=== PATIENT | male | born 1940 | race Caucasian/White ===

== ENCOUNTER → 2017-07-06 15:06 | Outpatient (CLI) | payer OTHER, MEDICARE, SELFPAY | PROVIDERS: Visit Provider Urology | DX: N39.0 Urinary tract infection, site not specified (principal) | CPT/HCPCS: 87086; 87088 ==

== ENCOUNTER → 2018-12-06 09:56 | Outpatient (CLI) | payer OTHER, MEDICARE, SELFPAY ==
[2016-09-18 09:07] VITALS: BMI 28.3
[2018-12-06 11:13] LABS: PSA,Total- Diagnostic < 0.01 ng/mL (0.0-4.0)
== END ==
PROVIDERS: Family Provider Family Medicine; PCP Family Medicine; Referring Provider Urology; Visit Provider Urology
DX: C61 Malignant neoplasm of prostate (principal)
CPT/HCPCS: 36415; 84153

== ENCOUNTER 2021-12-06 04:09 | Emergency (ER) | payer OTHER, MEDICARE, SELFPAY ==
[2021-12-06 04:09] VITALS: BP 151/91; PULSE 73; RESP 17; TEMP 35.8; O2SAT 99; BMI 24.2
--- NOTE | 2021-12-06 04:43 | EKG12_ITS ---
Test Reason : CP Blood Pressure : / mmHG Vent. Rate : 072 BPM Atrial Rate : 072 BPM P-R Int : 218 ms QRS Dur : 084 ms QT Int : 376 ms P-R-T Axes : 105 -07 038 degrees QTc Int : 411 ms Sinus rhythm with 1st degree A-V block Otherwise normal ECG Confirmed by MATHEW YOUNG, ISAAC ([id number]), website/blog editor MC HOWELL ([id number]) on 12/09/2021 12:35:40 PM Referred By: KT Confirmed By:ISAAC CARMONA MD
--- NOTE | 2021-12-06 04:50 | RAD_ITS ---
EXAM: XR CHEST, 2 VIEWS CLINICAL INDICATION: chest pain TECHNIQUE: Frontal and lateral views of the chest. This report was created using [employer] report generation technology. COMPARISON: None. FINDINGS: LUNGS AND PLEURAL SPACES: Unremarkable. No consolidation or edema. No pneumothorax. No effusion. HEART: Unremarkable. Cardiac silhouette not enlarged. No pulmonary venous hypertension. MEDIASTINUM: Mild-moderate elongation of the thoracic aorta. No hilar enlargement. BONES/JOINTS: Mild thoracic dextroscoliosis. Cholecystectomy clips. Mild thoracic degenerative spurring. No acute osseous abnormality. SOFT TISSUES: Unremarkable. RAD/Chest PA and Lateral IMPRESSION: No radiographic evidence of acute cardiopulmonary disease. Electronically Signed: Diego Lopez MD at 5:20 EDT ,
[2021-12-06 04:53] LABS: Absolute Lymphocyte Count 2.47 X10^3/uL (0.83-4.51); Absolute Neutrophil Count 3.8 X10^3/uL (2.0-7.7); Basophil# 0.04 X10^3/uL; Basophil% 0.5 % (0-1); Eosinophil# 0.18 X10^3/uL; Eosinophils% 2.4 % (0-5); Hematocrit 47.3 % (40-54); Hemoglobin 15.9 g/dL (13.0-16.5); Lymphocyte # 2.47 X10^3/ul (0.83-4.51); Lymphocyte % 33.3 % (19-41); Mean Corp Hgb Conc 33.6 g/dL (32-36); Mean Corpuscular Volume 89.2 fL (80-94); Mean Platelet Vol. 9.6 fl (6.2-12.0); Monocyte# 0.89 X10^3/uL; NRBC Flagged by Analyzer 0 % (0-5); Neutrophil # 3.81 X10^3/uL (2.7-7.7); Neutrophil % 51.5 % (47-70); Platelet Count 198 K/mm3 (150-450); RBC Distribution Width CV 13.1 % (11.6-14.6); RBC Distribution Width SD 42.6 fl (35.1-43.9); White Blood Count 7.4 K/mm3 (4.4-11.0)
[2021-12-06] MEDS: Aspirin 325 MG Tablet PO (05:04)
[2021-12-06] MEDS: Orphenadrine 60 MG/2 ML Ampul IV (05:04)
[2021-12-06 05:09] VITALS: BP 157/72; PULSE 66; RESP 16; O2SAT 95
[2021-12-06 05:10] LABS: Anion Gap 7 (5-15); BUN 24 mg/dL (7-18); BUN/Creat Ratio 21.6 RATIO (10-20); Calcium,Total 9.3 mg/dL (8.5-10.1); Chloride 101 mmol/L (98-107); Creatinine, Serum 1.11 mg/dL (0.70-1.30); EST Glomerular Filtration Rate 68 mL/min (>60); Est Glom Filt Rate - Afr Amer 82 mL/min (>60); Estimated Creatinine Clearance 55.72 ml/min; Glucose 128 mg/dL (74-106); Magnesium 1.4 mg/dL (1.6-2.6); Potassium 3.8 mmol/L (3.5-5.1); Sodium Level 138 mmol/L (136-145); Troponin-I HS 6 pg/mL (3.0-78.0)
--- NOTE | 2021-12-06 05:59 | EDS_ITS ---
HPI History of Present Illness Chief Complaint: Chest Pain Narrative Narrative: Patient is a 81-year-old male with past medical history of hypertension type 2 diabetes and hyperlipidemia. He states that he has had a mild cough for the past 3 to 4 days and now is noticed some left-sided chest pain especially after coughing. He states because of his medical issues he is concerned that this chest pain could be cardiac or even a lung infection because of the cough and therefore comes in for evaluation. He denies any recent surgery travel history of DVT/PE. [facility] Home Medications aspirin 325 mg tablet 325 mg PO DAILY 04/28/16 [History Last Taken 09/07/16] atorvastatin 40 mg tablet 40 mg PO QHS 04/28/16 [History Last Taken Unknown] enalapril maleate 10 mg tablet (Vasotec) 10 mg PO DAILY 04/28/16 [History Last Taken 09/18/16] glucosamine 750 [id number] no1 644 mg-C 30 mg-jailyn 1 mg tablet (Osteo Bi-Flex Triple Strength) 1 ea PO DAILY 04/28/16 [History Last Taken Unknown] hydrochlorothiazide 12.5 mg capsule 12.5 mg PO DAILY 04/28/16 [History Last Taken Unknown] metformin 500 mg tablet 500 mg PO DAILY 04/28/16 [History Last Taken Unknown] metoprolol succinate 100 mg tablet,extended release 24 hr (Toprol XL) 100 mg PO DAILY 04/28/16 [History Last Taken Unknown] multivitamin with folic acid 400 mcg tablet (Thera) 1 tab PO DAILY 04/28/16 [History Last Taken Unknown] nitroglycerin 0.4 mg sublingual tablet 0.4 mg sublingual PRN PRN Angina 04/28/16 [History Last Taken Unknown] sucralfate 1 gram tablet 1 g PO QHS 04/28/16 [History Last Taken Unknown] clopidogrel 75 mg tablet 75 mg PO DAILY 09/10/16 [History Last Taken 09/07/16] metoprolol succinate 50 mg tablet,extended release 24 hr (Toprol XL) 50 mg PO DINNER 09/10/16 [History Last Taken 09/18/16] omeprazole 20 mg capsule,delayed release 20 mg PO DINNER 09/10/16 [History Last Taken Unknown] solifenacin 10 mg tablet (Vesicare) 10 mg PO DAILY 07/06/17 [History Last Taken Unknown] methocarbamol 500 mg tablet 500 mg PO 4X/DAY PRN PRN Muscle pain/spasm #40 tabs 12/06/21 [Rx Last Taken Unknown] Allergy/AdvReac Type Severity Reaction Status Date / Time nabumetone [From Relafen] AdvReac Other Verified 09/10/16 15:11 Surgical History (Updated 12/06/21 @ 04:14 by Aruna Watkins) History of heart artery stent Social History Smoking Status: Former smoker ROS ROS ED Constitutional Constitutional ED: Denies chills or fever(s) ENT ENT ED: Denies sore throat Cardiovascular Cardiovascular: Reports chest pain; Denies palpitations or racing heartbeat Respiratory/Chest Respiratory/Chest: Reports cough; Denies dyspnea Gastrointestinal Gastrointestinal: Denies abdominal pain, diarrhea, nausea or vomiting Genitourinary Genitourinary ED: Denies dysuria Musculoskeletal Musculoskeletal: Denies myalgias Integumentary Denies rash Neurologic Neurologic: Denies headache(s) Hematologic/Lymphatic Hematologic/Lymphatic: Reports easy bleeding and easy bruising EXAM Physical Exam Const Vital Signs: 12/06/21 04:09 12/06/21 04:12 12/06/21 05:09 Temperature 96.5 F L Temperature Source Temporal Pulse Rate 73 66 Respiratory Rate 17 16 Respiratory Effort Normal Respiratory Pattern Normal Blood Pressure 151/91 H 157/72 H Blood Pressure Mean 111 100 Pulse Ox 99 95 Oxygen Delivery Method Room Air Room Air 12/06/21 06:09 Temperature 98 F Temperature Source Pulse Rate 61 Respiratory Rate 17 Respiratory Effort Respiratory Pattern Blood Pressure 141/82 H Blood Pressure Mean Pulse Ox 96 Oxygen Delivery Method Positive well nourished and well developed General Appearance ED: well developed HEENT Reports moist mucous membranes HEENT Narrative: No tongue or lip swelling no oral lesions no airway edema or compromise Eyes PERRL and EOMs intact bilaterally Neck supple and no JVD Chest Wall Chest Narrative: Patient has reproducible left anterior chest wall pain in the intercostal regions of ribs 4-6 that he states is the same pain he has been experiencing. There is no bony deformity or crepitance or overlying soft tissue changes Resp normal respiratory effort and clear to auscultation bilaterally Resp Narrative: Breath sounds are diminished throughout but overall clear to auscultation with no signs of distress Cardio regular rate and regular rhythm Rate: other Other Details: Radial pulses are plus 2 out of 4 bilaterally are equal and symmetric GI normal to inspection, nondistended, normoactive bowel sounds, non-tender and non-distended GI Narrative: No voluntary guarding or rigidity no pulsatile mass Auscultation: normoactive bowel sounds Palpation: soft Extremity normal to inspection Extremity Narrative: No asymmetric edema no pitting edema negative Homans' sign bilaterally Neuro oriented x3 and CN's II-XII intact bilaterally Sensorium / Orientation: alert Psych mental status grossly normal Skin no rashes or lesions noted MDM MDM MDM Narrative Medical decision making narrative: Patient presented to the ER with stable vitals and a history and exam most consistent with chest wall pain. However he does have cough and there is concern this could be related to an underlying lung pathology and he does have history of CAD so a basic cardiac work-up was obtained. EKG was sinus rhythm and troponin was normal at 6. Chest x-ray reviewed no acute lung changes. On reevaluation patient reports improvement of the pain after aspirin and Norflex. Therefore at this time as his work-up is negative and his exam is most consistent with chest wall discomfort versus cardiac I do not feel there is need for further evaluation. Patient be placed on Robaxin to help with his symptoms and is otherwise safe for discharge Lab Data Attestation: I reviewed the patient's lab results. Labs: Laboratory Results - last 24 hr 12/06/21 12/06/21 04:15 04:15 WBC 7.4 RBC 5.30 Hgb 15.9 Hct 47.3 MCV 89.2 MCH 30.0 MCHC 33.6 RDW Std Deviation 42.6 RDW Coeff of Maria Ines 13.1 Plt Count 198 MPV 9.6 Immature Gran % (Auto) 0.300 Neut % (Auto) 51.5 Lymph % (Auto) 33.3 Sterling % (Auto) 12.0 H Eos % (Auto) 2.4 Baso % (Auto) 0.5 Absolute Neuts (auto) 3.8 Absolute Lymphs (auto) 2.47 Nucleated RBC % 0 Sodium 138 Potassium 3.8 Chloride 101 Carbon Dioxide 30.0 Anion Gap 7 BUN 24 H Creatinine 1.11 Estim Creat Clear Calc 55.72 Est GFR (MDRD) Af Amer 82 Est GFR (MDRD) Non-Af 68 BUN/Creatinine Ratio 21.6 H Glucose 128 H Calcium 9.3 Magnesium 1.4 L Troponin I High Sens 6 Radiography Diagnostic Testing: Clinical Impression(s) from Imaging Studies Chest X-Ray 12/06/21 04:50 IMPRESSION: No radiographic evidence of acute cardiopulmonary disease. Electronically Signed: Diego Lopez MD at 5:20 EDT , 2 view chest x-ray as interpreted by the emergency medicine physician reveals no acute infiltrate pneumothorax or pleural effusion Discharge Plan Triage Chief Complaint: Chest Pain ED Provider: Berry Harden Dx/Rx/DC Orders Clinical Impression: Anterior chest wall pain, Diabetes mellitus, type 2, Benign essential hypertension Instructions: ED Chest Pain, Noncardiac, ED Chest Wall Strain Prescriptions: New methocarbamol 500 mg tablet 500 mg PO 4X/DAY PRN PRN (Reason: Muscle pain/spasm) Qty: 40 0RF No Action atorvastatin 40 MG tablet 40 mg PO QHS Label Comments: CHOLESTEROL metformin 500 MG tablet 500 mg PO DAILY Label Comments: DIABETES enalapril maleate [Vasotec] 10 MG tablet 10 mg PO DAILY Label Comments: BP aspirin 325 MG tablet 325 mg PO DAILY Label Comments: WAS TOLD TO STOP FOR SURGERY 10 DAYS PRE OP sucralfate 1 GM tablet 1 g PO QHS Label Comments: STOMACH metoprolol succinate [Toprol XL] 100 MG tablet extended release 24 hr 100 mg PO DAILY Label Comments: BP hydrochlorothiazide 12.5 MG capsule 12.5 mg PO DAILY Label Comments: WATER PILL nitroglycerin 0.4 MG tablet, sublingual 0.4 mg sublingual PRN PRN (Reason: Angina) Label Comments: ALSO TAKES PRIOR TO TREADMILL EXERCISE PER multivitamin with folic acid [Thera] 1 TABLET tablet 1 tab PO DAILY [id number] [Osteo Bi-Flex Triple Strength] 1 EACH tablet 1 ea PO DAILY Label Comments: SUPPLEMENT metoprolol succinate [Toprol XL] 50 MG tablet extended release 24 hr 50 mg PO DINNER Label Comments: BP omeprazole 20 MG capsule 20 mg PO DINNER Label Comments: REFLUX solifenacin [Vesicare] 10 MG tablet 10 mg PO DAILY Label Comments: URINE clopidogrel 75 MG tablet 75 mg PO DAILY Label Comments: WAS TOLD TO STOP FOR SURGERY Primary Care Provider: Jake Watkins Referrals: Jake Watkins MD [Primary Care Provider] - Activity Restrictions/Additional Instructions: Your work-up does not show any signs of heart damage or lung pathology. I believe your pain is related to muscles in the chest wall. Therefore take the muscle relaxer as directed to help control symptoms and return to the ER should you have any further concerns Disposition Disposition: Home, Self Care Discharge Date/Time: 12/06/21 06:14
[2021-12-06 06:09] VITALS: BP 141/82; PULSE 61; RESP 17; TEMP 36.6; O2SAT 96
== END 2021-12-06 06:14 | disposition home or self-care (01) ==
PROVIDERS: Emergency Provider Emergency Medicine; PCP Family Medicine; Visit Provider Emergency Medicine
DX: R07.89 Other chest pain (principal); E11.9 Type 2 diabetes mellitus without complications; R05.9 Cough, unspecified; I10 Essential (primary) hypertension; E78.5 Hyperlipidemia, unspecified; Z79.82 Long term (current) use of aspirin; Z79.84 Long term (current) use of oral hypoglycemic drugs; Z79.899 Other long term (current) drug therapy; Z87.891 Personal history of nicotine dependence; I25.10 Atherosclerotic heart disease of native coronary artery without angina pectoris
CPT/HCPCS: 71046; 80048; 83735; 84484; 85025; 93005; 96374; 99283; A4216

== ENCOUNTER → 2024-08-22 | Outpatient (REF) | payer OTHER, MEDICAID, SELFPAY ==
--- OUTSIDE RECORDS SUMMARY | 2024-08-22 04:33 | XMS RPT_ITS | CCD ---
Author Organization [facility] Care Team Providers Care Policy Checker Name Role Phone Jake Duque Unavailable Jake Duque Attending Unavailable Jake Duque Primary Care Unavailable Jake Duque Admitting Unavailable Jake Duque Admitting Unavailable Jake Duque Attending Unavailable DuqueJake barnes Primary Care Unavailable DuqueJake barnes Admitting Unavailable DuqueJake barnes Attending Unavailable Jake Duque Primary Care Unavailable Jake Duque Admitting Unavailable Jake Duque Attending Unavailable Roland Jake Primary Care Unavailable Jake Duque Unavailable Unavailable Jake Duque O Unavailable Unavailable Jake Duque Unavailable Unavailable Jake Duque MD Unavailable Unavailable Jake Duque Unavailable Unavailable Jake Duque O Unavailable Unavailable Unavailable Jake Duque Attending Unavailable Jake Duque Referring Unavailable Jake Duque Primary Care Unavailable Jake Duque Attending Unavailable Jake Duque Referring Unavailable Jake Duque Primary Care Unavailable Jake Duque Attending Unavailable Jake Duque Referring Unavailable Jake Duque Primary Care Unavailable Josiane Harden Attending Unavailable Jake Duque Primary Care Unavailable Jake Duque MD Primary Care Provider [phone] JAKE DUQUE Primary Care Unavailable STENTZ, JOSIANE Primary Care Unavailable DUQUEJAKE BARNES Attending Unavailable JAKE DUQUE O Referring Unavailable STENTZ, JOSIANE Primary Care Unavailable STENTZulema, JOSIANE Attending Unavailable JAKE DUQUE Referring Unavailable JOSIANE DANIELS Primary Care Unavailable Allergies Allergy Classification Reported Allergen(s) Allergy Type Date of Onset Reaction(s) Facility NSAIDs (4 sources) NSAIDs; Translations: [NSAIDs] Drug Allergy [facility] Work Phone: (14 sources) nabumetone; Translations: [Relafen] Drug Allergy 5 Unknown [facility] (4 sources) nabumetone; Translations: [Relafen] Drug Allergy [facility] Repository (9 sources) NSAIDs; Translations: [NSAIDs] Propensity to adverse reactions to drug (disorder) [facility] Repository (1 source) nabumetone Drug Allergy 7 [facility] Repository (7 sources) Non-steroidal anti-inflammator y agent; Translations: [NSAIDS (NON-STEROIDAL ANTI-INFLAMMATOR Y DRUG)] Drug Allergy 3 Unknown [facility] Work Phone: (5 sources) Mirtazapine; Translations: [MIRTAZAPINE] Drug Allergy 3 Other [facility] Work Phone: Medications Current Medications Medication Drug Class(es) Dates Sig (Normalized) Sig (Original) atorvastatin 40 mg oral tablet (19 sources) HMG-CoA Reductase Inhibitor Start: 04-28-2016 End: 01-19-2025 take 1 tablet by mouth once daily atorvastatin (Lipitor) 40 mg tablet Indications: Hypercholesterolemia Take 1 tablet (40 mg) by mouth once daily. 90 tablet 3 01/20/2024 01/19/2025 Active clopidogrel 75 mg oral tablet (15 sources) P2Y12 Platelet Inhibitor Start: 09-10-2016 End: 01-11-2024 take 1 tablet by mouth once daily clopidogrel (Plavix) 75 mg tablet Indications: Atherosclerosis of [place] coronary artery of [place] heart with stable angina pectoris ([facility]) Take 1 tablet (75 mg) by mouth once daily. 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 30 tablet 11 10/01/2022 01/11/2023 Discontinued (Ineffective) enalapril maleate 10 mg oral tablet (19 sources) Angiotensin Converting Enzyme Inhibitor Start: 04-28-2016 End: 01-19-2025 take 1 tablet by mouth once daily enalapril (Vasotec) 10 mg tablet Indications: Primary hypertension Take 1 tablet (10 mg) by mouth once daily. 90 tablet 3 01/20/2024 01/19/2025 Active Fnhelwid-Uodz-Cdv5-C-Ma ng-Bosw (Osteo Bi-Flex Caplet) 1 EACH tablet (1 source) Start: 04-28-2016 take 1 tablet by mouth once daily Seehvvwq-Caao-Afc9-C-M ang-Bosw (Osteo Bi-Flex Caplet) 1 EACH tablet Active 1 EACH PO DAILY April 28, 2016 1:00am hydroCHLOROthiazide 12.5 mg oral capsule (19 sources) Thiazide Diuretic Start: 02-07-2015 End: 01-19-2025 take 1 capsule by mouth once daily hydroCHLOROthiazide (Microzide) 12.5 mg capsule Indications: Primary hypertension Take 1 capsule (12.5 mg) by mouth once daily. 90 capsule 3 01/20/2024 01/19/2025 Active Lactobac no.41/Bifidobact no.7 (PROBIOTIC-10 ORAL) (1 source) Lactobac no.41/Bifidobact no.7 (PROBIOTIC-10 ORAL) Take by mouth daily. Active LORazepam 0.5 mg oral tablet (1 source) Benzodiazepine Start: 01-20-2024 End: 04-19-2024 take 1 tablet by mouth twice daily as needed for anxiety LORazepam (Ativan) 0.5 mg tablet Indications: Insomnia due to medical condition Take 1 tablet (0.5 mg) by mouth 2 times a day as needed for anxiety. 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 90 capsule 3 04/09/2023 04/08/2024 Active Start: 02-17-2022 take 1 capsule by mo [facility] once daily Memantine HCl ER 28 MG Oral Capsule Extended Release 24 Hour TAKE 1 CAPSULE Daily Quantity: 90 Refills: 3 Ordered: 13-Mar-2022 Jake Duque MD Start : 17-Feb-2022 Active change to 90 day supply Start: 01-13-2022 End: 02-17-2022 take 1 tablet by mouth twice daily Memantine HCl - 10 MG Oral Tablet TAKE 1 TABLET TWICE DAILY. Quantity: 60 Refills: 1 Ordered: 13-Jan-2022 Jake Duque MD Start : 13-Jan-2022 End : 17-Feb-2022 Complete End: 01-11-2023 take 1 capsule by mouth once daily memantine 7-21-28 mg cap,sprinkle,ER 24hr dose pack Take 1 capsule by mouth once daily. 0 01/11/2023 Discontinued (Therapy completed) 24 hr metFORMIN hydrochloride 500 mg extended release oral tablet (18 sources) Biguanide Start: 09-14-2022 End: 01-19-2025 take 2 tablets by mouth once daily metFORMIN XR 500 mg 24 hr tablet Indications: Type 2 diabetes mellitus without complication, without long-term current use of insulin (Multi) Take 2 tablets (1,000 mg) by mouth once daily. 180 tablet 3 01/20/2024 01/19/2025 Active Start: 04-17-2019 take 2 tablets by mo ut once daily metFORMIN HCl ER 500 MG Oral Tablet Extended Release 24 Hour TAKE 2 TABLET Daily Quantity: 180 Refills: 3 Ordered: 13-Jan-2022 Jake Duque MD Start : 17-Apr-2019 Active Start: 04-17-2019 take 4 tablets by [facility] once daily metFORMIN HCl ER 500 MG Oral Tablet Extended Release 24 Hour TAKE 4 TABLET Daily Quantity: 360 Refills: 1 Ordered: 02-Oct-2021 Jake Duque MD Start : 17-Apr-2019 Active Start: 04-28-2016 take 500 mg by mouth once rachel y Metformin Active 500 MG PO DAILY April 28, 2016 1:00am take 2 tablets by [facility] once daily metFORMIN XR (Glucophage-XR) 500 mg 24 hr tablet Take 2 tablets (1,000 mg) by mouth once daily. 0 Active methocarbamol 500 mg oral tablet (1 source) Muscle Relaxant Start: 12-06-2021 take 500 mg by mouth four times daily as needed Methocarbamol Active 500 MG PO 4 TIMES DAILY NEEDED December 06, 2021 6:00am 24 hr metoprolol succinate 100 mg extended release oral tablet (20 sources) beta-Adrenergic Urszula Start: 01-09-2019 take 1.5 tablets by mouth once daily Metoprolol Succinate ER 100 MG Oral Tablet Extended Release 24 Hour TAKE 1.5 TABLET Daily Quantity: 135 Refills: 3 Ordered: 11-Jan-2020 Jake Duque MD Start : 09-Jan-2019 Active Start: 09-10-2016 take 1 tablet by [facility] every twenty-four hours at dinner Metoprolol Succinate (Toprol Xl) 50 MG tablet extended release 24 hr Active 50 MG PO WITH DINNER September 10, 2016 12:00am Start: 04-28-2016 End: 01-19-2025 take 1 tablet by mouth once daily metoprolol succinate XL (Toprol-XL) 100 mg 24 hr tablet Indications: Primary hypertension Take 1 tablet (100 mg) by mouth once daily. 90 tablet 3 01/20/2024 01/19/2025 Active take 1 tablet by mouth once rachel y metoprolol succinate (TOPROL-XL) 100 MG 24 hr tablet Take 150 mg by mouth daily. Active Multivitamin With Folic Acid (Multivitamin) 1 TABLET tablet (1 source) Start: 04-28-2016 take 1 tablet by mouth once daily Multivitamin With Folic Acid (Multivitamin) 1 TABLET tablet Active 1 TABLET PO DAILY April 28, 2016 1:00am Multivitamin With Minerals Tablet (1 source) take 1 tablet by mouth once daily multivitamin with minerals tablet Take 1 tablet by mouth daily. Active nitroglycerin 0.4 mg sublingual tablet (15 sources) Nitrate Vasodilator Start: 01-10-2015 nitroglycerin (Nitrostat) 0.[address] 1 tablet (0.4 mg) under the tongue every 5 minutes if needed for chest pain. 01/10/2015 Active solifenacin succinate 10 mg oral tablet (2 sources) Cholinergic Muscarinic Antagonist Start: 09-10-2016 End: 09-13-2017 take 1 tablet by mouth once daily Solifenacin (Vesicare) 10 MG tablet Active 10 MG PO DAILY September 10, 2016 12:00am Completed/Discontinued Medications Medication Drug Class(es) Dates Sig (Normalized) Sig (Original) aspirin 81 mg delayed release oral tablet (17 sources) Nonsteroidal Anti-inflammatory Drug Start: 01-09-2019 take 1 tablet by mouth once daily Aspirin 81 MG Oral Tablet Delayed Release TAKE 1 TABLET DAILY. Quantity: 0 Refills: 0 Ordered: 09-Jan-2019 DO Start : 09-Jan-2019 Active Start: 04-28-2016 take 325 mg by mouth once rachel y Aspirin Active 325 MG PO DAILY April 28, 2016 1:00am chondroitin sulfates 200 mg / glucosamine hydrochloride 250 mg oral tablet (2 sources) End: 07-07-2022 take 1 tablet by mouth once daily glucosamine-chondroitin 250-200 mg tablet Take 1 tablet by mouth once daily. 0 07/07/2022 Discontinued (Therapy completed) Glucosamine Owen droitin TABS Quantity: 0 Refills: 0 Ordered: 11-Jul-2021 DO Active dextran 70 1 mg/ml / hypromellose 3 mg/ml ophthalmic solution (8 sources) Plasma Volume Data Integrity Analyst Start: 03-12-2020 take 1 drop(s) into the eye(s) once daily as needed Artificial Tears 0.1-0.3 % Ophthalmic Solution INSTILL 1 DROP Daily PRN Quantity: 0 Refills: 0 Ordered: 12-Mar-2020 DO Start : 12-Mar-2020 Active 24 hr donepezil hydrochloride 10 mg / memantine hydrochloride 28 mg extended release oral capsule (2 sources) F-kttbnh-A-aspart ate Receptor Antagonist Start: 09-14-2022 End: 01-11-2023 take 1 capsule by mouth once daily memantine-donepezi L 28-10 mg capsule,sprinkle,E R 24hr Indications: 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 90 capsule 3 09/14/2022 01/11/2023 Discontinued (Duplicate order) take 1 capsule by mouth once josse ly memantine-donepeziL 28-10 mg capsule,sprinkle,ER 24hr Take 28 mg by mouth once daily. 0 Active 24 hr mirabegron 25 mg extended release oral tablet (3 sources) beta3-Adrenergic Agonist Start: 01-11-2019 take 1 tablet by mouth once daily Myrbetriq 25 MG Oral Tablet Extended Release 24 Hour Take 1 tablet daily Refills: 0 Start : 11-Jan-2019 Active take 25 mg by mouth once daily m irabegron (MYRBETRIQ) 25 mg Tb24 Take by mouth daily. Active mirtazapine 15 mg oral tablet (2 sources) Start: 01-11-2023 End: 03-12-2023 take 1 tablet by mouth once daily at bedtime mirtazapine (Remeron) 15 mg tablet Indications: Abnormal weight loss Take 1 tablet (15 mg) by mouth once daily at bedtime. 30 tablet 1 01/11/2023 02/23/2023 Discontinued (Side effects) multivitamin with minerals tablet (1 source) End: 07-07-2022 take 1 tablet by mouth once daily multivitamin with minerals tablet Take 1 tablet by mouth once daily. 0 07/07/2022 Discontinued (Therapy completed) omeprazole 20 mg delayed release oral capsule (11 sources) Proton Pump Inhibitor Start: 09-10-2016 End: 07-07-2022 take 1 capsule by mouth once daily Omeprazole 20 MG Oral Capsule Delayed Release TAKE 1 CAPSULE Daily Quantity: 0 Refills: 0 Ordered: 11-Jan-2019 DO Start : 11-Jan-2019 Active 24 hr oxybutynin chloride 10 mg extended release oral tablet (6 sources) Cholinergic Muscarinic Antagonist Start: 01-11-2020 take 1 tablet by mouth once daily Oxybutynin Chloride ER 10 MG Oral Tablet Extended Release 24 Hour Take 1 tablet daily Quantity: 90 Refills: 1 Ordered: 11-Jan-2020 Jake Duque MD Start : 11-Jan-2020 Active sucralfate 1000 mg oral tablet (7 sources) Aluminum Complex Start: 01-09-2019 take 10 mL by mouth once daily Sucralfate 1 GM/10ML Oral Suspension TAKE 10 ML Daily Quantity: 900 Refills: 2 Jake Duque Start : 09-Jan-2019 Active Start: 04-28-2016 take 1 tablet by dmitri th once daily Sucralfate 1 GM Oral Tablet Take 1 tablet daily Quantity: 90 Refills: 3 Ordered: 17-Apr-2020 Jake Duque MD Start : 17-Apr-2020 Active change to tabs, liquid not covered Start: 08-25-2010 take 1 g by mouth once daily s ucralfate (CARAFATE) 100 mg/mL suspension Take 1 g by mouth daily. 08/25/2010 Active Problems Active Problems Problem Classification Problem Date Documented Date Episodic/Chronic Abdominal pain (1 source) Abdominal pain; Translations: [Unspecified abdominal pain] Episodic Cancer of prostate (20 sources) Malignant tumor of prostate; Translations: [Malignant neoplasm of prostate] Onset: 07-07-2022 07-07-2022 Chronic Cancer of prostate (1 source) History of malignant neoplasm of prostate; Translations: [Personal history of malignant neoplasm of prostate] Episodic Cataract (20 sources) Age-related cataract; Translations: [Combined forms of age-related cataract, bilateral] Onset: 07-07-2022 Resolved: 07-08-2020 07-07-2022 Chronic Chronic kidney disease (4 sources) Chronic kidney disease; Translations: [Chronic kidney disease, stage 3 unspecified (Multi)] Onset: 07-20-2023 Coronary atherosclerosis and other heart disease (20 sources) Coronary arteriosclerosis; Translations: [Coronary atherosclerosis] Onset: 12-09-2015 12-09-2015 Chronic Delirium, dementia, and amnestic and other cognitive disorders (12 sources) Vascular dementia ; Translations: [Vascular dementia, uncomplicated] Onset: 07-07-2022 07-07-2022 Chronic Diabetes mellitus with complications (20 sources) Diabetic neuropathy; Translations: [Diabetes with neurological manifestations, type II or unspecified type, not stated as uncontrolled] Onset: 07-07-2022 07-07-2022 Chronic Diabetes mellitus without complication (11 sources) Type 2 diabetes mellitus; Translations: [Type 2 diabetes mellitus without complications] Onset: 07-20-2023 07-20-2023 Chronic Disorders of lipid metabolism (20 sources) Hypercholesterolemia; Translations: [Pure hypercholesterolemia] Onset: 07-07-2022 07-07-2022 Chronic Esophageal disorders (1 source) Gastroesophageal reflux disease; Translations: [Gastro-esophageal reflux disease without esophagitis] Chronic Essential hypertension (20 sources) Essential hypertension; Translations: [Hypertensive disorder] Onset: 09-13-2017 09-13-2017 Chronic Genitourinary symptoms and ill-defined conditions (19 sources) Urge incontinence of urine; Translations: [Urge incontinence] Onset: 07-07-2022 07-07-2022 Chronic Hyperplasia of prostate (20 sources) Benign prostatic hypertrophy without outflow obstruction; Translations: [Benign prostatic hypertrophy with outflow obstruction] Onset: 07-07-2022 07-07-2022 Chronic Hypertension with complications and secondary hypertension (4 sources) Hypertensive chronic kidney disease with stage 1 through stage 4 chronic kidney disease, or unspecified chronic kidney disease; Translations: [Hypertensive chronic kidney disease with stage 1 through stage 4 chronic kidney disease, or unspecified chronic kidney disease] Onset: 07-20-2023 Chronic Nonspecific chest pain (4 sources) Chest pain; Translations: [Anterior chest wall pain] Episodic Other acquired deformities (13 sources) Spondylolysis of cervical spine; Translations: [Other anomalies of spine] Onset: 07-07-2022 01-11-2023 Episodic Other acquired deformities (2 sources) Cervical spondylosis; Translations: [Spondylolysis, cervical region] Onset: 07-07-2022 07-07-2022 Episodic Other aftercare (14 sources) Patient encounter status; Translations: [Long-term (current) use of other medications] Resolved: 07-08-2020 Episodic Other diseases of kidney and ureters (15 sources) Cyst of kidney; Translations: [Cystic kidney disease, unspecified] Onset: 07-07-2022 07-07-2022 Episodic Other eye disorders (8 sources) Pterygium; Translations: [Pterygium, unspecified] Episodic Other hereditary and degenerative nervous system conditions (5 sources) Impaired cognition; Translations: [Mild cognitive impairment, so stated] Chronic Other nervous system disorders (2 sources) Other chronic pain; Translations: [Other chronic pain] Onset: 07-07-2022 Chronic Other nervous system disorders (1 source) Impaired cognition; Translations: [Mild cognitive impairment] Episodic Other nutritional; endocrine; and metabolic disorders (1 source) Body mass index 25-29 - overweight; Translations: [Body mass index (BMI) of 28.0 to 28.9 in adult] Chronic Residual codes; unclassified (2 sources) Insomnia co-occurrent and due to medical condition; Translations: [Insomnia due to medical condition] Onset: 07-27-2024 01-20-2024 Chronic Residual codes; unclassified (1 source) Insomnia due to medical condition; Translations: [Insomnia due to medical condition] Onset: 07-27-2024 Chronic Residual codes; unclassified (2 sources) Body mass index 20-24 - normal; Translations: [Body Mass Index between 19-24, adult] Episodic Spondylosis; intervertebral disc disorders; other back problems (3 sources) Cervical spondylosis; Translations: [Cervical spondylolysis] Chronic Spondylosis; intervertebral disc disorders; other back problems (17 sources) Low back pain; Translations: [Lumbago] Onset: 07-07-2022 07-07-2022 Episodic Unclassified (1 source) Cough, unspecified; Translations: [Cough, unspecified] Onset: 06-18-2022 Unclassified (1 source) Vascular dementia, moderate, without behavioral disturbance, psychotic disturbance, mood disturbance, and anxiety; Translations: [Vascular dementia, moderate, without behavioral disturbance, psychotic disturbance, mood disturbance, and anxiety] Onset: 07-27-2024 Unclassified (1 source) Low back pain, unspecified; Translations: [Low back pain, unspecified] Onset: 07-07-2022 Unclassified (1 source) Vascular dementia, severe, without behavioral disturbance, psychotic disturbance, mood disturbance, and anxiety; Translations: [Vascular dementia, severe, without behavioral disturbance, psychotic disturbance, mood disturbance, and anxiety] Onset: 01-20-2024 Past or Other Problems Problem Classification Problem Date Documented Da te Episodic/Chronic Abdominal hernia (20 sources) Hiatal hernia; Translations: [Diaphragmatic hernia without mention of obstruction or gangrene] Onset: 07-07-2022 07-07-2022 Episodic Blindness and vision defects (20 sources) Presbyopia; Translations: [Regular astigmatism, bilateral] Onset: 07-07-2022 Resolved: 07-07-2022 07-07-2022 Episodic Chronic ulcer of skin (6 sources) Skin ulcer; Translations: [Non-pressure chronic ulcer of skin of other sites limited to breakdown of skin] Onset: 01-11-2023 Resolved: 01-20-2024 01-11-2023 Chronic Other acquired deformities (2 sources) Spondylolysis, cervical region; Translations: [Spondylolysis, cervical region] Onset: 07-07-2022 Episodic Other diseases of kidney and ureters (2 sources) Other obstructive and reflux uropathy; Translations: [Other obstructive and reflux uropathy] Onset: 07-07-2022 Episodic Other diseases of kidney and ureters (2 sources) Cyst of kidney, acquired; Translations: [Cyst of kidney, acquired] Onset: 07-07-2022 Episodic Other diseases of kidney and ureters (3 sources) Cyst of kidney; Translations: [Bilateral renal cysts] Other eye disorders (8 sources) Tear film insufficiency; Translations: [Tear film insufficiency, unspecified] Resolved: 07-08-2020 Episodic Other eye disorders (5 sources) Pterygium of right eye; Translations: [Unspecified pterygium of right eye] Onset: 07-07-2022 Resolved: 07-07-2022 07-07-2022 Episodic Other non-epithelial cancer of skin (11 sources) Malignant neoplasm of skin; Translations: [Unspecified malignant neoplasm of skin, unspecified] Onset: 06-06-2004 07-07-2022 Episodic Other nutritional; endocrine; and metabolic disorders (4 sources) Body mass index 25-29 - overweight; Translations: [Body Mass Index 28.0-28.9, adult] Resolved: 07-08-2020 Episodic Other nutritional; endocrine; and metabolic disorders (3 sources) Overweight in adulthood with body mass index of 25 or more but less than 30; Translations: [Body Mass Index 28.0-28.9, adult] Resolved: 07-08-2020 Episodic Other nutritional; endocrine; and metabolic disorders (9 sources) Abnormal weight loss; Translations: [Abnormal weight loss] Onset: 01-11-2023 01-11-2023 Episodic Other nutritional; endocrine; and metabolic disorders (1 source) Abnormal weight loss; Translations: [Abnormal weight loss] Onset: 01-11-2023 Episodic Residual codes; unclassified (7 sources) History of chest pain; Translations: [Personal history of other specified diseases] Resolved: 07-08-2020 Episodic Unclassified (6 sources) Patient encounter status; Translations: [Medication management] Unclassified (5 sources) Onset: 07-07-2022 Resolved: 01-20-2024 07-07-2022 Unclassified (1 source) Vascular dementia, moderate, without behavioral disturbance, psychotic disturbance, mood disturbance, and anxiety; Translations: [Vascular dementia, moderate, without behavioral disturbance, psychotic disturbance, mood disturbance, and anxiety] Onset: 07-27-2024 Unclassified (1 source) Low back pain, unspecified; Translations: [Low back pain, unspecified] Onset: 01-20-2024 Unclassified (1 source) Vascular dementia, severe, without behavioral disturbance, psychotic disturbance, mood disturbance, and anxiety; Translations: [Vascular dementia, severe, without behavioral disturbance, psychotic disturbance, mood disturbance, and anxiety] Onset: 01-20-2024 NEGATED: Highlighted row has not occurred!Residual codes; unclassified (13 sources) Disease Episodic Results Test Name Value Interpretation Reference Range Facility CBC (INCLUDES DIFF/PLT)on Basophils (Bld) [#/Vol] 0.049 10*3/uL Normal 0-200 [facility] Comment on above: Performed By: #### 927, [id number], [id number], 760 0, 25991, 83029 #### [facility] [place] [address] Director Of Development: Nash Ames MD Basophils/100 WBC (Bld) 0.6 % Normal [facility] Comment on above: Performed By: #### 927, 6399, 97308, 760 0, [id number], [id number] #### [facility] [place] [address] Director Of Development: Nash Ames MD Eosinophils (Bld) [#/Vol] 0.251 10*3/uL Normal 15-500 [facility] Comment on above: Performed By: #### 927, 6399, 17575, 760 0, 19335, [id number] #### [facility] [place] [address] Director Of Development: Nash Ames MD Eosinophils/100 WBC (Bld) 3.1 % Normal [facility] Comment on above: Performed By: #### 927, 6399, 64371, 760 0, [id number], #### [facility] [place] [address] Director Of Development: Nash Ames MD Erythrocyte distribution width (RBC) [Ratio] 13.0 % Normal 11.0-15.0 [facility] Comment on above: Performed By: #### 927, 6399, 17567, 760 0, 72499, #### [facility] [place] [address] Director Of Development: Nash Ames MD Hematocrit (Bld) [Volume fraction] 47.6 % Normal 38.5-50.0 [facility] Comment on above: Performed By: #### 927, 6399, 53003, 760 0, 84973, #### [facility] [place] [address] Director Of Development: Nash Ames MD Hemoglobin (Bld) [Mass/Vol] 15.3 g/dL Normal 13.2-17.1 [facility] Comment on above: Performed By: #### 927, 6399, 54679, 760 0, 82471, #### [facility] of [place] [address] Director Of Development: Nash Ames MD Lymphocytes (Bld) [#/Vol] 1.855 10*3/uL Normal 850-3900 [facility] Comment on above: Performed By: #### 927, 6399, 05655, 760 0, 11170, 86760 #### [facility] [place] [address] Director Of Development: Nash Ames MD Lymphocytes/100 WBC (Bld) 22.9 % Normal [facility] Comment on above: Performed By: #### 927, 6399, 10662, 760 0, 88379, #### [facility] of [address] [place] [address] Director Of Development: Nash Ames MD MCH (RBC) [Entitic mass] 30.1 pg Normal 27.0-33.0 [facility] Comment on above: Performed By: #### 927, 6399, 14245, 760 0, , #### [facility] [place] [address] Director Of Development: Nash Ames MD MCHC (RBC) [Mass/Vol] 32.1 g/dL Normal 32.0-36.0 [facility] Comment on above: Result Comment: For adults, a slight dec rease in the calculated MCHC value (in the range of 30 to 32 g/dL) is most likely not clinically significant; however, it should be interpreted with caution in correlation with other red cell parameters and the patient's clinical condition. Performed By: #### 9 27, 6399, 64723, 7600, , #### [facility] [place] [address] Director Of Development: Nash Ames MD MCV (RBC) [Entitic vol] 93.5 fL Normal 80.0-100.0 [facility] Comment on above: Performed By: #### 927, 6399, 79938, 760 0, , #### [facility] [place] [address] Director Of Development: Nash Ames MD Monocytes (Bld) [#/Vol] 0.826 10*3/uL Normal 200-950 [facility] Comment on above: Performed By: #### 927, 6399, 65781, 760 0, , #### [facility] [place] [address] Director Of Development: Nash Ames MD Monocytes/100 WBC (Bld) 10.2 % Normal [facility] Comment on above: Performed By: #### 927, 6399, 89165, 760 0, , #### [facility] of [address] [place] [address] Director Of Development: Nash Ames MD Neutrophils (Bld) [#/Vol] 5.119 10*3/uL Normal 6214-0403 [facility] Comment on above: Performed By: #### 927, 6399, 26812, 760 0, 22317, 52697 #### [facility] of [address], [address] [place] [address] Director Of Development: Nash Ames MD Neutrophils/100 WBC (Bld) 63.2 % Normal [facility] Comment on above: Performed By: #### 927, 6399, 24676, 760 0, 01134, 52300 #### [facility] of [place] [address] Director Of Development: Nash Ames MD Platelet mean volume (Bld) [Entitic vol] 9.7 fL Normal 7.5-12.5 [facility] Comment on above: Performed By: #### 927, 6399, 83696, 760 0, 19906, 90533 #### [facility] [place] [address] Director Of Development: Nash Ames MD Platelets (Bld) [#/Vol] 180 10*3/uL Normal 140-400 [facility] Comment on above: Performed By: #### 927, 6399, 23334, 760 0, 53316, 86343 #### [facility] [place] [address] Director Of Development: Nash Ames MD RBC (Bld) [#/Vol] 5.09 10*6/uL Normal 4.20-5.80 [facility] Comment on above: Performed By: #### 927, 6399, 42887, 760 0, 05412, 15343 #### [facility] of [address], [address] [place], [place] [address] Director Of Development: Nash Ames MD WBC (Bld) [#/Vol] 8.1 10*3/uL Normal 3.8-10.8 [facility] Comment on above: Performed By: #### 927, 6399, 67731, 760 0, 16359, 54208 #### [facility] [place] [address] Director Of Development: Nash Ames MD COMPREHENSIVE METABOLIC PANE L W/ANION GAPon 07-16-2024 Albumin [Mass/Vol] 4.5 g/dL Normal 3.6-5.1 [facility] Comment on above: Performed By: #### 927, 6399, 11252, 760 0, 65557, 35972 #### [facility] [place] [address] Director Of Development: Nash Ames MD ALP [Catalytic activity/Vol] 70 U/L Normal 35-144 [facility] Comment on above: Performed By: #### 927, 6399, 65225, 760 0, 58196, 37300 #### [facility] [place] [address] Director Of Development: Nash Ames MD ALT [Catalytic activity/Vol] 14 U/L Normal 9-46 [facility] Comment on above: Performed By: #### 927, 6399, 04953, 760 0, 14307, 53225 #### [facility] [place] [address] Director Of Development: Nash Ames MD AST [Catalytic activity/Vol] 16 U/L Normal 10-35 [facility] Comment on above: Performed By: #### 927, 6399, 82364, 760 0, 27914, 92586 #### [facility] [place] [address] Director Of Development: Nash Ames MD Bilirubin [Mass/Vol] 0.7 mg/dL Normal 0.2-1.2 [facility] Comment on above: Performed By: #### 927, 6399, 63422, 760 0, 82995, #### [facility] of [place] [id number] Director Of Development: Nash Ames MD Calcium [Mass/Vol] 9.8 mg/dL Normal 8.6-10.3 [facility] Comment on above: Performed By: #### 927, 6399, 07003, 760 0, 90871, 60472 #### [facility] [place] [address] Director Of Development: Nash Ames MD Chloride [Moles/Vol] 98 mmol/L Normal 98-110 [facility] Comment on above: Performed By: #### 927, 6399, 92563, 760 0, 33158, 68604 #### [facility] [place] [address] Director Of Development: Nash Ames MD CO2 [Moles/Vol] 30 mmol/L Normal 20-32 [facility] Comment on above: Performed By: #### 927, 6399, 04594, 760 0, 92481, #### [facility] [place] [address] Director Of Development: Nash Ames MD Creatinine [Mass/Vol] 1.18 mg/dL Normal 0.70-1.22 [facility] Comment on above: Performed By: #### 927, 6399, 01426, 760 0, 93294, 78008 #### [facility] [place] [address] Director Of Development: Nash Ames MD ELECTROLYTE BALANCE 8 mmol/L (calc) Normal 7-17 [facility] Comment on above: Performed By: #### 927, 6399, 88365, 760 0, 66613, 42729 #### [facility] [place] [address] Director Of Development: Nash Ames MD GFR/1.73 sq M.predicted among non-blacks MDRD (S/P/Bld) [Vol rate/Area] 62 mL/min/{1.73_m2} Normal > OR = 60 [facility] Comment on above: Performed By: #### 927, 6399, 85154, 760 0, 20959, #### [facility] [place] [address] Director Of Development: Nash Ames MD Glucose [Mass/Vol] 97 mg/dL Normal 65-99 [facility] Comment on above: Result Comment: Fasting reference interval Performed By: #### 9 27, 6399, 12660, 7600, 13078, #### [facility] of [address], [address] [place] [address] Director Of Development: Nash Ames MD Potassium [Moles/Vol] 4.8 mmol/L Normal 3.5-5.3 [facility] Comment on above: Performed By: #### 927, 6399, 69018, 760 0, 96326, #### [facility] [place] [address] Director Of Development: Nash Ames MD Protein [Mass/Vol] 7.1 g/dL Normal 6.1-8.1 [facility] Comment on above: Performed By: #### 927, 6399, 04947, 760 0, 58466, #### [facility] [place] [address] Director Of Development: Nash Ames MD Sodium [Moles/Vol] 136 mmol/L Normal 135-146 [facility] Comment on above: Performed By: #### 927, 6399, 03069, 760 0, 96181, #### [facility] [place] [address] Director Of Development: Nash Ames MD Urea nitrogen [Mass/Vol] 23 mg/dL Normal 7-25 [facility] Comment on above: Performed By: #### 927, 6399, 59110, 760 0, 03444, 85271 #### [facility] [place] [address] Director Of Development: Nash Ames MD HEMOGLOBIN A1c WITH eAGon eAG (mmol/L) 7.4 mmol/L Normal [facility] Comment on above: Performed By: #### 927, 6399, 55325, 760 0, 60415, 97472 #### [facility] [place] [address] Director Of Development: Nash Ames MD HbA1c (Bld) [Mass fraction] 6.3 % High <5.7 [facility] Comment on above: Result Comment: For someone without know n diabetes, a hemoglobin A1c value between 5.7% and 6.4% is consistent with prediabetes and should be confirmed with a follow-up test. For someone with known diabetes, a value <7% indicates that their diabetes is well controlled. A1c targets should be individualized based on duration of diabetes, age, comorbid conditions, and other considerations. This assay result is consistent with an increased risk of diabetes. Currently, no consensus exists regarding use of hemoglobin A1c for diagnosis of diabetes for children. Performed By: #### 9 27, 6399, 19787, 7600, 70085, #### [facility] [address], [address] [place] [address] Director Of Development: Nash Ames MD Magnesium [Mass/Vol] 134 mg/dL Normal [facility] Comment on above: Performed By: #### 927, 6399, 41841, 760 0, 24401, 93250 #### [facility] [place] [address] Director Of Development: Nash Ames MD LIPID PANEL, [facility] 07-06 Cholesterol [Mass/Vol] 126 mg/dL Normal <200 [facility] Comment on above: Order Comment: FASTING:YES FASTING: YES Performed By: #### 9 27, 6399, 01534, 7600, 84542, 77431 #### [facility] [place] [address] Director Of Development: Nash Ames MD Cholesterol in HDL [Mass/Vol] 62 mg/dL Normal > OR = 40 [facility] Comment on above: Order Comment: FASTING:YES FASTING: YES Performed By: #### 9 27, 6399, 28359, 7600, 59312, 60630 #### [facility] [address], [address] [place] [address] Director Of Development: Nash Ames MD Cholesterol in LDL [Mass/Vol] 46 mg/dL Normal [facility] Comment on above: Order Comment: FASTING:YES FASTING: YES Result Comment: Refe rence range: <100 Desirable range <100 mg/dL for primary prevention; <70 mg/dL for patients with CHD or diabetic patients with > or = 2 CHD risk factors. LDL-C is now calculated using the Per calculation, which is a validated novel method providing better accuracy than the Friedewald equation in the estimation of LDL-C. Timothy SS et al. VIRGILIO. 2013;310(19): 3201-0936 (http://education.Tuee/faq/PSH999) Performed By: #### 9 27, 6399, 29728, 7600, 02137, 67121 #### [facility] [address], [address] [place] [address] Director Of Development: Nash Ames MD Cholesterol.tot al/Cholesterol in HDL [Mass ratio] 2.0 {ratio} Normal <5.0 [facility] Comment on above: Order Comment: FASTING:YES FASTING: YES Performed By: #### 9 27, 6399, 48424, 7600, 29004, 99248 #### [facility] [address], [address] [place] [address] Director Of Development: Nash Ames MD NON HDL CHOLESTEROL 64 mg/dL (calc) Normal <130 [facility] Comment on above: Order Comment: FASTING:YES FASTING: YES Result Comment: For patients with diabetes plus 1 major ASCVD risk factor, treating to a non-HDL-C goal of <100 mg/dL (LDL-C of <70 mg/dL) is considered a therapeutic option. Performed By: #### 9 27, 6399, 74518, 7600, 95689, 13003 #### [facility] [address], [address] [place] [address] Director Of Development: Nash Ames MD Triglyceride [Mass/Vol] 92 mg/dL Normal <150 [facility] Comment on above: Order Comment: FASTING:YES FASTING: YES Performed By: #### 9 27, 6399, 39179, 7600, 99579, #### [facility] [address], [address] [place] [address] Director Of Development: Nash Ames MD PSA, TOTAL, MONITORINGon PSA, TOTAL, MONITORING 0.04 ng/mL Normal < OR = 4.00 [facility] Comment on above: Result Comment: The total PSA value from this assay system is standardized against the WHO standard. The test result will be approximately 20% lower when compared to the equimolar-standardized total PSA (Maria Elena [place]). Comparison of serial PSA results should be interpreted with this fact in mind. This test was performed using the Siemens chemiluminescent method. Values obtained from different assay methods cannot be used interchangeably. PSA levels, regardless of value, should not be interpreted as absolute evidence of the presence or absence of disease. Performed By: #### 9 27, 6399, 44812, 7600, 55709, #### [facility] [address], [address] [place] [address] Director Of Development: Nash Ames MD TSH W/REFLEX TO FT4on 2024 TSH W/REFLEX TO FT4 1.70 mIU/L Normal 0.40-4.50 [facility] Comment on above: Performed By: #### 927, 6399, 44987, 760 0, , #### [facility] [address], [address] [place] [address] Director Of Development: Nash Ames MD VITAMIN B12on 07-16-2024 Cobalamin (Vitamin B12) [Mass/Vol] 378 pg/mL Normal 200-1100 [facility] Comment on above: Result Comment: Please Note: Although the reference range for vitamin B12 is 200-1100 pg/mL, it has been reported that between 5 and 10% of patients with values between 200 and 400 pg/mL may experience neuropsychiatric and hematologic abnormalities due to occult B12 deficiency; less than 1% of patients with values above 400 pg/mL will have symptoms. Performed By: #### 9 27, 6399, 24184, 7600, 00501, 40554 #### [facility] [address] [facility], [address] [place] [address] Director Of Development: Nash Ames MD CBC panel Auto (Bld)on 01-19 Erythrocyte distribution width (RBC) [Ratio] 13.4 % Normal 11.5-14.5 [facility] Comment on above: Performed By: #### 13384-0 #### CECY WONG (61974) [facility] ([facility]) [address] [place] [address] 19817 Hematocrit (Bld) [Volume fraction] 43.8 % Normal 41.0-52.0 [facility] Comment on above: Performed By: #### 10375-6 #### CECY WONG (65039) [facility] ([facility]) [address] [place] [address] Hemoglobin (Bld) [Mass/Vol] 14.1 g/dL Normal 13.5-17.5 [facility] Comment on above: Performed By: #### 19942-3 #### CECY WONG ([id number]) [facility] ([facility]) [address] [place] [address] 97396 MCH (RBC) [Entitic mass] 29.7 pg Normal 26.0-34.0 [facility] Comment on above: Performed By: #### 50029-8 #### CECY WONG ([id number]) [facility] ([facility]) [address] [place] [address] 58963 MCHC (RBC) [Mass/Vol] 32.2 g/dL Normal 32.0-36.0 [facility] Comment on above: Performed By: #### 88146-7 #### CECY WONG (32557) [facility] ([facility]) [address] [place] [address] 25962 MCV (RBC) [Entitic vol] 92 fL Normal 80-100 [facility] Comment on above: Performed By: #### 34647-9 #### CECY WONG (09152) [facility] ([facility]) [address] [place] [address] 11811 Nucleated RBC/100 WBC (Bld) [Ratio] 0.0 /100 WBCs Normal 0.0-0.0 [facility] Comment on above: Performed By: #### 63313-0 #### CECY WONG (26697) [facility] ([facility]) [address] [place] [address] 15379 Platelets (Bld) [#/Vol] 197 x10*3/uL Normal 150-450 [facility] Comment on above: Performed By: #### 23125-2 #### CECY WONG (78077) [facility] ([facility]) [address] [place] [address] 84882 RBC (Bld) [#/Vol] 4.74 x10*6/uL Normal 4.50-5.90 [facility] Comment on above: Performed By: #### 16792-9 #### CECY WONG ([id number]) [facility] ([facility]) [address] [place] [address] 98235 WBC (Bld) [#/Vol] 8.0 x10*3/uL Normal 4.4-11.3 [facility] Comment on above: Performed By: #### 12321-5 #### CECY WONG ([id number]) [facility] ([facility]) [address] [place] [address] 83818 Cobalaminson 01-20-2024 Cobalamin (Vitamin B12) [Mass/Vol] 257 pg/mL Normal 211-911 [facility] Comment on above: Performed By: #### 2132-9 #### HOLDEN Larson ([id number]) [facility] ([facility]) [address] [place] [address] Comprehensive metabolic 2000 panelon 01-20-2024 Albumin BCP dye [Mass/Vol] 4.0 g/dL Normal 3.4-5.0 [facility] Comment on above: Performed By: #### 62065-4 #### CECY WONG (11758) [facility] ([facility]) [facility] [place] [address] ALP [Catalytic activity/Vol] 73 U/L Normal 33-136 [facility] Comment on above: Performed By: #### 17352-0 #### CECY WONG ([id number]) [facility] ([facility]) [address] [place] [address] 47285 ALT With P-5'-P [Catalytic activity/Vol] 11 U/L Normal 10-52 [facility] Comment on above: Result Comment: Patients treated with Dotson lfasalazine may generate falsely decreased results for ALT. Performed By: #### 2 4323-8 #### CECY WONG (06709) [facility] ([facility]) [address] [place] [address] 05043 Anion gap [Moles/Vol] 13 mmol/L Normal 10-20 [facility] Comment on above: Performed By: #### 65600-6 #### CECY WONG ([id number]) [facility] ([facility]) [address] [place] [address] 44745 AST With P-5'-P [Catalytic activity/Vol] 12 U/L Normal 9-39 [facility] Comment on above: Performed By: #### 24588-7 #### CECY WONG ([id number]) [facility] ([facility]) [address] [place] [address] 41209 Bilirubin [Mass/Vol] 0.6 mg/dL Normal 0.0-1.2 [facility] Comment on above: Performed By: #### 27087-8 #### CECY WONG ([id number]) [facility] ([facility]) [address] [place] [address] 12806 Calcium [Mass/Vol] 9.5 mg/dL Normal 8.6-10.3 [facility] Comment on above: Performed By: #### 03185-1 #### CECY WONG (85362) [facility] ([facility]) [address] [place] [address] 87746 Chloride [Moles/Vol] 99 mmol/L Normal 98-107 [facility] Comment on above: Performed By: #### 82650-8 #### CECY WONG ([id number]) [facility] ([facility]) [address] [place] [address] 50856 CO2 [Moles/Vol] 29 mmol/L Normal 21-32 [facility] Comment on above: Performed By: #### 48721-5 #### CECY WONG ([id number]) [facility] ([facility]) [address] [place] [address] 04271 Creatinine [Mass/Vol] 1.46 mg/dL High 0.50-1.30 [facility] Comment on above: Performed By: #### 00995-3 #### CECY WONG (59038) [facility] ([facility]) [address] [place] [address] 85911 Glomerular filtration rate/1.73 sq M.predicted 48 mL/min/1.73m*2 Low >60 [facility] Comment on above: Result Comment: Calculations of estimate d GFR are performed using the 2020 CKD-EPI Study Refit equation without the race variable for the IDMS-Traceable creatinine methods. https://jasn.asnjournals.org/content/early/ASN.2707507650 Performed By: #### 2 4323-8 #### CECY WONG (23463) [facility] ([facility]) [address] [place] [address] 17429 Glucose [Mass/Vol] 100 mg/dL High 74-99 [facility] Comment on above: Performed By: #### 28832-9 #### CECY WONG (47825) [facility] ([facility]) [address] [place] [address] 90909 Potassium [Moles/Vol] 5.0 mmol/L Normal 3.5-5.3 [facility] Comment on above: Performed By: #### 79180-9 #### CECY WONG (69701) [facility] ([facility]) [address] [place] [address] 80878 Protein [Mass/Vol] 6.4 g/dL Normal 6.4-8.2 [facility] Comment on above: Performed By: #### 80313-5 #### CECY WONG (60853) [facility] ([facility]) [address] [place] [address] 18479 Sodium [Moles/Vol] 136 mmol/L Normal 136-145 [facility] Comment on above: Performed By: #### 55397-0 #### CECY WONG (05112) [facility] ([facility]) [address] [place] [address] 93762 Urea nitrogen [Mass/Vol] 37 mg/dL High 6-23 [facility] Comment on above: Performed By: #### 19729-3 #### CECY WONG ([id number]) [facility] ([facility]) [address] [place] [address] 03474 HbA1c (Bld) [Mass fraction]o n 01-20-2024 Average glucose Estimated from glycated hemoglobin (Bld) [Mass/Vol] 131 mg/dL Normal Not Established [facility] Comment on above: Order Comment: Diagnosis of Diabetes-[place] Non-Diabetic: < or = 5.6% Increased risk for developing diabetes: 5.7-6.4% Diagnostic of diabetes: > or = 6.5% Performed By: #### 4 548-4 #### HOLDEN Larson ([id number]) [facility] ([facility]) [address] [place], [place] [address] Hemoglobin A1c/Hemoglobin.to myles 01-20-2024 HbA1c (Bld) [Mass fraction] 6.2 % High See comment [facility] Comment on above: Order Comment: Diagnosis of Diabetes-[place] Non-Diabetic: < or = 5.6% Increased risk for developing diabetes: 5.7-6.4% Diagnostic of diabetes: > or = 6.5% Performed By: #### 4 548-4 #### HOLDEN Larson ([id number]) [facility] ([facility]) [address] [place] [address] 08166 Lipid 1996 panelon Cholesterol [Mass/Vol] 109 mg/dL Normal 0-199 [facility] Comment on above: Result Comment: Age Desirable Borderline High High 0-19 Y 0 - 169 170 - 199 >/= 200 20-24 Y 0 - 189 190 - 224 >/= 225 >24 Y 0 - 199 200 - 239 >/= 240 All ranges are based on fasting samples. Specific therapeutic targets will vary based on patient-specific cardiac risk. Pediatric guidelines reference:Pediatrics 2011, 128(S5).Adult guidelines reference: NCEP ATPIII Guidelines,VIRGILIO 2001, 258:2486-97 Venipuncture immediately after or during the administration of Metamizole may lead to falsely low results. Testing should be performed immediately prior to Metamizole dosing. Performed By: #### 2 4331-1 #### CECY WONG (13027) [facility] ([facility]) [address] [place] [address] 60208 Cholesterol in HDL [Mass/Vol] 46.0 mg/dL Normal [facility] Comment on above: Result Comment: Age Very Low Low Normal High 0-19 Y < 35 < 40 40-45 ---- 20-24 Y ---- < 40 >45 ---- >24 Y ---- < 40 40-60 >60 Performed By: #### 2 4331-1 #### CECY WONG (86073) [facility] ([facility]) [address] [place] [address] 88044 Cholesterol in LDL [Mass/Vol] 42 mg/dL Normal <=99 [facility] Comment on above: Result Comment: Near Borderline AGE Desirable Optimal High High Very High 0-19 Y 0 - 109 --- 110-129 >/= 130 ---- 20-24 Y 0 - 119 --- 120-159 >/= 160 ---- >24 Y 0 - 99 100-129 130-159 160-189 >/=190 Performed By: #### 2 4331-1 #### CECY WONG (95471) [facility] ([facility]) [address] [place] [address] 01341 Cholesterol in VLDL [Mass/Vol] 21 mg/dL Normal 0-40 [facility] Comment on above: Performed By: #### 73642-1 #### CECY WONG ([id number]) [facility] ([facility]) [address] [place] [address] 68718 CHOLESTEROL/HDL RATIO 2.4 Normal [facility] Comment on above: Result Comment: Ref Values Desirable < 3.4 High Risk > 5.0 Performed By: #### 2 4331-1 #### CECY WONG ([id number]) [facility] ([facility]) [address] [place] [address] 83915 NON HDL CHOLESTEROL 63 mg/dL Normal 0-149 [facility] Comment on above: Result Comment: Age Desirable Borderline High High Very High 0-19 Y 0 - 119 120 - 144 >/= 145 >/= 160 20-24 Y 0 - 149 150 - 189 >/= 190 ---- >24 Y 30 mg/dL above LDL Cholesterol goal Performed By: #### 2 4331-1 #### CECY WONG (71071) [facility] ([facility]) [address] [place] [address] 08936 Triglyceride [Mass/Vol] 106 mg/dL Normal 0-149 [facility] Comment on above: Result Comment: Age Desirable Borderline High Very High SEX:B mg/dL mg/dL mg/dL mg/dL <=14D 86-277 ---- ---- ---- 15D-365D 55-277 ---- ---- ---- 1Y-9Y 0-74 75-99 >=100 ---- 10Y-19Y 0-89 90-129 >=130 ---- 20Y-24Y 0-114 115-149 >=150 ---- >= 25Y 0-149 150-199 200-499 >=500 Venipuncture immediately after or during the administration of Metamizole may lead to falsely low results. Testing should be performed immediately prior to Metamizole dosing. Performed By: #### 2 4331-1 #### CECY WONG ([id number]) [facility] ([facility]) [address] [place] [address] Prostate specific Agon 01-19 Prostate specific Ag [Mass/Vol] ng/mL Normal <=4.00 [facility] Comment on above: Order Comment: The FDA requires that the method used for PSA assay be reported to the physician. Values obtained with different assay methods must not be used interchangeably. This test was performed at [facility] using the e[employer]ames PSA assay is a two-site immunoenzymatic sandwich assay. The assay is approved for measurement of prostate-specific antigen (PSA)in serum and may be used in conjunction with a digital rectal examination in men 50 years and older as an aid in detection of prostate cancer. 9-Zunxt-popzoxcbe inhibitors (e.g. Proscar, Finasteride, Avodart, Dutasteride and Yessica) for the treatment of BPH have been shown to lower PSA levels by an average of 50% after 6 months of treatment. Performed By: #### 2 857-1 #### HOLDEN Larson ([id number]) [facility] ([facility]) [address] [place] [address] Comprehensive metabolic 2000 panelon 07-03-2023 Albumin BCP dye [Mass/Vol] 3.9 g/dL Normal 3.4-5.0 [facility] Comment on above: Performed By: #### 60902-3 #### CECY WONG ([id number]) [facility] ([facility]) [address] [place] [address] ALP [Catalytic activity/Vol] 62 U/L Normal 33-136 [facility] Comment on above: Performed By: #### 56328-8 #### CECY WONG ([id number]) [facility] ([facility]) [address] [place] [address] 90443 ALT With P-5'-P [Catalytic activity/Vol] 11 U/L Normal 10-52 [facility] Comment on above: Result Comment: Patients treated with Dotson lfasalazine may generate falsely decreased results for ALT. Performed By: #### 2 4323-8 #### CECY WONG ([id number]) [facility] ([facility]) [address] [place] [address]66 Anion gap [Moles/Vol] 12 mmol/L Normal 10-20 [facility] Comment on above: Performed By: #### 88136-4 #### CECY WONG ([id number]) [facility] ([facility]) [address] [place] [address] 61024 AST With P-5'-P [Catalytic activity/Vol] 13 U/L Normal 9-39 [facility] Comment on above: Performed By: #### 71933-2 #### CECY WONG ([id number]) [facility] ([facility]) [address] [place] [address] 27747 Bilirubin [Mass/Vol] 0.5 mg/dL Normal 0.0-1.2 [facility] Comment on above: Performed By: #### 94049-2 #### CECY WONG ([id number]) [facility] ([facility]) [address] [place] [address]804 Calcium [Mass/Vol] 9.6 mg/dL Normal 8.6-10.3 [facility] Comment on above: Performed By: #### 27930-1 #### CECY WONG ([id number]) [facility] ([facility]) [address] [place] [address]40 Chloride [Moles/Vol] 100 mmol/L Normal 98-107 [facility] Comment on above: Performed By: #### 99562-8 #### CECY WONG ([id number]) [facility] ([facility]) [address] [place] [address] 55000 CO2 [Moles/Vol] 29 mmol/L Normal 21-32 [facility] Comment on above: Performed By: #### 42334-1 #### CECY WONG ([id number]) [facility] ([facility]) [address] [place] [address] 93765 Creatinine [Mass/Vol] 1.59 mg/dL High 0.50-1.30 [facility] Comment on above: Performed By: #### 54933-2 #### CECY WONG ([id number]) [facility] ([facility]) [address] [place] [address] 14478 Glomerular filtration rate/1.73 sq M.predicted 43 mL/min/1.73m*2 Low >60 [facility] Comment on above: Result Comment: Calculations of estimate d GFR are performed using the 2020 CKD-EPI Study Refit equation without the race variable for the IDMS-Traceable creatinine methods. https://jasn.asnjournals.org/content//ASN.5348723152 Performed By: #### 2 4323-8 #### CECY WONG ([id number]) [facility] ([facility]) [address] [place] [address] 99638 Glucose [Mass/Vol] 142 mg/dL High 74-99 [facility] Comment on above: Performed By: #### 19088-7 #### CECY WONG ([id number]) [facility] ([facility]) [address] [place] [address] 02287 Potassium [Moles/Vol] 4.5 mmol/L Normal 3.5-5.3 [facility] Comment on above: Performed By: #### 12625-6 #### CECY WONG ([id number]) [facility] ([facility]) [address] [place] [address] 99830 Protein [Mass/Vol] 6.2 g/dL Low 6.4-8.2 [facility] Comment on above: Performed By: #### 51378-5 #### CECY WONG ([id number]) [facility] ([facility]) [address] [place] [address] 27263 Sodium [Moles/Vol] 136 mmol/L Normal 136-145 [facility] Comment on above: Performed By: #### 18346-3 #### CECY WONG ([id number]) [facility] ([facility]) [address] [place] [address] 91886 Urea nitrogen [Mass/Vol] 32 mg/dL High 6-23 [facility] Comment on above: Performed By: #### 26183-1 #### CECY WONG ([id number]) [facility] ([facility]) [address] [place] [address] 11807 HbA1c (Bld) [Mass fraction]o n 07-03-2023 Average glucose Estimated from glycated hemoglobin (Bld) [Mass/Vol] 134 mg/dL Normal Not Established [facility] Comment on above: Order Comment: Diagnosis of Diabetes-Silver [place] Non-Diabetic: < or = 5.6% Increased risk for developing diabetes: 5.7-6.4% Diagnostic of diabetes: > or = 6.5% Monitoring of Diabetes Age (y)....................... Therapeutic Goal (%) Adults: >18.........................<7.0 Pediatrics: 13-18...................<7.5 Pediatrics: 7-12....................<8.0 Pediatrics: 0-6..................... 7.5-8.5 [employer]. Diabetes Care 33(S1), Mar 2009 Performed By: #### 4 548-4 #### HOLDEN Larson ([id number]) [facility] ([facility]) [address] [place] [address] Hemoglobin A1c/Hemoglobin.to myles 07-03-2023 HbA1c (Bld) [Mass fraction] 6.3 % High see below [facility] Comment on above: Order Comment: Diagnosis of Diabetes-[place] l[place] Non-Diabetic: < or = 5.6% Increased risk for developing diabetes: 5.7-6.4% Diagnostic of diabetes: > or = 6.5% Monitoring of Diabetes Age (y)....................... Therapeutic Goal (%) Adults: >18.........................<7.0 Pediatrics: 13-18...................<7.5 Pediatrics: 7-12....................<8.0 Pediatrics: 0-6..................... 7.5-8.5 [employer]. 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) HTN (hypertension) (401.9) (I10) Medication management (V58.69) (Z79.899) Prostate cancer (185) (C61) Orders HTN (hypertension) Comprehensive Metabolic Panel; Status:Active; Requested for:[id number]; Medication management Follow-up visit in 5 Months Outpatient Follow-up Status: Hold For - Scheduling Requested for: [id number] 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 The memory seems to be worse. Gets confused easily. . Some issues with pulling up words. Names not as good. When flying he was disoriented for travel. Six Cit score was 4 and now 16. So has dementia. . At end of sequences he seems to fatigue and struggle more. Not driving as he has gotten lost. Has a bit of at rest tremor. Start on memantine 10 bid 02/17/22 He has noted that at first he noted nothing. Then noted less emotional on it. The confusion seems to be better. Will forget where he going and then self correct. No side effects. No Chest pain, Dyspnea, palpitations, numbness, weakness, edema, claudication, or double vision/ loss of vision. Did have some swelling when driving to [place] after a long drive without walks. Having some leaking urine that is better on the medication. 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, psychotic disturbance, mood disturbance, 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) Myopia of both eyes (367.1) (H52.13) Presbyopia of both eyes (367.4) (H52.4) Prostate cancer (185) (C61) Pseudophakia, both eyes (V43.1) (Z96.1) Pterygium of right eye (372.40) (H11.001) Regular astigmatism of both eyes (367.21) (H52.223) Past Medical History History of Age-related cataract of both eyes (366.10) (H25.9) Resolved Date: 08 Jul 2020 History of Body mass index (BMI) of 28.0 to 28.9 in adult (V85.24) (Z68.28) Resolved Date: 08 Jul 2020 History of Colon cancer screening (V76.51) (Z12.11) Resolved Date: 08 Jul 2020 History of Combined forms of age-related cataract of both eyes (366.19) (H25.813) Resolved Date: 08 Jul 2020 History of Dry eye syndrome of both eyes (375.15) (H04.123) Resolved Date: 08 Jul 2020 History of chest pain (V13.89) (Z87.898) Resolved Date: 08 Jul 2020 Surgical History History of Cataract surgery May in both eyes 2020 History of Cholecystectomy History of Colonoscopy History of Coronary artery stent placement History of Cystoscopy History of Esophagogastroduodenoscopy History of Hernia repair History of Renal angioplasty and stenting History of Shoulder surgery History of Vasectomy Social History Does not have living will Former smoker (V15.82) (Z87.891) No recent foreign travel Allergies NSAIDs Recorded By: Mallika Rose; 01/09/2019 12:20:24 PM Additional reactions - NS - Nephrotic syndrome Relafen Recorded By: Mallika Rose; 01/09/2019 12:20:24 PM Additional reactions - Nephrotic syndrome Current Meds Medication NameInstruction Artificial Tears 0.1-0.3 % Ophthalmic SolutionINSTILL 1 DROP Daily PRN Aspirin 81 MG Oral Tablet Delayed ReleaseTAKE 1 TABLET DAILY. Atorvastatin Calcium 40 MG Oral TabletTake 1 tablet daily Clopidogrel Bisulfate 75 MG Oral TabletTake 1 tablet daily Enalapril Maleate 10 MG Oral TabletTAKE 1 TABLET DAILY. hydroCHLOROthiazide 12.5 MG Oral CapsuleTAKE 1 CAPSULE Daily metFORMIN HCl ER 500 MG Oral Tablet Extended Release 24 HourTAKE 2 TABLET Daily Metoprolol Succinate ER 100 MG Oral Tablet Extended Release 24 HourTAKE 1 TABLET EVERY MORNING Vitals Vital Signs Recorded: [id number] 01:53PM Heart Rate68 Arkqdnek553, LUE Drvefoutj05, LUE Height5 ft 9 in Nuaobs187 lb BMI Cvjpduncvp64.96 kg/m2 BSA Calculated1.92 Tobacco Useb) No Falls Screening (Age 18+)b) One or more falls in the last year Physical Exam Physical Examination General: Alert and oriented, No acute distress. Eye: Not injected Respiratory: No respiratory distress. Symmetrical chest wall expans (more content not included)... Normal [facility] Tobacco Screening.on 022 Fall risk assessment b) One or more falls in the last year [facility] Work Phone: Tobacco use status 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) Hiatal hernia (553.3) (K44.9) HTN (hypertension) (401.9) (I10) Hypercholesterolemia (272.0) (E78.00) History of Diabetic neuropathy, 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,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) Prostate cancer (185) (C61) Low back pain (724.2) (M54.50) Pseudophakia, both eyes (V43.1) (Z96.1) Orders Coronary atherosclerosis of [place] coronary artery Renew: Clopidogrel Bisulfate 75 MG Oral Tablet; Take 1 tablet daily Hiatal hernia Stop: Omeprazole 20 MG Oral Capsule Delayed Release HTN (hypertension) Renew: Enalapril Maleate 10 MG Oral Tablet; TAKE 1 TABLET DAILY Renew: hydroCHLOROthiazide 12.5 MG Oral Capsule; TAKE 1 CAPSULE Daily Renew: Metoprolol Succinate ER 100 MG Oral Tablet Extended Release 24 Hour; TAKE 1 TABLET EVERY MORNING Hypercholesterolemia Renew: Atorvastatin Calcium 40 MG Oral Tablet; Take 1 tablet daily 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, psychotic disturbance, mood disturbance, or anxiety Start: Memantine HCl - 10 MG Oral Tablet; TAKE 1 TABLET TWICE DAILY Follow-up visit in 1 month Outpatient Follow-up Status: Hold For - Scheduling Requested for: 13Jan2022 PMH: Diabetic neuropathy, painful Changed: From metFORMIN HCl ER 500 MG Oral Tablet Extended Release 24 Hour TAKE 4 TABLET Daily To metFORMIN HCl ER 500 MG Oral Tablet Extended Release 24 Hour TAKE 2 TABLET Daily PMH: History of chest pain Stop: Nitroglycerin 0.4 MG Sublingual Tablet Sublingual Chief Complaint [facility] Adult Risk Screening Depression/Suicide Screening: During the past 2 weeks, the patient felt down, depressed or hopeless. During the past 2 weeks, the patient felt little interest or pleasure in doing things. PHQ-9 Depression Scale: 1. Little interest or pleasure in doing things - more than half the days 2. Feeling down, depressed or hopeless - more than half the days 3. Trouble falling asleep or sleeping too much - nearly every day 4. Feeling tired or having little energy - nearly every day 5. Poor appetite or overeating - nearly every day 6. Feeling bad about self or failure or letting others down - more than half the days 7. Trouble concentrating on things - several days 8. Moving / speaking slowly or fidgety / restless - several days 9. Thought would be better off or hurting self - several days Total Score: 18/27 Severity of depression is moderately severe. History of Present Illness Bilateral renal cysts - no blood or pain. GFR 85 BPH - cath every 3 night. Residual is small. Nocturia X 0-1 but not drinking a lot or eating a lot. Thin pads work well enough. CERVICAL SPONDYLOSIS WITHOUT MYELOPATHY - has been doing well CORONARY ATHEROSCLEROSIS - No Chest pain, Dyspnea, palpitations, numbness, weakness, edema, claudications, or double vision/ loss of vision. Works out less and does not need nitro in over a year. No treadmill or long walks for over a year. BP good. Diabetes mellitus, type II - has been on metformin at 4 per day. A1C had dropped from 8.2 to 6.9%. Less active and eating off more. Appetite is down a bit and weight was down another 14 pounds in 6 months. . Seems to going along with memory issues. No polyphagia, polydipsia, polyuria, or non-healing sores Hiatal hernia - No HB, Melena, dysphagia, or hematochezia. Can stop PPI. Eating is down with memory issues but no indigestion or early satiety. Weight loss has helped History of basal cell carcinoma excision - Dr Clement on September 30. No new lesions. Dermatology annually. Did cryo on a few spots Hypercholesterolemia Med works well without side effects last time. Kidney stone - no pain or blood. Low back pain - still but not too bad with limited activity. Work outside with lawn and gardens has been good. Memory loss - MRI showed some microvascular disease. The memory seems to be worse. Gets comfused easily. . Some issues with pulling up words. Names not as good. When flying he was disoriented for travel. Six Cit score wass 4 and now 16. So has dementia. . At end of sequences he seems to fatigue and struggle more. Not driving as he has gotten lost. Has a bit of at rest tremor. Painful diabetic neuropathy - The discoloration has improved. No soreness or pain Better now. No longer sensitive to touch tips of toes. Diabetic socks. Prostate cancer - Robotic adhesion removal after radiation. Annual checkups. That was over 10 years ago. PSA not detectable this time. Off the oxybutynin. Pseudophakia successful in both eyes Cologuard 07/25/19 PSA 12/28/20 Active Problems Benign prostatic hype (more content not included)... Normal [facility] COMPREHENSIVE PANELon 2021 Albumin [Mass/Vol] 4.2 g/dL Normal 3.4 - 5.0 [facility] Comment on above: Performed By: #### CMP #### [address] [address] ALP [Catalytic activity/Vol] 53 U/L Normal 33 - 136 [facility] Comment on above: Performed By: #### CMP #### [address] [address] ALT [Catalytic activity/Vol] 12 U/L Normal 10 - 52 [facility] Comment on above: Result Comment: Patients treated with Dotson lfasalazine may generate falsely decreased results for ALT. Performed By: #### C MP #### [address] [address] Anion gap [Moles/Vol] 13 mmol/L Normal 10 - 20 [facility] Comment on above: Performed By: #### CMP #### [address] [address] AST [Catalytic activity/Vol] 14 U/L Normal 9 - 39 [facility] Comment on above: Performed By: #### CMP #### [address] [address] Bilirubin [Mass/Vol] 0.8 mg/dL Normal 0.0 - 1.2 [facility] Comment on above: Performed By: #### CMP #### [address] [address] Calcium [Mass/Vol] 9.5 mg/dL Normal 8.6 - 10.3 [facility] Comment on above: Performed By: #### CMP #### [address] [address] Chloride [Moles/Vol] 98 mmol/L Normal 98 - 107 [facility] Comment on above: Performed By: #### CMP #### [address] [address] Creatinine [Mass/Vol] 0.91 mg/dL Normal 0.50 - 1.30 [facility] Comment on above: Performed By: #### CMP #### [address] [address] GFR/1.73 sq M.predicted among non-blacks MDRD (S/P/Bld) [Vol rate/Area] 85 mL/min/{1.73_m2} Normal >90 [facility] Comment on above: Result Comment: CALCULATIONS OF ESTIMATE D GFR ARE PERFORMED USING THE 2020 CKD-EPI STUDY REFIT EQUATION WITHOUT THE RACE VARIABLE FOR THE IDMS-TRACEABLE CREATININE METHODS. https://jasn.asnjournals.org/content//ASN.1090625494 Performed By: #### C MP #### [address] [address] Glucose [Mass/Vol] 135 mg/dL High 74 - 99 [facility] Comment on above: Performed By: #### CMP #### [address] [address] HCO3 (Bld) [Moles/Vol] 29 mmol/L Normal 21 - 32 [facility] Comment on above: Performed By: #### CMP #### [address] [address] Potassium [Moles/Vol] 4.5 mmol/L Normal 3.5 - 5.3 [facility] Comment on above: Performed By: #### CMP #### [address] [address] Protein [Mass/Vol] 6.8 g/dL Normal 6.4 - 8.2 [facility] Comment on above: Performed By: #### CMP #### [address] [address] Sodium [Moles/Vol] 135 mmol/L Low 136 - 145 [facility] Comment on above: Performed By: #### CMP #### [address] [address] Urea nitrogen [Mass/Vol] 23 mg/dL Normal 6 - 23 [facility] Comment on above: Performed By: #### CMP #### [address] [address] HEMOGLOBIN A1Con 01-10-2022 Glucose [Mass/Vol] 151 mg/dL Normal [facility] Comment on above: Performed By: #### HBA1E #### [address] [address] HbA1c (Bld) [Mass fraction] 6.9 % Abnormal [facility] Comment on above: Result Comment: Diagnosis of Diabetes-Ad ults Non-Diabetic: < or = 5.6% Increased risk for developing diabetes: 5.7-6.4% Diagnostic of diabetes: > or = 6.5% . Monitoring of Diabetes Age (y) Therapeutic Goal (%) Adults: >18 <7.0 Pediatrics: 13-18 <7.5 7-12 <8.0 0- 6 7.5-8.5 [employer]. Diabetes Care 33(S1), Mar 2009. Performed By: #### H BA1E #### [address] [address] LIPID PANEL (CORONARY RISK 2 )on 01-10-2022 Cholesterol [Mass/Vol] 105 mg/dL Normal 0 - 199 [facility] Comment on above: Result Comment: . AGE DESIRABLE BORDERLINE HIGH HIGH 0-19 Y 0 - 169 170 - 199 >/= 200 20-24 Y 0 - 189 190 - 224 >/= 225 >24 Y 0 - 199 200 - 239 >/= 240 All ranges are based on fasting samples. Specific therapeutic targets will vary based on patient-specific cardiac risk. . Pediatric guidelines reference:Pediatrics 2011, 128(S5). Adult guidelines reference: NCEP ATPIII Guidelines, VIRGILIO 2001, 258:2486-97 . Venipuncture immediately after or during the administration of Metamizole may lead to falsely low results. Testing should be performed immediately prior to Metamizole dosing. Performed By: #### L IPID #### [address] [address] Cholesterol in HDL [Mass/Vol] 40.0 mg/dL Normal [facility] Comment on above: Result Comment: . AGE VERY LOW LOW NORMAL HIGH 0-19 Y < 35 < 40 40-45 ---- 20-24 Y ---- < 40 >45 ---- >24 Y ---- < 40 40-60 >60 . Performed By: #### L IPID #### [address] [address] Cholesterol in LDL [Mass/Vol] 41 mg/dL Normal 0 - 99 [facility] Comment on above: Result Comment: . NEAR BORD AGE DESIRABLE OPTIMAL HIGH HIGH VERY HIGH 0-19 Y 0 - 109 --- 110-129 >/= 130 ---- 20-24 Y 0 - 119 --- 120-159 >/= 160 ---- >24 Y 0 - 99 100-129 130-159 160-189 >/=190 . Performed By: #### L IPID #### [address] [address] Cholesterol in VLDL [Mass/Vol] 24 mg/dL Normal 0 - 40 [facility] Comment on above: Performed By: #### LIPID #### [address] [address] Cholesterol.tot al/Cholesterol in HDL [Mass ratio] 2.6 {ratio} Normal [facility] Comment on above: Result Comment: REF VALUES DESIRABLE < 3.4 HIGH RISK > 5.0 Performed By: #### L IPID #### [address] [address] Triglyceride [Mass/Vol] 121 mg/dL Normal 0 - 149 [facility] Comment on above: Result Comment: . AGE DESIRABLE BORDERLINE HIGH HIGH VERY HIGH 0 D-90 D 19 - 174 ---- ---- ---- 91 D- 9 Y 0 - 74 75 - 99 >/= 100 ---- 10-19 Y 0 - 89 90 - 129 >/= 130 ---- 20-24 Y 0 - 114 115 - 149 >/= 150 ---- >24 Y 0 - 149 150 - 199 200- 499 >/= 500 . Venipuncture immediately after or during the administration of Metamizole may lead to falsely low results. Testing should be performed immediately prior to Metamizole dosing. Performed By: #### L IPID #### [address] [address] PROSTATE SPECIFIC AGon 01-10 Prostate specific Ag [Mass/Vol] ng/mL Critically low 0.00 - 4.00 [facility] Comment on above: Result Comment: The FDA requires that th e method used for PSA assay be reported to the physician. Values obtained with different assay methods must not be used interchangeably. This test was performed at [facility] using the [employer] PSA assay is a two-site immunoenzymatic sandwich assay. The assay is approved for measurement of prostate-specific antigen (PSA)in serum and may be used in conjunction with a digital rectal examination in men 50 years and older as an aid in detection of prostate cancer. 2-Rvnzz-vjtfcjuiy inhibitors (e.g. Proscar, Finasteride, Avodart, Dutasteride and Yessica) for the treatment of BPH have been shown to lower PSA levels by an average of 50% after 6 months of treatment. Performed By: #### P SA #### [place] [id number] TSH WITH REFLEX TO FREE T4 I F ABNORMALon 01-10-2022 TSH Qn 1.29 m[IU]/L Normal 0.44 - 3.98 [facility], [place], operated by [facility] Comment on above: Result Comment: TSH testing is performed using different testing methodology at [facility] than at other [facility]. Direct result comparisons should only be made within the same method. Performed By: #### T HYDS #### [address] [address] 12 Lead EKGon 12-06-2021 12 Lead EKG [facility] Cardi[facility] Services [address] [place] [id number] 12 Lead EKG 12/06/21 0416 MR#: [id number] Acct: [id number] Name: ALL YOUNG III Rep #: [id number] : [id number] From: Yifan Chery MD Attending Dr: Status: DEP ER Ordering Dr: Josiane Harden DO Date: 12/06/21 Location: ED Sex: M C Admitted: Test Reason : CP Blood Pressure : / mmHG Vent. Rate : 072 BPM Atrial Rate : 072 BPM P-R Int : 218 ms QRS Dur : 084 ms QT Int : 376 ms P-R-T Axes : 105 -07 038 degrees QTc Int : 411 ms Sinus rhythm with 1st degree A-V block Otherwise normal ECG Confirmed by YIFAN CHERY MD ([id number]), director counseling bureau [facility] HOWELL ([id number]) on 12/09/2021 12:35:40 PM Referred By: KT Confirmed By:YIFAN CHERY MD 12/09/21 1235 Date Yifan Chery MD CC: Dr. Jake Duque MD; Josiane Harden DO Signed Normal [facility] Absolute lymphocyte counton 12-06-2021 Lymphocytes Auto (Unsp spec) [#/Vol] 2.47 10*3/uL 0.83-4.51 [facility] Work Phone: Basic Metabolic Profile (BMP )on 12-06-2021 BUN/CRE 21.6 RATIO High 10-20 [facility] Comment on above: Order Comment: 'TROP' Serial specimen #1 , #2 or #3: 1 Performed By: #### L 100.0100, L500.2500, L501.4020, L501.5200 #### [facility] [address] [place], [place], [id number] CA,Total 9.3 mg/dL Normal 8.5-10.1 [facility] Comment on above: Order Comment: 'TROP' Serial specimen #1 , #2 or #3: 1 Performed By: #### L 100.0100, L500.2500, L501.4020, L501.5200 #### [facility] [address] [place], [address] Chloride [Moles/Vol] 101 mmol/L Normal 98-107 [facility] Comment on above: Order Comment: 'TROP' Serial specimen #1 , #2 or #3: 1 Performed By: #### L 100.0100, L500.2500, L501.4020, L501.5200 #### [facility] [address] [place], [address] CO2 [Moles/Vol] 30.0 mmol/L Normal 21.0-32.0 [facility] Comment on above: Order Comment: 'TROP' Serial specimen #1 , #2 or #3: 1 Performed By: #### L 100.0100, L500.2500, L501.4020, L501.5200 #### [facility] [address] [place], [address] Creatinine [Mass/Vol] 1.11 mg/dL Normal 0.70-1.30 [facility] Comment on above: Order Comment: 'TROP' Serial specimen #1 , #2 or #3: 1 Result Comment: The validity of the calculated GFR GFRAA in patients over 70 years has not been determined. Clinical correlation is essential. Performed By: #### L 100.0100, L500.2500, L501.4020, L501.5200 #### [facility] [address] [place], [address] ECRCL 55.72 ml/min Normal [facility] Comment on above: Order Comment: 'TROP' Serial specimen #1 , #2 or #3: 1 Performed By: #### L 100.0100, L500.2500, L501.4020, L501.5200 #### [facility] [address] [place], [address] EST GFR - AA 82 mL/min Normal >60 [facility] Comment on above: Order Comment: 'TROP' Serial specimen #1 , #2 or #3: 1 Result Comment: Afri can [place] GFR Calc Performed By: #### L 100.0100, L500.2500, L501.4020, L501.5200 #### [facility] [address] [place], [address] GAP 7 Normal 5-15 [facility] Comment on above: Order Comment: 'TROP' Serial specimen #1 , #2 or #3: 1 Performed By: #### L 100.0100, L500.2500, L501.4020, L501.5200 #### [facility] [address] [place], [address] GFR/1.73 sq M.predicted among non-blacks MDRD (S/P/Bld) [Vol rate/Area] 68 mL/min/{1.73_m2} Normal >60 [facility] Comment on above: Order Comment: 'TROP' Serial specimen #1 , #2 or #3: 1 Result Comment: Non- GFR Calc Performed By: #### L 100.0100, L500.2500, L501.4020, L501.5200 #### [facility] [address] [place], [address] Glucose [Mass/Vol] 128 mg/dL High 74-106 [facility] Comment on above: Order Comment: 'TROP' Serial specimen #1 , #2 or #3: 1 Result Comment: Fast ing Glucose result greater than or equal to 126 mg/dL suggests DIABETES MELLITUS per A.D.A. criteria. Performed By: #### L 100.0100, L500.2500, L501.4020, L501.5200 #### [facility] [address] [place], [address] Potassium [Moles/Vol] 3.8 mmol/L Normal 3.5-5.1 [facility] Comment on above: Order Comment: 'TROP' Serial specimen #1 , #2 or #3: 1 Performed By: #### L 100.0100, L500.2500, L501.4020, L501.5200 #### [facility] [address] [place], [address] Sodium [Moles/Vol] 138 mmol/L Normal 136-145 [facility] Comment on above: Order Comment: 'TROP' Serial specimen #1 , #2 or #3: 1 Performed By: #### L 100.0100, L500.2500, L501.4020, L501.5200 #### [facility] [address] [place], [address] Urea nitrogen [Mass/Vol] 24 mg/dL High 7-18 [facility] Comment on above: Order Comment: 'TROP' Serial specimen #1 , #2 or #3: 1 Performed By: #### L 100.0100, L500.2500, L501.4020, L501.5200 #### [facility] [address] [place], [address] Basophil percentageon 12-06- 2021 Basophils/100 WBC (Bld) 0.5 % 0-1 [facility] Work Phone: Chloride [Moles/Vol] 101 mmol/L 98-107 [facility] Work Phone: [phone] Eosinophils/100 WBC (Bld) 2.4 % 0-5 [facility] Work Phone: [phone] Glucose [Mass/Vol] 128 mg/dL 74-106 [facility] Work Phone: Comment on above: Fasting Glucose result greater than or e qual to 126 mg/dL suggests DIABETES MELLITUS per A.D.A. criteria. Neutrophils (Bld) [#/Vol] 3.8 10*3/uL 2.0-7.7 [facility] Work Phone: [phone] Neutrophils/100 WBC (Bld) 51.5 % 47-70 [facility] Work Phone: Potassium [Moles/Vol] 3.8 mmol/L 3.5-5.1 [facility] Work Phone: Sodium [Moles/Vol] 138 mmol/L 136-145 [facility] Work Phone: WBC (Bld) [#/Vol] 7.4 10*3/uL 4.4-11.0 [facility] Work Phone: Blood erythrocytes count (nu mber/volume)on 12-06-2021 RBC (Bld) [#/Vol] 5.30 10*6/uL 4.6-6.2 [facility] Work Phone: Blood hemoglobin measurement (mass/volume)on 12-06-2021 Hemoglobin (Bld) [Mass/Vol] 15.9 g/dL 13.0-16.5 [facility] Work Phone: Blood lymphocytes/100 leukoc yteson 12-06-2021 Lymphocytes/100 WBC (Bld) 33.3 % 19-41 [facility] Work Phone: Blood monocytes/100 leukocyt eson 12-06-2021 Monocytes/100 WBC (Bld) 12.0 % 0-10 [facility] Work Phone: Blood platelet mean volumeon 12-06-2021 Platelet mean volume (Bld) [Entitic vol] 9.6 fL 6.2-12.0 [facility] Work Phone: CBC W/Diff, Automatedon 10-0 Absolute Lymph 2.47 X10 3/uL Normal 0.83-4.51 [facility] Comment on above: Performed By: #### L100.0100, L500.2500, L501.4020, L501.5200 #### [facility] [address] [place], [address] Absolute Neut 3.8 X10 3/uL Normal 2.0-7.7 [facility] Comment on above: Performed By: #### L100.0100, L500.2500, L501.4020, L501.5200 #### [facility] [address] [place], [address] Basophils/100 WBC (Bld) 0.5 % Normal 0-1 [facility] Comment on above: Performed By: #### L100.0100, L500.2500, L501.4020, L501.5200 #### [facility] [address] [place], [address] Eosinophils/100 WBC (Bld) 2.4 % Normal 0-5 [facility] Comment on above: Performed By: #### L100.0100, L500.2500, L501.4020, L501.5200 #### [facility] [address] [place], [address] Erythrocyte distribution width (RBC) [Ratio] 13.1 % Normal 11.6-14.6 [facility] Comment on above: Performed By: #### L100.0100, L500.2500, L501.4020, L501.5200 #### [facility] [address] [place], [address] Hematocrit (Bld) [Volume fraction] 47.3 % Normal 40-54 [facility] Comment on above: Performed By: #### L100.0100, L500.2500, L501.4020, L501.5200 #### [facility] [address] [place], [address] Hemoglobin (Bld) [Mass/Vol] 15.9 g/dL Normal 13.0-16.5 [facility] Comment on above: Performed By: #### L100.0100, L500.2500, L501.4020, L501.5200 #### [facility] [address] [place], [address] IG% 0.300 Normal 0.0-0.9 [facility] Comment on above: Result Comment: IG% - Immature Granulocy ciera (promyelocytes, myelocytes and metamyelocytes) > 1% indicates that a LEFT SHIFT is Present. Performed By: #### L 100.0100, L500.2500, L501.4020, L501.5200 #### [facility] [address] [place], [address] Lymphocytes/100 WBC (Bld) 33.3 % Normal 19-41 [facility] Comment on above: Performed By: #### L100.0100, L500.2500, L501.4020, L501.5200 #### [facility] [address] [place], [address] MCH (RBC) [Entitic mass] 30.0 pg Normal 27.0-32.0 [facility] Comment on above: Performed By: #### L100.0100, L500.2500, L501.4020, L501.5200 #### [facility] [address] [place], [address] MCHC (RBC) [Mass/Vol] 33.6 g/dL Normal 32-36 [facility] Comment on above: Performed By: #### L100.0100, L500.2500, L501.4020, L501.5200 #### [facility] [address] [place], [address] MCV (RBC) [Entitic vol] 89.2 fL Normal 80-94 [facility] Comment on above: Performed By: #### L100.0100, L500.2500, L501.4020, L501.5200 #### [facility] [address] [place], [address] Monocytes/100 WBC (Bld) 12.0 % High 0-10 [facility] Comment on above: Performed By: #### L100.0100, L500.2500, L501.4020, L501.5200 #### [facility] [address] [place], [address] Neutrophils/100 WBC (Bld) 51.5 % Normal 47-70 [facility] Comment on above: Performed By: #### L100.0100, L500.2500, L501.4020, L501.5200 #### [facility] [address] [place], [address] Nucleated RBC (Bld) [#/Vol] 0 10*3/uL Normal 0-5 [facility] Comment on above: Performed By: #### L100.0100, L500.2500, L501.4020, L501.5200 #### [facility] [address] [place], [address] Platelet mean volume (Bld) [Entitic vol] 9.6 fL Normal 6.2-12.0 [facility] Comment on above: Performed By: #### L100.0100, L500.2500, L501.4020, L501.5200 #### [facility] [address] [place], [address] Platelets (Bld) [#/Vol] 198 10*3/uL Normal 150-450 [facility] Comment on above: Performed By: #### L100.0100, L500.2500, L501.4020, L501.5200 #### [facility] [address] [place], [address] RBC (Bld) [#/Vol] 5.30 10*6/uL Normal 4.6-6.2 [facility] Comment on above: Performed By: #### L100.0100, L500.2500, L501.4020, L501.5200 #### [facility] [address] [place], [address] RDW SD 42.6 fl Normal 35.1-43.9 [facility] Comment on above: Performed By: #### L100.0100, L500.2500, L501.4020, L501.5200 #### [facility] [address] [place], [address] WBC (Bld) [#/Vol] 7.4 10*3/uL Normal 4.4-11.0 [facility] Comment on above: Performed By: #### L100.0100, L500.2500, L501.4020, L501.5200 #### [facility] [address] [place], [address] Chest PA and Lateralon 12-06 Chest PA and Lateral [facility] [address] [place] [address] Chest PA and Lateral MR#: [id number] Acct: [id number] Name: ALL YOUNG III Rep #: [id number] : 1940 M 81 From: Diego simental MD PCP: Dr. Jake Duque MD Status: PRE ER Study: Chest PA and Lateral Date of Exam: 12/06/21 Exam# [id number] Ordering Dr: Josiane Harden DO EXAM: XR CHEST, 2 VIEWS CLINICAL INDICATION: chest pain TECHNIQUE: Frontal and lateral views of the chest. This report was created using [employer] report generation technology. COMPARISON: None. FINDINGS: LUNGS AND PLEURAL SPACES: Unremarkable. No consolidation or edema. No pneumothorax. No effusion. HEART: Unremarkable. Cardiac silhouette not enlarged. No pulmonary venous hypertension. MEDIASTINUM: Mild-moderate elongation of the thoracic aorta. No hilar enlargement. BONES/JOINTS: Mild thoracic dextroscoliosis. Cholecystectomy clips. Mild thoracic degenerative spurring. No acute osseous abnormality. SOFT TISSUES: Unremarkable. RAD/Chest PA and Lateral IMPRESSION: No radiographic evidence of acute cardiopulmonary disease. Electronically Signed: Diego Lopez MD at 5:20 EDT , CC: Dr. Jake Duque MD; Josiane Harden DO [employer]: Signed Normal [facility] Determination of erythrocyte mean corpuscular volume (MCV)on 12-06-2021 MCV (RBC) [Entitic vol] 89.2 fL 80-94 [facility] Work Phone: Emergency Department Summary on 12-06-2021 Emergency Department Summary [facility] Medical Records Department [address] [place] [address] Emergency Department Summary 12/06/21 MR#: [id number] Acct: [id number] Name: ALL YOUNG III Rep #: [id number] : 1940 [id number] From: Josiane Harden DO PCP: Dr. Jake Duque MD Status:DEP ER Location: ED HPI History of Present Illness Chief Complaint: Chest Pain Narrative Narrative: Patient is a 81-year-old male with past medical history of hypertension type 2 diabetes and hyperlipidemia. He states that he has had a mild cough for the past 3 to 4 days and now is noticed some left-sided chest pain especially after coughing. He states because of his medical issues he is concerned that this chest pain could be cardiac or even a lung infection because of the cough and therefore comes in for evaluation. He denies any recent surgery travel history of DVT/PE. PFSH PFS Home Medications aspirin 325 mg tablet 325 mg PO DAILY 04/28/16 [History Last Taken 09/07/16] atorvastatin 40 mg tablet 40 mg PO QHS 04/28/16 [History Last Taken Unknown] enalapril maleate 10 mg tablet (Vasotec) 10 mg PO DAILY 04/28/16 [History Last Taken 09/18/16] glucosamine 750 [id number] no1 644 mg-C 30 mg-jailyn 1 mg tablet (Osteo Bi-Flex Triple Strength) 1 ea PO DAILY 04/28/16 [History Last Taken Unknown] hydrochlorothiazide 12.5 mg capsule 12.5 mg PO DAILY 04/28/16 [History Last Taken Unknown] metformin 500 mg tablet 500 mg PO DAILY 04/28/16 [History Last Taken Unknown] metoprolol succinate 100 mg tablet,extended release 24 hr (Toprol XL) 100 mg PO DAILY 04/28/16 [History Last Taken Unknown] multivitamin with folic acid 400 mcg tablet (Thera) 1 tab PO DAILY 04/28/16 [History Last Taken Unknown] nitroglycerin 0.4 mg sublingual tablet 0.4 mg sublingual PRN PRN Angina 04/28/16 [History Last Taken Unknown] sucralfate 1 gram tablet 1 g PO QHS 04/28/16 [History Last Taken Unknown] clopidogrel 75 mg tablet 75 mg PO DAILY 09/10/16 [History Last Taken 09/07/16] metoprolol succinate 50 mg tablet,extended release 24 hr (Toprol XL) 50 mg PO DINNER 09/10/16 [History Last Taken 09/18/16] omeprazole 20 mg capsule,delayed release 20 mg PO DINNER 09/10/16 [History Last Taken Unknown] solifenacin 10 mg tablet (Vesicare) 10 mg PO DAILY 09/10/16 [History Last Taken Unknown] methocarbamol 500 mg tablet 500 mg PO 4X/DAY PRN PRN Muscle pain/spasm #40 tabs 12/06/21 [Rx Last Taken Unknown] Allergy/AdvReac Type Severity Reaction Status Date / Time nabumetone [From Relafen] AdvReac Other Verified 09/10/16 15:11 Surgical History (Updated 12/06/21 @ 04:14 by Aruna Watkins) History of heart artery stent Social History Smoking Status: Former smoker ROS ROS ED Constitutional Constitutional ED: Denies chills or fever(s) ENT ENT ED: Denies sore throat Cardiovascular Cardiovascular: Reports chest pain; Denies palpitations or racing heartbeat Respiratory/Chest Respiratory/Chest: Reports cough; Denies dyspnea Gastrointestinal Gastrointestinal: Denies abdominal pain, diarrhea, nausea or vomiting Genitourinary Genitourinary ED: Denies dysuria Musculoskeletal Musculoskeletal: Denies myalgias Integumentary Denies rash Neurologic Neurologic: Denies headache(s) Hematologic/Lymphatic Hematologic/Lymphatic: Reports easy bleeding and easy bruising EXAM Physical Exam Const Vital Signs: 12/06/21 04:09 12/06/21 04:12 12/06/21 05:09 Temperature 96.5 F L Temperature Source Temporal Pulse Rate 73 66 Respiratory Rate 17 16 Respiratory Effort Normal Respiratory Pattern Normal Blood Pressure 151/91 H 157/72 H Blood Pressure Mean 111 100 Pulse Ox 99 95 Oxygen Delivery Method Room Air Room Air 12/06/21 06:09 Temperature 98 F Temperature Source Pulse Rate 61 Respiratory Rate 17 Respiratory Effort Respiratory Pattern Blood Pressure 141/82 H Blood Pressure Mean Pulse Ox 96 Oxygen Delivery Method Positive well nourished and well developed General Appearance ED: well developed HEENT Reports moist mucous membranes HEENT Narrative: No tongue or lip swelling no oral lesions no airway edema or compromise Eyes PERRL and EOMs intact bilaterally Neck supple and no JVD Chest Wall Chest Narrative: Patient has reproducible left anterior chest wall pain in the intercostal regions of ribs 4-6 that he states is the same pain he has been experiencing. There is no bony deformity or crepitance or overlying soft tissue changes Resp normal respiratory effort and clear to auscultation bilaterally Resp Narrative: Breath sounds are diminished throughout but overall clear to auscultation with no signs of distress Cardio regular rate and regular rhythm Rate: other Other Details: Radial pulses are plus 2 out of 4 bilaterally are equal and symmetric GI normal to (more content not included)... Normal [facility] Hematocrit Auto (Bld) [Volum e fraction]on 12-06-2021 Hematocrit (Bld) [Volume fraction] 47.3 % 40-54 [facility] Work Phone: [phone] 12-06-2021 TROPONIN-I HS 6 pg/mL Normal 3.0-78.0 [facility] Comment on above: Order Comment: 'TROP' Serial specimen #1 , #2 or #3: 1 Result Comment: Plea se Note: New Test Units and Gender Specific Reference Ranges. For more information see Policy Stat Procedure [place] High Sensitivity Troponin (TNIH) and attachments. Performed By: #### L 100.0100, L500.2500, L501.4020, L501.5200 #### [facility] [address] [place], [place], [id number] Laboratory - Chemistry and C hemistry - challengeon 12-06-2021 CO2 [Moles/Vol] 30.0 mmol/L 21.0-32.0 [facility] Work Phone: Magnesium [Mass/Vol] 1.4 mg/dL 1.6-2.6 [facility] Work Phone: Urea nitrogen/Creati nine [Mass ratio] 21.6 mg/mg 10-20 [facility] Work Phone: Laboratory - Hematology and Cell countson 12-06-2021 Erythrocyte distribution width (RBC) [Entitic vol] 42.6 fL 35.1-43.9 [facility] Work Phone: Erythrocyte distribution width (RBC) [Ratio] 13.1 % 11.6-14.6 [facility] Work Phone: Immature granulocytes/10 0 WBC (Bld) 0.300 % 0.0-0.9 [facility] Work Phone: Comment on above: IG% - Immature Granulocytes (promyelocyt es, myelocytes and metamyelocytes) > 1% indicates that a LEFT SHIFT is Present. MCH (RBC) [Entitic mass] 30.0 pg 27.0-32.0 [facility] Work Phone: Nucleated RBC/100 WBC (Bld) [Ratio] 0 % 0-5 [facility] Work Phone: MCHC Auto (RBC) [Mass/Vol]on 12-06-2021 MCHC (RBC) [Mass/Vol] 33.6 g/dL 32-36 [facility] Work Phone: Magnesiumon 12-06-2021 Magnesium [Mass/Vol] 1.4 mg/dL Low 1.6-2.6 [facility] Comment on above: Order Comment: 'TROP' Serial specimen #1 , #2 or #3: 1 Performed By: #### L 100.0100, L500.2500, L501.4020, L501.5200 #### [facility] [address] [place], [place], [id number] No Panel Informationon 12-06 Estimated Creatinine Clearance Calc 55.72 ml/min [facility] Work Phone: Estimated GFR (MDRD) Amer 82 mL/min >60 [facility] Work Phone: Comment on above: GFR Calc Estimated GFR (MDRD) Non-Af Amer 68 mL/min >60 [facility] Work Phone: Comment on above: Non- GFR Calc Troponin I High Sensitivity 6 pg/mL 3.0-78.0 [facility] Work Phone: Comment on above: Please Note: New Test Units and Gender S pecific Reference Ranges. For more information see Policy Stat Procedure [place] High Sensitivity Troponin (TNIH) and attachments. Platelets bldon 12-06-2021 Platelets (Bld) [#/Vol] 198 10*3/uL 150-450 [facility] Work Phone: Serum or plasma calcium lisa urement (mass/volume)on 12-06-2021 Calcium [Mass/Vol] 9.3 mg/dL 8.5-10.1 [facility] Work Phone: Serum or plasma creatinine m easurement (mass/volume)on 12-06-2021 Creatinine [Mass/Vol] 1.11 mg/dL 0.70-1.30 [facility] Work Phone: Comment on above: The validity of the calculated GFR & GFR AA in patients over 70 years has not been determined. Clinical correlation is essential. 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) (N40.1,N13.8) Bilateral renal cysts (753.10) (N28.1) Cervical spondylolysis (756.19) (M43.02) Diabetic neuropathy, 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,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) Coronary atherosclerosis of [place] coronary artery (414.01) (I25.10) Prostate cancer (185) (C61) Hiatal hernia (553.3) (K44.9) HTN (hypertension) (401.9) (I10) Hypercholesterolemia (272.0) (E78.00) Mild cognitive impairment (331.83) (G31.84) Pseudophakia, both eyes (V43.1) (Z96.1) Low back pain (724.2) (M54.50) Medication management (V58.69) (Z79.899) Orders Diabetic neuropathy, painful Hemoglobin A1C; Status:Active; Requested for:11Jan2022; HTN (hypertension) Comprehensive Metabolic Panel; Status:Active; Requested for:11Jan2022; Hypercholesterolemia Lipid Panel; Status:Active; Requested for:11Jan2022; Medication management Follow-up visit in 6 months Outpatient Follow-up Status: Hold For - Scheduling Requested for: 11Jul2021 Mild cognitive impairment TSH WITH REFLEX TO FREE T4 IF ABNORMAL; Status:Active; Requested for:11Jan2022; Prostate cancer Prostate Specific Antigen; Status:Active; Requested for:11Jan2022; Chief Complaint medck History of Present IllnessBilateral renal cysts - no blood or pain. GFR 70. BPH - cath every 2-3 night. Residual is small. Nocturia X 0-1 but not drinking a lot or eating a lot. Thin pads work well enough. CERVICAL SPONDYLOSIS WITHOUT MYELOPATHY - has been doing well CORONARY ATHEROSCLEROSIS - No Chest pain, Dyspnea, palpitations, numbness, weakness, edema, claudications, or double vision/ loss of vision. Works out less and does not need nitro in over a year. No treadmill or long walks for over a year. Idropped BP med some last time and now BP is a little high so will monitor. Diabetes mellitus, type II - has been on metformin at 4 per day. A1C had dropped from 8.2 to 7.1. Less active and eating off more. Appetite is down a bit and weight was down 23 pounds in 2 years and now up 5. Seems to going along with memory issues. No polyphagia, polydipsia, polyuria, or non-healing sores Hiatal hernia - No HB, Melena, dysphagia, or hematochezia. On PPI only Eating is down with memory issues but no indigestion or early satiety. History of basal cell carcinoma excision - Dr Clement on September 30. No new lesions. Dermatology annually. Did cryo on a few spots Hypercholesterolemia Med works well without side effects last time. Kidney stone - no pain or blood. Low back pain - still but not too bad with limited activity. Work outside with lawn and gardens has been good. Memory loss - MRI showed some microvascular disease. The memory seems to be about the same. Some issues with pulling up words. Names not as good. 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 When flying he was disoriented for travel. [place] score 4. At end of sequences he seems to fatigue and struggle more. Not driving as he has gotten lost. Not ready to try meds yet . Painful diabetic neuropathy - The discoloration has improved. No soreness or pain Better now. No longer sensitive to touch tips of toes. Diabetic socks. Prostate cancer - Robotic adhesion removal after radiation. Annual checkups. That was over 10 years ago. PSA not detectable last time. Cutting back on the oxybutynin. Pseudophakia successful in both eyes Cologuard 07/25/19 PSA 12/28/20 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,N13.8) Bilateral renal cysts (753.10) (N28.1) Cervical spondylolysis (756.19) (M43.02) Coronary atherosclerosis of [place] coronary artery (414.01) (I25.10) Diabetic neuropathy, 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,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) Hiatal hernia (553.3) (K44.9) HTN (hypertension) (401.9) (I10) Hypercholesterolemia (272.0) (E78.00) Low back pain (724.2) (M54.50) Medication management (V58.69) (Z79.899) Mild cognitive impairment (331.83) (G31.84) Myopia of both eyes (367.1) (H52.13) Presbyopia of both eyes (367.4) (H52.4) Prostate cancer (185) (C61) Pseudophakia, both eyes (V43.1) (Z96.1) Pterygium of right eye (372.40) (H11.001) Regular astigmatism of both eyes (367.21) (H52.223) Urge incontinence of urine (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.31) (N39.41) Past Medical History History of Age-related cataract of both eyes (366.10) (H25.9) Resolved Date: 08 Jul 2020 History of Body mass index (BMI) of 28.0 to 28.9 in adult (V85.24) (Z68.28) Resolved Date: 08 Jul 2020 History of Colon cancer screening (V76.51) (Z12.11) Resolved Date: 08 Jul 2020 History of Combined forms of age-related cataract of both eyes (366.19) (H25.813) Resolved Date: 08 Jul 2020 History of Dry eye syndrome of both eyes (375.15) (H04.123) Resolved Date: 08 Jul 2020 History of chest pain (V13.89) (Z87.898) Resolved Date: 08 Jul 2020 Surgical History History of Cataract surgery March in both eyes 2020 History of Cholecystectomy History of Colonoscopy History of Coronary artery stent placement (more content not included)... Normal [facility] BASIC METABOLIC PANELon 04-3 Anion gap [Moles/Vol] 13 mmol/L Normal 10 - 20 [facility] Comment on above: Performed By: #### BMP #### [address] [address] Calcium [Mass/Vol] 9.4 mg/dL Normal 8.6 - 10.3 [facility] Comment on above: Performed By: #### BMP #### [address] [address] Chloride [Moles/Vol] 98 mmol/L Normal 98 - 107 [facility] Comment on above: Performed By: #### BMP #### [address] [address] Creatinine [Mass/Vol] 1.07 mg/dL Normal 0.50 - 1.30 [facility] Comment on above: Performed By: #### BMP #### [address] [address] GFR/1.73 sq M.predicted among non-blacks MDRD (S/P/Bld) [Vol rate/Area] 70 mL/min/{1.73_m2} Normal >90 [facility] Comment on above: Result Comment: CALCULATIONS OF ESTIMATE D GFR ARE PERFORMED USING THE 2020 CKD-EPI STUDY REFIT EQUATION WITHOUT THE RACE VARIABLE FOR THE IDMS-TRACEABLE CREATININE METHODS. https://jasn.asnjournals.org/content/early/ASN.5189946884 Performed By: #### B MP #### [address] [address] Glucose [Mass/Vol] 143 mg/dL High 74 - 99 [facility] Comment on above: Performed By: #### BMP #### [address] [address] HCO3 (Bld) [Moles/Vol] 29 mmol/L Normal 21 - 32 [facility] Comment on above: Performed By: #### BMP #### [address] [address] Potassium [Moles/Vol] 4.7 mmol/L Normal 3.5 - 5.3 [facility] Comment on above: Performed By: #### BMP #### [address] [address] Sodium [Moles/Vol] 135 mmol/L Low 136 - 145 [facility] Comment on above: Performed By: #### BMP #### [address] [address] Urea nitrogen [Mass/Vol] 25 mg/dL High 6 - 23 [facility] Comment on above: Performed By: #### BMP #### [address] [address] HEMOGLOBIN A1Con 07-05-2021 Glucose [Mass/Vol] 157 mg/dL Normal [facility] Comment on above: Performed By: #### HBA1E #### [address] [address] HbA1c (Bld) [Mass fraction] 7.1 % Abnormal [facility] Comment on above: Result Comment: Diagnosis of Diabetes-Ad ults Non-Diabetic: < or = 5.6% Increased risk for developing diabetes: 5.7-6.4% Diagnostic of diabetes: > or = 6.5% . Monitoring of Diabetes Age (y) Therapeutic Goal (%) Adults: >18 <7.0 Pediatrics: 13-18 <7.5 7-12 <8.0 0- 6 7.5-8.5 [employer]. Diabetes Care 33(S1), Mar 2009. Performed By: #### H BA1E #### [address] [address] Hemoglobin A1Con 07-05-2021 Glucose [Mass/Vol] 157 mg/dL [facility] Work Phone: HbA1c (Bld) [Mass fraction] 7.1 % Abnormal [facility] Work Phone: Comment on above: Diagnosis of Diabetes-Adults Non-Diabeti c: < or = 5.6% Increased risk for developing diabetes: 5.7-6.4% Diagnostic of diabetes: > or = 6.5%. Monitoring of Diabetes Age (y) Therapeutic Goal (%) Adults: >18 <7.0 Pediatrics: 13-18 <7.5 7-12 <8.0 0- 6 7.5-8.5 [employer]. Diabetes Care 33(S1), Mar 2009. Laboratory - Chemistry and C hemistry - challengeon 07-05-2021 Anion gap [Moles/Vol] 13 mmol/L 10 - 20 [facility] Work Phone: Calcium [Mass/Vol] 9.4 mg/dL 8.6 - 10.3 [facility] Work Phone: Chloride [Moles/Vol] 98 mmol/L 98 - 107 [facility] Work Phone: CO2 [Moles/Vol] 29 mmol/L 21 - 32 [facility] Work Phone: Creatinine [Mass/Vol] 1.07 mg/dL See Below [facility] Work Phone: Comment on above: Reference Range: 0.50 - 1.30 Glucose [Mass/Vol] 143 mg/dL above high threshold 74 - 99 [facility] Work Phone: Potassium [Moles/Vol] 4.7 mmol/L 3.5 - 5.3 [facility] Work Phone: Sodium [Moles/Vol] 135 mmol/L below low threshold 136 - 145 [facility] Work Phone: Urea nitrogen [Mass/Vol] 25 mg/dL above high threshold 6 - 23 [facility] Work Phone: No Panel Informationon 07-05 70 {mL/min/1.73m2} >90 [facility] Work Phone: Comment on above: CALCULATIONS OF ESTIMATED GFR ARE PERFOR MED USING THE 2020 CKD-EPI STUDY REFIT EQUATION WITHOUT THE RACE VARIABLE FOR THE IDMS-TRACEABLE CREATININE METHODS.https://jasn.asnjournals.org/content/early/ASN.2020 355275 VITAMIN B12on 07-05-2021 Cobalamin (Vitamin B12) [Mass/Vol] 278 pg/mL Normal 211 - 911 [facility] Comment on above: Performed By: #### VTB12 #### [facility] [address] [place] [address] Vitamin B12, Serumon 022 Cobalamin (Vitamin B12) [Mass/Vol] 278 pg/mL 211 - 911 [facility] Phone: Tobacco Screening.on 021 Fall risk assessment a) No falls within the last year [facility] Work Phone: Tobacco use status CPHS b) No [facility] Work Phone: Hemoglobin A1Con 12-28-2020 Glucose [Mass/Vol] 160 mg/dL [facility] Phone: HbA1c (Bld) [Mass fraction] 7.2 % Abnormal [facility] Phone: Comment on above: Diagnosis of Diabetes-Adults Non-Diabeti c: < or = 5.6% Increased risk for developing diabetes: 5.7-6.4% Diagnostic of diabetes: > or = 6.5%. Monitoring of Diabetes Age (y) Therapeutic Goal (%) Adults: >18 <7.0 Pediatrics: 13-18 <7.5 7-12 <8.0 0- 6 7.5-8.5 [employer]. Diabetes Care 33(S1), Mar 2009. Laboratory - Chemistry and C hemistry - challengeon 12-28-2020 Albumin BCP dye [Mass/Vol] 4.2 g/dL 3.4 - 5.0 [facility] Work Phone: ALP [Catalytic activity/Vol] 52 U/L 33 - 136 [facility] Work Phone: ALT With P-5'-P [Catalytic activity/Vol] 18 U/L 10 - 52 [facility] Work Phone: Comment on above: Patients treated with Sulfasalazine may generate falsely decreased results for ALT. Anion gap [Moles/Vol] 12 mmol/L 10 - 20 [facility] Work Phone: AST With P-5'-P [Catalytic activity/Vol] 17 U/L 9 - 39 [facility] Work Phone: Bilirubin [Mass/Vol] 0.6 mg/dL 0.0 - 1.2 [facility] Work Phone: Calcium [Mass/Vol] 9.7 mg/dL 8.6 - 10.3 [facility] Work Phone: Chloride [Moles/Vol] 100 mmol/L 98 - 107 [facility] Work Phone: CO2 [Moles/Vol] 29 mmol/L 21 - 32 [facility] Work Phone: Creatinine [Mass/Vol] 0.94 mg/dL See Below [facility] Work Phone: Comment on above: Reference Range: 0.50 - 1.30 Glucose [Mass/Vol] 155 mg/dL above high threshold 74 - 99 [facility] Work Phone: Potassium [Moles/Vol] 4.0 mmol/L 3.5 - 5.3 [facility] Work Phone: Protein [Mass/Vol] 6.9 g/dL 6.4 - 8.2 [facility] Work Phone: Sodium [Moles/Vol] 137 mmol/L 136 - 145 [facility] Work Phone: Urea nitrogen [Mass/Vol] 18 mg/dL 6 - 23 [facility] Work Phone: Laboratory - Hematology and Cell countson 12-28-2020 Erythrocyte distribution width (RBC) [Ratio] 14.4 % See Below [facility] Work Phone: Comment on above: Reference Range: 11.5 - 14.5 Hematocrit (Bld) [Volume fraction] 45.8 % See Below [facility] Work Phone: Comment on above: Reference Range: 41.0 - 52.0 Hemoglobin (Bld) [Mass/Vol] 15.2 g/dL See Below [facility] Work Phone: Comment on above: Reference Range: 13.5 - 17.5 MCHC (RBC) [Mass/Vol] 33.3 g/dL See Below [facility] Work Phone: Comment on above: Reference Range: 32.0 - 36.0 MCV (RBC) [Entitic vol] 89 fL 80 - 100 [facility] Work Phone: Platelets (Bld) [#/Vol] 192 10*3/uL 150 - 450 [facility] Work Phone: RBC (Bld) [#/Vol] 5.12 {x10E12/L} See Below [facility] Work Phone: Comment on above: Reference Range: 4.50 - 5.90 WBC (Bld) [#/Vol] 5.1 10*3/uL 4.4 - 11.3 [facility] Work Phone: Lipid Panelon 12-28-2020 Cholesterol [Mass/Vol] 106 mg/dL 0 - 199 [facility] Work Phone: Comment on above: . AGE DESIRABLE BORDERLINE HIGH HIGH 0-1 9 Y 0 - 169 170 - 199 >/= 200 20-24 Y 0 - 189 190 - 224 >/= 225 >24 Y 0 - 199 200 - 239 >/= 240 All ranges are based on fasting samples. Specific therapeutic targets will vary based on patient-specific cardiac risk.. Pediatric guidelines reference:Pediatrics 2011, 128(S5). Adult guidelines reference: NCEP ATPIII Guidelines, VIRGILIO 2001, 258:2486-97. Venipuncture immediately after or during the administration of Metamizole may lead to falsely low results. Testing should be performed immediately prior to Metamizole dosing. Cholesterol in HDL [Mass/Vol] 38.0 mg/dL Abnormal [facility] Work Phone: Comment on above: . AGE VERY LOW LOW NORMAL HIGH 0-19 Y < 35 < 40 40-45 ---- 20-24 Y ---- < 40 >45 ---- >24 Y ---- < 40 40-60 >60. Cholesterol in LDL [Mass/Vol] 51 mg/dL 0 - 99 [facility] Work Phone: Comment on above: . NEAR BORD AGE DESIRABLE OPTIMAL HIGH H IGH VERY HIGH 0-19 Y 0 - 109 --- 110-129 >/= 130 ---- 20-24 Y 0 - 119 --- 120-159 >/= 160 ---- >24 Y 0 - 99 100-129 130-159 160-189 >/=190. Cholesterol.tot al/Cholesterol in HDL [Mass ratio] 2.8 {ratio} [facility] Work Phone: Comment on above: REF VALUESDESIRABLE < 3.4HIGH RISK > 5.0 Triglyceride [Mass/Vol] 85 mg/dL 0 - 149 [facility] Phone: Comment on above: . AGE DESIRABLE BORDERLINE HIGH HIGH VENU Y HIGH 0 D-90 D 19 - 174 ---- ---- ----91 D- 9 Y 0 - 74 75 - 99 >/= 100 ---- 10-19 Y 0 - 89 90 - 129 >/= 130 ---- 20-24 Y 0 - 114 115 - 149 >/= 150 ---- >24 Y 0 - 149 150 - 199 200- 499 >/= 500. Venipuncture immediately after or during the administration of Metamizole may lead to falsely low results. Testing should be performed immediately prior to Metamizole dosing. Lipid Panel 17 mg/dL 0 - 40 [facility] Work Phone: No Panel Informationon 12-28 >60 >60 [facility] Work Phone: Comment on above: CALCULATIONS OF ESTIMATED GFR ARE PERFOR MED USING THE MDRD STUDY EQUATION FOR THE IDMS-TRACEABLE CREATININE METHODS. CLIN CHEM 2007;53:766-72 Prostate Specific Antigenon 12-28-2020 Prostate specific Ag [Mass/Vol] ng/mL See Below [facility] Work Phone: Comment on above: Reference Range: 0.00 - 4.00The FDA requ ires that the method used for PSA assay be reported to the physician. Values obtained with different assay methods must not be used interchangeably. This [facility] using the [employer] PSA assay is a two-site immunoenzymatic sandwich assay. The assay is approved for measurement of prostate-specific antigen (PSA)in serum and may be used in conjunction with a digital rectal examination in men 50 years and older as an aid in detection of prostate cancer.9-Bmlhg-djkmhvrvy inhibitors (e.g. Proscar, Finasteride, Avodart, Dutasteride and Yessica) for the treatment of BPH have been shown to lower PSA levels by an average of 50% after 6 months of treatment. Vitamin B12, Serumon 021 Cobalamin (Vitamin B12) [Mass/Vol] 291 pg/mL 211 - 911 [facility] Work Phone: MRI Brain w/wo Contraston MR Brain WO and W contrast IV Interpreted by: NEYDA PANCHAL06/18/20 15:43MRN: [id number] Name: ALL YOUNG STUDY:MRI BRAIN W/WO CONTRAST; 06/18/2020 2:58 pm INDICATION:Memory loss NO TO MRI QUESTION. COMPARISON:None. ORDERING CLINICIAN:JAKE DUQUE TECHNIQUE:Axial T2, FLAIR, DWI, gradient echo T2 and sagittal and coronal B3pdfpoldz images of brain were acquired. Contrast was not administereddue to patient refusal. FINDINGS:There is severe diffuse cortical volume loss. There are patchy andfocal areas of increased FLAIR signal within the hemispheric whitematter bilaterally likely reflecting sequela of prior small vesselischemic change. There is focal encephalomalacia and gliotic changeinvolving subinsular region consistent with remote ischemic change.There is no diffusion evidence of acute or subacute ischemic change.There is no gradient echo image evidence of intracranial hemorrhage. IMPRESSION:Cortical volume loss Likely sequela prior small vessel ischemic changes involvingbihemispheric white matter Remote ischemic changes involving the left subinsular regionElectronically signed by: NEYDA PANCHAL 06/18/20 15:43 Normal [facility] Work Phone: Comment on above: ORDER REVISED TO A NR MRI BRAIN W/WO CON TRAST BY RADIOLOGIST; Original Order Number: [id number] NR MRI BRAIN W/WO CONTRASTon 06-18-2020 NR MRI BRAIN W/WO CONTRAST Patient Name: ALL YOUNG STUDY: MRI BRAIN W/WO CONTRAST; 06/18/2020 2:58 pm INDICATION: Memory loss NO TO MRI QUESTION. COMPARISON: None. ACCESSION NUMBER(S): [id number] ORDERING CLINICIAN: JAKE DUQUE TECHNIQUE: Axial T2, FLAIR, DWI, gradient echo T2 and sagittal and coronal T1 weighted images of brain were acquired. Contrast was not administered due to patient refusal. FINDINGS: There is severe diffuse cortical volume loss. There are patchy and focal areas of increased FLAIR signal within the hemispheric white matter bilaterally likely reflecting sequela of prior small vessel ischemic change. There is focal encephalomalacia and gliotic change involving subinsular region consistent with remote ischemic change. There is no diffusion evidence of acute or subacute ischemic change. There is no gradient echo image evidence of intracranial hemorrhage. IMPRESSION: Cortical volume loss Likely sequela prior small vessel ischemic changes involving bihemispheric white matter Remote ischemic changes involving the left subinsular region Electronically signed by: NEYDA PANCHAL MD Normal [facility] BASIC METABOLIC PANELon 03-2 Anion gap [Moles/Vol] 14 mmol/L Normal 10 - 20 [facility] Comment on above: Performed By: #### BMP #### [facility] [address] [place] [address] Calcium [Mass/Vol] 9.3 mg/dL Normal 8.6 - 10.3 [facility] Comment on above: Performed By: #### BMP #### [address] [address] Chloride [Moles/Vol] 98 mmol/L Normal 98 - 107 [facility] Comment on above: Performed By: #### BMP #### [address] [address] Creatinine [Mass/Vol] 0.99 mg/dL Normal 0.50 - 1.30 [facility] Comment on above: Performed By: #### BMP #### [address] [address] GFR- AM. >60 Normal >60 [facility] Comment on above: Result Comment: CALCULATIONS OF ESTIMATE D GFR ARE PERFORMED USING THE MDRD STUDY EQUATION FOR THE IDMS-TRACEABLE CREATININE METHODS. CLIN CHEM 2007;53:766-72 Performed By: #### B MP #### [address] [address] GFR-NON AM. >60 Normal >60 [facility] Comment on above: Performed By: #### BMP #### [address] [address] Glucose [Mass/Vol] 161 mg/dL High 74 - 99 [facility] Comment on above: Performed By: #### BMP #### [address] [address] HCO3 (Bld) [Moles/Vol] 25 mmol/L Normal 21 - 32 [facility] Comment on above: Performed By: #### BMP #### [address] [address] Potassium [Moles/Vol] 4.2 mmol/L Normal 3.5 - 5.3 [facility] Comment on above: Performed By: #### BMP #### [address] [address] Sodium [Moles/Vol] 133 mmol/L Low 136 - 145 [facility] Comment on above: Performed By: #### BMP #### [address] [address] Urea nitrogen [Mass/Vol] 21 mg/dL Normal 6 - 23 [facility] Comment on above: Performed By: #### BMP #### [address] [address] HEMOGLOBIN A1Con 05-29-2020 Glucose [Mass/Vol] 186 mg/dL Normal [facility] Comment on above: Performed By: #### HBA1E #### [address] [address] HbA1c (Bld) [Mass fraction] 8.1 % Normal [facility] Comment on above: Result Comment: Diagnosis of Diabetes-Ad ults Non-Diabetic: < or = 5.6% Increased risk for developing diabetes: 5.7-6.4% Diagnostic of diabetes: > or = 6.5% . Monitoring of Diabetes Age (y) Therapeutic Goal (%) Adults: >18 <7.0 Pediatrics: 13-18 <7.5 7-12 <8.0 0- 6 7.5-8.5 [employer]. Diabetes Care 33(S1), Mar 2009. Performed By: #### H BA1E #### [address] [address] Hemoglobin A1Con 05-29-2020 HbA1c (Bld) [Mass fraction] 8.1 % [facility] Work Phone: Comment on above: Diagnosis of Diabetes-Adults Non-Diabeti c: < or = 5.6% Increased risk for developing diabetes: 5.7-6.4% Diagnostic of diabetes: > or = 6.5%. Monitoring of Diabetes Age (y) Therapeutic Goal (%) Adults: >18 <7.0 Pediatrics: 13-18 <7.5 7-12 <8.0 0- 6 7.5-8.5 [employer]. Diabetes Care 33(S1), Mar 2009. HbA1c (Bld) [Mass fraction] 186 {MG/DL} [facility] Work Phone: Metabolic Panelon 05-29-2020 Anion gap [Moles/Vol] 14 mmol/L 10 - 20 [facility] Work Phone: Calcium [Mass/Vol] 9.3 mg/dL 8.6 - 10.3 [facility] Work Phone: Chloride [Moles/Vol] 98 mmol/L 98 - 107 [facility] Work Phone: CO2 [Moles/Vol] 25 mmol/L 21 - 32 [facility] Work Phone: Creatinine [Mass/Vol] 0.99 mg/dL See Below [facility] Work Phone: Comment on above: Reference Range: 0.50 - 1.30 Glucose [Mass/Vol] 161 mg/dL above high threshold 74 - 99 [facility] Work Phone: Potassium [Moles/Vol] 4.2 mmol/L 3.5 - 5.3 [facility] Work Phone: Sodium [Moles/Vol] 133 mmol/L below low threshold 136 - 145 [facility] Work Phone: Urea nitrogen [Mass/Vol] 21 mg/dL 6 - 23 [facility] Work Phone: Otheron 05-29-2020 >60 >60 [facility] Work Phone: Comment on above: CALCULATIONS OF ESTIMATED GFR ARE PERFOR MED USING THE MDRD STUDY EQUATION FOR THE IDMS-TRACEABLE CREATININE METHODS. CLIN CHEM 2007;53:766-72 2 1 [facility] Work Phone: Comment on above: What year is it: Correct - 0 pointsWhat month is it: Correct - 0 pointsAbout what time is it (within one hour): Correct - 0 pointsCount backwards from 20 to 1: One error - 2 pointsSay the months of the year in reverse: Correct - 0 pointsRepeat address phrase: Correct - 0 points Normal - referral no t necessary at present [facility] Work Phone: TSH WITH REFLEX TO FREE T4 I F ABNORMALon 05-29-2020 TSH Qn 1.41 m[IU]/L Normal 0.44 - 3.98 [facility] Comment on above: Result Comment: TSH testing is performed using different testing methodology at [facility] than at other [facility]. Direct result comparisons should only be made within the same method. Performed By: #### T HYDS #### [place] [id number] Thyroidon 05-29-2020 TSH Qn 1.41 {mIU/L} See Below [facility] Work Phone: Comment on above: Reference Range: 0.44 - 3.98 TSH testing is performed using different testing methodology at [facility] than at other [facility]. Direct result comparisons should only be made within the same method. 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 operator Normal 0.0 - 30.0 [facility] Comment on above: Performed By: #### ALBSP #### [place] [id number] CREATININE,URIN E 97.0 mg/dL Normal 20.0 - 370.0 [facility] Comment on above: Performed By: #### ALBSP #### [place] [id number] COMPREHENSIVE PANELon 2019 Albumin [Mass/Vol] 4.3 g/dL Normal 3.4 - 5.0 [facility] Comment on above: Performed By: #### CMP #### [place] [id number] ALP [Catalytic activity/Vol] 57 U/L Normal 33 - 136 [facility] Comment on above: Performed By: #### CMP #### [address] [address] ALT [Catalytic activity/Vol] 18 U/L Normal 10 - 52 [facility] Comment on above: Result Comment: Patients treated with [place] lfasalazine may generate falsely decreased results for ALT. Performed By: #### C MP #### [place] [id number] Anion gap [Moles/Vol] 11 mmol/L Normal 10 - 20 [facility] Comment on above: Performed By: #### CMP #### [address] [address] AST [Catalytic activity/Vol] 15 U/L Normal 9 - 39 [facility] Comment on above: Performed By: #### CMP #### [address] [address] Bilirubin [Mass/Vol] 0.4 mg/dL Normal 0.0 - 1.2 [facility] Comment on above: Performed By: #### CMP #### [address] [address] Calcium [Mass/Vol] 9.3 mg/dL Normal 8.6 - 10.3 [facility] Comment on above: Performed By: #### CMP #### [address] [address] Chloride [Moles/Vol] 97 mmol/L Low 98 - 107 [facility] Comment on above: Performed By: #### CMP #### [address] [address] Creatinine [Mass/Vol] 0.95 mg/dL Normal 0.50 - 1.30 [facility] Comment on above: Performed By: #### CMP #### [address] [address] GFR- AM. >60 Normal >60 [facility] Comment on above: Result Comment: CALCULATIONS OF ESTIMATE D GFR ARE PERFORMED USING THE MDRD STUDY EQUATION FOR THE IDMS-TRACEABLE CREATININE METHODS. CLIN CHEM 2007;53:766-72 Performed By: #### C MP #### [address] [address] GFR-NON AM. >60 Normal >60 [facility] Comment on above: Performed By: #### CMP #### [address] [address] Glucose [Mass/Vol] 150 mg/dL High 74 - 99 [facility] Comment on above: Performed By: #### CMP #### [address] [address] HCO3 (Bld) [Moles/Vol] 30 mmol/L Normal 21 - 32 [facility] Comment on above: Performed By: #### CMP #### [address] [address] Potassium [Moles/Vol] 4.3 mmol/L Normal 3.5 - 5.3 [facility] Comment on above: Performed By: #### CMP #### [address] [address] Protein [Mass/Vol] 6.9 g/dL Normal 6.4 - 8.2 [facility] Comment on above: Performed By: #### CMP #### [address] [address] Sodium [Moles/Vol] 134 mmol/L Low 136 - 145 [facility] Comment on above: Performed By: #### CMP #### [address] [address] Urea nitrogen [Mass/Vol] 22 mg/dL Normal 6 - 23 [facility] Comment on above: Performed By: #### CMP #### [address] [address] HEMOGLOBIN A1Con 01-06-2020 Glucose [Mass/Vol] 183 mg/dL Normal [facility] Comment on above: Performed By: #### HBA1E #### [address] [address] HbA1c (Bld) [Mass fraction] 8.0 % Normal [facility] Comment on above: Result Comment: Diagnosis of Diabetes-Ad ults Non-Diabetic: < or = 5.6% Increased risk for developing diabetes: 5.7-6.4% Diagnostic of diabetes: > or = 6.5% . Monitoring of Diabetes Age (y) Therapeutic Goal (%) Adults: >18 <7.0 Pediatrics: 13-18 <7.5 7-12 <8.0 0- 6 7.5-8.5 [employer]. Diabetes Care 33(S1), Mar 2009. Performed By: #### H BA1E #### [address] [address] LIPID PANEL (CORONARY RISK 2 )on 01-06-2020 Cholesterol [Mass/Vol] 96 mg/dL Normal 0 - 199 [facility] Comment on above: Result Comment: . AGE DESIRABLE BORDERLINE HIGH HIGH 0-19 Y 0 - 169 170 - 199 >/= 200 20-24 Y 0 - 189 190 - 224 >/= 225 >24 Y 0 - 199 200 - 239 >/= 240 All ranges are based on fasting samples. Specific therapeutic targets will vary based on patient-specific cardiac risk. . Pediatric guidelines reference:Pediatrics 2011, 128(S5). Adult guidelines reference: NCEP ATPIII Guidelines, VIRGILIO 2001, 258:2486-97 . Venipuncture immediately after or during the administration of Metamizole may lead to falsely low results. Testing should be performed immediately prior to Metamizole dosing. Performed By: #### L IPID #### [address] [address] Cholesterol in HDL [Mass/Vol] 34.0 mg/dL Abnormal [facility] Comment on above: Result Comment: . AGE VERY LOW LOW NORMAL HIGH 0-19 Y < 35 < 40 40-45 ---- 20-24 Y ---- < 40 >45 ---- >24 Y ---- < 40 40-60 >60 . Performed By: #### L IPID #### [address] [address] Cholesterol in LDL [Mass/Vol] 30 mg/dL Normal 0 - 99 [facility] Comment on above: Result Comment: . NEAR BORD AGE DESIRABLE OPTIMAL HIGH HIGH VERY HIGH 0-19 Y 0 - 109 --- 110-129 >/= 130 ---- 20-24 Y 0 - 119 --- 120-159 >/= 160 ---- >24 Y 0 - 99 100-129 130-159 160-189 >/=190 . Performed By: #### L IPID #### [address] [address] Cholesterol in VLDL [Mass/Vol] 32 mg/dL Normal 0 - 40 [facility] Comment on above: Performed By: #### LIPID #### [address] [address] Cholesterol.tot al/Cholesterol in HDL [Mass ratio] 2.8 {ratio} Normal [facility] Comment on above: Result Comment: REF VALUES DESIRABLE < 3.4 HIGH RISK > 5.0 Performed By: #### L IPID #### [address] [address] Triglyceride [Mass/Vol] 162 mg/dL High 0 - 149 [facility] Comment on above: Result Comment: . AGE DESIRABLE BORDERLINE HIGH HIGH VERY HIGH 0 D-90 D 19 - 174 ---- ---- ---- 91 D- 9 Y 0 - 74 75 - 99 >/= 100 ---- 10-19 Y 0 - 89 90 - 129 >/= 130 ---- 20-24 Y 0 - 114 115 - 149 >/= 150 ---- >24 Y 0 - 149 150 - 199 200- 499 >/= 500 . Venipuncture immediately after or during the administration of Metamizole may lead to falsely low results. Testing should be performed immediately prior to Metamizole dosing. Performed By: #### L IPID #### [address] [address] PROSTATE SPECIFIC AGon 01-05 Prostate specific Ag [Mass/Vol] ng/mL Normal 0.00 - 4.00 [facility] Comment on above: Result Comment: The FDA requires that th e method used for PSA assay be reported to the physician. Values obtained with different assay methods must not be used interchangeably. This test was performed at [facility] using the [employer] PSA assay is a two-site immunoenzymatic sandwich assay. The assay is approved for measurement of prostate-specific antigen (PSA)in serum and may be used in conjunction with a digital rectal examination in men 50 years and older as an aid in detection of prostate cancer. 4-Vbvsw-xbftwyrwg inhibitors (e.g. Proscar, Finasteride, Avodart, Dutasteride and Yessica) for the treatment of BPH have been shown to lower PSA levels by an average of 50% after 6 months of treatment. Performed By: #### P SA #### [address] [address] VITAMIN B12on 01-06-2020 Cobalamin (Vitamin B12) [Mass/Vol] 323 pg/mL Normal 211 - 911 [facility] Comment on above: Performed By: #### [id number] #### [address] [address] BMPon 07-02-2018 Anion gap molar conc 11 mmol/L Normal 10-20 [facility] Comment on above: Performed By: #### [id number] #### [address] [address] Calcium mass conc 9.6 mg/dL Normal 8.6-10.3 [facility] Comment on above: Performed By: #### [id number] #### [address] [address] Chloride molar conc 100 mmol/L Normal 98-107 [facility] Comment on above: Performed By: #### [id number] #### [address] [address] CO2 molar conc 29.0 mmol/L Normal 21.0-32.0 [facility] Comment on above: Performed By: #### [id number] #### [facility] [address] [address] Creatinine mass conc 1.0 mg/dL Normal 0.5-1.3 [facility] Comment on above: Performed By: #### [id number] #### [address] [address] Glucose mass conc 186 mg/dL High 70-99 [facility] Comment on above: Performed By: #### [id number] #### [facility] [employer] [address] [place] [address] Potassium molar conc 4.6 mmol/L Normal 3.5-5.3 [facility] Comment on above: Performed By: #### [id number] #### [facility] [employer] [address] [place] [address] Sodium molar conc 135 mmol/L Low 136-145 [facility] Comment on above: Performed By: #### [id number] #### [facility] [address] [place] [address] Urea nitrogen mass conc 20 mg/dL Normal 6-23 [facility] Comment on above: Performed By: #### [id number] #### [facility] [place] [address] Urea nitrogen/Creati nine mass ratio 20.0 ratio Normal 5.4-30.0 [facility] Comment on above: Performed By: #### [id number] #### [facility] [place] [address] [id number] 07-02-2018 Hemoglobin A1c/Hemoglobin. total mass fraction (Bld) 8.3 % High 4.0-6.3 [facility] Comment on above: Performed By: #### [id number] #### [facility] Chemistry Manual Subsection [address] [place] [address] Microalb/Creat Ratioon 07-02 Creatinine mass conc 158.0 mg/dL Normal 20.0-300.0 [facility] Comment on above: Performed By: #### [id number] #### [facility] [address] [place] [address] Creatinine mass conc 11 ug/mg Normal 0-30 [facility] Comment on above: Performed By: #### [id number] #### [facility] [address] [place] [address] Ur Microalbumin 1.7 mg/dL Normal 0.0-1.9 [facility] Comment on above: Performed By: #### [id number] #### [facility] [address] [place] [address] eGFRon 07-02-2018 GFR/1.73 sq M predicted among non-blacks MDRD vol rate/area (S/P/Bld) mL/min/{1.73_m2} Normal [facility] Comment on above: Order Comment: Order added by Discern Ex pert. Performed By: #### [id number] #### [facility] [place] [address] BMPon 01-08-2018 Anion gap molar conc 12 mmol/L Normal 10-20 [facility] Comment on above: Performed By: #### [id number] #### [facility] [address] [place] [address] Calcium mass conc 9.7 mg/dL Normal 8.6-10.3 [facility] Comment on above: Performed By: #### [id number] #### [facility] [address] [place] [address] Chloride molar conc 96 mmol/L Low 98-107 [facility] Comment on above: Performed By: #### [id number] #### [facility] [address] [place] [address] CO2 molar conc 29.0 mmol/L Normal 21.0-32.0 [facility] Comment on above: Performed By: #### [id number] #### [facility] [address] [place] [address] Creatinine mass conc 1.0 mg/dL Normal 0.6-1.3 [facility] Comment on above: Performed By: #### [id number] #### [facility] [employer] [address] [place] [address] Glucose mass conc 160 mg/dL High 70-99 [facility] Comment on above: Performed By: #### [id number] #### [facility] [employer] [address] [place] [address] Potassium molar conc 4.4 mmol/L Normal 3.5-5.3 [facility] Comment on above: Performed By: #### [id number] #### [facility] [employer] [address] [place] [address] Sodium molar conc 133 mmol/L Low 136-145 [facility] Comment on above: Performed By: #### [id number] #### [facility] [employer] [address] [place] [address] Urea nitrogen mass conc 24 mg/dL High 6-23 [facility] Comment on above: Performed By: #### [id number] #### [facility] [address] [place] [address] Urea nitrogen/Creati nine mass ratio 24.0 ratio Normal 5.4-30.0 [facility] Comment on above: Performed By: #### [id number] #### [facility] [employer] [address] [place] [address] [id number] 01-08-2018 Hemoglobin A1c/Hemoglobin. total mass fraction (Bld) 8.3 % High 4.0-6.3 [facility] Comment on above: Performed By: #### [id number] #### [facility] Chemistry Manual Subsection [address] [place] [address] Lipid Profileon 01-08-2018 Cholesterol in HDL mass conc 37 mg/dL Normal [facility] Comment on above: Performed By: #### [id number] #### [facility] [address] [place] [address] Cholesterol in LDL mass conc 44 mg/dL Normal 0-130 [facility] Comment on above: Performed By: #### [id number] #### [facility] [address] [place] [address] Cholesterol in VLDL mass conc 24 mg/dL Normal [facility] Comment on above: Performed By: #### [id number] #### [facility] [address] [place] [address] Cholesterol mass conc 105 mg/dL Low 120-200 [facility] Comment on above: Performed By: #### [id number] #### [facility] [address] [place] [address] Triglyceride mass conc 122 mg/dL Normal 0-150 [facility] Comment on above: Result Comment: AGE DESIRABLE BORDELINE HIGH 91 D - 9 Y 0 - 74 75 - 99 > 100 10 - 19 Y 0 - 89 90 - 129 > 130 20 - 24 Y 0 - 114 115 - 149 > 150 > 25 Y 0 - 149 150 - 199 200 - 499 Performed By: #### [id number] #### [facility] [address] [place] [address] PSA Totalon 01-08-2018 PSA Total <0.10 Normal [facility] Comment on above: Performed By: #### [id number] #### [facility] [address] [place] [address] eGFRon 01-08-2018 GFR/1.73 sq M predicted among non-blacks MDRD vol rate/area (S/P/Bld) mL/min/{1.73_m2} Normal [facility] Comment on above: Order Comment: Order added by Discern Ex pert. Performed By: #### [id number] #### [facility] [address] [place] [address] ECG 12 Leadon 09-13-2017 Atrial Rate Invalid Interpretation Code [facility] [place] Invalid Interpretation Code [facility] P-R Interval Invalid Interpretation Code [facility] Q-T Interval Invalid Interpretation Code [facility] Q-T Interval (corrected) Invalid Interpretation Code [facility] QRS Duration Invalid Interpretation Code [facility] QTC Calculation (Bezet) Invalid Interpretation Code [facility] R [place] Invalid Interpretation Code [facility] T [place] Invalid Interpretation Code [facility] Ventricular Rate Invalid Interpretation Code [facility] Vital Signs Date Time Vital Sign Value Performing Clinician Facility 01-20-2024 14:57-0500 Body mass index (BMI) [Ratio] 22.63 kg/m2 Jake Duque MD Work Phone: [facility] 01-20-2024 14:57-0500 Body weight 68.49 kg Jake Duque MD Work Phone: [facility] 01-20-2024 14:57-0500 Diastolic blood pressure 77 mm[Hg] Jake Duque MD Work Phone: [facility] 01-20-2024 14:57-0500 Heart rate 77 /min Jake Duque MD Work Phone: [facility] 01-20-2024 14:57-0500 SaO2% (BldA) [Mass fraction] 96 % Jake Duque MD Work Phone: [facility] 01-20-2024 14:57-0500 Systolic blood pressure 118 mm[Hg] Jake Duque MD Work Phone: [facility] 07-20-2023 14:48-0400 Body height 174 cm Jake Duque MD Work Phone: [facility] 07-20-2023 14:48-0400 Body mass index (BMI) [Ratio] 23.08 kg/m2 Jake Duque MD Work Phone: [facility] 07-20-2023 14:48-0400 Body weight 69.85 kg Jake Duque MD Work Phone: [facility] 07-20-2023 14:48-0400 Diastolic blood pressure 72 mm[Hg] Jake Duque MD Work Phone: [facility] 07-20-2023 14:48-0400 Heart rate 72 /min Jake Duque MD Work Phone: [facility] 07-20-2023 14:48-0400 SaO2% (BldA) [Mass fraction] 96 % Jake Duque MD Work Phone: [facility] 07-20-2023 14:48-0400 Systolic blood pressure 122 mm[Hg] Jake Duque MD Work Phone: [facility] 02-23-2023 14:27-0500 Body mass index (BMI) [Ratio] 23.48 kg/m2 Jake Duque MD Work Phone: [facility] 02-23-2023 14:27-0500 Body weight 72.12 kg Jake Duque MD Work Phone: [facility] 02-23-2023 14:27-0500 Diastolic blood pressure 72 mm[Hg] Jake Duque MD Work Phone: [facility] 02-23-2023 14:27-0500 Heart rate 69 /min Jake Duque MD Work Phone: [facility] 02-23-2023 14:27-0500 SaO2% (BldA) [Mass fraction] 96 % Jake Duque MD Work Phone: [facility] 02-23-2023 14:27-0500 Systolic blood pressure 116 mm[Hg] Jake Duque MD Work Phone: [facility] 01-11-2023 15:30-0500 Body mass index (BMI) [Ratio] 24.07 kg/m2 Jake Duque MD Work Phone: [facility] 01-11-2023 15:30-0500 Body weight 73.94 kg Jake Duque MD Work Phone: [facility] 01-11-2023 15:30-0500 Diastolic blood pressure 70 mm[Hg] Jake Duque MD Work Phone: [facility] 01-11-2023 15:30-0500 Heart rate 73 /min Jake Duque MD Work Phone: [facility] 01-11-2023 15:30-0500 SaO2% (BldA) [Mass fraction] 97 % Jake Duque MD Work Phone: [facility] 01-11-2023 15:30-0500 Systolic blood pressure 122 mm[Hg] Jake Duque MD Work Phone: [facility] 07-07-2022 15:19-0400 Body height 175.3 cm Jake Duque MD Work Phone: [facility] 07-07-2022 15:19-0400 Body mass index (BMI) [Ratio] 25.84 kg/m2 Jake Duque MD Work Phone: [facility] 07-07-2022 15:19-0400 Body weight 79.38 kg Jake Duque MD Work Phone: [facility] 07-07-2022 15:19-0400 Diastolic blood pressure 78 mm[Hg] Jake Duque MD Work Phone: [facility] 07-07-2022 15:19-0400 Heart rate 79 /min Jake Duque MD Work Phone: [facility] 07-07-2022 15:19-0400 SaO2% (BldA) [Mass fraction] 96 % Jake Duque MD Work Phone: [facility] 07-07-2022 15:19-0400 Systolic blood pressure 110 mm[Hg] Jake Duque MD Work Phone: [facility] 02-17-2022 13:53-0500 Body height 175.26 cm Jake Duque Work Phone: [facility] Work Phone: 02-17-2022 13:53-0500 Body mass index (BMI) [Ratio] 24.96 kg/m2 Jake O Duque Work Phone: [facility] Work Phone: 02-17-2022 13:53-0500 Body surface area Derived from formula 1.92 m2 Jake O Duque Work Phone: [facility] Work Phone: 02-17-2022 13:53-0500 Body weight 76.66 kg Jake O Duque Work Phone: [facility] Work Phone: 02-17-2022 13:53-0500 Diastolic blood pressure 76 mm[Hg] Jake O Duque Work Phone: [facility] Work Phone: 02-17-2022 13:53-0500 Heart rate 68 /min Jake O Duque Work Phone: [facility] Work Phone: 02-17-2022 13:53-0500 Systolic blood pressure 128 mm[Hg] Jake O Duque Work Phone: [facility] Work Phone: 12-06-2021 06:09-0400 Body temperature 98 [degF] [facility] Work Phone: 12-06-2021 06:09-0400 Diastolic blood pressure 82 mm[Hg] [facility] Work Phone: 12-06-2021 06:09-0400 Heart rate 61 /min [facility] Work Phone: 12-06-2021 06:09-0400 Respiratory rate 17 /min [facility] Work Phone: 12-06-2021 06:09-0400 SaO2% (BldA) [Mass fraction] 96 % [facility] Work Phone: 12-06-2021 06:09040 Systolic blood pressure 141 mm[Hg] [facility] Work Phone: 12-06-2021 04:09-0400 Body height 177.8 cm [facility] Work Phone: 12-06-2021 04:09-0400 Body mass index (BMI) [Ratio] 24.2 kg/m2 [facility] Work Phone: 12-06-2021 04:09040 Body weight 76.5 kg [facility] Work Phone: 01-09-2021 13:50-0400 Body height 175.9 cm Jake O Duque Work Phone: [facility] Work Phone: 01-09-2021 13:50-0400 Body mass index (BMI) [Ratio] 25.51 kg/m2 Jake O Duque Work Phone: [facility] Work Phone: 01-09-2021 13:50-0400 Body surface area Derived from formula 1.95 m2 Jake O Duque Work Phone: [facility] Work Phone: 01-09-2021 13:50-0400 Body weight 78.93 kg Jake O Duque Work Phone: [facility] Work Phone: 01-09-2021 13:50-0400 Diastolic blood pressure 64 mm[Hg] Jake O Duque Work Phone: [facility] Work Phone: 01-09-2021 13:50-0400 Heart rate 72 /min Jake O Duque Work Phone: [facility] Work Phone: 01-09-2021 13:50-0400 Systolic blood pressure 110 mm[Hg] Jake Duque Work Phone: [facility] Work Phone: 07-08-2020 11:37-0400 Body height 175.9 cm Jake Duque MD [facility] Work Phone: 07-08-2020 11:37-0400 Body mass index (BMI) [Ratio] 27.12 kg/m2 Jake Duque MD [facility] Work Phone: 07-08-2020 11:37-0400 Body surface area Derived from formula 2 m2 Jake Duque MD [facility] Work Phone: 07-08-2020 11:37-0400 Body weight 83.92 kg Jake Duque MD [facility] Work Phone: 07-08-2020 11:37-0400 Diastolic blood pressure 80 mm[Hg] Jake Duque MD [facility] Work Phone: Comment on above: [place] [facility] 07-08-2020 11:37-0400 Heart rate 72 /min Jake Duque MD [facility] Work Phone: 07-08-2020 11:37-0400 Systolic blood pressure 124 mm[Hg] Jake Duque MD [facility] Work Phone: Comment on above: Location: E; 05-29-2020 11:09-0400 BMI (Body Mass Index) 27.85 kg/m2 Jake Duque [facility] Work Phone: 05-29-2020 11:09-0400 Body weight 86.18 kg Jake Duque [facility] Work Phone: 05-29-2020 11:09-0400 BP Diastolic 74 mm[Hg] Jake Duque [facility] Work Phone: Comment on above: Location: E; 05-29-2020 11:090400 BP Systolic 126 mm[Hg] [facility] Work Phone: Comment on above: Location: [facility]; 05-29-2020 11:090400 BSA (Body Surface Area) 2.03 m2 Jake Duque [facility] Work Phone: 05-29-2020 11:09040 Height 175.9 cm Jake Roland [facility] Work Phone: 05-29-2020 11:09040 Pulse (Heart Rate) 68 /min Jake Duque [facility] Work Phone: 09-13-2017 13:01-0400 BMI (Body Mass Index) 28.71 kg/m2 Ryan Dillard [facility] 09-13-2017 13:01-0400 Height 177.8 cm Ryan Dillard [facility] 09-13-2017 13:01-0400 Weight 90.77 kg Ryan Dillard [facility] Encounters Encounter Date Encounter Type Care Provider Facility Start: 07-27-2024 End: 07-27-2024 ambulatory [facility] Ambulatory Start: 01-20-2024 End: 01-20-2024 Office outpatient visit 25 minutes Jake Duque MD Work Phone: [facility] Comment on above: 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 (Primary Dx); 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); Hypercholesterolemia; Primary hypertension; Type 2 diabetes mellitus without complication, without long-term current use of insulin (Multi); Abnormal weight loss; Benign prostatic hyperplasia with urinary obstruction; Bilateral renal cysts; Cervical spondylolysis; Atherosclerosis of [place] coronary artery of [place] heart with stable angina pectoris; 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 (Multi); Hiatal hernia; Chronic bilateral low back pain without sciatica; Malignant neoplasm of skin; Prostate cancer (Multi); Pseudophakia, both eyes; 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, psychotic disturbance, mood disturbance, or anxiety; Urge incontinence of urine Start: 01-20-2024 End: 01-20-2024 ambulatory [facility] Ambulatory Start: 01-20-2024 End: 01-20-2024 ambulatory JOSIANE DANIELS [facility] Start: 07-20-2023 End: 07-20-2023 Office outpatient visit 25 minutes Jake Duque MD Work Phone: [facility] Comment on above: Abnormal weight loss (Primary Dx); Benign prostatic hyperplasia with urinary obstruction; Atherosclerosis of [place] coronary artery of [place] heart with stable angina pectoris (CMS-HCC); 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 (Multi); Hiatal hernia; 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); Hypercholesterolemia; Malignant neoplasm of skin; 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, psychotic disturbance, mood disturbance, or anxiety (Multi); Prostate cancer (Multi); Pseudophakia, both eyes; Skin ulcer, limited to breakdown of skin (Multi); Urge incontinence of urine Start: 07-03-2023 End: 07-03-2023 ambulatory [facility] Start: 02-23-2023 End: 02-23-2023 Office outpatient visit 15 minutes Jake Duque MD Work Phone: [facility] Comment on above: Diabetic mononeuropa thy associated with type 2 diabetes mellitus (CMS/HCC) (Primary Dx); Abnormal weight loss; 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, psychotic disturbance, mood disturbance, or anxiety (CMS/HCC) Start: 01-11-2023 End: 01-11-2023 Assay of hemosiderin, quant Jake Duque MD Work Phone: [facility] Work Phone: Start: 01-11-2023 End: 01-11-2023 Office outpatient visit 25 minutes Jake Duque MD Work Phone: [facility] Comment on above: Routine general medi jean examination at health care facility (Primary Dx); 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, psychotic disturbance, mood disturbance, or anxiety (CMS/HCC); Hypercholesterolemia; Atherosclerosis of [place] coronary artery of [place] heart with stable angina pectoris (CMS/HCC); Primary hypertension; Pseudophakia, both eyes; Hiatal hernia; Benign prostatic hyperplasia with urinary obstruction; Bilateral renal cysts; Urge incontinence of urine; Malignant neoplasm of skin; Prostate cancer (CMS/HCC); Cervical spondylolysis; 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 (CMS/HCC); Abnormal weight loss; Skin ulcer, limited to breakdown of skin (CMS/HCC) Start: 07-07-2022 End: 07-07-2022 Office outpatient visit 25 minutes Jake Duque MD Work Phone: [facility] Comment on above: 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 (Primary Dx); Prostate cancer (CMS/HCC); Bilateral renal cysts; Cervical spondylolysis; Atherosclerosis of [place] coronary artery of [place] heart with stable angina pectoris (CMS/HCC); 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 (CMS/HCC); Hiatal hernia; Hypercholesterolemia; Primary hypertension; Chronic bilateral low back pain without sciatica; 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, psychotic disturbance, mood disturbance, or anxiety ([facility]/HCC); Malignant neoplasm of skin; Pseudophakia, both eyes; Urge incontinence of urine Start: 03-13-2022 AUDIT Jake Duque Work Phone: [facility] Work Phone: Start: 02-17-2022 Office outpatient vi sit 15 minutes Jake Duque Work Phone: [facility] Work Phone: Start: 02-17-2022 ambulatory Jake Duque Facil [id number] Start: 01-13-2022 ambulatory Jake Duque Facil [id number] Start: 12-06-2021 End: 12-06-2021 Emergency department patient visit [facility] Facility:[facility] Start: 12-06-2021 End: 12-06-2021 Emergency department patient visit [facility] Start: 10-02-2021 AUDIT Jake Duque Work Phone: [facility] Work Phone: Start: 07-11-2021 ambulatory Jake Duque [facility] [id number] Start: 07-07-2021 Chart Update Jake Duque Work Phone: [facility] Work Phone: Start: 01-09-2021 Office outpatient vi sit 25 minutes Jake Duque Work Phone: [facility] Work Phone: Start: 10-07-2020 AUDIT Jake Moralezer Work Phone: [facility] Work Phone: Start: 07-08-2020 Patient encounter procedure Jake Duque MD [facility] Work Phone: Start: 05-29-2020 Patient encounter procedure Jake Duque [facility] Work Phone: Start: 01-11-2020 Patient encounter procedure Jake Duque [facility] Work Phone: Start: 07-11-2019 Patient encounter procedure Jake Duque [facility] Work Phone: Start: 01-11-2019 Patient encounter procedure Jake Moralezer [facility] Work Phone: Start: 07-08-2018 End: 07-09-2018 Patient encounter procedure Jake Duque Facility:[facility] Start: 07-02-2018 End: 07-03-2018 Patient encounter procedure Jake Duque Facility:[facility] Start: 01-08-2018 End: 01-09-2018 Patient encounter procedure Jake Duque Facility:[facility] Start: 01-07-2018 End: 01-08-2018 Patient encounter procedure Jake Duque Facility:[facility] Start: 09-13-2017 End: 09-13-2017 Office outpatient visit 15 minutes Ryan Dillard Work Phone: [facility] Office Procedures Date Procedure Procedure Detail Performing Clinician Start: 01-20-2024 Lipid 1996 panel - Serum or Plasma Jake Duque MD Work Phone: Start: 07-03-2023 Comprehensive metabolic 2000 panel - Serum or Plasma JAKE DUQUE Start: 07-03-2023 Hemoglobin A1c/Hemoglobin.total in Blood JAKE DUQUE Start: 12-26-2022 Lipid 1996 panel - Serum or Plasma Jake Duque MD Work Phone: Start: 01-10-2022 Lipid 1996 panel - Serum or Plasma Jake Duque MD Work Phone: Start: 01-06-2022 Cystoscopy Jake Duque Work Phone: Start: 12-06-2021 Plain chest X-ray Start: 05-06-2020 Cataract surgery Jake Duque Work Phone: Comment on above: May in both eyes 2020; Start: 07-11-2019 Albumin, Urine Spot Jake Duque Start: 07-11-2019 Assay of prostate specific antigen total Jake Duque Start: 07-11-2019 Comprehensive metabolic 2000 panel Jake Duque Start: 07-11-2019 Cyanocobalamin vitamin b-12 Jake Duque Start: 07-11-2019 Hemoglobin glycosylated a1c Jake Duque Start: 07-11-2019 Lipid panel Jake Duque Start: 07-11-2019 Noninvasive colorectal cancer DNA and occult blood screening [Presence] in Stool Jake Duque Start: 01-24-2010 Colonoscopy Jake Duque Work Phone: Angioplasty of renal artery Jake Duque End: 05-06-2020 Cataract surgery Jake Duque Cholecystectomy Jake Duque End: 01-24-2010 Colonoscopy Jake Duque Esophagogastroduodenoscopy R oger Roland Hernia repair Jake Duque Placement of stent i n coronary artery Jake Duque Repair of shoulder Jake Bateman triny Vasectomy Jake Duque Plan of Treatment Date Care Activity Detail Author Start: 07-10-2027 DTaP/Tdap/Td Vaccine s (2 - Td or Tdap) DTaP/Tdap/Td Vaccines (2 - Td or Tdap) [facility] Start: 01-19-2025 Lipid panel Lipid Panel [facility] Start: 07-19-2024 End: 01-19-2025 Comprehensive metabolic 2000 panel - Serum or Plasma Comprehensive metabolic panel Lab Routine 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) Expected: 07/19/2024 (Approximate), Expires: 01/19/2025 [facility] Service Area Work Phone: Comment on above: Expected: 07/19/2024 (Approximate), Expires: 01/19/2025 Start: 07-19-2024 End: 01-19-2025 Hemoglobin A1c/Hemoglobin.total in Blood Hemoglobin A1c Lab Routine 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) Expected: 07/19/2024 (Approximate), Expires: 01/19/2025 [facility] Work Phone: Comment on above: Expected: 07/19/2024 (Approximate), Expires: 01/19/2025 Start: 02-26-2024 COVID-19 Vaccine () COVID-19 Vaccine () [facility] Start: 01-20-2024 End: 01-20-2024 Patient encounter procedure 01/20/2024 3:00 PM EST Office Visit [facility] [address] [phone] Jake Duque MD [address] [facility] [address] [place] [address] [facility] Start: 01-20-2024 End: 07-19-2024 CBC panel - Blood by Automated count CBC Lab Routine 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) Expected: 01/20/2024 (Approximate), Expires: 07/19/2024 [facility] Service Area Work Phone: Comment on above: Expected: 01/20/2024 (Approximate), Expires: 07/19/2024 Start: 01-20-2024 End: 07-19-2024 Cobalamin (Vitamin B12) [Mass/volume] in Serum or Plasma Vitamin B12 Lab Routine 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) Expected: 01/20/2024 (Approximate), Expires: 07/19/2024 [facility] Work Phone: Comment on above: Expected: 01/20/2024 (Approximate), Expires: 07/19/2024 Start: 01-20-2024 End: 07-19-2024 Comprehensive metabolic 2000 panel - Serum or Plasma Comprehensive Metabolic Panel Lab Routine 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) Expected: 01/20/2024 (Approximate), Expires: 07/19/2024 [facility] Work Phone: Comment on above: Expected: 01/20/2024 (Approximate), Expires: 07/19/2024 Start: 01-20-2024 End: 07-19-2024 Hemoglobin A1c/Hemoglobin.total in Blood Hemoglobin A1C Lab Routine 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) Expected: 01/20/2024 (Approximate), Expires: 07/19/2024 [facility] Work Phone: Comment on above: Expected: 01/20/2024 (Approximate), Expires: 07/19/2024 Start: 01-20-2024 End: 07-19-2024 Lipid 1996 panel - Serum or Plasma Lipid Panel Lab Routine Hypercholesterolemia Expected: 01/20/2024 (Approximate), Expires: 07/19/2024 [facility] Work Phone: Comment on above: Expected: 01/20/2024 (Approximate), Expires: 07/19/2024 Start: 01-20-2024 End: 07-19-2024 Prostate specific Ag [Mass/volume] in Serum or Plasma Prostate Specific Antigen Lab Routine Prostate cancer (Multi) Expected: 01/20/2024 (Approximate), Expires: 07/19/2024 [facility] Work Phone: Comment on above: Expected: 01/20/2024 (Approximate), Expires: 07/19/2024 Start: 12-27-2023 Lipid panel Lipid Panel [facility] Start: 11-07-2023 Influenza vaccination Influenz a Vaccine (Season Ended) [facility] Start: 10-02-2023 Hemoglobin A1c measurement Diabetes: Hemoglobin A1C [facility] Start: 07-27-2023 End: 07-27-2023 Patient encounter procedure 07/27/2023 3:00 PM EDT Office Visit [facility] [address] [place] [phone] Jake Duque MD [address] [facility], [address] [place] [address] [facility] Start: 07-23-2023 End: 02-24-2024 Comprehensive metabolic 2000 panel - Serum or Plasma Comprehensive Metabolic Panel Lab Routine 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 (CMS/HCC) Expected: 07/23/2023 (Approximate), Expires: 02/24/2024 [facility] Service Area Work Phone: Comment on above: Expected: 07/23/2023 (Approximate), Expires: 02/24/2024 Start: 07-23-2023 End: 02-24-2024 Hemoglobin A1c/Hemoglobin.total in Blood Hemoglobin A1C Lab Routine 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 (CMS/HCC) Expected: 07/23/2023 (Approximate), Expires: 02/24/2024 [facility] Work Phone: Comment on above: Expected: 07/23/2023 (Approximate), Expires: 02/24/2024 Start: 03-28-2023 Hemoglobin A1c measurement Diabetes: Hemoglobin A1C [facility] Start: 02-16-2023 End: 02-16-2023 Patient encounter procedure 02/16/2023 4:00 PM EST Office Visit [facility] [address] [place] [id number] Jake Duque MD [address] [facility], [address] [place] [address] [facility] Start: 01-10-2023 Lipid panel Lipid Panel [facility] Start: 01-07-2023 End: 07-08-2023 CBC panel - Blood by Automated count CBC Lab Routine 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 (CMS/HCC) Expected: 01/07/2023 (Approximate), Expires: 07/08/2023 [facility] Work Phone: Comment on above: Expected: 01/07/2023 (Approximate), Expires: 07/08/2023 Start: 01-07-2023 End: 07-08-2023 Comprehensive metabolic 2000 panel - Serum or Plasma Comprehensive Metabolic Panel Lab Routine 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 (CMS/HCC) Expected: 01/07/2023 (Approximate), Expires: 07/08/2023 [facility] Work Phone: Comment on above: Expected: 01/07/2023 (Approximate), Expires: 07/08/2023 Start: 01-07-2023 End: 07-08-2023 Hemoglobin A1c/Hemoglobin.total in Blood Hemoglobin A1C Lab Routine 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 (CMS/HCC) Expected: 01/07/2023 (Approximate), Expires: 07/08/2023 [facility] Work Phone: Comment on above: Expected: 01/07/2023 (Approximate), Expires: 07/08/2023 Start: 01-07-2023 End: 07-08-2023 Lipid 1996 panel - Serum or Plasma Lipid Panel Lab Routine Hypercholesterolemia Expected: 01/07/2023 (Approximate), Expires: 07/08/2023 [facility] Work Phone: Comment on above: Expected: 01/07/2023 (Approximate), Expires: 07/08/2023 Start: 01-07-2023 End: 07-08-2023 Magnesium [Mass/volume] in Serum or Plasma Magnesium Lab Routine 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 (CMS/HCC) Expected: 01/07/2023 (Approximate), Expires: 07/08/2023 [facility] Work Phone: Comment on above: Expected: 01/07/2023 (Approximate), Expires: 07/08/2023 Start: 01-07-2023 End: 07-08-2023 Prostate specific Ag [Mass/volume] in Serum or Plasma PSA Lab Routine Prostate cancer ([facility]/HCC) Expected: 01/07/2023 (Approximate), Expires: 07/08/2023 [facility] Service Area Work Phone: Comment on above: Expected: 01/07/2023 (Approximate), Expires: 07/08/2023 Start: 01-07-2023 End: 07-08-2023 TSH with reflex to Free T4 if abnormal TSH with reflex to Free T4 if abnormal Lab Routine Primary hypertension Expected: 01/07/2023 (Approximate), Expires: 07/08/2023 [facility] Work Phone: Comment on above: Expected: 01/07/2023 (Approximate), Expires: 07/08/2023 Start: 11-06-2022 COVID-19 Vaccine ( season) COVID-19 Vaccine ( season) [facility] Start: 11-06-2022 Influenza vaccination [facility] Start: 07-07-2022 EPV, Provider: Jake Duque, Status: Pen, Time: 3:30 PM EPV, Provider: Jake Duque, Status: Pen, Time: 3:30 PM [facility] Work Phone: Start: 04-12-2022 Hemoglobin A1c measurement Diabetes: Hemoglobin A1C [facility] Start: 01-13-2022 EPV, Provider: Jake Duque, Status: Pen, Time: 3:30 PM EPV, Provider: Jake Duque, Status: Pen, Time: 3:30 PM [facility] Work Phone: Start: 07-11-2021 EPV, Provider: Jake Duque, Status: Pen, Time: 2:30 PM EPV, Provider: Jake Duque, Status: Pen, Time: 2:30 PM [facility] Work Phone: Start: 01-25-2021 COVID-19 Vaccine (4 - Booster for Pfizer series) COVID-19 Vaccine (4 - Booster for Pfizer series) [facility] Start: 01-25-2021 COVID-19 Vaccine (4 - Pfizer series) COVID-19 Vaccine (4 - Pfizer series) [facility] Start: 01-09-2021 EPV, Provider: Jake Duque, Status: Pen, Time: 2:00 PM EPV, Provider: Jake Duque, Status: Pen, Time: 2:00 PM [facility] Work Phone: Start: 01-08-2021 Assay of prostate specific antigen total Prostate Specific Antigen [facility] Work Phone: Start: 01-08-2021 CBC W Auto Differential panel - Blood Complete Blood Count [facility] Work Phone: Start: 01-08-2021 Comprehensive metabolic 2000 panel - Serum or Plasma Comprehensive Metabolic Panel [facility] Work Phone: Start: 01-08-2021 Cyanocobalamin vitam in b-12 Vitamin B12, Serum [facility] Work Phone: Start: 01-08-2021 Hemoglobin glycosylated a1c Hemoglobin A1C [facility] Work Phone: Start: 01-08-2021 Lipid panel Lipid Panel [facility] Work Phone: Start: 01-05-2021 Urine screening for protein Diabetes: Urine Protein Screening [facility] Start: 07-08-2020 Assay of prostate specific antigen total Prostate Specific Antigen [facility] Work Phone: Start: 07-08-2020 CBC W Auto Differential panel - Blood Complete Blood Count [facility] Work Phone: Start: 07-08-2020 Comprehensive metabolic 2000 panel - Serum or Plasma Comprehensive Metabolic Panel [facility] Work Phone: Start: 07-08-2020 Cyanocobalamin vitam in b-12 Vitamin B12, Serum [facility] Work Phone: Start: 07-08-2020 Hemoglobin glycosylated a1c Hemoglobin A1C [facility] Work Phone: Start: 07-08-2020 Lipid panel Lipid Panel [facility] Work Phone: Start: 01-11-2020 Assay of prostate specific antigen total Prostate Specific Antigen [facility] Work Phone: Start: 01-11-2020 Cobalamin (Vitamin B12) [Mass/Vol] Vitamin B12, Serum [facility] Work Phone: Start: 01-11-2020 Comprehensive metabolic 2000 panel [facility] Work Phone: Start: 01-11-2020 HbA1c (Bld) [Mass fraction] Hemoglobin A1C [facility] Work Phone: Start: 01-11-2020 Lipid panel Lipid Panel [facility] Work Phone: Start: 11-06-2017 Influenza vaccination SEQUENTI AL INFLUENZA VACCINE (#1) [facility] Start: 2007 Pneumococcal vaccination PNEUMOCOCCAL VACCINE AGE 65+ (1 of 2 - PCV13) [facility] Start: 2002 RSV patient s and/or patients aged 60+ years (1 - 1-dose 60+ series) RSV patients and/or patients aged 60+ years (1 - 1-dose 60+ series) [facility] Start: 2002 Zoster vaccine hzv live for subcutaneous use ZOSTER VACCINE [facility] Start: 1992 Zoster Vaccines (1 o f 2) Zoster Vaccines (1 of 2) [facility] Start: 1952 Diabetic foot examination Diabetes: Foot Exam [facility] Start: 1952 Glaucoma screening Diabetes: R etinopathy Screening [facility] Start: 1952 Ophthalmic examinati on and evaluation Diabetes: Retinopathy Screening [facility] Start: 1942 Examination of skin Derm Melanoma Sk in Check [facility] Start: 1942 Screening colonoscopy [facility] Start: 1942 Tetanus vaccination TETANUS EVERY 10 YR [facility] Start: 1942 Yearly Adult Physical Yearly Adult P [facility] Patient Education ED Chest Pain, Noncardiac ED Chest Wall Strain [facility] Work Phone: Patient referral [facility] Work Phone: NEGATED: Highlighted row has been ruled out! Planned Goals not documented [facility] Work Phone: Immunizations Immunization Date Immunization Notes Care Provider Fa cili 01-01-2024 influenza, seasonal, injectable Jake Duque MD Work Phone: [facility] Work Phone: 01-01-2024 Pfizer Purple Cap SARS-CoV-2 Jake Duque MD Work Phone: [facility] Work Phone: 01-01-2024 Respiratory Synctial Virus (Rsv), Unspecified Jake Duque MD Work Phone: [facility] Work Phone: 01-23-2022 Pfizer COVID-19 Vac Bivalent 30 MCG/0.3ML Intramuscular Suspension Jake Duque Work Phone: [facility] Work Phone: Comment on above: Series: 12-01-2021 Fluzone High-Dose Quadrivalent 0.7 ML Intramuscular Suspension Prefilled Syringe Jake Duque Work Phone: [facility] Work Phone: Comment on above: Series: 12-01-2021 influenza virus vacc ine, unspecified formulation Jake Duque MD Work Phone: [facility] Work Phone: 08-24-2021 zoster vaccine recombinant Jake Duque Work Phone: [facility] Work Phone: Comment on above: Series: 08-24-2021 zoster vaccine, live Jake Duque Work Phone: [facility] Work Phone: Comment on above: Series: 06-20-2021 zoster vaccine recombinant Jake Duque Work Phone: [facility] Work Phone: Comment on above: Series: 11-30-2020 influenza, high dose seasonal, preservative-free Jake Duque Work Phone: [facility] Work Phone: Comment on above: Series: 11-30-2020 influenza, seasonal, injectable Jake Rodgersyder Work Phone: [facility] Work Phone: Comment on above: Series: 11-30-2020 Influenza, Seasonal, Quadrivalent, Adjuvanted Jake Duque MD Work Phone: [facility] Work Phone: 11-30-2020 Pfizer-BioNTech COVI D-19 Vacc 30 MCG/0.3ML Intramuscular Suspension Jake Duque Work Phone: [facility] Work Phone: Comment on above: Series: 04-24-2020 Pfizer-BioNTech COVI D-19 Vacc 30 MCG/0.3ML Intramuscular Suspension Jake Duque [facility] Work Phone: Comment on above: Series: 04-03-2020 Pfizer-BioNTech COVI D-19 Vacc 30 MCG/0.3ML Intramuscular Suspension Jakejosé Moralezer [facility] Work Phone: Comment on above: Series: 12-20-2019 influenza virus vacc ine, unspecified formulation Jake Duque Work Phone: [facility] Work Phone: Comment on above: Series: 12-20-2019 influenza, injectabl e, quadrivalent, preservative free Jake Duque MD Work Phone: [facility] Work Phone: 12-20-2019 influenza, seasonal, injectable Jake Duque [facility] Work Phone: Comment on above: Series: 12-20-2019 influenza, seasonal, injectable Jake Duque [facility] Work Phone: 01-06-2019 influenza, seasonal, injectable Jake Duque [facility] Work Phone: Comment on above: Series: 12-24-2017 influenza virus vacc ine, unspecified formulation; Translations: [influenza virus vaccine, unspecified formulation] Jake Duque [facility] Work Phone: Comment on above: Series: 07-09-2017 tetanus toxoid, redu omaira diphtheria toxoid, and acellular pertussis vaccine, adsorbed Jake Duque [facility] Work Phone: Comment on above: Series: 12-30-2016 influenza virus vacc ine, live, attenuated, for intranasal use Jake Duque MD Work Phone: [facility] Work Phone: 07-14-2016 pneumococcal conjuga te vaccine, 13 valent Jake Duque [facility] Work Phone: Comment on above: Series: 01-19-2011 pneumococcal polysaccharide vaccine, 23 valent Jake Duque [facility] Work Phone: Comment on above: Series: Payers Date Payer Category Payer Managed Care (Private) [facility] [id number] 2023 Private Health Insurance [id number] 2023 Private Health Insurance [id number] 2021 Medicare [id number] 2021 Self-pay [id number] 2015 Medicare supplementa l policy (as second payer) [facility]A MEDICARE SUPPLEMENT [id number] 2015 Private Health Insurance [id number] 2011 Private Health Insurance 2011 Private Health Insurance [id number] 1942 Unknown [id number] 1942 Unknown [id number] 1942 Unknown [id number] 1942 Unknown [id number] 1942 Unknown [id number] 1942 Unknown [id number] 1942 Unknown [id number] 1942 Unknown [id number] Unknown Unknown [id number] Social History Date Type Detail Facility Start: 09-13-2017 End: 07-20-2023 Tobacco smoking status [facility] Former smoker [facility] Sex Assigned At Not on file [facility] Start: 07-07-2022 End: 01-11-2023 No recent foreign travel No recent foreign travel [facility] Work Phone: Start: 12-06-2021 Tobacco smoking status [facility] Unknown if ever smoked [facility] Work Phone: Start: 12-06-2021 None [facility] Work Phone: Start: 12-06-2021 Non-smoker [facility] Work Phone: Start: 1940 Sex Assigned At Male [facility] Start: 03-08-1954 End: 03-08-1964 History of tobacco use Current smoker [facility] Work Phone: Start: 03-08-1954 End: 03-08-1964 History of tobacco use Cigarette Smoker [facility] Work Phone: Start: 07-07-2022 End: 07-20-2023 Tobacco use and exposure Smokeless tobacco non-user [facility] Work Phone: Start: 07-07-2022 Alcohol intake Lifetime non-d marii (finding) [facility] Work Phone: Start: 07-07-2022 End: 01-11-2023 Tobacco use panel [facility] Work Phone: Start: 07-05-2022 Gender identity Identifies as male gender (finding) [facility] Work Phone: Start: 06-27-2022 End: 01-20-2024 Exposure to SARS-CoV-2 (event) Not sure [facility] Start: 01-11-2023 End: 01-20-2024 Alcohol intake Ex-drinker (finding) [facility] Work Phone: NEGATED: Highlighted row - - [facility] Work Phone: Functional Status Date Assessment Result Facility NEGATED: Highlighted row Functional performance Functional status health issues are not documented Disease [facility] Work Phone: Mental Status Date Assessment Result Facility 12-06-2021 Cognitive function Awake;Alert;A ppropria te;Inappropriate [facility] Work Phone: NEGATED: Highlighted row Cognitive function [Interpretation] Cognitive status health issues are not documented Disease [facility] Work Phone: Clinical Notes 01-09-2021 to 01-20-2024 Jake Duque MD - 01/20/2024 3:00 PM Isis Duque MD - 07/20/2023 3:00 PM Rodrick Duque MD - 02/23/2023 2:30 PM Isis Duque MD - 01/11/2023 3:30 PM ESTPatient Instructions Note Date & Type Note Facility 01-20-2024 History of Present illness Narrative Subjective Patient ID: All Young III is a 83 y.o. male who presents for Med Management. HPI Bilateral renal cysts - no blood or pain. GFR 85 last year early in year and then , 65 last fall and in the spring 43 with creatinine of 1.59. Now 50. states he is not drinking much fluids at all. He does not like to drink to issues with leaking and urgency. Pullups Kidney stone - no pain or blood. BPH and urge in continence. - cath no longer needed. Pullups now so not really nocturia. CERVICAL SPONDYLOSIS WITHOUT MYELOPATHY - has been doing well CORONARY ATHEROSCLEROSIS and HTN - No Chest pain, Dyspnea, palpitations, numbness, weakness, edema, claudications, or double vision/ loss of vision. notes he does get fatigued easily and then notes weakness in legs. Works out less and does not need nitro in over a year. No treadmill or long walks for over a year. BP good. Exhausted after a block. After flying he will need a couple days to recover. CMP except GFR good. Diabetes mellitus, type II - has been on metformin at 2 per day. A1C down to 6.3% and did drop to 500 mg per day. Less active and appetite is down. Since last year was 175 to 163 and now 151. Does not accept Ensure. Can try protein in shakes. Seems to going along with memory issues. No polyphagia, polydipsia, polyuria. States in August had pressure sore, used [place] and it cleared, but notes today he still has the sore. Numb in feet but not any worse. CMP is normal. A1C pending. Painful diabetic neuropathy - The discoloration has improved. No soreness or pain Better now. No longer sensitive to touch tips of toes. Diabetic socks. Hiatal hernia - No HB, Melena, dysphagia, or hematochezia. Did stop PPI. Eating is down with memory issues. Does have early satiety, but no indigestion. History of basal cell carcinoma excision - Dr Clement in March. Did cryo on a few spots Hypercholesterolemia Med works well without side effects. . Low back pain - still but not too bad with limited activity. Vascular dementia - MRI showed some microvascular disease. The memory seems to be worse. Gets confused easily. Some issues with pulling up words. Struggles to find Bathroom. Names not as good. Knows but name occasionally forgets name. Knows she is his . When flying he was disoriented for travel. [place] score was 4 and then 16 last year. Now 22. Not driving. Less of the rest tremor. notes there is camera at home when she is at work to monitor him and both states he feels safe at home. Namenda and Aricept. She did try off of Aricept and was worse. Will consider again in future. Does see some people who are not there. Knows they are not there. Does have issues with nights when he cannot settle to rest. Can try some Ativan for those nights. PDMP clear.. No CSA and UDS since will be limited Prostate cancer - Had radiation seeds. Annual checkups. That was over 10 years ago. PSA not detectable last time. Off the oxybutynin. Pseudophakia successful in both eyes. Pressure ulcer still small on coccyx Cologuard 07/25/19 no longer needed PSA 12/26/22 Influenza today Pneumonia and shingles UTD LW and JOHN Young, Albert Macdonald Review of Systems Objective BP 118/77 (BP Location: Left arm, Patient Position: Sitting) Pulse 77 Wt 68.5 kg (151 lb) SpO2 96% BMI 22.63 kg/m Physical Exam Vitals reviewed. Constitutional: General: He is not in acute distress. Appearance: Normal appearance. He is normal weight. Comments: Able to tell current condition and some symptoms he deals with. 6 CIT score 22. Not able to do sequences this time HENT: Head: Normocephalic. Right Ear: Tympanic membrane, ear canal and external ear normal. Left Ear: Tympanic membrane, ear canal and external ear normal. Nose: Nose normal. Mouth/Throat: Pharynx: Oropharynx is clear. Eyes: Extraocular Movements: Extraocular movements intact. Conjunctiva/sclera: Conjunctivae normal. Pupils: Pupils are equal, round, and reactive to light. Neck: Vascular: No carotid bruit. Cardiovascular: Rate and Rhythm: Normal rate and regular rhythm. Pulses: Normal pulses. Heart sounds: Normal heart sounds. No murmur heard. Pulmonary: Effort: Pulmonary effort is normal. No respiratory distress. Breath sounds: Normal breath sounds. Abdominal: General: Abdomen is flat. Bowel sounds are normal. There is no distension. Palpations: Abdomen is soft. There is no mass. Tenderness: There is no abdominal tenderness. Musculoskeletal: Cervical back: Normal range of motion and neck supple. No tenderness. Lymphadenopathy: Cervical: No cervical adenopathy. Skin: General: Skin is warm and dry. Findings: No rash. Neurological: General: No focal deficit present. Mental Status: He is alert and oriented to person, place, and time. Psychiatric: Mood and Affect: Mood normal. Thought Content: Thought content normal. Judgment: Judgment normal. Assessment/Plan Diagnoses and all orders for this visit: Insomnia due to medical condition - LORazepam (Ativan) 0.5 mg tablet; Take 1 tablet (0.5 mg) by mouth 2 times a day as needed for anxiety. 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) - Follow Up In Primary Care - Established - Comprehensive metabolic panel; Future - Hemoglobin A1c; Future Hypercholesterolemia - atorvastatin (Lipitor) 40 mg tablet; Take 1 tablet (40 mg) by mouth once daily. Primary hypertension - enalapril (Vasotec) 10 mg tablet; Take 1 tablet (10 mg) by mouth once daily. - hydroCHLOROthiazide (Microzide) 12.5 mg capsule; Take 1 capsule (12.5 mg) by mouth once daily. - metoprolol succinate XL (Toprol-XL) 100 mg 24 hr tablet; Take 1 tablet (100 mg) by mouth once daily. Type 2 diabetes mellitus without complication, without long-term current use of insulin (Multi) - metFORMIN XR 500 mg 24 hr tablet; Take 2 tablets (1,000 mg) by mouth once daily. 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 male who presents for Med Management. HPI Bilateral renal cysts - no blood or pain. GFR 85 a year ago, 65 last time and now 43 with creatinine of 1.59. states he is not drinking much fluids at all. He does not like to drink to issues with leaking and urgency. Pullups Kidney stone - no pain or blood. BPH and urge in continence. - cath no longer needed. Pullups now so not really nocturia. CERVICAL SPONDYLOSIS WITHOUT MYELOPATHY - has been doing well CORONARY ATHEROSCLEROSIS and HTN - No Chest pain, Dyspnea, palpitations, numbness, weakness, edema, claudications, or double vision/ loss of vision. notes he does get fatigued easily and then notes weakness in legs. Works out less and does not need nitro in over a year. No treadmill or long walks for over a year. BP good. Exhausted after a block. After flying he will need a couple days to recover. Diabetes mellitus, type II - has been on metformin at 2 per day. A1C down to 6.3% will drop to 500 mg per day . Less active and appetite is down. Since last year was 175 to 163 and now 154. Does not accept Ensure. Can try protein in shakes. Seems to going along with memory issues. No polyphagia, polydipsia, polyuria. States in August had pressure sore, used [place] and it cleared, but notes today he still has the sore. Numb in feet but not any worse. CMP is normal. Painful diabetic neuropathy - The discoloration has improved. No soreness or pain Better now. No longer sensitive to touch tips of toes. Diabetic socks. Hiatal hernia - No HB, Melena, dysphagia, or hematochezia. Did stop PPI. Eating is down with memory issues. Does have early satiety, but no indigestion. History of basal cell carcinoma excision - Dr Clement in March. Did cryo on a few spots Hypercholesterolemia Med works well without side effects. Lipid panel 12/26/22. Low back pain - still but not too bad with limited activity. Vascular dementia - MRI showed some microvascular disease. The memory seems to be worse. Gets confused easily. . Some issues with pulling up words. Names not as good. When flying he was disoriented for travel. Six Cit score was 4 and then 16 last year. . At end of sequences he seems to fatigue and struggle more. Not driving as he has gotten lost. Has a bit of at rest tremor. notes there is camera at home when she is at work to monitor him and both states he feels safe at home. Namenda and Aricept. She left him on Aricept but was wanting to discuss if he needed to still be on it. She states she has not noticed any improvement or side effects from it. States he has been on this since September. Noticed when started he became more sleepy, and states this is not present anymore. Does see some people who are not there. Prostate cancer - Had radiation seeds. Annual checkups. That was over 10 years ago. PSA not detectable last time. Off the oxybutynin. Pseudophakia successful in both eyes. Cologuard 07/25/19 PSA 12/26/22 Influenza today Pneumonia and shingles UTD LW and JOHN Young, Albert Macdonald Review of Systems Objective BP 122/72 (BP Location: Right arm, Patient Position: Sitting) Pulse 72 Ht 1.74 m (5' 8.5) Wt 69.9 kg (154 lb) SpO2 96% BMI 23.08 kg/m Physical Exam Vitals reviewed. Constitutional: General: He is not in acute distress. Appearance: Normal appearance. He is normal weight. Comments: Oriented to year but not the month Pleasant but supplements history and corrects some Tends to lose train of thought HENT: Head: Normocephalic. Right Ear: Tympanic membrane, ear canal and external ear normal. Left Ear: Tympanic membrane, ear canal and external ear normal. Nose: Nose normal. Mouth/Throat: Mouth: Mucous membranes are moist. Pharynx: Oropharynx is clear. Eyes: Extraocular Movements: Extraocular movements intact. Conjunctiva/sclera: Conjunctivae normal. Pupils: Pupils are equal, round, and reactive to light. Neck: Vascular: No carotid bruit. Cardiovascular: Rate and Rhythm: Normal rate and regular rhythm. Pulses: Normal pulses. Heart sounds: Normal heart sounds. No murmur heard. Pulmonary: Effort: Pulmonary effort is normal. No respiratory distress. Breath sounds: Normal breath sounds. Abdominal: General: Abdomen is flat. Bowel sounds are normal. There is no distension. Palpations: Abdomen is soft. There is no mass. Tenderness: There is no abdominal tenderness. Musculoskeletal: Cervical back: Normal range of motion and neck supple. No tenderness. Lymphadenopathy: Cervical: No cervical adenopathy. Skin: General: Skin is warm and dry. Findings: No rash. Neurological: General: No focal deficit present. Mental Status: He is alert and oriented to person, place, and time. Psychiatric: Mood and Affect: Mood normal. Thought Content: Thought content normal. Judgment: Judgment normal. 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 (Multi) Hiatal hernia 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) - CBC; Future - Comprehensive Metabolic Panel; Future - Hemoglobin A1C; Future - Vitamin B12; Future - Follow Up In Primary Care - Established; Future Hypercholesterolemia - Lipid Panel; Future Malignant neoplasm of skin 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, psychotic disturbance, mood disturbance, or anxiety (Multi) Prostate cancer (Multi) - Prostate Specific Antigen; Future Pseudophakia, both eyes Skin ulcer, limited to breakdown of skin (Multi) Urge incontinence of urine Other orders - Follow Up In Primary Care - Established documented in this encounter [facility] Work Phone: 02-23-2023 History of Present illness Narrative Subjective Patient ID: All Young III is a 82 y.o. male who presents for Follow-up (memory). HPI Last visit tried Remeron for appetite and moods. That made him weak and out of it. So I changed him to Aricept ER 23. Seems to be doing better with moods and appetite. Eating better but had diarrhea the last few days so weight is down again. BMI is 23. 159 this time. No chest pain or racing heart, nausea and vomiting. No breaking open of ulcer on buttocks with trip to [place] DM doing well Review of Systems Objective BP 116/72 (BP Location: Left arm, Patient Position: Sitting) Pulse 69 Wt 72.1 kg (159 lb) SpO2 96% BMI 23.48 kg/m Physical Exam Constitutional: Appearance: Normal appearance. HENT: Mouth/Throat: Comments: Weak voice. Cardiovascular: Rate and Rhythm: Normal rate and regular rhythm. Pulmonary: Effort: Pulmonary effort is normal. No respiratory distress. Breath sounds: Normal breath sounds. No wheezing. Abdominal: General: Abdomen is flat. There is no distension. Palpations: Abdomen is soft. Skin: General: Skin is warm and dry. Neurological: General: No focal deficit present. Mental Status: He is alert and oriented to person, place, and time. Psychiatric: Mood and Affect: Mood normal. Behavior: Behavior normal. Thought Content: Thought content normal. Judgment: Judgment normal. 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 documented in this encounter [facility] Work Phone: 01-11-2023 History of Present illness Narrative Subjective Reason for Visit: All Young III is an 82 y.o. male here for a Medicare Wellness visit. Past Medical, Surgical, and Family History reviewed and updated in chart. Reviewed all medications by prescribing practitioner or clinical pharmacist (such as prescriptions, OTCs, herbal therapies and supplements) and documented in the medical record. HPI Bilateral renal cysts - no blood or pain. GFR 85 last time., this time is 65 with creatine 1.14. states he is not drinking much fluids at all, will start to drink more. Kidney stone - no pain or blood. BPH and urge in continence. - cath every 3-4 nights. Residual is small. Nocturia X 0-1 but not drinking a lot or eating a lot. Now pull ups on confused days. Follows with urologist in [place]. CERVICAL SPONDYLOSIS WITHOUT MYELOPATHY - has been doing well CORONARY ATHEROSCLEROSIS and HTN - No Chest pain, Dyspnea, palpitations, numbness, weakness, edema, claudications, or double vision/ loss of vision. notes he does get fatigued easily and then notes weakness in legs. Works out less and does not need nitro in over a year. No treadmill or long walks for over a year. BP good. Exhausted after a block. Diabetes mellitus, type II - has been on metformin at 4 per day. A1C up a little at 7.1%. Less active and eating off more. Appetite is down, today only ate coffee and granola bar. Since last visit was 175 to 163lb today. Seems to going along with memory issues. No polyphagia, polydipsia, polyuria. States in August had pressure sore, used [place] and it cleared, but notes today he still has the sore. Numb in feet but not any worse. CMP is normal. Painful diabetic neuropathy - The discoloration has improved. No soreness or pain Better now. No longer sensitive to touch tips of toes. Diabetic socks. Has healing ulcer on buttock. Healing Hiatal hernia - No HB, Melena, dysphagia, or hematochezia. Did stop PPI. Eating is down with memory issues. Does have early satiety, but no indigestion. Has pressure ulcer on buttock. CMP WNL History of basal cell carcinoma excision - Dr Clement on September 30. No new lesions. Dermatology annually. Did cryo on a few spots Hypercholesterolemia Med works well without side effects. Lipid panel 12/26/22. Low back pain - still but not too bad with limited activity. Vascular dementia - MRI showed some microvascular disease. The memory seems to be worse. Gets confused easily. . Some issues with pulling up words. Names not as good. When flying he was disoriented for travel. Six Cit score was 4 and then 16 last time. At end of sequences he seems to fatigue and struggle more. Not driving as he has gotten lost. Has a bit of at rest tremor. notes there is camera at home when she is at work to monitor him and both states he feels safe at home. states last time she called in for refill of Namenda he somehow got one namenda and Aricept. She left him on Aricept but was wanting to discuss if he needed to still be on it. She states she has not noticed any improvement or side effects from it. States he has been on this since September. Noticed when started he became more sleepy, and states this is not present anymore. Prostate cancer - Had radiation seeds. Annual checkups. That was over 10 years ago. PSA not detectable this time. Off the oxybutynin. Pseudophakia successful in both eyes. Cologuard 07/25/19 PSA 12/26/22 Influenza today Pneumonia and shingles UTD LW and DPA Yamila Young, Albert Macdonald Patient Care Team: Jake Duque MD as PCP - General Review of Systems Objective Vitals: BP 122/70 (BP Location: Left arm, Patient Position: Sitting) Pulse 73 Wt 73.9 kg (163 lb) SpO2 97% BMI 24.07 kg/m Physical Exam Constitutional: Appearance: Normal appearance. Comments: Most of history from HENT: Head: Normocephalic. Right Ear: Tympanic membrane, ear canal and external ear normal. Left Ear: Tympanic membrane, ear canal and external ear normal. Nose: Nose normal. Mouth/Throat: Mouth: Mucous membranes are moist. Pharynx: Oropharynx is clear. Eyes: Conjunctiva/sclera: Conjunctivae normal. Cardiovascular: Rate and Rhythm: Normal rate and regular rhythm. Pulses: Normal pulses. Heart sounds: Normal heart sounds. Pulmonary: Effort: Pulmonary effort is normal. Breath sounds: Normal breath sounds. Abdominal: General: Bowel sounds are normal. There is no distension. Palpations: Abdomen is soft. Tenderness: There is no abdominal tenderness. Skin: General: Skin is warm and dry. Comments: Right buttocks, there is non-blanchable area with healing scar about 1 cm Neurological: Mental Status: He is alert. Mental status is at baseline. Psychiatric: Mood and Affect: Mood normal. Assessment/Plan Problem List Items Addressed This Visit Problem List Items Addressed This Visit Abnormal weight loss Relevant Medications mirtazapine (Remeron) 15 mg tablet Other Relevant Orders Follow Up In Primary Care - Established Benign prostatic hyperplasia with urinary obstruction Bilateral renal cysts Cervical spondylolysis Coronary atherosclerosis of [place] coronary artery Relevant Medications clopidogrel (Plavix) 75 mg tablet metoprolol succinate XL (Toprol-XL) 100 mg 24 hr tablet 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 (CMS/HCC) Hiatal hernia Hypercholesterolemia Relevant Medications atorvastatin (Lipitor) 40 mg tablet Hypertension Relevant Medications enalapril (Vasotec) 10 mg tablet hydroCHLOROthiazide (Microzide) 12.5 mg capsule metoprolol succinate XL (Toprol-XL) 100 mg 24 hr tablet Malignant neoplasm of skin 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 Stop Aricept. Try Remeron for appetite. Patient initially seen by Melody Dunham [employer] student. I reviewed history and examined patient independently and updated as needed. documented in this encounter [facility] Work Phone: 07-07-2022 History of Present illness Narrative Subjective Patient ID: All Young III is a 82 y.o. male who presents for Med Management. HPI Bilateral renal cysts - no blood or pain. GFR 85 last time. BPH and urge in continence. - cath every 3 nights. Residual is small. Nocturia X 0-1 but not drinking a lot or eating a lot. Now pull ups on confused days CERVICAL SPONDYLOSIS WITHOUT MYELOPATHY - has been doing well CORONARY ATHEROSCLEROSIS and HTN - No Chest pain, Dyspnea, palpitations, numbness, weakness, edema, claudications, or double vision/ loss of vision. Works out less and does not need nitro in over a year. No treadmill or long walks for over a year. BP good. Exhausted after a block Diabetes mellitus, type II - has been on metformin at 4 per day. A1C had dropped from 8.2 to 6.9%. Less active and eating off more. Appetite is down but weight is up this time about 6. Seems to going along with memory issues. No polyphagia, polydipsia, polyuria, or non-healing sores.. Numb in feet but no longer pain Hiatal hernia - No HB, Melena, dysphagia, or hematochezia. Can stop PPI. Eating is down with memory issues but no indigestion or early satiety. Weight loss has helped History of basal cell carcinoma excision - Dr Clement on September 30. No new lesions. Dermatology annually. Did cryo on a few spots Hypercholesterolemia Med works well without side effects last year. Kidney stone - no pain or blood. Low back pain - still but not too bad with limited activity. Work outside with lawn and gardens has been good. Vascular dementia - MRI showed some microvascular disease. The memory seems to be worse. Gets confused easily. . Some issues with pulling up words. Names not as good. When flying he was disoriented for travel. Six [place] score was 4 and then 16. At end of sequences he seems to fatigue and struggle more. Not driving as he has gotten lost. Has a bit of at rest tremor. Painful diabetic neuropathy - The discoloration has improved. No soreness or pain Better now. No longer sensitive to touch tips of toes. Diabetic socks. Prostate cancer - Robotic adhesion removal after radiation. Annual checkups. That was over 10 years ago. PSA not detectable last time. Off the oxybutynin. Pseudophakia successful in both eyes Cologuard 07/25/19 PSA 01/10/22 Review of Systems Objective BP 110/78 (BP Location: Left arm, Patient Position: Sitting) Pulse 79 Ht 1.753 m (5' 9) Wt 79.4 kg (175 lb) SpO2 96% BMI 25.84 kg/m Physical Exam General: Alert and oriented, No acute distress. Less animated than in the past . Eye: Pupils are equal, round and reactive to light, Extraocular movements are intact, Normal conjunctiva. HENT: Tympanic membranes are clear, Normal hearing, Oral mucosa is moist. Nose: Both nostrils, Within normal limits. Sinus: Bilateral, Frontal sinus, Maxillary sinus, No tenderness. Throat: Pharynx (Not erythematous, No exudate ). Neck: Supple, Non-tender, No carotid bruit, No jugular venous distention, No lymphadenopathy, No thyromegaly. Carotid pulse: Bilaterally, Strong. Respiratory: Lungs are clear to auscultation, Respirations are non-labored, Breath sounds are equal, Symmetrical chest wall expansion. Cardiovascular: Normal rate, Regular rhythm, No murmur, No gallop, Good pulses equal in all extremities, No edema. Gastrointestinal: Soft, Non-tender, Non-distended, No organomegaly. Bowel sounds: All four quadrants, Present, No bruit present. Integumentary: Warm, Dry, [place]. Psychiatric: Cooperative, Appropriate mood & affect, Normal judgment. Behavior: No pressured speech. Judgment: Able to make sensible decisions. Thought process: Appropriate. Low back not tender but tight with extension. 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 ([facility]/HCC) Relevant Orders CBC Comprehensive Metabolic Panel Hemoglobin A1C Magnesium Hiatal hernia Hypercholesterolemia Relevant Orders Lipid Panel Hypertension Relevant Orders TSH with reflex to Free T4 if abnormal Low back pain Malignant neoplasm of skin 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 Risk prevention instructions provided. He was in the yard. Stumbled due to slow reflexes. When having more confusion. No injury documented in this encounter [facility] Work Phone: 07-07-2022 Instructions Jake Duque MD - 07/07/2022 3:30 PM EDT Ways to Help Prevent Falls at Home Quick Tips ? Ask for help if you need it. Most people want to help! ? Get up slowly after sitting or laying down ? Wear a medical alert device or keep cell phone in your pocket ? Use night lights, especially areas near a bathroom ? Keep the items you use often within reach on a small stool or end table ? Use an assistive device such as walker or cane, as directed by provider/physical therapy ? Use a non-slip mat and grab bars in your bathroom. Look for home health sections for best options Other Areas to Focus On ? Exercise and nutrition: Regular exercise or taking a falls prevention class are great ways improve strength and balance. Don t forget to stay hydrated and bring a snack! ? Medicine side effects: Some medicines can make you sleepy or dizzy, which could cause a fall. Ask your healthcare provider about the side effects your medicines could cause. Be sure to let them know if you take any vitamins or supplements as well. ? Tripping hazards: Remove items you could trip on, such as loose mats, rugs, cords, and clutter. Wear closed toe shoes with rubber soles. ? Health and wellness: Get regular checkups with your healthcare provider, plus routine vision and hearing screenings. Talk with your healthcare provider about: o Your medicines and the possible side effects - bring them in a bag if that is easier! o Problems with balance or feeling dizzy o Ways to promote bone health, such as Vitamin D and calcium supplements o Questions or concerns about falling *Ask your healthcare team if you have questions [facility] 2021 documented in this encounter [facility] Work Phone: 01-13-2022 History of Present illness Narrative 01/13/22Memory loss - MRI showed some microvascular disease. The memory seems to be worse. Gets confused easily. . Some issues with pulling up words. Names not as good. When flying he was disoriented for travel. Six Cit score was 4 and now 16. So has dementia. . At end of sequences he seems to fatigue and struggle more. Not driving as he has gotten lost. Has a bit of at rest tremor.Start on memantine 10 bid02/17/22He has noted that at first he noted nothing. Then noted less emotional on it. The confusion seems to be better. Will forget where he going and then self correct. No side effects. No Chest pain, Dyspnea, palpitations, numbness, weakness, edema, claudication, or double vision/ loss of vision. Did have some swelling when driving to [place] after a long drive without walks.Having some leaking urine that is better on the medication. [facility] Work Phone: 01-09-2021 History of Present illness Narrative Bilateral renal cysts - no blood or pain.BPH - cath every 2-3 night. Residual is small. Nocturia X0-1 but not drinking a lot or eating a lot. . Thin pads work well enough.CERVICAL SPONDYLOSIS WITHOUT MYELOPATHY - has been doing wellCORONARY ATHEROSCLEROSIS - No Chest pain, Dyspnea, palpitations, numbness, weakness, edema, claudications, or double vision/ loss of vision. Works out less and does not need nitro in over a year. No treadmill or long walks for over a year. Will drop Metoprolol to 1 tablet daily from 1.5Diabetes mellitus, type II - has been on metformin at 4 per day. A1C had dropped from 8.2 to 7.2. Less active and eating off more. . Appetite is down a bit and weight is down 23 pounds in 2 years. Seems to going along with memory issues. No recent checks at home. Can take Boost 1-2 per day. No polyphagia, polydipsia, polyuria, or non-healing soresHiatal hernia - No HB, Melena, dysphagia, or hematochezia. On PPI only Eating is down with memory issues but no indigestion or early satietyHistory of basal cell carcinoma excision - Dr Clement in September 30. No new lesions. Dermatology annually. Did cryo on a few spotsHypercholesterolemia Med works well without side effects this time.Kidney stone - no pain or blood.Low back pain - still but not too bad with limited activity. Work outside with lawn and gardens has been good.Memory loss - MRI showed some microvascular disease. The memory seems to be about the same. Some issues with pulling up words. Names OK. 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 Last day is tomorrow. When flying he was disoriented for travel.Painful diabetic neuropathy - The discoloration has improved. No soreness or pain Better now. No longer sensitive to touch tips of toes .Prostate cancer - Robotic adhesion removal after radiation. Annual checkups. That was over 10 years ago. PSA not detectable this time. 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 (CMS/HCC) Hiatal hernia Diaphragmatic hernia without mention of obstruction or gangrene Hypercholesterolemia Pure hypercholesterolemia Primary hypertension Unspecified essential hypertension Chronic bilateral low back pain without sciatica 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, psychotic disturbance, mood disturbance, or anxiety (CMS/HCC) Malignant neoplasm of skin Other malignant neoplasm of skin, site unspecified Pseudophakia, both eyes Lens replaced by other means Urge incontinence of urine Urge incontinence documented in this encounter [facility] Work Phone: Evaluation note* Diagnosis Routine general medical examination at health care facility- Primary Routine general medical examination at a health care facility 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, psychotic disturbance, mood disturbance, or anxiety (CMS/HCC) Hypercholesterolemia Pure hypercholesterolemia Atherosclerosis of [place] coronary artery of [place] heart with stable angina pectoris (CMS/HCC) Primary hypertension Unspecified essential hypertension Pseudophakia, both eyes Lens replaced by other means Hiatal hernia Diaphragmatic hernia without mention of obstruction or gangrene Benign prostatic hyperplasia with urinary obstruction Bilateral renal cysts 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 Urge incontinence Malignant neoplasm of skin Other malignant neoplasm of skin, site unspecified Prostate cancer (CMS/HCC) Malignant neoplasm of prostate 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 (CMS/HCC) Abnormal weight loss Loss of weight Skin ulcer, limited to breakdown of skin (CMS/HCC) documented in this encounter [facility] Work Phone: Evaluation note* Diagnosis 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 (CMS/HCC)- Primary Abnormal weight loss Loss of weight 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, psychotic disturbance, mood disturbance, or anxiety (CMS/HCC) documented in this encounter [facility] Work Phone: Evaluation note* Diagnosis Abnormal weight loss- Primary Loss of weight 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 (CMS-HCC) 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 (Multi) Hiatal hernia Diaphragmatic hernia without mention of obstruction or gangrene 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) Hypercholesterolemia Pure hypercholesterolemia Malignant neoplasm of skin Other malignant neoplasm of skin, site unspecified 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, psychotic disturbance, mood disturbance, or anxiety (Multi) Prostate cancer (Multi) Malignant neoplasm of prostate Pseudophakia, both eyes Lens replaced by other means Skin ulcer, limited to breakdown of skin (Multi) Urge incontinence of urine Urge incontinence documented in this encounter [facility] Work Phone: Evaluation note* Diagnosis 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, 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) Hypercholesterolemia Pure hypercholesterolemia Primary hypertension Unspecified essential hypertension Type 2 diabetes mellitus without complication, without long-term current use of insulin (Multi) Abnormal weight loss Loss of weight Benign prostatic hyperplasia with urinary obstruction Bilateral renal cysts 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 (Multi) Hiatal hernia Diaphragmatic hernia without mention of obstruction or gangrene Chronic bilateral low back pain without sciatica Malignant neoplasm of skin Other malignant neoplasm of skin, site unspecified Prostate cancer (Multi) Malignant neoplasm of prostate Pseudophakia, both eyes Lens replaced by other means 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, psychotic disturbance, mood disturbance, or anxiety Urge incontinence of urine Urge incontinence documented in this encounter [facility] Work Phone: Hospital Discharge instructions Additional Instructions Your work-up does not show any signs of heart damage or lung pathology. I believe your pain is related to muscles in the chest wall. 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, psychotic disturbance, mood disturbance, or anxiety (CMS/[facility]) Procedures Follow Up In Primary Care Jake Duque MD [address] [facility], [facility] [address] [phone] Referral ID Status Reason Start Date Expiration Date V isits Requested Visits Authorized [id number] Authorized 07/07/2022 01/03/2023 1 1 T [facility] Work Phone: reason for referral (narrative)* Consultation (Routine) - Authorized Specialty Diagnoses / Procedures Referred By Contac t Referred To Contact Primary Care Diagnoses Abnormal weight loss Procedures Follow Up In Primary Care - Established Jake Duque MD [address] [facility], [place] [address] Referral ID Status Reason Start Date Expiration Date V isits Requested Visits Authorized [id number] Authorized 01/11/2023 01/11/2024 1 1 [facility] Work Phone: reason for referral (narrative)* Consultation (Routine) - Authorized Specialty Diagnoses / Procedures Referred By Contac t Referred To Contact Primary Care Procedures Follow Up In Primary Care - Established Jake Duque MD [address] [facility], [address] [address] Referral ID Status Reason Start Date Expiration Date V isits Requested Visits Authorized [id number] Authorized 02/23/2023 02/23/2024 1 1 [facility] Work Phone: reason for referral (narrative)* Consultation (Routine) - Authorized Specialty Diagnoses / Procedures Referred By Contac t Referred To Contact Primary Care Diagnoses 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) Procedures Follow Up In Primary Care - Established Jake Duque MD [address] [facility], [place] [id number] Referral ID Status Reason Start Date Expiration Date V isits Requested Visits Authorized [id number] Authorized 07/20/2023 07/19/2024 1 1 [facility] Work Phone: Reason for referral (narrative)* Consultation (Routine) - Authorized Specialty Diagnoses / Procedures Referred By Contac t Referred To Contact Primary Care Procedures Follow Up In Primary Care - Established Jake Duque MD [address] [facility], [place] [address] Phone: tel: fax: Referral ID Status Reason Start Date Expiration Date V isits Requested Visits Authorized [id number] Authorized 01/20/2024 01/19/2025 1 1 [facility] Work Phone: Assessments Diagnosis Coronary artery disease, ang cody presence unspecified, unspecified vessel or lesion type, unspecified whether [place] or transplanted heart Essential hypertension Unspecified essential hypertension Summary Purpose Family History No Family History Records Found Mother Name Dates Details Family history of cardiac di sorder(V17.49, Z82.49) Status:Active Father Name Dates Details Family history of cardiac di sorder(V17.49, Z82.49) Status:Active Mother Name Dates Details Family history of cardiac di sorder(V17.49, Z82.49) Status:Active Father Name Dates Details Family history of cardiac di sorder(V17.49, Z82.49) Status:Active Mother Name Dates Details Family history of cardiac di sorder(V17.49, Z82.49) Status:Active Father Name Dates Details Family history of cardiac di sorder(V17.49, Z82.49) Status:Active Mother Name Dates Details Family history of cardiac di sorder(V17.49, Z82.49) Status:Active Father Name Dates Details Family history of cardiac di sorder(V17.49, Z82.49) Status:Active Unknown Family Member Name Dates Details Family history of cardiac di sorder: Mother, Father(V17.49, Z82.49) Status:Active Unknown Family Member Name Dates Details Family history of cardiac di sorder: Mother, Father(V17.49, Z82.49) Status:Active Unknown Family Member Name Dates Details Family history of cardiac di sorder: Mother, Father(V17.49, Z82.49) Status:Active Unknown Family Member Name Dates Details Family history of cardiac di sorder: Mother, Father(V17.49, Z82.49) Status:Active Unknown Family Member Name Dates Details Family history of cardiac di sorder: Mother, Father(V17.49, Z82.49) Status:Active Unknown Family Member Name Dates Details Family history of cardiac di sorder: Mother, Father(V17.49, Z82.49) Status:Active Advance Directives No Advanced Directives Records Found Advance Directive Response Recorded Date/ Time Living Will Yes December 06 4:12am Power of Horse Riding Coach Or Instructor Yes December 06 022 4:12am Name of Medical Power of Horse Riding Coach Or Instructor Yamila Young December 06, 2021 4:12am Chief Complaint medckfollow up memantine Chief Complaint and Reason for Visit Chief Complaint cp Additional Source Comments Assessment & Plan Note - Ryan Dillard MD - 09/13/2017 1:22 PM EDTAssessment & Plan Note - Ryan Dillard MD - 09/13/2017 1:21 PM EDT Miscellaneous Notes (unrecog nized section and content) Associated Problem(s): Hypertension Doing well, Medications reviewed and will continue current meds Followup 1 year Associated Problem(s): CAD (coronary artery disease) Very rare CP Doing well, Medications reviewed and will continue current meds Followup 1 year Still very activein this encounter (unrecognized sect ion and content) No Status Records FoundNo Status Records FoundNo Status Records FoundNo Status Records FoundNo Status Records FoundNo Status Records FoundNo Status Records FoundNo Status Records Found INFORMATION SOURCE (unrecogn ized section and content) DATE CREATED AUTHOR 07/17/2018 [facility] DATE CREATED AUTHOR AUTHOR'S ORGANIZ ATION 06/24/2020 [facility] DATE CREATED AUTHOR AUTHOR'S ORGANIZ ATION 02/18/2022 [facility] DATE CREATED AUTHOR AUTHOR'S ORGANIZ ATION 04/20/2022 [facility] DATE CREATED AUTHOR AUTHOR'S ORGANIZ ATION 06/19/2022 [facility] DATE CREATED AUTHOR AUTHOR'S ORGANIZ ATION 01/25/2024 [facility] DATE CREATED AUTHOR AUTHOR'S ORGANIZ ATION 07/17/2024 [facility] DATE CREATED AUTHOR AUTHOR'S ORGANIZ ATION 08/12/2024 [facility] Ambulatory Goals (unrecognized section and content) Goals may be documented in a n alternate section Reason for Visit (unrecogniz ed section and content) Reason Comments Med Management Specialty Diagnoses / Procedures Referred By Contac t Referred To Contact Primary Care Procedures Follow Up In Primary Care - Established Jake Duque MD [address] [facility], [place] [address] [place] [id number] Referral ID Status Reason Start Date Expiration Date V isits Requested Visits Authorized [id number] Authorized 02/23/2023 02/23/2024 1 1 Reason Comments Medicare Annual Wellness Visit Initial Specialty Diagnoses / Procedures Referred By Contac t Referred To Contact Primary Care Diagnoses 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, psychotic disturbance, mood disturbance, or anxiety (CMS/HCC) Procedures Follow Up In Primary Care Jake Duque MD [address] [facility], [address] [address] Referral ID Status Reason Start Date Expiration Date Visits Re quested Visits Authorized [id number] Closed 07/07/2022 01/03/2023 1 1 Reason Comments Follow-up memory Specialty Diagnoses / Procedures Referred By Contac t Referred To Contact Primary Care Diagnoses Abnormal weight loss Procedures Follow Up In Primary Care - Established Jake Duque MD [address] [facility], [place] [address] [place] [id number] Referral ID Status Reason Start Date Expiration Date V isits Requested Visits Authorized [id number] Authorized 01/11/2023 01/11/2024 1 1 Specialty Diagnoses / Procedures Referred By Contac t Referred To Contact Primary Care Diagnoses 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) Procedures Follow Up In Primary Care - Established Jake Duque MD [address] [facility], [address] [address] Phone: tel: fax: Referral ID Status Reason Start Date Expiration Date V isits Requested Visits Authorized [id number] Authorized 07/20/2023 07/19/2024 1 1 Care Teams (unrecognized sec tion and content) Policy Checker Relationship Specialty Start Date End Date Jake Duque MD [address] [facility], [address] [phone] PCP - General 11/08/18 Policy Checker Relationship Specialty Start Date End Date Jake Duque MD [address] [facility], [address] [place] [address] PCP - General 11/08/18 Policy Checker Relationship Specialty Start Date End Date Jake Duque MD [address] [facility], [address] [place] [address] PCP - General 11/08/18 Policy Checker Relationship Specialty Start Date End Date Jake Duque MD [address] [facility], [address] [place] [address] PCP - General 11/08/18 Policy Checker Relationship Specialty Start Date End Date Jake Duque MD [address] [facility], [address] [place] [address] PCP - General 11/08/18 FOR RECORDS PERTAINING TO PATIENTS WHO ARE OR HAVE BEEN ENROLLED IN A CHEMICAL DEPENDENCY/SUBSTANCEABUSE PROGRAM, SOME INFORMATION MAY BE OMITTED. This clinical summary was aggregated from multiple sources. Caution should be exercised in using it in the provision of clinical care. This summary normalizes information from multiple sources, and as a consequence, information in this document may materially change the coding, format and clinical context of patient data. In addition, data may be omitted in some cases. CLINICAL DECISIONS SHOULD BE BASED ON THE PRIMARY CLINICAL RECORDS. [facility]. provides no warranty or guarantee of the accuracy or completeness of information in this document.
[2024-08-22 08:47] LABS: Absolute Lymphocyte Count 2.18 X10^3/uL (0.83-4.51); Absolute Neutrophil Count 3.9 X10^3/uL (2.0-7.7); Basophil# 0.04 X10^3/uL; Basophil% 0.6 % (0-1); Eosinophil# 0.14 X10^3/uL; Hemoglobin 13.7 g/dL (13.0-16.5); Lymphocyte # 2.18 X10^3/ul (0.83-4.51); Lymphocyte % 31.1 % (19-41); Mean Corp Hgb Conc 33.4 g/dL (32-36); Mean Corpuscular Volume 89.9 fL (80-94); Mean Platelet Vol. 9.7 fl (6.2-12.0); Monocyte# 0.72 X10^3/uL; Monocyte% 10.3 % (0-10); NRBC Flagged by Analyzer 0 % (0-5); Neutrophil # 3.92 X10^3/uL (2.7-7.7); Neutrophil % 55.7 % (47-70); Platelet Count 180 K/mm3 (150-450); Red Blood Count 4.56 M/mm3 (4.6-6.2)
[2024-08-22 09:12] LABS: Hemoglobin A1c 6.5 % (<=5.6)
[2024-08-22 10:10] LABS: ALB/GLOB Ratio 1.7 RATIO (0.9-2.4); AST(SGOT) 20 U/L (<=37); Alanine Aminotransfer ALT/SGPT 13 U/L (<=46); Albumin, Serum 4.2 g/dL (3.4-4.8); Alkaline Phosphatase 91 U/L (40-129); Anion Gap 11 (5-15); BUN 32 mg/dL (4-19); BUN/Creat Ratio 23.3 RATIO (10-20); Calcium,Total 9.7 mg/dL (7.6-11.0); Carbon Dioxide 25.7 mmol/L (21.0-32.0); Chloride 99 mmol/L (98-108); Creatinine, Serum 1.35 mg/dL (0.70-1.20); EST Glomerular Filtration Rate 52 (>60); Globulin 2.5 g/dL (2.2-4.2); Glucose 117 mg/dL (70-99); Potassium 4.5 mmol/L (3.3-5.1); Protein, Total 6.7 g/dL (5.9-8.4); Sodium Level 136 mmol/L (133-145)
[2024-08-22 10:23] LABS: Cholesterol 112 mg/dL (<=200); High Density Lipoprotein 59 mg/dL; Low Density Lipoprotein Calc. 42 mg/dL; Total Bilirubin 0.42 mg/dL (0.00-1.30); Triglycerides 55 mg/dL; Very Low Density Lipoprotein 11 mg/dL (5-40)
== END ==
LOC: OLS.WHLCAR 05:00
PROVIDERS: PCP Family Medicine; Visit Provider Internal Medicine
DX: I12.9 Hypertensive chronic kidney disease with stage 1 through stage 4 chronic kidney disease, or unspecified chronic kidney disease (principal); N18.9 Chronic kidney disease, unspecified; E11.41 Type 2 diabetes mellitus with diabetic mononeuropathy
CPT/HCPCS: 36415; 80053; 80061; 83036; 85025

== ENCOUNTER → 2024-10-02 05:00 | Outpatient (REF) | payer OTHER, MEDICAID, SELFPAY ==
[2024-10-02 09:39] LABS: Anion Gap 11 (5-15); BUN 24 mg/dL (4-19); BUN/Creat Ratio 19.5 RATIO (10-20); Calcium,Total 9.5 mg/dL (7.6-11.0); Carbon Dioxide 24.2 mmol/L (21.0-32.0); Chloride 102 mmol/L (98-108); Glucose 119 mg/dL (70-99); Potassium 4.8 mmol/L (3.3-5.1)
== END ==
LOC: OLS.WHLCAR 05:00
PROVIDERS: PCP Family Medicine; Visit Provider Internal Medicine
DX: I12.9 Hypertensive chronic kidney disease with stage 1 through stage 4 chronic kidney disease, or unspecified chronic kidney disease (principal); N18.9 Chronic kidney disease, unspecified; E11.22 Type 2 diabetes mellitus with diabetic chronic kidney disease
CPT/HCPCS: 36415; 80048

== ENCOUNTER → 2024-10-27 | Outpatient (REF) | payer OTHER, MEDICAID, SELFPAY ==
[2024-10-27 11:57] LABS: Color, Urine Yellow (Yellow); Glucose, Dipstick Normal (Normal); Ketone-Dipstick Negative (Negative); Leukocyte Esterase-Dipstick Negative /ul (Negative); Nitrite-Dipstick Negative (Negative); Occult Blood-Urine Negative /ul (Negative); Protein-Dipstick 30 mg/dl (Negative); Specific Gravity, Urine 1.020 (1.002-1.030); Urine Bilirubin Dipstick Negative (Negative)
== END ==
LOC: OLS.WHLCAR 11:00
PROVIDERS: PCP Family Medicine; Visit Provider Internal Medicine
DX: N39.0 Urinary tract infection, site not specified (principal)
CPT/HCPCS: 81002; 87086; 87088

== ENCOUNTER → 2024-10-27 | Outpatient (REF) | payer OTHER, MEDICAID, SELFPAY ==
[2024-10-27 11:56] LABS: Hematocrit 39.9 % (40-54); Hemoglobin 13.5 g/dL (13.0-16.5); Immature Granulocytes Count 0.030 X10^3/uL (0.0-0.0); Mean Corp Hgb Conc 33.8 g/dL (32-36); Mean Corpuscular Volume 89.3 fL (80-94); Mean Platelet Vol. 10.3 fl (6.2-12.0); NRBC Flagged by Analyzer 0 % (0-5); Platelet Count 149 K/mm3 (150-450); RBC Distribution Width CV 13.2 % (11.6-14.6); RBC Distribution Width SD 43.2 fl (35.1-43.9); Red Blood Count 4.47 M/mm3 (4.6-6.2); White Blood Count 7.5 K/mm3 (4.4-11.0)
[2024-10-27 12:52] LABS: Anion Gap 13 (5-15); BUN 32 mg/dL (4-19); BUN/Creat Ratio 24.8 RATIO (10-20); Calcium,Total 9.3 mg/dL (7.6-11.0); Carbon Dioxide 22.9 mmol/L (21.0-32.0); Chloride 103 mmol/L (98-108); Glucose 95 mg/dL (70-99); Potassium 4.5 mmol/L (3.3-5.1)
== END ==
LOC: OLS.WHLCAR 11:00
PROVIDERS: PCP Family Medicine; Visit Provider Internal Medicine
DX: I25.118 Atherosclerotic heart disease of native coronary artery with other forms of angina pectoris (principal); E11.41 Type 2 diabetes mellitus with diabetic mononeuropathy; E11.22 Type 2 diabetes mellitus with diabetic chronic kidney disease; N18.9 Chronic kidney disease, unspecified
CPT/HCPCS: 80048; 85025

== ENCOUNTER → 2024-11-07 | Outpatient (REF) | payer OTHER, MEDICAID, SELFPAY ==
--- OUTSIDE RECORDS SUMMARY | 2024-11-07 04:55 | XMS RPT_ITS | CCD ---
Author Organization [facility] Informat ion [facility] Care Team Providers Care Application Developer Name Role Phone Jake Duque Unavailable [phone] Jake Duque Attending Unavailable Jake Duque Primary Care Unavailable Jake Duque Admitting Unavailable Jake Duque Admitting Unavailable Jake Duque Attending Unavailable DuqueJake barnes Primary Care Unavailable DuqueJake barnes Admitting Unavailable DuqueJake barnes Attending Unavailable DuqueJake barnes Primary Care Unavailable Jake Duque Admitting Unavailable Jake Duque Attending Unavailable Duque, Jake Primary Care Unavailable Jake Duque Unavailable [...] Unavailable Jake Duque MD Primary Care Provider JAKE DUQUE Primary Care Unavailable STENTZ, JOSIANE Primary Care Unavailable JAKE DUQUE Attending Unavailable DUQUEJAKE BARNSE O Referring Unavailable STENTZ, JOSIANE Primary Care Unavailable STENTZ, JOSIANE Attending Unavailable JAKE DUQUE O Referring Unavailable STENTZ, JOSIANE Primary Care Unavailable Roland YOUNG, Dr. Jake Cuevas Primary Care Provider [phone] Kirti Kennedy Attending Provider [phone] Chau Smallwood MD Attending Provider Unavaila lizzeth Smallwood MD, Dr. Ritchie Attending Provider [phone] Jake Duque Primary Care Unavailable Omar Smallwoodewalinabe Attending Unavailable Jake Duque Primary Care Unavailable Kirti Ortiz NP Attending Unavailable Jake Duque Primary Care Unavailable Chau Smallwood Attending Unavailable Chau Fisher Attending Unavailgwyn e Jake Duque Primary Care Unavailable Jake Duque Primary Care Unavailable Chau Fisher Attending UnavailJake [place] Primary Care Unavailable Cl OLSChau Attending Unavailabl e Allergies Allergy Classification Reported Allergen(s) Allergy Type Date of Onset Reaction(s) Facility NSAIDs (4 sources) NSAIDs; Translations: [NSAIDs] Drug Allergy [facility] Work Phone: (18 sources) nabumetone; Translations: [Relafen] Drug Allergy 5 Unknown [facility] Comment on above: KIDNEY DAMAGE (4 sources) nabumetone; Translations: [Relafen] Drug Allergy [facility] Repository (9 sources) NSAIDs; Translations: [NSAIDs] Propensity to adverse reactions to drug (disorder) [facility] Repository (7 sources) Non-steroidal anti-inflammator y agent; Translations: [NSAIDS (NON-STEROIDAL ANTI-INFLAMMATOR Y DRUG)] Drug Allergy 3 Unknown [facility] Work Phone: (5 sources) Mirtazapine; Translations: [MIRTAZAPINE] Drug Allergy 3 Other [facility] Work Phone: (1 source) nabumetone Drug Allergy 7 [facility] Repository Medications Current Medications Medication Drug Class(es) Dates Sig (Normalized) Sig (Original) atorvastatin 40 mg oral tablet (20 sources) HMG-CoA Reductase Inhibitor Start: 04-28-2016 End: 01-19-2025 take 1 tablet by mouth at bedtime Atorvastatin 40 MG tablet Active 40 mg PO AT BEDTIME April 28, 2016 1:00am clopidogrel 75 mg oral tablet (19 sources) [id number] Platelet Inhibitor Start: 09-10-2016 End: 01-11-2024 take 1 tablet by mouth once daily Clopidogrel 75 MG tablet Active 75 mg PO DAILY September 10, 2016 12:00am donepezil hydrochloride 23 mg oral tablet (5 [...] (Ineffective) enalapril maleate 10 mg oral tablet (20 sources) Angiotensin Converting Enzyme Inhibitor Start: 04-28-2016 End: 01-19-2025 take 1 tablet by mouth once daily Enalapril Maleate (Vasotec) 10 MG tablet Active 10 mg PO DAILY April 28, 2016 1:00am Fecgurbc-Fnoi-Icn 1-Y-Htja-Bosw (Osteo Bi-Flex Caplet) 1 EACH tablet (5 sources) Start: 04-28-2016 take 1 tablet by mouth once daily Ogxsjsss-Fwhd-Jeq 8-S-Nmrt-Bosw (Osteo Bi-Flex Caplet) 1 EACH tablet Active 1 NMA PO DAILY April 28, 2016 1:00am Start: 04-28-2016 take 1 tablet by dmitri th once daily Eepfdhcy-Hqeo-Asy4-C-Isreal-Bosw (Osteo Bi -Flex Caplet) 1 EACH tablet Active 1 EACH PO DAILY April 28, 2016 1:00am hydroCHLOROthiazide 12.5 mg oral capsule (20 sources) Thiazide Diuretic Start: 02-07-2015 End: 01-19-2025 take 1 capsule by mouth once daily Hydrochlorothiazide 12.5 MG capsule Active 12.5 mg PO DAILY April 28, 2016 1:00am Lactobac no.41/Bifidobact no.7 (PROBIOTIC-10 ORAL) (1 source) [...] mg extended release oral capsule (8 sources) J-ufcpin-O-aspart ate Receptor Antagonist Start: 10-01-2022 End: 04-08-2024 take 1 capsule by mouth once daily memantine (Namenda XR) 28 mg capsule,sprinkle,ER 24hr 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 90 capsule 3 04/09/2023 04/08/2024 Active Start: 02-17-2022 take 1 capsule by [facility] once daily Memantine HCl ER 28 MG [...] 1 capsule by mouth once daily memantine 09-18-20-28 mg cap,sprinkle,ER 24hr dose pack Take 1 capsule by mouth once daily. 0 01/11/2023 Discontinued (Therapy completed) 24 hr metFORMIN hydrochloride 500 mg extended release oral tablet (20 sources) Biguanide Start: 09-14-2022 End: 01-19-2025 take [...] Active Start: 04-17-2019 take 4 tablets by mo ut once daily metFORMIN HCl ER 500 MG Oral Tablet Extended Release 24 Hour TAKE 4 TABLET Daily Quantity: 360 Refills: 1 Ordered: 02-Oct-2021 Jake Duque MD Start : 17-Apr-2019 Active Start: 04-28-2016 take 1 tablet by dmitri th once daily Metformin 500 MG tablet Active 500 mg PO DAILY April 28, 2016 1:00am take 2 tablets by mo ut once daily metFORMIN XR (Glucophage-XR) 500 mg 24 hr tablet Take 2 tablets (1,000 mg) by mouth once daily. 0 Active methocarbamol 500 mg oral tablet (5 sources) Muscle Relaxant Start: 12-06-2021 take 1 tablet by mouth four times daily as needed for pain Methocarbamol 500 mg tablet Active 500 mg PO 4 TIMES DAILY NEEDED as needed for Muscle pain/spasm 40 0 December 06, 2021 6:00am 24 hr metoprolol succinate 100 mg extended release oral tablet (20 sources) beta-Adrenergic Urszula Start: 01-09-2019 take 1.5 tablets by mouth once daily Metoprolol Succinate ER 100 MG Oral Tablet Extended Release 24 Hour TAKE 1.5 TABLET Daily Quantity: 135 Refills: 3 Ordered: 11-Jan-2020 Jake Duque MD Start : 09-Jan-2019 Active Start: 09-10-2016 take 1 tablet by dmitri th every twenty-four hours at dinner Metoprolol Succinate (Toprol Xl) 50 MG tablet extended release 24 hr Active 50 mg PO WITH DINNER September 10, 2016 12:00am Start: 04-28-2016 End: 01-19-2025 take 1 tablet by mouth once daily Metoprolol Succinate (Toprol Xl) 100 MG tablet extended release 24 hr Active 100 mg PO DAILY April 28, 2016 1:00am take 1 tablet by mouth once rachel y metoprolol succinate (TOPROL-XL) 100 MG 24 hr tablet Take 150 mg by mouth daily. Active Multivitamin With Folic Acid (Multivitamin) 1 TABLET tablet (5 sources) Start: 04-28-2016 take 1 tablet by mouth once daily Multivitamin With Folic Acid (Multivitamin) 1 TABLET tablet Active 1 {tbl} PO DAILY April 28, 2016 1:00am Start: 04-28-2016 take 1 tablet by dmitri th once daily Multivitamin With Folic Acid (Multivitamin) 1 TABLET tablet Active 1 TABLET PO DAILY April 28, 2016 1:00am Multivitamin With Minerals Tablet (1 source) take 1 tablet by mouth once daily multivitamin with minerals tablet Take 1 tablet by mouth daily. Active nitroglycerin 0.4 mg sublingual tablet (19 sources) Nitrate Vasodilator Start: 01-11-20 15 Nitroglycerin 0.4 MG tablet, sublingual Active 0.4 mg SL NEEDED as needed for Angina April 28, 2016 1:00am omeprazole 20 mg delayed release oral capsule (15 sources) Proton Pump Inhibitor Start: 09-11-19 17 End: 07-08-19 23 take 1 capsule by mouth at dinner Omeprazole 20 MG capsule Active 20 mg PO WITH DINNER September 10, 2016 12:00am solifenacin succinate 10 mg oral tablet (6 sources) Cholinergic Muscarinic Antagonist Start: 09-11-19 17 End: 09-14-19 18 take 1 tablet by mouth once daily Solifenacin (Vesicare) 10 MG tablet Active 10 mg PO DAILY September 10, 2016 12:00am Completed/Discontinued Medications Medication Drug Class(es) Dates Sig (Normalized) Sig (Original) aspirin 81 mg delayed release oral tablet (20 sources) Nonsteroidal Anti-inflammatory Drug Start: 01-09-2019 take 1 tablet by mouth once daily Aspirin 81 MG Oral Tablet Delayed Release TAKE 1 TABLET DAILY. Quantity: 0 Refills: 0 Ordered: 09-Jan-2019 DO Start : 09-Jan-2019 Active Start: 04-28-2016 take 1 tablet by mouth once da andrey Aspirin 325 MG tablet Active 325 mg PO DAILY April 28, 2016 1:00am chondroitin [...] mg/ml ophthalmic solution (8 sources) Plasma Volume Mammal Control Agent Start: 03-12-2020 take 1 drop(s) into the eye(s) once daily as needed Artificial Tears 0.1-0.3 % Ophthalmic Solution INSTILL 1 DROP Daily PRN Quantity: 0 Refills: 0 Ordered: 12-Mar-2020 DO Start : 12-Mar-2020 Active 24 hr donepezil hydrochloride 10 mg / memantine hydrochloride 28 mg extended release oral capsule (2 sources) R-jcpfpu-E-aspart ate Receptor Antagonist Start: 09-14-2022 End: 01-11-2023 [...] once daily. 0 07/07/2022 Discontinued (Therapy completed) 24 hr oxybutynin chloride 10 mg extended release oral tablet (6 sources) Cholinergic Muscarinic Antagonist Start: 01-11-2020 take 1 tablet by mouth once daily Oxybutynin Chloride ER 10 MG Oral Tablet Extended Release 24 Hour Take 1 tablet daily Quantity: 90 Refills: 1 Ordered: 11-Jan-2020 Jake Duque MD Start : 11-Jan-2020 Active sucralfate 1000 mg oral tablet (11 sources) Aluminum Complex Start: 01-09-2019 take 10 mL by mouth once daily Sucralfate 1 GM/10ML Oral Suspension TAKE 10 ML Daily Quantity: 900 Refills: 2 Jake Duque Start : 09-Jan-2019 Active Start: 04-28-2016 take 1 tablet by dmitri th at bedtime Sucralfate 1 GM tablet Active 1 g PO AT BEDTIME April 28, 2016 1:00am Start: 08-25-2010 take 1 g by mouth once daily s ucralfate (CARAFATE) 100 mg/mL suspension Take 1 g by mouth daily. 08/25/2010 Active Problems Active Problems Problem Classification Problem Date Documented Date Episodic/Chronic Abdominal pain (5 sources) Abdominal pain; Translations: [Unspecified abdominal pain] 04-29-2016 Episodic Cancer of prostate (20 sources) Malignant tumor of prostate; Translations: [Malignant neoplasm of prostate] Onset: 07-07-2022 07-07-2022 Chronic Cancer of prostate (5 sources) History of malignant neoplasm of prostate; Translations: [Personal history of malignant neoplasm of prostate] 12-19-2012 Episodic Cataract (20 sources) Age-related cataract; Translations: [...] 07-07-2022 07-07-2022 Chronic Diabetes mellitus without complication (15 sources) Type 2 diabetes mellitus; Translations: [Type 2 diabetes mellitus without complications] Onset: 07-20-2023 07-20-2023 Chronic Disorders of lipid metabolism (20 sources) Hypercholesterolemia; Translations: [Pure hypercholesterolemia] Onset: 07-07-2022 07-07-2022 Chronic Esophageal disorders (5 sources) Gastroesophageal reflux disease; Translations: [Gastro-esophageal reflux disease without esophagitis] 12-19-2012 Chronic Essential hypertension (20 sources) Essential hypertension; Translations: [Hypertensive disorder] Onset: 09-13-2017 09-13-2017 Chronic Genitourinary symptoms and ill-defined conditions (19 sources) Urge incontinence of urine; Translations: [Urge incontinence] Onset: 07-07-2022 07-07-2022 Chronic Hyperplasia of prostate (20 sources) Benign prostatic hypertrophy without outflow obstruction; Translations: [Benign prostatic hypertrophy with outflow obstruction] Onset: 07-07-2022 07-07-2022 Chronic Hypertension with complications and secondary hypertension (5 sources) Hypertensive chronic kidney disease with stage 1 through stage 4 chronic kidney disease, or unspecified chronic kidney disease; Translations: [Hypertensive chronic kidney disease with stage 1 through stage 4 chronic kidney disease, or unspecified chronic kidney disease] Onset: 07-20-2023 Chronic Nonspecific chest pain (8 sources) Chest pain; Translations: [Anterior chest wall pain] 12-14-2021 Episodic Other acquired deformities (13 sources) Spondylolysis [...] Translations: [Lumbago] Onset: 07-07-2022 07-07-2022 Episodic Unclassified (3 sources) Vascular dementia, moderate, without behavioral disturbance, psychotic [...] Test Name Value Interpretation Reference Range Facility Anion gap in Serum or Plasma Ordered By: Chau Smallwood on 10-02-2024 Anion gap [Moles/Vol] 11 mmol/L 5-15 [facility] BUN/creatinine ratioOrdered By: Chau Smallwood on 10-02-2024 Urea nitrogen/Creatinine [Mass ratio] 19.5 mg/mg 10-20 [facility] Carbon dioxide, total [Moles /volume] in Central venous bloodOrdered By: Chau Smallwood on 10-02-2024 CO2 [Moles/Vol] 24.2 mmol/L 21.0-32.0 [facility] Chloride assayOrdered By: Omar Smallwood on 10-02-2024 Chloride [Moles/Vol] 102 mmol/L 98-108 [facility] Glomerular filtration rate ( GFR) estimation/1.73 sq m using serum, plasma, or whole bOrdered By: Chau Hortamalgentry on 10-02-2024 GFR/1.73 sq M.predicted among non-blacks MDRD (S/P/Bld) [Vol rate/Area] 59 mL/min/{1.73_m2} Low >60 [facility] Comment on above: mL/min/1.73m2 CKD-EP I Creatinine Equation (2020) Potassium measurement (mass/ volume)Ordered By: Chau Smallwood on 10-02-2024 Potassium (Unsp spec) [Mass/Vol] 4.8 mmol/L 3.3-5.1 [facility] Serum creatinine measurement (mass/volume)Ordered By: Chau Smallwood on 10-02-2024 Creatinine [Mass/Vol] 1.22 mg/dL High 0.70-1.20 [facility] Serum glucose measurement (m ass/volume)Ordered By: Chau Smallwood on 10-02-2024 Glucose [Mass/Vol] 119 mg/dL High 70-99 [facility] Serum or plasma calcium lisa urement (mass/volume)Ordered By: Chau Hortamalgentry on 10-02-2024 Calcium [Mass/Vol] 9.5 mg/dL 7.6-11.0 [facility] Serum or plasma urea nitroge n measurement (mass/volume)Ordered By: Chau Smallwood on 10-02-2024 Urea nitrogen [Mass/Vol] 24 mg/dL High 4-19 [facility] Sodium levelOrdered By: Erasmo monetflash Mychalmalgentry on 10-02-2024 Sodium [Moles/Vol] 137 mmol/L 133-145 [facility] Absolute lymphocyte countOrd ered By: Chau Smallwood on 08-22-2024 Lymphocytes Auto (Unsp spec) [#/Vol] 2.18 10*3/uL 0.83-4.51 [facility] Absolute neutrophil countOrd ered By: Chau Smallwood on 08-22-2024 Neutrophils (Bld) [#/Vol] 3.9 10*3/uL 2.0-7.7 [facility] Anion gap in Serum or Plasma Ordered By: Chau Smallwood on 08-22-2024 Anion gap [Moles/Vol] 11 mmol/L 5-15 [facility] Automated lymphocyte count a s percentage of total leukocytesOrdered By: Chau Smallwood on 08-22-2024 Lymphocytes/100 WBC Auto (Unsp spec) 31.1 % 19-41 [facility] BUN/creatinine ratioOrdered By: Chau Smallwood on 08-22-2024 Urea nitrogen/Creatinine [Mass ratio] 23.3 mg/mg High 10-20 [facility] Basophil percentageOrdered B y: Chau Smallwood on 08-22-2024 Basophils/100 WBC (Bld) 0.6 % 0-1 [facility] Bilirubin, totalOrdered By: Chau Smallwood on 08-22-2024 Bilirubin [Mass/Vol] 0.42 mg/dL 0.00-1.30 [facility] Calculated very low density lipoprotein (VLDL) cholesterol measurementOrdered By: Chau Smallwood on 08-22-2024 Calculated very low density lipoprotein (VLDL) cholesterol measurement 11 mg/dL 5-40 [facility] Carbon dioxide, total [Moles /volume] in Central venous bloodOrdered By: Chau Smallwood on 08-22-2024 CO2 [Moles/Vol] 25.7 mmol/L 21.0-32.0 [facility] Chloride assayOrdered By: Omar Smallwood on 08-22-2024 Chloride [Moles/Vol] 99 mmol/L 98-108 [facility] Eosinophil percentageOrdered By: Chau Smallwood on 08-22-2024 Eosinophils/100 WBC (Bld) 2.0 % 0-5 [facility] Erythrocyte distribution wid th ratioOrdered By: Chau Smallwood on 08-22-2024 Erythrocyte distribution width (RBC) [Ratio] 13.0 % 11.6-14.6 [facility] Erythrocyte distribution wid th standard deviationOrdered By: Chau Smallwood on 08-22-2024 Erythrocyte distribution width (RBC) [Ratio] 43.0 fl 35.1-43.9 [facility] Glomerular filtration rate ( GFR) estimation/1.73 sq m using serum, plasma, or whole bOrdered By: Chau Smallwood on 08-22-2024 GFR/1.73 sq M.predicted among non-blacks MDRD (S/P/Bld) [Vol rate/Area] 52 mL/min/{1.73_m2} Low >60 [facility] Comment on above: mL/min/1.73m2 CKD-EP I Creatinine Equation (2020) Hematocrit Auto (Bld) [Volum e fraction]Ordered By: Chau Smallwood on 08-22-2024 Hematocrit (Bld) [Volume fraction] 41.0 % 40-54 [facility] Hemoglobin A1c percentageOrd ered By: Chau Smallwood on 08-22-2024 HbA1c (Bld) [Mass fraction] 6.5 % High <5.7 [facility] Comment on above: Normal < 5.7 % Predi abetic 5.7 - 6.4 % Diabetic >or= 6.5 % Please note range changes. Hemoglobin measurementOrdere d By: Chau Smallwood on 08-22-2024 Hemoglobin (Bld) [Mass/Vol] 13.7 g/dL 13.0-16.5 [facility] Immature granulocytes/100 WB C Auto (Bld)Ordered By: Chau Smallwood on 08-22-2024 Immature granulocytes/100 WBC (Bld) 0.300 % 0.0-0.9 [facility] Comment on above: IG% - Immature Granu locytes (promyelocytes, myelocytes and metamyelocytes) > 1% indicates that a LEFT SHIFT is Present. LDL calc ser/plasOrdered By: Chau Smallwood on 08-22-2024 Cholesterol in LDL [Mass/Vol] 42 mg/dL [facility] Comment on above: Gwrxvgvvlp=035-476 m g/dL & Higher Fynb=893 mg/dL or greater Laboratory - Chemistry and C hemistry - challengeOrdered By: hCau Smallwood on 08-22-2024 AST [Catalytic activity/Vol] 20 U/L <38 [facility] MCV (mean corpuscular volume ) determinationOrdered By: Chau Smallwood on 08-22-2024 MCV (RBC) [Entitic vol] 89.9 fL 80-94 [facility] Mean corpuscular hemoglobin (MCH) determinationOrdered By: Chau Smallwood on 08-22-2024 MCH (RBC) [Entitic mass] 30.0 pg 27.0-32.0 [facility] Mean corpuscular hemoglobin concentration (MCHC) determinationOrdered By: Chau Smallwood on 08-22-2024 MCHC (RBC) [Mass/Vol] 33.4 g/dL 32-36 [facility] Mean platelet volume determi nationOrdered By: Chau Smallwood on 08-22-2024 Platelet mean volume (Bld) [Entitic vol] 9.7 fL 6.2-12.0 [facility] Monocyte percentageOrdered B y: Chau Smallwood on 08-22-2024 Monocytes/100 WBC (Bld) 10.3 % High 0-10 [facility] Neutrophil percentageOrdered By: efetroupsburgernie Smallwood on 08-22-2024 Neutrophils/100 WBC (Bld) 55.7 % 47-70 [facility] Nucleated red blood cell per centageOrdered By: Chau Smallwood on 08-22-2024 Nucleated RBC/100 WBC (Bld) [Ratio] 0 % 0-5 [facility] Platelet countOrdered By: Omar Smallwood on 08-22-2024 Platelets (Bld) [#/Vol] 180 10*3/uL 150-450 [facility] Potassium measurement (mass/ volume)Ordered By: Chau Smallwood on 08-22-2024 Potassium (Unsp spec) [Mass/Vol] 4.5 mmol/L 3.3-5.1 [facility] RBC Auto (Bld) [#/Vol]Ordere d By: Chau Smallwood on 08-22-2024 RBC (Bld) [#/Vol] 4.56 10*6/uL Low 4.6-6.2 [facility] Screening total cholesterol/ high density lipoprotein (HDL) cholesterol ratioOrdered By: Chau Smallwood on 08-22-2024 Cholesterol.total/Cho lesterol in HDL [Mass ratio] 1.90 {ratio} [facility] Serum creatinine measurement (mass/volume)Ordered By: Chau Smallwood on 08-22-2024 Creatinine [Mass/Vol] 1.35 mg/dL High 0.70-1.20 [facility] Serum globulin measurementOr dered By: Chau Smallwood on 08-22-2024 Globulin (S) [Mass/Vol] 2.5 g/dL 2.2-4.2 [facility] Serum glucose measurement (m ass/volume)Ordered By: Chau Smallwood on 08-22-2024 Glucose [Mass/Vol] 117 mg/dL High 70-99 [facility] Serum or plasma alanine yepez otransferase (ALT) measurementOrdered By: Chau Smallwood on 08-22-2024 ALT [Catalytic activity/Vol] 13 U/L <47 [facility] Serum or plasma albumin lisa urement (mass/volume)Ordered By: Chau Smallwood on 08-22-2024 Albumin [Mass/Vol] 4.2 g/dL 3.4-4.8 [facility] Serum or plasma albumin/glob ulin mass ratioOrdered By: Chau Smallwood on 08-22-2024 Albumin/Globulin [Mass ratio] 1.7 {ratio} 0.9-2.4 [facility] Serum or plasma alkaline donavan sphatase measurementOrdered By: Chau Smallwood on 08-22-2024 ALP [Catalytic activity/Vol] 91 U/L 40-129 [facility] Serum or plasma calcium lisa urement (mass/volume)Ordered By: Chau Smallwood on 08-22-2024 Calcium [Mass/Vol] 9.7 mg/dL 7.6-11.0 [facility] Serum or plasma cholesterol in HDL measurement (mass/volume)Ordered By: Chau Smallwood on 08-22-2024 Cholesterol in HDL [Mass/Vol] 59 mg/dL >40 [facility] Comment on above: National Cholesterol Education Program (NCEP) guidelines:<40 mg/dL: Low HDL-cholesterol (major risk factor for CHD)>= 60 mg/dL: High HDL-cholesterol (negative risk factor for CHD)HDL-cholesterol is affected by a number of factors, e.g. smoking, exercise, hormones, sex and age. Serum or plasma cholesterol measurement (mass/volume)Ordered By: Chau Smallwood on 08-22-2024 Cholesterol [Mass/Vol] 112 mg/dL <201 [facility] Comment on above: Cholesterol level, D esirable <200 mg/dLBorderline high cholesterol 200-239 mg/dLHigh cholesterol >=240 mg/dLRecommendations of the NCEP Adult Treatment Panel for the following risk-cutoff thresholds for the [place] population. Serum or plasma urea nitroge n measurement (mass/volume)Ordered By: Chau Smallwood on 08-22-2024 Urea nitrogen [Mass/Vol] 32 mg/dL High 4-19 [facility] Sodium levelOrdered By: Erasmo monetflash Cl on 08-22-2024 Sodium [Moles/Vol] 136 mmol/L 133-145 [facility] Total proteinOrdered By: Sam garimaernie Smallwood on 08-22-2024 Protein [Mass/Vol] 6.7 g/dL 5.9-8.4 [facility] Triglycerides measurementOrd ered By: Chau Smallwood on 08-22-2024 Triglyceride [Mass/Vol] 55 mg/dL <199 [facility] Comment on above: The drugs N-Acetylcy steine and Metamizole may falsely depress this assay. Normal range: <150 mg/dLBorderline High: 150-199 mg/dLHigh: 200-499 mg/dLVery High: >500 mg/dL White blood cell (WBC) count Ordered By: Chau Smallwood on 08-22-2024 WBC (Bld) [#/Vol] 7.0 10*3/uL 4.4-11.0 [facility] CBC (INCLUDES DIFF/PLT)on Basophils (Bld) [#/Vol] 0.049 10*3/uL Normal 0-200 [facility] Comment on above: Performed By: #### 9 27, [id number], [id number], 7600, [id number], #### [facility] of [address], [address] [place] [address] [employer] Operator Helper: Nash Ames MD Basophils/100 WBC (Bld) 0.6 % Normal [facility] Comment on above: Performed By: #### 9 27, 6399, [id number], 7600, [id number], #### [facility] of [place] [address] [employer] Operator Helper: Nash Ames MD Eosinophils (Bld) [#/Vol] 0.251 10*3/uL Normal 15-500 [facility] Comment on above: Performed By: #### 9 27, 63, [id number], 7600, [id number], #### [facility] of [place] [address] [employer] Operator Helper: Nash Ames MD Eosinophils/100 WBC (Bld) 3.1 % Normal [facility] Comment on above: Performed By: #### 9 27, 63, [id number], 7600, [id number], #### [facility] of [place] [address] [employer] Operator Helper: Nash Ames MD Erythrocyte distribution width (RBC) [Ratio] 13.0 % Normal 11.0-15.0 [facility] Comment on above: Performed By: #### 9 27, 63, 63795, 7600, 60082, #### [facility] of [place] [address] [employer] Operator Helper: Nash Ames MD Hematocrit (Bld) [Volume fraction] 47.6 % Normal 38.5-50.0 [facility] Comment on above: Performed By: #### 9 27, 6399, 26066, 7600, 02316, #### [facility] [place] [address] [employer] Helper: Nash Ames MD Hemoglobin (Bld) [Mass/Vol] 15.3 g/dL Normal 13.2-17.1 [facility] Comment on above: Performed By: #### 9 27, 63, 20092, 7600, 15266, #### [facility] [place] [address] [employer] Helper: Nash Ames MD Lymphocytes (Bld) [#/Vol] 1.855 10*3/uL Normal 850-3900 [facility] Comment on above: Performed By: #### 9 , 63, 41852, 7600, 71685, #### [facility] [place] [address] [employer] Helper: Nash Ames MD Lymphocytes/100 WBC (Bld) 22.9 % Normal [facility] Comment on above: Performed By: #### 9 27, 63, 00818, 7600, 89599, #### [facility] [place] [address] [employer] Helper: Nash Ames MD MCH (RBC) [Entitic mass] 30.1 pg Normal 27.0-33.0 [facility] Comment on above: Performed By: #### 9 27, 63, 40363, 7600, 01080, #### [facility] [place] [address] [employer] Helper: Nash Ames MD MCHC (RBC) [Mass/Vol] 32.1 g/dL Normal 32.0-36.0 [facility] Comment on above: Result Comment: For adults, a slight decrease in the calculated MCHC value (in the range of 30 to 32 g/dL) is most likely not clinically significant; however, it should be interpreted with caution in correlation with other red cell parameters and the patient's clinical condition. Performed By: #### 9 , 63, 19120, 7600, 51101, #### [facility] [place] [address] [employer] Helper: Nash Ames MD MCV (RBC) [Entitic vol] 93.5 fL Normal 80.0-100.0 [facility] Comment on above: Performed By: #### 9 27, 6399, 36140, 7600, 45366, #### [facility] of [address], [address] [place] [address] [employer] Helper: Nash Ames MD Monocytes (Bld) [#/Vol] 0.826 10*3/uL Normal 200-950 [facility] Comment on above: Performed By: #### 9 27, 6399, 79958, 7600, 23055, #### [facility] [place] [address] [employer] Helper: Nash Ames MD Monocytes/100 WBC (Bld) 10.2 % Normal [facility] Comment on above: Performed By: #### 9 27, 6399, 02654, 7600, 12576, #### [facility] of [address], [address] [place] [address] [employer] Operator Helper: Nash Ames MD Neutrophils (Bld) [#/Vol] 5.119 10*3/uL Normal 4958-4332 [facility] Comment on above: Performed By: #### 9 27, 6399, 99793, 7600, 99247, 70659 #### [facility] [place] [address] [employer] Helper: Nash Ames MD Neutrophils/100 WBC (Bld) 63.2 % Normal [facility] Comment on above: Performed By: #### 9 27, 6399, 84281, 7600, 64951, #### [facility] [place] [address] [employer] Helper: Nash Ames MD Platelet mean volume (Bld) [Entitic vol] 9.7 fL Normal 7.5-12.5 [facility] Comment on above: Performed By: #### 9 27, 6399, 17565, 7600, 87397, #### [facility] of [address] [address] [employer] Helper: Nash Ames MD Platelets (Bld) [#/Vol] 180 10*3/uL Normal 140-400 [facility] Comment on above: Performed By: #### 9 27, 6399, 70173, 7600, 02510, 99269 #### [facility] of [address], [address] [place] [address] [employer] Operator Helper: Nash Ames MD RBC (Bld) [#/Vol] 5.09 10*6/uL Normal 4.20-5.80 [facility] Comment on above: Performed By: #### 9 27, 6399, 78193, 7600, 97075, #### [facility] [place] [address] [employer] Helper: Nash Ames MD WBC (Bld) [#/Vol] 8.1 10*3/uL Normal 3.8-10.8 [facility] Comment on above: Performed By: #### 9 27, 6399, 68693, 7600, 55718, #### [facility] [place] [address] [employer] Helper: Nash Ames MD COMPREHENSIVE METABOLIC PANE L W/ANION GAPon 07-16-2024 Albumin [Mass/Vol] 4.5 g/dL Normal 3.6-5.1 [facility] Comment on above: Performed By: #### 9 27, 6399, 91727, 7600, 62140, #### [facility] [place] [address] [employer] Helper: Nash Ames MD ALP [Catalytic activity/Vol] 70 U/L Normal 35-144 [facility] Comment on above: Performed By: #### 9 27, 6399, 87172, 7600, 38352, 95834 #### [facility] [place] [address] [employer] Helper: Nash Ames MD ALT [Catalytic activity/Vol] 14 U/L Normal 9-46 [facility] Comment on above: Performed By: #### 9 27, 63, 90288, 7600, 22903, #### [facility] of [address], [address] [place] [address] [employer] Helper: Nash Ames MD AST [Catalytic activity/Vol] 16 U/L Normal 10-35 [facility] Comment on above: Performed By: #### 9 27, 63, 69330, 7600, 98024, #### [facility] of [address], [address] [place] [address] [employer] Helper: Nash Ames MD Bilirubin [Mass/Vol] 0.7 mg/dL Normal 0.2-1.2 [facility] Comment on above: Performed By: #### 9 27, 63, 86838, 7600, 47593, #### [facility] of [address], [address] [place] [address] [employer] Operator Helper: Nash Ames MD Calcium [Mass/Vol] 9.8 mg/dL Normal 8.6-10.3 [facility] Comment on above: Performed By: #### 9 27, 63, 32274, 7600, 32084, #### [facility] of [address], [address] [place] [address] [employer] Operator Helper: Nash Ames MD Chloride [Moles/Vol] 98 mmol/L Normal 98-110 [facility] Comment on above: Performed By: #### 9 27, 63, 97648, 7600, 47329, #### [facility] of [address], [address] [place] [address] [employer] Operator Helper: Nash Ames MD CO2 [Moles/Vol] 30 mmol/L Normal 20-32 [facility] Comment on above: Performed By: #### 9 27, 6399, 75008, 7600, 78010, #### [facility] of [address], [address] [place] [address] [employer] Operator Helper: Nash Ames MD Creatinine [Mass/Vol] 1.18 mg/dL Normal 0.70-1.[address] [facility] Comment on above: Performed By: #### 9 27, 6399, 17780, 7600, 17382, 41155 #### [facility] [place] [address] [employer] Operator Helper: Nash Ames MD ELECTROLYTE BALANCE 8 mmol/L (calc) Normal 7-17 [facility] Comment on above: Performed By: #### 9 27, 6399, 74543, 7600, 95953, #### [facility] [place] [address] [employer] Helper: Nash Ames MD GFR/1.73 sq M.predicted among non-blacks MDRD (S/P/Bld) [Vol rate/Area] 62 mL/min/{1.73_m2} Normal > OR = 60 [facility] Comment on above: Performed By: #### 9 27, 6399, 30382, 7600, 49901, #### [facility] [place] [address] [employer] Helper: Nash Ames MD Glucose [Mass/Vol] 97 mg/dL Normal 65-99 [facility] Comment on above: Result Comment: Fasting reference interval Performed By: #### 9 27, 6399, 03533, 7600, 07472, #### [facility] [place] [address] [employer] Helper: Nash Ames MD Potassium [Moles/Vol] 4.8 mmol/L Normal 3.5-5.[address] [facility] Comment on above: Performed By: #### 9 27, 6399, 00476, 7600, 33051, 78322 #### [facility] [place] [address] [employer] Helper: Nash Ames MD Protein [Mass/Vol] 7.1 g/dL Normal 6.1-8.1 [facility] Comment on above: Performed By: #### 9 27, 6399, 46738, 7600, 26362, #### [facility] [address], [address] [place] [address] [employer] Operator Helper: Nash Ames MD Sodium [Moles/Vol] 136 mmol/L Normal 135-146 [facility] Comment on above: Performed By: #### 9 27, 6399, 49343, 7600, 61514, #### [facility] [address], [address] [place] [address] [employer] Operator Helper: Nash Ames MD Urea nitrogen [Mass/Vol] 23 mg/dL Normal 7-25 [facility] Comment on above: Performed By: #### 9 27, 6399, 03216, 7600, 06303, 84655 #### [facility] [place] [address] [employer] Operator Helper: Nash Ames MD HEMOGLOBIN A1c WITH eAGon eAG (mmol/L) 7.4 mmol/L Normal [facility] Comment on above: Performed By: #### 9 27, 6399, 85534, 7600, 68664, #### [facility] [place] [address] [employer] Helper: Nash Ames MD HbA1c (Bld) [Mass fraction] 6.3 % High <5.7 [facility] Comment on above: Result Comment: For someone without known diabetes, a hemoglobin A1c value between 5.7% [...] children. Performed By: #### 9 27, 6399, 25169, 7600, 58866, #### [facility] [address], [address] [place] [address] [employer] Operator Helper: Nash Ames MD Magnesium [Mass/Vol] 134 mg/dL Normal [facility] Comment on above: Performed By: #### 9 27, 6399, 31689, 7600, 70959, 64021 #### [facility] [address], [address] [place] [address] [employer] Operator Helper: Nash Ames MD LIPID PANEL, [facility] 05 Cholesterol [Mass/Vol] 126 mg/dL Normal <200 [facility] Comment on above: Order Comment: FASTI NG:YES FASTING: YES Performed By: #### 9 27, 6399, 82304, 7600, 68612, 84496 #### [facility] [address], [address] [place] [address] [employer] Operator Helper: Nash Ames MD Cholesterol in HDL [Mass/Vol] 62 mg/dL Normal > OR = 40 [facility] Comment on above: Order Comment: FASTI NG:YES FASTING: YES Performed By: #### 9 27, 6399, 36034, 7600, 94278, 95484 #### [facility] [address], [address] [place] [address] [employer] Operator Helper: Nash Ames MD Cholesterol in LDL [Mass/Vol] 46 mg/dL Normal [facility] Comment on above: Order Comment: FASTI NG:YES FASTING: YES Result Comment: Refe rence range: [...] LDL-C. Timothy SS et al. VIRGILIO. 2013;310(19): 0289-7077 (http://education.WaysGo.Targeter App/faq/EQB944) Performed By: #### 9 27, 6399, 17828, 7600, 54870, 67918 #### [facility] [address], [address] [place], [place] [address] [employer] Operator Helper: Nash Ames MD Cholesterol.total/Cho lesterol in HDL [Mass ratio] 2.0 {ratio} Normal <5.0 [facility] Comment on above: Order Comment: FASTI NG:YES FASTING: YES Performed By: #### 9 27, 6399, 76434, 7600, 31796, 51514 #### [facility] [address], [address] [place] [address] [employer] Operator Helper: Nash Ames MD NON HDL CHOLESTEROL 64 mg/dL (calc) Normal <130 [facility] Comment on above: Order Comment: FASTI NG:YES FASTING: YES Result Comment: For patients with diabetes plus 1 major ASCVD risk factor, treating to a non-HDL-C goal of <100 mg/dL (LDL-C of <70 mg/dL) is considered a therapeutic option. Performed By: #### 9 27, 6399, 97689, 7600, 80070, #### [facility] [place] [address] [employer] Operator Helper: Nash Ames MD Triglyceride [Mass/Vol] 92 mg/dL Normal <150 [facility] Comment on above: Order Comment: FASTI NG:YES FASTING: YES Performed By: #### 9 27, 6399, 06120, 7600, 07797, 54166 #### [facility] [address], [address] [place] [address] [employer] Operator Helper: Nash Ames MD PSA, TOTAL, MONITORINGon PSA, TOTAL, MONITORING 0.04 ng/mL Normal < OR = 4.00 [facility] Comment on above: Result Comment: The total PSA value from this assay system is standardized against the WHO standard. The test result will be approximately 20% lower when compared to the equimolar-standardized total PSA (Maria Elena Paddy). Comparison of serial PSA results should be interpreted with this fact in mind. This test was performed using the Siemens chemiluminescent method. Values obtained from different assay methods cannot be used interchangeably. PSA levels, regardless of value, should not be interpreted as absolute evidence of the presence or absence of disease. Performed By: #### 9 27, 6399, 89330, 7600, 62750, 69579 #### [facility] [address], [address] [place] [address] [employer] Operator Helper: Nash Ames MD TSH W/REFLEX TO FT4on 2024 TSH W/REFLEX TO FT4 1.70 mIU/L Normal 0.40-4.50 [facility] Comment on above: Performed By: #### 9 27, 6399, 58920, 7600, 06461, 02380 #### [facility] [address], [address] [place] [address] [employer] Operator Helper: Nash Ames MD VITAMIN B12on 07-16-2024 Cobalamin [...] symptoms. Performed By: #### 9 27, 6399, 74516, 7600, 17116, 89312 #### [facility] [place] [address] [employer] Operator Helper: Nash Ames MD CBC panel Auto (Bld)on 01-19 Erythrocyte distribution width (RBC) [Ratio] 13.4 % Normal 11.5-14.5 [facility] Comment on above: Performed By: #### 5 8410-2 #### CECY WONG ([id number]) [facility] ([facility]) [address] [place] [address] 89383 Hematocrit (Bld) [Volume fraction] 43.8 % Normal 41.0-52.0 [facility] Comment on above: Performed By: #### 5 8410-2 #### CECY WONG ([id number]) [facility] ([facility]) [address] [place] [address] 50095 Hemoglobin (Bld) [Mass/Vol] 14.1 g/dL Normal 13.5-17.5 [facility] Comment on above: Performed By: #### 5 8410-2 #### CECY WONG ([id number]) [facility] ([facility]) [address] [place] [address] 09462 MCH (RBC) [Entitic mass] 29.7 pg Normal 26.0-34.0 [facility] Comment on above: Performed By: #### 5 8410-2 #### CECY WONG ([id number]) [facility] ([facility]) [address] [place] [address] 70277 MCHC (RBC) [Mass/Vol] 32.2 g/dL Normal 32.0-36.0 [facility] Comment on above: Performed By: #### 5 8410-2 #### CECY WONG ([id number]) [facility] ([facility]) [address] [place] [address] 94099 MCV (RBC) [Entitic vol] 92 fL Normal 80-100 [facility] Comment on above: Performed By: #### 5 8410-2 #### CECY WONG ([id number]) [facility] ([facility]) [address] [place] [address] 47868 Nucleated RBC/100 WBC (Bld) [Ratio] 0.0 /100 WBCs Normal 0.0-0.0 [facility] Comment on above: Performed By: #### 5 8410-2 #### CECY WONG ([id number]) [facility] ([facility]) [address] [place] [address] 74736 Platelets (Bld) [#/Vol] 197 x10*3/uL Normal 150-450 [facility] Comment on above: Performed By: #### 5 8410-2 #### CECY WONG ([id number]) [facility] ([facility]) [address] [place] [address] 28093 RBC (Bld) [#/Vol] 4.74 x10*6/uL Normal 4.50-5.90 [facility] Comment on above: Performed By: #### 5 8410-2 #### CECY WONG (19753) [facility] ([facility]) [address] [place] [address] WBC (Bld) [#/Vol] 8.0 x10*3/uL Normal 4.4-11.3 [facility] Comment on above: Performed By: #### 5 8410-2 #### CECY WONG ([id number]) [facility] ([facility]) [address] [place] [address] 67781 Cobalaminson 01-20-2024 Cobalamin (Vitamin B12) [Mass/Vol] 257 pg/mL Normal 211-911 [facility] Comment on above: Performed By: #### 2 132-9 #### HOLDEN Larson ([id number]) [facility] ([facility]) [id number] [place] [address] 66886 Comprehensive metabolic 2000 panelon 01-20-2024 Albumin BCP dye [Mass/Vol] 4.0 g/dL Normal 3.4-5.0 [facility] Comment on above: Performed By: #### 2 4323-8 #### CECY WONG ([id number]) [facility] ([facility]) [address] [place] [address] 78420 ALP [Catalytic activity/Vol] 73 U/L Normal 33-136 [facility] Comment on above: Performed By: #### 2 4323-8 #### CECY WONG ([id number]) [facility] ([facility]) [address] [place] [address] 76668 ALT With P-5'-P [Catalytic activity/Vol] 11 U/L Normal 10-52 [facility] Comment on above: Result Comment: [place] ents treated with Sulfasalazine may generate falsely decreased results for ALT. Performed By: #### 2 4323-8 #### CECY WONG ([id number]) [facility] ([facility]) [address] [place] [address] 92320 Anion gap [Moles/Vol] 13 mmol/L Normal 10-20 [facility] Comment on above: Performed By: #### 2 4323-8 #### ECCY WONG ([id number]) [facility] ([facility]) [address] [place] [address] AST With P-5'-P [Catalytic activity/Vol] 12 U/L Normal 9-39 [facility] Comment on above: Performed By: #### 2 432-8 #### CECY WONG ([id number]) [facility] ([facility]) [address] [place] [address] Bilirubin [Mass/Vol] 0.6 mg/dL Normal 0.0-1.2 [facility] Comment on above: Performed By: #### 2 4322-8 #### CECY WONG ([id number]) [facility] ([facility]) [address] [place] [address] 94756 Calcium [Mass/Vol] 9.5 mg/dL Normal 8.6-10.3 [facility] Comment on above: Performed By: #### 2 4322-8 #### CECY WONG ([id number]) [facility] ([facility]) [address] [place] [address] 52744 Chloride [Moles/Vol] 99 mmol/L Normal 98-107 [facility] Comment on above: Performed By: #### 2 4322-8 #### CECY WONG ([id number]) [facility] ([facility]) [address] [place] [address] CO2 [Moles/Vol] 29 mmol/L Normal 21-32 [facility] Comment on above: Performed By: #### 2 4322-8 #### CECY WONG ([id number]) [facility] ([facility]) [address] [place] [address] Creatinine [Mass/Vol] 1.46 mg/dL High 0.50-1.30 [facility] Comment on above: Performed By: #### 2 432-8 #### CECY WONG ([id number]) [facility] ([facility]) [address] [place] [address] Glomerular filtration rate/1.73 sq M.predicted 48 mL/min/1.73m*2 Low >60 [facility] Comment on above: Result Comment: Calc ulations of estimated GFR are performed using the 2020 CKD-EPI Study Refit equation without the race variable for the IDMS-Traceable creatinine methods. https://jasn.asnjournals.org/content/early/ASN.600431 0646 Performed By: #### 2 4323-8 #### CECY WONG ([id number]) [facility] ([facility]) [address] [place] [address] 36137 Glucose [Mass/Vol] 100 mg/dL High 74-99 [facility] Comment on above: Performed By: #### 2 4323-8 #### CECY WONG (81939) [facility] ([facility]) [address] [place] [address] 95993 Potassium [Moles/Vol] 5.0 mmol/L Normal 3.5-5.3 [facility] Comment on above: Performed By: #### 2 4323-8 #### CECY WONG ([id number]) [facility] ([facility]) [address] [place] [address] 86316 Protein [Mass/Vol] 6.4 g/dL Normal 6.4-8.2 [facility] Comment on above: Performed By: #### 2 4323-8 #### CECY WONG ([id number]) [facility] ([facility]) [address] [place] [address] 91507 Sodium [Moles/Vol] 136 mmol/L Normal 136-145 [facility] Comment on above: Performed By: #### 2 4323-8 #### CECY WONG ([id number]) [facility] ([facility]) [address] [place] [address] 44646 Urea nitrogen [Mass/Vol] 37 mg/dL High 6-23 [facility] Comment on above: Performed By: #### 2 4323-8 #### CECY WONG ([id number]) [facility] ([facility]) [address] [place] [address] 57505 HbA1c (Bld) [Mass fraction]o n 01-20-2024 Average glucose Estimated from glycated hemoglobin (Bld) [Mass/Vol] 131 mg/dL Normal Not Established [facility] Comment on above: Order Comment: Diagn osis of Diabetes-Adults Non-Diabetic: < or = 5.6% Increased risk for developing diabetes: 5.7-6.4% Diagnostic of diabetes: > or = 6.5% Performed By: #### 4 548-4 #### HOLDEN Larson ([id number]) [facility] ([facility]) [address] [place] [address] Hemoglobin A1c/Hemoglobin.to myles 01-20-2024 HbA1c (Bld) [Mass fraction] 6.2 % High See comment [facility] Comment on above: Order Comment: Diagn osis of Diabetes-Adults Non-Diabetic: < or = 5.6% Increased risk for developing diabetes: 5.7-6.4% Diagnostic of diabetes: > or = 6.5% Performed By: #### 4 548-4 #### HOLDEN Larson ([id number]) [facility] ([facility]) [id number] [place] [address] 21543 Lipid 1996 panelon 4 Cholesterol [Mass/Vol] 109 mg/dL Normal 0-199 [facility] Comment on above: Result Comment: Age Desirable [...] dosing. Performed By: #### 2 4331-1 #### SAM MARVIN ([id number]) [facility] ([facility]) [address] [place] [address] Cholesterol in HDL [Mass/Vol] 46.0 mg/dL Normal [facility] Comment on above: Result Comment: Age Very Low Low Normal High 0-19 Y < 35 < 40 40-45 ---- 20-24 Y ---- < 40 >45 ---- >24 Y ---- < 40 40-60 >60 Performed By: #### 2 4331-1 #### CECY WONG ([id number]) [facility] ([facility]) [address] [place] [address] 69030 Cholesterol in LDL [Mass/Vol] 42 mg/dL Normal <=99 [facility] Comment on above: Result Comment: Near Borderline AGE Desirable Optimal High High Very High 0-19 Y 0 - 109 --- 110-129 >/= 130 ---- 20-24 Y 0 - 119 --- 120-159 >/= 160 ---- >24 Y 0 - 99 100-129 130-159 160-189 >/=190 Performed By: #### 2 4331-1 #### CECY WONG ([id number]) [facility] ([facility]) [address] [place] [address] 41812 Cholesterol in VLDL [Mass/Vol] 21 mg/dL Normal 0-40 [facility] Comment on above: Performed By: #### 2 4331-1 #### CECY WONG ([id number]) [facility] ([facility]) [address] [place] [address] 16459 CHOLESTEROL/HDL RATIO 2.4 Normal [facility] Comment on above: Result Comment: Ref Values Desirable < 3.4 High Risk > 5.0 Performed By: #### 2 4331-1 #### CECY WONG ([id number]) [facility] ([facility]) [address] [place] [address] 28977 NON HDL CHOLESTEROL 63 mg/dL Normal 0-149 [facility] Comment on above: Result Comment: Age Desirable Borderline High High Very High 0-19 Y 0 - 119 120 - 144 >/= 145 >/= 160 20-24 Y 0 - 149 150 - 189 >/= 190 ---- >24 Y 30 mg/dL above LDL Cholesterol goal Performed By: #### 2 4331-1 #### CECY WONG ([id number]) [facility] ([facility]) [address] [place] [address] 56776 Triglyceride [Mass/Vol] 106 mg/dL Normal 0-149 [facility] Comment on above: Result Comment: Age Desirable [...] By: #### 2 4331-1 #### CECY WONG ([id number]) [facility] ([facility]) [address] [place] [address] 25055 Prostate specific Agon 01-19 Prostate specific Ag [Mass/Vol] ng/mL Normal <=4.00 [facility] Comment on above: Order Comment: The DA requires that the method used for PSA assay be reported to the physician. Values obtained with different assay methods must not be used interchangeably. This test was performed at [facility] using the [employer] PSA assay is a two-site immunoenzymatic sandwich assay. The assay is approved for measurement of prostate-specific antigen (PSA)in serum and may be used in conjunction with a digital rectal examination in men 50 years and older as an aid in detection of prostate cancer. 0-Hkuyc-eociogqqp inhibitors (e.g. Proscar, Finasteride, Avodart, Dutasteride and Yessica) for the treatment of BPH have been shown to lower PSA levels by an average of 50% after 6 months of treatment. Performed By: #### 2 857-1 #### HOLDEN Larson ([id number]) [facility] ([facility]) [address] [place] [address] Comprehensive metabolic 2000 panelon 07-03-2023 Albumin BCP dye [Mass/Vol] 3.9 g/dL Normal 3.4-5.0 [facility] Comment on above: Performed By: #### 2 4323-8 #### CECY WONG ([id number]) [facility] ([facility]) [address] [place] [address] ALP [Catalytic activity/Vol] 62 U/L Normal 33-136 [facility] Comment on above: Performed By: #### 2 432-8 #### CECY WONG ([id number]) [facility] ([facility]) [address] [place] [address] ALT With P-5'-P [Catalytic activity/Vol] 11 U/L Normal 10-52 [facility] Comment on above: Result Comment: [place] ents treated with Sulfasalazine may generate falsely decreased results for ALT. Performed By: #### 2 4323-8 #### CECY WONG ([id number]) [facility] ([facility]) [address] [place] [address] Anion gap [Moles/Vol] 12 mmol/L Normal 10-20 [facility] Comment on above: Performed By: #### 2 4323-8 #### CECY WONG ([id number]) [facility] ([facility]) [address] [place] [address] AST With P-5'-P [Catalytic activity/Vol] 13 U/L Normal 9-39 [facility] Comment on above: Performed By: #### 2 4323-8 #### CECY WONG ([id number]) [facility] ([facility]) [address] [place] [address] Bilirubin [Mass/Vol] 0.5 mg/dL Normal 0.0-1.2 [facility] Comment on above: Performed By: #### 2 4323-8 #### CECY WONG ([id number]) [facility] ([facility]) [address] [place] [address] Calcium [Mass/Vol] 9.6 mg/dL Normal 8.6-10.3 [facility] Comment on above: Performed By: #### 2 4323-8 #### CECY WONG ([id number]) [facility] ([facility]) [address] [place] [address] Chloride [Moles/Vol] 100 mmol/L Normal 98-107 [facility] Comment on above: Performed By: #### 2 4323-8 #### CECY WONG ([id number]) [facility] ([facility]) [facility] [place] [address] CO2 [Moles/Vol] 29 mmol/L Normal 21-32 [facility] Comment on above: Performed By: #### 2 4323-8 #### CECY WONG ([id number]) [facility] ([facility]) [address] [place] [address] Creatinine [Mass/Vol] 1.59 mg/dL High 0.50-1.30 [facility] Comment on above: Performed By: #### 2 4323-8 #### CECY WONG ([id number]) [facility] ([facility]) [address] [place] [address] Glomerular filtration rate/1.73 sq M.predicted 43 mL/min/1.73m*2 Low >60 [facility] Comment on above: Result Comment: Calc ulations of estimated GFR are performed using the 2020 CKD-EPI Study Refit equation without the race variable for the IDMS-Traceable creatinine methods. https://jasn.asnjournals.org/content//ASN.773770 1297 Performed By: #### 2 4323-8 #### CECY WONG ([id number]) [facility] ([facility]) [facility] [place] [address] Glucose [Mass/Vol] 142 mg/dL High 74-99 [facility] Comment on above: Performed By: #### 2 4323-8 #### CECY WONG ([id number]) [facility] ([facility]) [facility] [place] [address] Potassium [Moles/Vol] 4.5 mmol/L Normal 3.5-5.3 [facility] Comment on above: Performed By: #### 2 4323-8 #### CECY WONG ([id number]) [facility] ([facility]) [address] [place] [address] Protein [Mass/Vol] 6.2 g/dL Low 6.4-8.2 [facility] Comment on above: Performed By: #### 2 4323-8 #### CECY WONG ([id number]) [facility] ([facility]) [address] [place] [address] Sodium [Moles/Vol] 136 mmol/L Normal 136-145 [facility] Comment on above: Performed By: #### 2 4323-8 #### CECY WONG ([id number]) [facility] ([facility]) [address] [place] [address] Urea nitrogen [Mass/Vol] 32 mg/dL High 6-23 [facility] Comment on above: Performed By: #### 2 4323-8 #### CECY WONG ([id number]) [facility] ([facility]) [address] [place] [address] HbA1c (Bld) [Mass fraction]o n 07-03-2023 Average glucose Estimated from glycated hemoglobin (Bld) [Mass/Vol] 134 mg/dL Normal Not Established [facility] Comment on above: Order Comment: Diagn osis of Diabetes-Adults Non-Diabetic: < or = 5.6% Increased risk for developing diabetes: 5.7-6.4% Diagnostic of diabetes: > or = 6.5% Monitoring of Diabetes Age (y)....................... Therapeutic Goal (%) Adults: >18.........................<7.0 Pediatrics: 13-18...................<7.5 Pediatrics: 7-12....................<8.0 Pediatrics: 0-6..................... 7.5-8.5 [employer]. Diabetes Care 33(S1)Mar 2009 Performed By: #### 4 548-4 #### HOLDEN Larson ([id number]) [facility] ([facility]) [id number] [place], [place] [id number] Hemoglobin A1c/Hemoglobin.to myles 07-03-2023 HbA1c (Bld) [Mass fraction] 6.3 % High see below [facility] Comment on above: Order Comment: Diagn osis of Diabetes-Adults Non-Diabetic: < or = 5.6% Increased risk for developing diabetes: 5.7-6.4% Diagnostic of diabetes: > or = 6.5% Monitoring of Diabetes Age (y)....................... Therapeutic Goal (%) Adults: >18.........................<7.0 Pediatrics: 13-18...................<7.5 Pediatrics: 7-12....................<8.0 Pediatrics: 0-6..................... 7.5-8.5 [employer]. 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) HTN (hypertension) (401.9) (I10) Medication management (V58.69) (Z79.899) Prostate cancer (185) (C61) Orders HTN (hypertension) Comprehensive Metabolic Panel; Status:Active; Requested for:[id number]; Medication management Follow-up visit in 5 Months Outpatient Follow-up Status: Hold For - Scheduling Requested for: [id number] 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 Having some leaking urine that is better on the medication. 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,N13.8) Bilateral renal cysts (753.10) (N28.1) Body mass index (BMI) of 24.0 to 24.9 in adult (V85.1) (Z68.24) Cervical spondylolysis (756.19) (M43.02) Coronary atherosclerosis of [place] coronary artery (414.01) (I25.10) Hiatal hernia (553.3) [...] stent placement History of Cystoscopy History of Esophagogastroduodenoscop y History of Hernia repair History of Renal [...] TABLET EVERY MORNING Vitals Vital Signs Recorded: [id number] 01:53PM Heart Rate68 Rjrwcmif759, LUE Tytcsgvcf85, LUE Height5 ft 9 in Caitbh259 lb BMI Uitnoiltuf21.96 kg/m2 BSA Calculated1.92 Tobacco Useb) No Falls Screening (Age 18+)b) One or more falls in the last year Physical Exam Physical Examination General: Alert and oriented, No acute distress. Eye: Not injected Respiratory: No respiratory distress. Symmetrical chest wall expans (more content not included)... 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, psychotic disturbance, mood disturbance, 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 Normal [employer] COMPREHENSIVE PANELon 2021 Albumin [Mass/Vol] 4.2 g/dL Normal 3.4 - 5.0 [facility] Comment on above: Performed By: #### C MP #### [address] [address] ALP [Catalytic activity/Vol] 53 U/L Normal 33 - 136 [facility]3] Comment on above: Performed By: #### C MP #### [address] [address] ALT [Catalytic activity/Vol] 12 U/L Normal 10 - 52 [facility]3] Comment on above: Result Comment: [place] ents treated with Sulfasalazine may generate falsely decreased results for ALT. Performed By: #### C MP #### [address] [address] Anion gap [Moles/Vol] 13 mmol/L Normal 10 - 20 [facility]3] Comment on above: Performed By: #### C MP #### [address] [address] AST [Catalytic activity/Vol] 14 U/L Normal 9 - 39 [facility]3] Comment on above: Performed By: #### C MP #### [address] [address] Bilirubin [Mass/Vol] 0.8 mg/dL Normal 0.0 - 1.2 [facility] Comment on above: Performed By: #### C MP #### [address] [address] Calcium [Mass/Vol] 9.5 mg/dL Normal 8.6 - 10.3 [facility] Comment on above: Performed By: #### C MP #### [address] [address] Chloride [Moles/Vol] 98 mmol/L Normal 98 - 107 [facility] Comment on above: Performed By: #### C MP #### [address] [address] Creatinine [Mass/Vol] 0.91 mg/dL Normal 0.50 - 1.30 [facility]3] Comment on above: Performed By: #### C MP #### [address] [address] GFR/1.73 sq M.predicted among non-blacks MDRD (S/P/Bld) [Vol rate/Area] 85 mL/min/{1.73_m2} Normal >90 [facility]3] Comment on above: Result Comment: CALC ULATIONS OF ESTIMATED GFR ARE PERFORMED USING THE 2020 CKD-EPI STUDY REFIT EQUATION WITHOUT THE RACE VARIABLE FOR THE IDMS-TRACEABLE CREATININE METHODS. https://jasn.asnjournals.org/content/early//ASN.795415 2443 Performed By: #### C MP #### [address] [address] Glucose [Mass/Vol] 135 mg/dL High 74 - 99 [facility] Comment on above: Performed By: #### C MP #### [address] [address] HCO3 (Bld) [Moles/Vol] 29 mmol/L Normal 21 - 32 [facility]3] Comment on above: Performed By: #### C MP #### [address] [address] Potassium [Moles/Vol] 4.5 mmol/L Normal 3.5 - 5.3 [facility]3] Comment on above: Performed By: #### C MP #### [address] [address] Protein [Mass/Vol] 6.8 g/dL Normal 6.4 - 8.2 [facility] Comment on above: Performed By: #### C MP #### [address] [address] Sodium [Moles/Vol] 135 mmol/L Low 136 - 145 [facility] Comment on above: Performed By: #### C MP #### [address] [address] Urea nitrogen [Mass/Vol] 23 mg/dL Normal 6 - 23 [facility]3] Comment on above: Performed By: #### C MP #### [address] [address] HEMOGLOBIN A1Con 01-10-2022 Glucose [Mass/Vol] 151 mg/dL Normal [facility] Comment on above: Performed By: #### H BA1E #### [address] [address] HbA1c (Bld) [Mass fraction] 6.9 % Abnormal [facility]3] Comment on above: Result Comment: Diag nosis of Diabetes-Adults Non-Diabetic: < or = 5.6% Increased risk for developing diabetes: 5.7-6.4% Diagnostic of diabetes: > or = 6.5% . Monitoring of Diabetes Age (y) Therapeutic Goal (%) Adults: >18 <7.0 Pediatrics: 13-18 <7.5 7-12 <8.0 0- 6 7.5-8.5 [employer]. Diabetes Care 33(S1), Mar 2009. Performed By: #### H BA1E #### [address] [address] LIPID PANEL (CORONARY RISK 2 )on 01-10-2022 Cholesterol [Mass/Vol] 105 mg/dL Normal 0 - 199 [facility]3] Comment on above: Result Comment: . AGE [...] dosing. Performed By: #### L IPID #### [address] [address] Cholesterol in HDL [Mass/Vol] 40.0 mg/dL Normal [facility]3] Comment on above: Result Comment: . AGE VERY LOW LOW NORMAL HIGH 0-19 Y < 35 < 40 40-45 ---- 20-24 Y ---- < 40 >45 ---- >24 Y ---- < 40 40-60 >60 . Performed By: #### L IPID #### [address] [address] Cholesterol in LDL [Mass/Vol] 41 mg/dL Normal 0 - 99 [facility]3] Comment on above: Result Comment: . NEAR BORD AGE DESIRABLE OPTIMAL HIGH HIGH VERY HIGH 0-19 Y 0 - 109 --- 110-129 >/= 130 ---- 20-24 Y 0 - 119 --- 120-159 >/= 160 ---- >24 Y 0 - 99 100-129 130-159 160-189 >/=190 . Performed By: #### L IPID #### [address] [address] Cholesterol in VLDL [Mass/Vol] 24 mg/dL Normal 0 - 40 [facility]3] Comment on above: Performed By: #### L IPID #### [address] [address] Cholesterol.total/Cho lesterol in HDL [Mass ratio] 2.6 {ratio} Normal [facility]3] Comment on above: Result Comment: REF VALUES DESIRABLE < 3.4 HIGH RISK > 5.0 Performed By: #### L IPID #### [address] [address] Triglyceride [Mass/Vol] 121 mg/dL Normal 0 - 149 [facility]3] Comment on above: Result Comment: . AGE [...] dosing. Performed By: #### L IPID #### [address] [address] PROSTATE SPECIFIC AGon 01-10 Prostate specific Ag [Mass/Vol] ng/mL Critically low 0.00 - 4.00 [facility]3] Comment on above: Result Comment: The FDA requires that the method used for PSA assay be reported to the physician. Values obtained with different assay methods must not be used interchangeably. This test was performed at [facility] using the [employer] PSA assay is a two-site immunoenzymatic sandwich assay. The assay is approved for measurement of prostate-specific antigen (PSA)in serum and may be used in conjunction with a digital rectal examination in men 50 years and older as an aid in detection of prostate cancer. 1-Yhheu-ujlzfoowh inhibitors (e.g. Proscar, Finasteride, Avodart, Dutasteride and Yessica) for the treatment of BPH have been shown to lower PSA levels by an average of 50% after 6 months of treatment. Performed By: #### P SA #### [address] [address] TSH WITH REFLEX TO FREE T4 I F ABNORMALon 01-10-2022 TSH Qn 1.29 m[IU]/L Normal 0.44 - 3.98 [facility] Comment on above: Result Comment: TSH testing is performed using different testing methodology at [facility] than at other [facility]. Direct result comparisons should only be made within the same method. Performed By: #### T HYDS #### [address] [address] Absolute lymphocyte counton 12-06-2021 Lymphocytes Auto (Unsp spec) [#/Vol] 2.47 10*3/uL 0.83-4.51 [facility] [place] Work Phone: Basophil percentageon 2021 Basophils/100 WBC (Bld) 0.5 % 0-1 [facility] Work Phone: Chloride [Moles/Vol] 101 mmol/L 98-107 [facility] Work Phone: Eosinophils/100 WBC (Bld) 2.4 % 0-5 [facility] [place] Work Phone: Glucose [Mass/Vol] 128 mg/dL 74-106 [facility] Work Phone: Comment on above: Fasting Glucose resu lt greater than or equal to 126 mg/dL suggests DIABETES MELLITUS per A.D.A. criteria. Neutrophils (Bld) [#/Vol] 3.8 10*3/uL 2.0-7.7 [facility] [place] Work Phone: Neutrophils/100 WBC (Bld) 51.5 % 47-70 [facility] Work Phone: Potassium [Moles/Vol] 3.8 mmol/L 3.5-5.1 [facility] Work Phone: Sodium [Moles/Vol] 138 mmol/L 136-145 [facility] Work Phone: [phone] WBC (Bld) [#/Vol] 7.4 10*3/uL 4.4-11.0 [facility] Work Phone: Blood erythrocytes count (nu mber/volume)on 12-06-2021 RBC (Bld) [#/Vol] 5.30 10*6/uL 4.6-6.2 [facility] Work Phone: Blood hemoglobin measurement (mass/volume)on 12-06-2021 Hemoglobin (Bld) [Mass/Vol] 15.9 g/dL 13.0-16.5 [facility] [place] Work Phone: Blood lymphocytes/100 leukoc yteson 12-06-2021 Lymphocytes/100 WBC (Bld) 33.3 % 19-41 [facility] [place] Work Phone: [phone] Blood monocytes/100 leukocyt eson 12-06-2021 Monocytes/100 WBC (Bld) 12.0 % 0-10 [facility] Work Phone: [phone] Blood platelet mean volumeon 12-06-2021 Platelet mean volume (Bld) [Entitic vol] 9.6 fL 6.2-12.0 [facility] Work Phone: [phone] Determination of erythrocyte mean corpuscular volume (MCV)on 12-06-2021 MCV (RBC) [Entitic vol] 89.2 fL 80-94 [facility] [place] Work Phone: Hematocrit Auto (Bld) [Volum e fraction]on 12-06-2021 Hematocrit (Bld) [Volume fraction] 47.3 % 40-54 [facility] [place] Work Phone: Laboratory - Chemistry and C hemistry - challengeon 12-06-2021 CO2 [Moles/Vol] 30.0 mmol/L 21.0-32.0 [facility] [place] Work Phone: [phone] Magnesium [Mass/Vol] 1.4 mg/dL 1.6-2.6 [facility] Work Phone: [phone] Urea nitrogen/Creatinine [Mass ratio] 21.6 mg/mg 10-20 [facility] [place] Work Phone: [phone] Laboratory - Hematology and Cell countson 12-06-2021 Erythrocyte distribution width (RBC) [Entitic vol] 42.6 fL 35.1-43.9 [facility] [place] Work Phone: [phone] Erythrocyte distribution width (RBC) [Ratio] 13.1 % 11.6-14.6 [facility] [place] Work Phone: [phone] Immature granulocytes/100 WBC (Bld) 0.300 % 0.0-0.9 [facility] [place] Work Phone: [phone] Comment on above: IG% - Immature Granu locytes (promyelocytes, myelocytes and metamyelocytes) > 1% indicates that a LEFT SHIFT is Present. MCH (RBC) [Entitic mass] 30.0 pg 27.0-32.0 [facility] [place] Work Phone: [phone] Nucleated RBC/100 WBC (Bld) [Ratio] 0 % 0-5 [facility] [place] Work Phone: [phone] MCHC Auto (RBC) [Mass/Vol]on 12-06-2021 MCHC (RBC) [Mass/Vol] 33.6 g/dL 32-36 [facility] Work Phone: [phone] No Panel Informationon 12-06 Estimated Creatinine Clearance Calc 55.72 ml/min [facility] [place] Work Phone: [phone] Estimated GFR (MDRD) Amer 82 mL/min >60 [facility] [place] Work Phone: [phone] Comment on above: GFR Calc Estimated GFR (MDRD) Non-Af Amer 68 mL/min >60 [facility] [place] Work Phone: [phone] Comment on above: Non- GFR Calc Troponin I High Sensitivity 6 pg/mL 3.0-78.0 [facility] [place] Work Phone: [phone] Comment on above: Please Note: New [place] t Units and Gender Specific Reference Ranges. For more information see Policy Stat Procedure [place] High Sensitivity Troponin (TNIH) and attachments. Platelets bldon 12-06-2021 Platelets (Bld) [#/Vol] 198 10*3/uL 150-450 [facility] [place] Work Phone: Serum or plasma calcium lisa urement (mass/volume)on 12-06-2021 Calcium [Mass/Vol] 9.3 mg/dL 8.5-10.1 [facility] Work Phone: Serum or plasma creatinine m easurement (mass/volume)on 12-06-2021 Creatinine [Mass/Vol] 1.11 mg/dL 0.70-1.30 [facility] Work Phone: Comment on above: The validity of the calculated GFR & GFRAA in patients over 70 years has not been determined. Clinical correlation is essential. 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 Normal [facility] BASIC METABOLIC PANELon 04-3 Anion gap [Moles/Vol] 13 mmol/L Normal 10 - 20 [facility]3] Comment on above: Performed By: #### B MP #### [address] [address] Calcium [Mass/Vol] 9.4 mg/dL Normal 8.6 - 10.3 [facility] Comment on above: Performed By: #### B MP #### [address] [address] Chloride [Moles/Vol] 98 mmol/L Normal 98 - 107 [facility] Comment on above: Performed By: #### B MP #### [address] [address] Creatinine [Mass/Vol] 1.07 mg/dL Normal 0.50 - 1.30 [facility]3] Comment on above: Performed By: #### B MP #### [address] [address] GFR/1.73 sq M.predicted among non-blacks MDRD (S/P/Bld) [Vol rate/Area] 70 mL/min/{1.73_m2} Normal >90 [facility]3] Comment on above: Result Comment: CALC ULATIONS OF ESTIMATED GFR ARE PERFORMED USING THE 2020 CKD-EPI STUDY REFIT EQUATION WITHOUT THE RACE VARIABLE FOR THE IDMS-TRACEABLE CREATININE METHODS. https://jasn.asnjournals.org/content/early/ASN.724028 2029 Performed By: #### B MP #### [address] [address] Glucose [Mass/Vol] 143 mg/dL High 74 - 99 [facility] Comment on above: Performed By: #### B MP #### [address] [address] HCO3 (Bld) [Moles/Vol] 29 mmol/L Normal 21 - 32 [facility]3] Comment on above: Performed By: #### B MP #### [address] [address] Potassium [Moles/Vol] 4.7 mmol/L Normal 3.5 - 5.3 [facility]3] Comment on above: Performed By: #### B MP #### [address] [address] Sodium [Moles/Vol] 135 mmol/L Low 136 - 145 [facility] Comment on above: Performed By: #### B MP #### [address] [address] Urea nitrogen [Mass/Vol] 25 mg/dL High 6 - 23 [facility]3] Comment on above: Performed By: #### B MP #### [address] [address] HEMOGLOBIN A1Con 07-05-2021 Glucose [Mass/Vol] 157 mg/dL Normal [facility] Comment on above: Performed By: #### H BA1E #### [address] [address] HbA1c (Bld) [Mass fraction] 7.1 % Abnormal [facility]3] Comment on above: Result Comment: Diag nosis of Diabetes-Adults Non-Diabetic: < or = 5.6% Increased risk for developing diabetes: 5.7-6.4% Diagnostic of diabetes: > or = 6.5% . Monitoring of Diabetes Age (y) Therapeutic Goal (%) Adults: >18 <7.0 Pediatrics: 13-18 <7.5 7-12 <8.0 0- 6 7.5-8.5 [employer]. Diabetes Care 33(S1), Mar 2009. Performed By: #### H BA1E #### [facility] [address] [id number] Hemoglobin A1Con 07-05-2021 Glucose [Mass/Vol] 157 mg/dL [facility] Work Phone: HbA1c (Bld) [Mass fraction] 7.1 % Abnormal [facility] Work Phone: Comment on above: Diagnosis of Diabete s-Adults Non-Diabetic: < or = 5.6% Increased risk for developing diabetes: 5.7-6.4% Diagnostic of diabetes: > or = 6.5%. Monitoring of Diabetes Age (y) Therapeutic Goal (%) Adults: >18 <7.0 Pediatrics: 13-18 <7.5 7-12 <8.0 0- 6 7.5-8.5 [employer]. Diabetes Care 33(S1), Mar 2009. Laboratory - Chemistry and C hemistry - challengeon 07-05-2021 Anion gap [Moles/Vol] 13 mmol/L 10 - 20 [facility] Work Phone: Calcium [Mass/Vol] 9.4 mg/dL 8.6 - 10.3 [facility] Work Phone: Chloride [Moles/Vol] 98 mmol/L 98 - 107 [facility] Work Phone: CO2 [Moles/Vol] 29 mmol/L 21 - 32 [facility] Work Phone: Creatinine [Mass/Vol] 1.07 mg/dL See Below [facility] Work Phone: Comment on above: Reference Range: 0.5 0 - 1.30 Glucose [Mass/Vol] 143 mg/dL above high threshold 74 - 99 [facility] Work Phone: Potassium [Moles/Vol] 4.7 mmol/L 3.5 - 5.3 [facility] Work Phone: Sodium [Moles/Vol] 135 mmol/L below low threshold 136 - 145 [facility] Work Phone: Urea nitrogen [Mass/Vol] 25 mg/dL above high threshold [facility] Work Phone: No Panel Informationon 07-05 70 {mL/min/1.73m2} >90 [facility] Work Phone: Comment on above: CALCULATIONS OF JORGE MATED GFR ARE PERFORMED USING THE 2020 CKD-EPI STUDY REFIT EQUATION WITHOUT THE RACE VARIABLE FOR THE IDMS-TRACEABLE CREATININE METHODS.https://jasn.asnjournals.org/content/early// N.1731703631 VITAMIN B12on 07-05-2021 Cobalamin (Vitamin B12) [Mass/Vol] 278 pg/mL Normal 211 - 911 [facility]3] Comment on above: Performed By: #### V TB12 #### [facility] [address] [place] [address] Vitamin B12, Serumon 022 Cobalamin (Vitamin B12) [Mass/Vol] 278 pg/mL 211 - 911 [facility] Work Phone: Tobacco Screening.on 021 Fall risk assessment a) No falls within the last year [facility] Work Phone: Tobacco use status CPHS b) No [facility] Work Phone: Hemoglobin A1Con 12-28-2020 Glucose [Mass/Vol] 160 mg/dL [facility] Work Phone: HbA1c (Bld) [Mass fraction] 7.2 % Abnormal [facility] Work Phone: Comment on above: Diagnosis of Diabete s-Adults Non-Diabetic: < or = 5.6% Increased risk for developing diabetes: 5.7-6.4% Diagnostic of diabetes: > or = 6.5%. Monitoring of Diabetes Age (y) Therapeutic Goal (%) Adults: >18 <7.0 Pediatrics: 13-18 <7.5 7-12 <8.0 0- 6 7.5-8.5 [employer]. Diabetes Care 33(S1), Mar 2009. Laboratory - Chemistry and C hemistry - challengeon 12-28-2020 Albumin BCP dye [Mass/Vol] 4.2 g/dL 3.4 - 5.0 [facility] Work Phone: ALP [Catalytic activity/Vol] 52 U/L 33 - 136 [facility] Work Phone: [phone] ALT With P-5'-P [Catalytic activity/Vol] 18 U/L 10 - 52 [facility] Work Phone: [phone] Comment on above: Patients treated wit h Sulfasalazine may generate falsely decreased results for ALT. Anion gap [Moles/Vol] 12 mmol/L 10 - 20 [facility] Work Phone: AST With P-5'-P [Catalytic activity/Vol] 17 U/L 9 - 39 [facility] Work Phone: Bilirubin [Mass/Vol] 0.6 mg/dL 0.0 - 1.2 [facility] Work Phone: Calcium [Mass/Vol] 9.7 mg/dL 8.6 - 10.3 [facility] Work Phone: Chloride [Moles/Vol] 100 mmol/L 98 - 107 [facility] Work Phone: CO2 [Moles/Vol] 29 mmol/L 21 - 32 [facility] Work Phone: Creatinine [Mass/Vol] 0.94 mg/dL See Below [facility] Work Phone: Comment on above: Reference Range: 0.5 0 - 1.30 Glucose [Mass/Vol] 155 mg/dL above high threshold 74 - 99 [facility] Work Phone: Potassium [Moles/Vol] 4.0 mmol/L 3.5 - 5.3 [facility] Work Phone: Protein [Mass/Vol] 6.9 g/dL 6.4 - 8.2 [facility] Work Phone: Sodium [Moles/Vol] 137 mmol/L 136 - 145 [facility] Work Phone: [phone] Urea nitrogen [Mass/Vol] 18 mg/dL 6 - 23 [facility] Work Phone: [phone] Laboratory - Hematology and Cell countson 12-28-2020 Erythrocyte distribution width (RBC) [Ratio] 14.4 % See Below [facility] Work Phone: [phone] Comment on above: Reference Range: 11. 5 - 14.5 Hematocrit (Bld) [Volume fraction] 45.8 % See Below [facility] Work Phone: [phone] Comment on above: Reference Range: 41. 0 - 52.0 Hemoglobin (Bld) [Mass/Vol] 15.2 g/dL See Below [facility] Work Phone: [phone] Comment on above: Reference Range: 13. 5 - 17.5 MCHC (RBC) [Mass/Vol] 33.3 g/dL See Below [facility] Work Phone: [phone] Comment on above: Reference Range: 32. 0 - 36.0 MCV (RBC) [Entitic vol] 89 fL 80 - 100 [facility] Work Phone: [phone] Platelets (Bld) [#/Vol] 192 10*3/uL 150 - 450 [facility] Work Phone: [phone] RBC (Bld) [#/Vol] 5.12 {x10E12/L} See Below [facility] Work Phone: [phone] Comment on above: Reference Range: 4.5 0 - 5.90 WBC (Bld) [#/Vol] 5.1 10*3/uL 4.4 - 11.3 [facility] Work Phone: [phone] Lipid Panelon 12-28-2020 Cholesterol [Mass/Vol] 106 mg/dL 0 - 199 [facility] Work Phone: [phone] Comment on above: . AGE DESIRABLE BORD AVINASH HIGH HIGH 0-19 Y 0 - 169 170 - 199 >/= 200 20-24 Y 0 - 189 190 - 224 >/= 225 >24 Y 0 - 199 200 - 239 >/= 240 All ranges are based on fasting samples. Specific therapeutic targets will vary based on patient-specific cardiac risk.. Pediatric guidelines reference:Pediatrics 2011, 128(S5). Adult guidelines reference: NCEP ATPIII Guidelines, VIRGILIO 2001, 258:6206-97. Venipuncture immediately after or during the administration of Metamizole may lead to falsely low results. Testing should be performed immediately prior to Metamizole dosing. Cholesterol in HDL [Mass/Vol] 38.0 mg/dL Abnormal [facility] Work Phone: Comment on above: . AGE VERY LOW LOW N ORMAL HIGH 0-19 Y < 35 < 40 40-45 ---- 20- 24 Y ---- < 40 >45 ---- >24 Y ---- < 40 40-60 >60. Cholesterol in LDL [Mass/Vol] 51 mg/dL 0 - 99 [facility] Work Phone: Comment on above: . NEAR BORD AGE ALISHA RABLE OPTIMAL HIGH HIGH VERY HIGH 0-19 Y 0 - 109 --- 110-129 >/= 130 ---- 20-24 Y 0 - 119 --- 120-159 >/= 160 ---- >24 Y 0 - 99 100-129 130-159 160-189 >/=190. Cholesterol.total/Cho lesterol in HDL [Mass ratio] 2.8 {ratio} [facility] Work Phone: Comment on above: REF VALUESDESIRABLE < 3.4HIGH RISK > 5.0 Triglyceride [Mass/Vol] 85 mg/dL 0 - 149 [facility] Work Phone: Comment on above: . AGE DESIRABLE BORD AVINASH HIGH HIGH VERY HIGH 0 D-90 D [...] Lipid Panel 17 mg/dL 0 - 40 [facility] Work Phone: No Panel Informationon 12-28 >60 >60 [facility] Work Phone: Comment on above: CALCULATIONS OF JORGE MATED GFR ARE PERFORMED USING THE MDRD STUDY EQUATION FOR THE IDMS-TRACEABLE CREATININE METHODS. CLIN CHEM 2007;53:766-72 Prostate Specific Antigenon 12-28-2020 Prostate specific Ag [Mass/Vol] ng/mL See Below -[facility] Work Phone: Comment on above: Reference Range: 0.0 0 - 4.00The FDA requires that the method used for PSA assay be reported to the physician. Values obtained with different assay methods must not be used interchangeably. This testwas performed at [facility] using the [employer] PSA assay is a two-site immunoenzymatic sandwich assay. The assay is approved for measurement of prostate-specific antigen (PSA)in serum and may be used in conjunction with a digital rectal examination in men 50 years and older as an aid in detection of prostate cancer.8-Fbhvp-iaeqbofzi inhibitors (e.g. Proscar, Finasteride, Avodart, Dutasteride and Yessica) for the treatment of BPH have been shown to lower PSA levels by an average of 50% after 6 months of treatment. Vitamin B12, Serumon 021 Cobalamin (Vitamin B12) [Mass/Vol] 291 pg/mL 211 - 911 [facility] Work Phone: MRI Brain w/wo Contraston MR Brain WO and W contrast IV Interpreted by: NEYDA PANCHAL06/18/20 15:43MRN: [id number] Name: ALL YOUNG STUDY:MRI BRAIN W/WO CONTRAST; 06/18/2020 2:58 pm INDICATION:Memory loss NO TO MRI QUESTION. COMPARISON:None. ORDERING CLINICIAN:JAKE DUQUE TECHNIQUE:Axial T2, FLAIR, DWI, gradient echo T2 and sagittal and coronal [id number] images of brain were acquired. Contrast was [...] signed by: NEYDA PANCHAL 06/18/20 15:43 Normal -[facility] Work Phone: Comment on above: ORDER REVISED TO A N R MRI BRAIN W/WO CONTRAST BY RADIOLOGIST; Original Order Number: [id number] NR MRI BRAIN W/WO CONTRASTon 06-18-2020 NR MRI BRAIN W/WO CONTRAST Patient Name: ALL YOUNG STUDY: MRI BRAIN W/WO CONTRAST; 06/18/2020 2:58 pm INDICATION: Memory loss NO TO MRI QUESTION. COMPARISON: None. ACCESSION NUMBER(S): [id number] ORDERING CLINICIAN: JAKE DUQUE TECHNIQUE: Axial T2, [...] left subinsular region Electronically signed by: NEYDA PANCAHL MD Normal [facility] BASIC METABOLIC PANELon 03-2 Anion gap [Moles/Vol] 14 mmol/L Normal 10 - 20 [facility] Comment on above: Performed By: #### B MP #### [address] [address] Calcium [Mass/Vol] 9.3 mg/dL Normal 8.6 - 10.3 [facility] Comment on above: Performed By: #### B MP #### [address] [address] Chloride [Moles/Vol] 98 mmol/L Normal 98 - 107 [facility] Comment on above: Performed By: #### B MP #### [address] [address] Creatinine [Mass/Vol] 0.99 mg/dL Normal 0.50 - 1.30 [facility] Comment on above: Performed By: #### B MP #### [address] [address] GFR- AM. >60 Normal >60 [facility] Comment on above: Result Comment: CALC ULATIONS OF ESTIMATED GFR ARE PERFORMED USING THE MDRD STUDY EQUATION FOR THE IDMS-TRACEABLE CREATININE METHODS. CLIN CHEM 2007;53:766-72 Performed By: #### B MP #### [address] [address] GFR-NON AM. >60 Normal >60 [facility] Comment on above: Performed By: #### B MP #### [address] [address] Glucose [Mass/Vol] 161 mg/dL High 74 - 99 [facility] Comment on above: Performed By: #### B MP #### [address] [address] HCO3 (Bld) [Moles/Vol] 25 mmol/L Normal 21 - 32 [facility] Comment on above: Performed By: #### B MP #### [address] [address] Potassium [Moles/Vol] 4.2 mmol/L Normal 3.5 - 5.3 [facility] Comment on above: Performed By: #### B MP #### [address] [address] Sodium [Moles/Vol] 133 mmol/L Low 136 - 145 [facility] Comment on above: Performed By: #### B MP #### [address] [address] Urea nitrogen [Mass/Vol] 21 mg/dL Normal 6 - [facility] Comment on above: Performed By: #### B MP #### [address] [address] HEMOGLOBIN A1Con 05-29-2020 Glucose [Mass/Vol] 186 mg/dL Normal [facility] Comment on above: Performed By: #### H BA1E #### [address] [address] HbA1c (Bld) [Mass fraction] 8.1 % Normal [facility] Comment on above: Result Comment: Diag nosis of Diabetes-Adults Non-Diabetic: < or = 5.6% Increased risk for developing diabetes: 5.7-6.4% Diagnostic of diabetes: > or = 6.5% . Monitoring of Diabetes Age (y) Therapeutic Goal (%) Adults: >18 <7.0 Pediatrics: 13-18 <7.5 7-12 <8.0 0- 6 7.5-8.5 [employer]. Diabetes Care 33(S1), Mar 2009. Performed By: #### H BA1E #### [address] [address] Hemoglobin A1Con 05-29-2020 HbA1c (Bld) [Mass fraction] 8.1 % [facility] Work Phone: Comment on above: Diagnosis of Diabete s-Adults Non-Diabetic: < or = 5.6% Increased risk for developing diabetes: 5.7-6.4% Diagnostic of diabetes: > or = 6.5%. Monitoring of Diabetes Age (y) Therapeutic Goal (%) Adults: >18 <7.0 Pediatrics: 13-18 <7.5 7-12 <8.0 0- 6 7.5-8.5 [employer]. Diabetes Care 33(S1), Mar 2009. HbA1c (Bld) [Mass fraction] 186 {MG/DL} [facility] Work Phone: Metabolic Panelon 05-29-2020 Anion gap [Moles/Vol] 14 mmol/L 10 - 20 [facility] Work Phone: Calcium [Mass/Vol] 9.3 mg/dL 8.6 - 10.3 [facility] Work Phone: Chloride [Moles/Vol] 98 mmol/L 98 - 107 [facility] Work Phone: CO2 [Moles/Vol] 25 mmol/L 21 - 32 [facility] Work Phone: Creatinine [Mass/Vol] 0.99 mg/dL See Below [facility] Work Phone: Comment on above: Reference Range: 0.5 0 - 1.30 Glucose [Mass/Vol] 161 mg/dL above high threshold 74 - 99 [facility] Work Phone: Potassium [Moles/Vol] 4.2 mmol/L 3.5 - 5.3 [facility] Work Phone: Sodium [Moles/Vol] 133 mmol/L below low threshold 136 - 145 [facility] Work Phone: Urea nitrogen [Mass/Vol] 21 mg/dL 6 - 23 [facility] Work Phone: Otheron 05-29-2020 >60 >60 [facility] Work Phone: Comment on above: CALCULATIONS OF JORGE MATED GFR ARE PERFORMED USING THE MDRD STUDY EQUATION FOR THE IDMS-TRACEABLE CREATININE METHODS. CLIN CHEM 2007;53:766-72 2 1 [facility] Work Phone: Comment on above: What year is it: Cor rect - 0 pointsWhat month is it: Correct - 0 pointsAbout what time is it (within one hour): Correct - 0 pointsCount backwards from 20 to 1: One error - 2 pointsSay the months of the year in reverse: Correct - 0 pointsRepeat address phrase: Correct - 0 points Normal - referral no t necessary at present [facility] Work Phone: TSH WITH REFLEX TO FREE T4 I F ABNORMALon 05-29-2020 TSH Qn 1.41 m[IU]/L Normal 0.44 - 3.98 [facility] Comment on above: Result Comment: TSH testing is performed using different testing methodology at [facility] than at other [facility]. Direct result comparisons should only be made within the same method. Performed By: #### T HYDS #### [address] [address] Thyroidon 05-29-2020 TSH Qn 1.41 {mIU/L} See Below [facility] Work Phone: Comment on above: Reference Range: 0.4 4 - 3.98 TSH testing is performed using different testing methodology at [facility] than at other [facility]. Direct result comparisons should only be made within the same method. ALBUMIN, URINE SPOTon 2019 ALBUMIN,URINE 12.0 mg/L Normal Not Established [facility] Comment on above: Performed By: #### A LBSP #### [address] [address] ALBUMIN/CREAT RATIO 12.4 ug/mg credentialer Normal 0.0 - 30.0 [facility] Comment on above: Performed By: #### A LBSP #### [address] [address] CREATININE,URINE 97.0 mg/dL Normal 20.0 - 370.0 [facility] Comment on above: Performed By: #### A LBSP #### [address] [address] COMPREHENSIVE PANELon 2019 Albumin [Mass/Vol] 4.3 g/dL Normal 3.4 - 5.0 [facility] Comment on above: Performed By: #### C MP #### [address] [address] ALP [Catalytic activity/Vol] 57 U/L Normal 33 - 136 [facility] Comment on above: Performed By: #### C MP #### [address] [address] ALT [Catalytic activity/Vol] 18 U/L Normal 10 - 52 [facility] Comment on above: Result Comment: [place] ents treated with Sulfasalazine may generate falsely decreased results for ALT. Performed By: #### C MP #### [address] [address] Anion gap [Moles/Vol] 11 mmol/L Normal 10 - 20 [facility] Comment on above: Performed By: #### C MP #### [address] [address] AST [Catalytic activity/Vol] 15 U/L Normal 9 - 39 [facility] Comment on above: Performed By: #### C MP #### [address] [address] Bilirubin [Mass/Vol] 0.4 mg/dL Normal 0.0 - 1.2 [facility] Comment on above: Performed By: #### C MP #### [address] [address] Calcium [Mass/Vol] 9.3 mg/dL Normal 8.6 - 10.3 [facility] Comment on above: Performed By: #### C MP #### [address] [address] Chloride [Moles/Vol] 97 mmol/L Low 98 - 107 [facility] Comment on above: Performed By: #### C MP #### [address] [address] Creatinine [Mass/Vol] 0.95 mg/dL Normal 0.50 - 1.30 [facility] Comment on above: Performed By: #### C MP #### [address] [address] GFR- AM. >60 Normal >60 [facility] Comment on above: Result Comment: CALC ULATIONS OF ESTIMATED GFR ARE PERFORMED USING THE MDRD STUDY EQUATION FOR THE IDMS-TRACEABLE CREATININE METHODS. CLIN CHEM 2007;53:766-72 Performed By: #### C MP #### [address] [address] GFR-NON AM. >60 Normal >60 [facility] Comment on above: Performed By: #### C MP #### [address] [address] Glucose [Mass/Vol] 150 mg/dL High 74 - 99 [facility] Comment on above: Performed By: #### C MP #### [address] [address] HCO3 (Bld) [Moles/Vol] 30 mmol/L Normal 21 - 32 [facility] Comment on above: Performed By: #### C MP #### [address] [address] Potassium [Moles/Vol] 4.3 mmol/L Normal 3.5 - 5.3 [facility] Comment on above: Performed By: #### C MP #### [address] [address] Protein [Mass/Vol] 6.9 g/dL Normal 6.4 - 8.2 [facility] Comment on above: Performed By: #### C MP #### [address] [address] Sodium [Moles/Vol] 134 mmol/L Low 136 - 145 [facility] Comment on above: Performed By: #### C MP #### [address] [address] Urea nitrogen [Mass/Vol] 22 mg/dL Normal 6 - 23 [facility] Comment on above: Performed By: #### C MP #### [address] [address] HEMOGLOBIN A1Con 01-06-2020 Glucose [Mass/Vol] 183 mg/dL Normal [facility] Comment on above: Performed By: #### H BA1E #### [address] [address] HbA1c (Bld) [Mass fraction] 8.0 % Normal [facility] Comment on above: Result Comment: Diag nosis of Diabetes-Adults Non-Diabetic: < or = 5.6% Increased risk for developing diabetes: 5.7-6.4% Diagnostic of diabetes: > or = 6.5% . Monitoring of Diabetes Age (y) Therapeutic Goal (%) Adults: >18 <7.0 Pediatrics: 13-18 <7.5 7-12 <8.0 0- 6 7.5-8.5 [employer]. Diabetes Care 33(S1), Mar 2009. Performed By: #### H BA1E #### [address] [address] LIPID PANEL (CORONARY RISK 2 )on 01-06-2020 Cholesterol [Mass/Vol] 96 mg/dL Normal 0 - 199 [facility] Comment on above: Result Comment: . [...] dosing. Performed By: #### L IPID #### [address] [address] Cholesterol in HDL [Mass/Vol] 34.0 mg/dL Abnormal [facility] Comment on above: Result Comment: . AGE VERY LOW LOW NORMAL HIGH 0-19 Y < 35 < 40 40-45 ---- 20-24 Y ---- < 40 >45 ---- >24 Y ---- < 40 40-60 >60 . Performed By: #### L IPID #### [address] [address] Cholesterol in LDL [Mass/Vol] 30 mg/dL Normal 0 - 99 [facility] Comment on above: Result Comment: . NEAR BORD AGE DESIRABLE OPTIMAL HIGH HIGH VERY HIGH 0-19 Y 0 - 109 --- 110-129 >/= 130 ---- 20-24 Y 0 - 119 --- 120-159 >/= 160 ---- >24 Y 0 - 99 100-129 130-159 160-189 >/=190 . Performed By: #### L IPID #### [address] [address] Cholesterol in VLDL [Mass/Vol] 32 mg/dL Normal 0 - 40 [facility] Comment on above: Performed By: #### L IPID #### [address] [address] Cholesterol.total/Cho lesterol in HDL [Mass ratio] 2.8 {ratio} Normal [facility] Comment on above: Result Comment: REF VALUES DESIRABLE < 3.4 HIGH RISK > 5.0 Performed By: #### L IPID #### [address] [address] Triglyceride [Mass/Vol] 162 mg/dL High 0 - 149 [facility] Comment on above: Result Comment: . [...] dosing. Performed By: #### L IPID #### [address] [address] PROSTATE SPECIFIC AGon 01-05 Prostate specific Ag [Mass/Vol] ng/mL Normal 0.00 - 4.00 [facility] Comment on above: Result Comment: The FDA requires that the method used for PSA assay be reported to the physician. Values obtained with different assay methods must not be used interchangeably. This test was performed at [facility] using the [employer] PSA assay is a two-site immunoenzymatic sandwich assay. The assay is approved for measurement of prostate-specific antigen (PSA)in serum and may be used in conjunction with a digital rectal examination in men 50 years and older as an aid in detection of prostate cancer. 1-Mvohq-xmuquohab inhibitors (e.g. Proscar, Finasteride, Avodart, Dutasteride and Yessica) for the treatment of BPH have been shown to lower PSA levels by an average of 50% after 6 months of treatment. Performed By: #### P SA #### [address] [address] VITAMIN B12on 01-06-2020 Cobalamin (Vitamin B12) [Mass/Vol] 323 pg/mL Normal 211 - 911 [facility] Comment on above: Performed By: #### V TB12 #### [address] [address] BMPon 07-02-2018 Anion gap molar conc 11 mmol/L Normal 10-20 [facility] Comment on above: Performed By: #### 2 [id number] #### [employer] [address] [place] [address] Calcium mass conc 9.6 mg/dL Normal 8.6-10.3 [facility] Comment on above: Performed By: #### 2 [id number] #### [employer] [address] [place] [address] Chloride molar conc 100 mmol/L Normal 98-107 [facility] Comment on above: Performed By: #### 2 [id number] #### [employer] [address] [place] [address] CO2 molar conc 29.0 mmol/L Normal 21.0-32.0 [facility] Comment on above: Performed By: #### 2 [id number] #### [employer] [employer] [address] [place] [address] Creatinine mass conc 1.0 mg/dL Normal 0.5-1.3 [facility] Comment on above: Performed By: #### 2 [id number] #### [employer] [employer] [address] [place] [address] Glucose mass conc 186 mg/dL High 70-99 [facility] Comment on above: Performed By: #### 2 [id number] #### [employer] [employer] [address] [place] [address] Potassium molar conc 4.6 mmol/L Normal 3.5-5.3 [facility] Comment on above: Performed By: #### 2 [id number] #### [employer] [employer] [address] [place] [address] Sodium molar conc 135 mmol/L Low 136-145 [facility] Comment on above: Performed By: #### 2 [id number] #### [employer] [employer] [address] [place] [address] Urea nitrogen mass conc 20 mg/dL Normal 6-23 [facility] Comment on above: Performed By: #### 2 [id number] #### [employer] [employer] [address] [place] [address] Urea nitrogen/Creatinine mass ratio 20.0 ratio Normal 5.4-30.0 [facility] Comment on above: Performed By: #### 2 [id number] #### [employer] [facility] [place] [address] [id number] 07-02-2018 Hemoglobin A1c/Hemoglobin.total mass fraction (Bld) 8.3 % High 4.0-6.3 [facility] Comment on above: Performed By: #### 3 [id number] #### [employer] Chemistry Manual Subsection [address] [place] [address] Microalb/Creat Ratioon 07-02 Creatinine mass conc 158.0 mg/dL Normal 20.0-300.0 [facility] Comment on above: Performed By: #### 1 [id number] #### [employer] [employer] [address] [place] [address] Creatinine mass conc 11 ug/mg Normal 0-30 [facility] Comment on above: Performed By: #### 1 [id number] #### [employer] [employer] [address] [place] [address] Ur Microalbumin 1.7 mg/dL Normal 0.0-1.9 [facility] Comment on above: Performed By: #### 1 [id number] #### [employer] [employer] [address] [place] [address] eGFRon 07-02-2018 GFR/1.73 sq M predicted among non-blacks MDRD vol rate/area (S/P/Bld) mL/min/{1.73_m2} Normal [facility] Comment on above: Order Comment: Order added by Discern Expert. Performed By: #### 1 [id number] #### [employer] [address] [place] [address] BMPon 01-08-2018 Anion gap molar conc 12 mmol/L Normal 10-20 [facility] Comment on above: Performed By: #### [id number] #### [facility] [employer] [address] [place] [address] Calcium mass conc 9.7 mg/dL Normal 8.6-10.3 [facility] Comment on above: Performed By: #### 2 [id number] #### [facility] [employer] [address] [place] [address] Chloride molar conc 96 mmol/L Low 98-107 [facility] Comment on above: Performed By: #### 2 [id number] #### [facility] [employer] [address] [place] [address] CO2 molar conc 29.0 mmol/L Normal 21.0-32.0 [facility] Comment on above: Performed By: #### 2 [id number] #### [facility] [employer] [address] [place] [address] Creatinine mass conc 1.0 mg/dL Normal 0.6-1.3 [facility] Comment on above: Performed By: #### 2 [id number] #### [facility] [employer] [address] [place] [address] Glucose mass conc 160 mg/dL High 70-99 [facility] Comment on above: Performed By: #### 2 [id number] #### [facility] [employer] [address] [place] [address] Potassium molar conc 4.4 mmol/L Normal 3.5-5.3 [facility] Comment on above: Performed By: #### 2 [id number] #### [facility] [employer] [address] [place] [address] Sodium molar conc 133 mmol/L Low 136-145 [facility] Comment on above: Performed By: #### 2 [id number] #### [facility] [employer] [address] [place] [address] Urea nitrogen mass conc 24 mg/dL High 6-23 [facility] Comment on above: Performed By: #### 2 [id number] #### [facility] [employer] [address] [place] [address] Urea nitrogen/Creatinine mass ratio 24.0 ratio Normal 5.4-30.0 [facility] Comment on above: Performed By: #### 2 [id number] #### [facility] [employer] [address] [place] [address] [id number] 01-08-2018 Hemoglobin A1c/Hemoglobin.total mass fraction (Bld) 8.3 % High 4.0-6.3 [facility] Comment on above: Performed By: #### 3 [id number] #### [facility] Chemistry Manual Subsection [address] [place] [address] Lipid Profileon 01-08-2018 Cholesterol in HDL mass conc 37 mg/dL Normal [facility] Comment on above: Performed By: #### 3 [id number] #### [facility] [employer] [address] [place] [address] Cholesterol in LDL mass conc 44 mg/dL Normal 0-130 [facility] Comment on above: Performed By: #### 3 [id number] #### [facility] [employer] [address] [place] [address] Cholesterol in VLDL mass conc 24 mg/dL Normal [facility] Comment on above: Performed By: #### 3 [id number] #### [facility] [employer] [address] [place] [address] Cholesterol mass conc 105 mg/dL Low 120-200 [facility] Comment on above: Performed By: #### 3 [id number] #### [facility] [employer] [address] [place] [address] Triglyceride mass conc 122 mg/dL Normal 0-150 [facility] Comment on above: Result Comment: [...] 200 - 499 Performed By: #### 3 [id number] #### [facility] [employer] [address] [place] [address] PSA Totalon 01-08-2018 PSA Total <0.10 Normal [facility] Comment on above: Performed By: #### 1 [id number] #### [facility] [employer] [address] [place] [address] eGFRon 01-08-2018 GFR/1.73 sq M predicted among non-blacks MDRD vol rate/area (S/P/Bld) mL/min/{1.73_m2} Normal [facility] Comment on above: Order Comment: Order added by Discern Expert. Performed By: #### 1 [id number] #### [facility] [employer] [address] [place] [address] ECG 12 Leadon 09-13-2017 Atrial Rate Invalid Interpretation Code [facility] [place] Invalid Interpretation Code [facility] P-R Interval Invalid Interpretation Code [facility] Q-T Interval Invalid Interpretation Code [facility] Q-T Interval (corrected) Invalid Interpretation Code [facility] QRS Duration Invalid Interpretation Code [facility] QTC Calculation (Bezet) Invalid Interpretation Code [facility] R [place] Invalid Interpretation Code [facility] T [place] Invalid Interpretation Code [facility] Ventricular Rate Invalid Interpretation Code [facility] Vital Signs Date Time Vital Sign Value Performing Clinician Facility 09-21-2024 06:51-0400 Body height 177.[address] Jake Duque MD Work Phone: [facility] 01-20-2024 14:57-0500 Body mass index (BMI) [Ratio] 22.63 kg/m2 Jake Duque MD Work Phone: [facility] 01-20-2024 14:57-0500 Body weight 68.49 kg Jake Duque MD Work Phone: [facility] 01-20-2024 14:57-0500 Diastolic blood pressure 77 mm[Hg] Jake Duque MD Work Phone: [facility] 01-20-2024 14:57-0500 Heart rate 77 /min Jake Duque MD Work Phone: [facility] 01-20-2024 14:57-0500 SaO2% (BldA) [Mass fraction] 96 % Jake Duque MD Work Phone: [facility] 01-20-2024 14:57-0500 Systolic blood pressure 118 mm[Hg] Jake Duque MD Work Phone: [facility] 07-20-2023 14:48-0400 Body height 174 cm Jake Duque MD Work Phone: [facility] 07-20-2023 14:48-0400 Body mass index (BMI) [Ratio] 23.08 kg/m2 Jake Duque MD Work Phone: [facility] 07-20-2023 14:48-0400 Body weight 69.85 kg Jake Duque MD Work Phone: [facility] 07-20-2023 14:48-0400 Diastolic blood pressure 72 mm[Hg] Jake Duque MD Work Phone: [facility] 07-20-2023 14:48-0400 Heart rate 72 /min Jake Duque MD Work Phone: [facility] 07-20-2023 14:48-0400 SaO2% (BldA) [Mass fraction] 96 % Jake Duque MD Work Phone: [facility] 07-20-2023 14:48-0400 Systolic blood pressure 122 mm[Hg] Jake Duque MD Work Phone: [facility] 02-23-2023 14:27-0500 Body mass index (BMI) [Ratio] 23.48 kg/m2 Jake Duque MD Work Phone: [facility] 02-23-2023 14:27-0500 Body weight 72.12 kg Jake Duque MD Work Phone: [facility] 02-23-2023 14:27-0500 Diastolic blood pressure 72 mm[Hg] Jake Duque MD Work Phone: [facility] 02-23-2023 14:27-0500 Heart rate 69 /min Jake Duque MD Work Phone: [facility] 02-23-2023 14:27-0500 SaO2% (BldA) [Mass fraction] 96 % Jake Duque MD Work Phone: [facility] 02-23-2023 14:27-0500 Systolic blood pressure 116 mm[Hg] Jake Duque MD Work Phone: [facility] 01-11-2023 15:30-0500 Body mass index (BMI) [Ratio] 24.07 kg/m2 Jake Duque MD Work Phone: [facility] 01-11-2023 15:30-0500 Body weight 73.94 kg Jake Duque MD Work Phone: [facility] 01-11-2023 15:30-0500 Diastolic blood pressure 70 mm[Hg] Jake Duque MD Work Phone: [facility] 01-11-2023 15:30-0500 Heart rate 73 /min Jake Duque MD Work Phone: [facility] 01-11-2023 15:30-0500 SaO2% (BldA) [Mass fraction] 97 % Jake Duque MD Work Phone: [facility] 01-11-2023 15:30-0500 Systolic blood pressure 122 mm[Hg] Jake Duque MD Work Phone: [facility] 07-07-2022 15:19-0400 Body height 175.3 cm Jake Duque MD Work Phone: [facility] 07-07-2022 15:19-0400 Body mass index (BMI) [Ratio] 25.84 kg/m2 Jake Duque MD Work Phone: [facility] 07-07-2022 15:19-0400 Body weight 79.38 kg Jake Duque MD Work Phone: [facility] 07-07-2022 15:19-0400 Diastolic blood pressure 78 mm[Hg] Jake Duque MD Work Phone: [facility] 07-07-2022 15:19-0400 Heart rate 79 /min Jake Duque MD Work Phone: [facility] 07-07-2022 15:19-0400 SaO2% (BldA) [Mass fraction] 96 % Jake Duque MD Work Phone: [facility] 07-07-2022 15:19-0400 Systolic blood pressure 110 mm[Hg] Jake Duque MD Work Phone: [facility] 02-17-2022 13:53-0500 Body height 175.26 cm Jake Duque Work Phone: [facility] Work Phone: 02-17-2022 13:53-0500 Body mass index (BMI) [Ratio] 24.96 kg/m2 Jake Faiht Duque Work Phone: [facility] Work Phone: 02-17-2022 13:53-0500 Body surface area Derived from formula 1.92 m2 Jake O Duque Work Phone: [facility] Work Phone: 02-17-2022 13:53-0500 Body weight 76.66 kg Jakejosé Rodgersyder Work Phone: [facility] Work Phone: 02-17-2022 13:53-0500 Diastolic blood pressure 76 mm[Hg] Jake O Duque Work Phone: [facility] Work Phone: 02-17-2022 13:53-0500 Heart rate 68 /min Jake Faith Moralezer Work Phone: [facility] Work Phone: 02-17-2022 13:53-0500 Systolic blood pressure 128 mm[Hg] Jake O Duque Work Phone: [facility] Work Phone: 12-06-2021 06:09-0400 Body temperature 98 [degF] [facility] Work Phone: 12-06-2021 06:09-0400 Diastolic blood pressure 82 mm[Hg] [facility] Work Phone: 12-06-2021 06:09-0400 Heart rate 61 /min [facility] Work Phone: 12-06-2021 06:09-0400 Respiratory rate 17 /min [facility] Work Phone: 12-06-2021 06:09-0400 SaO2% (BldA) [Mass fraction] 96 % [facility] Work Phone: 12-06-2021 06:09-0400 Systolic blood pressure 141 mm[Hg] [facility] Work Phone: 12-06-2021 04:09-0400 Body height 177.8 cm [facility] Work Phone: 12-06-2021 04:09-0400 Body mass index (BMI) [Ratio] 24.2 kg/m2 [facility] Work Phone: 12-06-2021 04:09-0400 Body weight 76.5 kg [facility] Work Phone: 01-09-2021 13:50-0400 Body height 175.9 cm Jake Duque Work Phone: [facility] Work Phone: 01-09-2021 13:50-0400 Body mass index (BMI) [Ratio] 25.51 kg/m2 Jake Duque Work Phone: [facility] Work Phone: 01-09-2021 13:50-0400 Body surface area Derived from formula 1.95 m2 Jake Duque Work Phone: [facility] Work Phone: 01-09-2021 13:50-0400 Body weight 78.93 kg Jake O Duque Work Phone: [facility] Work Phone: 01-09-2021 13:50-0400 Diastolic blood pressure 64 mm[Hg] Jake O Duque Work Phone: [facility] Work Phone: 01-09-2021 13:50-0400 Heart rate 72 /min Jake O Duque Work Phone: [facility] Work Phone: 01-09-2021 13:50-0400 Systolic blood pressure 110 mm[Hg] Jake O Duque Work Phone: [facility] Work Phone: 07-08-2020 11:37-0400 Body height 175.9 cm Jake Duque MD [facility] Work Phone: 07-08-2020 11:37-0400 Body mass index (BMI) [Ratio] 27.12 kg/m2 Jake Duque MD [facility] Work Phone: 07-08-2020 11:37-0400 Body surface area Derived from formula 2 m2 Jake Duque MD [facility] Work Phone: 07-08-2020 11:37-0400 Body weight 83.92 kg Jake Duque MD [facility] Work Phone: 07-08-2020 11:37-0400 Diastolic blood pressure 80 mm[Hg] Jake Duque MD [facility] Work Phone: Comment on above: Location: [facility]; 07-08-2020 11:37-0400 Heart rate 72 /min Jake Duque MD [facility] Work Phone: 07-08-2020 11:37-0400 Systolic blood pressure 124 mm[Hg] Jake Duque MD [facility] Work Phone: Comment on above: Location: [place]; 05-29-2020 11:09-0400 BMI (Body Mass Index) 27.85 kg/m2 Jake Duque [facility] Work Phone: 05-29-2020 11:09-0400 Body weight 86.18 kg Jake Rodgersyder [facility] Work Phone: 05-29-2020 11:09-0400 BP Diastolic 74 mm[Hg] Jake Duque [facility] Work Phone: Comment on above: Location: [facility]; 05-29-2020 11:09-0400 BP Systolic 126 mm[Hg] Jake Duque -[facility] Work Phone: Comment on above: Location: [place]; 05-29-2020 11:090400 BSA (Body Surface Area) 2.03 m2 Jake Duque -[facility] Work Phone: 05-29-2020 11:090400 Height 175.9 cm Jake Roland [facility] Work Phone: 05-29-2020 11:09-0400 Pulse (Heart Rate) 68 /min Jake Duque [facility] Work Phone: 09-13-2017 13:01-0400 BMI (Body Mass Index) 28.71 kg/m2 Ryan Dillard [facility] 09-13-2017 13:01-0400 Height 177.8 cm Ryan Dillard [facility] 09-13-2017 13:01-0400 Weight 90.77 kg Ryan Dillard [facility] Encounters Encounter Date Encounter Type Care Provider Facility Start: 10-27-2024 ambulatory Chau Kohler cility:[facility] Start: 10-02-2024 ambulatory Jake Duque Facility :[facility] Start: 10-02-2024 Registered Referred Chau Smallwood MD [facility] Start: 09-05-2024 End: 09-05-[address] Jake Duque MD Work Phone: [facility] Start: 09-05-2024 End: 09-05-[address] Chau Smallwood MD -[facility] [place] Work Phone: Start: 08-22-2024 End: 08-22-[address] Jake Duque MD Work Phone: [facility] Start: 08-22-2024 End: 08-22-2024 Departed Referred Chau Smallwood MD [facility] Start: 08-22-2024 Registered Referred Chau Smallwood MD [facility] Start: 08-22-2024 End: 08-22-2024 ambulatory Jake Duque Facility:[facility] Start: 08-08-2024 End: 08-08-[address] Jake Duque MD Work Phone: [facility] Start: 08-08-2024 End: 08-08-[address] Chau Smallwood MD -[facility] [place] Work Phone: Start: 08-07-2024 End: 08-07-[address] Jake Duque MD Work Phone: 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); Hypercholesterolemia; Primary hypertension; Type 2 diabetes mellitus without complication, without long-term current use of insulin (Multi); Abnormal weight loss; Benign prostatic hyperplasia with urinary obstruction; Bilateral renal cysts; Cervical spondylolysis; Atherosclerosis of [place] coronary artery of [place] heart with stable angina pectoris; 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 (Multi); Hiatal hernia; Chronic bilateral low back pain without sciatica; Malignant neoplasm of skin; Prostate cancer (Multi); Pseudophakia, both eyes; 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, psychotic disturbance, mood disturbance, or anxiety; Urge incontinence of urine Start: 01-20-2024 End: 01-20-2024 ambulatory [facility] Start: 01-20-2024 End: 01-20-2024 ambulatory [facility] Start: 07-20-2023 End: 07-20-2023 Office outpatient visit 25 minutes Jake Duque MD Work Phone: [facility] Comment on above: Abnormal weight loss (Primary Dx); Benign prostatic hyperplasia with urinary obstruction; Atherosclerosis of [place] coronary artery of [place] heart with stable angina pectoris (CMS-HCC); Diabetic [...] of urine Start: 07-03-2023 End: 07-03-2023 ambulatory [facility] Start: 02-23-2023 End: 02-23-2023 Office outpatient visit 15 minutes Jake Duque MD Work Phone: [facility] Comment on above: Diabetic mononeuropa thy associated with type 2 diabetes mellitus (CMS/HCC) (Primary Dx); Abnormal weight loss; 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, psychotic disturbance, mood disturbance, or anxiety (CMS/HCC) Start: 01-11-2023 End: 01-11-2023 Assay of hemosiderin, quant Jake Duque MD Work Phone: [facility] Work Phone: Start: 01-11-2023 End: 01-11-2023 Office outpatient visit 25 minutes Jake Duque MD Work Phone: [facility] Comment on above: Routine general medi jean examination at health care facility (Primary Dx); 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, psychotic disturbance, mood disturbance, or anxiety (CMS/HCC); Hypercholesterolemia; Atherosclerosis of [place] coronary artery of [place] heart with stable angina pectoris (CMS/HCC); Primary [...] 25 minutes Jake Duque MD Work Phone: [facility] Comment on above: 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 (Primary Dx); Prostate cancer (CMS/HCC); Bilateral renal cysts; Cervical spondylolysis; Atherosclerosis of [place] coronary artery of [place] heart with stable angina pectoris (CMS/HCC); 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 (CMS/HCC); Hiatal hernia; Hypercholesterolemia; Primary hypertension; Chronic bilateral low back pain without sciatica; 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, psychotic disturbance, mood disturbance, or anxiety (CMS/HCC); Malignant neoplasm of skin; Pseudophakia, both eyes; Urge incontinence of urine Start: 03-13-2022 AUDIT Jake Duque Work Phone: [facility] Work Phone: Start: 02-17-2022 Office outpatient vi sit 15 minutes Jake Duque Work Phone: [facility] Work Phone: Start: 02-17-2022 ambulatory Jake Duque [facility] [id number] Start: 01-13-2022 ambulatory Jake Duque Facil [id number] Start: 12-06-2021 End: 12-06-2021 Emergency department patient visit [facility] Start: 10-02-2021 AUDIT Jake Duque [facility] Work Phone: Start: 07-11-2021 ambulatory Jake Duque Facil [id number] Start: 07-07-2021 Chart Update Jake Faith [facility]que [facility] Work Phone: Start: 01-09-2021 Office outpatient vi sit 25 minutes Jake Faith Duque [facility] Work Phone: Start: 10-07-2020 AUDIT Jake Duque [facility] Work Phone: Start: 07-08-2020 Patient encounter procedure [facility] Work Phone: Start: 05-29-2020 Patient encounter procedure Jake Duque [facility] Work Phone: Start: 01-11-2020 Patient encounter procedure Jake Duque [facility] Work Phone: Start: 07-11-2019 Patient encounter procedure Jake Duque [facility] Work Phone: Start: 01-11-2019 Patient encounter procedure Jake Duque [facility] Work Phone: Start: 07-08-2018 End: 07-09-2018 Patient encounter procedure Jake Duque Facility:[facility] Start: 07-02-2018 End: 07-03-2018 Patient encounter procedure Jake Duque Facility:[facility] Start: 01-08-2018 End: 01-09-2018 Patient encounter procedure Jake Duque Facility:[facility] Start: 01-07-2018 End: 01-08-2018 Patient encounter procedure Jake Duque Facility:[facility] Start: 09-13-2017 End: 09-13-2017 Office outpatient visit 15 minutes Ryan Dillard Work Phone: [facility] Office Procedures Date Procedure Procedure Detail Performing Clinician Start: 01-20-2024 Lipid 1996 panel - Serum or Plasma Jake Duque MD Work Phone: Start: 07-03-2023 Comprehensive metabolic 2000 panel - Serum or Plasma JAKE DUQUE Start: 07-03-2023 Hemoglobin A1c/Hemoglobin.total in Blood JAKE DUQUE Start: 12-26-2022 Lipid 1995 panel - Serum or Plasma Jake Duque MD Work Phone: Start: 01-10-2022 Lipid 1996 panel - Serum or Plasma Jake Duuqe MD Work Phone: Start: 01-06-2022 Cystoscopy Jake [...] Jake Duque Start: 07-11-2019 Hemoglobin glycosylated a1c aJke Duque Start: 07-11-2019 Lipid panel Jake Duque [...] artery Jake Duque Repair of shoulder Jake Rodgersy triny Vasectomy Jake Duque Plan of Treatment Date Care Activity Detail Author Start: 07-10-2027 DTaP/Tdap/Td Vaccine s (2 - Td or Tdap) DTaP/Tdap/Td Vaccines (2 - Td or Tdap) [facility] Start: 01-19-2025 Lipid panel Lipid Panel [facility] Start: 07-19-2024 End: 01-19-2025 Comprehensive metabolic 2000 panel - Serum or Plasma Comprehensive metabolic panel Lab Routine 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) Expected: 07/19/2024 (Approximate), Expires: 01/19/2025 [facility] Service [facility] Work Phone: Comment on above: Expected: 07/19/2024 (Approximate), Expires: 01/19/2025 Start: 07-19-2024 End: 01-19-2025 Hemoglobin A1c/Hemoglobin.total in Blood Hemoglobin A1c Lab Routine 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) Expected: 07/19/2024 (Approximate), Expires: 01/19/2025 [facility] Work Phone: Comment on above: Expected: 07/19/2024 (Approximate), Expires: 01/19/2025 Start: 02-26-2024 COVID-19 Vaccine ( season) COVID-19 Vaccine ( season) [facility] Start: 01-20-2024 End: 01-20-2024 Patient encounter procedure 01/20/2024 3:00 PM EST Office Visit [facility] [address] [place] [id number] Jake Duque MD [address] [facility] [address] [place] [address] [facility] Start: 01-20-2024 End: 07-19-2024 CBC panel - Blood by Automated count CBC Lab Routine 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) Expected: 01/20/2024 (Approximate), Expires: 07/19/2024 [facility] Service Area Work Phone: Comment on above: Expected: 01/20/2024 (Approximate), Expires: 07/19/2024 Start: 01-20-2024 End: 07-19-2024 Cobalamin (Vitamin B12) [Mass/volume] in Serum or Plasma Vitamin B12 Lab Routine 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) Expected: 01/20/2024 (Approximate), Expires: 07/19/2024 [facility] Work Phone: Comment on above: Expected: 01/20/2024 (Approximate), Expires: 07/19/2024 Start: 01-20-2024 End: 07-19-2024 Comprehensive metabolic 2000 panel - Serum or Plasma Comprehensive Metabolic Panel Lab Routine 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) Expected: 01/20/2024 (Approximate), Expires: 07/19/2024 [facility] Work Phone: Comment on above: Expected: 01/20/2024 (Approximate), Expires: 07/19/2024 Start: 01-20-2024 End: 07-19-2024 Hemoglobin A1c/Hemoglobin.total in Blood Hemoglobin A1C Lab Routine 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) Expected: 01/20/2024 (Approximate), Expires: 07/19/2024 [facility] Work Phone: Comment on above: Expected: 01/20/2024 (Approximate), Expires: 07/19/2024 Start: 01-20-2024 End: 07-19-2024 Lipid 1996 panel - Serum or Plasma Lipid Panel Lab Routine Hypercholesterolemia Expected: 01/20/2024 (Approximate), Expires: 07/19/2024 [facility] Work Phone: Comment on above: Expected: 01/20/2024 (Approximate), Expires: 07/19/2024 Start: 01-20-2024 End: 07-19-2024 Prostate specific Ag [Mass/volume] in Serum or Plasma Prostate Specific Antigen Lab Routine Prostate cancer (Multi) Expected: 01/20/2024 (Approximate), Expires: 07/19/2024 [facility] Work Phone: Comment on above: Expected: 01/20/2024 (Approximate), Expires: 07/19/2024 Start: 12-27-2023 Lipid panel Lipid Panel [facility] Start: 11-07-2023 Influenza vaccination Influenz a Vaccine (Season Ended) [facility] Start: 10-02-2023 Hemoglobin A1c measurement Diabetes: Hemoglobin A1C [facility] Start: 07-27-2023 End: 07-27-2023 Patient encounter procedure 07/27/2023 3:00 PM EDT Office Visit [facility] [address] [place] [id number] Jake Duque MD [address] [facility], [address] [place] [address] [facility] Start: 07-23-2023 End: 02-24-2024 Comprehensive metabolic 2000 panel - Serum or Plasma Comprehensive Metabolic Panel Lab Routine 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 (CMS/HCC) Expected: 07/23/2023 (Approximate), Expires: 02/24/2024 [facility] Service Area Work Phone: Comment on above: Expected: 07/23/2023 (Approximate), Expires: 02/24/2024 Start: 07-23-2023 End: 02-24-2024 Hemoglobin A1c/Hemoglobin.total in Blood Hemoglobin A1C Lab Routine 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 (CMS/HCC) Expected: 07/23/2023 (Approximate), Expires: 02/24/2024 [facility] Work Phone: Comment on above: Expected: 07/23/2023 (Approximate), Expires: 02/24/2024 Start: 03-28-2023 Hemoglobin A1c measurement Diabetes: Hemoglobin A1C [facility] Start: 02-16-2023 End: 02-16-2023 Patient encounter procedure 02/16/2023 4:00 PM EST Office Visit [facility] [address] [place] [id number] Jake Duque MD [address] [facility], [address] [place] [address] [facility] Start: 01-10-2023 Lipid panel Lipid Panel [facility] Start: 01-07-2023 End: 07-08-2023 CBC panel - Blood by Automated count CBC Lab Routine 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 (CMS/HCC) Expected: 01/07/2023 (Approximate), Expires: 07/08/2023 [facility] Work Phone: Comment on above: Expected: 01/07/2023 (Approximate), Expires: 07/08/2023 Start: 01-07-2023 End: 07-08-2023 Comprehensive metabolic 2000 panel - Serum or Plasma Comprehensive Metabolic Panel Lab Routine 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 (CMS/HCC) Expected: 01/07/2023 (Approximate), Expires: 07/08/2023 [facility] Work Phone: Comment on above: Expected: 01/07/2023 (Approximate), Expires: 07/08/2023 Start: 01-07-2023 End: 07-08-2023 Hemoglobin A1c/Hemoglobin.total in Blood Hemoglobin A1C Lab Routine 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 (CMS/HCC) Expected: 01/07/2023 (Approximate), Expires: 07/08/2023 [facility] Work Phone: Comment on above: Expected: 01/07/2023 (Approximate), Expires: 07/08/2023 Start: 01-07-2023 End: 07-08-2023 Lipid 1996 panel - Serum or Plasma Lipid Panel Lab Routine Hypercholesterolemia Expected: 01/07/2023 (Approximate), Expires: 07/08/2023 [facility] Work Phone: Comment on above: Expected: 01/07/2023 (Approximate), Expires: 07/08/2023 Start: 01-07-2023 End: 07-08-2023 Magnesium [Mass/volume] in Serum or Plasma Magnesium Lab Routine 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/HCC) Expected: 01/07/2023 (Approximate), Expires: 07/08/2023 [facility] Work Phone: Comment on above: Expected: 01/07/2023 (Approximate), Expires: 07/08/2023 Start: 01-07-2023 End: 07-08-2023 Prostate specific Ag [Mass/volume] in Serum or Plasma PSA Lab Routine Prostate cancer ([facility]) Expected: 01/07/2023 (Approximate), Expires: 07/08/2023 [facility] Service [facility] Work Phone: Comment on above: Expected: 01/07/2023 (Approximate), Expires: 07/08/2023 Start: 01-07-2023 End: 07-08-2023 TSH with reflex to Free T4 if abnormal TSH with reflex to Free T4 if abnormal Lab Routine Primary hypertension Expected: 01/07/2023 (Approximate), Expires: 07/08/2023 [facility] Work Phone: Comment on above: Expected: 01/07/2023 (Approximate), Expires: 07/08/2023 Start: 11-06-2022 COVID-19 Vaccine ( season) COVID-19 Vaccine ( season) [facility] Start: 11-06-2022 Influenza vaccination [facility] Start: 07-07-2022 EPV, Provider: Jake Duque, Status: Pen, Time: 3:30 PM EPV, Provider: Jake Duque, Status: Pen, Time: 3:30 PM [facility] Work Phone: Start: 04-12-2022 Hemoglobin A1c measurement Diabetes: Hemoglobin A1C [facility] Start: 01-13-2022 EPV, Provider: Jake Duque, Status: Pen, Time: 3:30 PM EPV, Provider: Jake Duque, Status: Pen, Time: 3:30 PM [facility] Work Phone: Start: 07-11-2021 EPV, Provider: Jake Duque, Status: Pen, Time: 2:30 PM EPV, Provider: Jake Duque, Status: Pen, Time: 2:30 PM [facility] Work Phone: Start: 01-25-2021 COVID-19 Vaccine (4 - Booster for Pfizer series) COVID-19 Vaccine (4 - Booster for Pfizer series) [facility] Start: 01-25-2021 COVID-19 Vaccine (4 - Pfizer series) COVID-19 Vaccine (4 - Pfizer series) [facility] Start: 01-09-2021 EPV, Provider: Jake Duque, Status: Pen, Time: 2:00 PM EPV, Provider: Jake Duque, Status: Pen, Time: 2:00 PM [facility] Work Phone: Start: 01-08-2021 Assay of prostate specific antigen total Prostate Specific Antigen [facility] Work Phone: Start: 01-08-2021 CBC W Auto Differential panel - Blood Complete Blood Count [facility] Work Phone: Start: 01-08-2021 Comprehensive metabolic 2000 panel - Serum or Plasma Comprehensive Metabolic Panel [facility] Work Phone: Start: 01-08-2021 Cyanocobalamin vitam in b-12 Vitamin B12, Serum [facility] Work Phone: Start: 01-08-2021 Hemoglobin glycosylated a1c Hemoglobin A1C [facility] Work Phone: Start: 01-08-2021 Lipid panel Lipid Panel [facility] Work Phone: Start: 01-05-2021 Urine screening for protein Diabetes: Urine Protein Screening [facility] Start: 07-08-2020 Assay of prostate specific antigen total Prostate Specific Antigen [facility] Work Phone: Start: 07-08-2020 CBC W Auto Differential panel - Blood Complete Blood Count [facility] Work Phone: Start: 07-08-2020 Comprehensive metabolic 2000 panel - Serum or Plasma Comprehensive Metabolic Panel [facility] Work Phone: Start: 07-08-2020 Cyanocobalamin vitam in b-12 Vitamin B12, Serum [facility] Work Phone: Start: 07-08-2020 Hemoglobin glycosylated a1c Hemoglobin A1C [facility] Work Phone: Start: 07-08-2020 Lipid panel Lipid Panel [facility] Work Phone: Start: 01-11-2020 Assay of prostate specific antigen total Prostate Specific Antigen [facility] Work Phone: Start: 01-11-2020 Cobalamin (Vitamin B12) [Mass/Vol] Vitamin B12, Serum [facility] Work Phone: Start: 01-11-2020 Comprehensive metabolic 2000 panel [facility] Work Phone: Start: 01-11-2020 HbA1c (Bld) [Mass fraction] Hemoglobin A1C [facility] Work Phone: Start: 01-11-2020 Lipid panel Lipid Panel [facility] Work Phone: Start: 11-06-2017 Influenza vaccination SEQUENTI AL INFLUENZA VACCINE (#1) [facility] Start: 2007 Pneumococcal vaccination PNEUMOCOCCAL VACCINE AGE 65+ (1 of 2 - PCV13) [facility] Start: 2002 RSV patient s and/or patients aged 60+ years (1 - 1-dose 60+ series) RSV patients and/or patients aged 60+ years (1 - 1-dose 60+ series) [facility] Start: 2002 Zoster vaccine hzv live for subcutaneous use ZOSTER VACCINE [facility] Start: 1992 Zoster Vaccines (1 o f 2) Zoster Vaccines (1 of 2) [facility] Start: 1952 Diabetic foot examination Diabetes: Foot Exam [facility] Start: 1952 Glaucoma screening Diabetes: R etinopathy Screening [facility] Start: 1952 Ophthalmic examinati on and evaluation Diabetes: Retinopathy Screening [facility] Start: 1942 Examination of skin Derm Melanoma Sk in Check [facility] Start: 1942 Screening colonoscopy [facility] Start: 1942 Tetanus vaccination TETANUS EVERY 10 YR [facility] Start: 1942 Yearly Adult Physical Yearly Adult P hysical [facility] Patient Education ED Chest Pain, Noncardiac ED Chest Wall Strain [facility] [place] Work Phone: Patient referral [facility] Work Phone: NEGATED: Highlighted row has been ruled out! Planned Goals not documented [facility] Work Phone: Immunizations Immunization Date Immunization Notes Care Provider [facility] 01-01-2024 influenza, seasonal, injectable Jake Duque MD Work Phone: [facility] Work Phone: 01-01-2024 Pfizer Purple Cap SARS-CoV-2 Jake Duque MD Work Phone: [facility] Work Phone: 01-01-2024 Respiratory Synctial Virus (Rsv), Unspecified Jake Duque MD Work Phone: [facility] Work Phone: 01-23-2022 Pfizer COVID-19 Vac Bivalent 30 MCG/0.3ML Intramuscular Suspension Jake Duque Work Phone: [facility] Work Phone: Comment on above: Series: 12-01-2021 Fluzone High-Dose Quadrivalent 0.7 ML Intramuscular Suspension Prefilled Syringe Jake Duque Work Phone: [facility] Work Phone: Comment on above: Series: 09-26-2022 influenza virus vacc ine, unspecified formulation Jake Duque MD Work Phone: [facility] Work Phone: 08-24-2021 zoster vaccine recombinant Jake Duque Work Phone: [facility] Work Phone: Comment on above: Series: 08-24-2021 zoster vaccine, live Jake Duque Work Phone: [facility] Work Phone: Comment on above: Series: 06-20-2021 zoster vaccine recombinant Jake Duque Work Phone: [facility] Work Phone: Comment on above: Series: 11-30-2020 influenza, high dose seasonal, preservative-free Jakejosé Rodgersyder Work Phone: [facility] Work Phone: Comment on above: Series: 11-30-2020 influenza, seasonal, injectable Jake Rodgersyder Work Phone: [facility] Work Phone: Comment on above: Series: 11-30-2020 Influenza, Seasonal, Quadrivalent, Adjuvanted Jake Duque MD Work Phone: [facility] Work Phone: 11-30-2020 Pfizer-BioNTech COVI D-19 Vacc 30 MCG/0.3ML Intramuscular Suspension Jakejosé Moralezer Work Phone: [facility] Work Phone: Comment on above: Series: 04-24-2020 Pfizer-BioNTech COVI D-19 Vacc 30 MCG/0.3ML Intramuscular Suspension Jake Duque [facility] Work Phone: Comment on above: Series: 04-03-2020 Pfizer-BioNTech COVI D-19 Vacc 30 MCG/0.3ML Intramuscular Suspension Jakejosé Duque [facility] Work Phone: Comment on above: Series: 12-20-2019 influenza virus vacc ine, unspecified formulation Jake Duque Work Phone: [facility] Work Phone: Comment on above: Series: 12-20-2019 influenza, injectabl e, quadrivalent, preservative free Jake Duque MD Work Phone: [facility] Work Phone: 12-20-2019 influenza, seasonal, injectable Jake Duque [facility] Work Phone: Comment on above: Series: 12-20-2019 influenza, seasonal, injectable Jake Duque [facility] Work Phone: 01-06-2019 influenza, seasonal, injectable Jake Duque [facility] Work Phone: Comment on above: Series: 12-24-2017 influenza virus vacc ine, unspecified formulation; Translations: [influenza virus vaccine, unspecified formulation] Jake Duque [facility] Work Phone: Comment on above: Series: 07-09-2017 tetanus toxoid, redu omaira diphtheria toxoid, and acellular pertussis vaccine, adsorbed Jake Duque [facility] Work Phone: Comment on above: Series: 12-30-2016 influenza virus vacc ine, live, attenuated, for intranasal use Jake Duque MD Work Phone: [facility] Work Phone: 07-14-2016 pneumococcal conjuga te vaccine, 13 valent Jake Duque [facility] Work Phone: Comment on above: Series: 01-19-2011 pneumococcal polysaccharide vaccine, 23 valent Jake Duque [facility] Work Phone: Comment on above: Series: Payers Date Payer Category Payer Medicaid [id number] 2024 Medicare [id number] 2024 Self-pay [id number] 2023 Managed Care (Private) [facility] PLAN [id number] 2023 Private Health Insurance [id number] 2023 Private Health Insurance [id number] 2015 Medicare supplementa l policy (as second payer) [employer] MEDICARE SUPPLEMENT [id number] 2015 Private Health Insurance [id number] 2011 Private Health Insurance 2011 Private Health Insurance [id number] 1942 Unknown [id number] 1942 Unknown [id number] 1942 Unknown [id number] .356 1942 Unknown [id number] .356 1942 Unknown [id number] .[id number] 1942 Unknown [id number] .[id number] 1942 Unknown [id number] .[id number] 1942 Unknown [id number] .[id number] Unknown Unknown [id number] .462 Unknown [id number] .462 Unknown [id number] .462 Unknown [id number] .462 Unknown [id number] Unknown [id number] .[id number] Unknown [id number] Social History Date Type Detail Facility Start: 09-13-2017 End: 09-21-2024 Tobacco smoking status [facility] Former smoker [facility] Sex Assigned At Not on file [facility] Start: 07-07-2022 End: 01-11-2023 No recent foreign travel No recent foreign travel [facility] Work Phone: Start: 12-06-2021 Tobacco smoking status NHIS Unknown if ever smoked [facility] [place] Work Phone: Start: 12-06-2021 None [facility] Start: 12-06-20[facility] Start: 1940 Sex Assigned At Male [facility] Start: 03-08-1954 End: 03-08-1964 History of tobacco use Current smoker [facility] Work Phone: Start: 03-08-1954 End: 03-08-1964 History of tobacco use Cigarette Smoker [facility] Work Phone: Start: 07-07-2022 End: 07-20-2023 Tobacco use and exposure Smokeless tobacco non-user [facility] Work Phone: Start: 07-07-2022 Alcohol intake Lifetime non-d marii (finding) [facility] Work Phone: Start: 07-07-2022 End: 01-11-2023 Tobacco use panel [facility] Work Phone: Start: 07-05-2022 Gender identity Identifies as male gender (finding) [facility] Work Phone: Start: 06-27-2022 End: 01-20-2024 Exposure to SARS-CoV-2 (event) Not sure [facility] Start: 01-11-2023 End: 01-20-2024 Alcohol intake Ex-drinker (finding) [facility] [place] Work Phone: NEGATED: Highlighted row - - [facility] Work Phone: Functional Status Date Assessment Result Facility NEGATED: Highlighted row Functional performance Functional status health issues are not documented Disease [facility] Work Phone: Mental Status Date Assessment Result Facility 12-06-2021 Cognitive function Awake;Alert;A ppropria te;Inappropriate [facility] [place] Work Phone: NEGATED: Highlighted row Cognitive function [Interpretation] Cognitive status health issues are not documented Disease -[facility] Work Phone: Clinical Notes 01-09-2021 to [...] Bilateral renal cysts Cervical spondylolysis Atherosclerosis of [place] coronary artery of [place] heart with stable angina pectoris Diabetic mononeuropathy [...] - Established; Future documented in this encounter [facility] Work Phone: 07-20-2023 History of Present [...] States in August had pressure sore, used Etoile and it cleared, but notes today he [...] LW and DPA Yamila Young, Albert Macdonald Review of Systems Objective [...] prostatic hyperplasia with urinary obstruction Atherosclerosis of [place] coronary artery of [place] heart with stable angina pectoris ([facility]-HCC) Diabetic mononeuropathy associated with type 2 diabetes [...] Care - Established documented in this encounter [facility] Work Phone: 02-23-2023 History of Present [...] of ulcer on buttocks with trip to [place] DM doing well Review of Systems Objective [...] daily at bedtime. documented in this encounter [facility] Work Phone: 01-11-2023 History of Present [...] on confused days. Follows with urologist in [place]. CERVICAL SPONDYLOSIS WITHOUT MYELOPATHY - has been [...] renal cysts Cervical spondylolysis Coronary atherosclerosis of [place] coronary artery Relevant Medications clopidogrel (Plavix) 75 [...] appetite. Patient initially seen by Melody Dunham [employer] student. I reviewed history and examined patient independently and updated as needed. documented in this encounter [facility] Work Phone: 07-07-2022 History of Present [...] Present, No bruit present. Integumentary: Warm, Dry, [place]. Psychiatric: Cooperative, Appropriate mood & affect, Normal judgment. Behavior: No pressured speech. Judgment: Able to make sensible decisions. Thought process: Appropriate. Low back not tender but tight with extension. No cogwheeling or tremor Assessment/Plan Problem List Items Addressed This Visit Benign prostatic hyperplasia with urinary obstruction - Primary Bilateral renal cysts Cervical spondylolysis Coronary atherosclerosis of [place] coronary artery Relevant Medications clopidogrel (Plavix) 75 mg tablet metoprolol succinate XL (Toprol-XL) 100 mg 24 hr tablet nitroglycerin (Nitrostat) 0.4 mg SL tablet 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) Relevant Orders Follow Up In Primary Care Prostate cancer ([facility]) Relevant Orders PSA Pseudophakia, both eyes Urge incontinence of urine Patient was identified as a fall risk. Risk prevention instructions provided. He was in the yard. Stumbled due to slow reflexes. When having more confusion. No injury documented in this encounter [facility] Work Phone: 07-07-2022 Instructions Jake Duque [...] your healthcare team if you have questions [facility] 2021 documented in this encounter [facility] Work Phone: 01-13-2022 History of Present [...] Did have some swelling when driving to [place] after a long drive without walks.Having some leaking urine that is better on the medication. [facility] Work Phone: 01-09-2021 History of Present illness [...] up words. Names OK. 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 Last day is tomorrow. When flying he [...] oxybutynin.Pseudophakia successful in both eyesCologuard 07/25/19PSA 12/28/20 -[facility] Work Phone: Evaluation note No assessment information availa [facility] Work Phone: Evaluation note Diagnosis Benign prostatic hyperplasia with urinary obstruction- Primary Prostate cancer (CMS/HCC) Malignant neoplasm of prostate Bilateral renal cysts Unspecified congenital cystic kidney disease Cervical spondylolysis Atherosclerosis of [place] coronary artery of [place] heart with stable angina pectoris (CMS/HCC) Diabetic [...] urine Urge incontinence documented in this encounter [facility] Work Phone: Evaluation note* Diagnosis Routine general medical examination at health care facility- Primary Routine general medical examination at a health care facility 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, psychotic disturbance, mood disturbance, or anxiety (CMS/HCC) Hypercholesterolemia Pure hypercholesterolemia Atherosclerosis of [place] coronary artery of [place] heart with stable angina pectoris (CMS/HCC) Primary [...] of skin (CMS/HCC) documented in this encounter [facility] Work Phone: Evaluation note* Diagnosis 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 (CMS/HCC)- Primary Abnormal weight loss Loss of weight 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, psychotic disturbance, mood disturbance, or anxiety (CMS/HCC) documented in this encounter [facility] Work Phone: Evaluation note* Diagnosis Abnormal weight loss- Primary Loss of weight 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 I believe your pain is related to muscles in the chest wall. 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, psychotic disturbance, mood disturbance, or anxiety (CMS/[facility]) Procedures Follow Up In Primary Care Jake Duque MD [address] [facility], [place] [address] Referral ID Status Reason Start Date Expiration Date V isits Requested Visits Authorized [id number] Authorized 07/07/2022 01/03/2023 1 1 [facility] Work Phone: Reuhjg for referral (narrative)* Consultation (Routine) - Authorized Specialty Diagnoses / Procedures Referred By Contac t Referred To Contact Primary Care Diagnoses Abnormal weight loss Procedures Follow Up In Primary Care - Established Jake Duque MD [address] [facility], [place] [address] Referral ID Status Reason Start Date Expiration Date V isits Requested Visits Authorized [id number] Authorized 01/11/2023 01/11/2024 1 1 [facility] Work Phone: Rebvsv for referral (narrative)* Consultation (Routine) - Authorized Specialty Diagnoses / Procedures Referred By Contac t Referred To Contact Primary Care Procedures Follow Up In Primary Care - Established Jake Duque MD [address] [facility], [place] [id number] Referral ID Status Reason Start Date Expiration Date V isits Requested Visits Authorized [id number] Authorized 02/23/2023 02/23/2024 1 1 [facility] Work Phone: Rejxjt for referral (narrative)* Consultation (Routine) - Authorized Specialty Diagnoses / Procedures Referred By Contac t Referred To Contact Primary Care Diagnoses 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) Procedures Follow Up In Primary Care - Established Jake Duque MD [address] [facility], [place] [address] Referral ID Status Reason Start Date Expiration Date V isits Requested Visits Authorized [id number] Authorized 07/20/2023 07/19/2024 1 1 [facility] Work Phone: reason for referral (narrative)* Consultation (Routine) - Authorized Specialty Diagnoses / Procedures Referred By Contac t Referred To Contact Primary Care Procedures Follow Up In Primary Care - Established Jake Duque MD [address] [facility], [place] [id number] Phone: tel: fax: Referral ID Status Reason Start Date Expiration Date V isits Requested Visits Authorized [id number] Authorized 01/20/2024 01/19/2025 1 1 [facility] Work Phone: reason for referral (narrative)No reason for [facility]: Assessments Diagnosis Coronary artery disease, ang cody presence unspecified, unspecified vessel or lesion type, unspecified whether [place] or transplanted heart Essential hypertension Unspecified essential [...] Will Yes December 06 4:12am Power of Paper Cleaner Yes December 06 4:12am Name of Medical Power of Paper Cleaner Yamila Young December 06, 2021 4:12am Chief Complaint medckfollow up memantine Chief Complaint and Reason for Visit Chief Complaint cp Chief Complaint Admit Date ADMISSION EXAM August 07, 2024 2:45p m Chief Complaint Admit Date ADMISSION EXAM August 07, 2024 2:45p m ADMISSION EXAM August 08, 2024 4:30p m [facility] August 22, 2024 5: 00am Chief Complaint Admit Date ADMISSION EXAM August 07, 2024 2:45p m ADMISSION EXAM August 08, 2024 4:30p m [facility] August 22, 2024 5: 00am Monthly Exam September 05, 2024 10:28 pm Additional Source Comments Assessment & Plan Note [...] section and content) DATE CREATED AUTHOR 07/17/2018 [facility] DATE CREATED AUTHOR AUTHOR'S ORGANIZ ATION 06/24/[address] [facility] DATE CREATED AUTHOR AUTHOR'S ORGANIZ ATION 02/18/2022 [facility] DATE CREATED AUTHOR AUTHOR'S ORGANIZ ATION 04/20/2022 [facility] DATE CREATED AUTHOR AUTHOR'S ORGANIZ ATION 01/25/2024 [facility] DATE CREATED AUTHOR AUTHOR'S ORGANIZ ATION 07/17/2024 [facility] DATE CREATED AUTHOR AUTHOR'S ORGANIZ ATION 09/02/2024 [facility] DATE CREATED AUTHOR AUTHOR'S ORGANIZ ATION 10/29/2024 [facility] Goals (unrecognized section and content) Goals may be documented in a n alternate sectionGoals may be documented in an alternate sectionGoals may be documented in an alternate sectionGoals may be documented in an alternate sectionGoals may be documented in an alternate section Reason for Visit (unrecogniz ed section and content) Reason Comments Med Management Specialty Diagnoses / Procedures Referred By Contac t Referred To Contact Primary Care Procedures Follow Up In Primary Care - Established Jake Duque MD [address] [facility], [place] [id number] Referral ID Status Reason Start Date Expiration Date V isits Requested Visits Authorized [id number] Authorized 02/23/2023 02/23/2024 1 1 Reason Comments Medicare Annual Wellness Visit Initial Specialty Diagnoses / Procedures Referred By Contac t Referred To Contact Primary Care Diagnoses 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, psychotic disturbance, mood disturbance, or anxiety (CMS/[facility]) Procedures Follow Up In Primary Care Jake Duque MD [address] [facility], [place] [id number] Referral ID Status Reason Start Date Expiration Date Visits Re quested Visits Authorized [id number] Closed 07/07/2022 01/03/2023 1 1 Reason Comments Follow-up memory Specialty Diagnoses / Procedures Referred By Contac t Referred To Contact Primary Care Diagnoses Abnormal weight loss Procedures Follow Up In Primary Care - Established Jake Duque MD [address] [facility], [place] [id number] Referral ID Status Reason Start Date Expiration Date V isits Requested Visits Authorized [id number] Authorized 01/11/2023 01/11/2024 1 1 Specialty Diagnoses / Procedures Referred By Contac t Referred To Contact Primary Care Diagnoses 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) Procedures Follow Up In Primary Care - Established Jake Duque MD [address] [facility], [place] [id number] Phone: tel: fax: Referral ID Status Reason Start Date Expiration Date V isits Requested Visits Authorized [id number] Authorized 07/20/2023 07/19/2024 1 1 Care Teams (unrecognized sec tion and content) Application Developer Relationship Specialty Start Date End Date Jake Duque MD [address] [facility], [address] [place] [address] PCP - General 11/08/18 Application Developer Relationship Specialty Start Date End Date Jake Duque MD [address] [facility], [address] [place] [address] PCP - General 11/08/18 Application Developer Relationship Specialty Start Date End Date Jake Duque MD [address] [facility], [address] [place] [address] PCP - General 11/08/18 Application Developer Relationship Specialty Start Date End Date Jake Duque MD [address] [facility], [address] [place] [address] PCP - General 11/08/18 Application Developer Relationship Specialty Start Date End Date Jake Duque MD [address] [facility], [address] [place] [address] PCP - General 11/08/18 Team Status: Active Member Role/Relationship Status Dates Dr. Jake Duque MD Family Provider Active Dr. Jake Duque MD Primary Care Provider Active Team Status: Inactive Member Role/Relationship Status Dates Dr. Jake Duque MD Primary Care Provider Active Start: August 07, 2024 End: August 07, 2024 Kirti Ortiz HEALTHCARE RECRUITER, HEALTHCARE RECRUITER-C Attending Provider Active Start: August 07, 2024 End: August 07, 2024 Team Status: Active Member Role/Relationship Status Dates Dr. Jake Duque MD Primary Care Provider Active Start: August 22, 2024 Chau MURRELL MD Attending Provider Active Start: August 22, 2024 Team Status: Inactive Member Role/Relationship Status Dates Dr. Jake Duque MD Primary Care Provider Active Start: August 08, 2024 End: August 08, 2024 Dr. Chau Smallwood MD Attending Provider Active Start: August 08, 2024 End: August 08, 2024 Team Status: Active Member Role/Relationship Status Dates Dr. Jake Duque MD Primary Care Provider Active Start: August 22, 2024 Chau MURRELL MD Attending Provider Active Start: August 22, 2024 Team Status: Inactive Member Role/Relationship Status Dates Dr. Jake Duque MD Primary Care Provider Active Start: August 22, 2024 End: August 22, 2024 Chau MURRELL MD Attending Provider Active Start: August 22, 2024 End: August 22, 2024 Team Status: Active Member Role/Relationship Status Dates Dr. Jake Duque MD Primary Care Provider Active Start: October 02, 2024 Chau MURRELL MD Attending Provider Active Start: October 02, 2024 Team Status: Inactive Member Role/Relationship Status Dates Dr. Jake Duque MD Primary Care Provider Active Start: September 05, 2024 End: September 05, 2024 Dr. Chau Smallwood MD Attending Provider Active Start: September 05, 2024 End: September 05, 2024 Team Status: Active Member Role/Relationship Status Dates Dr. Jake Duque MD Primary Care Provider Active Start: October 02, 2024 Chau MURRELL MD Attending Provider Active Start: October 02, 2024 FOR RECORDS PERTAINING TO PATIENTS WHO ARE [...] BE BASED ON THE PRIMARY CLINICAL RECORDS. [employer] provides no warranty or guarantee of the accuracy or completeness of information in this document.
--- OUTSIDE RECORDS SUMMARY | 2024-11-07 04:55 | XMS RPT_ITS | CCD ---
Author Organization [facility] Care Team Providers Care [employer]rain [employer] Inspector Name Role Phone Jake Duque Unavailable Jake Duque Attending Unavailable Jake Duqeu Primary Care Unavailable Jake Duque Admitting Unavailable [...] Care Unavailable JAKE DUQUE Attending Unavailable DUQUEJAKE BARNES O Referring Unavailable STENTZ, JOSIANE Primary Care Unavailable STENTZ, JOSIANE Attending Unavailable JAKE DUQUE O Referring Unavailable STENTZ, JOSIANE Primary Care Unavailable Roland YOUNG, Dr. Jake Cuevas Primary Care Provider [phone] Kirti Kennedy Attending Provider [phone] Chau Smallwood MD Attending Provider Unavaila lizzeth Smallwood MD, Dr. Ritchie Attending Provider [phone] Jake Duque Primary Care Unavailable Omar Smallwoodewalinabe Attending Unavailable Jake Duque Primary Care Unavailable Kirti Ortiz NP Attending Unavailable Jake Duque Primary Care Unavailable Chau Smallowod Attending Unavailable Chau Fisher Attending Unavailgwyn e Jake Duque Primary Care Unavailable Jake Duque Primary Care Unavailable Chau Fisher Attending UnavailJake [place] Primary Care Unavailable Cl OLSChau Attending Unavailabl e Allergies Allergy Classification Reported Allergen(s) Allergy Type Date of Onset Reaction(s) Facility NSAIDs (4 sources) NSAIDs; Translations: [NSAIDs] Drug Allergy [facility] Work Phone: (18 sources) nabumetone; Translations: [Relafen] Drug Allergy 5 Unknown [facility] Comment on above: KIDNEY DAMAGE (4 sources) nabumetone; Translations: [Relafen] Drug Allergy [facility] Repository (9 sources) NSAIDs; Translations: [NSAIDs] Propensity to adverse reactions to drug (disorder) [facility]ository (7 sources) Non-steroidal anti-inflammator y agent; Translations: [NSAIDS (NON-STEROIDAL ANTI-INFLAMMATOR Y DRUG)] Drug Allergy 3 Unknown [facility] Work Phone: (5 sources) Mirtazapine; Translations: [MIRTAZAPINE] Drug Allergy 3 Other [facility] Work Phone: (1 source) nabumetone Drug Allergy 7 [facility] Repository Medications Current Medications Medication Drug Class(es) [...] mg PO DAILY April 28, 2016 1:00am Vsmphmzu-Nzkd-Khq 6-N-Zuuy-Bosw (Osteo Bi-Flex Caplet) 1 EACH tablet (5 sources) Start: 04-28-2016 take 1 tablet by mouth once daily Euitmenz-Stli-Xuw 7-T-Dloe-Bosw (Osteo Bi-Flex Caplet) 1 EACH tablet Active 1 NMA PO DAILY April 28, 2016 1:00am Start: 04-28-2016 take 1 tablet by dmitri th once daily Zwstlenf-Wufi-Sha1-C-Isreal-Bosw (Osteo Bi -Flex Caplet) 1 EACH tablet [...] mg extended release oral capsule (8 sources) T-znszwp-R-aspart ate Receptor Antagonist Start: 10-01-2022 End: 04-08-2024 take 1 capsule by mouth once daily memantine (Namenda XR) 28 mg capsule,sprinkle,ER 24hr 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 Start: 03-12-2020 take 1 drop(s) into the eye(s) once daily as needed Artificial Tears 0.1-0.3 % Ophthalmic Solution INSTILL 1 DROP Daily PRN Quantity: 0 Refills: 0 Ordered: 12-Mar-2020 DO Start : 12-Mar-2020 Active 24 hr donepezil hydrochloride 10 mg / memantine hydrochloride 28 mg extended release oral capsule (2 sources) G-oinvab-P-aspart ate Receptor Antagonist Start: 09-14-2022 End: 01-11-2023 [...] 10-02-2024 Anion gap [Moles/Vol] 11 mmol/L 5-15 [facility] BUN/creatinine ratioOrdered By: Chau Smallwood on 10-02-2024 Urea nitrogen/Creatinine [Mass ratio] 19.5 mg/mg 10-20 [facility] Carbon dioxide, total [Moles /volume] in Central venous bloodOrdered By: Chau Smallwood on 10-02-2024 CO2 [Moles/Vol] 24.2 mmol/L 21.0-32.0 [facility] Chloride assayOrdered By: Omar Smallwood on 10-02-2024 Chloride [Moles/Vol] 102 mmol/L 98-108 [facility] Glomerular filtration rate ( GFR) estimation/1.73 sq m using serum, plasma, or whole bOrdered By: Chau Hortamalgentry on 10-02-2024 GFR/1.73 sq M.predicted among non-blacks MDRD (S/P/Bld) [Vol rate/Area] 59 mL/min/{1.73_m2} Low >60 [facility] Comment on above: mL/min/1.73m2 CKD-EP I Creatinine Equation (2020) Potassium measurement (mass/ volume)Ordered By: Chau Smallwood on 10-02-2024 Potassium (Unsp spec) [Mass/Vol] 4.8 mmol/L 3.3-5.1 [facility] Serum creatinine measurement (mass/volume)Ordered By: Chau Smallwood on 10-02-2024 Creatinine [Mass/Vol] 1.22 mg/dL High 0.70-1.20 [facility] Serum glucose measurement (m ass/volume)Ordered By: Chau Smallwood on 10-02-2024 Glucose [Mass/Vol] 119 mg/dL High 70-99 [facility] Serum or plasma calcium lisa urement (mass/volume)Ordered By: Chau Hortamalgentry on 10-02-2024 Calcium [Mass/Vol] 9.5 mg/dL 7.6-11.0 [facility] Serum or plasma urea nitroge n measurement (mass/volume)Ordered By: Chau Smallwood on 10-02-2024 Urea nitrogen [Mass/Vol] 24 mg/dL High 4-19 [facility] Sodium levelOrdered By: Erasmo monetflash Mychalmalgentry on 10-02-2024 Sodium [Moles/Vol] 137 mmol/L 133-145 [facility] Absolute lymphocyte countOrd ered By: Chau Smallwood on 08-22-2024 Lymphocytes Auto (Unsp spec) [#/Vol] 2.18 10*3/uL 0.83-4.51 [facility] Absolute neutrophil countOrd ered By: Chau Smallwood on 08-22-2024 Neutrophils (Bld) [#/Vol] 3.9 10*3/uL 2.0-7.7 [facility] Anion gap in Serum or Plasma Ordered By: Chau Smallwood on 08-22-2024 Anion gap [Moles/Vol] 11 mmol/L 5-15 [facility] Automated lymphocyte count a s percentage of total leukocytesOrdered By: Chau Smallwood on 08-22-2024 Lymphocytes/100 WBC Auto (Unsp spec) 31.1 % 19-41 [facility] BUN/creatinine ratioOrdered By: Chau Smallwood on 08-22-2024 Urea nitrogen/Creatinine [Mass ratio] 23.3 mg/mg High 10-20 [facility] Basophil percentageOrdered B y: Chau Smallwood on 08-22-2024 Basophils/100 WBC (Bld) 0.6 % 0-1 [facility] Bilirubin, totalOrdered By: Chau Smallwood on 08-22-2024 Bilirubin [Mass/Vol] 0.42 mg/dL 0.00-1.30 [facility] Calculated very low density lipoprotein (VLDL) cholesterol measurementOrdered By: Chau Smallwood on 08-22-2024 Calculated very low density lipoprotein (VLDL) cholesterol measurement 11 mg/dL 5-40 [facility] Carbon dioxide, total [Moles /volume] in Central venous bloodOrdered By: Chau Smallwood on 08-22-2024 CO2 [Moles/Vol] 25.7 mmol/L 21.0-32.0 [facility] Chloride assayOrdered By: Omar Smallwood on 08-22-2024 Chloride [Moles/Vol] 99 mmol/L 98-108 [facility] Eosinophil percentageOrdered By: Chau Smallwood on 08-22-2024 Eosinophils/100 WBC (Bld) 2.0 % 0-5 [facility] Erythrocyte distribution wid th ratioOrdered By: Chau Smallwood on 08-22-2024 Erythrocyte distribution width (RBC) [Ratio] 13.0 % 11.6-14.6 [facility] Erythrocyte distribution wid th standard deviationOrdered By: Chau Smallwood on 08-22-2024 Erythrocyte distribution width (RBC) [Ratio] 43.0 fl 35.1-43.9 [facility] Glomerular filtration rate ( GFR) estimation/1.73 sq m using serum, plasma, or whole bOrdered By: Chau Smallwood on 08-22-2024 GFR/1.73 sq M.predicted among non-blacks MDRD (S/P/Bld) [Vol rate/Area] 52 mL/min/{1.73_m2} Low >60 [facility] Comment on above: mL/min/1.73m2 CKD-EP I Creatinine Equation (2020) Hematocrit Auto (Bld) [Volum e fraction]Ordered By: Chau Smallwood on 08-22-2024 Hematocrit (Bld) [Volume fraction] 41.0 % 40-54 [facility] Hemoglobin A1c percentageOrd ered By: Chau Smallwood on 08-22-2024 HbA1c (Bld) [Mass fraction] 6.5 % High <5.7 [facility] Comment on above: Normal < 5.7 % Predi abetic 5.7 - 6.4 % Diabetic >or= 6.5 % Please note range changes. Hemoglobin measurementOrdere d By: Chau Smallwood on 08-22-2024 Hemoglobin (Bld) [Mass/Vol] 13.7 g/dL 13.0-16.5 [facility] Immature granulocytes/100 WB C Auto (Bld)Ordered By: Chau Smallwood on 08-22-2024 Immature granulocytes/100 WBC (Bld) 0.300 % 0.0-0.9 [facility] Comment on above: IG% - Immature Granu locytes (promyelocytes, myelocytes and metamyelocytes) > 1% indicates that a LEFT SHIFT is Present. LDL calc ser/plasOrdered By: Chau Smallwood on 08-22-2024 Cholesterol in LDL [Mass/Vol] 42 mg/dL [facility] Comment on above: Uhqxttinud=621-620 m g/dL & Higher Lpbv=703 mg/dL or greater Laboratory - Chemistry and C hemistry - challengeOrdered By: Cahu Smallwood on 08-22-2024 AST [Catalytic activity/Vol] 20 U/L <38 [facility] MCV (mean corpuscular volume ) determinationOrdered By: Chau Smallwood on 08-22-2024 MCV (RBC) [Entitic vol] 89.9 fL 80-94 [facility] Mean corpuscular hemoglobin (MCH) determinationOrdered By: Chau Smallwood on 08-22-2024 MCH (RBC) [Entitic mass] 30.0 pg 27.0-32.0 [facility] Mean corpuscular hemoglobin concentration (MCHC) determinationOrdered By: Chau Smallwood on 08-22-2024 MCHC (RBC) [Mass/Vol] 33.4 g/dL 32-36 [facility] Mean platelet volume determi nationOrdered By: Chau Smallwood on 08-22-2024 Platelet mean volume (Bld) [Entitic vol] 9.7 fL 6.2-12.0 [facility] Monocyte percentageOrdered B y: Chau Smallwood on 08-22-2024 Monocytes/100 WBC (Bld) 10.3 % High 0-10 [facility] Neutrophil percentageOrdered By: efeloyalhannaernie Smallwood on 08-22-2024 Neutrophils/100 WBC (Bld) 55.7 % 47-70 [facility] Nucleated red blood cell per centageOrdered By: Chau Smallwood on 08-22-2024 Nucleated RBC/100 WBC (Bld) [Ratio] 0 % 0-5 [facility] Platelet countOrdered By: Omar Smallwood on 08-22-2024 Platelets (Bld) [#/Vol] 180 10*3/uL 150-450 [facility] Potassium measurement (mass/ volume)Ordered By: Chau Smallwood on 08-22-2024 Potassium (Unsp spec) [Mass/Vol] 4.5 mmol/L 3.3-5.1 [facility] RBC Auto (Bld) [#/Vol]Ordere d By: Chau Smallwood on 08-22-2024 RBC (Bld) [#/Vol] 4.56 10*6/uL Low 4.6-6.2 [facility] Screening total cholesterol/ high density lipoprotein (HDL) cholesterol ratioOrdered By: Chau Smallwood on 08-22-2024 Cholesterol.total/Cho lesterol in HDL [Mass ratio] 1.90 {ratio} [facility] Serum creatinine measurement (mass/volume)Ordered By: Chau Smallwood on 08-22-2024 Creatinine [Mass/Vol] 1.35 mg/dL High 0.70-1.20 [facility] Serum globulin measurementOr dered By: Chau Smallwood on 08-22-2024 Globulin (S) [Mass/Vol] 2.5 g/dL 2.2-4.2 [facility] Serum glucose measurement (m ass/volume)Ordered By: Chau Smallwood on 08-22-2024 Glucose [Mass/Vol] 117 mg/dL High 70-99 [facility] Serum or plasma alanine yepez otransferase (ALT) measurementOrdered By: Chau Smallwood on 08-22-2024 ALT [Catalytic activity/Vol] 13 U/L <47 [facility] Serum or plasma albumin lisa urement (mass/volume)Ordered By: Chau Smallwood on 08-22-2024 Albumin [Mass/Vol] 4.2 g/dL 3.4-4.8 [facility] Serum or plasma albumin/glob ulin mass ratioOrdered By: Chau Smallwood on 08-22-2024 Albumin/Globulin [Mass ratio] 1.7 {ratio} 0.9-2.4 [facility] Serum or plasma alkaline donavan sphatase measurementOrdered By: Chau Smallwood on 08-22-2024 ALP [Catalytic activity/Vol] 91 U/L 40-129 [facility] Serum or plasma calcium lisa urement (mass/volume)Ordered By: Chau Smallwood on 08-22-2024 Calcium [Mass/Vol] 9.7 mg/dL 7.6-11.0 [facility] Serum or plasma cholesterol in HDL measurement (mass/volume)Ordered By: Chau Smallwood on 08-22-2024 Cholesterol in HDL [Mass/Vol] 59 mg/dL >40 [facility] Comment on above: National Cholesterol Education Program (NCEP) guidelines:<40 mg/dL: Low HDL-cholesterol (major risk factor for CHD)>= 60 mg/dL: High HDL-cholesterol (negative risk factor for CHD)HDL-cholesterol is affected by a number of factors, e.g. smoking, exercise, hormones, sex and age. Serum or plasma cholesterol measurement (mass/volume)Ordered By: Chau Smallwood on 08-22-2024 Cholesterol [Mass/Vol] 112 mg/dL <201 [facility] Comment on above: Cholesterol level, D esirable <200 mg/dLBorderline high cholesterol 200-239 mg/dLHigh cholesterol >=240 mg/dLRecommendations of the NCEP Adult Treatment Panel for the following risk-cutoff thresholds for the [place] population. Serum or plasma urea nitroge n measurement (mass/volume)Ordered By: Chau Smallwood on 08-22-2024 Urea nitrogen [Mass/Vol] 32 mg/dL High 4-19 [facility] Sodium levelOrdered By: Erasmo monetflash Cl on 08-22-2024 Sodium [Moles/Vol] 136 mmol/L 133-145 [facility] Total proteinOrdered By: Sam garimaernie Smallwood on 08-22-2024 Protein [Mass/Vol] 6.7 g/dL 5.9-8.4 [facility] Triglycerides measurementOrd ered By: Chau Smallwood on 08-22-2024 Triglyceride [Mass/Vol] 55 mg/dL <199 [facility] Comment on above: The drugs N-Acetylcy steine and Metamizole may falsely depress this assay. Normal range: <150 mg/dLBorderline High: 150-199 mg/dLHigh: 200-499 mg/dLVery High: >500 mg/dL White blood cell (WBC) count Ordered By: Chau Smallwood on 08-22-2024 WBC (Bld) [#/Vol] 7.0 10*3/uL 4.4-11.0 [facility] CBC (INCLUDES DIFF/PLT)on Basophils (Bld) [#/Vol] 0.049 10*3/uL Normal 0-200 [facility] Comment on above: Performed By: #### 9 27, 6399, 59812, 7600, 85089, #### [facility] of [address], [address] [place] [address] Electrical Design Engineer: Nash Ames MD Basophils/100 WBC (Bld) 0.6 % Normal [facility] Comment on above: Performed By: #### 9 27, 6399, 70015, 7600, 16819, #### [facility] of [place] [address] Electrical Design Engineer: Nash Ames MD Eosinophils (Bld) [#/Vol] 0.251 10*3/uL Normal 15-500 [facility] Comment on above: Performed By: #### 9 27, 63, 38479, 7600, 02564, #### [facility] [place] [address] Electrical Design Engineer: Nash Ames MD Eosinophils/100 WBC (Bld) 3.1 % Normal [facility] Comment on above: Performed By: #### 9 27, 63, 99861, 7600, 41933, #### [facility] [place] [address] Electrical Design Engineer: Nash Ames MD Erythrocyte distribution width (RBC) [Ratio] 13.0 % Normal 11.0-15.0 [facility] Comment on above: Performed By: #### 9 27, 63, 99624, 7600, 32114, #### [facility] [place] [address] Electrical Design Engineer: Nash Ames MD Hematocrit (Bld) [Volume fraction] 47.6 % Normal 38.5-50.0 [facility] Comment on above: Performed By: #### 9 27, 6399, 53478, 7600, 73183, #### [facility] [place] [address] Electrical Design Engineer: Nash Ames MD Hemoglobin (Bld) [Mass/Vol] 15.3 g/dL Normal 13.2-17.1 [facility] Comment on above: Performed By: #### 9 27, 63, 45976, 7600, 42371, #### [facility] of [place] [address] Electrical Design Engineer: Nash Ames MD Lymphocytes (Bld) [#/Vol] 1.855 10*3/uL Normal 850-3900 [facility] Comment on above: Performed By: #### 9 , 63, 42246, 7600, 83046, #### [facility] [place] [address] Electrical Design Engineer: Nash Ames MD Lymphocytes/100 WBC (Bld) 22.9 % Normal [facility] Comment on above: Performed By: #### 9 27, 63, 81215, 7600, 61377, #### [facility] [place] [address] Electrical Design Engineer: Nash Ames MD MCH (RBC) [Entitic mass] 30.1 pg Normal 27.0-33.0 [facility] Comment on above: Performed By: #### 9 27, 63, 35944, 7600, 61238, #### [facility] [place] [address] Electrical Design Engineer: Nash Ames MD MCHC (RBC) [Mass/Vol] 32.1 g/dL Normal 32.0-36.0 [facility] Comment on above: Result Comment: For adults, a slight decrease in the calculated MCHC value (in the range of 30 to 32 g/dL) is most likely not clinically significant; however, it should be interpreted with caution in correlation with other red cell parameters and the patient's clinical condition. Performed By: #### 9 , 63, 12202, 7600, 61156, #### [facility] of [place] [address] Electrical Design Engineer: Nash Ames MD MCV (RBC) [Entitic vol] 93.5 fL Normal 80.0-100.0 [facility] Comment on above: Performed By: #### 9 27, 6399, 01487, 7600, 53334, #### [facility] of [address], [address] [place] [address] Electrical Design Engineer: Nash Ames MD Monocytes (Bld) [#/Vol] 0.826 10*3/uL Normal 200-950 [facility] Comment on above: Performed By: #### 9 27, 6399, 02422, 7600, 89888, #### [facility] of [place] [address] Electrical Design Engineer: Nash Ames MD Monocytes/100 WBC (Bld) 10.2 % Normal [facility] Comment on above: Performed By: #### 9 27, 6399, 57892, 7600, 64550, #### [facility] of [address], [address] [place] [address] Electrical Design Engineer: Nash Ames MD Neutrophils (Bld) [#/Vol] 5.119 10*3/uL Normal 6037-2877 [facility] Comment on above: Performed By: #### 9 27, 6399, 32287, 7600, 13807, 97728 #### [facility] of [place] [address] Electrical Design Engineer: Nash Ames MD Neutrophils/100 WBC (Bld) 63.2 % Normal [facility] Comment on above: Performed By: #### 9 27, 6399, 76415, 7600, 75898, #### [facility] of [place] [address] Electrical Design Engineer: Nash Ames MD Platelet mean volume (Bld) [Entitic vol] 9.7 fL Normal 7.5-12.5 [facility] Comment on above: Performed By: #### 9 27, 6399, 27727, 7600, 29617, #### [facility] of [address] [place] [address] Electrical Design Engineer: Nash Ames MD Platelets (Bld) [#/Vol] 180 10*3/uL Normal 140-400 [facility] Comment on above: Performed By: #### 9 27, 6399, 58339, 7600, 20503, 43066 #### [facility] of [address], [address] [place] [address] Electrical Design Engineer: Nash Ames MD RBC (Bld) [#/Vol] 5.09 10*6/uL Normal 4.20-5.80 [facility] Comment on above: Performed By: #### 9 27, 6399, 96010, 7600, 09195, #### [facility] [place] [address] Electrical Design Engineer: Nash Ames MD WBC (Bld) [#/Vol] 8.1 10*3/uL Normal 3.8-10.8 [facility] Comment on above: Performed By: #### 9 27, 6399, 16596, 7600, 17416, #### [facility] of [place] [address] Electrical Design Engineer: Nash Ames MD COMPREHENSIVE METABOLIC PANE L W/ANION GAPon 07-16-2024 Albumin [Mass/Vol] 4.5 g/dL Normal 3.6-5.1 [facility] Comment on above: Performed By: #### 9 27, 6399, 44873, 7600, 04914, #### [facility] of [place] [address] Electrical Design Engineer: Nash Ames MD ALP [Catalytic activity/Vol] 70 U/L Normal 35-144 [facility] Comment on above: Performed By: #### 9 27, 6399, 43251, 7600, 07049, 07776 #### [facility] [place] [address] Electrical Design Engineer: Nash Ames MD ALT [Catalytic activity/Vol] 14 U/L Normal 9-46 [facility] Comment on above: Performed By: #### 9 27, 63, 68197, 7600, 42343, #### [facility] of [address], [address] [place] [address] Electrical Design Engineer: Nash Ames MD AST [Catalytic activity/Vol] 16 U/L Normal 10-35 [facility] Comment on above: Performed By: #### 9 27, 63, 31182, 7600, 78652, #### [facility] of [address], [address] [place] [address] Electrical Design Engineer: Nash Ames MD Bilirubin [Mass/Vol] 0.7 mg/dL Normal 0.2-1.2 [facility] Comment on above: Performed By: #### 9 27, 63, 09668, 7600, 03922, #### [facility] of [address], [address] [place] [address] Electrical Design Engineer: Nash Ames MD Calcium [Mass/Vol] 9.8 mg/dL Normal 8.6-10.3 [facility] Comment on above: Performed By: #### 9 27, 63, 02673, 7600, 32931, #### [facility] of [address], [address] [place] [address] Electrical Design Engineer: Nash Ames MD Chloride [Moles/Vol] 98 mmol/L Normal 98-110 [facility] Comment on above: Performed By: #### 9 27, 63, 59205, 7600, 12468, #### [facility] of [address], [address] [place] [address] Electrical Design Engineer: Nash Ames MD CO2 [Moles/Vol] 30 mmol/L Normal 20-32 [facility] Comment on above: Performed By: #### 9 27, 6399, 63696, 7600, 94998, #### [facility] of [address], [address] [place] [address] Electrical Design Engineer: Nash Ames MD Creatinine [Mass/Vol] 1.18 mg/dL Normal 0.70-1.[address] [facility] Comment on above: Performed By: #### 9 27, 6399, 09583, 7600, 57986, 69391 #### [facility] [place] [address] Electrical Design Engineer: Nash Ames MD ELECTROLYTE BALANCE 8 mmol/L (calc) Normal 7-17 [facility] Comment on above: Performed By: #### 9 27, 6399, 16056, 7600, 93825, #### [facility] [place] [address] Electrical Design Engineer: Nash Ames MD GFR/1.73 sq M.predicted among non-blacks MDRD (S/P/Bld) [Vol rate/Area] 62 mL/min/{1.73_m2} Normal > OR = 60 [facility] Comment on above: Performed By: #### 9 27, 6399, 12253, 7600, 59265, #### [facility] [place] [address] Electrical Design Engineer: Nash Ames MD Glucose [Mass/Vol] 97 mg/dL Normal 65-99 [facility] Comment on above: Result Comment: Fasting reference interval Performed By: #### 9 27, 6399, 61364, 7600, 38478, #### [facility] [place] [address] Electrical Design Engineer: Nash Ames MD Potassium [Moles/Vol] 4.8 mmol/L Normal 3.5-5.[address] [facility] Comment on above: Performed By: #### 9 27, 6399, 05805, 7600, 97410, 72136 #### [facility] of [place] [address] Electrical Design Engineer: Nash Ames MD Protein [Mass/Vol] 7.1 g/dL Normal 6.1-8.1 [facility] Comment on above: Performed By: #### 9 27, 6399, 63410, 7600, 01670, #### [facility] [address], [address] [place] [address] Electrical Design Engineer: Nash Ames MD Sodium [Moles/Vol] 136 mmol/L Normal 135-146 [facility] Comment on above: Performed By: #### 9 27, 6399, 92270, 7600, 39076, #### [facility] [address], [address] [place] [address] Electrical Design Engineer: Nash Ames MD Urea nitrogen [Mass/Vol] 23 mg/dL Normal 7-25 [facility] Comment on above: Performed By: #### 9 27, 6399, 37461, 7600, 94969, 87793 #### [facility] [place] [address] Electrical Design Engineer: Nash Ames MD HEMOGLOBIN A1c WITH eAGon eAG (mmol/L) 7.4 mmol/L Normal [facility] Comment on above: Performed By: #### 9 27, 6399, 52818, 7600, 24027, #### [facility] [place] [address] Electrical Design Engineer: Nash Ames MD HbA1c (Bld) [Mass fraction] [...] children. Performed By: #### 9 27, 6399, 09127, 7600, 35218, #### [facility] [address], [address] [place] [address] Electrical Design Engineer: Nash Ames MD Magnesium [Mass/Vol] 134 mg/dL Normal [facility] Comment on above: Performed By: #### 9 27, 6399, 13138, 7600, 66862, 42618 #### [facility] [facility] [address], [address] [place] [address] Electrical Design Engineer: Nash Ames MD LIPID PANEL, [facility] 05 Cholesterol [Mass/Vol] 126 mg/dL Normal <200 [facility] Comment on above: Order Comment: FASTI NG:YES FASTING: YES Performed By: #### 9 27, 6399, 58170, 7600, 53609, 97032 #### [facility] [address], [address] [place] [address] Electrical Design Engineer: Nash Ames MD Cholesterol in HDL [Mass/Vol] 62 mg/dL Normal > OR = 40 [facility] Comment on above: Order Comment: FASTI NG:YES FASTING: YES Performed By: #### 9 27, 6399, 05858, 7600, 32358, 49464 #### [facility] [address], [address] [place] [address] Electrical Design Engineer: Nash Ames MD Cholesterol in LDL [Mass/Vol] [...] LDL-C. Timothy SS et al. VIRGILIO. 2013;310(19): 5499-1254 (http://education.[employer].Prediculous/faq/HEQ533) Performed By: #### 9 27, 6399, 88766, 7600, 93738, 49805 #### [facility] [address], [address] [place], [place] [address] Electrical Design Engineer: Nash Ames MD Cholesterol.total/Cho lesterol in HDL [Mass ratio] 2.0 {ratio} Normal <5.0 [facility] Comment on above: Order Comment: FASTI NG:YES FASTING: YES Performed By: #### 9 27, 6399, 06298, 7600, 96600, 68232 #### [facility] [address], [address] [place] [address] Electrical Design Engineer: Nash Ames MD NON HDL CHOLESTEROL 64 mg/dL (calc) Normal <130 [facility] Comment on above: Order Comment: FASTI NG:YES FASTING: YES Result Comment: For patients with diabetes plus 1 major ASCVD risk factor, treating to a non-HDL-C goal of <100 mg/dL (LDL-C of <70 mg/dL) is considered a therapeutic option. Performed By: #### 9 27, 6399, 41968, 7600, 71344, #### [facility] [place] [address] Electrical Design Engineer: Nash Ames MD Triglyceride [Mass/Vol] 92 mg/dL Normal <150 [facility] Comment on above: Order Comment: FASTI NG:YES FASTING: YES Performed By: #### 9 27, 6399, 59227, 7600, 11055, 17109 #### [facility] [address], [address] [place] [address] Electrical Design Engineer: Nash Ames MD PSA, TOTAL, MONITORINGon PSA, [...] disease. Performed By: #### 9 27, 6399, 10659, 7600, 36593, 61470 #### [facility] [address], [address] [place] [address] Electrical Design Engineer: Nash Ames MD TSH W/REFLEX TO FT4on 2024 TSH W/REFLEX TO FT4 1.70 mIU/L Normal 0.40-4.50 [facility] Comment on above: Performed By: #### 9 27, 6399, 32077, 7600, 96624, 28659 #### [facility] [address], [address] [place] [address] Electrical Design Engineer: Nash Ames MD VITAMIN B12on 07-16-2024 Cobalamin [...] symptoms. Performed By: #### 9 27, 6399, 95923, 7600, 11123, 22166 #### [facility] [place] [address] Electrical Design Engineer: Nash Ames MD CBC panel Auto (Bld)on 01-19 Erythrocyte distribution width (RBC) [Ratio] 13.4 % Normal 11.5-14.5 [facility] Comment on above: Performed By: #### 5 8410-2 #### CECY WONG ([id number]) [facility] ([facility]) [address] [place] [address] 78191 Hematocrit (Bld) [Volume fraction] 43.8 % Normal 41.0-52.0 [facility] Comment on above: Performed By: #### 5 8410-2 #### CECY WONG ([id number]) [facility] ([facility]) [address] [place] [address] 69648 Hemoglobin (Bld) [Mass/Vol] 14.1 g/dL Normal 13.5-17.5 [facility] Comment on above: Performed By: #### 5 8410-2 #### CECY WONG ([id number]) [facility] ([facility]) [address] [place] [address] 76815 MCH (RBC) [Entitic mass] 29.7 pg Normal 26.0-34.0 [facility] Comment on above: Performed By: #### 5 8410-2 #### CECY WONG ([id number]) [facility] ([facility]) [address] [place] [address] 49798 MCHC (RBC) [Mass/Vol] 32.2 g/dL Normal 32.0-36.0 [facility] Comment on above: Performed By: #### 5 8410-2 #### CECY WONG ([id number]) [facility] ([facility]) [address] [place] [address] 07913 MCV (RBC) [Entitic vol] 92 fL Normal 80-100 [facility] Comment on above: Performed By: #### 5 8410-2 #### CECY WONG ([id number]) [facility] ([facility]) [address] [place] [address] 00143 Nucleated RBC/100 WBC (Bld) [Ratio] 0.0 /100 WBCs Normal 0.0-0.0 [facility] Comment on above: Performed By: #### 5 8410-2 #### CECY WONG ([id number]) [facility] ([facility]) [address] [place] [address] 17792 Platelets (Bld) [#/Vol] 197 x10*3/uL Normal 150-450 [facility] Comment on above: Performed By: #### 5 8410-2 #### CECY WONG ([id number]) [facility] ([facility]) [address] [place] [address] 93648 RBC (Bld) [#/Vol] 4.74 x10*6/uL Normal 4.50-5.90 [facility] Comment on above: Performed By: #### 5 8410-2 #### CECY WONG ([id number]) [facility] ([facility]) [address] [place] [address] WBC (Bld) [#/Vol] 8.0 x10*3/uL Normal 4.4-11.3 [facility] Comment on above: Performed By: #### 5 8410-2 #### CECY WONG ([id number]) [facility] ([facility]) [address] [place] [address] 99299 Cobalaminson 01-20-2024 Cobalamin (Vitamin B12) [Mass/Vol] 257 pg/mL Normal 211-911 [facility] Comment on above: Performed By: #### 2 132-9 #### HOLDEN Larson ([id number]) [facility] ([facility]) [address] [place] [address] 53362 Comprehensive metabolic 2000 panelon 01-20-2024 Albumin BCP dye [Mass/Vol] 4.0 g/dL Normal 3.4-5.0 [facility] Comment on above: Performed By: #### 2 4323-8 #### CECY WONG ([id number]) [facility] ([facility]) [address] [place] [address] 30030 ALP [Catalytic activity/Vol] 73 U/L Normal 33-136 [facility] Comment on above: Performed By: #### 2 4323-8 #### CECY WONG ([id number]) [facility] ([facility]) [address] [place] [address] 99673 ALT With P-5'-P [Catalytic activity/Vol] 11 U/L Normal 10-52 [facility] Comment on above: Result Comment: [place] ents treated with Sulfasalazine may generate falsely decreased results for ALT. Performed By: #### 2 4323-8 #### CECY WONG ([id number]) [facility] ([facility]) [address] [place] [address] 22593 Anion gap [Moles/Vol] 13 mmol/L Normal 10-20 [facility] Comment on above: Performed By: #### 2 4323-8 #### CECY WONG ([id number]) [facility] ([facility]) [address] [place] [address] AST With P-5'-P [Catalytic activity/Vol] 12 U/L Normal 9-39 [facility] Comment on above: Performed By: #### 2 432-8 #### CECY WONG ([id number]) [facility] ([facility]) [address] [place] [address] Bilirubin [Mass/Vol] 0.6 mg/dL Normal 0.0-1.2 [facility] Comment on above: Performed By: #### 2 4322-8 #### CECY WONG (84302) [facility] ([facility]) [address] [place] [address] 51310 Calcium [Mass/Vol] 9.5 mg/dL Normal 8.6-10.[address] [facility] Comment on above: Performed By: #### 2 4322-8 #### CECY WONG ([id number]) [facility] ([facility]) [address] [place] [address] 31810 Chloride [Moles/Vol] 99 mmol/L Normal 98-107 [facility] Comment on above: Performed By: #### 2 4322-8 #### CECY WONG ([id number]) [facility] ([facility]) [address] [place] [address] CO2 [Moles/Vol] 29 mmol/L Normal 21-32 [facility] Comment on above: Performed By: #### 2 4322-8 #### CECY WONG ([id number]) [facility] ([facility]) [address] [place] [address] Creatinine [Mass/Vol] 1.46 mg/dL High 0.50-1.30 [facility] Comment on above: Performed By: #### 2 432-8 #### CECY WONG ([id number]) [facility] ([facility]) [address] [place] [address] Glomerular filtration rate/1.73 sq M.predicted 48 mL/min/1.73m*2 Low >60 [facility] Comment on above: Result Comment: Calc ulations of estimated GFR are performed using the 2020 CKD-EPI Study Refit equation without the race variable for the IDMS-Traceable creatinine methods. https://jasn.asnjournals.org/content/early/ASN.035277 8339 Performed By: #### 2 4323-8 #### CECY WONG ([id number]) [facility] ([facility]) [address] [place] [address] 60094 Glucose [Mass/Vol] 100 mg/dL High 74-[address] [facility] Comment on above: Performed By: #### 2 4323-8 #### CECY WONG (22265) [facility] ([facility]) [address] [place] [address] 10686 Potassium [Moles/Vol] 5.0 mmol/L Normal 3.5-5.3 [facility] Comment on above: Performed By: #### 2 4323-8 #### CECY WONG ([id number]) [facility] ([facility]) [address] [place] [address] 44355 Protein [Mass/Vol] 6.4 g/dL Normal 6.4-8.[address] [facility] Comment on above: Performed By: #### 2 4323-8 #### CECY WONG ([id number]) [facility] ([facility]) [address] [place] [address] 97136 Sodium [Moles/Vol] 136 mmol/L Normal 136-[address] [facility] Comment on above: Performed By: #### 2 4323-8 #### CECY WONG ([id number]) [facility] ([facility]) [address] [place] [address] 14978 Urea nitrogen [Mass/Vol] 37 mg/dL High 6-23 [facility] Comment on above: Performed By: #### 2 4323-8 #### CECY WONG ([id number]) [facility] ([facility]) [address] [place] [address] 62499 HbA1c (Bld) [Mass fraction]o n 01-20-2024 Average glucose Estimated from glycated hemoglobin (Bld) [Mass/Vol] 131 mg/dL Normal Not Established [facility] Comment on above: Order Comment: Diagn osis of Diabetes-Adults Non-Diabetic: < or = 5.6% Increased risk for developing diabetes: 5.7-6.4% Diagnostic of diabetes: > or = 6.5% Performed By: #### 4 548-4 #### HOLDEN Larson ([id number]) [facility] ([facility]) [address] [place] [address] Hemoglobin A1c/Hemoglobin.to myles 01-20-2024 HbA1c (Bld) [Mass fraction] 6.2 % High See comment [facility] Comment on above: Order Comment: Diagn osis of Diabetes-Adults Non-Diabetic: < or = 5.6% Increased risk for developing diabetes: 5.7-6.4% Diagnostic of diabetes: > or = 6.5% Performed By: #### 4 548-4 #### HOLDEN Larson ([id number]) [facility] ([facility]) [address] [place] [address] 71742 Lipid 1996 panelon 4 Cholesterol [Mass/Vol] 109 mg/dL Normal 0-199 [facility] Comment on above: Result Comment: Age [...] By: #### 2 4331-1 #### SAM MARVIN ([id number]) [facility] ([facility]) [address] [place] [address] Cholesterol in HDL [Mass/Vol] 46.0 mg/dL Normal [facility] Comment on above: Result Comment: Age Very Low Low Normal High 0-19 Y < 35 < 40 40-45 ---- 20-24 Y ---- < 40 >45 ---- >24 Y ---- < 40 40-60 >60 Performed By: #### 2 4331-1 #### CECY WONG ([id number]) [facility] ([facility]) [address] [place] [address] 78231 Cholesterol in LDL [Mass/Vol] 42 mg/dL Normal <=99 [facility] Comment on above: Result Comment: Near Borderline AGE Desirable Optimal High High Very High 0-19 Y 0 - 109 --- 110-129 >/= 130 ---- 20-24 Y 0 - 119 --- 120-159 >/= 160 ---- >24 Y 0 - 99 100-129 130-159 160-189 >/=190 Performed By: #### 2 4331-1 #### CECY WONG ([id number]) [facility] ([facility]) [address] [place] [address] 21817 Cholesterol in VLDL [Mass/Vol] 21 mg/dL Normal 0-40 [facility] Comment on above: Performed By: #### 2 4331-1 #### CECY WONG ([id number]) [facility] ([facility]) [address] [place] [address] 92057 CHOLESTEROL/HDL RATIO 2.4 Normal [facility] Comment on above: Result Comment: Ref Values Desirable < 3.4 High Risk > 5.0 Performed By: #### 2 4331-1 #### CECY WONG ([id number]) [facility] ([facility]) [address] [place] [address] 38774 NON HDL CHOLESTEROL 63 mg/dL Normal 0-149 [facility] Comment on above: Result Comment: Age Desirable Borderline High High Very High 0-19 Y 0 - 119 120 - 144 >/= 145 >/= 160 20-24 Y 0 - 149 150 - 189 >/= 190 ---- >24 Y 30 mg/dL above LDL Cholesterol goal Performed By: #### 2 4331-1 #### CECY WONG ([id number]) [facility] ([facility]) [address] [place] [address] 22992 Triglyceride [Mass/Vol] 106 mg/dL Normal 0-149 [facility] Comment on above: Result Comment: Age [...] By: #### 2 4331-1 #### CECY WONG ([id number]) [facility] ([facility]) [address] [place] [address] 01984 Prostate specific Agon 01-19 Prostate specific Ag [Mass/Vol] ng/mL Normal <=4.00 [facility] Comment on above: Order Comment: The DA requires that the method used for PSA assay be reported to the physician. Values obtained with different assay methods must not be used interchangeably. This test was performed at [facility] using the [employer] PSA assay is a two-site immunoenzymatic sandwich assay. The assay is approved for measurement of prostate-specific antigen (PSA)in serum and may be used in conjunction with a digital rectal examination in men 50 years and older as an aid in detection of prostate cancer. 6-Uxtvi-cyewcfpws inhibitors (e.g. Proscar, Finasteride, Avodart, Dutasteride and Yessica) for the treatment of BPH have been shown to lower PSA levels by an average of 50% after 6 months of treatment. Performed By: #### 2 857-1 #### HOLDEN Larson ([id number]) [facility] ([facility]) [address] [place] [address] Comprehensive metabolic 2000 panelon 07-03-2023 Albumin BCP dye [Mass/Vol] 3.9 g/dL Normal 3.4-5.0 [facility] Comment on above: Performed By: #### 2 4323-8 #### CECY WONG ([id number]) [facility] ([facility]) [address] [place] [address] ALP [Catalytic activity/Vol] 62 U/L Normal 33-136 [facility] Comment on above: Performed By: #### 2 432-8 #### CECY WONG ([id number]) [facility] ([facility]) [address] [place] [address] ALT With P-5'-P [Catalytic activity/Vol] 11 U/L Normal 10-52 [facility] Comment on above: Result Comment: [place] ents treated with Sulfasalazine may generate falsely decreased results for ALT. Performed By: #### 2 4323-8 #### CECY WONG (78784) [facility] ([facility]) [address] [place] [address] 37687 Anion gap [Moles/Vol] 12 mmol/L Normal 10-20 [facility] Comment on above: Performed By: #### 2 4323-8 #### CECY WONG (18212) [facility] ([facility]) [address] [place] [address] 91293 AST With P-5'-P [Catalytic activity/Vol] 13 U/L Normal 9-39 [facility] Comment on above: Performed By: #### 2 4323-8 #### CECY WONG ([id number]) [facility] ([facility]) [address] [place] [address] 34940 Bilirubin [Mass/Vol] 0.5 mg/dL Normal 0.0-1.2 [facility] Comment on above: Performed By: #### 2 4323-8 #### CECY WONG ([id number]) [facility] ([facility]) [address] [place] [address] 26881 Calcium [Mass/Vol] 9.6 mg/dL Normal 8.6-10.[address] [facility] Comment on above: Performed By: #### 2 4323-8 #### CECY WONG ([id number]) [facility] ([facility]) [address] [place] [address] Chloride [Moles/Vol] 100 mmol/L Normal 98-107 [facility] Comment on above: Performed By: #### 2 4323-8 #### CECY WONG ([id number]) [facility] ([facility]) [facility] [place] [address] CO2 [Moles/Vol] 29 mmol/L Normal 21-32 [facility] Comment on above: Performed By: #### 2 4323-8 #### CECY WONG ([id number]) [facility] ([facility]) [address] [place] [address] 02862 Creatinine [Mass/Vol] 1.59 mg/dL High 0.50-1.30 [facility] Comment on above: Performed By: #### 2 4323-8 #### CECY WONG ([id number]) [facility] ([facility]) [address] [place] [address] 74933 Glomerular filtration rate/1.73 sq M.predicted 43 mL/min/1.73m*2 Low >60 [facility] Comment on above: Result Comment: Calc ulations of estimated GFR are performed using the 2020 CKD-EPI Study Refit equation without the race variable for the IDMS-Traceable creatinine methods. https://jasn.asnjournals.org/content//ASN.294612 4599 Performed By: #### 2 4323-8 #### CECY WONG ([id number]) [facility] ([facility]) [facility] [place] [address] Glucose [Mass/Vol] 142 mg/dL High 74-[address] [facility] Comment on above: Performed By: #### 2 4323-8 #### CECY WONG ([id number]) [facility] ([facility]) [facility] [place] [address] Potassium [Moles/Vol] 4.5 mmol/L Normal 3.5-5.3 [facility] Comment on above: Performed By: #### 2 4323-8 #### CECY WONG (49981) [facility] ([facility]) [address] [place] [address] Protein [Mass/Vol] 6.2 g/dL Low 6.4-8.[address] [facility] Comment on above: Performed By: #### 2 4323-8 #### CECY WONG ([id number]) [facility] ([facility]) [address] [place] [address] Sodium [Moles/Vol] 136 mmol/L Normal 136-[address] [facility] Comment on above: Performed By: #### 2 4323-8 #### CECY WONG ([id number]) [facility] ([facility]) [address] [place] [address] Urea nitrogen [Mass/Vol] 32 mg/dL High 6-23 [facility] Comment on above: Performed By: #### 2 4323-8 #### CECY WONG ([id number]) [facility] ([facility]) [address] [place] [address] HbA1c (Bld) [Mass fraction]o n 07-03-2023 Average glucose Estimated from glycated hemoglobin (Bld) [Mass/Vol] 134 mg/dL Normal Not Established [facility] Comment on above: Order Comment: Diagn osis of Diabetes-Adults Non-Diabetic: < or = 5.6% Increased risk for developing diabetes: 5.7-6.4% Diagnostic of diabetes: > or = 6.5% Monitoring of Diabetes Age (y)....................... Therapeutic Goal (%) Adults: >18.........................<7.0 Pediatrics: 13-18...................<7.5 Pediatrics: 7-12....................<8.0 Pediatrics: 0-6..................... 7.5-8.5 [employer]. Diabetes Care 33(S1)Mar 2009 Performed By: #### 4 548-4 #### HOLDEN Larson ([id number]) [facility] ([facility]) [address] [place], [place] [address] Hemoglobin A1c/Hemoglobin.to myles 07-03-2023 HbA1c (Bld) [Mass fraction] 6.3 % High see below [facility] Comment on above: Order Comment: Diagn osis of Diabetes-Adults Non-Diabetic: < or = 5.6% Increased risk for developing diabetes: 5.7-6.4% Diagnostic of diabetes: > or = 6.5% Monitoring of Diabetes Age (y)....................... Therapeutic Goal (%) Adults: >18.........................<7.0 Pediatrics: 13-18...................<7.5 Pediatrics: 7-12....................<8.0 Pediatrics: 0-6..................... 7.5-8.5 [employer]. Diabetes Care 33(S1)Mar 2009 Performed By: #### 4 548-4 #### HOLDEN Larson ([id number]) [facility] (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 Having some leaking urine that is better on the medication. 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 Eye: Not injected Respiratory: No respiratory distress. Symmetrical chest wall expans (more content not included)... 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, psychotic disturbance, mood disturbance, 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) Hiatal hernia (553.3) (K44.9) HTN (hypertension) (401.9) (I10) Hypercholesterolemia (272.0) (E78.00) History of Diabetic neuropathy, 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,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) Prostate cancer (185) (C61) Low back pain (724.2) (M54.50) Pseudophakia, both eyes (V43.1) (Z96.1) Orders Coronary atherosclerosis of zuni coronary artery Renew: Clopidogrel Bisulfate 75 MG [...] 0.4 MG Sublingual Tablet Sublingual Chief Complaint [facility] Adult Risk Screening Depression/Suicide Screening: During the [...] [Mass/Vol] 4.2 g/dL Normal 3.4 - 5.0 [facility] Comment on above: Performed By: #### C MP #### [address] [address] ALP [Catalytic activity/Vol] 53 U/L Normal 33 - 136 [facility] Comment on above: Performed By: #### C MP #### [address] [address] ALT [Catalytic activity/Vol] 12 U/L Normal 10 - 52 [facility] Comment on above: Result Comment: [place] ents treated with Sulfasalazine may generate falsely decreased results for ALT. Performed By: #### C MP #### [address] [address] Anion gap [Moles/Vol] 13 mmol/L Normal 10 - 20 [facility] Comment on above: Performed By: #### C MP #### [address] [address] AST [Catalytic activity/Vol] 14 U/L Normal 9 - 39 [facility] Comment on above: Performed By: #### C MP #### [address] [address] Bilirubin [Mass/Vol] 0.8 mg/dL Normal 0.0 - 1.2 [facility] Comment on above: Performed By: #### C MP #### [address] [address] [address] Calcium [Mass/Vol] 9.5 mg/dL Normal 8.6 - 10.3 [facility] Comment on above: Performed By: #### C MP #### [address] [address] Chloride [Moles/Vol] 98 mmol/L Normal 98 - 107 [facility] Comment on above: Performed By: #### C MP #### [address] [address] Creatinine [Mass/Vol] 0.91 mg/dL Normal 0.50 - 1.30 [facility] Comment on above: Performed By: #### C MP #### [address] [address] GFR/1.73 sq M.predicted among non-blacks MDRD (S/P/Bld) [Vol rate/Area] 85 mL/min/{1.73_m2} Normal >90 [facility] Comment on above: Result Comment: CALC ULATIONS OF ESTIMATED GFR ARE PERFORMED USING THE 2020 CKD-EPI STUDY REFIT EQUATION WITHOUT THE RACE VARIABLE FOR THE IDMS-TRACEABLE CREATININE METHODS. https://jasn.asnjournals.org/content/early//ASN.579858 4130 Performed By: #### C MP #### [address] [address] Glucose [Mass/Vol] 135 mg/dL High 74 - 99 [facility] Comment on above: Performed By: #### C MP #### [address] [address] HCO3 (Bld) [Moles/Vol] 29 mmol/L Normal 21 - 32 [facility] Comment on above: Performed By: #### C MP #### [address] [address] Potassium [Moles/Vol] 4.5 mmol/L Normal 3.5 - 5.3 [facility] Comment on above: Performed By: #### C MP #### [address] [address] Protein [Mass/Vol] 6.8 g/dL Normal 6.4 - 8.2 [facility] Comment on above: Performed By: #### C MP #### [address] [address] Sodium [Moles/Vol] 135 mmol/L Low 136 - 145 [facility] Comment on above: Performed By: #### C MP #### [address] [address] Urea nitrogen [Mass/Vol] 23 mg/dL Normal 6 - 23 [facility] Comment on above: Performed By: #### C MP #### [address] [address] HEMOGLOBIN A1Con 01-10-2022 Glucose [Mass/Vol] 151 mg/dL Normal [facility] Comment on above: Performed By: #### H BA1E #### [address] [address] HbA1c (Bld) [Mass fraction] 6.9 % Abnormal [facility] Comment on above: Result Comment: Diag nosis of Diabetes-Adults Non-Diabetic: < or = 5.6% Increased risk for developing diabetes: 5.7-6.4% Diagnostic of diabetes: > or = 6.5% . Monitoring of Diabetes Age (y) Therapeutic Goal (%) Adults: >18 <7.0 Pediatrics: 13-18 <7.5 7-12 <8.0 0- 6 7.5-8.5 [employer]. Diabetes Care 33(S1), Mar 2009. Performed By: #### H BA1E #### [address] [address] LIPID PANEL (CORONARY RISK 2 )on 01-10-2022 Cholesterol [Mass/Vol] 105 mg/dL Normal 0 - 199 [facility] Comment on above: Result Comment: . AGE [...] dosing. Performed By: #### L IPID #### [address] [address] Cholesterol in HDL [Mass/Vol] 40.0 mg/dL Normal [facility] Comment on above: Result Comment: . AGE VERY LOW LOW NORMAL HIGH 0-19 Y < 35 < 40 40-45 ---- 20-24 Y ---- < 40 >45 ---- >24 Y ---- < 40 40-60 >60 . Performed By: #### L IPID #### [address] [address] Cholesterol in LDL [Mass/Vol] 41 mg/dL Normal 0 - 99 [facility] Comment on above: Result Comment: . NEAR BORD AGE DESIRABLE OPTIMAL HIGH HIGH VERY HIGH 0-19 Y 0 - 109 --- 110-129 >/= 130 ---- 20-24 Y 0 - 119 --- 120-159 >/= 160 ---- >24 Y 0 - 99 100-129 130-159 160-189 >/=190 . Performed By: #### L IPID #### [address] [address] Cholesterol in VLDL [Mass/Vol] 24 mg/dL Normal 0 - 40 [facility] Comment on above: Performed By: #### L IPID #### [address] [address] Cholesterol.total/Cho lesterol in HDL [Mass ratio] 2.6 {ratio} Normal [facility] Comment on above: Result Comment: REF VALUES DESIRABLE < 3.4 HIGH RISK > 5.0 Performed By: #### L IPID #### [address] [address] Triglyceride [Mass/Vol] 121 mg/dL Normal 0 - 149 [facility] Comment on above: Result Comment: . AGE [...] dosing. Performed By: #### L IPID #### [address] [address] PROSTATE SPECIFIC AGon 01-10 Prostate specific Ag [Mass/Vol] ng/mL Critically low 0.00 - 4.00 [facility] Comment on above: Result Comment: The FDA requires that the method used for PSA assay be reported to the physician. Values obtained with different assay methods must not be used interchangeably. This test was performed at [facility] using the [employer] PSA assay is a two-site immunoenzymatic sandwich assay. The assay is approved for measurement of prostate-specific antigen (PSA)in serum and may be used in conjunction with a digital rectal examination in men 50 years and older as an aid in detection of prostate cancer. 9-Epqmv-qqxakqzqg inhibitors (e.g. Proscar, Finasteride, Avodart, Dutasteride and Yessica) for the treatment of BPH have been shown to lower PSA levels by an average of 50% after 6 months of treatment. Performed By: #### P SA #### [address] [address] TSH WITH REFLEX TO FREE T4 I F ABNORMALon 01-10-2022 TSH Qn 1.29 m[IU]/L Normal 0.44 - 3.98 [facility] Comment on above: Result Comment: TSH testing is performed using different testing methodology at [facility] than at other [place] [facility]. Direct result comparisons should only be made within the same method. Performed By: #### T HYDS #### [address] [address] Absolute lymphocyte counton 12-06-2021 Lymphocytes Auto (Unsp spec) [#/Vol] 2.47 10*3/uL 0.83-4.51 [facility] Work Phone: Basophil percentageon 2021 Basophils/100 WBC (Bld) 0.5 % 0-1 [facility] Work Phone: Chloride [Moles/Vol] 101 mmol/L 98-107 [facility] Work Phone: Eosinophils/100 WBC (Bld) 2.4 % 0-5 [facility] Work Phone: Glucose [Mass/Vol] 128 mg/dL 74-106 [facility] Work Phone: Comment on above: Fasting Glucose resu lt greater than or equal to 126 mg/dL suggests DIABETES MELLITUS per A.D.A. criteria. Neutrophils (Bld) [#/Vol] 3.8 10*3/uL 2.0-7.7 [facility] Work Phone: Neutrophils/100 WBC (Bld) 51.5 % 47-70 [facility] Work Phone: Potassium [Moles/Vol] 3.8 mmol/L 3.5-5.1 [facility] Work Phone: Sodium [Moles/Vol] 138 mmol/L 136-145 [facility] Work Phone: [phone] WBC (Bld) [#/Vol] 7.4 10*3/uL 4.4-11.0 [facility] Work Phone: Blood erythrocytes count (nu mber/volume)on 12-06-2021 RBC (Bld) [#/Vol] 5.30 10*6/uL 4.6-6.2 [facility]: Blood hemoglobin measurement (mass/volume)on 12-06-2021 Hemoglobin (Bld) [Mass/Vol] 15.9 g/dL 13.0-16.5 [facility] Work Phone: Blood lymphocytes/100 leukoc yteson 12-06-2021 Lymphocytes/100 WBC (Bld) 33.3 % 19-41 [facility] Work Phone: [phone] Blood monocytes/100 leukocyt eson 12-06-2021 Monocytes/100 WBC (Bld) 12.0 % 0-10 [facility] Work Phone: [phone] Blood platelet mean volumeon 12-06-2021 Platelet mean volume (Bld) [Entitic vol] 9.6 fL 6.2-12.0 [facility] Work Phone: [phone] Determination of erythrocyte mean corpuscular volume (MCV)on 12-06-2021 MCV (RBC) [Entitic vol] 89.2 fL 80-94 [facility] Work Phone: Hematocrit Auto (Bld) [Volum e fraction]on 12-06-2021 Hematocrit (Bld) [Volume fraction] 47.3 % 40-54 [facility] Work Phone: Laboratory - Chemistry and C hemistry - challengeon 12-06-2021 CO2 [Moles/Vol] 30.0 mmol/L 21.0-32.0 [facility] Work Phone: [phone] Magnesium [Mass/Vol] 1.4 mg/dL 1.6-2.6 [facility] Work Phone: [phone] Urea nitrogen/Creatinine [Mass ratio] 21.6 mg/mg 10-20 [facility] Work Phone: [phone] Laboratory - Hematology and Cell countson 12-06-2021 Erythrocyte distribution width (RBC) [Entitic vol] 42.6 fL 35.1-43.9 [facility] Work Phone: [phone] Erythrocyte distribution width (RBC) [Ratio] 13.1 % 11.6-14.6 [facility] Work Phone: [phone] Immature granulocytes/100 WBC (Bld) 0.300 % 0.0-0.9 [facility] Work Phone: [phone] Comment on above: IG% - Immature Granu locytes (promyelocytes, myelocytes and metamyelocytes) > 1% indicates that a LEFT SHIFT is Present. MCH (RBC) [Entitic mass] 30.0 pg 27.0-32.0 [facility] Work Phone: [phone] Nucleated RBC/100 WBC (Bld) [Ratio] 0 % 0-5 [facility] Work Phone: [phone] MCHC Auto (RBC) [Mass/Vol]on 12-06-2021 MCHC (RBC) [Mass/Vol] 33.6 g/dL 32-36 [facility] Work Phone: [phone] Panel Informationon 12-06 Estimated Creatinine Clearance Calc 55.72 ml/min [facility] Work Phone: [phone] Estimated GFR (MDRD) Amer 82 mL/min >60 [facility] Work Phone: [phone] Comment on above: GFR Calc Estimated GFR (MDRD) Non-Af Amer 68 mL/min >60 [facility] Work Phone: [phone] Comment on above: Non- GFR Calc Troponin I High Sensitivity 6 pg/mL 3.0-78.0 [facility] Work Phone: [phone] Comment on above: Please Note: New Lima t Units and Gender Specific Reference Ranges. For more information see Policy Stat Procedure [place] High Sensitivity Troponin (TNIH) and attachments. Platelets bldon 12-06-2021 Platelets (Bld) [#/Vol] 198 10*3/uL 150-450 [facility] Work Phone: Serum or plasma calcium lisa urement (mass/volume)on 12-06-2021 Calcium [Mass/Vol] 9.3 mg/dL 8.5-10.1 [facility] Work Phone: Serum or plasma creatinine m easurement (mass/volume)on 12-06-2021 Creatinine [Mass/Vol] 1.11 mg/dL 0.70-1.30 [facility] Work Phone: Comment on above: The validity of the calculated GFR & GFRAA in patients over 70 years has not been determined. Clinical correlation is essential. 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 Normal [facility] BASIC METABOLIC PANELon 04-3 Anion gap [Moles/Vol] 13 mmol/L Normal 10 - 20 [facility] Comment on above: Performed By: #### B MP #### [address] [address] Calcium [Mass/Vol] 9.4 mg/dL Normal 8.6 - 10.3 [facility] Comment on above: Performed By: #### B MP #### [address] [address] Chloride [Moles/Vol] 98 mmol/L Normal 98 - 107 [facility] Comment on above: Performed By: #### B MP #### [address] [address] Creatinine [Mass/Vol] 1.07 mg/dL Normal 0.50 - 1.30 [facility] Comment on above: Performed By: #### B MP #### [address] [address] GFR/1.73 sq M.predicted among non-blacks MDRD (S/P/Bld) [Vol rate/Area] 70 mL/min/{1.73_m2} Normal >90 [facility] Comment on above: Result Comment: CALC ULATIONS OF ESTIMATED GFR ARE PERFORMED USING THE 2020 CKD-EPI STUDY REFIT EQUATION WITHOUT THE RACE VARIABLE FOR THE IDMS-TRACEABLE CREATININE METHODS. https://jasn.asnjournals.org/content/early/ASN.685074 4323 Performed By: #### B MP #### [address] [address] Glucose [Mass/Vol] 143 mg/dL High 74 - 99 [facility] Comment on above: Performed By: #### B MP #### [address] [address] HCO3 (Bld) [Moles/Vol] 29 mmol/L Normal 21 - 32 [facility] Comment on above: Performed By: #### B MP #### [address] [address] Potassium [Moles/Vol] 4.7 mmol/L Normal 3.5 - 5.3 [facility] Comment on above: Performed By: #### B MP #### [address] [address] Sodium [Moles/Vol] 135 mmol/L Low 136 - 145 [facility] Comment on above: Performed By: #### B MP #### [address] [address] Urea nitrogen [Mass/Vol] 25 mg/dL High 6 - 23 [facility] Comment on above: Performed By: #### B MP #### [address] [address] HEMOGLOBIN A1Con 07-05-2021 Glucose [Mass/Vol] 157 mg/dL Normal [facility] Comment on above: Performed By: #### H BA1E #### [address] [address] HbA1c (Bld) [Mass fraction] 7.1 % Abnormal [facility] Comment on above: Result Comment: Diag nosis of Diabetes-Adults Non-Diabetic: < or = 5.6% Increased risk for developing diabetes: 5.7-6.4% Diagnostic of diabetes: > or = 6.5% . Monitoring of Diabetes Age (y) Therapeutic Goal (%) Adults: >18 <7.0 Pediatrics: 13-18 <7.5 7-12 <8.0 0- 6 7.5-8.5 [employer]. Diabetes Care 33(S1), Mar 2009. Performed By: #### H BA1E #### [facility] [address] [id number] Hemoglobin A1Con 07-05-2021 Glucose [Mass/Vol] 157 mg/dL [facility] Work Phone: HbA1c (Bld) [Mass fraction] 7.1 % Abnormal [facility] Work Phone: Comment on above: Diagnosis of Diabete s-Adults Non-Diabetic: < or = 5.6% Increased risk for developing diabetes: 5.7-6.4% Diagnostic of diabetes: > or = 6.5%. Monitoring of Diabetes Age (y) Therapeutic Goal (%) Adults: >18 <7.0 Pediatrics: 13-18 <7.5 7-12 <8.0 0- 6 7.5-8.5 [employer]. Diabetes Care 33(S1), Mar 2009. Laboratory - Chemistry and C hemistry - challengeon 07-05-2021 Anion gap [Moles/Vol] 13 mmol/L 10 - 20 [facility] Work Phone: Calcium [Mass/Vol] 9.4 mg/dL 8.6 - 10.3 [facility] Work Phone: Chloride [Moles/Vol] 98 mmol/L 98 - 107 [facility] Work Phone: CO2 [Moles/Vol] 29 mmol/L 21 - 32 [facility] Work Phone: Creatinine [Mass/Vol] 1.07 mg/dL See Below [facility] Work Phone: Comment on above: Reference Range: 0.5 0 - 1.30 Glucose [Mass/Vol] 143 mg/dL above high threshold 74 - 99 [facility] Work Phone: Potassium [Moles/Vol] 4.7 mmol/L 3.5 - 5.3 [facility] Work Phone: Sodium [Moles/Vol] 135 mmol/L below low threshold 136 - 145 [facility] Work Phone: Urea nitrogen [Mass/Vol] 25 mg/dL above high threshold [facility] Work Phone: No Panel Informationon 07-05 70 {mL/min/1.73m2} >90 [facility] Work Phone: Comment on above: CALCULATIONS OF JORGE MATED GFR ARE PERFORMED USING THE 2020 CKD-EPI STUDY REFIT EQUATION WITHOUT THE RACE VARIABLE FOR THE IDMS-TRACEABLE CREATININE METHODS.https://jasn.asnjournals.org/content/early// N.4775010876 VITAMIN B12on 07-05-2021 Cobalamin (Vitamin B12) [Mass/Vol] 278 pg/mL Normal 211 - 911 [facility] Comment on above: Performed By: #### V TB12 #### [facility] [address] [place] [address] Vitamin B12, Serumon 022 Cobalamin (Vitamin B12) [Mass/Vol] 278 pg/mL 211 - 911 [facility] Work Phone: Tobacco Screening.on 021 Fall risk assessment a) No falls within the last year [facility] Work Phone: Tobacco use status CPHS b) No [facility] Work Phone: Hemoglobin A1Con 12-28-2020 Glucose [Mass/Vol] 160 mg/dL [facility] Work Phone: HbA1c (Bld) [Mass fraction] 7.2 % Abnormal [facility] Work Phone: Comment on above: Diagnosis of Diabete s-Adults Non-Diabetic: < or = 5.6% Increased risk for developing diabetes: 5.7-6.4% Diagnostic of diabetes: > or = 6.5%. Monitoring of Diabetes Age (y) Therapeutic Goal (%) Adults: >18 <7.0 Pediatrics: 13-18 <7.5 7-12 <8.0 0- 6 7.5-8.5 [employer]. Diabetes Care 33(S1), Mar 2009. Laboratory - Chemistry and C hemistry - challengeon 12-28-2020 Albumin BCP dye [Mass/Vol] 4.2 g/dL 3.4 - 5.0 [facility] Work Phone: ALP [Catalytic activity/Vol] 52 U/L 33 - 136 [facility] Work Phone: [phone] ALT With P-5'-P [Catalytic activity/Vol] 18 U/L 10 - 52 [facility] Work Phone: [phone] Comment on above: Patients treated wit h Sulfasalazine may generate falsely decreased results for ALT. Anion gap [Moles/Vol] 12 mmol/L 10 - 20 [facility] Work Phone: AST With P-5'-P [Catalytic activity/Vol] 17 U/L 9 - 39 [facility] Work Phone: Bilirubin [Mass/Vol] 0.6 mg/dL 0.0 - 1.2 [facility] Work Phone: Calcium [Mass/Vol] 9.7 mg/dL 8.6 - 10.3 [facility] Work Phone: Chloride [Moles/Vol] 100 mmol/L 98 - 107 [facility] Work Phone: CO2 [Moles/Vol] 29 mmol/L 21 - 32 [facility] Work Phone: Creatinine [Mass/Vol] 0.94 mg/dL See Below [facility] Work Phone: Comment on above: Reference Range: 0.5 0 - 1.30 Glucose [Mass/Vol] 155 mg/dL above high threshold 74 - 99 [facility] Work Phone: Potassium [Moles/Vol] 4.0 mmol/L 3.5 - 5.3 [facility] Work Phone: Protein [Mass/Vol] 6.9 g/dL 6.4 - 8.2 [facility] Work Phone: Sodium [Moles/Vol] 137 mmol/L 136 - 145 [facility] Work Phone: [phone] Urea nitrogen [Mass/Vol] 18 mg/dL 6 - 23 [facility] Work Phone: [phone] Laboratory - Hematology and Cell countson 12-28-2020 Erythrocyte distribution width (RBC) [Ratio] 14.4 % See Below [facility] Work Phone: [phone] Comment on above: Reference Range: 11. 5 - 14.5 Hematocrit (Bld) [Volume fraction] 45.8 % See Below [facility] Work Phone: [phone] Comment on above: Reference Range: 41. 0 - 52.0 Hemoglobin (Bld) [Mass/Vol] 15.2 g/dL See Below [facility] Work Phone: [phone] Comment on above: Reference Range: 13. 5 - 17.5 MCHC (RBC) [Mass/Vol] 33.3 g/dL See Below [facility] Work Phone: [phone] Comment on above: Reference Range: 32. 0 - 36.0 MCV (RBC) [Entitic vol] 89 fL 80 - 100 [facility] Work Phone: [phone] Platelets (Bld) [#/Vol] 192 10*3/uL 150 - 450 [facility] Work Phone: [phone] RBC (Bld) [#/Vol] 5.12 {x10E12/L} See Below [facility] Work Phone: [phone] Comment on above: Reference Range: 4.5 0 - 5.90 WBC (Bld) [#/Vol] 5.1 10*3/uL 4.4 - 11.3 [facility] Work Phone: [phone] Lipid Panelon 12-28-2020 Cholesterol [Mass/Vol] 106 mg/dL 0 - 199 [facility] Work Phone: [phone] Comment on above: . AGE DESIRABLE BORD [...] guidelines reference: NCEP ATPIII Guidelines, VIRGILIO 2001, 258:5366-97. Venipuncture immediately after or during the administration of Metamizole may lead to falsely low results. Testing should be performed immediately prior to Metamizole dosing. Cholesterol in HDL [Mass/Vol] 38.0 mg/dL Abnormal [facility] Work Phone: Comment on above: . AGE VERY LOW LOW N ORMAL HIGH 0-19 Y < 35 < 40 40-45 ---- 20- 24 Y ---- < 40 >45 ---- >24 Y ---- < 40 40-60 >60. Cholesterol in LDL [Mass/Vol] 51 mg/dL 0 - 99 [facility] Work Phone: Comment on above: . NEAR BORD AGE ALISHA RABLE OPTIMAL HIGH HIGH VERY HIGH 0-19 Y 0 - 109 --- 110-129 >/= 130 ---- 20-24 Y 0 - 119 --- 120-159 >/= 160 ---- >24 Y 0 - 99 100-129 130-159 160-189 >/=190. Cholesterol.total/Cho lesterol in HDL [Mass ratio] 2.8 {ratio} [facility] Work Phone: Comment on above: REF VALUESDESIRABLE < 3.4HIGH RISK > 5.0 Triglyceride [Mass/Vol] 85 mg/dL 0 - 149 [facility] Work Phone: Comment on [...] Lipid Panel 17 mg/dL 0 - 40 [facility] Work Phone: No Panel Informationon 12-28 >60 >60 [facility] Work Phone: Comment on above: CALCULATIONS OF JORGE MATED GFR ARE PERFORMED USING THE MDRD STUDY EQUATION FOR THE IDMS-TRACEABLE CREATININE METHODS. CLIN CHEM 2007;53:766-72 Prostate Specific Antigenon 12-28-2020 Prostate specific Ag [Mass/Vol] ng/mL See Below -[facility] Work Phone: Comment on above: Reference Range: 0.0 0 - 4.00The FDA requires that the method used for PSA assay be reported to the physician. Values obtained with different assay methods must not be used interchangeably. This testwas performed at [facility] using the [employer] PSA assay is a two-site immunoenzymatic sandwich assay. The assay is approved for measurement of prostate-specific antigen (PSA)in serum and may be used in conjunction with a digital rectal examination in men 50 years and older as an aid in detection of prostate cancer.0-Xqlmd-pdrfdsybf inhibitors (e.g. Proscar, Finasteride, Avodart, Dutasteride and Yessica) for the treatment of BPH have been shown to lower PSA levels by an average of 50% after 6 months of treatment. Vitamin B12, Serumon 021 Cobalamin (Vitamin B12) [Mass/Vol] 291 pg/mL 211 - 911 [facility] Work Phone: MRI Brain w/wo Contraston MR Brain WO and W contrast IV Interpreted by: NEYDA PANCHAL06/18/20 15:43MRN: [id number] Name: ALL YOUNG STUDY:MRI BRAIN W/WO CONTRAST; 06/18/2020 2:58 pm INDICATION:Memory loss NO TO MRI QUESTION. COMPARISON:None. ORDERING CLINICIAN:JAKE DUQUE TECHNIQUE:Axial T2, FLAIR, DWI, gradient echo T2 and sagittal and coronal [id number] images of brain were acquired. Contrast was [...] signed by: NEYDA PANCHAL 06/18/20 15:43 Normal -[facility] Work Phone: Comment on above: ORDER REVISED TO A N R MRI BRAIN W/WO CONTRAST BY RADIOLOGIST; Original Order Number: [id number] NR MRI BRAIN W/WO CONTRASTon 06-18-2020 NR MRI BRAIN W/WO CONTRAST Patient Name: ALL YOUNG STUDY: MRI BRAIN W/WO CONTRAST; 06/18/2020 2:58 pm INDICATION: Memory loss NO TO MRI QUESTION. COMPARISON: None. ACCESSION NUMBER(S): [id number] ORDERING CLINICIAN: JAKE DUQUE TECHNIQUE: Axial T2, [...] Electronically signed by: NEYDA PANCHAL MD Normal [facility] BASIC METABOLIC PANELon 03-2 Anion gap [Moles/Vol] 14 mmol/L Normal 10 - 20 [facility] Comment on above: Performed By: #### B MP #### [address] [address] Calcium [Mass/Vol] 9.3 mg/dL Normal 8.6 - 10.3 [facility] Comment on above: Performed By: #### B MP #### [address] [address] Chloride [Moles/Vol] 98 mmol/L Normal 98 - 107 [facility] Comment on above: Performed By: #### B MP #### [address] [address] Creatinine [Mass/Vol] 0.99 mg/dL Normal 0.50 - 1.30 [facility] Comment on above: Performed By: #### B MP #### [address] [address] GFR- AM. >60 Normal >60 [facility] Comment on above: Result Comment: CALC ULATIONS OF ESTIMATED GFR ARE PERFORMED USING THE MDRD STUDY EQUATION FOR THE IDMS-TRACEABLE CREATININE METHODS. CLIN CHEM 2007;53:766-72 Performed By: #### B MP #### [address] [address] GFR-NON AM. >60 Normal >60 [facility] Comment on above: Performed By: #### B MP #### [address] [address] Glucose [Mass/Vol] 161 mg/dL High 74 - 99 [facility] Comment on above: Performed By: #### B MP #### [address] [address] HCO3 (Bld) [Moles/Vol] 25 mmol/L Normal 21 - 32 [facility] Comment on above: Performed By: #### B MP #### [address] [address] Potassium [Moles/Vol] 4.2 mmol/L Normal 3.5 - 5.3 [facility] Comment on above: Performed By: #### B MP #### [address] [address] Sodium [Moles/Vol] 133 mmol/L Low 136 - 145 [facility] Comment on above: Performed By: #### B MP #### [address] [address] Urea nitrogen [Mass/Vol] 21 mg/dL Normal 6 - [facility] Comment on above: Performed By: #### B MP #### [address] [address] HEMOGLOBIN A1Con 05-29-2020 Glucose [Mass/Vol] 186 mg/dL Normal [facility] Comment on above: Performed By: #### H BA1E #### [address] [address] HbA1c (Bld) [Mass fraction] 8.1 % Normal [facility] Comment on above: Result Comment: Diag nosis of Diabetes-Adults Non-Diabetic: < or = 5.6% Increased risk for developing diabetes: 5.7-6.4% Diagnostic of diabetes: > or = 6.5% . Monitoring of Diabetes Age (y) Therapeutic Goal (%) Adults: >18 <7.0 Pediatrics: 13-18 <7.5 7-12 <8.0 0- 6 7.5-8.5 [employer]. Diabetes Care 33(S1), Mar 2009. Performed By: #### H BA1E #### [address] [address] Hemoglobin A1Con 05-29-2020 HbA1c (Bld) [Mass fraction] 8.1 % [facility] Work Phone: Comment on above: Diagnosis of Diabete s-Adults Non-Diabetic: < or = 5.6% Increased risk for developing diabetes: 5.7-6.4% Diagnostic of diabetes: > or = 6.5%. Monitoring of Diabetes Age (y) Therapeutic Goal (%) Adults: >18 <7.0 Pediatrics: 13-18 <7.5 7-12 <8.0 0- 6 7.5-8.5 [employer]. Diabetes Care 33(S1), Mar 2009. HbA1c (Bld) [Mass fraction] 186 {MG/DL} [facility] Work Phone: Metabolic Panelon 05-29-2020 Anion gap [Moles/Vol] 14 mmol/L 10 - 20 [facility] Work Phone: Calcium [Mass/Vol] 9.3 mg/dL 8.6 - 10.3 [facility] Work Phone: Chloride [Moles/Vol] 98 mmol/L 98 - 107 [facility] Work Phone: CO2 [Moles/Vol] 25 mmol/L 21 - 32 [facility] Work Phone: Creatinine [Mass/Vol] 0.99 mg/dL See Below [facility] Work Phone: Comment on above: Reference Range: 0.5 0 - 1.30 Glucose [Mass/Vol] 161 mg/dL above high threshold 74 - 99 [facility] Work Phone: Potassium [Moles/Vol] 4.2 mmol/L 3.5 - 5.3 [facility] Work Phone: Sodium [Moles/Vol] 133 mmol/L below low threshold 136 - 145 [facility] Work Phone: Urea nitrogen [Mass/Vol] 21 mg/dL 6 - 23 [facility] Work Phone: Otheron 05-29-2020 >60 >60 [facility] Work Phone: Comment on above: CALCULATIONS OF JORGE MATED GFR ARE PERFORMED USING THE MDRD STUDY EQUATION FOR THE IDMS-TRACEABLE CREATININE METHODS. CLIN CHEM 2007;53:766-72 2 1 [facility] Work Phone: Comment on [...] - referral no t necessary at present [facility] Work Phone: TSH WITH REFLEX TO FREE T4 I F ABNORMALon 05-29-2020 TSH Qn 1.41 m[IU]/L Normal 0.44 - 3.98 [facility] Comment on above: Result Comment: TSH testing is performed using different testing methodology at [facility] than at other [facility] [place] [facility]. Direct result comparisons should only be made within the same method. Performed By: #### T HYDS #### [address] [address] Thyroidon 05-29-2020 TSH Qn 1.41 {mIU/L} See Below [facility] Work Phone: Comment on above: Reference Range: 0.4 4 - 3.98 TSH testing is performed using different testing methodology at [facility] than at other [facility] [place] [facility]. Direct result comparisons should only be made within the same method. ALBUMIN, URINE SPOTon 2019 ALBUMIN,URINE 12.0 mg/L Normal Not Established [facility] Comment on above: Performed By: #### A LBSP #### [address] [address] ALBUMIN/CREAT RATIO 12.4 ug/mg infrastructure analyst Normal 0.0 - 30.0 [facility] Comment on above: Performed By: #### A LBSP #### [address] [address] CREATININE,URINE 97.0 mg/dL Normal 20.0 - 370.0 [facility] Comment on above: Performed By: #### A LBSP #### [address] [address] COMPREHENSIVE PANELon 2019 Albumin [Mass/Vol] 4.3 g/dL Normal 3.4 - 5.0 [facility] Comment on above: Performed By: #### C MP #### [address] [address] ALP [Catalytic activity/Vol] 57 U/L Normal 33 - 136 [facility] Comment on above: Performed By: #### C MP #### [address] [address] ALT [Catalytic activity/Vol] 18 U/L Normal 10 - 52 [facility] Comment on above: Result Comment: [place] ents treated with Sulfasalazine may generate falsely decreased results for ALT. Performed By: #### C MP #### [address] [address] Anion gap [Moles/Vol] 11 mmol/L Normal 10 - 20 [facility] Comment on above: Performed By: #### C MP #### [address] [address] AST [Catalytic activity/Vol] 15 U/L Normal 9 - 39 [facility] Comment on above: Performed By: #### C MP #### [address] [address] Bilirubin [Mass/Vol] 0.4 mg/dL Normal 0.0 - 1.2 [facility] Comment on above: Performed By: #### C MP #### [address] [address] Calcium [Mass/Vol] 9.3 mg/dL Normal 8.6 - 10.3 [facility] Comment on above: Performed By: #### C MP #### [address] [address] Chloride [Moles/Vol] 97 mmol/L Low 98 - 107 [facility] Comment on above: Performed By: #### C MP #### [address] [address] Creatinine [Mass/Vol] 0.95 mg/dL Normal 0.50 - 1.30 [facility] Comment on above: Performed By: #### C MP #### [address] [address] GFR- AM. >60 Normal >60 [facility] Comment on above: Result Comment: CALC ULATIONS OF ESTIMATED GFR ARE PERFORMED USING THE MDRD STUDY EQUATION FOR THE IDMS-TRACEABLE CREATININE METHODS. CLIN CHEM 2007;53:766-72 Performed By: #### C MP #### [address] [address] GFR-NON AM. >60 Normal >60 [facility] Comment on above: Performed By: #### C MP #### [address] [address] Glucose [Mass/Vol] 150 mg/dL High 74 - 99 [facility] Comment on above: Performed By: #### C MP #### [address] [address] HCO3 (Bld) [Moles/Vol] 30 mmol/L Normal 21 - 32 [facility] Comment on above: Performed By: #### C MP #### [address] [address] Potassium [Moles/Vol] 4.3 mmol/L Normal 3.5 - 5.3 [facility] Comment on above: Performed By: #### C MP #### [address] [address] Protein [Mass/Vol] 6.9 g/dL Normal 6.4 - 8.2 [facility] Comment on above: Performed By: #### C MP #### [address] [address] Sodium [Moles/Vol] 134 mmol/L Low 136 - 145 [facility] Comment on above: Performed By: #### C MP #### [address] [address] Urea nitrogen [Mass/Vol] 22 mg/dL Normal 6 - 23 [facility] Comment on above: Performed By: #### C MP #### [address] [address] HEMOGLOBIN A1Con 01-06-2020 Glucose [Mass/Vol] 183 mg/dL Normal [facility] Comment on above: Performed By: #### H BA1E #### [address] [address] HbA1c (Bld) [Mass fraction] 8.0 % Normal [facility] Comment on above: Result Comment: Diag nosis of Diabetes-Adults Non-Diabetic: < or = 5.6% Increased risk for developing diabetes: 5.7-6.4% Diagnostic of diabetes: > or = 6.5% . Monitoring of Diabetes Age (y) Therapeutic Goal (%) Adults: >18 <7.0 Pediatrics: 13-18 <7.5 7-12 <8.0 0- 6 7.5-8.5 [employer]. Diabetes Care 33(S1), Mar 2009. Performed By: #### H BA1E #### [address] [address] LIPID PANEL (CORONARY RISK 2 )on 01-06-2020 Cholesterol [Mass/Vol] 96 mg/dL Normal 0 - 199 [facility] Comment on above: Result Comment: . AGE [...] dosing. Performed By: #### L IPID #### [address] [address] Cholesterol in HDL [Mass/Vol] 34.0 mg/dL Abnormal [facility] Comment on above: Result Comment: . AGE VERY LOW LOW NORMAL HIGH 0-19 Y < 35 < 40 40-45 ---- 20-24 Y ---- < 40 >45 ---- >24 Y ---- < 40 40-60 >60 . Performed By: #### L IPID #### [address] [address] Cholesterol in LDL [Mass/Vol] 30 mg/dL Normal 0 - 99 [facility] Comment on above: Result Comment: . NEAR BORD AGE DESIRABLE OPTIMAL HIGH HIGH VERY HIGH 0-19 Y 0 - 109 --- 110-129 >/= 130 ---- 20-24 Y 0 - 119 --- 120-159 >/= 160 ---- >24 Y 0 - 99 100-129 130-159 160-189 >/=190 . Performed By: #### L IPID #### [address] [address] Cholesterol in VLDL [Mass/Vol] 32 mg/dL Normal 0 - 40 [facility] Comment on above: Performed By: #### L IPID #### [address] [address] Cholesterol.total/Cho lesterol in HDL [Mass ratio] 2.8 {ratio} Normal [facility] Comment on above: Result Comment: REF VALUES DESIRABLE < 3.4 HIGH RISK > 5.0 Performed By: #### L IPID #### [address] [address] Triglyceride [Mass/Vol] 162 mg/dL High 0 - 149 [facility] Comment on above: Result Comment: . AGE [...] dosing. Performed By: #### L IPID #### [address] [address] PROSTATE SPECIFIC AGon 01-05 Prostate specific Ag [Mass/Vol] ng/mL Normal 0.00 - 4.00 [facility] Comment on above: Result Comment: The FDA requires that the method used for PSA assay be reported to the physician. Values obtained with different assay methods must not be used interchangeably. This test was performed at [facility] using the [employer] PSA assay is a two-site immunoenzymatic sandwich assay. The assay is approved for measurement of prostate-specific antigen (PSA)in serum and may be used in conjunction with a digital rectal examination in men 50 years and older as an aid in detection of prostate cancer. 1-Xcnoe-nkfdnedrl inhibitors (e.g. Proscar, Finasteride, Avodart, Dutasteride and Yessica) for the treatment of BPH have been shown to lower PSA levels by an average of 50% after 6 months of treatment. Performed By: #### P SA #### [address] [address] VITAMIN B12on 01-06-2020 Cobalamin (Vitamin B12) [Mass/Vol] 323 pg/mL Normal 211 - 911 [facility] Comment on above: Performed By: #### V TB12 #### [address] [address] BMPon 07-02-2018 Anion gap molar conc 11 mmol/L Normal 10-20 [facility] Comment on above: Performed By: #### 2 [id number] #### [facility] [address] [place] [address] Calcium mass conc 9.6 mg/dL Normal 8.6-10.3 [facility] Comment on above: Performed By: #### 2 [id number] #### [facility] [address] [place] [address] Chloride molar conc 100 mmol/L Normal 98-107 [facility] Comment on above: Performed By: #### 2 [id number] #### [facility] [address] [place] [address] CO2 molar conc 29.0 mmol/L Normal 21.0-32.0 [facility] Comment on above: Performed By: #### 2 [id number] #### [facility] [address] [place] [address] Creatinine mass conc 1.0 mg/dL Normal 0.5-1.3 [facility] Comment on above: Performed By: #### 2 [id number] #### [facility] [address] [place] [address] Glucose mass conc 186 mg/dL High 70-99 [facility] Comment on above: Performed By: #### 2 [id number] #### [facility] [address] [place] [address] Potassium molar conc 4.6 mmol/L Normal 3.5-5.3 [facility] Comment on above: Performed By: #### 2 [id number] #### [facility] [address] [place] [address] Sodium molar conc 135 mmol/L Low 136-145 [facility] Comment on above: Performed By: #### 2 [id number] #### [facility] [address] [place] [address] Urea nitrogen mass conc 20 mg/dL Normal 6-23 [facility] Comment on above: Performed By: #### 2 [id number] #### [facility] [address] [place] [address] Urea nitrogen/Creatinine mass ratio 20.0 ratio Normal 5.4-30.0 [facility] Comment on above: Performed By: #### 2 [id number] #### [facility] [place] [address] [id number] 07-02-2018 Hemoglobin A1c/Hemoglobin.total mass fraction (Bld) 8.3 % High 4.0-6.3 [facility] Comment on above: Performed By: #### 3 [id number] #### [facility] Chemistry Manual Subsection [address] [place] [address] Microalb/Creat Ratioon 07-02 Creatinine mass conc 158.0 mg/dL Normal 20.0-300.0 [facility] Comment on above: Performed By: #### 1 [id number] #### [facility] [address] [place] [address] Creatinine mass conc 11 ug/mg Normal 0-30 [facility] Comment on above: Performed By: #### 1 [id number] #### [facility] [address] [place] [address] Ur Microalbumin 1.7 mg/dL Normal 0.0-1.9 [facility] Comment on above: Performed By: #### 1 [id number] #### [facility] [address] [place] [address] eGFRon 07-02-2018 GFR/1.73 sq M predicted among non-blacks MDRD vol rate/area (S/P/Bld) mL/min/{1.73_m2} Normal [facility] Comment on above: Order Comment: Order added by Discern Expert. Performed By: #### 1 [id number] #### [facility] [address] [place] [address] BMPon 01-08-2018 Anion gap molar conc 12 mmol/L Normal 10-20 [facility] Comment on above: Performed By: #### 2 [id number] #### [facility] [address] [place] [address] Calcium mass conc 9.7 mg/dL Normal 8.6-10.3 [facility] Comment on above: Performed By: #### 2 [id number] #### [facility] [address] [place] [address] Chloride molar conc 96 mmol/L Low 98-107 [facility] Comment on above: Performed By: #### 2 [id number] #### [facility] [address] [place] [address] CO2 molar conc 29.0 mmol/L Normal 21.0-32.0 [facility] Comment on above: Performed By: #### 2 [id number] #### [facility] [address] [place] [address] Creatinine mass conc 1.0 mg/dL Normal 0.6-1.3 [facility] Comment on above: Performed By: #### 2 [id number] #### [facility] [address] [place] [address] Glucose mass conc 160 mg/dL High 70-99 [facility] Comment on above: Performed By: #### 2 [id number] #### [facility] [address] [place] [address] Potassium molar conc 4.4 mmol/L Normal 3.5-5.3 [facility] Comment on above: Performed By: #### 2 [id number] #### [facility] [address] [place] [address] Sodium molar conc 133 mmol/L Low 136-145 [facility] Comment on above: Performed By: #### 2 [id number] #### [facility] [address] [place] [address] Urea nitrogen mass conc 24 mg/dL High 6-23 [facility] Comment on above: Performed By: #### 2 [id number] #### [facility] [address] [place] [address] Urea nitrogen/Creatinine mass ratio 24.0 ratio Normal 5.4-30.0 [facility] Comment on above: Performed By: #### 2 [id number] #### [facility] [address] [place] [address] [id number] 01-08-2018 Hemoglobin A1c/Hemoglobin.total mass fraction (Bld) 8.3 % High 4.0-6.3 [facility] Comment on above: Performed By: #### 3 [id number] #### [facility] Chemistry Manual Subsection [address] [place] [address] Lipid Profileon 01-08-2018 Cholesterol in HDL mass conc 37 mg/dL Normal [facility] Comment on above: Performed By: #### 3 [id number] #### [facility] [address] [place] [address] Cholesterol in LDL mass conc 44 mg/dL Normal 0-130 [facility] Comment on above: Performed By: #### 3 [id number] #### [facility] [address] [place] [address] Cholesterol in VLDL mass conc 24 mg/dL Normal [facility] Comment on above: Performed By: #### 3 [id number] #### [facility] [address] [place] [address] Cholesterol mass conc 105 mg/dL Low 120-200 [facility] Comment on above: Performed By: #### 3 [id number] #### [facility] [address] [place] [address] Triglyceride mass conc 122 mg/dL Normal 0-150 [facility] Comment on above: Result Comment: AGE DESIRABLE BORDELINE HIGH 91 D - 9 Y 0 - 74 75 - 99 > 100 10 - 19 Y 0 - 89 90 - 129 > 130 20 - 24 Y 0 - 114 115 - 149 > 150 > 25 Y 0 - 149 150 - 199 200 - 499 Performed By: #### 3 [id number] #### [facility] [address] [place] [address] PSA Totalon 01-08-2018 PSA Total <0.10 Normal [facility] Comment on above: Performed By: #### 1 [id number] #### [facility] [address] [place] [address] eGFRon 01-08-2018 GFR/1.73 sq M predicted among non-blacks MDRD vol rate/area (S/P/Bld) mL/min/{1.73_m2} Normal [facility] Comment on above: Order Comment: Order added by Discern Expert. Performed By: #### 1 [id number] #### [facility] [address] [place] [address] ECG 12 Leadon 09-13-2017 Atrial Rate Invalid Interpretation Code [facility] P [place] Invalid Interpretation Code [facility] P-R Interval Invalid Interpretation Code [facility] Q-T Interval Invalid Interpretation Code [facility] Q-T Interval (corrected) Invalid Interpretation Code [facility] QRS Duration Invalid Interpretation Code [facility] QTC Calculation (Bezet) Invalid Interpretation Code [facility] R Spencer Invalid Interpretation Code [facility] T Spencer Invalid Interpretation Code [facility] Ventricular Rate Invalid Interpretation Code [facility] Vital Signs Date Time Vital Sign Value Performing Clinician Facility 09-21-2024 06:51-0400 Body height 177.[address] Jake Duque MD Work Phone: [facility] 01-20-2024 14:57-0500 Body mass index (BMI) [Ratio] 22.63 kg/m2 Jake Duque MD Work Phone: [facility] 01-20-2024 14:57-0500 Body weight 68.49 kg Jake Duque MD Work Phone: [facility] 01-20-2024 14:57-0500 Diastolic blood pressure 77 mm[Hg] Jake Duque MD Work Phone: [facility] 01-20-2024 14:57-0500 Heart rate 77 /min Jake Duque MD Work Phone: [facility] 01-20-2024 14:57-0500 SaO2% (BldA) [Mass fraction] 96 % Jake Duque MD Work Phone: [facility] 01-20-2024 14:57-0500 Systolic blood pressure 118 mm[Hg] Jake Duque MD Work Phone: [facility] 07-20-2023 14:48-0400 Body height 174 cm Jake Duque MD Work Phone: [facility] 07-20-2023 14:48-0400 Body mass index (BMI) [Ratio] 23.08 kg/m2 Jake Duque MD Work Phone: [facility] 07-20-2023 14:48-0400 Body weight 69.85 kg Jake Duque MD Work Phone: [facility] 07-20-2023 14:48-0400 Diastolic blood pressure 72 mm[Hg] Jake Duque MD Work Phone: [facility] 07-20-2023 14:48-0400 Heart rate 72 /min Jake Duque MD Work Phone: [facility] 07-20-2023 14:48-0400 SaO2% (BldA) [Mass fraction] 96 % Jake Duque MD Work Phone: [facility] 07-20-2023 14:48-0400 Systolic blood pressure 122 mm[Hg] Jake Duque MD Work Phone: [facility] 02-23-2023 14:27-0500 Body mass index (BMI) [Ratio] 23.48 kg/m2 Jake Duque MD Work Phone: [facility] 02-23-2023 14:27-0500 Body weight 72.12 kg Jake Duque MD Work Phone: [facility] 02-23-2023 14:27-0500 Diastolic blood pressure 72 mm[Hg] Jake Duque MD Work Phone: [facility] 02-23-2023 14:27-0500 Heart rate 69 /min Jake Duque MD Work Phone: [facility] 02-23-2023 14:27-0500 SaO2% (BldA) [Mass fraction] 96 % Jake Duque MD Work Phone: [facility] 02-23-2023 14:27-0500 Systolic blood pressure 116 mm[Hg] Jake Duque MD Work Phone: [facility] 01-11-2023 15:30-0500 Body mass index (BMI) [Ratio] 24.07 kg/m2 Jake Duque MD Work Phone: [facility] 01-11-2023 15:30-0500 Body weight 73.94 kg Jake Duque MD Work Phone: [facility] 01-11-2023 15:30-0500 Diastolic blood pressure 70 mm[Hg] Jake Duque MD Work Phone: [facility] 01-11-2023 15:30-0500 Heart rate 73 /min Jake Duque MD Work Phone: [facility] 01-11-2023 15:30-0500 SaO2% (BldA) [Mass fraction] 97 % Jake Duque MD Work Phone: [facility] 01-11-2023 15:30-0500 Systolic blood pressure 122 mm[Hg] Jake Duque MD Work Phone: [facility] 07-07-2022 15:19-0400 Body height 175.3 cm Jake Duque MD Work Phone: [facility] 07-07-2022 15:19-0400 Body mass index (BMI) [Ratio] 25.84 kg/m2 Jake Duque MD Work Phone: [facility] 07-07-2022 15:19-0400 Body weight 79.38 kg Jake Duque MD Work Phone: [facility] 07-07-2022 15:19-0400 Diastolic blood pressure 78 mm[Hg] Jake Duque MD Work Phone: [facility] 07-07-2022 15:19-0400 Heart rate 79 /min Jake Duque MD Work Phone: [facility] 07-07-2022 15:19-0400 SaO2% (BldA) [Mass fraction] 96 % Jake Duque MD Work Phone: [facility] 07-07-2022 15:19-0400 Systolic blood pressure 110 mm[Hg] Jake Duque MD Work Phone: [facility] 02-17-2022 13:53-0500 Body height 175.26 cm Jake Duque Work Phone: [facility] Work Phone: 02-17-2022 13:53-0500 Body mass index (BMI) [Ratio] 24.96 kg/m2 Jake Faith Duque Work Phone: [facility] Work Phone: 02-17-2022 13:53-0500 Body surface area Derived from formula 1.92 m2 Jake O Udque Work Phone: [facility] Work Phone: 02-17-2022 13:53-0500 Body weight 76.66 kg Jakejosé Rodgersyder Work Phone: [facility] Work Phone: 02-17-2022 13:53-0500 Diastolic blood pressure 76 mm[Hg] Jake O Duque Work Phone: [facility] Work Phone: 02-17-2022 13:53-0500 Heart rate 68 /min Jake Faith Moralezer Work Phone: [facility] Work Phone: 02-17-2022 13:53-0500 Systolic blood pressure 128 mm[Hg] Jake O Duque Work Phone: [facility] Work Phone: 12-06-2021 06:09-0400 Body temperature 98 [degF] [facility] Work Phone: 12-06-2021 06:09-0400 Diastolic blood pressure 82 mm[Hg] [facility] Work Phone: 12-06-2021 06:09-0400 Heart rate 61 /min [facility] Work Phone: 12-06-2021 06:09-0400 Respiratory rate 17 /min [facility] Work Phone: 12-06-2021 06:09-0400 SaO2% (BldA) [Mass fraction] 96 % [facility] Work Phone: 12-06-2021 06:09-0400 Systolic blood pressure 141 mm[Hg] [facility] Work Phone: 12-06-2021 04:09-0400 Body height 177.8 cm [facility] Work Phone: 12-06-2021 04:09-0400 Body mass index (BMI) [Ratio] 24.2 kg/m2 [facility] Work Phone: 12-06-2021 04:09-0400 Body weight 76.5 kg [facility] Work Phone: 01-09-2021 13:50-0400 Body height 175.9 cm Jake Duque Work Phone: [facility] Work Phone: 01-09-2021 13:50-0400 Body mass index (BMI) [Ratio] 25.51 kg/m2 Jake Duque Work Phone: [facility] Work Phone: 01-09-2021 13:50-0400 Body surface area Derived from formula 1.95 m2 Jake Duque Work Phone: [facility] Work Phone: 01-09-2021 13:50-0400 Body weight 78.93 kg Jake O Duque Work Phone: [facility] Work Phone: 01-09-2021 13:50-0400 Diastolic blood pressure 64 mm[Hg] Jake O Duque Work Phone: [facility] Work Phone: 01-09-2021 13:50-0400 Heart rate 72 /min Jake O Duque Work Phone: [facility] Work Phone: 01-09-2021 13:50-0400 Systolic blood pressure 110 mm[Hg] Jake O Duque Work Phone: [facility] Work Phone: 07-08-2020 11:37-0400 Body height 175.9 cm Jake Duque MD [facility] Work Phone: 07-08-2020 11:37-0400 Body mass index (BMI) [Ratio] 27.12 kg/m2 Jake Duque MD [facility] Work Phone: 07-08-2020 11:37-0400 Body surface area Derived from formula 2 m2 Jake Duqeu MD [facility] Work Phone: 07-08-2020 11:37-0400 Body weight 83.92 kg Jake Duque MD [facility] Work Phone: 07-08-2020 11:37-0400 Diastolic blood pressure 80 mm[Hg] Jake Duque MD [facility] Work Phone: Comment on above: Location: [facility]; 07-08-2020 11:37-0400 Heart rate 72 /min Jake Duque MD [facility] Work Phone: 07-08-2020 11:37-0400 Systolic blood pressure 124 mm[Hg] Jake Duque MD [facility] Work Phone: Comment on above: Location: [facility]; 05-29-2020 11:09-0400 BMI (Body Mass Index) 27.85 kg/m2 Jake Duque [facility] Practice Work Phone: 05-29-2020 11:09-0400 Body weight 86.18 kg Jake Rodgersyder [facility] Work Phone: 05-29-2020 11:09-0400 BP Diastolic 74 mm[Hg] Jake Duque [facility] Work Phone: Comment on above: Location: RUE; 05-29-2020 11:09-0400 BP Systolic 126 mm[Hg] Jake Duque -[facility] Work Phone: Comment on above: Location: RUE; 05-29-2020 11:090400 BSA (Body Surface Area) 2.03 m2 Jake Duque -[facility] Work Phone: 05-29-2020 11:090400 Height 175.9 cm Jake Roland [facility] Work Phone: 05-29-2020 11:09-0400 Pulse (Heart Rate) 68 /min Jake Duque [facility] Work Phone: 09-13-2017 13:01-0400 BMI (Body Mass Index) 28.71 kg/m2 Ryan Dillard [facility] 09-13-2017 13:01-0400 Height 177.8 cm Ryan Dillard [facility] 09-13-2017 13:01-0400 Weight 90.77 kg Ryan Dillard [facility] Encounters Encounter Date Encounter Type Care Provider Facility Start: 10-27-2024 ambulatory Chau Kohler cility:[facility] Start: 10-02-2024 ambulatory Jake Duque Facility :[facility] Start: 10-02-2024 Registered Referred Chau Smallwood MD [facility] Start: 09-05-2024 End: 09-05-[address] Jake Duque MD Work Phone: [facility] Start: 09-05-2024 End: 09-05-[address] Chau Smallwood MD -[facility] Work Phone: Start: 08-22-2024 End: 08-22-[address] Jake Duque MD Work Phone: [facility] Start: 08-22-2024 End: 08-22-2024 Departed Referred Chau Smallwood MD [facility] Start: 08-22-2024 Registered Referred Chau Smallwood MD [facility] Start: 08-22-2024 End: 08-22-2024 ambulatory Jake Duque Facility:[facility] Start: 08-08-2024 End: 08-08-[address] Jake Duque MD Work Phone: [facility] Start: 08-08-2024 End: 08-08-[address] Chau Smallwood MD -[facility] Work Phone: Start: 08-07-2024 End: 08-07-[address] 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); Hypercholesterolemia; Primary hypertension; Type 2 diabetes mellitus without complication, without long-term current use of insulin (Multi); Abnormal weight loss; Benign prostatic hyperplasia with urinary obstruction; Bilateral renal cysts; Cervical spondylolysis; 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; 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 (Multi); Hiatal hernia; Chronic bilateral low back pain without sciatica; Malignant neoplasm of skin; Prostate cancer (Multi); Pseudophakia, both eyes; 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, psychotic disturbance, mood disturbance, or anxiety; Urge incontinence of urine Start: 01-20-2024 End: 01-20-2024 ambulatory [facility] Start: 01-20-2024 End: 01-20-2024 ambulatory [facility] Start: 07-20-2023 End: 07-20-2023 Office outpatient visit 25 minutes Jake Duque MD Work Phone: [facility] Comment on above: Abnormal weight loss (Primary Dx); Benign prostatic hyperplasia with urinary obstruction; 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 (CMS-HCC); Diabetic [...] of urine Start: 07-03-2023 End: 07-03-2023 ambulatory [facility] Start: 02-23-2023 End: 02-23-2023 Office outpatient visit 15 minutes Jake Duque MD Work Phone: [facility] Comment on above: Diabetic mononeuropa thy associated with type 2 diabetes mellitus (CMS/HCC) (Primary Dx); Abnormal weight loss; 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, psychotic disturbance, mood disturbance, or anxiety (CMS/HCC) Start: 01-11-2023 End: 01-11-2023 Assay of hemosiderin, quant Jake Duque MD Work Phone: [facility] Work Phone: Start: 01-11-2023 End: 01-11-2023 Office outpatient visit 25 minutes Jake Duque MD Work Phone: [facility] Comment on above: Routine general medi jean examination at health care facility (Primary Dx); 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, psychotic disturbance, mood disturbance, or anxiety (CMS/HCC); Hypercholesterolemia; 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 (CMS/HCC); Primary [...] 25 minutes Jake Duque MD Work Phone: [facility] Comment on above: 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 (Primary Dx); Prostate cancer (CMS/HCC); Bilateral renal cysts; Cervical spondylolysis; 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 (CMS/HCC); 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 (CMS/HCC); Hiatal hernia; Hypercholesterolemia; Primary hypertension; Chronic bilateral low back pain without sciatica; 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, psychotic disturbance, mood disturbance, or anxiety (CMS/HCC); Malignant neoplasm of skin; Pseudophakia, both eyes; Urge incontinence of urine Start: 03-13-2022 AUDIT Jake Duque Work Phone: [facility] Work Phone: Start: 02-17-2022 Office outpatient vi sit 15 minutes Jake Duque Work Phone: [facility] Work Phone: Start: 02-17-2022 ambulatory Jake Duque [facility] [id number] Start: 01-13-2022 ambulatory Jake Duque Facil [id number] Start: 12-06-2021 End: 12-06-2021 Emergency department patient visit [facility] Start: 10-02-2021 AUDIT [facility] Start: 07-11-2021 ambulatory Jake Duque Facil [id number] Start: 07-07-2021 Chart Update Jake Faith [facility]que [facility] Work Phone: Start: 01-09-2021 Office outpatient vi sit 25 minutes Jake Faith Duque [facility] Work Phone: Start: 10-07-2020 AUDIT Jake Duque [facility] Work Phone: Start: 07-08-2020 Patient encounter procedure [facility] Work Phone: Start: 05-29-2020 Patient encounter procedure Jake Duque [facility] Work Phone: Start: 01-11-2020 Patient encounter procedure Jake Duque [facility] Work Phone: Start: 07-11-2019 Patient encounter procedure Jake Duque [facility] Work Phone: Start: 01-11-2019 Patient encounter procedure Jake Duque [facility] Work Phone: Start: 07-08-2018 End: 07-09-2018 Patient encounter procedure Jake Duque Facility:[facility] Start: 07-02-2018 End: 07-03-2018 Patient encounter procedure Jake Duque Facility:[facility] Start: 01-08-2018 End: 01-09-2018 Patient encounter procedure Jake Duque Facility:[facility] Start: 01-07-2018 End: 01-08-2018 Patient encounter procedure Jake Duque Facility:[facility] Start: 09-13-2017 End: 09-13-2017 Office outpatient visit 15 minutes Ryan Dillard Work Phone: [facility] Office Procedures Date Procedure Procedure Detail [...] Duque Cholecystectomy Jake Duque End: 01-24-2010 Colonoscopy aJke Duque Esophagogastroduodenoscopy R oger Roland Hernia repair Jake Duque Placement of stent i n coronary artery Jake Duque Repair of shoulder Jake Rodgersy triny Vasectomy Jake Duque Plan of Treatment Date Care Activity Detail Author Start: 07-10-2027 DTaP/Tdap/Td Vaccine s (2 - Td or Tdap) DTaP/Tdap/Td Vaccines (2 - Td or Tdap) [facility] Start: 01-19-2025 Lipid panel Lipid Panel [facility] Start: 07-19-2024 End: 01-19-2025 Comprehensive metabolic 2000 panel - Serum or Plasma Comprehensive metabolic panel Lab Routine 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) Expected: 07/19/2024 (Approximate), Expires: 01/19/2025 [facility] Service Area Work Phone: Comment on above: Expected: 07/19/2024 (Approximate), Expires: 01/19/2025 Start: 07-19-2024 End: 01-19-2025 Hemoglobin A1c/Hemoglobin.total in Blood Hemoglobin A1c Lab Routine 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) Expected: 07/19/2024 (Approximate), Expires: 01/19/2025 [facility] Work Phone: Comment on above: Expected: 07/19/2024 (Approximate), Expires: 01/19/2025 Start: 02-26-2024 COVID-19 Vaccine ( season) COVID-19 Vaccine ( season) [facility] Start: 01-20-2024 End: 01-20-2024 Patient encounter procedure 01/20/2024 3:00 PM EST Office Visit [facility] [address] [place] [id number] Jake Duque MD [address] [facility] [place] [address] [facility] Start: 01-20-2024 End: 07-19-2024 CBC panel - Blood by Automated count CBC Lab Routine 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) Expected: 01/20/2024 (Approximate), Expires: 07/19/2024 [facility] Service Area Work Phone: Comment on above: Expected: 01/20/2024 (Approximate), Expires: 07/19/2024 Start: 01-20-2024 End: 07-19-2024 Cobalamin (Vitamin B12) [Mass/volume] in Serum or Plasma Vitamin B12 Lab Routine 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) Expected: 01/20/2024 (Approximate), Expires: 07/19/2024 [facility] Work Phone: Comment on above: Expected: 01/20/2024 (Approximate), Expires: 07/19/2024 Start: 01-20-2024 End: 07-19-2024 Comprehensive metabolic 2000 panel - Serum or Plasma Comprehensive Metabolic Panel Lab Routine 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) Expected: 01/20/2024 (Approximate), Expires: 07/19/2024 [facility] Work Phone: Comment on above: Expected: 01/20/2024 (Approximate), Expires: 07/19/2024 Start: 01-20-2024 End: 07-19-2024 Hemoglobin A1c/Hemoglobin.total in Blood Hemoglobin A1C Lab Routine 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) Expected: 01/20/2024 (Approximate), Expires: 07/19/2024 [facility] Work Phone: Comment on above: Expected: 01/20/2024 (Approximate), Expires: 07/19/2024 Start: 01-20-2024 End: 07-19-2024 Lipid 1996 panel - Serum or Plasma Lipid Panel Lab Routine Hypercholesterolemia Expected: 01/20/2024 (Approximate), Expires: 07/19/2024 [facility] Work Phone: Comment on above: Expected: 01/20/2024 (Approximate), Expires: 07/19/2024 Start: 01-20-2024 End: 07-19-2024 Prostate specific Ag [Mass/volume] in Serum or Plasma Prostate Specific Antigen Lab Routine Prostate cancer (Multi) Expected: 01/20/2024 (Approximate), Expires: 07/19/2024 [facility] Work Phone: Comment on above: Expected: 01/20/2024 (Approximate), Expires: 07/19/2024 Start: 12-27-2023 Lipid panel Lipid Panel [facility] Start: 11-07-2023 Influenza vaccination Influenz a Vaccine (Season Ended) [facility] Start: 10-02-2023 Hemoglobin A1c measurement Diabetes: Hemoglobin A1C [facility] Start: 07-27-2023 End: 07-27-2023 Patient encounter procedure 07/27/2023 3:00 PM EDT Office Visit [facility] [address] [place] [phone] Jake Duque MD [address] [facility], [address] [place] [address] [facility] Start: 07-23-2023 End: 02-24-2024 Comprehensive metabolic 2000 panel - Serum or Plasma Comprehensive Metabolic Panel Lab Routine 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 (CMS/HCC) Expected: 07/23/2023 (Approximate), Expires: 02/24/2024 [facility] Service Area Work Phone: Comment on above: Expected: 07/23/2023 (Approximate), Expires: 02/24/2024 Start: 07-23-2023 End: 02-24-2024 Hemoglobin A1c/Hemoglobin.total in Blood Hemoglobin A1C Lab Routine 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 (CMS/HCC) Expected: 07/23/2023 (Approximate), Expires: 02/24/2024 [facility] Work Phone: Comment on above: Expected: 07/23/2023 (Approximate), Expires: 02/24/2024 Start: 03-28-2023 Hemoglobin A1c measurement Diabetes: Hemoglobin A1C [facility] Start: 02-16-2023 End: 02-16-2023 Patient encounter procedure 02/16/2023 4:00 PM EST Office Visit [facility] [address] [place] [phone] Jake Duque MD [address] [facility], [address] [place] [address] [facility] Start: 01-10-2023 Lipid panel Lipid Panel [facility] Start: 01-07-2023 End: 07-08-2023 CBC panel - Blood by Automated count CBC Lab Routine 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 (CMS/HCC) Expected: 01/07/2023 (Approximate), Expires: 07/08/2023 [facility] Work Phone: Comment on above: Expected: 01/07/2023 (Approximate), Expires: 07/08/2023 Start: 01-07-2023 End: 07-08-2023 Comprehensive metabolic 2000 panel - Serum or Plasma Comprehensive Metabolic Panel Lab Routine 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 (CMS/HCC) Expected: 01/07/2023 (Approximate), Expires: 07/08/2023 [facility] Work Phone: Comment on above: Expected: 01/07/2023 (Approximate), Expires: 07/08/2023 Start: 01-07-2023 End: 07-08-2023 Hemoglobin A1c/Hemoglobin.total in Blood Hemoglobin A1C Lab Routine 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 (CMS/HCC) Expected: 01/07/2023 (Approximate), Expires: 07/08/2023 [facility] Work Phone: Comment on above: Expected: 01/07/2023 (Approximate), Expires: 07/08/2023 Start: 01-07-2023 End: 07-08-2023 Lipid 1996 panel - Serum or Plasma Lipid Panel Lab Routine Hypercholesterolemia Expected: 01/07/2023 (Approximate), Expires: 07/08/2023 [facility] Work Phone: Comment on above: Expected: 01/07/2023 (Approximate), Expires: 07/08/2023 Start: 01-07-2023 End: 07-08-2023 Magnesium [Mass/volume] in Serum or Plasma Magnesium Lab Routine 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 ([facility]/HCC) Expected: 01/07/2023 (Approximate), Expires: 07/08/2023 [facility] Work Phone: Comment on above: Expected: 01/07/2023 (Approximate), Expires: 07/08/2023 Start: 01-07-2023 End: 07-08-2023 Prostate specific Ag [Mass/volume] in Serum or Plasma PSA Lab Routine Prostate cancer ([facility]) Expected: 01/07/2023 (Approximate), Expires: 07/08/2023 [facility] Service Area Work Phone: Comment on above: Expected: 01/07/2023 (Approximate), Expires: 07/08/2023 Start: 01-07-2023 End: 07-08-2023 TSH with reflex to Free T4 if abnormal TSH with reflex to Free T4 if abnormal Lab Routine Primary hypertension Expected: 01/07/2023 (Approximate), Expires: 07/08/2023 [facility] Work Phone: Comment on above: Expected: 01/07/2023 (Approximate), Expires: 07/08/2023 Start: 11-06-2022 COVID-19 Vaccine ( season) COVID-19 Vaccine ( season) [facility] Start: 11-06-2022 Influenza vaccination [facility] Start: 07-07-2022 EPV, Provider: Jake Duque, Status: Pen, Time: 3:30 PM EPV, Provider: Jake Duque, Status: Pen, Time: 3:30 PM [facility] Work Phone: Start: 04-12-2022 Hemoglobin A1c measurement Diabetes: Hemoglobin A1C [facility] Start: 01-13-2022 EPV, Provider: Jake Duque, Status: Pen, Time: 3:30 PM EPV, Provider: Jake Duque, Status: Pen, Time: 3:30 PM [facility] Work Phone: Start: 07-11-2021 EPV, Provider: Jake Dquue, Status: Pen, Time: 2:30 PM EPV, Provider: Jake Duque, Status: Pen, Time: 2:30 PM [facility] Work Phone: Start: 01-25-2021 COVID-19 Vaccine (4 - Booster for Pfizer series) COVID-19 Vaccine (4 - Booster for Pfizer series) [facility] Start: 01-25-2021 COVID-19 Vaccine (4 - Pfizer series) COVID-19 Vaccine (4 - Pfizer series) [facility] Start: 01-09-2021 EPV, Provider: Jake Duque, Status: Pen, Time: 2:00 PM EPV, Provider: Jake Duque, Status: Pen, Time: 2:00 PM [facility] Work Phone: Start: 01-08-2021 Assay of prostate specific antigen total Prostate Specific Antigen [facility] Work Phone: Start: 01-08-2021 CBC W Auto Differential panel - Blood Complete Blood Count [facility] Work Phone: Start: 01-08-2021 Comprehensive metabolic 2000 panel - Serum or Plasma Comprehensive Metabolic Panel [facility] Work Phone: Start: 01-08-2021 Cyanocobalamin vitam in b-12 Vitamin B12, Serum [facility] Work Phone: Start: 01-08-2021 Hemoglobin glycosylated a1c Hemoglobin A1C [facility] Work Phone: Start: 01-08-2021 Lipid panel Lipid Panel [facility] Work Phone: Start: 01-05-2021 Urine screening for protein Diabetes: Urine Protein Screening [facility] Start: 07-08-2020 Assay of prostate specific antigen total Prostate Specific Antigen [facility] Work Phone: Start: 07-08-2020 CBC W Auto Differential panel - Blood Complete Blood Count [facility] Work Phone: Start: 07-08-2020 Comprehensive metabolic 2000 panel - Serum or Plasma Comprehensive Metabolic Panel [facility] Work Phone: Start: 07-08-2020 Cyanocobalamin vitam in b-12 Vitamin B12, Serum [facility] Work Phone: Start: 07-08-2020 Hemoglobin glycosylated a1c Hemoglobin A1C [facility] Work Phone: Start: 07-08-2020 Lipid panel Lipid Panel [facility] Work Phone: Start: 01-11-2020 Assay of prostate specific antigen total Prostate Specific Antigen [facility] Work Phone: Start: 01-11-2020 Cobalamin (Vitamin B12) [Mass/Vol] Vitamin B12, Serum [facility] Work Phone: Start: 01-11-2020 Comprehensive metabolic 2000 panel [facility] Work Phone: Start: 01-11-2020 HbA1c (Bld) [Mass fraction] Hemoglobin A1C [facility] Work Phone: Start: 01-11-2020 Lipid panel Lipid Panel [facility] Work Phone: Start: 11-06-2017 [...] 60+ years (1 - 1-dose 60+ series) [facility] Start: 2002 Zoster vaccine hzv live for subcutaneous use ZOSTER VACCINE [facility] Start: 1992 Zoster Vaccines (1 o f 2) Zoster Vaccines (1 of 2) [facility] Start: 1952 Diabetic foot examination Diabetes: Foot Exam [facility] Start: 1952 Glaucoma screening Diabetes: R etinopathy Screening [facility] Start: 1952 Ophthalmic examinati on and evaluation Diabetes: Retinopathy Screening [facility] Start: 1942 Examination of skin Derm Melanoma Sk in Check [facility] Start: 1942 Screening colon[facility] Start: 1942 Tetanus vaccination TETANUS EVERY 10 YR [facility] Start: 1942 Yearly Adult Physical Yearly Adult P hysical [facility] Patient Education ED Chest Pain, Noncardiac ED Chest Wall Strain [facility] Work Phone: Patient referral [facility] Work Phone: NEGATED: Highlighted row has been ruled out! Planned Goals not documented [facility] Work Phone: Immunizations Immunization Date Immunization Notes Care Provider [facility] 01-01-2024 influenza, seasonal, injectable Jake Duque MD Work Phone: [facility] Work Phone: 01-01-2024 Pfizer Purple Cap SARS-CoV-2 Jake Duque MD Work Phone: [facility] Work Phone: 01-01-2024 Respiratory Synctial Virus (Rsv), Unspecified Jake Duque MD Work Phone: [facility] Work Phone: 01-23-2022 Pfizer COVID-19 Vac Bivalent 30 MCG/0.3ML Intramuscular Suspension Jake Duque Work Phone: [facility] Work Phone: Comment on above: Series: 12-01-2021 Fluzone High-Dose Quadrivalent 0.7 ML Intramuscular Suspension Prefilled Syringe Jake Duque Work Phone: [facility] Work Phone: Comment on above: Series: 09-26-2022 influenza virus vacc ine, unspecified formulation Jake Duque MD Work Phone: [facility] Work Phone: 08-24-2021 zoster vaccine recombinant Jake Duque Work Phone: [facility] Work Phone: Comment on above: Series: 08-24-2021 zoster vaccine, live Jake Duque Work Phone: [facility] Work Phone: Comment on above: Series: 06-20-2021 zoster vaccine recombinant Jake Duque Work Phone: [facility] Work Phone: Comment on above: Series: 11-30-2020 influenza, high dose seasonal, preservative-free Jakejosé Rodgersyder Work Phone: [facility] Work Phone: Comment on above: Series: 11-30-2020 influenza, seasonal, injectable Jake Rodgersyder Work Phone: [facility] Work Phone: Comment on above: Series: 11-30-2020 Influenza, Seasonal, Quadrivalent, Adjuvanted Jake Duque MD Work Phone: [facility] Work Phone: 11-30-2020 Pfizer-BioNTech COVI D-19 Vacc 30 MCG/0.3ML Intramuscular Suspension Jakejosé Moralezer Work Phone: [facility] Work Phone: Comment on above: Series: 04-24-2020 Pfizer-BioNTech COVI D-19 Vacc 30 MCG/0.3ML Intramuscular Suspension Jake Duque [facility] Work Phone: Comment on above: Series: 04-03-2020 Pfizer-BioNTech COVI D-19 Vacc 30 MCG/0.3ML Intramuscular Suspension Jakejosé Duque [facility] Work Phone: Comment on above: Series: 12-20-2019 influenza virus vacc ine, unspecified formulation Jake Duque Work Phone: [facility] Work Phone: Comment on above: Series: 12-20-2019 influenza, injectabl e, quadrivalent, preservative free Jake Duque MD Work Phone: [facility] Work Phone: 12-20-2019 influenza, seasonal, injectable Jake Duque [facility] Work Phone: Comment on above: Series: 12-20-2019 influenza, seasonal, injectable Jake Duque [facility] Work Phone: 01-06-2019 influenza, seasonal, injectable Jake Duque [facility] Work Phone: Comment on above: Series: 12-24-2017 influenza virus vacc ine, unspecified formulation; Translations: [influenza virus vaccine, unspecified formulation] Jake Duque [facility] Work Phone: Comment on above: Series: 07-09-2017 tetanus toxoid, redu omaira diphtheria toxoid, and acellular pertussis vaccine, adsorbed Jake Duque [facility] Work Phone: Comment on above: Series: 12-30-2016 influenza virus vacc ine, live, attenuated, for intranasal use Jake Duque MD Work Phone: [facility] Work Phone: 07-14-2016 pneumococcal conjuga te vaccine, 13 valent Jake Duque [facility] Work Phone: Comment on above: Series: 01-19-2011 pneumococcal polysaccharide vaccine, 23 valent Jake Duque [facility] Work Phone: Comment on above: Series: Payers Date Payer Category Payer Medicaid [id number] 2024 Medicare [id number] 2024 Self-pay [id number] 2023 Managed Care (Private) [facility] [id number] 2023 Private Health Insurance [id number] 2023 Private Health Insurance [id number] 2015 Medicare supplementa l policy (as second payer) HU[employer] MEDICARE SUPPLEMENT [id number] 2015 Private Health Insurance [id number] 2011 Private Health Insurance 2011 Private Health Insurance [id number] 1942 Unknown [id number] [id number] .717 1942 Unknown [id number] 2.16.840.1.864329.3.579.2 .356 1942 Unknown [id number] 2.16.840.1.371846.3.579.2 .356 1942 Unknown [id number] 2.16.840.1.514161.3.579.2 .356 1942 Unknown [id number] 2.16.840.1.710794.3.579.2 .1245 1942 Unknown [id number] 2.16.840.1.193802.3.579.2 .1245 1942 Unknown [id number] 2.16840.1.688266.3.579.2 .1244 1942 Unknown [id number] 2.16.840.1.067359.3.579.2 .1244 Unknown Unknown [id number] 2.16.840.1.679702.3.579.2 .462 Unknown [id number] 2.16.840.1.223540.3.579.2 .462 Unknown [id number] 2.16840.1.072340.3.579.2 .462 Unknown [id number] 2.16840.1.267811.3.579.2 .462 Unknown [id number] 2.16840.1.017640.3.579.2 .462 Unknown [id number] 2.16840.1.128448.3.579.2 .462 Unknown [id number] 2.16840.1.363461.3.579.2 .462 Social History Date Type Detail Facility Start: 09-13-2017 End: 09-21-2024 [facility] Former smoker [facility] Sex Assigned At Not on file [facility] Start: 07-07-2022 End: 01-11-2023 No recent foreign travel No recent foreign travel [facility] Work Phone: Start: 12-06-2021 Tobacco smoking status NHIS Unknown if ever smoked [facility] Work Phone: Start: 12-06-[address] [facility] Start: 12-06-2021 [facility] 1940 Sex Assigned At Male [facility] Start: 03-08-1954 End: 03-08-1964 History of tobacco use Current smoker [facility] Work Phone: Start: 03-08-1954 End: 03-08-1964 History of tobacco use Cigarette Smoker [facility] Work Phone: Start: 07-07-2022 End: 07-20-2023 Tobacco use and exposure Smokeless tobacco non-user [facility] Work Phone: Start: 07-07-2022 Alcohol intake Lifetime non-d marii (finding) [facility] Work Phone: Start: 07-07-2022 End: 01-11-2023 Tobacco use panel [facility] Work Phone: Start: 07-05-2022 Gender identity Identifies as male gender (finding) [facility] Work Phone: Start: 06-27-2022 End: 01-20-2024 Exposure to SARS-CoV-2 (event) Not sure [facility] Start: 01-11-2023 End: 01-20-2024 Alcohol intake Ex-drinker (finding) [facility] Work Phone: NEGATED: Highlighted row - - [facility] Work Phone: Functional Status Date Assessment Result Facility NEGATED: Highlighted row Functional performance Functional status health issues are not documented Disease [facility] Work Phone: Mental Status Date Assessment Result Facility 12-06-2021 Cognitive function Awake;Alert;A ppropria te;Inappropriate [facility] Work Phone: NEGATED: Highlighted row Cognitive function [Interpretation] Cognitive status health issues are not documented Disease -[facility] Work Phone: Clinical Notes 01-09-2021 to 01-20-2024 [...] States in August had pressure sore, used Jiar and it cleared, but notes today he [...] Bilateral renal cysts 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 Diabetic mononeuropathy [...] - Established; Future documented in this encounter [facility] Work Phone: 07-20-2023 History of Present [...] States in August had pressure sore, used [place] and it cleared, but notes today he [...] prostatic hyperplasia with urinary obstruction 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 documented in this encounter [facility] Work Phone: 01-11-2023 History of Present [...] on confused days. Follows with urologist in [place]. CERVICAL SPONDYLOSIS WITHOUT MYELOPATHY - has been [...] renal cysts Cervical spondylolysis Coronary atherosclerosis of zuni coronary artery Relevant Medications clopidogrel (Plavix) 75 [...] appetite. Patient initially seen by Melody Dunham [employer] student. I reviewed history and examined patient independently and updated as needed. documented in this encounter [facility] Work Phone: 07-07-2022 History of Present [...] Present, No bruit present. Integumentary: Warm, Dry, [place]. Psychiatric: Cooperative, Appropriate mood & affect, Normal judgment. Behavior: No pressured speech. Judgment: Able to make sensible decisions. Thought process: Appropriate. Low back not tender but tight with extension. No cogwheeling or tremor Assessment/Plan Problem List Items Addressed This Visit Benign prostatic hyperplasia with urinary obstruction - Primary Bilateral renal cysts Cervical spondylolysis Coronary atherosclerosis of zuni coronary artery Relevant Medications clopidogrel (Plavix) 75 mg tablet metoprolol succinate XL (Toprol-XL) 100 mg 24 hr tablet nitroglycerin (Nitrostat) 0.4 mg SL tablet 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 ([facility]) Relevant Orders CBC Comprehensive Metabolic Panel Hemoglobin A1C Magnesium Hiatal hernia Hypercholesterolemia Relevant Orders Lipid Panel Hypertension Relevant Orders TSH with reflex to Free T4 if abnormal Low back pain Malignant neoplasm of skin 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 Risk prevention instructions provided. He was in the yard. Stumbled due to slow reflexes. When having more confusion. No injury documented in this encounter [facility] Work Phone: 07-07-2022 Instructions Jake Duque [...] your healthcare team if you have questions [facility] 2021 documented in this encounter [facility] Work Phone: 01-13-2022 History of Present [...] Did have some swelling when driving to [place] after a long drive without walks.Having some leaking urine that is better on the medication. [facility] Work Phone: 01-09-2021 History of Present illness [...] up words. Names OK. 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 Last day is tomorrow. 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 (CMS/HCC) Diabetic [...] urine Urge incontinence documented in this encounter [facility] Work Phone: Evaluation note* Diagnosis Routine general medical examination at health care facility- Primary Routine general medical examination at a health care facility 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, psychotic disturbance, mood disturbance, or anxiety (CMS/HCC) Hypercholesterolemia Pure hypercholesterolemia 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 (CMS/HCC) Primary [...] of skin (CMS/HCC) documented in this encounter [facility] Work Phone: Evaluation note* Diagnosis 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 (CMS/HCC)- Primary Abnormal weight loss Loss of weight 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, psychotic disturbance, mood disturbance, or anxiety (CMS/HCC) documented in this encounter [facility] Work Phone: Evaluation note* Diagnosis Abnormal weight loss- Primary Loss of weight 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 I believe your pain is related to muscles in the chest wall. 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, psychotic disturbance, mood disturbance, or anxiety (CMS/[facility]) Procedures Follow Up In Primary Care Jake Duque MD [address] [facility], [place] [address] Referral ID Status Reason Start Date Expiration Date V isits Requested Visits Authorized [id number] Authorized 07/07/2022 01/03/2023 1 1 [facility] Work Phone: Reuqjm for referral (narrative)* Consultation (Routine) - Authorized Specialty Diagnoses / Procedures Referred By Contac t Referred To Contact Primary Care Diagnoses Abnormal weight loss Procedures Follow Up In Primary Care - Established Jake Duque MD [address] [facility], [place] [address] Referral ID Status Reason Start Date Expiration Date V isits Requested Visits Authorized [id number] Authorized 01/11/2023 01/11/2024 1 1 [facility] Work Phone: Replxs for referral (narrative)* Consultation (Routine) - Authorized Specialty Diagnoses / Procedures Referred By Contac t Referred To Contact Primary Care Procedures Follow Up In Primary Care - Established Jake Duque MD [address] [facility], [place] [phone] Referral ID Status Reason Start Date Expiration Date V isits Requested Visits Authorized [id number] Authorized 02/23/2023 02/23/2024 1 1 [facility] Work Phone: Recpqb for referral (narrative)* Consultation (Routine) - Authorized Specialty Diagnoses / Procedures Referred By Contac t Referred To Contact Primary Care Diagnoses 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) Procedures Follow Up In Primary Care - Established Jake Duque MD [address] [facility], [place] [address] Referral ID Status Reason Start Date Expiration Date V isits Requested Visits Authorized [id number] Authorized 07/20/2023 07/19/2024 1 1 [facility] Work Phone: reason for referral (narrative)* Consultation (Routine) - Authorized Specialty Diagnoses / Procedures Referred By Contac t Referred To Contact Primary Care Procedures Follow Up In Primary Care - Established Jake Duque MD [address] [facility], [place] [phone] Phone: tel: fax: Referral ID Status Reason Start Date Expiration Date V isits Requested Visits Authorized [id number] Authorized 01/20/2024 01/19/2025 1 1 [facility] Work Phone: reason for referral (narrative)No reason for referral [facility]: Assessments Diagnosis Coronary artery disease, ang cody presence unspecified, unspecified vessel or lesion type, unspecified whether zuni or transplanted heart Essential hypertension Unspecified essential [...] Will Yes December 06 4:12am Power of Director Patient Financial Services Yes December 06 4:12am Name of Medical Power of Director Patient Financial Services Yamila Young December 06, 2021 4:12am Chief Complaint medckfollow up memantine Chief Complaint and Reason for Visit Chief Complaint cp Chief Complaint Admit Date ADMISSION EXAM August 07, 2024 2:45p m Chief Complaint Admit Date ADMISSION EXAM August 07, 2024 2:45p m ADMISSION EXAM August 08, 2024 4:30p m [facility] August 22, 2024 5: 00am Chief Complaint Admit Date ADMISSION EXAM August 07, 2024 2:45p m ADMISSION EXAM August 08, 2024 4:30p m [facility] WORK August 22, 2024 5: 00am [...] section and content) DATE CREATED AUTHOR 07/17/2018 [facility] DATE CREATED AUTHOR AUTHOR'S ORGANIZ ATION 06/24/2020 [facility] DATE CREATED AUTHOR AUTHOR'S ORGANIZ ATION 02/18/2022 [employer] DATE CREATED AUTHOR AUTHOR'S ORGANIZ ATION 04/20/2022 [facility] DATE CREATED AUTHOR AUTHOR'S ORGANIZ ATION 01/25/2024 [facility] DATE CREATED AUTHOR AUTHOR'S ORGANIZ ATION 07/17/2024 [facility] DATE CREATED AUTHOR AUTHOR'S ORGANIZ ATION 09/02/2024 [facility] DATE CREATED AUTHOR AUTHOR'S ORGANIZ ATION 10/29/2024 [facility] Goals (unrecognized section and [...] Jake Duque MD [address] [facility], [place] [phone] Referral ID Status Reason Start Date Expiration Date V isits Requested Visits Authorized [id number] Authorized 02/23/2023 02/23/2024 1 1 Reason Comments Medicare Annual Wellness Visit Initial Specialty Diagnoses / Procedures Referred By Contac t Referred To Contact Primary Care Diagnoses 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, psychotic disturbance, mood disturbance, or anxiety (CMS/[facility]) Procedures Follow Up In Primary Care Jake Duque MD [address] [facility], [place] [phone] Referral ID Status Reason Start Date Expiration Date Visits Re quested Visits Authorized [id number] Closed 07/07/2022 01/03/2023 1 1 Reason Comments Follow-up memory Specialty Diagnoses / Procedures Referred By Contac t Referred To Contact Primary Care Diagnoses Abnormal weight loss Procedures Follow Up In Primary Care - Established Jake Duque MD [address] [facility], [place] [phone] Referral ID Status Reason Start Date Expiration Date V isits Requested Visits Authorized [id number] Authorized 01/11/2023 01/11/2024 1 1 Specialty Diagnoses / Procedures Referred By Contac t Referred To Contact Primary Care Diagnoses 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) Procedures Follow Up In Primary Care - Established Jake Duque MD [address] [facility], [place] [phone] Phone: tel: fax: Referral ID Status Reason Start Date Expiration Date V isits Requested Visits Authorized [id number] Authorized 07/20/2023 07/19/2024 1 1 Care Teams (unrecognized sec tion and content) [employer] Relationship Specialty Start Date End Date Jake Duque MD [address] [facility], [address] [place] [address] PCP - General 11/08/18 [employer] Relationship Specialty Start Date End Date Jake Duque MD [address] [facility], [address] [place] [address] PCP - General 11/08/18 [employer] Relationship Specialty Start Date End Date Jake Duque MD [address] [facility], [address] [place] [address] PCP - General 11/08/18 [employer] Relationship Specialty Start Date End Date Jake Duque MD [address] [facility], [address] [place] [address] PCP - General 11/08/18 [employer] Relationship Specialty Start Date End Date Jake Duque MD [address] [facility], [address] [place] [address] PCP - General 11/08/18 Team Status: Active Member Role/Relationship Status Dates Dr. Jake Duque MD Family Provider Active Dr. Jake Duque MD Primary Care Provider Active Team Status: Inactive Member Role/Relationship Status Dates Dr. Jkae Duque MD Primary Care Provider Active Start: August 07, 2024 End: August 07, 2024 Kirti Ortiz [employer], [employer]-C Attending Provider Active Start: August 07, 2024 [...] BE BASED ON THE PRIMARY CLINICAL RECORDS. [employer] provides no warranty or guarantee of the accuracy or completeness of information in this document.
[2024-11-07 08:51] LABS: AST(SGOT) 18 U/L (<=37); Alanine Aminotransfer ALT/SGPT 11 U/L (<=46); Albumin, Serum 3.5 g/dL (3.4-4.8); Alkaline Phosphatase 70 U/L (40-129); Bilirubin, Direct 0.19 mg/dL (0.00-0.30); Globulin 2.2 g/dL (2.2-4.2)
== END ==
LOC: OLS.WHLCAR 05:00
PROVIDERS: PCP Family Medicine; Visit Provider Internal Medicine
DX: I12.9 Hypertensive chronic kidney disease with stage 1 through stage 4 chronic kidney disease, or unspecified chronic kidney disease (principal); E11.22 Type 2 diabetes mellitus with diabetic chronic kidney disease; N18.9 Chronic kidney disease, unspecified; E11.41 Type 2 diabetes mellitus with diabetic mononeuropathy
CPT/HCPCS: 36415; 80076; 83036

== ENCOUNTER → 2025-01-09 05:00 | Outpatient (REF) | payer MEDICARE, OTHER, MEDICAID, SELFPAY ==
--- OUTSIDE RECORDS SUMMARY | 2025-01-09 03:59 | XMS RPT_ITS | CCD ---
Author Organization [facility] CliniSymt Care Team Providers Care Machine Container Washer Name Role Phone Len Duque Unavailable Len Duque Attending Unavailable Len Duque Primary Care Unavailable Len Duque Admitting Unavailable DuqueLen barnes Admitting Unavailable Len Duque Attending Unavailable DuqueLen barnes Primary Care Unavailable DuqueLen barnes Admitting Unavailable DuqueLen barnes Attending Unavailable DuqueLen barnes Primary Care Unavailable Len Duque Admitting Unavailable Len Duque Attending Unavailable Len Duque Primary Care Unavailable Len Duque Unavailable Unavailable Len Duque O Unavailable Unavailable Len Duque Unavailable Unavailable Len Duque MD Unavailable Unavailable Len Duque Unavailable Unavailable Len Duque Unavailable Unavailable Unavailable Len Duque Attending Unavailable Len Duque Referring Unavailable Len Duque Primary Care Unavailable Len Duque Attending Unavailable Len Duque Referring Unavailable Len Duque Primary Care Unavailable Len Duque Attending Unavailable Len Duque Referring Unavailable Len Duque Primary Care Unavailable Len Duque MD Primary Care Provider LEN DUQUE Primary Care Unavailable STENTZ, JOSIANE Primary Care Unavailable LEN DUQUE Attending Unavailable LEN DUQUE Referring Unavailable STENTZ, JOSIANE Primary Care Unavailable STENTZ, JOSIANE Attending Unavailable LEN DUQUE Referring Unavailable STENTZ, JOSIANE Primary Care Unavailable Duque MD, Dr. Len O Primary Care Provider Angel SPIRAL MACHINE OPERATOR-C, Kirti Attending Provider Chau Smallwood MD Attending Provider Unavailevelio Smallwood MD, Dr. Ritchie Attending Provider Ungoral SPIRAL MACHINE OPERATOR-CCatrina Attending Provider Olecarmelo OLS, Efewongbe Attending Unavailabl e Duque, Len O Primary Care Unavailable Oleghe OLS, Efewongbe Attending Unavailabl e Duque, Len O Primary Care Unavailable Duque, Len O Primary Care Unavailable Oleghe OLS, Efewongbe Attending Unavailabl e Oleghe, Efewongbe Attending Unavailable Duque, Len O Primary Care Unavailable Duque, Len O Primary Care Unavailable Osmar, Catrina Attending Unavailable Duque, Len O Primary Care Unavailable Tickton, Kirti Attending Unavailable Ivoryton, Kirti Attending Unavailable Duque, Len O Primary Care Unavailable Oleghe, Efewongbe Attending Unavailable Duque, Len O Primary Care Unavailable Oleghe OLS, Efewongbe Attending Unavailabl e Duque, Len O Primary Care Unavailable Allergies Allergy Classification Reported Allergen(s) Allergy Type Date of Onset Reaction(s) Facility NSAIDs (4 sources) NSAIDs; Translations: [NSAIDs] Drug Allergy [facility] Work Phone: (20 sources) nabumetone; Translations: [Relafen] Drug Allergy 5 Unknown [facility] Comment on above: KIDNEY DAMAGE (4 sources) nabumetone; Translations: [Relafen] Drug Allergy [facility] Repository (9 sources) NSAIDs; Translations: [NSAIDs] Propensity to adverse reactions to drug (disorder) [facility] Repository (7 sources) Non-steroidal anti-inflammator y agent; Translations: [NSAIDS (NON-STEROIDAL ANTI-INFLAMMATOR Y DRUG)] Drug Allergy 3 Unknown [facility] Work Phone: (5 sources) Mirtazapine; Translations: [MIRTAZAPINE] Drug Allergy 3 Other [facility] Work Phone: (1 source) amanda Drug Allergy 7 [facility] Repository Medications Current Medications Medication Drug Class(es) Dates Sig (Normalized) Sig (Original) atorvastatin 40 mg oral tablet (20 sources) HMG-CoA Reductase Inhibitor Start: 04-28-2016 End: 01-19-2025 take 1 tablet by mouth at bedtime Atorvastatin 40 MG tablet Active 40 mg PO AT BEDTIME April 28, 2016 1:00am clopidogrel 75 mg oral tablet (20 sources) [id number] Platelet Inhibitor Start: 09-10-2016 End: [...] mg PO DAILY April 28, 2016 1:00am Mtyidhqc-Xdzj-Cxc 3-S-Qqdg-Bosw (Osteo Bi-Flex Caplet) 1 EACH tablet (7 sources) Start: 04-28-2016 take 1 tablet by mouth once daily Ntwarmjx-Eahx-Hmz 5-X-Lwxe-Bosw (Osteo Bi-Flex Caplet) 1 EACH tablet Active 1 NMA PO DAILY April 28, 2016 1:00am Start: 04-28-2016 take 1 tablet by dmitri th once daily Hrlqrinz-Ophy-Lmk8-C-Isreal-Bosw (Osteo Bi -Flex Caplet) 1 EACH tablet [...] mg extended release oral capsule (8 sources) C-jilzul-N-aspart ate Receptor Antagonist Start: 10-01-2022 End: 04-08-2024 take 1 capsule by mouth once daily memantine (Namenda XR) 28 mg capsule,sprinkle,ER 24hr 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 90 capsule 3 04/09/2023 04/08/2024 Active Start: 02-17-2022 take 1 capsule by mo [facility] once daily Memantine HCl ER 28 MG Oral Capsule Extended Release 24 Hour TAKE 1 CAPSULE Daily Quantity: 90 Refills: 3 Ordered: 13-Mar-2022 Len Duque MD Start : 17-Feb-2022 Active change to 90 day supply Start: 01-13-2022 End: 02-17-2022 take 1 tablet by mouth twice daily Memantine HCl - 10 MG Oral Tablet TAKE 1 TABLET TWICE DAILY. Quantity: 60 Refills: 1 Ordered: 13-Jan-2022 Len Duque MD Start : 13-Jan-2022 End : 17-Feb-2022 Complete End: 01-11-2023 take 1 capsule by mouth once daily memantine 09-18-20- mg cap,sprinkle,ER 24hr dose pack Take 1 [...] Active Start: 04-17-2019 take 2 tablets by [facility] once daily metFORMIN HCl ER 500 MG Oral Tablet Extended Release 24 Hour TAKE 2 TABLET Daily Quantity: 180 Refills: 3 Ordered: 13-Jan-2022 Len Duque MD Start : 17-Apr-2019 Active Start: 04-17-2019 take 4 tablets by [facility] once daily metFORMIN HCl ER 500 MG Oral Tablet Extended Release 24 Hour TAKE 4 TABLET Daily Quantity: 360 Refills: 1 Ordered: 02-Oct-2021 Len Duque MD Start : 17-Apr-2019 Active Start: 04-28-2016 take 1 tablet by [facility] once daily Metformin 500 MG tablet Active 500 mg PO DAILY April 28, 2016 1:00am take 2 tablets by [facility] once daily metFORMIN XR (Glucophage-XR) 500 mg 24 hr tablet Take 2 tablets (1,000 mg) by mouth once daily. 0 Active methocarbamol 500 mg oral tablet (7 sources) Muscle Relaxant Start: 12-06-2021 take 1 [...] Daily Quantity: 135 Refills: 3 Ordered: 11-Jan-2020 Len Duque MD Start : 09-Jan-2019 Active Start: [...] With Folic Acid (Multivitamin) 1 TABLET tablet (7 sources) Start: 04-28-2016 take 1 tablet by [...] daily. Active nitroglycerin 0.4 mg sublingual tablet (20 sources) Nitrate Vasodilator Start: 01-11-20 15 Nitroglycerin 0.4 MG tablet, sublingual Active 0.4 mg SL NEEDED as needed for Angina April 28, 2016 1:00am omeprazole 20 mg delayed release oral capsule (17 sources) Proton Pump Inhibitor Start: 09-11-19 17 End: 07-08-19 23 take 1 capsule by mouth at dinner Omeprazole 20 MG capsule Active 20 mg PO WITH DINNER September 10, 2016 12:00am solifenacin succinate 10 mg oral tablet (8 sources) Cholinergic Muscarinic Antagonist Start: 09-11-19 17 [...] mg/ml ophthalmic solution (8 sources) Plasma Volume Director Of Broadcast Start: 03-12-2020 take 1 drop(s) into the eye(s) once daily as needed Artificial Tears 0.1-0.3 % Ophthalmic Solution INSTILL 1 DROP Daily PRN Quantity: 0 Refills: 0 Ordered: 12-Mar-2020 DO Start : 12-Mar-2020 Active 24 hr donepezil hydrochloride 10 mg / memantine hydrochloride 28 mg extended release oral capsule (2 sources) M-hnofte-D-aspart ate Receptor Antagonist Start: 09-14-2022 End: 01-11-2023 [...] daily Quantity: 90 Refills: 1 Ordered: 11-Jan-2020 Len Duque MD Start : 11-Jan-2020 Active sucralfate 1000 mg oral tablet (13 sources) Aluminum Complex Start: 01-09-2019 take 10 mL by mouth once daily Sucralfate 1 GM/10ML Oral Suspension TAKE 10 ML Daily Quantity: 900 Refills: 2 Len Duque Start : 09-Jan-2019 Active Start: 04-28-2016 [...] Problem Date Documented Date Episodic/Chronic Abdominal pain (7 sources) Abdominal pain; Translations: [Unspecified abdominal pain] 04-29-2016 Episodic Cancer of prostate (20 sources) Malignant tumor of prostate; Translations: [Malignant neoplasm of prostate] Onset: 07-07-2022 07-07-2022 Chronic Cancer of prostate (7 sources) History of malignant neoplasm of prostate; [...] 07-07-2022 07-07-2022 Chronic Diabetes mellitus without complication (17 sources) Type 2 diabetes mellitus; Translations: [Type 2 diabetes mellitus without complications] Onset: 07-20-2023 07-20-2023 Chronic Disorders of lipid metabolism (20 sources) Hypercholesterolemia; Translations: [Pure hypercholesterolemia] Onset: 07-07-2022 07-07-2022 Chronic Esophageal disorders (7 sources) Gastroesophageal reflux disease; Translations: [Gastro-esophageal reflux [...] disease] Onset: 07-20-2023 Chronic Nonspecific chest pain (10 sources) Chest pain; Translations: [Anterior chest wall [...] Translations: [Lumbago] Onset: 07-07-2022 07-07-2022 Episodic Unclassified (2 sources) Vascular dementia, moderate, without behavioral disturbance, [...] disturbance, mood disturbance, and anxiety] Onset: 01-20-2024 Urinary tract infections (1 source) Urinary tract infection, site not specified; Translations: [Urinary tract infection, site not specified] Onset: 01-04-2025 Episodic Past or Other Problems Problem Classification Problem [...] Test Name Value Interpretation Reference Range Facility Bilirubin directOrdered By: Chau Smallwood on 11-07-2024 Bilirubin.direct [Mass/Vol] 0.19 mg/dL 0.00-0.30 [facility] Bilirubin, totalOrdered By: Chau Smallwood on 11-07-2024 Bilirubin [Mass/Vol] 0.33 mg/dL 0.00-1.30 [facility] Hemoglobin A1c percentageOrd ered By: Chau Smallwood on 11-07-2024 HbA1c (Bld) [Mass fraction] 6.4 % High <5.7 [facility] Comment on above: Normal < 5.7 % Predi abetic 5.7 - 6.4 % Diabetic >or= 6.5 % Please note range changes. Laboratory - Chemistry and C hemistry - challengeOrdered By: Chau Smallwood on 11-07-2024 AST [Catalytic activity/Vol] 18 U/L <38 [facility] Serum globulin measurementOr dered By: Chau Smallwood on 11-07-2024 Globulin (S) [Mass/Vol] 2.2 g/dL 2.2-4.2 [facility] Serum or plasma alanine yepez otransferase (ALT) measurementOrdered By: Chau Smallwood on 11-07-2024 ALT [Catalytic activity/Vol] 11 U/L <47 [facility] Serum or plasma albumin lisa urement (mass/volume)Ordered By: Chau Smallwood on 11-07-2024 Albumin [Mass/Vol] 3.5 g/dL 3.4-4.8 [facility] Serum or plasma alkaline donavan sphatase measurementOrdered By: Chau Smallwood on 11-07-2024 ALP [Catalytic activity/Vol] 70 U/L 40-129 [facility] Total proteinOrdered By: Sam Smallwood on 11-07-2024 Protein [Mass/Vol] 5.7 g/dL Low 5.9-8.4 [facility] Absolute lymphocyte countOrd ered By: Chau Smallwood on 10-27-2024 Lymphocytes Auto (Unsp spec) [#/Vol] 1.40 10*3/uL 0.83-4.51 [facility] Absolute neutrophil countOrd ered By: Chau Smallwood on 10-27-2024 Neutrophils (Bld) [#/Vol] 5.1 10*3/uL 2.0-7.7 [facility] Anion gap in Serum or Plasma Ordered By: Chau Smallwood on 10-27-2024 Anion gap [Moles/Vol] 13 mmol/L 5-15 [facility] Automated lymphocyte count a s percentage of total leukocytesOrdered By: Chau Smallwood on 10-27-2024 Lymphocytes/100 WBC Auto (Unsp spec) 18.6 % Low 19-41 [facility] BUN/creatinine ratioOrdered By: Chau Smallwood on 10-27-2024 Urea nitrogen/Creatinine [Mass ratio] 24.8 mg/mg High 10-20 [facility] Basophil percentageOrdered B y: Chau Smallwood on 10-27-2024 Basophils/100 WBC (Bld) 0.4 % 0-1 [facility] Carbon dioxide, total [Moles /volume] in Central venous bloodOrdered By: Chau Smallwood on 10-27-2024 CO2 [Moles/Vol] 22.9 mmol/L 21.0-32.0 [facility] Chloride assayOrdered By: Omar Smallwood on 10-27-2024 Chloride [Moles/Vol] 103 mmol/L 98-108 [facility] Eosinophil percentageOrdered By: Chau Smallwood on 10-27-2024 Eosinophils/100 WBC (Bld) 1.9 % 0-5 [facility] Erythrocyte distribution wid th ratioOrdered By: Chau Smallwood on 10-27-2024 Erythrocyte distribution width (RBC) [Ratio] 13.2 % 11.6-14.6 [facility] Erythrocyte distribution wid th standard deviationOrdered By: Chau Smallwood on 10-27-2024 Erythrocyte distribution width (RBC) [Ratio] 43.2 fl 35.1-43.9 [facility] Glomerular filtration rate ( GFR) estimation/1.73 sq m using serum, plasma, or whole bOrdered By: Chau Smallwood on 10-27-2024 GFR/1.73 sq M.predicted among non-blacks MDRD (S/P/Bld) [Vol rate/Area] 55 mL/min/{1.73_m2} Low >60 [facility] Comment on above: mL/min/1.73m2 CKD-EP I Creatinine Equation (2020) Hematocrit Auto (Bld) [Volum e fraction]Ordered By: Chau Smallwood on 10-27-2024 Hematocrit (Bld) [Volume fraction] 39.9 % Low 40-54 [facility] Hemoglobin measurementOrdere d By: Chau Smallwood on 10-27-2024 Hemoglobin (Bld) [Mass/Vol] 13.5 g/dL 13.0-16.5 [facility] Immature granulocytes/100 WB C Auto (Bld)Ordered By: Chau Smallwood on 10-27-2024 Immature granulocytes/100 WBC (Bld) 0.400 % 0.0-0.9 [facility] Comment on above: IG% - Immature Granu locytes (promyelocytes, myelocytes and metamyelocytes) > 1% indicates that a LEFT SHIFT is Present. MCV (mean corpuscular volume ) determinationOrdered By: Chau Smallwood on 10-27-2024 MCV (RBC) [Entitic vol] 89.3 fL 80-94 [facility] Mean corpuscular hemoglobin (MCH) determinationOrdered By: Erasmoilwacoernie Smallwood on 10-27-2024 MCH (RBC) [Entitic mass] 30.2 pg 27.0-32.0 [facility] Mean corpuscular hemoglobin concentration (MCHC) determinationOrdered By: Chau Smallwood on 10-27-2024 MCHC (RBC) [Mass/Vol] 33.8 g/dL 32-36 [facility] Mean platelet volume determi nationOrdered By: Chau Smallwood on 10-27-2024 Platelet mean volume (Bld) [Entitic vol] 10.3 fL 6.2-12.0 [facility] Monocyte percentageOrdered B y: Chau Smallwood on 10-27-2024 Monocytes/100 WBC (Bld) 10.9 % High 0-10 [facility] Neutrophil percentageOrdered By: Chau Smallwood on 10-27-2024 Neutrophils/100 WBC (Bld) 67.8 % 47-70 [facility] Nucleated red blood cell per centageOrdered By: Chau Smallwood on 10-27-2024 Nucleated RBC/100 WBC (Bld) [Ratio] 0 % 0-5 [facility] Platelet countOrdered By: Omar efeyessy Smallwood on 10-27-2024 Platelets (Bld) [#/Vol] 149 10*3/uL Low 150-450 [facility] Potassium measurement (mass/ volume)Ordered By: Chau Smallwood on 10-27-2024 Potassium (Unsp spec) [Mass/Vol] 4.5 mmol/L 3.3-5.1 [facility] RBC Auto (Bld) [#/Vol]Ordere d By: Chau Smallwood on 10-27-2024 RBC (Bld) [#/Vol] 4.47 10*6/uL Low 4.6-6.[address] [facility] Serum creatinine measurement (mass/volume)Ordered By: Chau Smallwood on 10-27-2024 Creatinine [Mass/Vol] 1.30 mg/dL High 0.70-1.20 [facility] Serum glucose measurement (m ass/volume)Ordered By: Chau Smallwood on 10-27-2024 Glucose [Mass/Vol] 95 mg/dL 70-99 [facility] Serum or plasma calcium lisa urement (mass/volume)Ordered By: Chau Smallwood on 10-27-2024 Calcium [Mass/Vol] 9.3 mg/dL 7.6-11.0 [facility] Serum or plasma urea nitroge n measurement (mass/volume)Ordered By: Chau Smallwood on 10-27-2024 Urea nitrogen [Mass/Vol] 32 mg/dL High 4-19 [facility] Sodium levelOrdered By: Erasmo monetflash Cl on 10-27-2024 Sodium [Moles/Vol] 138 mmol/L 133-145 [facility] White blood cell (WBC) count Ordered By: Chau Smallwood on 10-27-2024 WBC (Bld) [#/Vol] 7.5 10*3/uL 4.4-11.0 [facility] Anion gap in Serum or Plasma Ordered By: Chau Smallwood on 10-02-2024 Anion gap [Moles/Vol] 11 mmol/L 5-15 [facility] BUN/creatinine ratioOrdered By: Chau Smallwood on 10-02-2024 Urea nitrogen/Creatinine [Mass ratio] 19.5 mg/mg 10-20 [facility] Carbon dioxide, total [Moles /volume] in Central venous bloodOrdered By: Chau Smallwood on 10-02-2024 CO2 [Moles/Vol] 24.2 mmol/L 21.0-32.0 [facility] Chloride assayOrdered By: Omar Smallwood on 10-02-2024 Chloride [Moles/Vol] 102 mmol/L 98-108 [facility] Glomerular filtration rate ( GFR) estimation/1.73 sq m using serum, plasma, or whole bOrdered By: Chau Smallwood on 10-02-2024 GFR/1.73 sq M.predicted among non-blacks MDRD (S/P/Bld) [Vol rate/Area] 59 mL/min/{1.73_m2} Low >60 [facility] Comment on above: mL/min/1.73m2 CKD-EP I Creatinine Equation (2020) Potassium measurement (mass/ volume)Ordered By: Chau Smallwood on 10-02-2024 Potassium (Unsp spec) [Mass/Vol] 4.8 mmol/L 3.3-5.1 [facility] Serum creatinine measurement (mass/volume)Ordered By: Chau Smallwood on 10-02-2024 Creatinine [Mass/Vol] 1.22 mg/dL High 0.70-1.20 [facility] Serum glucose measurement (m ass/volume)Ordered By: Chau Smallwood on 10-02-2024 Glucose [Mass/Vol] 119 mg/dL High 70-99 [facility] Serum or plasma calcium lisa urement (mass/volume)Ordered By: Chau Smallwood on 10-02-2024 Calcium [Mass/Vol] 9.5 mg/dL 7.6-11.0 [facility] Serum or plasma urea nitroge n measurement (mass/volume)Ordered By: Chau Smallwood on 10-02-2024 Urea nitrogen [Mass/Vol] 24 mg/dL High 4-19 [facility] Sodium levelOrdered By: Erasmo monetflash Cl on 10-02-2024 Sodium [Moles/Vol] 137 mmol/L 133-145 [facility] Absolute lymphocyte countOrd ered By: Chau Smallwood on 08-22-2024 Lymphocytes Auto (Unsp spec) [#/Vol] 2.18 10*3/uL 0.83-4.51 [facility] Absolute neutrophil countOrd ered By: Chau Smallwood on 08-22-2024 Neutrophils (Bld) [#/Vol] 3.9 10*3/uL 2.0-7.7 [facility] Anion gap in Serum or Plasma Ordered By: Chau Smallwood on 08-22-2024 Anion gap [Moles/Vol] 11 mmol/L 5-15 [facility] Automated lymphocyte count a s percentage of total leukocytesOrdered By: Chau Smallwood on 08-22-2024 Lymphocytes/100 WBC Auto (Unsp spec) 31.1 % 19-41 [facility] BUN/creatinine ratioOrdered By: Chau Smallwood on 08-22-2024 Urea nitrogen/Creatinine [Mass ratio] 23.3 mg/mg High 10-20 [facility] Basophil percentageOrdered B y: Chau Smallwood on 08-22-2024 Basophils/100 WBC (Bld) 0.6 % 0-1 [facility] Bilirubin, totalOrdered By: Chau Smallwood on 08-22-2024 Bilirubin [Mass/Vol] 0.42 mg/dL 0.00-1.30 [facility] Calculated very low density lipoprotein (VLDL) cholesterol measurementOrdered By: Chau Smallwood on 08-22-2024 Calculated very low density lipoprotein (VLDL) cholesterol measurement 11 mg/dL 5-40 [facility] Carbon dioxide, total [Moles /volume] in Central venous bloodOrdered By: Chau Smallwood on 08-22-2024 CO2 [Moles/Vol] 25.7 mmol/L 21.0-32.0 [facility] Chloride assayOrdered By: Omar Smallwood on 08-22-2024 Chloride [Moles/Vol] 99 mmol/L 98-108 [facility] Eosinophil percentageOrdered By: Chau Smallwood on 08-22-2024 Eosinophils/100 WBC (Bld) 2.0 % 0-5 [facility] Erythrocyte distribution wid th ratioOrdered By: Chau Smallwood on 08-22-2024 Erythrocyte distribution width (RBC) [Ratio] 13.0 % 11.6-14.6 [facility] Erythrocyte distribution wid th standard deviationOrdered By: Chau Smallwood on 08-22-2024 Erythrocyte distribution width (RBC) [Ratio] 43.0 fl 35.1-43.9 [facility] Glomerular filtration rate ( GFR) estimation/1.73 sq m using serum, plasma, or whole bOrdered By: Chau Smallwood on 08-22-2024 GFR/1.73 sq M.predicted among non-blacks MDRD (S/P/Bld) [Vol rate/Area] 52 mL/min/{1.73_m2} Low >60 [facility] Comment on above: mL/min/1.73m2 CKD-EP I Creatinine Equation (2020) Hematocrit Auto (Bld) [Volum e fraction]Ordered By: Chau Smallwood on 08-22-2024 Hematocrit (Bld) [Volume fraction] 41.0 % 40-54 [facility] Hemoglobin A1c percentageOrd ered By: Chau Smallwood on 08-22-2024 HbA1c (Bld) [Mass fraction] 6.5 % High <5.7 [facility] Comment on above: Normal < 5.7 % Predi abetic 5.7 - 6.4 % Diabetic >or= 6.5 % Please note range changes. Hemoglobin measurementOrdere d By: Chau Smallwood on 08-22-2024 Hemoglobin (Bld) [Mass/Vol] 13.7 g/dL 13.0-16.5 [facility] Immature granulocytes/100 WB C Auto (Bld)Ordered By: Chau Smallwood on 08-22-2024 Immature granulocytes/100 WBC (Bld) 0.300 % 0.0-0.9 [facility] Comment on above: IG% - Immature Granu locytes (promyelocytes, myelocytes and metamyelocytes) > 1% indicates that a LEFT SHIFT is Present. LDL calc ser/plasOrdered By: Chau Smallwood on 08-22-2024 Cholesterol in LDL [Mass/Vol] 42 mg/dL [facility] Comment on above: Ixdjjaseyz=698-150 m g/dL & Higher Umok=149 mg/dL or greater Laboratory - Chemistry and C hemistry - challengeOrdered By: Chau Smallwood on 08-22-2024 AST [Catalytic activity/Vol] 20 U/L <38 [facility] MCV (mean corpuscular volume ) determinationOrdered By: Chau Smallwood on 08-22-2024 MCV (RBC) [Entitic vol] 89.9 fL 80-94 [facility] Mean corpuscular hemoglobin (MCH) determinationOrdered By: Erasmoilwacoernie Smallwood on 08-22-2024 MCH (RBC) [Entitic mass] 30.0 pg 27.0-32.0 [facility] Mean corpuscular hemoglobin concentration (MCHC) determinationOrdered By: Chau Smallwood on 08-22-2024 MCHC (RBC) [Mass/Vol] 33.4 g/dL 32-36 [facility] Mean platelet volume determi nationOrdered By: Chau Smallwood on 08-22-2024 Platelet mean volume (Bld) [Entitic vol] 9.7 fL 6.2-12.0 [facility] Monocyte percentageOrdered B y: Chau Smallwood on 08-22-2024 Monocytes/100 WBC (Bld) 10.3 % High 0-10 [facility] Neutrophil percentageOrdered By: efeilwacoernie Smallwood on 08-22-2024 Neutrophils/100 WBC (Bld) 55.7 % 47-70 [facility] Nucleated red blood cell per centageOrdered By: Chau Smallwood on 08-22-2024 Nucleated RBC/100 WBC (Bld) [Ratio] 0 % 0-5 [facility] Platelet countOrdered By: Omar Smallwood on 08-22-2024 Platelets (Bld) [#/Vol] 180 10*3/uL 150-450 [facility] Potassium measurement (mass/ volume)Ordered By: Chau Smallwood on 08-22-2024 Potassium (Unsp spec) [Mass/Vol] 4.5 mmol/L 3.3-5.1 [facility] RBC Auto (Bld) [#/Vol]Ordere d By: Chau Smallwood on 08-22-2024 RBC (Bld) [#/Vol] 4.56 10*6/uL Low 4.6-6.[address] [facility] Screening total cholesterol/ high density lipoprotein (HDL) cholesterol ratioOrdered By: Chau Smallwood on 08-22-2024 Cholesterol.total/Cho lesterol in HDL [Mass ratio] 1.90 {ratio} [facility] Serum creatinine measurement (mass/volume)Ordered By: Chau Smallwood on 08-22-2024 Creatinine [Mass/Vol] 1.35 mg/dL High 0.70-1.20 [facility] Serum globulin measurementOr dered By: Chau Smallwood on 08-22-2024 Globulin (S) [Mass/Vol] 2.5 g/dL 2.2-4.2 [facility] Serum glucose measurement (m ass/volume)Ordered By: Chau Smallwood on 08-22-2024 Glucose [Mass/Vol] 117 mg/dL High 70-99 [facility] Serum or plasma alanine yepez otransferase (ALT) measurementOrdered By: Chau Smallwood on 08-22-2024 ALT [Catalytic activity/Vol] 13 U/L <47 [facility] Serum or plasma albumin lisa urement (mass/volume)Ordered By: Chau Smallwood on 08-22-2024 Albumin [Mass/Vol] 4.2 g/dL 3.4-4.8 [facility] Serum or plasma albumin/glob ulin mass ratioOrdered By: Chau Smallwood on 08-22-2024 Albumin/Globulin [Mass ratio] 1.7 {ratio} 0.9-2.4 [facility] Serum or plasma alkaline donavan sphatase measurementOrdered By: Chau Smallwood 08-22-2024 ALP [Catalytic activity/Vol] 91 U/L 40-129 [facility] Serum or plasma calcium lisa urement (mass/volume)Ordered By: Chau Smallwood on 08-22-2024 Calcium [Mass/Vol] 9.7 mg/dL 7.6-11.0 [facility] Serum or plasma cholesterol in HDL measurement (mass/volume)Ordered By: Chau Smallwood on 08-22-2024 Cholesterol in HDL [Mass/Vol] 59 mg/dL >40 [facility] Comment on above: National Cholesterol Education Program (NCEP) guidelines:<40 mg/dL: Low HDL-cholesterol (major risk factor for CHD)>= 60 mg/dL: High HDL-cholesterol (negative risk factor for CHD)HDL-cholesterol is affected by a number of factors, e.g. smoking, exercise, hormones, sex and age. Serum or plasma cholesterol measurement (mass/volume)Ordered By: Chau Smallwood on 08-22-2024 Cholesterol [Mass/Vol] 112 mg/dL <201 [facility] Comment on above: Cholesterol level, D esirable <200 mg/dLBorderline high cholesterol 200-239 mg/dLHigh cholesterol >=240 mg/dLRecommendations of the NCEP Adult Treatment Panel for the following risk-cutoff thresholds for the [place] population. Serum or plasma urea nitroge n measurement (mass/volume)Ordered By: Chau Smallwood on 08-22-2024 Urea nitrogen [Mass/Vol] 32 mg/dL High 4-19 [facility] Sodium levelOrdered By: Erasmo monetflash Cl on 08-22-2024 Sodium [Moles/Vol] 136 mmol/L 133-145 [facility] Total proteinOrdered By: Sam garimaernie Smallwood on 08-22-2024 Protein [Mass/Vol] 6.7 g/dL 5.9-8.4 [facility] Triglycerides measurementOrd ered By: Chau Smallwood on 08-22-2024 Triglyceride [Mass/Vol] 55 mg/dL <199 [facility] Comment on above: The drugs N-Acetylcy steine and Metamizole may falsely depress this assay. Normal range: <150 mg/dLBorderline High: 150-199 mg/dLHigh: 200-499 mg/dLVery High: >500 mg/dL White blood cell (WBC) count Ordered By: Chau Smallwood on 08-22-2024 WBC (Bld) [#/Vol] 7.0 10*3/uL 4.4-11.0 [facility] CBC (INCLUDES DIFF/PLT)on Basophils (Bld) [#/Vol] 0.049 10*3/uL Normal 0-200 [facility] Comment on above: Performed By: #### 9 27, 6399, 94492, 7600, 65091, 83862 #### [facility] [place] [address] District Engineer: Nash Ames MD Basophils/100 WBC (Bld) 0.6 % Normal [facility] Comment on above: Performed By: #### 9 27, 6399, 49068, 7600, 03777, #### [facility] [place] [address] District Engineer: Nash Ames MD Eosinophils (Bld) [#/Vol] 0.251 10*3/uL Normal 15-500 [facility] Comment on above: Performed By: #### 9 27, 6399, 07215, 7600, 39766, 08746 #### [facility] [place] [address] District Engineer: Nash Ames MD Eosinophils/100 WBC (Bld) 3.1 % Normal [facility] Comment on above: Performed By: #### 9 27, 6399, 94688, 7600, 66860, 13404 #### [facility] [place] [address] District Engineer: Nash Ames MD Erythrocyte distribution width (RBC) [Ratio] 13.0 % Normal 11.0-15.0 [facility] Comment on above: Performed By: #### 9 27, 6399, 72235, 7600, 27416, 48330 #### [facility] of [place] [address] District Engineer: Nash Ames MD Hematocrit (Bld) [Volume fraction] 47.6 % Normal 38.5-50.0 [facility] Comment on above: Performed By: #### 9 27, 6399, 31868, 7600, 92684, #### [facility] of [place] [address] District Engineer: Nash Ames MD Hemoglobin (Bld) [Mass/Vol] 15.3 g/dL Normal 13.2-17.1 [facility] Comment on above: Performed By: #### 9 27, 6399, 20605, 7600, 87721, #### [facility] of [place] [address] District Engineer: Nash Ames MD Lymphocytes (Bld) [#/Vol] 1.855 10*3/uL Normal 850-3900 [facility] Comment on above: Performed By: #### 9 27, 6399, 95109, 7600, 18846, #### [facility] of [place] [address] District Engineer: Nash Ames MD Lymphocytes/100 WBC (Bld) 22.9 % Normal [facility] Comment on above: Performed By: #### 9 27, 6399, 97275, 7600, 48126, #### [facility] of [place] [address] District Engineer: Nash Ames MD MCH (RBC) [Entitic mass] 30.1 pg Normal 27.0-33.0 [facility] Comment on above: Performed By: #### 9 27, 6399, 80895, 7600, 16625, #### [facility] of [place] [address] District Engineer: Nash Ames MD MCHC (RBC) [Mass/Vol] 32.1 g/dL Normal 32.0-36.[address] [facility] Comment on above: Result Comment: For adults, a slight decrease in the calculated MCHC value (in the range of 30 to 32 g/dL) is most likely not clinically significant; however, it should be interpreted with caution in correlation with other red cell parameters and the patient's clinical condition. Performed By: #### 9 27, 6399, 46965, 7600, 18703, #### [facility] [place] [address] District Engineer: Nash Ames MD MCV (RBC) [Entitic vol] 93.5 fL Normal 80.0-100.0 [facility] Comment on above: Performed By: #### 9 27, 6399, 94774, 7600, 04930, #### [facility] [place] [address] District Engineer: Nash Ames MD Monocytes (Bld) [#/Vol] 0.826 10*3/uL Normal 200-950 [facility] Comment on above: Performed By: #### 9 27, 6399, 77570, 7600, 60931, #### [facility] [place] [address] District Engineer: Nash Ames MD Monocytes/100 WBC (Bld) 10.2 % Normal [facility] Comment on above: Performed By: #### 9 27, 6399, 85417, 7600, 44601, #### [facility] of [place] [address] District Engineer: Nash Ames MD Neutrophils (Bld) [#/Vol] 5.119 10*3/uL Normal 7328-1430 [facility] Comment on above: Performed By: #### 9 27, 6399, 67166, 7600, 45623, #### [facility] of [place] [address] District Engineer: Nash Ames MD Neutrophils/100 WBC (Bld) 63.2 % Normal [facility] Comment on above: Performed By: #### 9 27, 6399, 22364, 7600, 85634, #### [facility] [place] [address] District Engineer: Nash Ames MD Platelet mean volume (Bld) [Entitic vol] 9.7 fL Normal 7.5-12.5 [facility] Comment on above: Performed By: #### 9 27, 6399, 18424, 7600, 23641, #### [facility] of [address], [address] [place] [address] District Engineer: Nash Ames MD Platelets (Bld) [#/Vol] 180 10*3/uL Normal 140-400 [facility] Comment on above: Performed By: #### 9 27, 6399, 54135, 7600, 38128, #### [facility] of [place] [address] District Engineer: Nash Ames MD RBC (Bld) [#/Vol] 5.09 10*6/uL Normal 4.20-5.80 [facility] Comment on above: Performed By: #### 9 27, 6399, 79199, 7600, 01978, #### [facility] [place] [address] District Engineer: Nash Ames MD WBC (Bld) [#/Vol] 8.1 10*3/uL Normal 3.8-10.8 [facility] Comment on above: Performed By: #### 9 27, 6399, 28654, 7600, 30661, #### [facility] [place] [address] District Engineer: Nash Ames MD COMPREHENSIVE METABOLIC PANE L W/ANION GAPon 07-16-2024 Albumin [Mass/Vol] 4.5 g/dL Normal 3.6-5.1 [facility] Comment on above: Performed By: #### 9 27, 6399, 43007, 7600, 21599, #### [facility] of [address], [address] [place] [address] District Engineer: Nash Ames MD ALP [Catalytic activity/Vol] 70 U/L Normal 35-144 [facility] Comment on above: Performed By: #### 9 27, 6399, 96009, 7600, 09979, #### [facility] of [address], [address] [place] [address] District Engineer: Nash Ames MD ALT [Catalytic activity/Vol] 14 U/L Normal 9-46 [facility] Comment on above: Performed By: #### 9 27, 6399, 67388, 7600, 45322, #### [facility] of [address], [address] [place] [address] District Engineer: Nash Ames MD AST [Catalytic activity/Vol] 16 U/L Normal 10-35 [facility] Comment on above: Performed By: #### 9 27, 6399, 88644, 7600, 45290, #### [facility] of [place] [address] District Engineer: Nash Ames MD Bilirubin [Mass/Vol] 0.7 mg/dL Normal 0.2-1.2 [facility] Comment on above: Performed By: #### 9 27, 6399, 78335, 7600, 01301, #### [facility] of [address], [address] [place] [address] District Engineer: Nash Ames MD Calcium [Mass/Vol] 9.8 mg/dL Normal 8.6-10.3 [facility] Comment on above: Performed By: #### 9 27, 6399, 51057, 7600, 00833, #### [facility] of [address], [address] [place] [address] District Engineer: Nash Ames MD Chloride [Moles/Vol] 98 mmol/L Normal 98-110 [facility] Comment on above: Performed By: #### 9 27, 6399, 79331, 7600, 82687, #### [facility] [place] [address] District Engineer: Nash Ames MD CO2 [Moles/Vol] 30 mmol/L Normal 20-32 [facility] Comment on above: Performed By: #### 9 27, 6399, 09746, 7600, 71188, #### [facility] of [address], [address] [place] [address] District Engineer: Nash Ames MD Creatinine [Mass/Vol] 1.18 mg/dL Normal 0.70-1.[address] [facility] Comment on above: Performed By: #### 9 27, 6399, 85440, 7600, 18005, #### [facility] of [place] [address] District Engineer: Nash Ames MD ELECTROLYTE BALANCE 8 mmol/L (calc) Normal 7-17 [facility] Comment on above: Performed By: #### 9 27, 6399, 70753, 7600, 71725, #### [facility] [place] [address] District Engineer: Nash Ames MD GFR/1.73 sq M.predicted among non-blacks MDRD (S/P/Bld) [Vol rate/Area] 62 mL/min/{1.73_m2} Normal > OR = 60 [facility] Comment on above: Performed By: #### 9 27, 6399, 02322, 7600, 29974, #### [facility] of [place] [address] District Engineer: Nash Ames MD Glucose [Mass/Vol] 97 mg/dL Normal 65-99 [facility] Comment on above: Result Comment: Fasting reference interval Performed By: #### 9 27, 6399, 07343, 7600, 70065, #### [facility] of [place] [id number] District Engineer: Nash Ames MD Potassium [Moles/Vol] 4.8 mmol/L Normal 3.5-5.[address] [facility] Comment on above: Performed By: #### 9 27, 6399, 88132, 7600, 16106, 75955 #### [facility] of [address], [address] [place] [address] District Engineer: Nash Ames MD Protein [Mass/Vol] 7.1 g/dL Normal 6.1-8.1 [facility] Comment on above: Performed By: #### 9 27, 6399, 93206, 7600, 02140, 77607 #### [facility] [place] [address] District Engineer: Nash Ames MD Sodium [Moles/Vol] 136 mmol/L Normal 135-146 [facility] Comment on above: Performed By: #### 9 27, 63, 85126, 7600, 07018, #### [facility] [place] [address] District Engineer: Nash Ames MD Urea nitrogen [Mass/Vol] 23 mg/dL Normal 7-25 [facility] Comment on above: Performed By: #### 9 27, 6399, 02881, 7600, 34325, 90525 #### [facility] [place] [address] District Engineer: Nash Ames MD HEMOGLOBIN A1c WITH eAGon eAG (mmol/L) 7.4 mmol/L Normal [facility] Comment on above: Performed By: #### 9 27, 6399, 00785, 7600, 65888, 57954 #### [facility] of [place] [address] District Engineer: Nash Ames MD HbA1c (Bld) [Mass [...] children. Performed By: #### 9 27, 6399, 69523, 7600, 86212, 85594 #### [facility] [address], [address] [place] [address] District Engineer: Nash Ames MD Magnesium [Mass/Vol] 134 mg/dL Normal [facility] Comment on above: Performed By: #### 9 27, 6399, 35530, 7600, 82626, #### [facility] [address], [address] [place] [address] District Engineer: Nash Ames MD LIPID PANEL, [place] [address] Cholesterol [Mass/Vol] 126 mg/dL Normal <200 [facility] Comment on above: Order Comment: FASTI NG:YES FASTING: YES Performed By: #### 9 27, 6399, 54771, 7600, 43577, 26227 #### [facility] [address], [address] [place] [address] District Engineer: Nash Ames MD Cholesterol in HDL [Mass/Vol] 62 mg/dL Normal > OR = 40 [facility] Comment on above: Order Comment: FASTI NG:YES FASTING: YES Performed By: #### 9 27, 6399, 09132, 7600, 80236, 75122 #### [facility] [place] [address] District Engineer: Nash Ames MD Cholesterol in LDL [...] equation in the estimation of LDL-C. Timothy PERRY et al. VIRGILIO. 2013;310(19): 5193-1793 (http://education.QPID Health/faq/VRQ106) Performed By: #### 9 27, 6399, 60249, 7600, 09006, 53695 #### [facility] [address], [address] [place] [address] District Engineer: Nash Ames MD Cholesterol.total/Cho lesterol in HDL [Mass ratio] 2.0 {ratio} Normal <5.0 [facility] Comment on above: Order Comment: FASTI NG:YES FASTING: YES Performed By: #### 9 27, 6399, 76967, 7600, 88867, 47253 #### [facility] [address], [address] [place] [address] District Engineer: Nash Ames MD NON HDL CHOLESTEROL 64 mg/dL (calc) Normal <130 [facility] Comment on above: Order Comment: FASTI NG:YES FASTING: YES Result Comment: For patients with diabetes plus 1 major ASCVD risk factor, treating to a non-HDL-C goal of <100 mg/dL (LDL-C of <70 mg/dL) is considered a therapeutic option. Performed By: #### 9 27, 6399, 29762, 7600, 48641, 41462 #### [facility] [place] [address] District Engineer: Nash Ames MD Triglyceride [Mass/Vol] 92 mg/dL Normal <150 [facility] Comment on above: Order Comment: FASTI NG:YES FASTING: YES Performed By: #### 9 27, 6399, 31942, 7600, 55130, 94678 #### [facility] [address], [address] [place] [address] District Engineer: Nash Ames MD PSA, TOTAL, MONITORINGon [...] disease. Performed By: #### 9 27, 6399, 14726, 7600, 28438, 05515 #### [facility] [address], [address] [place] [address] District Engineer: Nash Ames MD TSH W/REFLEX TO FT4on 2024 TSH W/REFLEX TO FT4 1.70 mIU/L Normal 0.40-4.50 [facility] Comment on above: Performed By: #### 9 27, 6399, 43556, 7600, 67580, 58138 #### [facility] [address], [address] [place] [address] District Engineer: Nash Ames MD VITAMIN B12on 07-16-2024 Cobalamin (Vitamin B12) [Mass/Vol] 378 pg/mL Normal 200-1100 [facility] Comment on above: Result Comment: Please [...] symptoms. Performed By: #### 9 27, 6399, 99935, 7600, 83315, 12292 #### [facility] [address], [address] [place] [address] District Engineer: Nash Ames MD CBC panel Auto (Bld)on 01-19 Erythrocyte distribution width (RBC) [Ratio] 13.4 % Normal 11.5-14.5 [facility] Comment on above: Performed By: #### 5 8410-2 #### CECY WONG ([id number]) [facility] ([facility]) [address] [place] [address] Hematocrit (Bld) [Volume fraction] 43.8 % Normal 41.0-52.0 [facility] Comment on above: Performed By: #### 5 8410-2 #### CECY WONG ([id number]) [facility] ([facility]) [address] [place] [address] 28446 Hemoglobin (Bld) [Mass/Vol] 14.1 g/dL Normal 13.5-17.5 [facility] Comment on above: Performed By: #### 5 8410-2 #### CECY WONG ([id number]) [facility] ([facility]) [address] [place] [address] 66275 MCH (RBC) [Entitic mass] 29.7 pg Normal 26.0-34.0 [facility] Comment on above: Performed By: #### 5 8410-2 #### CECY WONG ([id number]) [facility] ([facility]) [address] [place] [address] 24758 MCHC (RBC) [Mass/Vol] 32.2 g/dL Normal 32.0-36.0 [facility] Comment on above: Performed By: #### 5 8410-2 #### CECY WONG ([id number]) [facility] ([facility]) [address] [place] [address] 07532 MCV (RBC) [Entitic vol] 92 fL Normal 80-100 [facility] Comment on above: Performed By: #### 5 8410-2 #### CECY WONG ([id number]) [facility] ([facility]) [address] [place] [address] 34948 Nucleated RBC/100 WBC (Bld) [Ratio] 0.0 /100 WBCs Normal 0.0-0.0 [facility] Comment on above: Performed By: #### 5 8410-2 #### CECY WONG ([id number]) [facility] ([facility]) [address] [place] [address] 73936 Platelets (Bld) [#/Vol] 197 x10*3/uL Normal 150-450 [facility] Comment on above: Performed By: #### 5 8410-2 #### CECY WONG ([id number]) [facility] ([facility]) [address] [place] [address] 57555 RBC (Bld) [#/Vol] 4.74 x10*6/uL Normal 4.50-5.90 [facility] Comment on above: Performed By: #### 5 8410-2 #### CECY WONG ([id number]) [facility] ([facility]) [address] [place] [address] 44163 WBC (Bld) [#/Vol] 8.0 x10*3/uL Normal 4.4-11.[address] [facility] Comment on above: Performed By: #### 5 8410-2 #### CECY WONG ([id number]) [facility] ([facility]) [address] [place] [address] 58152 Cobalaminson 01-20-2024 Cobalamin (Vitamin B12) [Mass/Vol] 257 pg/mL Normal 211-911 [facility] Comment on above: Performed By: #### 2 132-9 #### HOLDEN Larson ([id number]) [facility] ([facility]) [address] [place] [address] Comprehensive metabolic 2000 panelon 01-20-2024 Albumin BCP dye [Mass/Vol] 4.0 g/dL Normal 3.4-5.0 [facility] Comment on above: Performed By: #### 2 4323-8 #### CECY WONG ([id number]) [facility] ([facility]) [address] [place] [address] 61551 ALP [Catalytic activity/Vol] 73 U/L Normal 33-136 [facility] Comment on above: Performed By: #### 2 4323-8 #### CECY WONG ([id number]) [facility] ([facility]) [address] [place] [address] 53154 ALT With P-5'-P [Catalytic activity/Vol] 11 U/L Normal 10-52 [facility] Comment on above: Result Comment: [place] ents treated with Sulfasalazine may generate falsely decreased results for ALT. Performed By: #### 2 4323-8 #### CECY WONG ([id number]) [facility] ([facility]) [address] [place] [address] Anion gap [Moles/Vol] 13 mmol/L Normal 10-20 [facility] Comment on above: Performed By: #### 2 4323-8 #### CECY WONG ([id number]) [facility] ([facility]) [address] [place] [address] AST With P-5'-P [Catalytic activity/Vol] 12 U/L Normal 9-39 [facility] Comment on above: Performed By: #### 2 432-8 #### CECY WONG ([id number]) [facility] ([facility]) [address] [place] [address] Bilirubin [Mass/Vol] 0.6 mg/dL Normal 0.0-1.2 [facility] Comment on above: Performed By: #### 2 4322-8 #### CECY WONG ([id number]) [facility] ([facility]) [address] [place] [address] 5[address] Calcium [Mass/Vol] 9.5 mg/dL Normal 8.6-10.3 [facility] Comment on above: Performed By: #### 2 4323-8 #### CECY WONG ([id number]) [facility] ([facility]) [address] [place] [address] Chloride [Moles/Vol] 99 mmol/L Normal 98-107 [facility] Comment on above: Performed By: #### 2 432-8 #### CECY WONG ([id number]) [facility] ([facility]) [address] [place] [address] CO2 [Moles/Vol] 29 mmol/L Normal 21-32 [facility] Comment on above: Performed By: #### 2 4323-8 #### CECY WONG ([id number]) [facility] ([facility]) [facility] [place] [address] Creatinine [Mass/Vol] 1.46 mg/dL High 0.50-1.30 [facility] Comment on above: Performed By: #### 2 4323-8 #### CECY WONG ([id number]) [facility] ([facility]) [address] [place] [address] 85600 Glomerular filtration rate/1.73 sq M.predicted 48 mL/min/1.73m*2 Low >60 [facility] Comment on above: Result Comment: Calc ulations of estimated GFR are performed using the 2020 CKD-EPI Study Refit equation without the race variable for the IDMS-Traceable creatinine methods. https://jasn.asnjournals.org/content/early//ASN.778601 3075 Performed By: #### 2 4323-8 #### CECY WONG ([id number]) [facility] ([facility]) [address] [place] [address] 35487 Glucose [Mass/Vol] 100 mg/dL High 74-99 [facility] Comment on above: Performed By: #### 2 4323-8 #### CECY WONG ([id number]) [facility] ([facility]) [address] [place] [address] 05456 Potassium [Moles/Vol] 5.0 mmol/L Normal 3.5-5.3 [facility] Comment on above: Performed By: #### 2 4323-8 #### CECY WONG (60253) [facility] ([facility]) [address] [place] [address] 97138 Protein [Mass/Vol] 6.4 g/dL Normal 6.4-8.2 [facility] Comment on above: Performed By: #### 2 4323-8 #### CECY WONG ([id number]) [facility] ([facility]) [address] [place] [address] 96549 Sodium [Moles/Vol] 136 mmol/L Normal 136-145 [facility] Comment on above: Performed By: #### 2 4323-8 #### CECY WONG ([id number]) [facility] ([facility]) [facility] [place] [address] Urea nitrogen [Mass/Vol] 37 mg/dL High 6-23 [facility] Comment on above: Performed By: #### 2 4323-8 #### CECY WONG ([id number]) [facility] ([facility]) [address] [place] [address] 46978 HbA1c (Bld) [Mass fraction]o n 01-20-2024 Average glucose Estimated from glycated hemoglobin (Bld) [Mass/Vol] 131 mg/dL Normal Not Established [facility] Comment on above: Order Comment: Diagn osis of Diabetes-Adults Non-Diabetic: < or = 5.6% Increased risk for developing diabetes: 5.7-6.4% Diagnostic of diabetes: > or = 6.5% Performed By: #### 4 548-4 #### HOLDEN Larson ([id number]) [facility] ([facility]) [address] [place], [place] [id number] Hemoglobin A1c/Hemoglobin.to myles 01-20-2024 HbA1c (Bld) [Mass fraction] 6.2 % High See comment [facility] Comment on above: Order Comment: Diagn osis of Diabetes-Adults Non-Diabetic: < or = 5.6% Increased risk for developing diabetes: 5.7-6.4% Diagnostic of diabetes: > or = 6.5% Performed By: #### 4 548-4 #### HOLDEN Larson ([id number]) [facility] ([facility]) [address] [place] [address] Lipid 1996 panelon 4 Cholesterol [Mass/Vol] 109 mg/dL Normal 0-199 [facility] Comment on above: Result Comment: Age [...] By: #### 2 4331-1 #### CECY WONG ([id number]) [facility] ([facility]) [address] [place] [address] 79754 Cholesterol in HDL [Mass/Vol] 46.0 mg/dL Normal [facility] Comment on above: Result Comment: Age Very Low Low Normal High 0-19 Y < 35 < 40 40-45 ---- 20-24 Y ---- < 40 >45 ---- >24 Y ---- < 40 40-60 >60 Performed By: #### 2 4331-1 #### CECY WONG ([id number]) [facility] ([facility]) [address] [place] [address] 93729 Cholesterol in LDL [Mass/Vol] 42 mg/dL Normal <=99 [facility] Comment on above: Result Comment: Near Borderline AGE Desirable Optimal High High Very High 0-19 Y 0 - 109 --- 110-129 >/= 130 ---- 20-24 Y 0 - 119 --- 120-159 >/= 160 ---- >24 Y 0 - 99 100-129 130-159 160-189 >/=190 Performed By: #### 2 4331-1 #### CECY WONG ([id number]) [facility] ([facility]) [address] [place] [address] 37114 Cholesterol in VLDL [Mass/Vol] 21 mg/dL Normal 0-40 [facility] Comment on above: Performed By: #### 2 4331-1 #### CECY WONG ([id number]) [facility] ([facility]) [address] [place] [address] 21529 CHOLESTEROL/HDL RATIO 2.[address] [facility] Comment on above: Result Comment: Ref Values Desirable < 3.4 High Risk > 5.0 Performed By: #### 2 4331-1 #### CECY WONG ([id number]) [facility] ([facility]) [address] [place] [address] NON HDL CHOLESTEROL 63 mg/dL Normal 0-[address] [facility] Comment on above: Result Comment: Age Desirable Borderline High High Very High 0-19 Y 0 - 119 120 - 144 >/= 145 >/= 160 20-24 Y 0 - 149 150 - 189 >/= 190 ---- >24 Y 30 mg/dL above LDL Cholesterol goal Performed By: #### 2 4331-1 #### CECY WONG ([id number]) [facility] ([facility]) [facility] [place] [address] Triglyceride [Mass/Vol] 106 mg/dL Normal 0-149 [facility] Comment on above: Result Comment: Age [...] By: #### 2 4331-1 #### CECY WONG ([id number]) [facility] ([facility]) [facility] [place] [id number] Prostate specific Agon 01-19 Prostate specific Ag [Mass/Vol] ng/mL Normal <=4.00 [facility] Comment on above: Order Comment: The DA requires that the method used for PSA assay be reported to the physician. Values obtained with different assay methods must not be used interchangeably. This test was performed at [facility] using the Doblet PSA assay is a two-site immunoenzymatic sandwich assay. The assay is approved for measurement of prostate-specific antigen (PSA)in serum and may be used in conjunction with a digital rectal examination in men 50 years and older as an aid in detection of prostate cancer. 4-Zxsjj-wervybjno inhibitors (e.g. Proscar, Finasteride, Avodart, Dutasteride and Yessica) for the treatment of BPH have been shown to lower PSA levels by an average of 50% after 6 months of treatment. Performed By: #### 2 857-1 #### HOLDEN Larson ([id number]) [facility] ([facility]) [id number] [place] [address] Comprehensive metabolic 2000 panelon 07-03-2023 Albumin BCP dye [Mass/Vol] 3.9 g/dL Normal 3.4-5.0 [facility] Comment on above: Performed By: #### 2 4323-8 #### CECY WONG ([id number]) [facility] ([facility]) [address] [place] [address] ALP [Catalytic activity/Vol] 62 U/L Normal 33-136 [facility] Comment on above: Performed By: #### 2 4323-8 #### CECY WONG ([id number]) [facility] ([facility]) [address] [place] [address] ALT With P-5'-P [Catalytic activity/Vol] 11 U/L Normal 10-52 [facility] Comment on above: Result Comment: [place] ents treated with Sulfasalazine may generate falsely decreased results for ALT. Performed By: #### 2 4323-8 #### CECY WONG ([id number]) [facility] ([facility]) [address] [place] [address] Anion gap [Moles/Vol] 12 mmol/L Normal 10-20 [facility] Comment on above: Performed By: #### 2 4323-8 #### CECY WONG ([id number]) [facility] ([facility]) [facility] [place] [address] AST With P-5'-P [Catalytic activity/Vol] 13 U/L Normal 9-39 [facility] Comment on above: Performed By: #### 2 4323-8 #### CECY WONG ([id number]) [facility] ([facility]) [address] [place] [address] Bilirubin [Mass/Vol] 0.5 mg/dL Normal 0.0-1.2 [facility] Comment on above: Performed By: #### 2 4323-8 #### CECY WONG ([id number]) [facility] ([facility]) [address] [place] [address] Calcium [Mass/Vol] 9.6 mg/dL Normal 8.6-10.3 [facility] Comment on above: Performed By: #### 2 4323-8 #### CECY WONG ([id number]) [facility] ([facility]) [address] [place] [address] Chloride [Moles/Vol] 100 mmol/L Normal 98-107 [facility] Comment on above: Performed By: #### 2 4323-8 #### CECY WONG ([id number]) [facility] ([facility]) [address] [place] [address] CO2 [Moles/Vol] 29 mmol/L Normal 21-32 [facility] Comment on above: Performed By: #### 2 4323-8 #### CECY WONG ([id number]) [facility] ([facility]) [facility] [place] [address] Creatinine [Mass/Vol] 1.59 mg/dL High 0.50-1.30 [facility] Comment on above: Performed By: #### 2 4323-8 #### CECY WONG ([id number]) [facility] ([facility]) [address] [place] [address] Glomerular filtration rate/1.73 sq M.predicted 43 mL/min/1.73m*2 Low >60 [facility] Comment on above: Result Comment: Calc ulations of estimated GFR are performed using the 2020 CKD-EPI Study Refit equation without the race variable for the IDMS-Traceable creatinine methods. https://jasn.asnjournals.org/content//ASN.855940 4221 Performed By: #### 2 4323-8 #### CECY WONG ([id number]) [facility] ([facility]) [facility] [place] [address] Glucose [Mass/Vol] 142 mg/dL High 74-99 [facility] Comment on above: Performed By: #### 2 4323-8 #### CECY WONG ([id number]) [facility] ([facility]) [address] [place] [address] Potassium [Moles/Vol] 4.5 mmol/L Normal 3.5-5.3 [facility] Comment on above: Performed By: #### 2 4323-8 #### CECY WONG ([id number]) [facility] ([facility]) [address] [place] [address] Protein [Mass/Vol] 6.2 g/dL Low 6.4-8.2 [facility] Comment on above: Performed By: #### 2 4323-8 #### CECY WONG ([id number]) [facility] ([facility]) [address] [place] [address] Sodium [Moles/Vol] 136 mmol/L Normal 136-145 [facility] Comment on above: Performed By: #### 2 4323-8 #### CECY WONG ([id number]) [facility] ([facility]) [address] [place] [address] Urea nitrogen [Mass/Vol] 32 mg/dL High 6-23 [facility] Comment on above: Performed By: #### 2 4323-8 #### CECY WONG ([id number]) [facility] ([facility]) [address] [place] [address] HbA1c (Bld) [Mass fraction]o n 07-03-2023 Average glucose Estimated from glycated hemoglobin (Bld) [Mass/Vol] 134 mg/dL Normal Not Established [facility] Comment on above: Order Comment: Diagn osis of Diabetes-Adults Non-Diabetic: < or = 5.6% Increased risk for developing diabetes: 5.7-6.4% Diagnostic of diabetes: > or = 6.5% Monitoring of Diabetes Age (y)....................... Therapeutic Goal (%) Adults: >18.........................<7.0 Pediatrics: 13-18...................<7.5 Pediatrics: 7-12....................<8.0 Pediatrics: 0-6..................... 7.5-8.5 [place] [employer]. Diabetes Care 33(S1)Mar 2009 Performed By: #### 4 548-4 #### HOLDEN Larson ([id number]) [facility] ([facility]) [address] [place] [address] Hemoglobin A1c/Hemoglobin.to myles 07-03-2023 HbA1c (Bld) [Mass fraction] 6.3 % High see below [facility] Comment on above: Order Comment: Diagn osis of Diabetes-Adults Non-Diabetic: < or = 5.6% Increased risk for developing diabetes: 5.7-6.4% Diagnostic of diabetes: > or = 6.5% Monitoring of Diabetes Age (y)....................... Therapeutic Goal (%) Adults: >18.........................<7.0 Pediatrics: 13-18...................<7.5 Pediatrics: 7-12....................<8.0 Pediatrics: 0-6..................... 7.5-8.5 [place] [employer]. 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) HTN (hypertension) (401.9) (I10) Medication management (V58.69) (Z79.899) Prostate cancer (185) (C61) Orders HTN (hypertension) Comprehensive Metabolic Panel; Status:Active; Requested for:[id number]; Medication management Follow-up visit in 5 Months Outpatient Follow-up Status: Hold For - Scheduling Requested for: [id number] 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 Having some leaking urine that is better on the medication. 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 Eye: Not injected Respiratory: No respiratory distress. Symmetrical chest wall expans (more content not included)... Normal [place] Tobacco Screening.on 022 Fall risk assessment b) One or more fall s in the last year [facility] Work Phone: Tobacco use status 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 Normal [facility] COMPREHENSIVE PANELon 11-05- 2022 Albumin [Mass/Vol] 4.2 g/dL Normal 3.4 - 5.0 [facility] Comment on above: Performed By: #### C MP #### [address] [address] ALP [Catalytic activity/Vol] 53 U/L Normal 33 - 136 [facility] Comment on above: Performed By: #### C MP #### [address] [address] ALT [Catalytic activity/Vol] 12 U/L Normal 10 - 52 [facility] Comment on above: Result Comment: [place] ents treated with Sulfasalazine may generate falsely decreased results for ALT. Performed By: #### C MP #### [address] [address] Anion gap [Moles/Vol] 13 mmol/L Normal 10 - 20 [facility] Comment on above: Performed By: #### C MP #### [address] [address] AST [Catalytic activity/Vol] 14 U/L Normal 9 - 39 [facility] Comment on above: Performed By: #### C MP #### [address] [address] Bilirubin [Mass/Vol] 0.8 mg/dL Normal 0.0 - 1.2 [facility] Comment on above: Performed By: #### C MP #### [address] [address] Calcium [Mass/Vol] 9.5 mg/dL Normal 8.6 - 10.3 [facility] Comment on above: Performed By: #### C MP #### [address] [address] Chloride [Moles/Vol] 98 mmol/L Normal 98 - 107 [facility] Comment on above: Performed By: #### C MP #### [address] [address] Creatinine [Mass/Vol] 0.91 mg/dL Normal 0.50 - 1.30 [facility] Comment on above: Performed By: #### C MP #### [address] [address] GFR/1.73 sq M.predicted among non-blacks MDRD (S/P/Bld) [Vol rate/Area] 85 mL/min/{1.73_m2} Normal >90 [facility] Comment on above: Result Comment: CALC ULATIONS OF ESTIMATED GFR ARE PERFORMED USING THE 2020 CKD-EPI STUDY REFIT EQUATION WITHOUT THE RACE VARIABLE FOR THE IDMS-TRACEABLE CREATININE METHODS. https://jasn.asnjournals.org/content/early//ASN.609443 1138 Performed By: #### C MP #### [address] [address] Glucose [Mass/Vol] 135 mg/dL High 74 - 99 [facility] Comment on above: Performed By: #### C MP #### [address] [address] HCO3 (Bld) [Moles/Vol] 29 mmol/L Normal 21 - 32 [facility] Comment on above: Performed By: #### C MP #### [address] [address] Potassium [Moles/Vol] 4.5 mmol/L Normal 3.5 - 5.3 [facility] Comment on above: Performed By: #### C MP #### [address] [address] Protein [Mass/Vol] 6.8 g/dL Normal 6.4 - 8.2 [facility] Comment on above: Performed By: #### C MP #### [address] [address] Sodium [Moles/Vol] 135 mmol/L Low 136 - 145 [facility] Comment on above: Performed By: #### C MP #### [address] [address] Urea nitrogen [Mass/Vol] 23 mg/dL Normal 6 - 23 [facility] Comment on above: Performed By: #### C MP #### [place] [address] [place] [address] HEMOGLOBIN A1Con 01-10-2022 Glucose [Mass/Vol] 151 mg/dL Normal [facility] Comment on above: Performed By: #### H BA1E #### [address] [address] HbA1c (Bld) [Mass fraction] 6.9 % Abnormal [facility] Comment on above: Result Comment: Diag nosis of Diabetes-Adults Non-Diabetic: < or = 5.6% Increased risk for developing diabetes: 5.7-6.4% Diagnostic of diabetes: > or = 6.5% . Monitoring of Diabetes Age (y) Therapeutic Goal (%) Adults: >18 <7.0 Pediatrics: 13-18 <7.5 7-12 <8.0 0- 6 7.5-8.5 [place] [employer]. Diabetes Care 33(S1), Mar 2009. Performed By: #### H BA1E #### [address] [address] LIPID PANEL (CORONARY RISK 2 )on 01-10-2022 Cholesterol [Mass/Vol] 105 mg/dL Normal 0 - 199 [facility] Comment on above: Result Comment: . AGE [...] dosing. Performed By: #### L IPID #### [address] [address] Cholesterol in HDL [Mass/Vol] 40.0 mg/dL Normal [facility] Comment on above: Result Comment: . AGE VERY LOW LOW NORMAL HIGH 0-19 Y < 35 < 40 40-45 ---- 20-24 Y ---- < 40 >45 ---- >24 Y ---- < 40 40-60 >60 . Performed By: #### L IPID #### [address] [address] Cholesterol in LDL [Mass/Vol] 41 mg/dL Normal 0 - 99 [facility] Comment on above: Result Comment: . NEAR BORD AGE DESIRABLE OPTIMAL HIGH HIGH VERY HIGH 0-19 Y 0 - 109 --- 110-129 >/= 130 ---- 20-24 Y 0 - 119 --- 120-159 >/= 160 ---- >24 Y 0 - 99 100-129 130-159 160-189 >/=190 . Performed By: #### L IPID #### [address] [address] Cholesterol in VLDL [Mass/Vol] 24 mg/dL Normal 0 - 40 [facility] Comment on above: Performed By: #### L IPID #### [address] [address] Cholesterol.total/Cho lesterol in HDL [Mass ratio] 2.6 {ratio} Normal [facility] Comment on above: Result Comment: REF VALUES DESIRABLE < 3.4 HIGH RISK > 5.0 Performed By: #### L IPID #### [address] [address] Triglyceride [Mass/Vol] 121 mg/dL Normal 0 - 149 [facility] Comment on above: Result Comment: . AGE [...] dosing. Performed By: #### L IPID #### [address] [address] PROSTATE SPECIFIC AGon 01-10 Prostate specific Ag [Mass/Vol] ng/mL Critically low 0.00 - 4.00 [facility] Comment on above: Result Comment: The FDA requires that the method used for PSA assay be reported to the physician. Values obtained with different assay methods must not be used interchangeably. This test was performed at [facility] using the Doblet PSA assay is a two-site immunoenzymatic sandwich assay. The assay is approved for measurement of prostate-specific antigen (PSA)in serum and may be used in conjunction with a digital rectal examination in men 50 years and older as an aid in detection of prostate cancer. 2-Ffevn-oiaobcfpz inhibitors (e.g. Proscar, Finasteride, Avodart, Dutasteride and Yessica) for the treatment of BPH have been shown to lower PSA levels by an average of 50% after 6 months of treatment. Performed By: #### P SA #### [address] [address] TSH WITH REFLEX TO FREE T4 I F ABNORMALon 01-10-2022 TSH Qn 1.29 m[IU]/L Normal 0.44 - 3.98 [facility] Comment on above: Result Comment: TSH testing is performed using different testing methodology at [facility] than at other [facility]. Direct result comparisons should only be made within the same method. Performed By: #### T HYDS #### [address] [address] Absolute lymphocyte counton 12-06-2021 Lymphocytes Auto (Unsp spec) [#/Vol] 2.47 10*3/uL 0.83-4.51 [facility] Work Phone: Basophil percentageon 2021 Basophils/100 WBC (Bld) 0.5 % 0-1 [facility] Work Phone: Chloride [Moles/Vol] 101 mmol/L 98-107 [facility] Work Phone: Eosinophils/100 WBC (Bld) 2.4 % 0-5 [facility] Work Phone: Glucose [Mass/Vol] 128 mg/dL 74-106 [facility] Work Phone: Comment on above: Fasting Glucose resu lt greater than or equal to 126 mg/dL suggests DIABETES MELLITUS per A.D.A. criteria. Neutrophils (Bld) [#/Vol] 3.8 10*3/uL 2.0-7.7 [facility] Work Phone: Neutrophils/100 WBC (Bld) 51.5 % 47-70 [facility] Work Phone: [phone] Potassium [Moles/Vol] 3.8 mmol/L 3.5-5.1 [facility] Work Phone: [phone] Sodium [Moles/Vol] 138 mmol/L 136-145 [facility] Work Phone: [phone] WBC (Bld) [#/Vol] 7.4 10*3/uL 4.4-11.0 [facility] Work Phone: [phone] Blood erythrocytes count (nu mber/volume)on 12-06-2021 RBC (Bld) [#/Vol] 5.30 10*6/uL 4.6-6.[address] [facility] Work Phone: Blood hemoglobin measurement (mass/volume)on 12-06-2021 Hemoglobin (Bld) [Mass/Vol] 15.9 g/dL 13.0-16.5 [facility] Work Phone: Blood lymphocytes/100 leukoc yteson 12-06-2021 Lymphocytes/100 WBC (Bld) 33.3 % 19-41 [facility] Work Phone: Blood monocytes/100 leukocyt eson 12-06-2021 Monocytes/100 WBC (Bld) 12.0 % 0-10 [facility] Work Phone: [phone] Blood platelet mean volumeon 12-06-2021 Platelet mean volume (Bld) [Entitic vol] 9.6 fL 6.2-12.0 [facility] Work Phone: Determination of erythrocyte mean corpuscular volume (MCV)on 10-01-2022 MCV (RBC) [Entitic vol] 89.2 fL 80-94 [facility] Work Phone: [phone] Hematocrit Auto (Bld) [Volum e fraction]on 12-06-2021 Hematocrit (Bld) [Volume fraction] 47.3 % 40-54 [facility] Work Phone: [phone] Laboratory - Chemistry and C hemistry - challengeon 12-06-2021 CO2 [Moles/Vol] 30.0 mmol/L 21.0-32.0 [facility] Work Phone: [phone] Magnesium [Mass/Vol] 1.4 mg/dL 1.6-2.6 [facility] Work Phone: [phone] Urea nitrogen/Creatinine [Mass ratio] 21.6 mg/mg 10-20 [facility] Work Phone: [phone] Laboratory - Hematology and Cell countson 12-06-2021 Erythrocyte distribution width (RBC) [Entitic vol] 42.6 fL 35.1-43.9 [facility] Work Phone: [phone] Erythrocyte distribution width (RBC) [Ratio] 13.1 % 11.6-14.6 [facility] Work Phone: [phone] Immature granulocytes/100 WBC (Bld) 0.300 % 0.0-0.9 [facility] Work Phone: [phone] Comment on above: IG% - Immature Granu locytes (promyelocytes, myelocytes and metamyelocytes) > 1% indicates that a LEFT SHIFT is Present. MCH (RBC) [Entitic mass] 30.0 pg 27.0-32.0 [facility] Work Phone: [phone] Nucleated RBC/100 WBC (Bld) [Ratio] 0 % 0-5 [facility] Work Phone: [phone] MCHC Auto (RBC) [Mass/Vol]on 12-06-2021 MCHC (RBC) [Mass/Vol] 33.6 g/dL 32-36 [facility] Work Phone: [phone] Panel Informationon 12-06 Estimated Creatinine Clearance Calc 55.72 ml/min [facility] Work Phone: Estimated GFR (MDRD) Amer 82 mL/min >60 [facility] Work Phone: Comment on above: GFR Calc Estimated GFR (MDRD) Non-Af Amer 68 mL/min >60 [facility] Work Phone: Comment on above: Non- GFR Calc Troponin I High Sensitivity 6 pg/mL 3.0-78.0 [facility] Work Phone: Comment on above: Please Note: [place] t Units and Gender Specific Reference Ranges. For more information see Policy Stat Procedure [place] High Sensitivity Troponin (TNIH) and attachments. Platelets bldon 12-06-2021 Platelets (Bld) [#/Vol] 198 10*3/uL 150-450 [facility] Work Phone: Serum or plasma calcium lisa urement (mass/volume)on 12-06-2021 Calcium [Mass/Vol] 9.3 mg/dL 8.5-10.1 [facility] Work Phone: Serum or plasma creatinine m easurement (mass/volume)on 12-06-2021 Creatinine [Mass/Vol] 1.11 mg/dL 0.70-1.30 [facility] Work Phone: Comment on above: The validity of the calculated GFR & GFRAA in patients over 70 years has not been determined. Clinical correlation is essential. 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 Normal kwiry BASIC METABOLIC PANELon 04-3 Anion gap [Moles/Vol] 13 mmol/L Normal 10 - 20 [facility] Comment on above: Performed By: #### B MP #### [address] [address] Calcium [Mass/Vol] 9.4 mg/dL Normal 8.6 - 10.3 [facility] Comment on above: Performed By: #### B MP #### [address] [address] Chloride [Moles/Vol] 98 mmol/L Normal 98 - 107 [facility] Comment on above: Performed By: #### B MP #### [address] [address] Creatinine [Mass/Vol] 1.07 mg/dL Normal 0.50 - 1.30 [facility] Comment on above: Performed By: #### B MP #### [address] [address] GFR/1.73 sq M.predicted among non-blacks MDRD (S/P/Bld) [Vol rate/Area] 70 mL/min/{1.73_m2} Normal >90 [facility] Comment on above: Result Comment: CALC ULATIONS OF ESTIMATED GFR ARE PERFORMED USING THE 2020 CKD-EPI STUDY REFIT EQUATION WITHOUT THE RACE VARIABLE FOR THE IDMS-TRACEABLE CREATININE METHODS. https://jasn.asnjournals.org/content/early//ASN.490516 9747 Performed By: #### B MP #### [address] [address] Glucose [Mass/Vol] 143 mg/dL High 74 - 99 [facility] Comment on above: Performed By: #### B MP #### [address] [address] HCO3 (Bld) [Moles/Vol] 29 mmol/L Normal 21 - 32 [facility] Comment on above: Performed By: #### B MP #### [address] [address] Potassium [Moles/Vol] 4.7 mmol/L Normal 3.5 - 5.3 [facility] Comment on above: Performed By: #### B MP #### [address] [address] Sodium [Moles/Vol] 135 mmol/L Low 136 - 145 [facility] Comment on above: Performed By: #### B MP #### [address] [address] Urea nitrogen [Mass/Vol] 25 mg/dL High 6 - 23 [facility] Comment on above: Performed By: #### B MP #### [address] [address] HEMOGLOBIN A1Con 07-05-2021 Glucose [Mass/Vol] 157 mg/dL Normal [facility] Comment on above: Performed By: #### H BA1E #### [address] [address] HbA1c (Bld) [Mass fraction] 7.1 % Abnormal [facility] Comment on above: Result Comment: Diag nosis of Diabetes-Adults Non-Diabetic: < or = 5.6% Increased risk for developing diabetes: 5.7-6.4% Diagnostic of diabetes: > or = 6.5% . Monitoring of Diabetes Age (y) Therapeutic Goal (%) Adults: >18 <7.0 Pediatrics: 13-18 <7.5 7-12 <8.0 0- 6 7.5-8.5 [place] [employer]. Diabetes Care 33(S1), Mar 2009. Performed By: #### H BA1E #### [id number] [place] [address] Hemoglobin A1Con 07-05-2021 Glucose [Mass/Vol] 157 mg/dL [facility] Work Phone: [phone] HbA1c (Bld) [Mass fraction] 7.1 % Abnormal [facility] Work Phone: Comment on above: Diagnosis of Diabete s-Adults Non-Diabetic: < or = 5.6% Increased risk for developing diabetes: 5.7-6.4% Diagnostic of diabetes: > or = 6.5%. Monitoring of Diabetes Age (y) Therapeutic Goal (%) Adults: >18 <7.0 Pediatrics: 13-18 <7.5 7-12 <8.0 0- 6 7.5-8.5 [place] [employer]. Diabetes Care 33(S1), Mar 2009. Laboratory - Chemistry and C hemistry - challengeon 07-05-2021 Anion gap [Moles/Vol] 13 mmol/L 10 - 20 [facility] Work Phone: [phone] Calcium [Mass/Vol] 9.4 mg/dL 8.6 - 10.3 [facility] Work Phone: [phone] Chloride [Moles/Vol] 98 mmol/L 98 - 107 [facility] Work Phone: [phone] CO2 [Moles/Vol] 29 mmol/L 21 - 32 [facility] Work Phone: Creatinine [Mass/Vol] 1.07 mg/dL See Below [facility] Work Phone: Comment on above: Reference Range: 0.5 0 - 1.30 Glucose [Mass/Vol] 143 mg/dL above high threshold 74 - 99 [facility] Work Phone: Potassium [Moles/Vol] 4.7 mmol/L 3.5 - 5.3 [facility] Work Phone: Sodium [Moles/Vol] 135 mmol/L below low threshold 136 - 145 [facility] Work Phone: Urea nitrogen [Mass/Vol] 25 mg/dL above high threshold 6 - 23 [facility] Work Phone: No Panel Informationon 07-05 70 {mL/min/1.73m2} >90 [facility] Work Phone: Comment on above: CALCULATIONS OF JORGE MATED GFR ARE PERFORMED USING THE 2020 CKD-EPI STUDY REFIT EQUATION WITHOUT THE RACE VARIABLE FOR THE IDMS-TRACEABLE CREATININE METHODS.https://jasn.asnjournals.org/content/early/ N.0895420273 VITAMIN B12on 07-05-2021 Cobalamin (Vitamin B12) [Mass/Vol] 278 pg/mL Normal 211 - 911 [facility] Comment on above: Performed By: #### V TB12 #### [address] [address] Vitamin B12, Serumon 022 Cobalamin (Vitamin B12) [Mass/Vol] 278 pg/mL 211 - 911 [facility] Work Phone: Tobacco Screening.on 021 Fall risk assessment a) No falls within the last year [facility] Work Phone: Tobacco use status CPHS b) No [facility] Work Phone: Hemoglobin A1Con 12-28-2020 Glucose [Mass/Vol] 160 mg/dL [facility] Work Phone: HbA1c (Bld) [Mass fraction] 7.2 % Abnormal [facility] Work Phone: Comment on above: Diagnosis of Diabete s-Adults Non-Diabetic: < or = 5.6% Increased risk for developing diabetes: 5.7-6.4% Diagnostic of diabetes: > or = 6.5%. Monitoring of Diabetes Age (y) Therapeutic Goal (%) Adults: >18 <7.0 Pediatrics: 13-18 <7.5 7-12 <8.0 0- 6 7.5-8.5 [place] [employer]. Diabetes Care 33(S1), Mar 2009. Laboratory - Chemistry and C hemistry - challengeon 12-28-2020 Albumin BCP dye [Mass/Vol] 4.2 g/dL 3.4 - 5.0 [facility] Work Phone: ALP [Catalytic activity/Vol] 52 U/L 33 - 136 [facility] Work Phone: ALT With P-5'-P [Catalytic activity/Vol] 18 U/L 10 - 52 [facility] Work Phone: Comment on above: Patients treated wit h Sulfasalazine may generate falsely decreased results for ALT. Anion gap [Moles/Vol] 12 mmol/L 10 - 20 [facility] Work Phone: [phone] AST With P-5'-P [Catalytic activity/Vol] 17 U/L 9 - 39 [facility] Work Phone: Bilirubin [Mass/Vol] 0.6 mg/dL 0.0 - 1.2 [facility] Work Phone: Calcium [Mass/Vol] 9.7 mg/dL 8.6 - 10.3 [facility] Work Phone: Chloride [Moles/Vol] 100 mmol/L 98 - 107 [facility] Work Phone: CO2 [Moles/Vol] 29 mmol/L 21 - 32 [facility] Work Phone: Creatinine [Mass/Vol] 0.94 mg/dL See Below [facility] Work Phone: Comment on above: Reference Range: 0.5 0 - 1.30 Glucose [Mass/Vol] 155 mg/dL above high threshold 74 - 99 [facility] Work Phone: [phone] Potassium [Moles/Vol] 4.0 mmol/L 3.5 - 5.3 [facility] Work Phone: [phone] Protein [Mass/Vol] 6.9 g/dL 6.4 - 8.2 [facility] Work Phone: [phone] Sodium [Moles/Vol] 137 mmol/L 136 - 145 [facility] Work Phone: [phone] Urea nitrogen [Mass/Vol] 18 mg/dL 6 - 23 [facility] Work Phone: [phone] Laboratory - Hematology and Cell countson 12-28-2020 Erythrocyte distribution width (RBC) [Ratio] 14.4 % See Below [facility] Work Phone: [phone] Comment on above: Reference Range: 11. 5 - 14.5 Hematocrit (Bld) [Volume fraction] 45.8 % See Below [facility] Work Phone: [phone] Comment on above: Reference Range: 41. 0 - 52.0 Hemoglobin (Bld) [Mass/Vol] 15.2 g/dL See Below [facility] Work Phone: [phone] Comment on above: Reference Range: 13. 5 - 17.5 MCHC (RBC) [Mass/Vol] 33.3 g/dL See Below [facility] Work Phone: [phone] Comment on above: Reference Range: 32. 0 - 36.0 MCV (RBC) [Entitic vol] 89 fL 80 - 100 [facility] Work Phone: [phone] Platelets (Bld) [#/Vol] 192 10*3/uL 150 - 450 [facility] Work Phone: [phone] RBC (Bld) [#/Vol] 5.12 {x10E12/L} See Below [facility] Work Phone: [phone] Comment on above: Reference Range: 4.5 0 - 5.90 WBC (Bld) [#/Vol] 5.1 10*3/uL 4.4 - 11.3 [facility] Work Phone: Lipid Panelon 12-28-2020 Cholesterol [Mass/Vol] 106 mg/dL 0 - 199 [facility] Work Phone: Comment on above: [...] Cholesterol in HDL [Mass/Vol] 38.0 mg/dL Abnormal [facility] Work Phone: Comment on above: . AGE VERY LOW LOW N ORMAL HIGH 0-19 Y < 35 < 40 40-45 ---- 20- 24 Y ---- < 40 >45 ---- >24 Y ---- < 40 40-60 >60. Cholesterol in LDL [Mass/Vol] 51 mg/dL 0 - 99 [facility] Work Phone: Comment on above: . NEAR BORD AGE ALISHA RABLE OPTIMAL HIGH HIGH VERY HIGH 0-19 Y 0 - 109 --- 110-129 >/= 130 ---- 20-24 Y 0 - 119 --- 120-159 >/= 160 ---- >24 Y 0 - 99 100-129 130-159 160-189 >/=190. Cholesterol.total/Cho lesterol in HDL [Mass ratio] 2.8 {ratio} [facility] Work Phone: Comment on above: REF VALUESDESIRABLE < 3.4HIGH RISK > 5.0 Triglyceride [Mass/Vol] 85 mg/dL 0 - 149 [facility] Work Phone: Comment on above: [...] Lipid Panel 17 mg/dL 0 - 40 [facility] Work Phone: No Panel Informationon 12-28 >60 >60 [facility] Work Phone: Comment on above: CALCULATIONS OF JORGE MATED GFR ARE PERFORMED USING THE MDRD STUDY EQUATION FOR THE IDMS-TRACEABLE CREATININE METHODS. CLIN CHEM 2007;53:766-72 Prostate Specific Antigenon 12-28-2020 Prostate specific Ag [Mass/Vol] ng/mL See Below [facility] Work Phone: Comment on above: Reference Range: 0.0 0 - 4.00The FDA requires that the method used for PSA assay be reported to the physician. Values obtained with different assay methods must not be used interchangeably. This testwas performed at [facility] using the Access 2DOLife.combritech PSA assay is a two-site immunoenzymatic sandwich assay. The assay is approved for measurement of prostate-specific antigen (PSA)in serum and may be used in conjunction with a digital rectal examination in men 50 years and older as an aid in detection of prostate cancer.4-Xbmzg-eelnvqzoa inhibitors (e.g. Proscar, Finasteride, Avodart, Dutasteride and Yessica) for the treatment of BPH have been shown to lower PSA levels by an average of 50% after 6 months of treatment. Vitamin B12, Serumon 021 Cobalamin (Vitamin B12) [Mass/Vol] 291 pg/mL 211 - 911 [facility] Work Phone: MRI Brain w/wo Contraston MR Brain WO and W contrast IV Interpreted by: NEYDA PANCHAL06/18/20 15:43MRN: [id number] Name: ALL YOUNG STUDY:MRI BRAIN W/WO CONTRAST; 06/18/2020 2:58 pm INDICATION:Memory loss NO TO MRI QUESTION. COMPARISON:None. ORDERING CLINICIAN:LEN DUQUE TECHNIQUE:Axial T2, FLAIR, DWI, gradient echo T2 and sagittal and coronal [id number] images of brain were acquired. Contrast was [...] signed by: NEYDA PANCHAL 06/18/20 15:43 Normal [facility] Work Phone: Comment on above: ORDER REVISED TO A N R MRI BRAIN W/WO CONTRAST BY RADIOLOGIST; Original Order Number: [id number] NR MRI BRAIN W/WO CONTRASTon 06-18-2020 NR MRI BRAIN W/WO CONTRAST Patient Name: ALL YOUNG STUDY: MRI BRAIN W/WO CONTRAST; 06/18/2020 2:58 pm INDICATION: Memory loss NO TO MRI QUESTION. COMPARISON: None. ACCESSION NUMBER(S): [id number] ORDERING CLINICIAN: LEN DUQUE TECHNIQUE: Axial T2, FLAIR, DWI, gradient [...] Electronically signed by: NEYDA PANCHAL MD Normal [facility] BASIC METABOLIC PANELon - Anion gap [Moles/Vol] 14 mmol/L Normal 10 - 20 [facility] Comment on above: Performed By: #### B MP #### [address] [address] Calcium [Mass/Vol] 9.3 mg/dL Normal 8.6 - 10.3 [facility] Comment on above: Performed By: #### B MP #### [address] [address] Chloride [Moles/Vol] 98 mmol/L Normal 98 - 107 [facility] Comment on above: Performed By: #### B MP #### [address] [address] Creatinine [Mass/Vol] 0.99 mg/dL Normal 0.50 - 1.30 [facility] Comment on above: Performed By: #### B MP #### [address] [address] GFR- AM. >60 Normal >60 [facility] Comment on above: Result Comment: CALC ULATIONS OF ESTIMATED GFR ARE PERFORMED USING THE MDRD STUDY EQUATION FOR THE IDMS-TRACEABLE CREATININE METHODS. CLIN CHEM 2007;53:766-72 Performed By: #### B MP #### [address] [address] GFR-NON AM. >60 Normal >60 [facility] Comment on above: Performed By: #### B MP #### [address] [address] Glucose [Mass/Vol] 161 mg/dL High 74 - 99 [facility] Comment on above: Performed By: #### B MP #### [address] [address] HCO3 (Bld) [Moles/Vol] 25 mmol/L Normal 21 - 32 [facility] Comment on above: Performed By: #### B MP #### [address] [address] Potassium [Moles/Vol] 4.2 mmol/L Normal 3.5 - 5.3 [facility] Comment on above: Performed By: #### B MP #### [address] [address] Sodium [Moles/Vol] 133 mmol/L Low 136 - 145 [facility] Comment on above: Performed By: #### B MP #### [address] [address] Urea nitrogen [Mass/Vol] 21 mg/dL Normal 6 - 23 [facility] Comment on above: Performed By: #### B MP #### [address] [address] HEMOGLOBIN A1Con 05-29-2020 Glucose [Mass/Vol] 186 mg/dL Normal [facility] Comment on above: Performed By: #### H BA1E #### [address] [address] HbA1c (Bld) [Mass fraction] 8.1 % Normal [facility] Comment on above: Result Comment: Diag nosis of Diabetes-Adults Non-Diabetic: < or = 5.6% Increased risk for developing diabetes: 5.7-6.4% Diagnostic of diabetes: > or = 6.5% . Monitoring of Diabetes Age (y) Therapeutic Goal (%) Adults: >18 <7.0 Pediatrics: 13-18 <7.5 7-12 <8.0 0- 6 7.5-8.5 [place] [employer]. Diabetes Care 33(S1), Mar 2009. Performed By: #### H BA1E #### [address] [address] Hemoglobin A1Con 05-29-2020 HbA1c (Bld) [Mass fraction] 8.1 % [facility] Work Phone: Comment on above: Diagnosis of Diabete s-Adults Non-Diabetic: < or = 5.6% Increased risk for developing diabetes: 5.7-6.4% Diagnostic of diabetes: > or = 6.5%. Monitoring of Diabetes Age (y) Therapeutic Goal (%) Adults: >18 <7.0 Pediatrics: 13-18 <7.5 7-12 <8.0 0- 6 7.5-8.5 [place] [employer]. Diabetes Care 33(S1), Mar 2009. HbA1c (Bld) [Mass fraction] 186 {MG/DL} [facility] Work Phone: Metabolic Panelon 05-29-2020 Anion gap [Moles/Vol] 14 mmol/L 10 - 20 [facility] Work Phone: Calcium [Mass/Vol] 9.3 mg/dL 8.6 - 10.3 [facility] Work Phone: Chloride [Moles/Vol] 98 mmol/L 98 - 107 [facility] Work Phone: CO2 [Moles/Vol] 25 mmol/L 21 - 32 [facility] Work Phone: Creatinine [Mass/Vol] 0.99 mg/dL See Below [facility] Work Phone: Comment on above: Reference Range: 0.5 0 - 1.30 Glucose [Mass/Vol] 161 mg/dL above high threshold 74 - 99 [facility] Work Phone: Potassium [Moles/Vol] 4.2 mmol/L 3.5 - 5.3 [facility] Work Phone: Sodium [Moles/Vol] 133 mmol/L below low threshold 136 - 145 [facility] Work Phone: Urea nitrogen [Mass/Vol] 21 mg/dL 6 - 23 [facility] Work Phone: Otheron 05-29-2020 >60 >60 [facility] Work Phone: Comment on above: CALCULATIONS OF JORGE MATED GFR ARE PERFORMED USING THE MDRD STUDY EQUATION FOR THE IDMS-TRACEABLE CREATININE METHODS. CLIN CHEM 2007;53:766-72 2 1 [facility] Work Phone: Comment on above: [...] - referral no t necessary at present [facility] Work Phone: TSH WITH REFLEX TO FREE T4 I F ABNORMALon 05-29-2020 TSH Qn 1.41 m[IU]/L Normal 0.44 - 3.98 [facility] Comment on above: Result Comment: TSH testing is performed using different testing methodology at [facility] than at other [facility]. Direct result comparisons should only be made within the same method. Performed By: #### T HYDS #### [place] [address] Thyroidon 05-29-2020 TSH Qn 1.41 {mIU/L} See Below [facility] Work Phone: Comment on above: Reference Range: 0.4 4 - 3.98 TSH testing is performed using different testing methodology at [facility] than at other [facility]. Direct result comparisons should only be made within the same method. ALBUMIN, URINE SPOTon 2019 ALBUMIN,URINE 12.0 mg/L Normal Not Established [facility] Comment on above: Performed By: #### A LBSP #### [address] [address] ALBUMIN/CREAT RATIO 12.4 ug/mg urban forester Normal 0.0 - 30.0 [facility] Comment on above: Performed By: #### A LBSP #### [address] [address] CREATININE,URINE 97.0 mg/dL Normal 20.0 - 370.0 [facility] Comment on above: Performed By: #### A LBSP #### [address] [address] COMPREHENSIVE PANELon 2019 Albumin [Mass/Vol] 4.3 g/dL Normal 3.4 - 5.0 [facility] Comment on above: Performed By: #### C MP #### [address] [address] ALP [Catalytic activity/Vol] 57 U/L Normal 33 - 136 [facility] Comment on above: Performed By: #### C MP #### [address] [address] ALT [Catalytic activity/Vol] 18 U/L Normal 10 - 52 [facility] Comment on above: Result Comment: [place] ents treated with Sulfasalazine may generate falsely decreased results for ALT. Performed By: #### C MP #### [address] [address] Anion gap [Moles/Vol] 11 mmol/L Normal 10 - 20 [facility] Comment on above: Performed By: #### C MP #### [address] [address] AST [Catalytic activity/Vol] 15 U/L Normal 9 - 39 [facility] Comment on above: Performed By: #### C MP #### [address] [address] Bilirubin [Mass/Vol] 0.4 mg/dL Normal 0.0 - 1.2 [facility] Comment on above: Performed By: #### C MP #### [address] [address] Calcium [Mass/Vol] 9.3 mg/dL Normal 8.6 - 10.3 [facility] Comment on above: Performed By: #### C MP #### [address] [address] Chloride [Moles/Vol] 97 mmol/L Low 98 - 107 [facility] Comment on above: Performed By: #### C MP #### [address] [address] Creatinine [Mass/Vol] 0.95 mg/dL Normal 0.50 - 1.30 [facility] Comment on above: Performed By: #### C MP #### [address] [address] GFR- AM. >60 Normal >60 [facility] Comment on above: Result Comment: CALC ULATIONS OF ESTIMATED GFR ARE PERFORMED USING THE MDRD STUDY EQUATION FOR THE IDMS-TRACEABLE CREATININE METHODS. CLIN CHEM 2007;53:766-72 Performed By: #### C MP #### [address] [address] GFR-NON AM. >60 Normal >60 [facility] Comment on above: Performed By: #### C MP #### [address] [address] Glucose [Mass/Vol] 150 mg/dL High 74 - 99 [facility] Comment on above: Performed By: #### C MP #### [address] [address] HCO3 (Bld) [Moles/Vol] 30 mmol/L Normal 21 - 32 [facility] Comment on above: Performed By: #### C MP #### [address] [address] Potassium [Moles/Vol] 4.3 mmol/L Normal 3.5 - 5.3 [facility] Comment on above: Performed By: #### C MP #### [address] [address] Protein [Mass/Vol] 6.9 g/dL Normal 6.4 - 8.2 [facility] Comment on above: Performed By: #### C MP #### [address] [address] Sodium [Moles/Vol] 134 mmol/L Low 136 - 145 [facility] Comment on above: Performed By: #### C MP #### [address] [address] Urea nitrogen [Mass/Vol] 22 mg/dL Normal 6 - 23 [facility] Comment on above: Performed By: #### C MP #### [address] [address] HEMOGLOBIN A1Con 01-06-2020 Glucose [Mass/Vol] 183 mg/dL Normal [facility] Comment on above: Performed By: #### H BA1E #### [address] [address] HbA1c (Bld) [Mass fraction] 8.0 % Normal [facility] Comment on above: Result Comment: Diag nosis of Diabetes-Adults Non-Diabetic: < or = 5.6% Increased risk for developing diabetes: 5.7-6.4% Diagnostic of diabetes: > or = 6.5% . Monitoring of Diabetes Age (y) Therapeutic Goal (%) Adults: >18 <7.0 Pediatrics: 13-18 <7.5 7-12 <8.0 0- 6 7.5-8.5 [place] [employer]. Diabetes Care 33(S1), Mar 2009. Performed By: #### H BA1E #### [address] [address] LIPID PANEL (CORONARY RISK 2 )on 01-06-2020 Cholesterol [Mass/Vol] 96 mg/dL Normal 0 - 199 [facility] Comment on above: Result Comment: . [...] dosing. Performed By: #### L IPID #### [address] [address] Cholesterol in HDL [Mass/Vol] 34.0 mg/dL Abnormal [facility] Comment on above: Result Comment: . AGE VERY LOW LOW NORMAL HIGH 0-19 Y < 35 < 40 40-45 ---- 20-24 Y ---- < 40 >45 ---- >24 Y ---- < 40 40-60 >60 . Performed By: #### L IPID #### [address] [address] Cholesterol in LDL [Mass/Vol] 30 mg/dL Normal 0 - 99 [facility] Comment on above: Result Comment: . NEAR BORD AGE DESIRABLE OPTIMAL HIGH HIGH VERY HIGH 0-19 Y 0 - 109 --- 110-129 >/= 130 ---- 20-24 Y 0 - 119 --- 120-159 >/= 160 ---- >24 Y 0 - 99 100-129 130-159 160-189 >/=190 . Performed By: #### L IPID #### [address] [address] Cholesterol in VLDL [Mass/Vol] 32 mg/dL Normal 0 - 40 [facility] Comment on above: Performed By: #### L IPID #### [address] [address] Cholesterol.total/Cho lesterol in HDL [Mass ratio] 2.8 {ratio} Normal [facility] Comment on above: Result Comment: REF VALUES DESIRABLE < 3.4 HIGH RISK > 5.0 Performed By: #### L IPID #### [address] [address] Triglyceride [Mass/Vol] 162 mg/dL High 0 - 149 [facility] Comment on above: Result Comment: . [...] dosing. Performed By: #### L IPID #### [address] [address] PROSTATE SPECIFIC AGon 01-05 Prostate specific Ag [Mass/Vol] ng/mL Normal 0.00 - 4.00 [facility] Comment on above: Result Comment: The FDA requires that the method used for PSA assay be reported to the physician. Values obtained with different assay methods must not be used interchangeably. This test was performed at [facility] using the Doblet PSA assay is a two-site immunoenzymatic sandwich assay. The assay is approved for measurement of prostate-specific antigen (PSA)in serum and may be used in conjunction with a digital rectal examination in men 50 years and older as an aid in detection of prostate cancer. 1-Blgsj-lfcefkaze inhibitors (e.g. Proscar, Finasteride, Avodart, Dutasteride and Yessica) for the treatment of BPH have been shown to lower PSA levels by an average of 50% after 6 months of treatment. Performed By: #### P SA #### [place] [address] VITAMIN B12on 01-06-2020 Cobalamin (Vitamin B12) [Mass/Vol] 323 pg/mL Normal 211 - 911 [facility] Comment on above: Performed By: #### V TB12 #### [place] [address] BMPon 07-02-2018 Anion gap molar conc 11 mmol/L Normal 10-20 [facility] Comment on above: Performed By: #### 2 [id number] #### [employer] [address] [address] Calcium mass conc 9.6 mg/dL Normal 8.6-10.3 [facility] Comment on above: Performed By: #### 2 [id number] #### [employer] [employer] [address] [place] [address] Chloride molar conc 100 mmol/L Normal 98-107 [facility] Comment on above: Performed By: #### 2 [id number] #### [employer] [employer] [address] [place] [address] CO2 molar conc 29.0 mmol/L Normal 21.0-32.0 [facility] Comment on above: Performed By: #### 2 [id number] #### [employer] [employer] [address] [place] [address] Creatinine mass conc 1.0 mg/dL Normal 0.5-1.3 [facility] Comment on above: Performed By: #### 2 [id number] #### [facility] [employer] [address] [place] [address] Glucose mass conc 186 mg/dL High 70-99 [facility] Comment on above: Performed By: #### 2 [id number] #### [facility] [employer] [address] [place] [address] Potassium molar conc 4.6 mmol/L Normal 3.5-5.3 [facility] Comment on above: Performed By: #### 2 [id number] #### [facility] [employer] [address] [place] [address] Sodium molar conc 135 mmol/L Low 136-145 [facility] Comment on above: Performed By: #### 2 [id number] #### [facility] [employer] [address] [place] [address] Urea nitrogen mass conc 20 mg/dL Normal 6-23 [facility] Comment on above: Performed By: #### 2 [id number] #### [facility] [employer] [address] [place] [address] Urea nitrogen/Creatinine mass ratio 20.0 ratio Normal 5.4-30.0 [facility] Comment on above: Performed By: #### 2 [id number] #### [facility] [employer] [address] [place] [address] [id number] 07-02-2018 Hemoglobin A1c/Hemoglobin.total mass fraction (Bld) 8.3 % High 4.0-6.3 [facility] Comment on above: Performed By: #### 3 [id number] #### [facility] Chemistry Manual Subsection [address] [place] [address] Microalb/Creat Ratioon 07-02 Creatinine mass conc 158.0 mg/dL Normal 20.0-300.0 [facility] Comment on above: Performed By: #### 1 [id number] #### [facility] [employer] [address] [place] [address] Creatinine mass conc 11 ug/mg Normal 0-30 [facility] Comment on above: Performed By: #### 1 [id number] #### [facility] [employer] [address] [place] [address] Ur Microalbumin 1.7 mg/dL Normal 0.0-1.9 [facility] Comment on above: Performed By: #### 1 [id number] #### [facility] [employer] [address] [place] [address] eGFRon 07-02-2018 GFR/1.73 sq M predicted among non-blacks MDRD vol rate/area (S/P/Bld) mL/min/{1.73_m2} Normal [facility] Comment on above: Order Comment: Order added by Discern Expert. Performed By: #### 1 [id number] #### [facility] [employer] [address] [place] [address] BMPon 01-08-2018 Anion gap molar conc 12 mmol/L Normal 10-20 [facility] Comment on above: Performed By: #### 2 [id number] #### [employer] [employer] [address] [place] [address] Calcium mass conc 9.7 mg/dL Normal 8.6-10.3 [facility] Comment on above: Performed By: #### 2 [id number] #### [facility] [employer] [address] [place] [address] Chloride molar conc 96 mmol/L Low 98-107 [facility] Comment on above: Performed By: #### 2 [id number] #### [facility] [employer] [address] [place] [address] CO2 molar conc 29.0 mmol/L Normal 21.0-32.0 [facility] Comment on above: Performed By: #### [id number] #### [facility] [address] [place] [address] Creatinine mass conc 1.0 mg/dL Normal 0.6-1.3 [facility] Comment on above: Performed By: #### [id number] #### [facility] [address] [place] [address] Glucose mass conc 160 mg/dL High 70-99 [facility] Comment on above: Performed By: #### [id number] #### [facility] [address] [place] [address] Potassium molar conc 4.4 mmol/L Normal 3.5-5.3 [facility] Comment on above: Performed By: #### [id number] #### [facility] [address] [place] [address] Sodium molar conc 133 mmol/L Low 136-145 [facility] Comment on above: Performed By: #### 2 [id number] #### [facility] [address] [place] [address] Urea nitrogen mass conc 24 mg/dL High 6-23 [facility] Comment on above: Performed By: #### 2 [id number] #### [facility] [address] [place] [address] Urea nitrogen/Creatinine mass ratio 24.0 ratio Normal 5.4-30.0 [facility] Comment on above: Performed By: #### [id number] #### [facility] [address] [place] [address] [id number] 01-08-2018 Hemoglobin A1c/Hemoglobin.total mass fraction (Bld) 8.3 % High 4.0-6.3 [facility] Comment on above: Performed By: #### [id number] #### [facility] Chemistry Manual Subsection [address] [place] [address] Lipid Profileon 01-08-2018 Cholesterol in HDL mass conc 37 mg/dL Normal [facility] Comment on above: Performed By: #### [id number] #### [facility] [address] [place] [address] Cholesterol in LDL mass conc 44 mg/dL Normal 0-130 [facility] Comment on above: Performed By: #### [id number] #### [facility] [address] [place] [address] Cholesterol in VLDL mass conc 24 mg/dL Normal [facility] Comment on above: Performed By: #### [id number] #### [facility] [address] [place] [address] Cholesterol mass conc 105 mg/dL Low 120-200 [facility] Comment on above: Performed By: #### [id number] #### [facility] [address] [place] [address] Triglyceride mass conc 122 mg/dL Normal 0-150 [facility] Comment on above: Result Comment: [...] 200 - 499 Performed By: #### 3 [id number] #### [facility] [address] [place] [address] PSA Totalon 01-08-2018 PSA Total <0.10 Normal [facility] Comment on above: Performed By: #### 1 [id number] #### [facility] [address] [place] [address] eGFRon 01-08-2018 GFR/1.73 sq M predicted among non-blacks MDRD vol rate/area (S/P/Bld) mL/min/{1.73_m2} Normal [facility] Comment on above: Order Comment: Order added by Discern Expert. Performed By: #### 1 [id number] #### [facility] [address] [place] [address] ECG 12 Leadon 09-13-2017 Atrial Rate Invalid Interpretation Code [facility] P [place] Invalid Interpretation Code [facility] P-R Interval Invalid Interpretation Code [facility] Q-T Interval Invalid Interpretation Code [facility] Q-T Interval (corrected) Invalid Interpretation Code [facility] QRS Duration Invalid Interpretation Code [facility] QTC Calculation (Bezet) Invalid Interpretation Code [facility] R [place] Invalid Interpretation Code [facility] T [place] Invalid Interpretation Code [facility] Ventricular Rate Invalid Interpretation Code [facility] Vital Signs Date Time Vital Sign Value Performing Clinician Facility 09-21-2024 06:51-0400 Body height 177.[address] Len Duque MD Work Phone: [facility] 01-20-2024 14:57-0500 Body mass index (BMI) [Ratio] 22.63 kg/m2 Len Duque MD Work Phone: [facility] 01-20-2024 14:57-0500 Body weight 68.49 kg Len Duque MD Work Phone: [facility] 01-20-2024 14:57-0500 Diastolic blood pressure 77 mm[Hg] Len Duque MD Work Phone: [facility] 01-20-2024 14:57-0500 Heart rate 77 /min Len Duque MD Work Phone: [facility] 01-20-2024 14:57-0500 SaO2% (BldA) [Mass fraction] 96 % Len Duque MD Work Phone: [facility] 01-20-2024 14:57-0500 Systolic blood pressure 118 mm[Hg] Len Duque MD Work Phone: [facility] 07-20-2023 14:48-0400 Body height 174 cm Len Duque MD Work Phone: [facility] 07-20-2023 14:48-0400 Body mass index (BMI) [Ratio] 23.08 kg/m2 Len Duque MD Work Phone: [facility] 07-20-2023 14:48-0400 Body weight 69.85 kg Len Duque MD Work Phone: [facility] 07-20-2023 14:48-0400 Diastolic blood pressure 72 mm[Hg] Len Duque MD Work Phone: [facility] 07-20-2023 14:48-0400 Heart rate 72 /min Len Duque MD Work Phone: [facility] 07-20-2023 14:48-0400 SaO2% (BldA) [Mass fraction] 96 % Len Duque MD Work Phone: [facility] 07-20-2023 14:48-0400 Systolic blood pressure 122 mm[Hg] Len Duque MD Work Phone: [facility] 02-23-2023 14:27-0500 Body mass index (BMI) [Ratio] 23.48 kg/m2 Len Duque MD Work Phone: [facility] 02-23-2023 14:27-0500 Body weight 72.12 kg Len Duque MD Work Phone: [facility] 02-23-2023 14:27-0500 Diastolic blood pressure 72 mm[Hg] Len Duque MD Work Phone: [facility] 02-23-2023 14:27-0500 Heart rate 69 /min Len Duque MD Work Phone: [facility] 02-23-2023 14:27-0500 SaO2% (BldA) [Mass fraction] 96 % Len Duque MD Work Phone: [facility] 02-23-2023 14:27-0500 Systolic blood pressure 116 mm[Hg] Len Duque MD Work Phone: [facility] 01-11-2023 15:30-0500 Body mass index (BMI) [Ratio] 24.07 kg/m2 Len Duque MD Work Phone: [facility] 01-11-2023 15:30-0500 Body weight 73.94 kg Len Duque MD Work Phone: [facility] 01-11-2023 15:30-0500 Diastolic blood pressure 70 mm[Hg] Len Duque MD Work Phone: [facility] 01-11-2023 15:30-0500 Heart rate 73 /min Len Duque MD Work Phone: [facility] 01-11-2023 15:30-0500 SaO2% (BldA) [Mass fraction] 97 % Len Duque MD Work Phone: [facility] 01-11-2023 15:30-0500 Systolic blood pressure 122 mm[Hg] Len Duque MD Work Phone: [facility] 07-07-2022 15:19-0400 Body height 175.3 cm Len Duque MD Work Phone: [facility] 07-07-2022 15:19-0400 Body mass index (BMI) [Ratio] 25.84 kg/m2 Len Duque MD Work Phone: [facility] 07-07-2022 15:19-0400 Body weight 79.38 kg Len Duque MD Work Phone: [facility] 07-07-2022 15:19-0400 Diastolic blood pressure 78 mm[Hg] Len Duque MD Work Phone: [facility] 07-07-2022 15:19-0400 Heart rate 79 /min Len Duque MD Work Phone: [facility] 07-07-2022 15:19-0400 SaO2% (BldA) [Mass fraction] 96 % Len Duque MD Work Phone: [facility] 07-07-2022 15:19-0400 Systolic blood pressure 110 mm[Hg] Len Duque MD Work Phone: [facility] 02-17-2022 13:53-0500 Body height 175.26 cm Len Duque Work Phone: [facility] Work Phone: 02-17-2022 13:53-0500 Body mass index (BMI) [Ratio] 24.96 kg/m2 Len Duque Work Phone: [facility] Work Phone: 02-17-2022 13:53-0500 Body surface area Derived from formula 1.92 m2 Len Duque Work Phone: [facility] Work Phone: 02-17-2022 13:53-0500 Body weight 76.66 kg Len Duque Work Phone: [facility] Work Phone: 02-17-2022 13:53-0500 Diastolic blood pressure 76 mm[Hg] Len Faith Moralezer Work Phone: [facility] Work Phone: 02-17-2022 13:53-0500 Heart rate 68 /min Len O Duque Work Phone: [facility] Work Phone: 02-17-2022 13:53-0500 Systolic blood pressure 128 mm[Hg] Len O Duque Work Phone: [facility] Work Phone: 12-06-2021 06:09-0400 Body temperature 98 [degF] [facility] Work Phone: 12-06-2021 06:09-0400 Diastolic blood pressure 82 mm[Hg] [facility] Work Phone: 12-06-2021 06:09-0400 Heart rate 61 /min [facility] Work Phone: 12-06-2021 06:09-0400 Respiratory rate 17 /min [facility] Work Phone: 12-06-2021 06:09-0400 SaO2% (BldA) [Mass fraction] 96 % [facility] Work Phone: 12-06-2021 06:09-0400 Systolic blood pressure 141 mm[Hg] [facility] Work Phone: 12-06-2021 04:09-0400 Body height 177.8 cm [facility] Work Phone: 12-06-2021 04:09-0400 Body mass index (BMI) [Ratio] 24.2 kg/m2 [facility] Work Phone: 12-06-2021 04:09-0400 Body weight 76.5 kg [facility] Work Phone: 01-09-2021 13:50-0400 Body height 175.9 cm Len O Duque Work Phone: [facility] Work Phone: 01-09-2021 13:50-0400 Body mass index (BMI) [Ratio] 25.51 kg/m2 Len O Duque Work Phone: [facility] Work Phone: 01-09-2021 13:50-0400 Body surface area Derived from formula 1.95 m2 Len O Duque Work Phone: [facility] Work Phone: 01-09-2021 13:50-0400 Body weight 78.93 kg Len Moralezer Work Phone: [facility] Work Phone: 01-09-2021 13:50-0400 Diastolic blood pressure 64 mm[Hg] Len Rodgersyder Work Phone: [facility] Work Phone: 01-09-2021 13:50-0400 Heart rate 72 /min Len O Duque Work Phone: [facility] Work Phone: 01-09-2021 13:50-0400 Systolic blood pressure 110 mm[Hg] Len Faith Moralezer Work Phone: [facility] Work Phone: 07-08-2020 11:37-0400 Body height 175.9 cm Len Duque MD [facility] Work Phone: 07-08-2020 11:37-0400 Body mass index (BMI) [Ratio] 27.12 kg/m2 Len Duque MD [facility] Work Phone: 07-08-2020 11:37-0400 Body surface area Derived from formula 2 m2 Len Duque MD [facility] Work Phone: 07-08-2020 11:37-0400 Body weight 83.92 kg Len Duque MD [facility] Work Phone: 07-08-2020 11:37-0400 Diastolic blood pressure 80 mm[Hg] Len Duque MD [facility] Work Phone: Comment on above: Location: LUE; 07-08-2020 11:37-0400 Heart rate 72 /min Len Duque MD [facility] Work Phone: 07-08-2020 11:37-0400 Systolic blood pressure 124 mm[Hg] Len Duque MD [facility] Work Phone: Comment on above: Location: E; 05-29-2020 11:09-0400 BMI (Body Mass Index) 27.85 kg/m2 Len Duque [facility] Work Phone: 05-29-2020 11:09-0400 Body weight 86.18 kg Len Duque [facility] Work Phone: 05-29-2020 11:09-0400 BP Diastolic 74 mm[Hg] Len Rodgersyder [facility] Work Phone: Comment on above: Location: RUE; 05-29-2020 11:09-0400 BP Systolic 126 mm[Hg] Len Duque [facility] Work Phone: Comment on above: Location: RUE; 05-29-2020 11:09-0400 BSA (Body Surface Area) 2.03 m2 Len Duque -[facility] Work Phone: 05-29-2020 11:09-0400 Height 175.9 cm Len Duque [facility] Work Phone: 05-29-2020 11:09-0400 Pulse (Heart Rate) 68 /min Len Duque [facility] Work Phone: 09-13-2017 13:01-0400 BMI (Body Mass Index) 28.71 kg/m2 Ryan Dillard [facility] 09-13-2017 13: Height 177.8 cm Ryan Dillard [facility] 09-13-2017 13: Weight 90.77 kg Ryan Dillard [facility] Encounters Encounter Date Encounter Type Care Provider Facility Start: 11-07-2024 Registered Referred Chau White Start: 11-07-2024 End: 11-07-2024 ambulatory Efderrell Smallwood OLS Facility:[facility] Start: 10-27-2024 End: 10-27-[address] Len Duque MD Work Phone: 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 Len Duque MD Work Phone: [facility] Start: 10-06-2024 End: 10-06-2024 Patient encounter procedure Catrina Prasad [facility] Work Phone: Start: 10-02-2024 ambulatory Chau MURRELL Fa cility:[facility] Start: 10-02-2024 Registered Referred Chau White Start: 09-05-2024 End: 09-05-[address] Len Duque MD Work Phone: [facility] Start: 09-05-2024 End: 09-05-[address] Chau Smallwood MD -[facility] Work Phone: Start: 08-22-2024 End: 08-22-[address] Len Duque MD Work Phone: [facility] Start: 08-22-2024 End: 08-22-2024 Departed Referred Chau Smallwood MD -[facility] Start: 08-22-2024 Registered Referred Chau Smallwood MD -[facility] Start: 08-22-2024 End: 08-22-2024 ambulatory Len Duque Facility:[facility] Start: 08-08-2024 End: 08-08-[address] Len Duque MD Work Phone: [facility] Start: 08-08-2024 End: 08-08-[address] hCau Smallwood MD -[facility] Work Phone: Start: 08-07-2024 End: 08-07-[address] Len Duque MD Work Phone: 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); Hypercholesterolemia; Primary hypertension; Type 2 diabetes mellitus without complication, without long-term current use of insulin (Multi); Abnormal weight loss; Benign prostatic hyperplasia with urinary obstruction; Bilateral renal cysts; Cervical spondylolysis; 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; 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 (Multi); Hiatal hernia; Chronic bilateral low back pain without sciatica; Malignant neoplasm of skin; Prostate cancer (Multi); Pseudophakia, both eyes; 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, psychotic disturbance, mood disturbance, or anxiety; Urge incontinence of urine Start: 01-20-2024 End: 01-20-2024 [facility] Start: 01-20-2024 End: 01-20-2024 ambulatory JOSIANE DANIELS [facility] Start: 07-20-2023 End: 07-20-2023 Office outpatient visit 25 minutes Len Duque MD Work Phone: [facility] Comment on above: Abnormal weight loss (Primary Dx); Benign prostatic hyperplasia with urinary obstruction; 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 (CMS-HCC); Diabetic [...] of urine Start: 07-03-2023 End: 07-03-2023 ambulatory [facility] Start: 02-23-2023 End: 02-23-2023 Office outpatient visit 15 minutes Len Duque MD Work Phone: [facility] Comment on above: Diabetic mononeuropa thy associated with type 2 diabetes mellitus (CMS/HCC) (Primary Dx); Abnormal weight loss; 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, psychotic disturbance, mood disturbance, or anxiety (CMS/HCC) Start: 01-11-2023 End: 01-11-2023 Assay of hemosiderin, quant Len Duque MD Work Phone: [facility] Work Phone: Start: 01-11-2023 End: 01-11-2023 Office outpatient visit 25 minutes Len Duque MD Work Phone: [facility] Comment on above: Routine general medi jean examination at health care facility (Primary Dx); 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, psychotic disturbance, mood disturbance, or anxiety (CMS/HCC); Hypercholesterolemia; 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 (CMS/HCC); Primary [...] End: 07-07-2022 Office outpatient visit 25 minutes Len Duque MD Work Phone: [facility] Comment on above: 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 (Primary Dx); Prostate cancer (CMS/HCC); Bilateral renal cysts; Cervical spondylolysis; 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 (CMS/HCC); 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 (CMS/HCC); Hiatal hernia; Hypercholesterolemia; Primary hypertension; Chronic bilateral low back pain without sciatica; 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, psychotic disturbance, mood disturbance, or anxiety (CMS/HCC); Malignant neoplasm of skin; Pseudophakia, both eyes; Urge incontinence of urine Start: 03-13-2022 AUDIT Len Duque Work Phone: [facility] Work Phone: Start: 02-17-2022 Office outpatient vi sit 15 minutes Len Duque Work Phone: [facility] Work Phone: Start: 02-17-2022 ambulatory Len Duque Facil [id number] Start: 01-13-2022 ambulatory Len Duque Facil [id number] Start: 12-06-2021 End: 12-06-2021 Emergency department patient visit [facility] Start: 10-02-2021 AUDIT Len Duque Work Phone: [facility] Work Phone: Start: 07-11-2021 ambulatory Len Duque Facil [id number] Start: 07-07-2021 Chart Update Len Duque Work Phone: [facility] Work Phone: Start: 01-09-2021 Office outpatient vi sit 25 minutes Len Rodgersyder Work Phone: [facility] Work Phone: Start: 10-07-2020 AUDIT Len Duque Work Phone: [facility] Work Phone: Start: 07-08-2020 Patient encounter procedure Len Duque MD [facility] Work Phone: Start: 05-29-2020 Patient encounter procedure Len Duque [facility] Work Phone: Start: 01-11-2020 Patient encounter procedure Len Duque [facility] Work Phone: Start: 07-11-2019 Patient encounter procedure Len Duque [facility] Work Phone: Start: 01-11-2019 Patient encounter procedure Len Duque [facility] Work Phone: Start: 07-08-2018 End: 07-09-2018 Patient encounter procedure Len Rodgersyder Facility:[facility] Start: 07-02-2018 End: 07-03-2018 Patient encounter procedure Len Moralezer Facility:[facility] Start: 01-08-2018 End: 01-09-2018 Patient encounter procedure Len Duque Facility:[facility] Start: 01-07-2018 End: 01-08-2018 Patient encounter procedure Len Duque Facility:[facility] Start: 09-13-2017 End: 09-13-2017 Office outpatient visit 15 minutes Ryan Dillard Work Phone: [facility] Office Procedures Date Procedure Procedure Detail Performing Clinician Start: 01-20-2024 Lipid 1996 panel - Serum or Plasma Len Duque MD Work Phone: Start: 07-03-2023 Comprehensive metabolic 2000 panel - Serum or Plasma LEN DUQUE Start: 07-03-2023 Hemoglobin A1c/Hemoglobin.total in Blood LEN DUQUE Start: 12-26-2022 Lipid 1996 panel - Serum or Plasma eLn Duque MD Work Phone: Start: 01-10-2022 Lipid 1996 panel - Serum or Plasma Len Duque MD Work Phone: Start: 01-06-2022 Cystoscopy Len Duque Work Phone: Start: 12-06-2021 Plain chest X-ray Start: 05-06-2020 Cataract surgery Len Duque Work Phone: Comment on above: May in both eyes 2020; Start: 07-11-2019 Albumin, Urine Spot Len Duque Start: 07-11-2019 Assay of prostate specific antigen total Len Duque Start: 07-11-2019 Comprehensive metabolic 2000 panel Len Duque Start: 07-11-2019 Cyanocobalamin vitamin b-12 Len Duque Start: 07-11-2019 Hemoglobin glycosylated a1c Len Duque Start: 07-11-2019 Lipid panel Len Duque Start: 07-11-2019 Noninvasive colorectal cancer DNA and occult blood screening [Presence] in Stool Len Duque Start: 01-24-2010 Colonoscopy Len Duque Work Phone: Angioplasty of renal artery Len Duque End: 05-06-2020 Cataract surgery Len Duque Cholecystectomy Len Duque End: 01-24-2010 Colonoscopy Len Duque Esophagogastroduodenoscopy R oger Roland Hernia repair Len Duque Placement of stent i n coronary artery Len Duque Repair of shoulder Len Bateman triny Vasectomy Len Duque Plan of Treatment Date Care Activity Detail Author Start: 07-10-2027 DTaP/Tdap/Td Vaccine s (2 - Td or Tdap) DTaP/Tdap/Td Vaccines (2 - Td or Tdap) [facility] Start: 01-19-2025 Lipid panel Lipid Panel [facility] Start: 07-19-2024 End: 01-19-2025 Comprehensive metabolic 2000 panel - Serum or Plasma Comprehensive metabolic panel Lab Routine 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) Expected: 07/19/2024 (Approximate), Expires: 01/19/2025 [facility] Service Area Work Phone: Comment on above: Expected: 07/19/2024 (Approximate), Expires: 01/19/2025 Start: 07-19-2024 End: 01-19-2025 Hemoglobin A1c/Hemoglobin.total in Blood Hemoglobin A1c Lab Routine 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) Expected: 07/19/2024 (Approximate), Expires: 01/19/2025 [facility] Work Phone: Comment on above: Expected: 07/19/2024 (Approximate), Expires: 01/19/2025 Start: 02-26-2024 COVID-19 Vaccine () COVID-19 Vaccine () [facility] Start: 01-20-2024 End: 01-20-2024 Patient encounter procedure 01/20/2024 3:00 PM EST Office Visit [facility] [address] [id number] Len Duque MD [address] [facility] [address] [place] [address] [facility] Start: 01-20-2024 End: 07-19-2024 CBC panel - Blood by Automated count CBC Lab Routine 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) Expected: 01/20/2024 (Approximate), Expires: 07/19/2024 [facility] Service Area Work Phone: Comment on above: Expected: 01/20/2024 (Approximate), Expires: 07/19/2024 Start: 01-20-2024 End: 07-19-2024 Cobalamin (Vitamin B12) [Mass/volume] in Serum or Plasma Vitamin B12 Lab Routine 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) Expected: 01/20/2024 (Approximate), Expires: 07/19/2024 [facility] Work Phone: Comment on above: Expected: 01/20/2024 (Approximate), Expires: 07/19/2024 Start: 01-20-2024 End: 07-19-2024 Comprehensive metabolic 2000 panel - Serum or Plasma Comprehensive Metabolic Panel Lab Routine 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) Expected: 01/20/2024 (Approximate), Expires: 07/19/2024 [facility] Work Phone: Comment on above: Expected: 01/20/2024 (Approximate), Expires: 07/19/2024 Start: 01-20-2024 End: 07-19-2024 Hemoglobin A1c/Hemoglobin.total in Blood Hemoglobin A1C Lab Routine 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) Expected: 01/20/2024 (Approximate), Expires: 07/19/2024 [facility] Work Phone: Comment on above: Expected: 01/20/2024 (Approximate), Expires: 07/19/2024 Start: 01-20-2024 End: 07-19-2024 Lipid 1996 panel - Serum or Plasma Lipid Panel Lab Routine Hypercholesterolemia Expected: 01/20/2024 (Approximate), Expires: 07/19/2024 [facility] Work Phone: Comment on above: Expected: 01/20/2024 (Approximate), Expires: 07/19/2024 Start: 01-20-2024 End: 07-19-2024 Prostate specific Ag [Mass/volume] in Serum or Plasma Prostate Specific Antigen Lab Routine Prostate cancer (Multi) Expected: 01/20/2024 (Approximate), Expires: 07/19/2024 [facility] Work Phone: Comment on above: Expected: 01/20/2024 (Approximate), Expires: 07/19/2024 Start: 12-27-2023 Lipid panel Lipid Panel [facility] Start: 11-07-2023 Influenza vaccination Influenz a Vaccine (Season Ended) [facility] Start: 10-02-2023 Hemoglobin A1c measurement Diabetes: Hemoglobin A1C [facility] Start: 07-27-2023 End: 07-27-2023 Patient encounter procedure 07/27/2023 3:00 PM EDT Office Visit Community [facility] [address] [place] [id number] Len Duque MD [address] [facility], [address] [place] [address] [facility] Start: 07-23-2023 End: 02-24-2024 Comprehensive metabolic 2000 panel - Serum or Plasma Comprehensive Metabolic Panel Lab Routine 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 (CMS/HCC) Expected: 07/23/2023 (Approximate), Expires: 02/24/2024 [facility] Service Area Work Phone: Comment on above: Expected: 07/23/2023 (Approximate), Expires: 02/24/2024 Start: 07-23-2023 End: 02-24-2024 Hemoglobin A1c/Hemoglobin.total in Blood Hemoglobin A1C Lab Routine 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 (CMS/HCC) Expected: 07/23/2023 (Approximate), Expires: 02/24/2024 [facility] Work Phone: Comment on above: Expected: 07/23/2023 (Approximate), Expires: 02/24/2024 Start: 03-28-2023 Hemoglobin A1c measurement Diabetes: Hemoglobin A1C [facility] Start: 02-16-2023 End: 02-16-2023 Patient encounter procedure 02/16/2023 4:00 PM EST Office Visit [facility] [address] [place] [id number] Len Duque MD [address] [facility], [address] [place] [address] [facility] Start: 01-10-2023 Lipid panel Lipid Panel [facility] Start: 01-07-2023 End: 07-08-2023 CBC panel - Blood by Automated count CBC Lab Routine 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 (CMS/HCC) Expected: 01/07/2023 (Approximate), Expires: 07/08/2023 [facility] Work Phone: Comment on above: Expected: 01/07/2023 (Approximate), Expires: 07/08/2023 Start: 01-07-2023 End: 07-08-2023 Comprehensive metabolic 2000 panel - Serum or Plasma Comprehensive Metabolic Panel Lab Routine 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 (CMS/HCC) Expected: 01/07/2023 (Approximate), Expires: 07/08/2023 [facility] Work Phone: Comment on above: Expected: 01/07/2023 (Approximate), Expires: 07/08/2023 Start: 01-07-2023 End: 07-08-2023 Hemoglobin A1c/Hemoglobin.total in Blood Hemoglobin A1C Lab Routine 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 (CMS/HCC) Expected: 01/07/2023 (Approximate), Expires: 07/08/2023 [facility] Work Phone: Comment on above: Expected: 01/07/2023 (Approximate), Expires: 07/08/2023 Start: 01-07-2023 End: 07-08-2023 Lipid 1996 panel - Serum or Plasma Lipid Panel Lab Routine Hypercholesterolemia Expected: 01/07/2023 (Approximate), Expires: 07/08/2023 [facility] Work Phone: Comment on above: Expected: 01/07/2023 (Approximate), Expires: 07/08/2023 Start: 01-07-2023 End: 07-08-2023 Magnesium [Mass/volume] in Serum or Plasma Magnesium Lab Routine 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 (CMS/HCC) Expected: 01/07/2023 (Approximate), Expires: 07/08/2023 [facility] Work Phone: Comment on above: Expected: 01/07/2023 (Approximate), Expires: 07/08/2023 Start: 01-07-2023 End: 07-08-2023 Prostate specific Ag [Mass/volume] in Serum or Plasma PSA Lab Routine Prostate cancer (CMS/HCC) Expected: 01/07/2023 (Approximate), Expires: 07/08/2023 [facility] Service Area Work Phone: Comment on above: Expected: 01/07/2023 (Approximate), Expires: 07/08/2023 Start: 01-07-2023 End: 07-08-2023 TSH with reflex to Free T4 if abnormal TSH with reflex to Free T4 if abnormal Lab Routine Primary hypertension Expected: 01/07/2023 (Approximate), Expires: 07/08/2023 [facility] Work Phone: Comment on above: Expected: 01/07/2023 (Approximate), Expires: 07/08/2023 Start: 11-06-2022 COVID-19 Vaccine ( season) COVID-19 Vaccine ( season) [facility] Start: 11-06-2022 Influenza vaccination [facility] Start: 07-07-2022 EPV, Provider: Len Duque, Status: Pen, Time: 3:30 PM EPV, Provider: Len Duque, Status: Pen, Time: 3:30 PM [facility] Work Phone: Start: 04-12-2022 Hemoglobin A1c measurement Diabetes: Hemoglobin A1C [facility] Start: 01-13-2022 EPV, Provider: Len Duque, Status: Pen, Time: 3:30 PM EPV, Provider: Len Duque, Status: Pen, Time: 3:30 PM [facility] Work Phone: Start: 07-11-2021 EPV, Provider: Len Duque, Status: Pen, Time: 2:30 PM EPV, Provider: Len Duque, Status: Pen, Time: 2:30 PM [facility] Work Phone: Start: 01-25-2021 COVID-19 Vaccine (4 - Booster for Pfizer series) COVID-19 Vaccine (4 - Booster for Pfizer series) [facility] Start: 01-25-2021 COVID-19 Vaccine (4 - Pfizer series) COVID-19 Vaccine (4 - Pfizer series) [facility] Start: 01-09-2021 EPV, Provider: Len Duque, Status: Pen, Time: 2:00 PM EPV, Provider: Len Duque, Status: Pen, Time: 2:00 PM [facility] Work Phone: Start: 01-08-2021 Assay of prostate specific antigen total Prostate Specific Antigen [facility] Work Phone: Start: 01-08-2021 CBC W Auto Differential panel - Blood Complete Blood Count [facility] Work Phone: Start: 01-08-2021 Comprehensive metabolic 2000 panel - Serum or Plasma Comprehensive Metabolic Panel [facility] Work Phone: Start: 01-08-2021 Cyanocobalamin vitam in b-12 Vitamin B12, Serum [facility] Work Phone: Start: 01-08-2021 Hemoglobin glycosylated a1c Hemoglobin A1C [facility] Work Phone: Start: 01-08-2021 Lipid panel Lipid Panel [facility] Work Phone: Start: 01-05-2021 Urine screening for protein Diabetes: Urine Protein Screening [facility] Start: 07-08-2020 Assay of prostate specific antigen total Prostate Specific Antigen [facility] Work Phone: Start: 07-08-2020 CBC W Auto Differential panel - Blood Complete Blood Count [facility] Work Phone: Start: 07-08-2020 Comprehensive metabolic 2000 panel - Serum or Plasma Comprehensive Metabolic Panel [facility] Work Phone: Start: 07-08-2020 Cyanocobalamin vitam in b-12 Vitamin B12, Serum [facility] Work Phone: Start: 07-08-2020 Hemoglobin glycosylated a1c Hemoglobin A1C [facility] Work Phone: Start: 07-08-2020 Lipid panel Lipid Panel [facility] Work Phone: Start: 01-11-2020 Assay of prostate specific antigen total Prostate Specific Antigen [facility] Work Phone: Start: 01-11-2020 Cobalamin (Vitamin B12) [Mass/Vol] Vitamin B12, Serum [facility] Work Phone: Start: 01-11-2020 Comprehensive metabolic 2000 panel [facility] Work Phone: Start: 01-11-2020 HbA1c (Bld) [Mass fraction] Hemoglobin A1C [facility] Work Phone: Start: 01-11-2020 Lipid panel Lipid Panel [facility] Work Phone: Start: 11-06-2017 Influenza vaccination SEQUENTI AL INFLUENZA VACCINE (#1) [facility] Start: 2007 Pneumococcal vaccination PNEUMOCOCCAL VACCINE AGE 65+ (1 of 2 - PCV13) [facility] Start: 2002 RSV patient s and/or patients aged 60+ years (1 - 1-dose 60+ series) RSV patients and/or patients aged 60+ years (1 - 1-dose 60+ series) [facility] Start: 2002 Zoster vaccine hzv live for subcutaneous use ZOSTER VACCINE [facility] Start: 1992 Zoster Vaccines (1 o f 2) Zoster Vaccines (1 of 2) [facility] Start: 1952 Diabetic foot examination Diabetes: Foot Exam [facility] Start: 1952 Glaucoma screening Diabetes: R etinopathy Screening [facility] Start: 1952 Ophthalmic examinati on and evaluation Diabetes: Retinopathy Screening [facility] Start: 1942 Examination of skin Derm Melanoma Sk in Check [facility] Start: 1942 Screening colonoscopy [facility] Start: 1942 Tetanus vaccination TETANUS EVERY 10 YR [facility] Start: 1942 Yearly Adult Physical Yearly Adult P [facility] Patient Education ED Chest Pain, Noncardiac ED Chest Wall Strain [facility] Work Phone: Patient referral [facility] Work Phone: NEGATED: Highlighted row has been ruled out! Planned Goals not documented [facility] Work Phone: Immunizations Immunization Date Immunization Notes Care Provider Fa cili 01-01-2024 influenza, seasonal, injectable Len Duque MD Work Phone: [facility] Work Phone: 01-01-2024 Pfizer Purple Cap SARS-CoV-2 Len Duque MD Work Phone: [facility] Work Phone: 01-01-2024 Respiratory Synctial Virus (Rsv), Unspecified Len Duque MD Work Phone: [facility] Work Phone: 01-23-2022 Pfizer COVID-19 Vac Bivalent 30 MCG/0.3ML Intramuscular Suspension Len Duque Work Phone: [facility] Work Phone: Comment on above: Series: 12-01-2021 Fluzone High-Dose Quadrivalent 0.7 ML Intramuscular Suspension Prefilled Syringe Len Duque Work Phone: [facility] Work Phone: Comment on above: Series: 12-01-2021 influenza virus vacc ine, unspecified formulation Len Duque MD Work Phone: [facility] Work Phone: 08-24-2021 zoster vaccine recombinant Len Duque Work Phone: [facility] Work Phone: Comment on above: Series: 08-24-2021 zoster vaccine, live Len Duque Work Phone: [facility] Work Phone: Comment on above: Series: 06-20-2021 zoster vaccine recombinant Len Duque Work Phone: [facility] Work Phone: Comment on above: Series: 11-30-2020 influenza, high dose seasonal, preservative-free Len Rodgersyder Work Phone: [facility] Work Phone: Comment on above: Series: 11-30-2020 influenza, seasonal, injectable Len Faith Roland Work Phone: [facility] Work Phone: Comment on above: Series: 11-30-2020 Influenza, Seasonal, Quadrivalent, Adjuvanted Len Duque MD Work Phone: [facility] Work Phone: 11-30-2020 Pfizer-BioNTech COVI D-19 Vacc 30 MCG/0.3ML Intramuscular Suspension Len Duque Work Phone: [facility] Work Phone: Comment on above: Series: 04-24-2020 Pfizer-BioNTech COVI D-19 Vacc 30 MCG/0.3ML Intramuscular Suspension Len Moralezer [facility] Work Phone: Comment on above: Series: 04-03-2020 Pfizer-BioNTech COVI D-19 Vacc 30 MCG/0.3ML Intramuscular Suspension Len Duque [facility] Work Phone: Comment on above: Series: 12-20-2019 influenza virus vacc ine, unspecified formulation Len Duque Work Phone: [facility] Work Phone: Comment on above: Series: 12-20-2019 influenza, injectabl e, quadrivalent, preservative free Len Duque MD Work Phone: [facility] Work Phone: 12-20-2019 influenza, seasonal, injectable Len Duque [facility] Work Phone: Comment on above: Series: 12-20-2019 influenza, seasonal, injectable Len Duque [facility] Work Phone: 01-06-2019 influenza, seasonal, injectable Len Duque [facility] Work Phone: Comment on above: Series: 12-24-2017 influenza virus vacc ine, unspecified formulation; Translations: [influenza virus vaccine, unspecified formulation] Len Duque [facility] Work Phone: Comment on above: Series: 07-09-2017 tetanus toxoid, redu omaira diphtheria toxoid, and acellular pertussis vaccine, adsorbed Len Duque [facility] Work Phone: Comment on above: Series: 12-30-2016 influenza virus vacc ine, live, attenuated, for intranasal use Len Duque MD Work Phone: [facility] Work Phone: 07-14-2016 pneumococcal conjuga te vaccine, 13 valent Len Duque [facility] Work Phone: Comment on above: Series: 01-19-2011 pneumococcal polysaccharide vaccine, 23 valent Len Duque [facility] Work Phone: Comment on above: Series: Payers Date Payer Category Payer Medicaid [id number] 2024 Self-pay [id number] 2023 Managed Care (Private) [employer] [employer] [id number] 2023 Private Health Insurance [id number] 2023 Private Health Insurance [id number] 2015 Medicare supplementa l policy (as second payer) [employer] SUPPLEMENT [id number] 2015 Medicare [id number] 2015 Private Health Insurance [id number] 2011 Private Health Insurance 2011 Private Health Insurance [id number] 1942 Unknown [id number] .[id number] 1942 Unknown [id number] [id number] .356 1942 Unknown [id number] 2..[id number] .356 1942 Unknown [id number] [id number] .356 1942 Unknown [id number] [id number] .1245 1942 Unknown [id number] [id number] .1245 1942 Unknown [id number] [id number] .1244 1942 Unknown [id number] 2.16.840.1.181711.3.579.2 .1244 Unknown Unknown [id number] [id number] .462 Unknown [id number] 2.16.840.1.909668.3.579.2 .462 Unknown [id number] 2.16.840.1.268990.3.579.2 .462 Unknown [id number] 2.16.840.1.303447.3.579.2 .462 Unknown [id number] 2.16.840.1.186707.3.579.2 .462 Unknown [id number] [id number] .462 Unknown [id number] 2.16.840.1.418761.3.579.2 .462 Unknown [id number] 2.16.840.1.130160.3.579.2 .462 Unknown [id number] [id number] .462 Unknown [id number] [id number] .462 Social History Date Type Detail Facility Start: 09-13-2017 End: 09-21-2024 Tobacco smoking status [facility] Former smoker [facility] Sex Assigned At Not on file [facility] Start: 07-07-2022 End: 01-11-2023 No recent foreign travel No recent foreign travel -[facility] Work Phone: Start: 12-06-2021 Tobacco smoking status NHIS Unknown if ever smoked [facility] Work Phone: Start: 12-06-2021 None [facility] Start: 12-06-2021 Non-smoker [facility] Start: 1940 Sex Assigned At Male [facility] Start: 03-08-1954 End: 03-08-1964 History of tobacco use Current smoker [facility] Work Phone: Start: 03-08-1954 End: 03-08-1964 History of tobacco use Cigarette Smoker [facility] Work Phone: Start: 07-07-2022 End: 07-20-2023 Tobacco use and exposure Smokeless tobacco non-user [facility] Work Phone: Start: 07-07-2022 Alcohol intake Lifetime non-d marii (finding) [facility] Work Phone: Start: 07-07-2022 End: 01-11-2023 Tobacco use panel [facility] Work Phone: Start: 07-05-2022 Gender identity Identifies as male gender (finding) [facility] Work Phone: Start: 06-27-2022 End: 01-20-2024 Exposure to SARS-CoV-2 (event) Not sure [facility] Start: 01-11-2023 End: 01-20-2024 Alcohol intake Ex-drinker (finding) [facility] Work Phone: NEGATED: Highlighted row - - [facility] Work Phone: Functional Status Date Assessment Result Facility NEGATED: Highlighted row Functional performance Functional status health issues are not documented Disease [facility] Work Phone: Mental Status Date Assessment Result Facility 12-06-2021 Cognitive function Awake;Alert;A ppropria te;Inappropriate [facility] Work Phone: NEGATED: Highlighted row Cognitive function [Interpretation] Cognitive status health issues are not documented Disease -[facility] Work Phone: Clinical Notes 01-09-2021 to 01-20-2024 Len Duque MD - 01/20/2024 3:00 PM Isis [...] States in August had pressure sore, used Bessemer and it cleared, but notes today he [...] Bilateral renal cysts Cervical spondylolysis 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 Diabetic mononeuropathy [...] - Established; Future documented in this encounter [facility] Work Phone: 07-20-2023 History of Present [...] Sitting) Pulse 72 Ht 1.74 m (5' 8.5") Wt 69.9 kg (154 lb) SpO2 96% [...] prostatic hyperplasia with urinary obstruction 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 ([facility]-HCC) Diabetic mononeuropathy associated with type [...] Care - Established documented in this encounter [facility] Work Phone: 02-23-2023 History of Present illness Narrative Subjective Patient ID: All Young III is a 82 y.o. male who presents for Follow-up (memory). HPI Last visit tried Remeron for appetite and moods. That made him weak and "out of it". So I changed him to Aricept ER 23. Seems to be doing better with moods and appetite. Eating better but had diarrhea the last few days so weight is down again. BMI is 23. 159 this time. No chest pain or racing heart, nausea and vomiting. No breaking open of ulcer on buttocks with trip to [place] DM doing well Review of Systems Objective [...] daily at bedtime. documented in this encounter [facility] Work Phone: 01-11-2023 History of Present [...] on confused days. Follows with urologist in [place]. CERVICAL SPONDYLOSIS WITHOUT MYELOPATHY - has been [...] States in August had pressure sore, used Bessemer and it cleared, but notes today he [...] shingles UTD LW and DPA Yamila Young, Shree Bartholomew, Albert Young Patient Care Team: Len Duque MD as PCP - General Review [...] renal cysts Cervical spondylolysis Coronary atherosclerosis of lytton coronary artery Relevant Medications clopidogrel (Plavix) 75 [...] appetite. Patient initially seen by Melody Dunham [employer] student. I reviewed history and examined patient independently and updated as needed. documented in this encounter [facility] Work Phone: 07-07-2022 History of Present [...] Sitting) Pulse 79 Ht 1.753 m (5' 9") Wt 79.4 kg (175 lb) SpO2 96% [...] Present, No bruit present. Integumentary: Warm, Dry, [place]. Psychiatric: Cooperative, Appropriate mood & affect, Normal judgment. Behavior: No pressured speech. Judgment: Able to make sensible decisions. Thought process: Appropriate. Low back not tender but tight with extension. 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 Risk prevention instructions provided. He was in the yard. Stumbled due to slow reflexes. When having more confusion. No injury documented in this encounter [facility] Work Phone: 07-07-2022 Instructions Len Duque MD - 07/07/2022 3:30 PM EDT [...] your healthcare team if you have questions [facility] 2021 documented in this encounter [facility] Work Phone: 01-13-2022 History of Present [...] Did have some swelling when driving to [place] after a long drive without walks.Having some leaking urine that is better on the medication. [facility] Work Phone: 01-09-2021 History of Present [...] up words. Names OK. 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 Last day is tomorrow. 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 (CMS/HCC) Diabetic [...] urine Urge incontinence documented in this encounter [facility] Work Phone: Evaluation note* Diagnosis Routine general medical examination at health care facility- Primary Routine general medical examination at a health care facility 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, psychotic disturbance, mood disturbance, or anxiety (CMS/HCC) Hypercholesterolemia Pure hypercholesterolemia 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 (CMS/HCC) Primary [...] of skin (CMS/HCC) documented in this encounter [facility] Work Phone: Evaluation note* Diagnosis 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 (CMS/HCC)- Primary Abnormal weight loss Loss of weight 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, psychotic disturbance, mood disturbance, or anxiety (CMS/HCC) documented in this encounter [facility] Work Phone: Evaluation note* Diagnosis Abnormal weight loss- Primary Loss of weight 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 I believe your pain is related to muscles in the chest wall. 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, [place] [address] Referral ID Status Reason Start Date Expiration Date V isits Requested Visits Authorized [id number] Authorized 07/07/2022 01/03/2023 1 1 [facility] Work Phone: reason for referral (narrative)* Consultation (Routine) - Authorized Specialty Diagnoses / Procedures Referred By Contac t Referred To Contact Primary Care Diagnoses Abnormal weight loss Procedures Follow Up In Primary Care - Established Len Duque MD [address] [facility], [place] [address] Referral ID Status Reason Start Date Expiration Date V isits Requested Visits Authorized [id number] Authorized 01/11/2023 01/11/2024 1 1 [facility] Work Phone: reason for referral (narrative)* Consultation (Routine) - Authorized Specialty Diagnoses / Procedures Referred By Contac t Referred To Contact Primary Care Procedures Follow Up In Primary Care - Established Len Duque MD [address] [facility], [place] [address] Referral ID Status Reason Start Date Expiration Date V isits Requested Visits Authorized [id number] Authorized 02/23/2023 02/23/2024 1 1 [facility] Work Phone: reason for referral (narrative)* Consultation (Routine) - Authorized Specialty Diagnoses / Procedures Referred By Contac t Referred To Contact Primary Care Diagnoses 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) Procedures Follow Up In Primary Care - Established Len Duque MD [address] [facility], [place] [address] Referral ID Status Reason Start Date Expiration Date V isits Requested Visits Authorized [id number] Authorized 07/20/2023 07/19/2024 1 1 [facility] Work Phone: reason for referral (narrative)* Consultation (Routine) - Authorized Specialty Diagnoses / Procedures Referred By Contac t Referred To Contact Primary Care Procedures Follow Up In Primary Care - Established Len Duque MD [address] [facility], [place] [address] Phone: tel: fax: Referral ID Status Reason Start Date Expiration Date V isits Requested Visits Authorized [id number] Authorized 01/20/2024 01/19/2025 1 1 [facility] Work Phone: reason for referral (narrative)No reason for referral [facility]: Assessments Diagnosis Coronary artery disease, ang cody presence unspecified, unspecified vessel or lesion type, unspecified whether [place] or transplanted heart Essential hypertension Unspecified essential [...] Will Yes December 06 4:12am Power of Nicker Yes December 06 4:12am Name of Medical Power of Nicker Yamila Young December 06, 2021 4:12am Chief Complaint medckfollow up memantine Chief Complaint and Reason for Visit Chief Complaint cp Chief Complaint Admit Date ADMISSION EXAM August 07, 2024 2:45p m Chief Complaint Admit Date ADMISSION EXAM August 07, 2024 2:45p m ADMISSION EXAM August 08, 2024 4:30p m PRISON LAB WORK August 22, 2024 5: 00am Chief Complaint Admit Date ADMISSION EXAM August 07, 2024 2:45p m ADMISSION EXAM August 08, 2024 4:30p m PRISON LAB WORK August 22, 2024 5: 00am Monthly Exam September 05, 2024 10:28 pm Chief Complaint Admit Date ADMISSION EXAM August 07, 2024 2:45p m ADMISSION EXAM August 08, 2024 4:30p m PRISON LAB WORK August 22, 2024 5: 00am Monthly Exam September 05, 2024 10:28 pm PRISON LAB WORK October 02, 2024 5: 00am MONTHLY EXAM October 06, 2024 11: 00am Chief Complaint Admit Date ADMISSION EXAM August 07, 2024 2:45p m ADMISSION EXAM August 08, 2024 4:30p m PRISON LAB WORK August 22, 2024 5: 00am Monthly Exam September 05, 2024 10:28 pm PRISON LAB WORK October 02, 2024 5: 00am MONTHLY EXAM October 06, 2024 11: 00am PRISON LAB WORK October 27, 2024 11:00am New Concern October 27, 2024 1: 40pm Additional Source Comments Assessment & Plan Note [...] section and content) DATE CREATED AUTHOR 07/17/2018 [facility] DATE CREATED AUTHOR AUTHOR'S ORGANIZ ATION 06/24/2020 [facility] DATE CREATED AUTHOR AUTHOR'S ORGANIZ ATION 02/18/2022 [facility] DATE CREATED AUTHOR AUTHOR'S ORGANIZ ATION 04/20/2022 [facility] DATE CREATED AUTHOR AUTHOR'S ORGANIZ ATION 01/25/2024 [facility] DATE CREATED AUTHOR AUTHOR'S ORGANIZ ATION 07/17/2024 [facility] DATE CREATED AUTHOR AUTHOR'S ORGANIZ ATION 09/02/2024 [facility] DATE CREATED AUTHOR AUTHOR'S ORGANIZ ATION 01/06/2025 [facility] Goals (unrecognized section and [...] Follow Up In Primary Care - Established Len Duque MD [address] 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, [place] [id number] Referral ID Status Reason Start Date Expiration Date Visits Re quested Visits Authorized [id number] Closed 07/07/2022 01/03/2023 1 1 Reason Comments Follow-up memory Specialty Diagnoses / Procedures Referred By Contac t Referred To Contact Primary Care Diagnoses Abnormal weight loss Procedures Follow Up In Primary Care - Established Len Duque MD [address] [facility], [address] [address] Referral ID Status Reason Start Date Expiration Date V isits Requested Visits Authorized [id number] Authorized 01/11/2023 01/11/2024 1 1 Specialty Diagnoses / Procedures Referred By Ferny ayoub Referred To Contact Primary Care Diagnoses 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) Procedures Follow Up In Primary Care - Established Len Duque MD [address] [facility], [facility] [address] [id number] Phone: tel: fax: Referral ID Status Reason Start Date Expiration Date V isits Requested Visits Authorized [id number] Authorized 07/20/2023 07/19/2024 1 1 Care Teams (unrecognized sec tion and content) Machine Container Washer Relationship Specialty Start Date End Date Len Duque MD [address] [facility], [place] [address] PCP - General 11/08/18 [employer] Washer Relationship Specialty Start Date End Date Len Duque MD [address] [facility], [place] [address] PCP - General 11/08/18 Machine Container Washer Relationship Specialty Start Date End Date Len Duque MD [address] [facility], [facility] [address] [place] [id number] PCP - General 11/08/18 Machine Container Washer Relationship Specialty Start Date End Date Len Duque MD [address] [facility], [place] [address] PCP - General 11/08/18 Machine Container Washer Relationship Specialty Start Date End Date Len Duque MD [address] [facility], [facility] [address] [place] [phone] PCP - General 11/08/18 Team Status: Active Member Role/Relationship Status Dates Dr. Len Duque MD Family Provider Active Dr. Len Duque MD Primary Care Provider Active Team Status: Inactive Member Role/Relationship Status Dates Dr. Len Duque MD Primary Care Provider Active Start: August 07, 2024 End: August 07, 2024 Kirti Ortiz SPIRAL MACHINE OPERATOR, SPIRAL MACHINE OPERATOR-C Attending Provider Active Start: August 07, 2024 End: August 07, 2024 Team Status: Active Member Role/Relationship Status Dates Dr. Len Duque MD Primary Care Provider Active Start: August 22, 2024 Chau MURRELL MD Attending Provider Active Start: August 22, 2024 Team Status: Inactive Member Role/Relationship Status Dates Dr. Len Duque MD Primary Care Provider Active Start: August 08, 2024 End: August 08, 2024 Dr. Chau Smallwood MD Attending Provider Active Start: August 08, 2024 End: August 08, 2024 Team Status: Active Member Role/Relationship Status Dates Dr. Len Duque MD Primary Care Provider Active Start: August 22, 2024 Chau MURRELL MD Attending Provider Active Start: August 22, 2024 Team Status: Inactive Member Role/Relationship Status Dates Dr. Len Duque MD Primary Care Provider Active Start: August 22, 2024 End: August 22, 2024 Chau MURRELL MD Attending Provider Active Start: August 22, 2024 End: August 22, 2024 Team Status: Active Member Role/Relationship Status Dates Dr. Len Duque MD Primary Care Provider Active Start: October 02, 2024 Chau MURRELL MD Attending Provider Active Start: October 02, 2024 Team Status: Inactive Member Role/Relationship Status Dates Dr. Len Duque MD Primary Care Provider Active Start: September 05, 2024 End: September 05, 2024 Dr. Chau Smallwood MD Attending Provider Active Start: September 05, 2024 End: September 05, 2024 Team Status: Active Member Role/Relationship Status Dates Dr. Len Duque MD Primary Care Provider Active Start: October 02, 2024 Chau MURRELL MD Attending Provider Active Start: October 02, 2024 Team Status: Inactive Member Role/Relationship Status Dates Dr. Len Duque MD Primary Care Provider Active Start: October 06, 2024 End: October 06, 2024 Catrina Prasad SPIRAL MACHINE OPERATOR-C Attending Provider Active Start: October 06, 2024 End: October 06, 2024 Team Status: Active Member Role/Relationship Status Dates Dr. Len Duque MD Primary Care Provider Active Start: October 27, 2024 Chau MURRELL MD Attending Provider Active Start: October 27, 2024 Team Status: Active Member Role/Relationship Status Dates Dr. Len Duque MD Primary Care Provider Active Start: November 07, 2024 Chau MURRELL MD Attending Provider Active Start: November 07, 2024 Team Status: Inactive Member Role/Relationship Status Dates Dr. Len Duque MD Primary Care Provider Active Start: October 27, 2024 End: October 27, 2024 Kirti Ortiz NP SPIRAL MACHINE OPERATOR-C Attending Provider Active Start: October 27, 2024 End: October 27, 2024 Team Status: Active Member Role/Relationship Status Dates Dr. Len Duque MD Primary Care Provider Active Start: November 07, 2024 Chau MURRELL MD Attending Provider Active Start: November 07, 2024 FOR RECORDS PERTAINING TO PATIENTS WHO [...] BE BASED ON THE PRIMARY CLINICAL RECORDS. [facility] [employer] [facility]. provides no warranty or guarantee of the accuracy or completeness of information in this document.
[2025-01-09 08:29] LABS: Hematocrit 39.6 % (40-54); Hemoglobin 13.1 g/dL (13.0-16.5); Immature Granulocytes Count 0.010 X10^3/uL (0.0-0.0); Mean Corp Hgb Conc 33.1 g/dL (32-36); Mean Corpuscular Volume 90.2 fL (80-94); Mean Platelet Vol. 10.2 fl (6.2-12.0); NRBC Flagged by Analyzer 0 % (0-5); Platelet Count 158 K/mm3 (150-450); RBC Distribution Width CV 13.6 % (11.6-14.6); RBC Distribution Width SD 45.6 fl (35.1-43.9); Red Blood Count 4.39 M/mm3 (4.6-6.2); White Blood Count 5.5 K/mm3 (4.4-11.0)
[2025-01-09 09:02] LABS: AST(SGOT) 20 U/L (<=37); Alanine Aminotransfer ALT/SGPT 10 U/L (<=46); Albumin, Serum 3.7 g/dL (3.4-4.8); Alkaline Phosphatase 79 U/L (40-129); Anion Gap 8 (5-15); BUN 32 mg/dL (4-19); BUN/Creat Ratio 30.2 RATIO (10-20); Calcium,Total 9.2 mg/dL (7.6-11.0); Carbon Dioxide 24.8 mmol/L (21.0-32.0); Chloride 101 mmol/L (98-108); Cholesterol 108 mg/dL (<=200); Globulin 2.5 g/dL (2.2-4.2); Glucose 108 mg/dL (70-99); Low Density Lipoprotein Calc. 43 mg/dL; Potassium 5.3 mmol/L (3.3-5.1); Triglycerides 42 mg/dL; Very Low Density Lipoprotein 8 mg/dL (5-40); cholesterol:hdl ratio screen 1.99
== END ==
LOC: OLS.WHLCAR 05:00
PROVIDERS: PCP Family Medicine; Visit Provider Internal Medicine
DX: E11.22 Type 2 diabetes mellitus with diabetic chronic kidney disease (principal); I12.9 Hypertensive chronic kidney disease with stage 1 through stage 4 chronic kidney disease, or unspecified chronic kidney disease; N18.30 Chronic kidney disease, stage 3 unspecified; E11.41 Type 2 diabetes mellitus with diabetic mononeuropathy; G89.29 Other chronic pain; N13.9 Obstructive and reflux uropathy, unspecified; N40.1 Benign prostatic hyperplasia with lower urinary tract symptoms
CPT/HCPCS: 36415; 80053; 80061; 83036; 85025

== ENCOUNTER → 2025-01-11 | Outpatient (REF) | payer MEDICARE, OTHER, MEDICAID, SELFPAY ==
--- OUTSIDE RECORDS SUMMARY | 2025-01-11 03:35 | XMS RPT_ITS | CCD ---
Author Organization [facility] Informat ion [facility] Care Team Providers Care Salesperson Women'S Hats Name Role Phone Len Duque Unavailable Len Duque Attending Unavailable Len Duque Primary Care Unavailable Len Duque Admitting Unavailable Len Duque Admitting Unavailable Len Duque Attending Unavailable DuqueLen barnes Primary Care Unavailable DuqueLen barnes Admitting Unavailable DuqueLen barnes Attending Unavailable Len Duque Primary Care Unavailable Len Duque Admitting Unavailable Len Duque Attending Unavailable Duque, Len Primary Care Unavailable Len Duque Unavailable Unavailable Len Duque O Unavailable Unavailable Len Duque Unavailable Unavailable Len Duque MD Unavailable Unavailable Len Duque Unavailable Unavailable Len Duque O Unavailable Unavailable Unavailable Len Duque Attending Unavailable Len Duque Referring Unavailable Len Duque Primary Care Unavailable Len Duque Attending Unavailable Len Duque Referring Unavailable Len Duque Primary Care Unavailable Len Duque Attending Unavailable Len Duque Referring Unavailable Len Duque Primary Care Unavailable Len Duque MD Primary Care Provider LEN DUQUE Primary Care Unavailable STENTZ, JOSIANE Primary Care Unavailable LEN DUQUE Attending Unavailable DUQUELEN BARNES O Referring Unavailable STENTZ, JOSIANE Primary Care Unavailable STENTZ, JOSIANE Attending Unavailable LEN DUQUE O Referring Unavailable STENTZ, JOSIANE Primary Care Unavailable Roland YOUNG, Dr. Len Cuevas Primary Care Provider Angel DIGITAL COMPUTER OPERATOR-C, Kirti Attending Provider Chau Smallwood MD Attending Provider Unavaila lizzeth Smallwood MD, Dr. Ritchie Attending Provider Osmar DIGITAL COMPUTER OPERATOR-CCatrina Attending Provider Angel DIGITAL COMPUTER OPERATOR, Kirti Attending Unavailable DuqueLen O Primary Care Unavailable Angel DIGITAL COMPUTER OPERATOR, Kirti Attending Unavailable DuqueLen kumar O Primary Care Unavailable Oleghe, Efmilobe Attending Unavailable DuqueLen barnes O Primary Care Unavailable Oleghe, Efmilobe Attending Unavailable DuqueLen kumar O Primary Care Unavailable Oleghe OLS, Efewongbe Attending Unavailabl e DuqueLen kumar O Primary Care Unavailable Oleghe OLS, Efewongbe Attending Unavailabl e Len Duque O Primary Care Unavailable Oleghe OLS, Sabihabe Attending Unavailabl e Len Duque O Primary Care Unavailable Oleghe OLS, Efewongbe Attending Unavailabl e DuqueLen barnes O Primary Care Unavailable Oleghe OLS, Efewongbe Attending Unavailabl e Len Duque O Primary Care Unavailable DuqueLen kumar O Primary Care Unavailable Catrina Prasad Attending Unavailable Allergies Allergy Classification Reported Allergen(s) Allergy Type Date of Onset Reaction(s) Facility NSAIDs (4 sources) NSAIDs; Translations: [NSAIDs] Drug Allergy [facility] Work Phone: (20 sources) nabumetone; Translations: [Relafen] Drug Allergy 5 Unknown [facility] Comment on above: KIDNEY DAMAGE (4 sources) nabumetone; Translations: [Relafen] Drug Allergy [facility] Repository (9 sources) NSAIDs; Translations: [NSAIDs] Propensity to adverse reactions to drug (disorder) [facility] Repository (7 sources) Non-steroidal anti-inflammator y agent; Translations: [NSAIDS (NON-STEROIDAL ANTI-INFLAMMATOR Y DRUG)] Drug Allergy 3 Unknown [facility] Work Phone: (5 sources) Mirtazapine; Translations: [MIRTAZAPINE] Drug Allergy 3 [facility] Work Phone: (1 source) nabumetone Drug Allergy 7 [facility] Repository Medications Current Medications Medication Drug Class(es) [...] mg PO DAILY April 28, 2016 1:00am Kmmpvknf-Hbnf-Hal 7-I-Iuml-Bosw (Osteo Bi-Flex Caplet) 1 EACH tablet (7 sources) Start: 04-28-2016 take 1 tablet by mouth once daily Tosletxz-Lsjv-Xpt 1-Q-Ergd-Bosw (Osteo Bi-Flex Caplet) 1 EACH tablet Active 1 NMA PO DAILY April 28, 2016 1:00am Start: 04-28-2016 take 1 tablet by dmitri once daily Ulsmwfxz-Lruq-Inh6-C-Isreal-Bosw (Osteo Bi -Flex Caplet) 1 EACH tablet [...] mg extended release oral capsule (8 sources) Y-yprtkp-H-aspart ate Receptor Antagonist Start: 10-01-2022 End: 04-08-2024 take 1 capsule by mouth once daily memantine (Namenda XR) 28 mg capsule,sprinkle,ER 24hr 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 90 capsule 3 04/09/2023 04/08/2024 Active Start: 02-17-2022 take 1 capsule by mo [facility] once daily Memantine HCl ER 28 [...] Active Start: 04-17-2019 take 2 tablets by [facility] once daily metFORMIN HCl ER 500 MG Oral Tablet Extended Release 24 Hour TAKE 2 TABLET Daily Quantity: 180 Refills: 3 Ordered: 13-Jan-2022 Len Duque MD Start : 17-Apr-2019 Active Start: 04-17-2019 take 4 tablets by [facility] once daily metFORMIN HCl ER 500 MG Oral Tablet Extended Release 24 Hour TAKE 4 TABLET Daily Quantity: 360 Refills: 1 Ordered: 02-Oct-2021 Len Duque MD Start : 17-Apr-2019 Active Start: 04-28-2016 take 1 tablet by [facility] once daily Metformin 500 MG tablet Active 500 mg PO DAILY April 28, 2016 1:00am take 2 tablets by mo [facility] once daily metFORMIN XR (Glucophage-XR) 500 mg [...] mg/ml ophthalmic solution (8 sources) Plasma Volume Travel Counselor Start: 03-12-2020 take 1 drop(s) into the eye(s) once daily as needed Artificial Tears 0.1-0.3 % Ophthalmic Solution INSTILL 1 DROP Daily PRN Quantity: 0 Refills: 0 Ordered: 12-Mar-2020 DO Start : 12-Mar-2020 Active 24 hr donepezil hydrochloride 10 mg / memantine hydrochloride 28 mg extended release oral capsule (2 sources) C-iuatqr-N-aspart ate Receptor Antagonist Start: 09-14-2022 End: 01-11-2023 [...] on 11-07-2024 Bilirubin.direct [Mass/Vol] 0.19 mg/dL 0.00-0.30 [facility] Bilirubin, totalOrdered By: Chau Smallwood on 11-07-2024 Bilirubin [Mass/Vol] 0.33 mg/dL 0.00-1.30 [facility] Hemoglobin A1c percentageOrd ered By: Chau Smallwood on 11-07-2024 HbA1c (Bld) [Mass fraction] 6.4 % High <5.7 [facility] Comment on above: Normal < 5.7 % Predi abetic 5.7 - 6.4 % Diabetic >or= 6.5 % Please note range changes. Laboratory - Chemistry and C hemistry - challengeOrdered By: Chau Smallwood on 11-07-2024 AST [Catalytic activity/Vol] 18 U/L <38 [facility] Serum globulin measurementOr dered By: Chau Smallwood on 11-07-2024 Globulin (S) [Mass/Vol] 2.2 g/dL 2.2-4.2 [facility] Serum or plasma alanine yepez otransferase (ALT) measurementOrdered By: Chau Smallwood on 11-07-2024 ALT [Catalytic activity/Vol] 11 U/L <47 [facility] Serum or plasma albumin lisa urement (mass/volume)Ordered By: hCau Smallwood on 11-07-2024 Albumin [Mass/Vol] 3.5 g/dL 3.4-4.8 [facility] Serum or plasma alkaline donavan sphatase measurementOrdered By: Chau Smallwood on 11-07-2024 ALP [Catalytic activity/Vol] 70 U/L 40-129 [facility] Total proteinOrdered By: Sam Smallwood on 11-07-2024 Protein [Mass/Vol] 5.7 g/dL Low 5.9-8.4 [facility] Absolute lymphocyte countOrd ered By: Chau Smallwood on 10-27-2024 Lymphocytes Auto (Unsp spec) [#/Vol] 1.40 10*3/uL 0.83-4.51 [facility] Absolute neutrophil countOrd ered By: Chau Smallwood on 10-27-2024 Neutrophils (Bld) [#/Vol] 5.1 10*3/uL 2.0-7.7 [facility] Anion gap in Serum or Plasma Ordered By: Chau Smallwood on 10-27-2024 Anion gap [Moles/Vol] 13 mmol/L 5-15 [facility] Automated lymphocyte count a s percentage of total leukocytesOrdered By: Chau Smallwood on 10-27-2024 Lymphocytes/100 WBC Auto (Unsp spec) 18.6 % Low 19-41 [facility] BUN/creatinine ratioOrdered By: Chau Smallwood on 10-27-2024 Urea nitrogen/Creatinine [Mass ratio] 24.8 mg/mg High 10-20 [facility] Basophil percentageOrdered B y: Chau Smallwood on 10-27-2024 Basophils/100 WBC (Bld) 0.4 % 0-1 [facility] Carbon dioxide, total [Moles /volume] in Central venous bloodOrdered By: Chau Smallwood on 10-27-2024 CO2 [Moles/Vol] 22.9 mmol/L 21.0-32.0 [facility] Chloride assayOrdered By: Omar Smallwood on 10-27-2024 Chloride [Moles/Vol] 103 mmol/L 98-108 [facility] Eosinophil percentageOrdered By: Chau Smallwood on 10-27-2024 Eosinophils/100 WBC (Bld) 1.9 % 0-5 [facility] Erythrocyte distribution wid th ratioOrdered By: Chau Smallwood on 10-27-2024 Erythrocyte distribution width (RBC) [Ratio] 13.2 % 11.6-14.6 [facility] Erythrocyte distribution wid th standard deviationOrdered By: derrell Smallwood on 10-27-2024 Erythrocyte distribution width (RBC) [Ratio] 43.2 fl 35.1-43.9 [facility] Glomerular filtration rate ( GFR) estimation/1.73 sq m using serum, plasma, or whole bOrdered By: Chau Smallwood on 10-27-2024 GFR/1.73 sq M.predicted among non-blacks MDRD (S/P/Bld) [Vol rate/Area] 55 mL/min/{1.73_m2} Low >60 [facility] Comment on above: mL/min/1.73m2 CKD-EP I Creatinine Equation (2020) Hematocrit Auto (Bld) [Volum e fraction]Ordered By: Chau Smallwood on 10-27-2024 Hematocrit (Bld) [Volume fraction] 39.9 % Low 40-54 [facility] Hemoglobin measurementOrdere d By: Chau Smallwood on 10-27-2024 Hemoglobin (Bld) [Mass/Vol] 13.5 g/dL 13.0-16.5 [facility] Immature granulocytes/100 WB C Auto (Bld)Ordered By: Chau Smallwood on 10-27-2024 Immature granulocytes/100 WBC (Bld) 0.400 % 0.0-0.9 [facility] Comment on above: IG% - Immature Granu locytes (promyelocytes, myelocytes and metamyelocytes) > 1% indicates that a LEFT SHIFT is Present. MCV (mean corpuscular volume ) determinationOrdered By: Chau Smallwood on 10-27-2024 MCV (RBC) [Entitic vol] 89.3 fL 80-94 [facility] Mean corpuscular hemoglobin (MCH) determinationOrdered By: efeaveryernie Smallwood on 10-27-2024 MCH (RBC) [Entitic mass] 30.2 pg 27.0-32.0 [facility] Mean corpuscular hemoglobin concentration (MCHC) determinationOrdered By: Chau Smallwood on 10-27-2024 MCHC (RBC) [Mass/Vol] 33.8 g/dL 32-36 [facility] Mean platelet volume determi nationOrdered By: derrell Smallwood on 10-27-2024 Platelet mean volume (Bld) [Entitic vol] 10.3 fL 6.2-12.0 [facility] Monocyte percentageOrdered B y: Chau Smallwood on 10-27-2024 Monocytes/100 WBC (Bld) 10.9 % High 0-10 [facility] Neutrophil percentageOrdered By: Chau Smallwood on 10-27-2024 Neutrophils/100 WBC (Bld) 67.8 % 47-70 [facility] Nucleated red blood cell per centageOrdered By: Chau Smallwood on 10-27-2024 Nucleated RBC/100 WBC (Bld) [Ratio] 0 % 0-5 [facility] Platelet countOrdered By: Omar derrell Mychalcarmelo on 10-27-2024 Platelets (Bld) [#/Vol] 149 10*3/uL Low 150-450 [facility] Potassium measurement (mass/ volume)Ordered By: Omarefealinaernie Hortamalgentry on 10-27-2024 Potassium (Unsp spec) [Mass/Vol] 4.5 mmol/L 3.3-5.1 [facility] RBC Auto (Bld) [#/Vol]Ordere d By: Chau Smallwood on 10-27-2024 RBC (Bld) [#/Vol] 4.47 10*6/uL Low 4.6-6.2 [facility] Serum creatinine measurement (mass/volume)Ordered By: Omarefeyessy Mychalmalgentry on 10-27-2024 Creatinine [Mass/Vol] 1.30 mg/dL High 0.70-1.20 [facility] Serum glucose measurement (m ass/volume)Ordered By: Omarefeyessy Mychalmalgentry on 10-27-2024 Glucose [Mass/Vol] 95 mg/dL 70-99 [facility] Serum or plasma calcium lisa urement (mass/volume)Ordered By: Chau Mychalmalgentry on 10-27-2024 Calcium [Mass/Vol] 9.3 mg/dL 7.6-11.0 [facility] Serum or plasma urea nitroge n measurement (mass/volume)Ordered By: Omarefealinaernie Hortamalgentry on 10-27-2024 Urea nitrogen [Mass/Vol] 32 mg/dL High 4-19 [facility] Sodium levelOrdered By: Erasmo krishnamurthy Mychalamlgentry on 10-27-2024 Sodium [Moles/Vol] 138 mmol/L 133-145 [facility] White blood cell (WBC) count Ordered By: Omarefeyessy Mychalmalgentry on 10-27-2024 WBC (Bld) [#/Vol] 7.5 10*3/uL 4.4-11.0 [facility] Anion gap in Serum or Plasma Ordered By: Chau Smallwood on 10-02-2024 Anion gap [Moles/Vol] 11 mmol/L 5-15 [facility] BUN/creatinine ratioOrdered By: Chau Smallwood on 10-02-2024 Urea nitrogen/Creatinine [Mass ratio] 19.5 mg/mg 10-20 [facility] Carbon dioxide, total [Moles /volume] in Central venous bloodOrdered By: Chau Smallwood on 10-02-2024 CO2 [Moles/Vol] 24.2 mmol/L 21.0-32.0 [facility] Chloride assayOrdered By: Omar Smallwood on 10-02-2024 Chloride [Moles/Vol] 102 mmol/L 98-108 [facility] Glomerular filtration rate ( GFR) estimation/1.73 sq m using serum, plasma, or whole bOrdered By: Chau Smallwood on 10-02-2024 GFR/1.73 sq M.predicted among non-blacks MDRD (S/P/Bld) [Vol rate/Area] 59 mL/min/{1.73_m2} Low >60 [facility] Comment on above: mL/min/1.73m2 CKD-EP I Creatinine Equation (2020) Potassium measurement (mass/ volume)Ordered By: Chau Smallwood on 10-02-2024 Potassium (Unsp spec) [Mass/Vol] 4.8 mmol/L 3.3-5.1 [facility] Serum creatinine measurement (mass/volume)Ordered By: Chau Smallwood on 10-02-2024 Creatinine [Mass/Vol] 1.22 mg/dL High 0.70-1.20 [facility] Serum glucose measurement (m ass/volume)Ordered By: Chau Smallwood on 10-02-2024 Glucose [Mass/Vol] 119 mg/dL High 70-99 [facility] Serum or plasma calcium lisa urement (mass/volume)Ordered By: Chau Smallwood on 10-02-2024 Calcium [Mass/Vol] 9.5 mg/dL 7.6-11.0 [facility] Serum or plasma urea nitroge n measurement (mass/volume)Ordered By: Chau Smallwood on 10-02-2024 Urea nitrogen [Mass/Vol] 24 mg/dL High 4-19 [facility] Sodium levelOrdered By: Erasmo krishnamurthy Mychalmalgentry on 10-02-2024 Sodium [Moles/Vol] 137 mmol/L 133-145 [facility] Absolute lymphocyte countOrd ered By: Chau Hortamalgentry on 08-22-2024 Lymphocytes Auto (Unsp spec) [#/Vol] 2.18 10*3/uL 0.83-4.51 [facility] Absolute neutrophil countOrd ered By: Chau Hortamalgentry on 08-22-2024 Neutrophils (Bld) [#/Vol] 3.9 10*3/uL 2.0-7.7 [facility] Anion gap in Serum or Plasma Ordered By: Chau Smallwood on 08-22-2024 Anion gap [Moles/Vol] 11 mmol/L 5-15 [facility] Automated lymphocyte count a s percentage of total leukocytesOrdered By: Chau Hortamalgentry on 08-22-2024 Lymphocytes/100 WBC Auto (Unsp spec) 31.1 % 19-41 [facility] BUN/creatinine ratioOrdered By: Chau Hortamalgentry on 08-22-2024 Urea nitrogen/Creatinine [Mass ratio] 23.3 mg/mg High 10-20 [facility] Basophil percentageOrdered B y: Chau Hortamalgentry on 08-22-2024 Basophils/100 WBC (Bld) 0.6 % 0-1 [facility] Bilirubin, totalOrdered By: Chau Smallwood on 08-22-2024 Bilirubin [Mass/Vol] 0.42 mg/dL 0.00-1.30 [facility] Calculated very low density lipoprotein (VLDL) cholesterol measurementOrdered By: Chau Smallwood on 08-22-2024 Calculated very low density lipoprotein (VLDL) cholesterol measurement 11 mg/dL 5-40 [facility] Carbon dioxide, total [Moles /volume] in Central venous bloodOrdered By: Chau Smallwood on 08-22-2024 CO2 [Moles/Vol] 25.7 mmol/L 21.0-32.0 [facility] Chloride assayOrdered By: Omar Smallwood on 08-22-2024 Chloride [Moles/Vol] 99 mmol/L 98-108 [facility] Eosinophil percentageOrdered By: Chau Smallwood on 08-22-2024 Eosinophils/100 WBC (Bld) 2.0 % 0-5 [facility] Erythrocyte distribution wid th ratioOrdered By: Chau Smallwood on 08-22-2024 Erythrocyte distribution width (RBC) [Ratio] 13.0 % 11.6-14.6 [facility] Erythrocyte distribution wid th standard deviationOrdered By: Chau Smallwood on 08-22-2024 Erythrocyte distribution width (RBC) [Ratio] 43.0 fl 35.1-43.9 [facility] Glomerular filtration rate ( GFR) estimation/1.73 sq m using serum, plasma, or whole bOrdered By: Chau Smallwood on 08-22-2024 GFR/1.73 sq M.predicted among non-blacks MDRD (S/P/Bld) [Vol rate/Area] 52 mL/min/{1.73_m2} Low >60 [facility] Comment on above: mL/min/1.73m2 CKD-EP I Creatinine Equation (2020) Hematocrit Auto (Bld) [Volum e fraction]Ordered By: Chau Smallwood on 08-22-2024 Hematocrit (Bld) [Volume fraction] 41.0 % 40-54 [facility] Hemoglobin A1c percentageOrd ered By: Chau Smallwood on 08-22-2024 HbA1c (Bld) [Mass fraction] 6.5 % High <5.7 [facility] Comment on above: Normal < 5.7 % Predi abetic 5.7 - 6.4 % Diabetic >or= 6.5 % Please note range changes. Hemoglobin measurementOrdere d By: Chau Smallwood on 08-22-2024 Hemoglobin (Bld) [Mass/Vol] 13.7 g/dL 13.0-16.5 [facility] Immature granulocytes/100 WB C Auto (Bld)Ordered By: Chau Smallwood on 08-22-2024 Immature granulocytes/100 WBC (Bld) 0.300 % 0.0-0.9 [facility] Comment on above: IG% - Immature Granu locytes (promyelocytes, myelocytes and metamyelocytes) > 1% indicates that a LEFT SHIFT is Present. LDL calc ser/plasOrdered By: Chau Smallwood on 08-22-2024 Cholesterol in LDL [Mass/Vol] 42 mg/dL [facility] Comment on above: Exizmmytrt=761-329 m g/dL & Higher Jmyn=022 mg/dL or greater Laboratory - Chemistry and C hemistry - challengeOrdered By: Chau Smallwood on 08-22-2024 AST [Catalytic activity/Vol] 20 U/L <38 [facility] MCV (mean corpuscular volume ) determinationOrdered By: Chau Smallwood on 08-22-2024 MCV (RBC) [Entitic vol] 89.9 fL 80-94 [facility] Mean corpuscular hemoglobin (MCH) determinationOrdered By: derrell Smallwood on 08-22-2024 MCH (RBC) [Entitic mass] 30.0 pg 27.0-32.0 [facility] Mean corpuscular hemoglobin concentration (MCHC) determinationOrdered By: Chau Smallwood on 08-22-2024 MCHC (RBC) [Mass/Vol] 33.4 g/dL 32-36 [facility] Mean platelet volume determi nationOrdered By: Chau Smallwood on 08-22-2024 Platelet mean volume (Bld) [Entitic vol] 9.7 fL 6.2-12.0 [facility] Monocyte percentageOrdered B y: Chau Smallwood on 08-22-2024 Monocytes/100 WBC (Bld) 10.3 % High 0-10 [facility] Neutrophil percentageOrdered By: efeaveryernie Smallwood on 08-22-2024 Neutrophils/100 WBC (Bld) 55.7 % 47-70 [facility] Nucleated red blood cell per centageOrdered By: Chau Smallwood on 08-22-2024 Nucleated RBC/100 WBC (Bld) [Ratio] 0 % 0-5 [facility] Platelet countOrdered By: Omar Smallwood on 08-22-2024 Platelets (Bld) [#/Vol] 180 10*3/uL 150-450 [facility] Potassium measurement (mass/ volume)Ordered By: Chau Smallwood on 08-22-2024 Potassium (Unsp spec) [Mass/Vol] 4.5 mmol/L 3.3-5.1 [facility] RBC Auto (Bld) [#/Vol]Ordere d By: Chau Smallwood on 08-22-2024 RBC (Bld) [#/Vol] 4.56 10*6/uL Low 4.6-6.2 [facility] Screening total cholesterol/ high density lipoprotein (HDL) cholesterol ratioOrdered By: Chau Smallwood on 08-22-2024 Cholesterol.total/Cho lesterol in HDL [Mass ratio] 1.90 {ratio} [facility] Serum creatinine measurement (mass/volume)Ordered By: Chau Smallwood on 08-22-2024 Creatinine [Mass/Vol] 1.35 mg/dL High 0.70-1.20 [facility] Serum globulin measurementOr dered By: Chau Smallwood on 08-22-2024 Globulin (S) [Mass/Vol] 2.5 g/dL 2.2-4.2 [facility] Serum glucose measurement (m ass/volume)Ordered By: Chau Smallwood 08-22-2024 Glucose [Mass/Vol] 117 mg/dL High 70-99 [facility] Serum or plasma alanine yepez otransferase (ALT) measurementOrdered By: Chau Smallwood on 08-22-2024 ALT [Catalytic activity/Vol] 13 U/L <47 [facility] Serum or plasma albumin lisa urement (mass/volume)Ordered By: Chau Smallwood on 08-22-2024 Albumin [Mass/Vol] 4.2 g/dL 3.4-4.8 [facility] Serum or plasma albumin/glob ulin mass ratioOrdered By: Chau Smallwood on 08-22-2024 Albumin/Globulin [Mass ratio] 1.7 {ratio} 0.9-2.4 [facility] Serum or plasma alkaline donavan sphatase measurementOrdered By: Chau Smallwood on 08-22-2024 ALP [Catalytic activity/Vol] 91 U/L 40-129 [facility] Serum or plasma calcium lisa urement (mass/volume)Ordered By: Chau Smallwood on 08-22-2024 Calcium [Mass/Vol] 9.7 mg/dL 7.6-11.0 [facility] Serum or plasma cholesterol in HDL measurement (mass/volume)Ordered By: Chau Smallwood on 08-22-2024 Cholesterol in HDL [Mass/Vol] 59 mg/dL >40 [facility] Comment on above: National Cholesterol Education Program (NCEP) guidelines:<40 mg/dL: Low HDL-cholesterol (major risk factor for CHD)>= 60 mg/dL: High HDL-cholesterol (negative risk factor for CHD)HDL-cholesterol is affected by a number of factors, e.g. smoking, exercise, hormones, sex and age. Serum or plasma cholesterol measurement (mass/volume)Ordered By: Chau Smallwood on 08-22-2024 Cholesterol [Mass/Vol] 112 mg/dL <201 [facility] Comment on above: Cholesterol level, D esirable <200 mg/dLBorderline high cholesterol 200-239 mg/dLHigh cholesterol >=240 mg/dLRecommendations of the NCEP Adult Treatment Panel for the following risk-cutoff thresholds for the [place] population. Serum or plasma urea nitroge n measurement (mass/volume)Ordered By: Chau Smallwood on 08-22-2024 Urea nitrogen [Mass/Vol] 32 mg/dL High 4-19 [facility] Sodium levelOrdered By: Erasmo Smallwood on 08-22-2024 Sodium [Moles/Vol] 136 mmol/L 133-145 [facility] Total proteinOrdered By: Sam Smallwood on 08-22-2024 Protein [Mass/Vol] 6.7 g/dL 5.9-8.4 [facility] Triglycerides measurementOrd ered By: Chau Smallwood on 08-22-2024 Triglyceride [Mass/Vol] 55 mg/dL <199 [facility] Comment on above: The drugs N-Acetylcy steine and Metamizole may falsely depress this assay. Normal range: <150 mg/dLBorderline High: 150-199 mg/dLHigh: 200-499 mg/dLVery High: >500 mg/dL White blood cell (WBC) count Ordered By: Chau Smallwood on 08-22-2024 WBC (Bld) [#/Vol] 7.0 10*3/uL 4.4-11.0 [facility] CBC (INCLUDES DIFF/PLT)on Basophils (Bld) [#/Vol] 0.049 10*3/uL Normal 0-200 [facility] Comment on above: Performed By: #### 9 27, 6399, 35000, 7600, [id number], [id number] #### [facility] [place] [address] Electrical Continuity Inspector: Nash Ames MD Basophils/100 WBC (Bld) 0.6 % Normal [facility] Comment on above: Performed By: #### 9 27, 6399, 33093, 7600, 19165, #### [facility] [place] [address] Electrical Continuity Inspector: Nash Ames MD Eosinophils (Bld) [#/Vol] 0.251 10*3/uL Normal 15-500 [facility] Comment on above: Performed By: #### 9 27, 6399, 16328, 7600, 77355, [id number] #### [facility] [place] [address] Electrical Continuity Inspector: Nash Ames MD Eosinophils/100 WBC (Bld) 3.1 % Normal [facility] Comment on above: Performed By: #### 9 27, 6399, 58201, 7600, 38087, 97310 #### [facility] [place] [address] Electrical Continuity Inspector: Nash Ames MD Erythrocyte distribution width (RBC) [Ratio] 13.0 % Normal 11.0-15.0 [facility] Comment on above: Performed By: #### 9 27, 6399, 47760, 7600, 92941, #### [facility] of [address], [address] [place] [address] Electrical Continuity Inspector: Nash Ames MD Hematocrit (Bld) [Volume fraction] 47.6 % Normal 38.5-50.0 [facility] Comment on above: Performed By: #### 9 27, 6399, 02581, 7600, 72847, #### [facility] of [address], [address] [place] [address] Electrical Continuity Inspector: Nash Ames MD Hemoglobin (Bld) [Mass/Vol] 15.3 g/dL Normal 13.2-17.1 [facility] Comment on above: Performed By: #### 9 27, 6399, 51773, 7600, [address], #### [facility] [place] [address] Electrical Continuity Inspector: Nash Ames MD Lymphocytes (Bld) [#/Vol] 1.855 10*3/uL Normal 850-3900 [facility] Comment on above: Performed By: #### 9 27, 6399, 70215, 7600, 56643, #### [facility] [address], [address] [place] [address] Electrical Continuity Inspector: Nash Ames MD Lymphocytes/100 WBC (Bld) 22.9 % Normal [facility] Comment on above: Performed By: #### 9 27, 6399, 59816, 7600, 49042, #### [facility] [address], [address] [place] [address] Electrical Continuity Inspector: Nash Ames MD MCH (RBC) [Entitic mass] 30.1 pg Normal 27.0-33.0 [facility] Comment on above: Performed By: #### 9 27, 6399, 08292, 7600, 06599, #### [facility] [address], [address] [place] [address] Electrical Continuity Inspector: Nash Ames MD MCHC (RBC) [Mass/Vol] 32.1 [...] condition. Performed By: #### 9 27, 6399, 43745, 7600, 22655, #### [facility] [address], [address] [place] [address] Electrical Continuity Inspector: Nash Ames MD MCV (RBC) [Entitic vol] 93.5 fL Normal 80.0-100.0 [facility] Comment on above: Performed By: #### 9 , 6399, 17565, 7600, 39783, #### [facility] [place] [address] Electrical Continuity Inspector: Nash Ames MD Monocytes (Bld) [#/Vol] 0.826 10*3/uL Normal 200-950 [facility] Comment on above: Performed By: #### 9 27, 63, 54029, 7600, 98163, #### [facility] [place] [address] Electrical Continuity Inspector: Nash Ames MD Monocytes/100 WBC (Bld) 10.2 % Normal [facility] Comment on above: Performed By: #### 9 27, 6399, 50397, 7600, 75779, #### [facility] [place] [address] Electrical Continuity Inspector: Nash Ames MD Neutrophils (Bld) [#/Vol] 5.119 10*3/uL Normal 5937-0579 [facility] Comment on above: Performed By: #### 9 , 6399, 65203, 7600, 31475, #### [facility] [address] [place] [address] Electrical Continuity Inspector: Nash Ames MD Neutrophils/100 WBC (Bld) 63.2 % Normal [facility] Comment on above: Performed By: #### 9 27, 6399, 96460, 7600, 40325, 76038 #### [facility] [place] [address] Electrical Continuity Inspector: Nash Ames MD Platelet mean volume (Bld) [Entitic vol] 9.7 fL Normal 7.5-12.5 [facility] Comment on above: Performed By: #### 9 27, 6399, 58990, 7600, 30559, #### [facility] [place] [address] Electrical Continuity Inspector: Nash Ames MD Platelets (Bld) [#/Vol] 180 10*3/uL Normal 140-400 [facility] Comment on above: Performed By: #### 9 27, 6399, 23004, 7600, 88272, #### [facility] [place] [address] Electrical Continuity Inspector: Nash Ames MD RBC (Bld) [#/Vol] 5.09 10*6/uL Normal 4.20-5.80 [facility] Comment on above: Performed By: #### 9 27, 6399, 21413, 7600, 33493, 98783 #### [facility] [place] [address] Electrical Continuity Inspector: Nash Ames MD WBC (Bld) [#/Vol] 8.1 10*3/uL Normal 3.8-10.8 [facility] Comment on above: Performed By: #### 9 27, 6399, 59463, 7600, 46877, 08323 #### [facility] [place] [address] Electrical Continuity Inspector: Nash Ames MD COMPREHENSIVE METABOLIC PANE L W/ANION GAPon 07-16-2024 Albumin [Mass/Vol] 4.5 g/dL Normal 3.6-5.1 [facility] Comment on above: Performed By: #### 9 27, 6399, 97841, 7600, 12726, 21232 #### [facility] [place] [address] Electrical Continuity Inspector: Nash Ames MD ALP [Catalytic activity/Vol] 70 U/L Normal 35-144 [facility] Comment on above: Performed By: #### 9 27, 6399, 90316, 7600, 98898, #### [facility] [place] [address] Electrical Continuity Inspector: Nash Ames MD ALT [Catalytic activity/Vol] 14 U/L Normal 9-46 [facility] Comment on above: Performed By: #### 9 27, 6399, 38431, 7600, 75371, #### [facility] [place] [address] Electrical Continuity Inspector: Nash Ames MD AST [Catalytic activity/Vol] 16 U/L Normal 10-35 [facility] Comment on above: Performed By: #### 9 27, 6399, 66405, 7600, 99422, 38125 #### [facility] [place] [address] Electrical Continuity Inspector: Nash Ames MD Bilirubin [Mass/Vol] 0.7 mg/dL Normal 0.2-1.2 [facility] Comment on above: Performed By: #### 9 27, 6399, 39318, 7600, 22431, #### [facility] [place] [address] Electrical Continuity Inspector: Nash Ames MD Calcium [Mass/Vol] 9.8 mg/dL Normal 8.6-10.3 [facility] Comment on above: Performed By: #### 9 27, 6399, 26059, 7600, 68880, 34459 #### [facility] [place] [address] Electrical Continuity Inspector: Nash Ames MD Chloride [Moles/Vol] 98 mmol/L Normal 98-110 [facility] Comment on above: Performed By: #### 9 27, 63, 71324, 7600, 01091, #### [facility] [place] [address] Electrical Continuity Inspector: Nash Ames MD CO2 [Moles/Vol] 30 mmol/L Normal 20-32 [facility] Comment on above: Performed By: #### 9 27, 63, 99195, 7600, 26371, #### [facility] [place] [address] Electrical Continuity Inspector: Nash Ames MD Creatinine [Mass/Vol] 1.18 mg/dL Normal 0.70-1.[address] [facility] Comment on above: Performed By: #### 9 27, 63, 16204, 7600, 27578, #### [facility] [place] [address] Electrical Continuity Inspector: Nash Ames MD ELECTROLYTE BALANCE 8 mmol/L (calc) Normal 7-17 [facility] Comment on above: Performed By: #### 9 27, 63, 09276, 7600, 37153, #### [facility] [place] [address] Electrical Continuity Inspector: Nash Ames MD GFR/1.73 sq M.predicted among non-blacks MDRD (S/P/Bld) [Vol rate/Area] 62 mL/min/{1.73_m2} Normal > OR = 60 [facility] Comment on above: Performed By: #### 9 27, 63, 57463, 7600, 36114, 65671 #### [facility] [place] [address] Electrical Continuity Inspector: Nash Ames MD Glucose [Mass/Vol] 97 mg/dL Normal 65-99 [facility] Comment on above: Result Comment: Fasting reference interval Performed By: #### 9 27, 6399, 24545, 7600, 62644, #### [facility] [place] [address] Electrical Continuity Inspector: Nash Ames MD Potassium [Moles/Vol] 4.8 mmol/L Normal 3.5-5.[address] [facility] Comment on above: Performed By: #### 9 27, 6399, 26721, 7600, 18305, #### [facility] [place] [address] Electrical Continuity Inspector: Nash Ames MD Protein [Mass/Vol] 7.1 g/dL Normal 6.1-8.1 [facility] Comment on above: Performed By: #### 9 27, 6399, 36328, 7600, 13560, #### [facility] [place] [address] Electrical Continuity Inspector: Nash Ames MD Sodium [Moles/Vol] 136 mmol/L Normal 135-146 [facility] Comment on above: Performed By: #### 9 27, 6399, 79676, 7600, 50191, #### [facility] [place] [address] Electrical Continuity Inspector: Nash Ames MD Urea nitrogen [Mass/Vol] 23 mg/dL Normal 7-25 [facility] Comment on above: Performed By: #### 9 27, 6399, 09198, 7600, 38892, #### [facility] [place] [address] Electrical Continuity Inspector: Nash Ames MD HEMOGLOBIN A1c WITH eAGon eAG (mmol/L) 7.4 mmol/L Normal [facility] Comment on above: Performed By: #### 9 27, 6399, 98483, 7600, 82585, 90664 #### [facility] [place] [address] Electrical Continuity Inspector: Nash Ames MD HbA1c (Bld) [Mass fraction] [...] children. Performed By: #### 9 27, 6399, 80784, 7600, 76164, 29673 #### [facility] [address], [address] [place] [address] Electrical Continuity Inspector: Nash Ames MD Magnesium [Mass/Vol] 134 mg/dL Normal [facility] Comment on above: Performed By: #### 9 27, 6399, 84169, 7600, 07464, 50591 #### [facility] [address], [address] [place] [address] Electrical Continuity Inspector: Nash Ames MD LIPID PANEL, [facility] 05- Cholesterol [Mass/Vol] 126 mg/dL Normal <200 [facility] Comment on above: Order Comment: FASTI NG:YES FASTING: YES Performed By: #### 9 27, 6399, 26123, 7600, 90741, 16396 #### [facility] [address], [address] [place] [address] Electrical Continuity Inspector: Nash Ames MD Cholesterol in HDL [Mass/Vol] 62 mg/dL Normal > OR = 40 [facility] Comment on above: Order Comment: FASTI NG:YES FASTING: YES Performed By: #### 9 27, 6399, 32538, 7600, 45586, 37507 #### [facility] [address], [address] [place] [address] Electrical Continuity Inspector: Nash Ames MD Cholesterol in LDL [Mass/Vol] [...] LDL-C. Timothy SS et al. VIRGILIO. 2013;310(19): 0119-3369 (http://education.RunnerPlace.Right Relevance/faq/RLK560) Performed By: #### 9 27, 6399, 34323, 7600, 64409, 34317 #### [facility] [address], [address] [place] [address] Electrical Continuity Inspector: Nash Ames MD Cholesterol.total/Cho lesterol in HDL [Mass ratio] 2.0 {ratio} Normal <5.0 [facility] Comment on above: Order Comment: FASTI NG:YES FASTING: YES Performed By: #### 9 27, 6399, 84721, 7600, 25946, 26273 #### [facility] [address], [address] [place], [place] [id number] Electrical Continuity Inspector: Nash Ames MD NON HDL CHOLESTEROL 64 mg/dL (calc) Normal <130 [facility] Comment on above: Order Comment: FASTI NG:YES FASTING: YES Result Comment: For patients with diabetes plus 1 major ASCVD risk factor, treating to a non-HDL-C goal of <100 mg/dL (LDL-C of <70 mg/dL) is considered a therapeutic option. Performed By: #### 9 27, 6399, 75742, 7600, 04665, 41282 #### [facility] [address], [address] [place], [place] [address] Electrical Continuity Inspector: Nash Ames MD Triglyceride [Mass/Vol] 92 mg/dL Normal <150 [facility] Comment on above: Order Comment: FASTI NG:YES FASTING: YES Performed By: #### 9 27, 6399, 90236, 7600, 57629, 77776 #### [facility] [place] [address] [place] [address] Electrical Continuity Inspector: Nash Ames MD PSA, TOTAL, MONITORINGon PSA, TOTAL, MONITORING 0.04 ng/mL Normal < OR = 4.00 [facility] Comment on above: Result Comment: The total PSA value from this assay system is standardized against the WHO standard. The test result will be approximately 20% lower when compared to the equimolar-standardized total PSA ([place]). Comparison of serial PSA results should be interpreted with this fact in mind. This test was performed using the Siemens chemiluminescent method. Values obtained from different assay methods cannot be used interchangeably. PSA levels, regardless of value, should not be interpreted as absolute evidence of the presence or absence of disease. Performed By: #### 9 27, 4199, 24282, 7600, 93253, #### [facility] [place] [address] Electrical Continuity Inspector: Nash Ames MD TSH W/REFLEX TO FT4on 2024 TSH W/REFLEX TO FT4 1.70 mIU/L Normal 0.40-4.50 [facility] Comment on above: Performed By: #### 9 27, 8885, 12051, 7600, 43986, #### [facility] [place] [address] Electrical Continuity Inspector: Nash Ames MD VITAMIN B12on 07-16-2024 Cobalamin [...] symptoms. Performed By: #### 9 27, 6399, 35563, 7600, 77982, 93447 #### [facility] [address], [address] [place] [address] Electrical Continuity Inspector: Nash Ames MD CBC panel Auto (Bld)on 01-19 Erythrocyte distribution width (RBC) [Ratio] 13.4 % Normal 11.5-14.5 [facility] Comment on above: Performed By: #### 5 8410-2 #### CECY WONG (71661) [facility] ([facility]) [address] [place] [address] Hematocrit (Bld) [Volume fraction] 43.8 % Normal 41.0-52.0 [facility] Comment on above: Performed By: #### 5 8410-2 #### CECY WONG (20050) [facility] ([facility]) [address] [place] [address] 00467 Hemoglobin (Bld) [Mass/Vol] 14.1 g/dL Normal 13.5-17.5 [facility] Comment on above: Performed By: #### 5 8410-2 #### CECY WONG (67551) [facility] ([facility]) [address] [place] [address] 77427 MCH (RBC) [Entitic mass] 29.7 pg Normal 26.0-34.0 [facility] Comment on above: Performed By: #### 5 8410-2 #### CECY WONG (31479) [facility] ([facility]) [address] [place] [address] 08717 MCHC (RBC) [Mass/Vol] 32.2 g/dL Normal 32.0-36.0 [facility] Comment on above: Performed By: #### 5 8410-2 #### CECY WONG (07536) [facility] ([facility]) [address] [place] [address] 69108 MCV (RBC) [Entitic vol] 92 fL Normal 80-100 [facility] Comment on above: Performed By: #### 5 8410-2 #### CECY WONG (49730) [facility] ([facility]) [address] [place] [address] 17843 Nucleated RBC/100 WBC (Bld) [Ratio] 0.0 /100 WBCs Normal 0.0-0.0 [facility] Comment on above: Performed By: #### 5 8410-2 #### CECY WONG (21165) [facility] ([facility]) [address] [place] [address] 92412 Platelets (Bld) [#/Vol] 197 x10*3/uL Normal 150-450 [facility] Comment on above: Performed By: #### 5 8410-2 #### CECY WONG (37076) [facility] ([facility]) [address] [place] [address] 61242 RBC (Bld) [#/Vol] 4.74 x10*6/uL Normal 4.50-5.90 [facility] Comment on above: Performed By: #### 5 8410-2 #### CECY WONG (96853) [facility] ([facility]) [address] [place] [address] 89577 WBC (Bld) [#/Vol] 8.0 x10*3/uL Normal 4.4-11.3 [facility] Comment on above: Performed By: #### 5 8410-2 #### CECY WONG (60874) [facility] ([facility]) [address] [place] [address] 20472 Cobalaminson 01-20-2024 Cobalamin (Vitamin B12) [Mass/Vol] 257 pg/mL Normal 211-911 [facility] Comment on above: Performed By: #### 2 132-9 #### HOLDEN Larson (19254) [facility] ([facility]) [id number] [place] [address]3969 Comprehensive metabolic 2000 panelon 01-20-2024 Albumin BCP dye [Mass/Vol] 4.0 g/dL Normal 3.4-5.0 [facility] Comment on above: Performed By: #### 2 4323-8 #### CECY WONG (47933) [facility] ([facility]) [address] [place] [address] 09217 ALP [Catalytic activity/Vol] 73 U/L Normal 33-136 [facility] Comment on above: Performed By: #### 2 4323-8 #### CECY WONG (39746) [facility] ([facility]) [address] [place] [address] ALT With P-5'-P [Catalytic activity/Vol] 11 U/L Normal 10-52 [facility] Comment on above: Result Comment: [place] ents treated with Sulfasalazine may generate falsely decreased results for ALT. Performed By: #### 2 4323-8 #### CECY WONG (34339) [facility] ([facility]) [address] [place] [address] Anion gap [Moles/Vol] 13 mmol/L Normal 10-20 [facility] Comment on above: Performed By: #### 2 432-8 #### CECY WONG (56889) [facility] ([facility]) [address] [place] [address] AST With P-5'-P [Catalytic activity/Vol] 12 U/L Normal 9-39 [facility] Comment on above: Performed By: #### 2 4322-8 #### CECY WONG (51436) [facility] ([facility]) [address] [place] [address] Bilirubin [Mass/Vol] 0.6 mg/dL Normal 0.0-1.2 [facility] Comment on above: Performed By: #### 2 432-8 #### CECY WONG (92958) [facility] ([facility]) [address] [place] [address] Calcium [Mass/Vol] 9.5 mg/dL Normal 8.6-10.3 [facility] Comment on above: Performed By: #### 2 4323-8 #### CECY WONG (64934) [facility] ([facility]) [address] [place] [address] Chloride [Moles/Vol] 99 mmol/L Normal 98-107 [facility] Comment on above: Performed By: #### 2 4323-8 #### CECY WONG (10939) [facility] ([facility]) [address] [place] [address] CO2 [Moles/Vol] 29 mmol/L Normal 21-32 [facility] Comment on above: Performed By: #### 2 4323-8 #### CECY WONG (42180) [facility] ([facility]) [address] [place] [address] 54898 Creatinine [Mass/Vol] 1.46 mg/dL High 0.50-1.30 [facility] Comment on above: Performed By: #### 2 4323-8 #### CECY WONG (33124) [facility] ([facility]) [address] [place] [address] 83560 Glomerular filtration rate/1.73 sq M.predicted 48 mL/min/1.73m*2 Low >60 [facility] Comment on above: Result Comment: Calc ulations of estimated GFR are performed using the 2020 CKD-EPI Study Refit equation without the race variable for the IDMS-Traceable creatinine methods. https://jasn.asnjournals.org/content/early//ASN.223271 9687 Performed By: #### 2 432-8 #### CECY WONG (82777) [facility] ([facility]) [address] [place] [address] 42972 Glucose [Mass/Vol] 100 mg/dL High 74-99 [facility] Comment on above: Performed By: #### 2 4323-8 #### CECY WONG (35305) [facility] ([facility]) [address] [place] [address] 88155 Potassium [Moles/Vol] 5.0 mmol/L Normal 3.5-5.3 [facility] Comment on above: Performed By: #### 2 4323-8 #### CECY WONG (75158) [facility] ([facility]) [address] [place] [address] 23367 Protein [Mass/Vol] 6.4 g/dL Normal 6.4-8.2 [facility] Comment on above: Performed By: #### 2 4323-8 #### CECY WONG (45671) [facility] ([facility]) [address] [place] [address] Sodium [Moles/Vol] 136 mmol/L Normal 136-145 [facility] Comment on above: Performed By: #### 2 4323-8 #### CECY WONG (46128) [facility] ([facility]) [address] [place] [address] Urea nitrogen [Mass/Vol] 37 mg/dL High 6-23 [facility] Comment on above: Performed By: #### 2 4323-8 #### CECY WONG (85853) [facility] ([facility]) [facility] [place] [address] HbA1c (Bld) [Mass fraction]o n 01-20-2024 Average glucose Estimated from glycated hemoglobin (Bld) [Mass/Vol] 131 mg/dL Normal Not Established [facility] Comment on above: Order Comment: Diagn osis of Diabetes-Adults Non-Diabetic: < or = 5.6% Increased risk for developing diabetes: 5.7-6.4% Diagnostic of diabetes: > or = 6.5% Performed By: #### 4 548-4 #### HOLDEN Larson (37009) [facility] ([facility]) [address] [place], [place] [address] Hemoglobin A1c/Hemoglobin.to myles 01-20-2024 HbA1c (Bld) [Mass fraction] 6.2 % High See comment [facility] Comment on above: Order Comment: Diagn osis of Diabetes-Adults Non-Diabetic: < or = 5.6% Increased risk for developing diabetes: 5.7-6.4% Diagnostic of diabetes: > or = 6.5% Performed By: #### 4 548-4 #### HOLDEN Larson (10522) [facility] ([facility]) [address] [place] [address] Lipid 1996 panelon 4 Cholesterol [Mass/Vol] 109 mg/dL Normal 0-199 [facility] Comment on above: Result Comment: Age Desirable [...] By: #### 2 4331-1 #### CECY WONG (64762) [facility] ([facility]) [facility] [place] [address] Cholesterol in HDL [Mass/Vol] 46.0 mg/dL Normal [facility] Comment on above: Result Comment: Age Very Low Low Normal High 0-19 Y < 35 < 40 40-45 ---- 20-24 Y ---- < 40 >45 ---- >24 Y ---- < 40 40-60 >60 Performed By: #### 2 4331-1 #### CECY WONG (44606) [facility] ([facility]) [facility] [place] [address] Cholesterol in LDL [Mass/Vol] 42 mg/dL Normal <=99 [facility] Comment on above: Result Comment: Near Borderline AGE Desirable Optimal High High Very High 0-19 Y 0 - 109 --- 110-129 >/= 130 ---- 20-24 Y 0 - 119 --- 120-159 >/= 160 ---- >24 Y 0 - 99 100-129 130-159 160-189 >/=190 Performed By: #### 2 4331-1 #### CECY WONG (65716) [facility] ([facility]) [facility] [place] [address] Cholesterol in VLDL [Mass/Vol] 21 mg/dL Normal 0-40 [facility] Comment on above: Performed By: #### 2 4331-1 #### CECY WONG (56415) [facility] ([facility]) [facility] [place] [address] CHOLESTEROL/HDL RATIO 2.[address] [facility] Comment on above: Result Comment: Ref Values Desirable < 3.4 High Risk > 5.0 Performed By: #### 2 4331-1 #### CECY WONG (70103) [facility] ([facility]) [address] [place] [address] 92844 NON HDL CHOLESTEROL 63 mg/dL Normal 0-149 [facility] Comment on above: Result Comment: Age Desirable Borderline High High Very High 0-19 Y 0 - 119 120 - 144 >/= 145 >/= 160 20-24 Y 0 - 149 150 - 189 >/= 190 ---- >24 Y 30 mg/dL above LDL Cholesterol goal Performed By: #### 2 4331-1 #### CECY WONG (57065) [facility] ([facility]) [address] [place] [address]359 Triglyceride [Mass/Vol] 106 mg/dL Normal 0-149 [facility] Comment on above: Result Comment: Age Desirable [...] By: #### 2 4331-1 #### CECY WONG (71385) [facility] ([facility]) [address] [place] [address] 47304 Prostate specific Agon 01-19 Prostate specific Ag [Mass/Vol] ng/mL Normal <=4.00 [facility] Comment on above: Order Comment: The F DA requires that the method used for PSA assay be reported to the physician. Values obtained with different assay methods must not be used interchangeably. This test was performed at [facility] using the Access Hybritech PSA assay is a two-site immunoenzymatic sandwich assay. The assay is approved for measurement of prostate-specific antigen (PSA)in serum and may be used in conjunction with a digital rectal examination in men 50 years and older as an aid in detection of prostate cancer. 4-Nawfu-nkwszxhyp inhibitors (e.g. Proscar, Finasteride, Avodart, Dutasteride and Yessica) for the treatment of BPH have been shown to lower PSA levels by an average of 50% after 6 months of treatment. Performed By: #### 2 857-1 #### HOLDEN Larson (03060) [facility] ([facility]) [address] [place] [address] Comprehensive metabolic 2000 panelon 07-03-2023 Albumin BCP dye [Mass/Vol] 3.9 g/dL Normal 3.4-5.0 [facility] Comment on above: Performed By: #### 2 4323-8 #### CECY WONG (67055) [facility] ([facility]) [address] [place] [address] 68908 ALP [Catalytic activity/Vol] 62 U/L Normal 33-136 [facility] Comment on above: Performed By: #### 2 4323-8 #### CECY WONG (08496) [facility] ([facility]) [address] [place] [address] 41346 ALT With P-5'-P [Catalytic activity/Vol] 11 U/L Normal 10-52 [facility] Comment on above: Result Comment: [place] ents treated with Sulfasalazine may generate falsely decreased results for ALT. Performed By: #### 2 4323-8 #### CECY WONG (09962) [facility] ([facility]) [address] [place] [address] 00542 Anion gap [Moles/Vol] 12 mmol/L Normal 10-20 [facility] Comment on above: Performed By: #### 2 4323-8 #### CECY WONG (69319) [facility] ([facility]) [address] [place] [address] 56229 AST With P-5'-P [Catalytic activity/Vol] 13 U/L Normal 9-39 [facility] Comment on above: Performed By: #### 2 4323-8 #### CECY WONG (81145) [facility] ([facility]) [address] [place] [address] Bilirubin [Mass/Vol] 0.5 mg/dL Normal 0.0-1.2 [facility] Comment on above: Performed By: #### 2 4323-8 #### CECY WONG (70299) [facility] ([facility] [facility]) [address] [place] [address] Calcium [Mass/Vol] 9.6 mg/dL Normal 8.6-10.3 [facility] Comment on above: Performed By: #### 2 4323-8 #### CECY WONG ([id number]) [facility] ([facility]) [address] [place] [address] Chloride [Moles/Vol] 100 mmol/L Normal 98-107 [facility] Comment on above: Performed By: #### 2 4323-8 #### CECY WONG ([id number]) [facility] ([facility]) [address] [place] [address] CO2 [Moles/Vol] 29 mmol/L Normal 21-32 [facility] Comment on above: Performed By: #### 2 4323-8 #### CECY WONG ([id number]) [facility] ([facility]) [address] [place] [address] Creatinine [Mass/Vol] 1.59 mg/dL High 0.50-1.30 [facility] Comment on above: Performed By: #### 2 4323-8 #### CECY WONG ([id number]) [facility] ([facility]) [address] [place] [address]6964 Glomerular filtration rate/1.73 sq M.predicted 43 mL/min/1.73m*2 Low >60 [facility] Comment on above: Result Comment: Calc ulations of estimated GFR are performed using the 2020 CKD-EPI Study Refit equation without the race variable for the IDMS-Traceable creatinine methods. https://jasn.asnjournals.org/content//ASN.633556 0518 Performed By: #### 2 4323-8 #### CECY WONG ([id number]) [facility] ([facility]) [address] [place] [address]128 Glucose [Mass/Vol] 142 mg/dL High 74-99 [facility] Comment on above: Performed By: #### 2 4323-8 #### CECY WONG ([id number]) [facility] ([facility]) [address] [place] [address]1351 Potassium [Moles/Vol] 4.5 mmol/L Normal 3.5-5.3 [facility] Comment on above: Performed By: #### 2 4323-8 #### CECY WONG ([id number]) [facility] ([facility]) [address] [place] [address] Protein [Mass/Vol] 6.2 g/dL Low 6.4-8.2 [facility] Comment on above: Performed By: #### 2 4323-8 #### CECY OWNG ([id number]) [facility] ([facility]) [address] [place] [address]12 Sodium [Moles/Vol] 136 mmol/L Normal 136-145 [facility] Comment on above: Performed By: #### 2 4323-8 #### CECY WONG ([id number]) [facility] ([facility]) [address] [place] [address] 78046 Urea nitrogen [Mass/Vol] 32 mg/dL High 6-23 [facility] Comment on above: Performed By: #### 2 4323-8 #### CECY WONG ([id number]) [facility] ([facility]) [address] [place] [address]326 HbA1c (Bld) [Mass fraction]o n 07-03-2023 Average glucose Estimated from glycated hemoglobin (Bld) [Mass/Vol] 134 mg/dL Normal Not Established [facility] Comment on above: Order Comment: Diagn osis of Diabetes-Adults Non-Diabetic: < or = 5.6% Increased risk for developing diabetes: 5.7-6.4% Diagnostic of diabetes: > or = 6.5% Monitoring of Diabetes Age (y)....................... Therapeutic Goal (%) Adults: >18.........................<7.0 Pediatrics: 13-18...................<7.5 Pediatrics: 7-12....................<8.0 Pediatrics: 0-6..................... 7.5-8.5 [employer] [place]. Diabetes Care 33(S1), Mar 2009 Performed By: #### 4 548-4 #### HOLDEN Larson ([id number]) [facility] ([facility]) [address] [place] [address] Hemoglobin A1c/Hemoglobin.to myles 07-03-2023 HbA1c (Bld) [Mass fraction] 6.3 % High see below [facility] Comment on above: Order Comment: Diagn osis of Diabetes-Adults Non-Diabetic: < or = 5.6% Increased risk for developing diabetes: 5.7-6.4% Diagnostic of diabetes: > or = 6.5% Monitoring of Diabetes Age (y)....................... Therapeutic Goal (%) Adults: >18.........................<7.0 Pediatrics: 13-18...................<7.5 Pediatrics: 7-12....................<8.0 Pediatrics: 0-6..................... 7.5-8.5 [place]. 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) HTN (hypertension) (401.9) (I10) Medication management (V58.69) (Z79.899) Prostate cancer (185) (C61) Orders HTN (hypertension) Comprehensive Metabolic Panel; Status:Active; Requested for:[id number]; Medication management Follow-up visit in 5 Months Outpatient Follow-up Status: Hold For - Scheduling Requested for: [id number] 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 Having some leaking urine that is better on the medication. 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,N13.8) Bilateral renal cysts (753.10) (N28.1) Body mass index (BMI) of 24.0 to 24.9 in adult (V85.1) (Z68.24) Cervical spondylolysis (756.19) (M43.02) Coronary atherosclerosis of [place] coronary artery (414.01) (I25.10) Hiatal hernia (553.3) [...] TABLET EVERY MORNING Vitals Vital Signs Recorded: [id number] 01:53PM Heart Rate68 Khmmkuid432, LUE Smfqqyzsr56, LUE Height5 ft 9 in Wbxjsp931 lb BMI Vjlnxxndiz49.96 kg/m2 BSA Calculated1.92 Tobacco Useb) No Falls Screening (Age 18+)b) One or more falls in the last year Physical Exam Physical Examination General: Alert and oriented, No acute distress. Eye: Not injected Respiratory: No respiratory distress. Symmetrical chest wall expans (more content not included)... 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,N13.8) Cervical spondylolysis (756.19) (M43.02) Coronary atherosclerosis of [place] coronary artery (414.01) (I25.10) 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, psychotic disturbance, mood disturbance, 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 Normal [facility] COMPREHENSIVE PANELon 2021 Albumin [Mass/Vol] 4.2 g/dL Normal 3.4 - 5.0 [facility] Comment on above: Performed By: #### C MP #### [address] [address] ALP [Catalytic activity/Vol] 53 U/L Normal 33 - 136 [facility] Comment on above: Performed By: #### C MP #### [address] [address] ALT [Catalytic activity/Vol] 12 U/L Normal 10 - 52 [facility] Comment on above: Result Comment: [place] ents treated with Sulfasalazine may generate falsely decreased results for ALT. Performed By: #### C MP #### [address] [address] Anion gap [Moles/Vol] 13 mmol/L Normal 10 - 20 [facility] Comment on above: Performed By: #### C MP #### [address] [address] AST [Catalytic activity/Vol] 14 U/L Normal 9 - 39 [facility] Comment on above: Performed By: #### C MP #### [address] [address] Bilirubin [Mass/Vol] 0.8 mg/dL Normal 0.0 - 1.2 [facility] Comment on above: Performed By: #### C MP #### [address] [address] Calcium [Mass/Vol] 9.5 mg/dL Normal 8.6 - 10.3 [facility] Comment on above: Performed By: #### C MP #### [address] [address] Chloride [Moles/Vol] 98 mmol/L Normal 98 - 107 [facility] Comment on above: Performed By: #### C MP #### [address] [address] Creatinine [Mass/Vol] 0.91 mg/dL Normal 0.50 - 1.30 [facility] Comment on above: Performed By: #### C MP #### [address] [address] GFR/1.73 sq M.predicted among non-blacks MDRD (S/P/Bld) [Vol rate/Area] 85 mL/min/{1.73_m2} Normal >90 [facility] Comment on above: Result Comment: CALC ULATIONS OF ESTIMATED GFR ARE PERFORMED USING THE 2020 CKD-EPI STUDY REFIT EQUATION WITHOUT THE RACE VARIABLE FOR THE IDMS-TRACEABLE CREATININE METHODS. https://jasn.asnjournals.org/content/early//ASN.016088 9329 Performed By: #### C MP #### [address] [address] Glucose [Mass/Vol] 135 mg/dL High 74 - 99 [facility] Comment on above: Performed By: #### C MP #### [address] [address] HCO3 (Bld) [Moles/Vol] 29 mmol/L Normal 21 - 32 [facility] Comment on above: Performed By: #### C MP #### [address] [address] Potassium [Moles/Vol] 4.5 mmol/L Normal 3.5 - 5.3 [facility] Comment on above: Performed By: #### C MP #### [address] [address] Protein [Mass/Vol] 6.8 g/dL Normal 6.4 - 8.2 [facility] Comment on above: Performed By: #### C MP #### [address] [address] Sodium [Moles/Vol] 135 mmol/L Low 136 - 145 [facility] Comment on above: Performed By: #### C MP #### [address] [address] Urea nitrogen [Mass/Vol] 23 mg/dL Normal 6 - 23 [facility] Comment on above: Performed By: #### C MP #### [address] [address] HEMOGLOBIN A1Con 01-10-2022 Glucose [Mass/Vol] 151 mg/dL Normal [facility] Comment on above: Performed By: #### H BA1E #### [address] [address] HbA1c (Bld) [Mass fraction] 6.9 % Abnormal [facility] Comment on above: Result Comment: Diag nosis of Diabetes-Adults Non-Diabetic: < or = 5.6% Increased risk for developing diabetes: 5.7-6.4% Diagnostic of diabetes: > or = 6.5% . Monitoring of Diabetes Age (y) Therapeutic Goal (%) Adults: >18 <7.0 Pediatrics: 13-18 <7.5 7-12 <8.0 0- 6 7.5-8.5 [place] [employer]. Diabetes Care 33(S1), Mar 2009. Performed By: #### H BA1E #### [address] [address] LIPID PANEL (CORONARY RISK 2 )on 01-10-2022 Cholesterol [Mass/Vol] 105 mg/dL Normal 0 - 199 [facility] Comment on above: Result Comment: [...] dosing. Performed By: #### L IPID #### [address] [address] Cholesterol in HDL [Mass/Vol] 40.0 mg/dL Normal [facility] Comment on above: Result Comment: . AGE VERY LOW LOW NORMAL HIGH 0-19 Y < 35 < 40 40-45 ---- 20-24 Y ---- < 40 >45 ---- >24 Y ---- < 40 40-60 >60 . Performed By: #### L IPID #### [address] [address] Cholesterol in LDL [Mass/Vol] 41 mg/dL Normal 0 - 99 [facility] Comment on above: Result Comment: . NEAR BORD AGE DESIRABLE OPTIMAL HIGH HIGH VERY HIGH 0-19 Y 0 - 109 --- 110-129 >/= 130 ---- 20-24 Y 0 - 119 --- 120-159 >/= 160 ---- >24 Y 0 - 99 100-129 130-159 160-189 >/=190 . Performed By: #### L IPID #### [address] [address] Cholesterol in VLDL [Mass/Vol] 24 mg/dL Normal 0 - 40 [facility] Comment on above: Performed By: #### L IPID #### [address] [address] Cholesterol.total/Cho lesterol in HDL [Mass ratio] 2.6 {ratio} Normal [facility] Comment on above: Result Comment: REF VALUES DESIRABLE < 3.4 HIGH RISK > 5.0 Performed By: #### L IPID #### [address] [address] Triglyceride [Mass/Vol] 121 mg/dL Normal 0 - 149 [facility] Comment on above: Result Comment: [...] dosing. Performed By: #### L IPID #### [address] [address] PROSTATE SPECIFIC AGon 01-10 Prostate specific Ag [Mass/Vol] ng/mL Critically low 0.00 - 4.00 [facility] Comment on above: Result Comment: The FDA requires that the method used for PSA assay be reported to the physician. Values obtained with different assay methods must not be used interchangeably. This test was performed at [facility] using the [employer] PSA assay is a two-site immunoenzymatic sandwich assay. The assay is approved for measurement of prostate-specific antigen (PSA)in serum and may be used in conjunction with a digital rectal examination in men 50 years and older as an aid in detection of prostate cancer. 6-Czyww-kvzvcaeqs inhibitors (e.g. Proscar, Finasteride, Avodart, Dutasteride and Yessica) for the treatment of BPH have been shown to lower PSA levels by an average of 50% after 6 months of treatment. Performed By: #### P SA #### [address] [address] TSH WITH REFLEX TO FREE T4 I F ABNORMALon 01-10-2022 TSH Qn 1.29 m[IU]/L Normal 0.44 - 3.98 [facility] Comment on above: Result Comment: TSH testing is performed using different testing methodology at [facility] than at other [facility]. Direct result comparisons should only be made within the same method. Performed By: #### T HYDS #### [address] [address] Absolute lymphocyte counton 12-06-2021 Lymphocytes Auto (Unsp spec) [#/Vol] 2.47 10*3/uL 0.83-4.51 [facility] Work Phone: Basophil percentageon 2021 Basophils/100 WBC (Bld) 0.5 % 0-1 [facility] Work Phone: Chloride [Moles/Vol] 101 mmol/L 98-107 [facility] Work Phone: Eosinophils/100 WBC (Bld) 2.4 % 0-5 [facility] Work Phone: Glucose [Mass/Vol] 128 mg/dL 74-106 [facility] Work Phone: Comment on above: Fasting Glucose resu lt greater than or equal to 126 mg/dL suggests DIABETES MELLITUS per A.D.A. criteria. Neutrophils (Bld) [#/Vol] 3.8 10*3/uL 2.0-7.7 [facility] Work Phone: Neutrophils/100 WBC (Bld) 51.5 % 47-70 [facility] Work Phone: Potassium [Moles/Vol] 3.8 mmol/L 3.5-5.1 [facility] Work Phone: Sodium [Moles/Vol] 138 mmol/L 136-145 [facility] Work Phone: WBC (Bld) [#/Vol] 7.4 10*3/uL 4.4-11.0 [facility] Work Phone: Blood erythrocytes count (nu mber/volume)on 12-06-2021 RBC (Bld) [#/Vol] 5.30 10*6/uL 4.6-6.2 [facility] Work Phone: Blood hemoglobin measurement (mass/volume)on 12-06-2021 Hemoglobin (Bld) [Mass/Vol] 15.9 g/dL 13.0-16.5 [facility] Work Phone: Blood lymphocytes/100 leukoc yteson 12-06-2021 Lymphocytes/100 WBC (Bld) 33.3 % 19-41 [facility] Work Phone: Blood monocytes/100 leukocyt eson 12-06-2021 Monocytes/100 WBC (Bld) 12.0 % 0-10 [facility] Work Phone: Blood platelet mean volumeon 12-06-2021 Platelet mean volume (Bld) [Entitic vol] 9.6 fL 6.2-12.0 [facility] Work Phone: [phone] Determination of erythrocyte mean corpuscular volume (MCV)on 12-06-2021 MCV (RBC) [Entitic vol] 89.2 fL 80-94 [facility] Work Phone: [phone] Hematocrit Auto (Bld) [Volum e fraction]on 12-06-2021 Hematocrit (Bld) [Volume fraction] 47.3 % 40-54 [facility] Work Phone: [phone] Laboratory - Chemistry and C hemistry - challengeon 12-06-2021 CO2 [Moles/Vol] 30.0 mmol/L 21.0-32.0 [facility] Work Phone: [phone] Magnesium [Mass/Vol] 1.4 mg/dL 1.6-2.6 [facility] Work Phone: [phone] Urea nitrogen/Creatinine [Mass ratio] 21.6 mg/mg 10-20 [facility] Work Phone: [phone] Laboratory - Hematology and Cell countson 12-06-2021 Erythrocyte distribution width (RBC) [Entitic vol] 42.6 fL 35.1-43.9 [facility] Work Phone: [phone] Erythrocyte distribution width (RBC) [Ratio] 13.1 % 11.6-14.6 [facility] Work Phone: [phone] Immature granulocytes/100 WBC (Bld) 0.300 % 0.0-0.9 [facility] Work Phone: [phone] Comment on above: IG% - Immature Granu locytes (promyelocytes, myelocytes and metamyelocytes) > 1% indicates that a LEFT SHIFT is Present. MCH (RBC) [Entitic mass] 30.0 pg 27.0-32.0 [facility] Work Phone: [phone] Nucleated RBC/100 WBC (Bld) [Ratio] 0 % 0-5 [facility] Work Phone: [phone] MCHC Auto (RBC) [Mass/Vol]on 12-06-2021 MCHC (RBC) [Mass/Vol] 33.6 g/dL 32-36 [facility] Work Phone: No Panel Informationon 12-06 Estimated Creatinine Clearance Calc 55.72 ml/min [facility] Work Phone: Estimated GFR (MDRD) Amer 82 mL/min >60 [facility] Work Phone: Comment on above: GFR Calc Estimated GFR (MDRD) Non-Af Amer 68 mL/min >60 [facility] Work Phone: Comment on above: Non- GFR Calc Troponin I High Sensitivity 6 pg/mL 3.0-78.0 [facility] Work Phone: Comment on above: Please Note: New [place] t Units and Gender Specific Reference Ranges. For more information see Policy Stat Procedure [place] High Sensitivity Troponin (TNIH) and attachments. Platelets bldon 12-06-2021 Platelets (Bld) [#/Vol] 198 10*3/uL 150-450 [facility] Work Phone: Serum or plasma calcium lisa urement (mass/volume)on 12-06-2021 Calcium [Mass/Vol] 9.3 mg/dL 8.5-10.1 [facility] Work Phone: Serum or plasma creatinine m easurement (mass/volume)on 12-06-2021 Creatinine [Mass/Vol] 1.11 mg/dL 0.70-1.30 [facility] Work Phone: Comment on above: The validity of the calculated GFR & GFRAA in patients over 70 years has not been determined. Clinical correlation is essential. 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 Normal SCL BASIC METABOLIC PANELon 04-3 Anion gap [Moles/Vol] 13 mmol/L Normal 10 - 20 [facility] Comment on above: Performed By: #### B MP #### [address] [address] Calcium [Mass/Vol] 9.4 mg/dL Normal 8.6 - 10.3 [facility] Comment on above: Performed By: #### B MP #### [address] [address] Chloride [Moles/Vol] 98 mmol/L Normal 98 - 107 [facility] Comment on above: Performed By: #### B MP #### [address] [address] Creatinine [Mass/Vol] 1.07 mg/dL Normal 0.50 - 1.30 [facility] Comment on above: Performed By: #### B MP #### [address] [address] GFR/1.73 sq M.predicted among non-blacks MDRD (S/P/Bld) [Vol rate/Area] 70 mL/min/{1.73_m2} Normal >90 [facility] Comment on above: Result Comment: CALC ULATIONS OF ESTIMATED GFR ARE PERFORMED USING THE 2020 CKD-EPI STUDY REFIT EQUATION WITHOUT THE RACE VARIABLE FOR THE IDMS-TRACEABLE CREATININE METHODS. https://jasn.asnjournals.org/content//ASN.367952 2560 Performed By: #### B MP #### [address] [address] Glucose [Mass/Vol] 143 mg/dL High 74 - 99 [facility] Comment on above: Performed By: #### B MP #### [address] [address] HCO3 (Bld) [Moles/Vol] 29 mmol/L Normal 21 - 32 [facility] Comment on above: Performed By: #### B MP #### [address] [address] Potassium [Moles/Vol] 4.7 mmol/L Normal 3.5 - 5.3 [facility] Comment on above: Performed By: #### B MP #### [address] [address] Sodium [Moles/Vol] 135 mmol/L Low 136 - 145 [facility] Comment on above: Performed By: #### B MP #### [address] [address] Urea nitrogen [Mass/Vol] 25 mg/dL High 6 - 23 [facility] Comment on above: Performed By: #### B MP #### [address] [address] HEMOGLOBIN A1Con 07-05-2021 Glucose [Mass/Vol] 157 mg/dL Normal [facility] Comment on above: Performed By: #### H BA1E #### [address] [address] HbA1c (Bld) [Mass fraction] 7.1 % Abnormal [facility] Comment on above: Result Comment: Diag nosis of Diabetes-Adults Non-Diabetic: < or = 5.6% Increased risk for developing diabetes: 5.7-6.4% Diagnostic of diabetes: > or = 6.5% . Monitoring of Diabetes Age (y) Therapeutic Goal (%) Adults: >18 <7.0 Pediatrics: 13-18 <7.5 7-12 <8.0 0- 6 7.5-8.5 [employer] [place]. Diabetes Care 33(S1), Mar 2009. Performed By: #### H BA1E #### [address] [address] Hemoglobin A1Con 07-05-2021 Glucose [Mass/Vol] 157 mg/dL [facility] Work Phone: HbA1c (Bld) [Mass fraction] 7.1 % Abnormal [facility] Work Phone: Comment on above: Diagnosis of Diabete s-Adults Non-Diabetic: < or = 5.6% Increased risk for developing diabetes: 5.7-6.4% Diagnostic of diabetes: > or = 6.5%. Monitoring of Diabetes Age (y) Therapeutic Goal (%) Adults: >18 <7.0 Pediatrics: 13-18 <7.5 7-12 <8.0 0- 6 7.5-8.5 [employer] [place]. Diabetes Care 33(S1), Mar 2009. Laboratory - Chemistry and C hemistry - challengeon 07-05-2021 Anion gap [Moles/Vol] 13 mmol/L 10 - 20 [facility] Work Phone: Calcium [Mass/Vol] 9.4 mg/dL 8.6 - 10.3 [facility] Work Phone: Chloride [Moles/Vol] 98 mmol/L 98 - 107 [facility] Work Phone: CO2 [Moles/Vol] 29 mmol/L 21 - 32 [facility] Work Phone: Creatinine [Mass/Vol] 1.07 mg/dL See Below [facility] Work Phone: Comment on above: Reference Range: 0.5 0 - 1.30 Glucose [Mass/Vol] 143 mg/dL above high threshold 74 - 99 [facility] Work Phone: Potassium [Moles/Vol] 4.7 mmol/L 3.5 - 5.3 [facility] Work Phone: Sodium [Moles/Vol] 135 mmol/L below low threshold 136 - 145 [facility] Work Phone: Urea nitrogen [Mass/Vol] 25 mg/dL above high threshold 6 - 23 [facility] Work Phone: No Panel Informationon 07-05 70 {mL/min/1.73m2} >90 [facility] Work Phone: Comment on above: CALCULATIONS OF JORGE MATED GFR ARE PERFORMED USING THE 2020 CKD-EPI STUDY REFIT EQUATION WITHOUT THE RACE VARIABLE FOR THE IDMS-TRACEABLE CREATININE METHODS.https://jasn.asnjournals.org/content// N.7481525337 VITAMIN B12on 07-05-2021 Cobalamin (Vitamin B12) [Mass/Vol] 278 pg/mL Normal 211 - 911 [facility] Comment on above: Performed By: #### V TB12 #### [facility] [address] [place] [address] Vitamin B12, Serumon 022 Cobalamin (Vitamin B12) [Mass/Vol] 278 pg/mL 211 - 911 [facility] Work Phone: Tobacco Screening.on 021 Fall risk assessment a) No falls within the last year [facility] Work Phone: Tobacco use status [facility] b) No [facility] Work Phone: Hemoglobin A1Con 12-28-2020 Glucose [Mass/Vol] 160 mg/dL [facility] Work Phone: HbA1c (Bld) [Mass fraction] 7.2 % Abnormal [facility] Work Phone: Comment on above: Diagnosis of Diabete s-Adults Non-Diabetic: < or = 5.6% Increased risk for developing diabetes: 5.7-6.4% Diagnostic of diabetes: > or = 6.5%. Monitoring of Diabetes Age (y) Therapeutic Goal (%) Adults: >18 <7.0 Pediatrics: 13-18 <7.5 7-12 <8.0 0- 6 7.5-8.5 [employer]. Diabetes Care 33(S1), Mar 2009. Laboratory - Chemistry and C hemistry - challengeon 12-28-2020 Albumin BCP dye [Mass/Vol] 4.2 g/dL 3.4 - 5.0 [facility] Work Phone: ALP [Catalytic activity/Vol] 52 U/L 33 - 136 [facility] Work Phone: [phone] ALT With P-5'-P [Catalytic activity/Vol] 18 U/L 10 - 52 [facility] Work Phone: Comment on above: Patients treated wit h Sulfasalazine may generate falsely decreased results for ALT. Anion gap [Moles/Vol] 12 mmol/L 10 - 20 [facility] Work Phone: [phone] AST With P-5'-P [Catalytic activity/Vol] 17 U/L 9 - 39 [facility] Work Phone: Bilirubin [Mass/Vol] 0.6 mg/dL 0.0 - 1.2 [facility] Work Phone: [phone] Calcium [Mass/Vol] 9.7 mg/dL 8.6 - 10.3 [facility] Work Phone: Chloride [Moles/Vol] 100 mmol/L 98 - 107 [facility] Work Phone: CO2 [Moles/Vol] 29 mmol/L 21 - 32 [facility] Work Phone: [phone] Creatinine [Mass/Vol] 0.94 mg/dL See Below [facility] Work Phone: [phone] Comment on above: Reference Range: 0.5 0 - 1.30 Glucose [Mass/Vol] 155 mg/dL above high threshold 74 - 99 [facility] Work Phone: [phone] Potassium [Moles/Vol] 4.0 mmol/L 3.5 - 5.3 [facility] Work Phone: [phone] Protein [Mass/Vol] 6.9 g/dL 6.4 - 8.2 [facility] Work Phone: [phone] Sodium [Moles/Vol] 137 mmol/L 136 - 145 [facility] Work Phone: [phone] Urea nitrogen [Mass/Vol] 18 mg/dL 6 - 23 [facility] Work Phone: [phone] Laboratory - Hematology and Cell countson 12-28-2020 Erythrocyte distribution width (RBC) [Ratio] 14.4 % See Below [facility] Work Phone: Comment on above: Reference Range: 11. 5 - 14.5 Hematocrit (Bld) [Volume fraction] 45.8 % See Below [facility] Work Phone: [phone] Comment on above: Reference Range: 41. 0 - 52.0 Hemoglobin (Bld) [Mass/Vol] 15.2 g/dL See Below [facility] Work Phone: [phone] Comment on above: Reference Range: 13. 5 - 17.5 MCHC (RBC) [Mass/Vol] 33.3 g/dL See Below [facility] Work Phone: [phone] Comment on above: Reference Range: 32. 0 - 36.0 MCV (RBC) [Entitic vol] 89 fL 80 - 100 [facility] Work Phone: [phone] Platelets (Bld) [#/Vol] 192 10*3/uL 150 - 450 [facility] Work Phone: [phone] RBC (Bld) [#/Vol] 5.12 {x10E12/L} See Below [facility] Work Phone: Comment on above: Reference Range: 4.5 0 - 5.90 WBC (Bld) [#/Vol] 5.1 10*3/uL 4.4 - 11.3 [facility] Work Phone: Lipid Panelon 12-28-2020 Cholesterol [Mass/Vol] 106 mg/dL 0 - 199 [facility] Work Phone: Comment on above: . AGE [...] Cholesterol in HDL [Mass/Vol] 38.0 mg/dL Abnormal [facility] Work Phone: Comment on above: . AGE VERY LOW LOW N ORMAL HIGH 0-19 Y < 35 < 40 40-45 ---- 20- 24 Y ---- < 40 >45 ---- >24 Y ---- < 40 40-60 >60. Cholesterol in LDL [Mass/Vol] 51 mg/dL 0 - 99 [facility] Work Phone: Comment on above: . NEAR BORD AGE ALISHA RABLE OPTIMAL HIGH HIGH VERY HIGH 0-19 Y 0 - 109 --- 110-129 >/= 130 ---- 20-24 Y 0 - 119 --- 120-159 >/= 160 ---- >24 Y 0 - 99 100-129 130-159 160-189 >/=190. Cholesterol.total/Cho lesterol in HDL [Mass ratio] 2.8 {ratio} [facility] Work Phone: Comment on above: REF VALUESDESIRABLE < 3.4HIGH RISK > 5.0 Triglyceride [Mass/Vol] 85 mg/dL 0 - 149 [facility] Work Phone: Comment on above: . AGE [...] Lipid Panel 17 mg/dL 0 - 40 [facility] Work Phone: No Panel Informationon 12-28 >60 >60 [facility] Work Phone: Comment on above: CALCULATIONS OF JORGE MATED GFR ARE PERFORMED USING THE MDRD STUDY EQUATION FOR THE IDMS-TRACEABLE CREATININE METHODS. CLIN CHEM 2007;53:766-72 Prostate Specific Antigenon 12-28-2020 Prostate specific Ag [Mass/Vol] ng/mL See Below [facility] Work Phone: Comment on above: Reference Range: 0.0 0 - 4.00The FDA requires that the method used for PSA assay be reported to the physician. Values obtained with different assay methods must not be used interchangeably. This testwas performed at [facility] using the [employer] PSA assay is a two-site immunoenzymatic sandwich assay. The assay is approved for measurement of prostate-specific antigen (PSA)in serum and may be used in conjunction with a digital rectal examination in men 50 years and older as an aid in detection of prostate cancer.1-Xrryj-cyvkphmzy inhibitors (e.g. Proscar, Finasteride, Avodart, Dutasteride and Yessica) for the treatment of BPH have been shown to lower PSA levels by an average of 50% after 6 months of treatment. Vitamin B12, Serumon 12-28- 021 Cobalamin (Vitamin B12) [Mass/Vol] 291 pg/mL 211 - 911 [facility] Work Phone: MRI Brain w/wo Contraston MR Brain WO and W contrast IV Interpreted by: NEYDA PANCHAL06/18/20 15:43MRN: [id number] Name: ALL YOUNG STUDY:MRI BRAIN W/WO CONTRAST; 06/18/2020 2:58 pm INDICATION:Memory loss NO TO MRI QUESTION. COMPARISON:None. ORDERING CLINICIAN:LEN DUQUE TECHNIQUE:Axial T2, FLAIR, DWI, gradient echo T2 and sagittal and coronal [id number] images of brain were acquired. Contrast was [...] signed by: NEYDA PANCHAL 06/18/20 15:43 Normal [facility] Work Phone: Comment on above: ORDER REVISED TO A N R MRI BRAIN W/WO CONTRAST BY RADIOLOGIST; Original Order Number: [id number] NR MRI BRAIN W/WO CONTRASTon 06-18-2020 NR MRI BRAIN W/WO CONTRAST Patient Name: ALL YOUNG STUDY: MRI BRAIN W/WO CONTRAST; 06/18/2020 2:58 pm INDICATION: Memory loss NO TO MRI QUESTION. COMPARISON: None. ACCESSION NUMBER(S): [id number] ORDERING CLINICIAN: LEN DUQUE TECHNIQUE: Axial T2, [...] Electronically signed by: NEYDA PANCHAL MD Normal [facility] BASIC METABOLIC PANELon 05-07 Anion gap [Moles/Vol] 14 mmol/L Normal 10 - 20 [facility] Comment on above: Performed By: #### B MP #### [address] [address] Calcium [Mass/Vol] 9.3 mg/dL Normal 8.6 - 10.3 [facility] Comment on above: Performed By: #### B MP #### [address] [address] Chloride [Moles/Vol] 98 mmol/L Normal 98 - 107 [facility] Comment on above: Performed By: #### B MP #### [address] [address] Creatinine [Mass/Vol] 0.99 mg/dL Normal 0.50 - 1.30 [facility] Comment on above: Performed By: #### B MP #### [address] [address] GFR- AM. >60 Normal >60 [facility] Comment on above: Result Comment: CALC ULATIONS OF ESTIMATED GFR ARE PERFORMED USING THE MDRD STUDY EQUATION FOR THE IDMS-TRACEABLE CREATININE METHODS. CLIN CHEM 2007;53:766-72 Performed By: #### B MP #### [address] [address] GFR-NON AM. >60 Normal >60 [facility] Comment on above: Performed By: #### B MP #### [address] [address] Glucose [Mass/Vol] 161 mg/dL High 74 - 99 [facility] Comment on above: Performed By: #### B MP #### [address] [address] HCO3 (Bld) [Moles/Vol] 25 mmol/L Normal 21 - 32 [facility] Comment on above: Performed By: #### B MP #### [address] [address] Potassium [Moles/Vol] 4.2 mmol/L Normal 3.5 - 5.3 [facility] Comment on above: Performed By: #### B MP #### [address] [address] Sodium [Moles/Vol] 133 mmol/L Low 136 - 145 [facility] Comment on above: Performed By: #### B MP #### [address] [address] Urea nitrogen [Mass/Vol] 21 mg/dL Normal 6 - 23 [facility] Comment on above: Performed By: #### B MP #### [address] [address] HEMOGLOBIN A1Con 05-29-2020 Glucose [Mass/Vol] 186 mg/dL Normal [facility] Comment on above: Performed By: #### H BA1E #### [address] [address] HbA1c (Bld) [Mass fraction] 8.1 % Normal [facility] Comment on above: Result Comment: Diag nosis of Diabetes-Adults Non-Diabetic: < or = 5.6% Increased risk for developing diabetes: 5.7-6.4% Diagnostic of diabetes: > or = 6.5% . Monitoring of Diabetes Age (y) Therapeutic Goal (%) Adults: >18 <7.0 Pediatrics: 13-18 <7.5 7-12 <8.0 0- 6 7.5-8.5 [employer] [place]. Diabetes Care 33(S1), Mar 2009. Performed By: #### H BA1E #### [address] [address] Hemoglobin A1Con 05-29-2020 HbA1c (Bld) [Mass fraction] 8.1 % [facility] Work Phone: Comment on above: Diagnosis of Diabete s-Adults Non-Diabetic: < or = 5.6% Increased risk for developing diabetes: 5.7-6.4% Diagnostic of diabetes: > or = 6.5%. Monitoring of Diabetes Age (y) Therapeutic Goal (%) Adults: >18 <7.0 Pediatrics: 13-18 <7.5 7-12 <8.0 0- 6 7.5-8.5 [employer]. Diabetes Care 33(S1), Mar 2009. HbA1c (Bld) [Mass fraction] 186 {MG/DL} [facility] Work Phone: Metabolic Panelon 05-29-2020 Anion gap [Moles/Vol] 14 mmol/L 10 - 20 [facility] Work Phone: Calcium [Mass/Vol] 9.3 mg/dL 8.6 - 10.3 [facility] Work Phone: Chloride [Moles/Vol] 98 mmol/L 98 - 107 [facility] Work Phone: CO2 [Moles/Vol] 25 mmol/L 21 - 32 [facility] Work Phone: Creatinine [Mass/Vol] 0.99 mg/dL See Below [facility] Work Phone: Comment on above: Reference Range: 0.5 0 - 1.30 Glucose [Mass/Vol] 161 mg/dL above high threshold 74 - 99 [facility] Work Phone: Potassium [Moles/Vol] 4.2 mmol/L 3.5 - 5.3 [facility] Work Phone: Sodium [Moles/Vol] 133 mmol/L below low threshold 136 - 145 [facility] Work Phone: Urea nitrogen [Mass/Vol] 21 mg/dL 6 - 23 [facility] Work Phone: Otheron 05-29-2020 >60 >60 [facility] Work Phone: Comment on above: CALCULATIONS OF JORGE MATED GFR ARE PERFORMED USING THE MDRD STUDY EQUATION FOR THE IDMS-TRACEABLE CREATININE METHODS. CLIN CHEM 2007;53:766-72 2 1 [facility] Work Phone: Comment on above: What year [...] - referral no t necessary at present [facility] Work Phone: TSH WITH REFLEX TO FREE T4 I F ABNORMALon 05-29-2020 TSH Qn 1.41 m[IU]/L Normal 0.44 - 3.98 [facility] Comment on above: Result Comment: TSH testing is performed using different testing methodology at [facility] than at other [facility]. Direct result comparisons should only be made within the same method. Performed By: #### T HYDS #### [address] [address] Thyroidon 05-29-2020 TSH Qn 1.41 {mIU/L} See Below [facility] Work Phone: Comment on above: Reference Range: 0.4 4 - 3.98 TSH testing is performed using different testing methodology at [facility] than at other [facility]. Direct result comparisons should only be made within the same method. ALBUMIN, URINE SPOTon 2019 ALBUMIN,URINE 12.0 mg/L Normal Not Established [facility] Comment on above: Performed By: #### A LBSP #### [address] [address] ALBUMIN/CREAT RATIO 12.4 ug/mg counter help Normal 0.0 - 30.0 S [facility] Comment on above: Performed By: #### A LBSP #### [address] [address] CREATININE,URINE 97.0 mg/dL Normal 20.0 - 370.0 [facility] Comment on above: Performed By: #### A LBSP #### [address] [address] COMPREHENSIVE PANELon 2019 Albumin [Mass/Vol] 4.3 g/dL Normal 3.4 - 5.0 [facility] Comment on above: Performed By: #### C MP #### [address] [address] ALP [Catalytic activity/Vol] 57 U/L Normal 33 - 136 [facility] Comment on above: Performed By: #### C MP #### [address] [address] ALT [Catalytic activity/Vol] 18 U/L Normal 10 - 52 [facility] Comment on above: Result Comment: [place] ents treated with Sulfasalazine may generate falsely decreased results for ALT. Performed By: #### C MP #### [address] [address] Anion gap [Moles/Vol] 11 mmol/L Normal 10 - 20 [facility] Comment on above: Performed By: #### C MP #### [address] [address] AST [Catalytic activity/Vol] 15 U/L Normal 9 - 39 [facility] Comment on above: Performed By: #### C MP #### [address] [address] Bilirubin [Mass/Vol] 0.4 mg/dL Normal 0.0 - 1.2 [facility] Comment on above: Performed By: #### C MP #### [address] [address] Calcium [Mass/Vol] 9.3 mg/dL Normal 8.6 - 10.3 [facility] Comment on above: Performed By: #### C MP #### [address] [address] Chloride [Moles/Vol] 97 mmol/L Low 98 - 107 [facility] Comment on above: Performed By: #### C MP #### [address] [address] Creatinine [Mass/Vol] 0.95 mg/dL Normal 0.50 - 1.30 [facility] Comment on above: Performed By: #### C MP #### [address] [address] GFR- AM. >60 Normal >60 [facility] Comment on above: Result Comment: CALC ULATIONS OF ESTIMATED GFR ARE PERFORMED USING THE MDRD STUDY EQUATION FOR THE IDMS-TRACEABLE CREATININE METHODS. CLIN CHEM 2007;53:766-72 Performed By: #### C MP #### [address] [address] GFR-NON AM. >60 Normal >60 [facility] Comment on above: Performed By: #### C MP #### [address] [address] Glucose [Mass/Vol] 150 mg/dL High 74 - 99 [facility] Comment on above: Performed By: #### C MP #### [address] [address] HCO3 (Bld) [Moles/Vol] 30 mmol/L Normal 21 - 32 [facility] Comment on above: Performed By: #### C MP #### [address] [address] Potassium [Moles/Vol] 4.3 mmol/L Normal 3.5 - 5.3 [facility] Comment on above: Performed By: #### C MP #### [address] [address] Protein [Mass/Vol] 6.9 g/dL Normal 6.4 - 8.2 [facility] Comment on above: Performed By: #### C MP #### [address] [address] Sodium [Moles/Vol] 134 mmol/L Low 136 - 145 [facility] Comment on above: Performed By: #### C MP #### [address] [address] Urea nitrogen [Mass/Vol] 22 mg/dL Normal 6 - 23 [facility] Comment on above: Performed By: #### C MP #### [address] [address] HEMOGLOBIN A1Con 01-06-2020 Glucose [Mass/Vol] 183 mg/dL Normal [facility] Comment on above: Performed By: #### H BA1E #### [address] [address] HbA1c (Bld) [Mass fraction] 8.0 % Normal [facility] Comment on above: Result Comment: Diag nosis of Diabetes-Adults Non-Diabetic: < or = 5.6% Increased risk for developing diabetes: 5.7-6.4% Diagnostic of diabetes: > or = 6.5% . Monitoring of Diabetes Age (y) Therapeutic Goal (%) Adults: >18 <7.0 Pediatrics: 13-18 <7.5 7-12 <8.0 0- 6 7.5-8.5 [employer] [place]. Diabetes Care 33(S1), Mar 2009. Performed By: #### H BA1E #### [address] [address] LIPID PANEL (CORONARY RISK 2 )on 01-06-2020 Cholesterol [Mass/Vol] 96 mg/dL Normal 0 - 199 [facility] Comment on above: Result Comment: . [...] dosing. Performed By: #### L IPID #### [address] [address] Cholesterol in HDL [Mass/Vol] 34.0 mg/dL Abnormal [facility] Comment on above: Result Comment: . AGE VERY LOW LOW NORMAL HIGH 0-19 Y < 35 < 40 40-45 ---- 20-24 Y ---- < 40 >45 ---- >24 Y ---- < 40 40-60 >60 . Performed By: #### L IPID #### [address] [address] Cholesterol in LDL [Mass/Vol] 30 mg/dL Normal 0 - 99 [facility] Comment on above: Result Comment: . NEAR BORD AGE DESIRABLE OPTIMAL HIGH HIGH VERY HIGH 0-19 Y 0 - 109 --- 110-129 >/= 130 ---- 20-24 Y 0 - 119 --- 120-159 >/= 160 ---- >24 Y 0 - 99 100-129 130-159 160-189 >/=190 . Performed By: #### L IPID #### [address] [address] Cholesterol in VLDL [Mass/Vol] 32 mg/dL Normal 0 - 40 [facility] Comment on above: Performed By: #### L IPID #### [address] [address] Cholesterol.total/Cho lesterol in HDL [Mass ratio] 2.8 {ratio} Normal [facility] Comment on above: Result Comment: REF VALUES DESIRABLE < 3.4 HIGH RISK > 5.0 Performed By: #### L IPID #### [address] [address] Triglyceride [Mass/Vol] 162 mg/dL High 0 - 149 [facility] Comment on above: Result Comment: . [...] dosing. Performed By: #### L IPID #### [address] [address] PROSTATE SPECIFIC AGon 01-05 Prostate specific Ag [Mass/Vol] ng/mL Normal 0.00 - 4.00 [facility] Comment on above: Result Comment: The FDA requires that the method used for PSA assay be reported to the physician. Values obtained with different assay methods must not be used interchangeably. This test was performed at [facility] using the [employer] PSA assay is a two-site immunoenzymatic sandwich assay. The assay is approved for measurement of prostate-specific antigen (PSA)in serum and may be used in conjunction with a digital rectal examination in men 50 years and older as an aid in detection of prostate cancer. 4-Qtojc-arpgixghj inhibitors (e.g. Proscar, Finasteride, Avodart, Dutasteride and Yessica) for the treatment of BPH have been shown to lower PSA levels by an average of 50% after 6 months of treatment. Performed By: #### P SA #### [address] [address] VITAMIN B12on 01-06-2020 Cobalamin (Vitamin B12) [Mass/Vol] 323 pg/mL Normal 211 - 911 [facility] Comment on above: Performed By: #### V TB12 #### [address] [address] BMPon 07-02-2018 Anion gap molar conc 11 mmol/L Normal 10-20 [facility] Comment on above: Performed By: #### 2 [id number] #### [facility] [employer] [address] [place] [address] Calcium mass conc 9.6 mg/dL Normal 8.6-10.3 [facility] Comment on above: Performed By: #### 2 [id number] #### [facility] [employer] [address] [place] [address] Chloride molar conc 100 mmol/L Normal 98-107 [facility] Comment on above: Performed By: #### 2 [id number] #### [facility] [employer] [address] [place] [address] CO2 molar conc 29.0 mmol/L Normal 21.0-32.0 [facility] Comment on above: Performed By: #### 2 [id number] #### [facility] [employer] [address] [place] [address] Creatinine mass conc 1.0 mg/dL Normal 0.5-1.3 [facility] Comment on above: Performed By: #### 2 [id number] #### [facility] [employer] [address] [place] [address] Glucose mass conc 186 mg/dL High 70-99 [facility] Comment on above: Performed By: #### 2 [id number] #### [facility] [employer] [facility] [place] [address] Potassium molar conc 4.6 mmol/L Normal 3.5-5.3 [facility] Comment on above: Performed By: #### 2 [id number] #### [facility] [employer] [facility] [place] [address] Sodium molar conc 135 mmol/L Low 136-145 [facility] Comment on above: Performed By: #### 2 [id number] #### [facility] [address] [address] Urea nitrogen mass conc 20 mg/dL Normal 6-23 [facility] Comment on above: Performed By: #### 2 [id number] #### [facility] [address] [address] Urea nitrogen/Creatinine mass ratio 20.0 ratio Normal 5.4-30.0 [facility] Comment on above: Performed By: #### 2 [id number] #### [facility] [address] [address] [id number] 07-02-2018 Hemoglobin A1c/Hemoglobin.total mass fraction (Bld) 8.3 % High 4.0-6.3 [facility] Comment on above: Performed By: #### 3 [id number] #### [facility] Chemistry Manual Subsection [address] [place] [address] Microalb/Creat Ratioon 07-02 Creatinine mass conc 158.0 mg/dL Normal 20.0-300.0 [facility] Comment on above: Performed By: #### 1 [id number] #### [facility] [address] [address] Creatinine mass conc 11 ug/mg Normal 0-30 [facility] Comment on above: Performed By: #### 1 [id number] #### [facility] [employer] [address] [place] [address] Ur Microalbumin 1.7 mg/dL Normal 0.0-1.9 [facility] Comment on above: Performed By: #### 1 [id number] #### [facility] [address] [place] [address] eGFRon 07-02-2018 GFR/1.73 sq M predicted among non-blacks MDRD vol rate/area (S/P/Bld) mL/min/{1.73_m2} Normal [facility] Comment on above: Order Comment: Order added by Discern Expert. Performed By: #### 1 [id number] #### [facility] [address] [place] [id number] BMPon 01-08-2018 Anion gap molar conc 12 mmol/L Normal 10-20 [facility] Comment on above: Performed By: #### 2 [id number] #### [facility] [employer] [address] [place] [address] Calcium mass conc 9.7 mg/dL Normal 8.6-10.3 [facility] Comment on above: Performed By: #### 2 [id number] #### [facility] [employer] [address] [place] [address] Chloride molar conc 96 mmol/L Low 98-107 [facility] Comment on above: Performed By: #### 2 [id number] #### [facility] [employer] [address] [place] [address] CO2 molar conc 29.0 mmol/L Normal 21.0-32.0 [facility] Comment on above: Performed By: #### 2 [id number] #### [facility] [employer] [address] [place] [address] Creatinine mass conc 1.0 mg/dL Normal 0.6-1.3 [facility] Comment on above: Performed By: #### 2 [id number] #### [facility] [employer] [address] [place] [address] Glucose mass conc 160 mg/dL High 70-99 [facility] Comment on above: Performed By: #### 2 [id number] #### [facility] [employer] [address] [place] [address] Potassium molar conc 4.4 mmol/L Normal 3.5-5.3 [facility] Comment on above: Performed By: #### 2 [id number] #### [facility] [employer] [address] [place] [address] Sodium molar conc 133 mmol/L Low 136-145 [facility] Comment on above: Performed By: #### 2 [id number] #### [facility] [employer] [address] [place] [address] Urea nitrogen mass conc 24 mg/dL High 6-23 [facility] Comment on above: Performed By: #### 2 [id number] #### [facility] [employer] [address] [place] [address] Urea nitrogen/Creatinine mass ratio 24.0 ratio Normal 5.4-30.0 [facility] Comment on above: Performed By: #### 2 [id number] #### [facility] [employer] [address] [place] [address] [id number] 01-08-2018 Hemoglobin A1c/Hemoglobin.total mass fraction (Bld) 8.3 % High 4.0-6.3 [facility] Comment on above: Performed By: #### 3 [id number] #### [facility] Chemistry Manual Subsection [address] [place] [address] Lipid Profileon 01-08-2018 Cholesterol in HDL mass conc 37 mg/dL Normal [facility] Comment on above: Performed By: #### 3 [id number] #### [facility] [employer] [address] [place] [address] Cholesterol in LDL mass conc 44 mg/dL Normal 0-130 [facility] Comment on above: Performed By: #### 3 [id number] #### [facility] [employer] [address] [place] [address] Cholesterol in VLDL mass conc 24 mg/dL Normal [facility] Comment on above: Performed By: #### 3 [id number] #### [facility] [employer] [address] [place] [address] Cholesterol mass conc 105 mg/dL Low 120-200 [facility] Comment on above: Performed By: #### 3 [id number] #### [facility] [employer] [address] [place] [address] Triglyceride mass conc 122 mg/dL Normal 0-150 [facility] Comment on above: Result Comment: AGE DESIRABLE BORDELINE HIGH 91 D - 9 Y 0 - 74 75 - 99 > 100 10 - 19 Y 0 - 89 90 - 129 > 130 20 - 24 Y 0 - 114 115 - 149 > 150 > 25 Y 0 - 149 150 - 199 200 - 499 Performed By: #### 3 [id number] #### [facility] [address] [place] [address] PSA Totalon 01-08-2018 PSA Total <0.10 Normal [facility] Comment on above: Performed By: #### 1 [id number] #### [facility] [employer] [address] [place] [id number] eGFRon 01-08-2018 GFR/1.73 sq M predicted among non-blacks MDRD vol rate/area (S/P/Bld) mL/min/{1.73_m2} Normal [facility] Comment on above: Order Comment: Order added by Discern Expert. Performed By: #### 1 [id number] #### [facility] [employer] [address] [place] [id number] ECG 12 Leadon 09-13-2017 Atrial Rate Invalid Interpretation Code [facility] P [facility] Invalid Interpretation Code [facility] P-R Interval Invalid Interpretation Code [facility] Q-T Interval Invalid Interpretation Code [facility] Q-T Interval (corrected) Invalid Interpretation Code [facility] QRS Duration Invalid Interpretation Code [facility] QTC Calculation (Bezet) Invalid Interpretation Code [facility] R Swain Invalid Interpretation Code [facility] T Swain Invalid Interpretation Code [facility] Ventricular Rate Invalid Interpretation Code [facility] Vital Signs Date Time Vital Sign Value Performing Clinician Facility 09-21-2024 06:51-0400 Body height 177.[address] Len Duque MD Work Phone: [facility] 01-20-2024 14:57-0500 Body mass index (BMI) [Ratio] 22.63 kg/m2 Len Duque MD Work Phone: [facility] 01-20-2024 14:57-0500 Body weight 68.49 kg Len Duque MD Work Phone: [facility] 01-20-2024 14:57-0500 Diastolic blood pressure 77 mm[Hg] Len Duque MD Work Phone: [facility] 01-20-2024 14:57-0500 Heart rate 77 /min Len Duque MD Work Phone: [facility] 01-20-2024 14:57-0500 SaO2% (BldA) [Mass fraction] 96 % Len Duque MD Work Phone: [facility] 01-20-2024 14:57-0500 Systolic blood pressure 118 mm[Hg] Len Duque MD Work Phone: [facility] 07-20-2023 14:48-0400 Body height 174 cm Len Duque MD Work Phone: [facility] 07-20-2023 14:48-0400 Body mass index (BMI) [Ratio] 23.08 kg/m2 Len Duque MD Work Phone: [facility] 07-20-2023 14:48-0400 Body weight 69.85 kg Len Duque MD Work Phone: [facility] 07-20-2023 14:48-0400 Diastolic blood pressure 72 mm[Hg] Len Duque MD Work Phone: [facility] 07-20-2023 14:48-0400 Heart rate 72 /min Len Duque MD Work Phone: [facility] 07-20-2023 14:48-0400 SaO2% (BldA) [Mass fraction] 96 % Len Duque MD Work Phone: [facility] 07-20-2023 14:48-0400 Systolic blood pressure 122 mm[Hg] Len Duque MD Work Phone: [facility] 02-23-2023 14:27-0500 Body mass index (BMI) [Ratio] 23.48 kg/m2 Len Duque MD Work Phone: [facility] 02-23-2023 14:27-0500 Body weight 72.12 kg Len Duqeu MD Work Phone: [facility] 02-23-2023 14:27-0500 Diastolic blood pressure 72 mm[Hg] Len Duque MD Work Phone: [facility] 02-23-2023 14:27-0500 Heart rate 69 /min Len Duque MD Work Phone: [facility] 02-23-2023 14:27-0500 SaO2% (BldA) [Mass fraction] 96 % Len Duque MD Work Phone: [facility] 02-23-2023 14:27-0500 Systolic blood pressure 116 mm[Hg] Len Duque MD Work Phone: [facility] 01-11-2023 15:30-0500 Body mass index (BMI) [Ratio] 24.07 kg/m2 Len Duque MD Work Phone: [facility] 01-11-2023 15:30-0500 Body weight 73.94 kg Len Duque MD Work Phone: [facility] 01-11-2023 15:30-0500 Diastolic blood pressure 70 mm[Hg] Len Duque MD Work Phone: [facility] 01-11-2023 15:30-0500 Heart rate 73 /min Len Duque MD Work Phone: [facility] 01-11-2023 15:30-0500 SaO2% (BldA) [Mass fraction] 97 % Len Duque MD Work Phone: [facility] 01-11-2023 15:30-0500 Systolic blood pressure 122 mm[Hg] Len Duque MD Work Phone: [facility] 07-07-2022 15:19-0400 Body height 175.3 cm Len Duque MD Work Phone: [facility] 07-07-2022 15:19-0400 Body mass index (BMI) [Ratio] 25.84 kg/m2 Len Duque MD Work Phone: [facility] 07-07-2022 15:19-0400 Body weight 79.38 kg Len Duque MD Work Phone: [facility] 07-07-2022 15:19-0400 Diastolic blood pressure 78 mm[Hg] Len Duque MD Work Phone: [facility] 07-07-2022 15:19-0400 Heart rate 79 /min Len Duque MD Work Phone: [facility] 07-07-2022 15:19-0400 SaO2% (BldA) [Mass fraction] 96 % Len Duque MD Work Phone: [facility] 07-07-2022 15:19-0400 Systolic blood pressure 110 mm[Hg] Len Duque MD Work Phone: [facility] 02-17-2022 13:53-0500 Body height 175.26 cm Len Duque Work Phone: [facility] Work Phone: 02-17-2022 13:53-0500 Body mass index (BMI) [Ratio] 24.96 kg/m2 Len Duque Work Phone: [facility] Work Phone: 02-17-2022 13:53-0500 Body surface area Derived from formula 1.92 m2 Len Duque Work Phone: [facility] Work Phone: 02-17-2022 13:53-0500 Body weight 76.66 kg Len O Duque Work Phone: [facility] Work Phone: 02-17-2022 13:53-0500 Diastolic blood pressure 76 mm[Hg] Len O Duque Work Phone: [facility] Work Phone: 02-17-2022 13:53-0500 Heart rate 68 /min Len O Duque Work Phone: [facility] Work Phone: 02-17-2022 13:53-0500 Systolic blood pressure 128 mm[Hg] Len O Duque Work Phone: [facility] Work Phone: 12-06-2021 06:09-0400 Body temperature 98 [degF] [facility] Work Phone: 12-06-2021 06:09-0400 Diastolic blood pressure 82 mm[Hg] [facility] Work Phone: 12-06-2021 06:09-0400 Heart rate 61 /min [facility] Work Phone: 12-06-2021 06:09-0400 Respiratory rate 17 /min [facility] Work Phone: 12-06-2021 06:09-0400 SaO2% (BldA) [Mass fraction] 96 % [facility] Work Phone: 12-06-2021 06:09-0400 Systolic blood pressure 141 mm[Hg] [facility] Work Phone: 12-06-2021 04:09-0400 Body height 177.8 cm [facility] Work Phone: 12-06-2021 04:09-0400 Body mass index (BMI) [Ratio] 24.2 kg/m2 [facility] Work Phone: 12-06-2021 04:09-0400 Body weight 76.5 kg [facility] Work Phone: 01-09-2021 13:50-0400 Body height 175.9 cm Len O Duque Work Phone: [facility] Work Phone: 01-09-2021 13:50-0400 Body mass index (BMI) [Ratio] 25.51 kg/m2 Len O Duque Work Phone: [facility] Work Phone: 01-09-2021 13:50-0400 Body surface area Derived from formula 1.95 m2 Len O Duque Work Phone: [facility] Work Phone: 01-09-2021 13:50-0400 Body weight 78.93 kg Len O Duque Work Phone: [facility] Work Phone: 01-09-2021 13:50-0400 Diastolic blood pressure 64 mm[Hg] Len O Duque Work Phone: [facility] Work Phone: 01-09-2021 13:50-0400 Heart rate 72 /min Len O Duque Work Phone: [facility] Work Phone: 01-09-2021 13:50-0400 Systolic blood pressure 110 mm[Hg] Len O Duque Work Phone: [facility] Work Phone: 07-08-2020 11:37-0400 Body height 175.9 cm Len Duque MD [facility] Work Phone: 07-08-2020 11:37-0400 Body mass index (BMI) [Ratio] 27.12 kg/m2 Len Duque MD [facility] Work Phone: 07-08-2020 11:37-0400 Body surface area Derived from formula 2 m2 Len Duque MD [facility] Work Phone: 07-08-2020 11:37-0400 Body weight 83.92 kg Len Duque MD [facility] Work Phone: 07-08-2020 11:37-0400 Diastolic blood pressure 80 mm[Hg] Len Duque MD [facility] Work Phone: Comment on above: Location: LUE; 07-08-2020 11:37-0400 Heart rate 72 /min Len Duque MD [facility] Work Phone: 07-08-2020 11:37-0400 Systolic blood pressure 124 mm[Hg] Len Duque MD [facility] Work Phone: Comment on above: Location: LUE; 05-29-2020 11:09-0400 BMI (Body Mass Index) 27.85 kg/m2 Len Duque [facility] Work Phone: 05-29-2020 11:09-0400 Body weight 86.18 kg Len Duque [facility] Work Phone: 05-29-2020 11:09-0400 BP Diastolic 74 mm[Hg] Len Duque [facility] Work Phone: Comment on above: Location: RUE; 05-29-2020 11:09-0400 BP Systolic 126 mm[Hg] Len Duque [facility] Work Phone: Comment on above: Location: RUE; 05-29-2020 11:09-0400 BSA (Body Surface Area) 2.03 m2 Len Duque [facility] Work Phone: 05-29-2020 11:09-0400 Height 175.9 cm Len Duque [facility] Work Phone: 05-29-2020 11:09-0400 Pulse (Heart Rate) 68 /min Len Kohler [facility] Work Phone: 09-13-2017 13: BMI (Body Mass Index) 28.71 kg/m2 Ryan Dillard [facility] 09-13-2017 13: Height 177.8 cm Ryan Dillard [facility] 09-13-2017 13: Weight 90.77 kg Ryan Dillard [facility] Encounters Encounter Date Encounter Type Care Provider Facility Start: 01-09-2025 ambulatory Efewongbe Devyne OLS Fa cility:[facility] Start: 11-07-2024 Registered Referred Chau White Start: 11-07-2024 End: 11-07-2024 ambulatory Efderrell Shepardgentry OLS Facility:[facility] Start: 10-27-2024 End: 10-27-[address] Len Duque MD Work Phone: [facility] Start: 10-27-2024 End: 10-27-2024 Patient encounter procedure Kirtialice Ortiz DIGITAL COMPUTER OPERATOR- -[facility] Work Phone: Start: 10-27-2024 Registered Referred Chau White Start: 10-27-2024 End: 10-27-2024 ambulatory Erasmoyessy Devyngentry MURRELL Facility:[facility] Start: 10-06-2024 End: 10-06-[address] Len Duque MD Work Phone: [facility] Start: 10-06-2024 End: 10-06-2024 Patient encounter procedure Catrina Prasad DIGITAL COMPUTER OPERATOR- -[facility] Work Phone: Start: 10-02-2024 ambulatory Efefeyessy Hortamalgentry MURRELL Fa cility:[facility] Start: 10-02-2024 Registered Referred Chau White Start: 09-05-2024 End: 09-05-[address] Len Duque MD Work Phone: [facility] Start: 09-05-2024 End: 09-05-[address] Chau Smallwood MD -[facility] Work Phone: Start: 08-22-2024 End: 08-22-[address] Len Duque MD Work Phone: [facility] Start: 08-22-2024 End: 08-22-2024 Departed Referred Chau Smallwood MD [facility] Start: 08-22-2024 Registered Referred Chau Smallwood MD [facility] Start: 08-22-2024 End: 08-22-2024 ambulatory Chau MURRELL Facility:[facility] Start: 08-08-2024 End: 08-08-[address] Len Duque MD Work Phone: [facility] Start: 08-08-2024 End: 08-08-[address] Chau Smallwood MD -[facility] Work Phone: Start: 08-07-2024 End: 08-07-[address] Lne Duque MD Work Phone: [facility] Start: 08-07-2024 End: 08-07-2024 Patient encounter procedure Kirti THOMAS -[facility] Work Phone: Start: 07-27-2024 End: 07-27-[address] 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); Hypercholesterolemia; Primary hypertension; Type 2 diabetes mellitus without complication, without long-term current use of insulin (Multi); Abnormal weight loss; Benign prostatic hyperplasia with urinary obstruction; Bilateral renal cysts; Cervical spondylolysis; Atherosclerosis of [place] coronary artery of [place] heart with stable angina pectoris; 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 (Multi); Hiatal hernia; Chronic bilateral low back pain without sciatica; Malignant neoplasm of skin; Prostate cancer (Multi); Pseudophakia, both eyes; 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.] of urine Start: 07-03-2023 End: 07-03-2023 [facility]: 02-23-2023 End: 02-23-2023 Office outpatient visit 15 minutes Len Duque MD Work Phone: [facility] Comment on above: Diabetic mononeuropa thy associated with type 2 diabetes mellitus (CMS/HCC) (Primary Dx); Abnormal weight loss; 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, psychotic disturbance, mood disturbance, or anxiety (CMS/HCC) Start: 01-11-2023 End: 01-11-2023 Assay of hemosiderin, quant Len Duque MD Work Phone: [facility] Work Phone: Start: 01-11-2023 End: 01-11-2023 Office outpatient visit 25 minutes Len Duque MD Work Phone: [facility] Comment on above: Routine general medi jean examination at health care facility (Primary Dx); 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, psychotic disturbance, mood disturbance, or anxiety (CMS/HCC); Hypercholesterolemia; Atherosclerosis of [place] coronary artery of [place] heart with stable angina pectoris (CMS/HCC); Primary [...] 25 minutes Len Duque MD Work Phone: [facility] Comment on above: 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 (Primary Dx); Prostate cancer (CMS/HCC); Bilateral renal cysts; Cervical spondylolysis; Atherosclerosis of [place] coronary artery of [place] heart with stable angina pectoris (CMS/HCC); 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 (CMS/HCC); Hiatal hernia; Hypercholesterolemia; Primary hypertension; Chronic bilateral low back pain without sciatica; 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, psychotic disturbance, mood disturbance, or anxiety (CMS/HCC); Malignant neoplasm of skin; Pseudophakia, both eyes; Urge incontinence of urine Start: 03-13-2022 AUDIT Len Duque Work Phone: [facility] Work Phone: Start: 02-17-2022 Office outpatient vi sit 15 minutes Len Duque Work Phone: [facility] Work Phone: Start: 02-17-2022 ambulatory Len Duque Facil [id number] Start: 01-13-2022 ambulatory Len Duque Facil [id number] Start: 12-06-2021 End: 12-06-2021 Emergency department patient visit [facility] Start: 10-02-2021 AUDIT Len Duque [facility] Work Phone: Start: 07-11-2021 ambulatory Len Duque Facil [id number] Start: 07-07-2021 Chart Update Len Duque Work Phone[facility] Work Phone: Start: 01-09-2021 Office outpatient vi sit 25 minutes Len Duque Work Phone[facility] Work Phone: Start: 10-07-2020 AUDIT Len Faith Duque Work Phone: [facility] Work Phone: Start: 07-08-2020 Patient encounter procedure Len Duque MD [facility] Work Phone: Start: 05-29-2020 Patient encounter procedure Len Duque [facility] Work Phone: Start: 01-11-2020 Patient encounter procedure [facility] Du[facility] Work Phone: Start: 07-11-2019 Patient encounter procedure [facility] Work Phone: Start: 01-11-2019 Patient encounter procedure Len Duque [facility] Work Phone: Start: 07-08-2018 End: 07-09-2018 Patient encounter procedure Len Duque Facility:[facility] Start: 07-02-2018 End: 07-03-2018 Patient encounter procedure Len Duque Facility:[facility] Start: 01-08-2018 End: 01-09-2018 Patient encounter procedure Len Duque Facility:[facility] Start: 01-07-2018 End: 01-08-2018 Patient encounter procedure Len Duque Facility:[facility] Start: 09-13-2017 End: 09-13-2017 Office outpatient visit 15 minutes Ryan Dillard Work Phone: [facility] Office Procedures Date Procedure Procedure Detail Performing Clinician Start: 01-20-2024 Lipid 1996 panel - Serum or Plasma Len Duque MD Work Phone: Start: 07-03-2023 Comprehensive metabolic 1999 panel - Serum or Plasma LEN DUQUE Start: 07-03-2023 Hemoglobin A1c/Hemoglobin.total in Blood LEN DUQUE Start: 12-26-2022 Lipid 1996 panel - Serum or Plasma Len Duque MD Work Phone: Start: 01-10-2022 Lipid [...] artery Len Duque Repair of shoulder Len Rodgersy triny Vasectomy Len Duque Plan of Treatment Date Care Activity Detail Author Start: 07-10-2027 DTaP/Tdap/Td Vaccine s (2 - Td or Tdap) DTaP/Tdap/Td Vaccines (2 - Td or Tdap) [facility] Start: 01-19-2025 Lipid panel Lipid Panel [facility] Start: 07-19-2024 End: 01-19-2025 Comprehensive metabolic 2000 panel - Serum or Plasma Comprehensive metabolic panel Lab Routine 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) Expected: 07/19/2024 (Approximate), Expires: 01/19/2025 [facility] Service Area Work Phone: Comment on above: Expected: 07/19/2024 (Approximate), Expires: 01/19/2025 Start: 07-19-2024 End: 01-19-2025 Hemoglobin A1c/Hemoglobin.total in Blood Hemoglobin A1c Lab Routine 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) Expected: 07/19/2024 (Approximate), Expires: 01/19/2025 [facility] Work Phone: Comment on above: Expected: 07/19/2024 (Approximate), Expires: 01/19/2025 Start: 02-26-2024 COVID-19 Vaccine ( season) COVID-19 Vaccine ( season) [facility] Start: 01-20-2024 End: 01-20-2024 Patient encounter procedure 01/20/2024 3:00 PM EST Office Visit [facility] [address] [place] [id number] Len Duque MD [address] [facility] [place] [address] [facility] Start: 01-20-2024 End: 07-19-2024 CBC panel - Blood by Automated count CBC Lab Routine 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) Expected: 01/20/2024 (Approximate), Expires: 07/19/2024 [facility] Service Area Work Phone: Comment on above: Expected: 01/20/2024 (Approximate), Expires: 07/19/2024 Start: 01-20-2024 End: 07-19-2024 Cobalamin (Vitamin B12) [Mass/volume] in Serum or Plasma Vitamin B12 Lab Routine 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) Expected: 01/20/2024 (Approximate), Expires: 07/19/2024 [facility] Work Phone: Comment on above: Expected: 01/20/2024 (Approximate), Expires: 07/19/2024 Start: 01-20-2024 End: 07-19-2024 Comprehensive metabolic 2000 panel - Serum or Plasma Comprehensive Metabolic Panel Lab Routine 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) Expected: 01/20/2024 (Approximate), Expires: 07/19/2024 [facility] Work Phone: Comment on above: Expected: 01/20/2024 (Approximate), Expires: 07/19/2024 Start: 01-20-2024 End: 07-19-2024 Hemoglobin A1c/Hemoglobin.total in Blood Hemoglobin A1C Lab Routine 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) Expected: 01/20/2024 (Approximate), Expires: 07/19/2024 [facility] Work Phone: Comment on above: Expected: 01/20/2024 (Approximate), Expires: 07/19/2024 Start: 01-20-2024 End: 07-19-2024 Lipid 1996 panel - Serum or Plasma Lipid Panel Lab Routine Hypercholesterolemia Expected: 01/20/2024 (Approximate), Expires: 07/19/2024 [facility] Work Phone: Comment on above: Expected: 01/20/2024 (Approximate), Expires: 07/19/2024 Start: 01-20-2024 End: 07-19-2024 Prostate specific Ag [Mass/volume] in Serum or Plasma Prostate Specific Antigen Lab Routine Prostate cancer (Multi) Expected: 01/20/2024 (Approximate), Expires: 07/19/2024 [facility] Work Phone: Comment on above: Expected: 01/20/2024 (Approximate), Expires: 07/19/2024 Start: 12-27-2023 Lipid panel Lipid Panel [facility] Start: 11-07-2023 Influenza vaccination Influenz a Vaccine (Season Ended) [facility] Start: 10-02-2023 Hemoglobin A1c measurement Diabetes: Hemoglobin A1C [facility] Start: 07-27-2023 End: 07-27-2023 Patient encounter procedure 07/27/2023 3:00 PM EDT Office Visit [facility] [address] [place] [phone] Len Duque MD [address] [facility] [place], [place] [id number] [facility] Start: 07-23-2023 End: 02-24-2024 Comprehensive metabolic 2000 panel - Serum or Plasma Comprehensive Metabolic Panel Lab Routine 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 (CMS/HCC) Expected: 07/23/2023 (Approximate), Expires: 02/24/2024 [facility] Service Area Work Phone: Comment on above: Expected: 07/23/2023 (Approximate), Expires: 02/24/2024 Start: 07-23-2023 End: 02-24-2024 Hemoglobin A1c/Hemoglobin.total in Blood Hemoglobin A1C Lab Routine 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 (CMS/HCC) Expected: 07/23/2023 (Approximate), Expires: 02/24/2024 [facility] Work Phone: Comment on above: Expected: 07/23/2023 (Approximate), Expires: 02/24/2024 Start: 03-28-2023 Hemoglobin A1c measurement Diabetes: Hemoglobin A1C [facility] Start: 02-16-2023 End: 02-16-2023 Patient encounter procedure 02/16/2023 4:00 PM EST Office Visit [facility] [address] [place] [phone] Len Duque MD [address] [facility] [place] [address] [facility] Start: 01-10-2023 Lipid panel Lipid Panel [facility] Start: 01-07-2023 End: 07-08-2023 CBC panel - Blood by Automated count CBC Lab Routine 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 (CMS/HCC) Expected: 01/07/2023 (Approximate), Expires: 07/08/2023 [facility] Work Phone: Comment on above: Expected: 01/07/2023 (Approximate), Expires: 07/08/2023 Start: 01-07-2023 End: 07-08-2023 Comprehensive metabolic 2000 panel - Serum or Plasma Comprehensive Metabolic Panel Lab Routine 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 (CMS/HCC) Expected: 01/07/2023 (Approximate), Expires: 07/08/2023 [facility] Work Phone: Comment on above: Expected: 01/07/2023 (Approximate), Expires: 07/08/2023 Start: 01-07-2023 End: 07-08-2023 Hemoglobin A1c/Hemoglobin.total in Blood Hemoglobin A1C Lab Routine 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 (CMS/HCC) Expected: 01/07/2023 (Approximate), Expires: 07/08/2023 [facility] Work Phone: Comment on above: Expected: 01/07/2023 (Approximate), Expires: 07/08/2023 Start: 01-07-2023 End: 07-08-2023 Lipid 1996 panel - Serum or Plasma Lipid Panel Lab Routine Hypercholesterolemia Expected: 01/07/2023 (Approximate), Expires: 07/08/2023 [facility] Work Phone: Comment on above: Expected: 01/07/2023 (Approximate), Expires: 07/08/2023 Start: 01-07-2023 End: 07-08-2023 Magnesium [Mass/volume] in Serum or Plasma Magnesium Lab Routine 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 ([facility]/HCC) Expected: 01/07/2023 (Approximate), Expires: 07/08/2023 [facility] Work Phone: Comment on above: Expected: 01/07/2023 (Approximate), Expires: 07/08/2023 Start: 01-07-2023 End: 07-08-2023 Prostate specific Ag [Mass/volume] in Serum or Plasma PSA Lab Routine Prostate cancer ([facility]) Expected: 01/07/2023 (Approximate), Expires: 07/08/2023 [facility] Service Area Work Phone: Comment on above: Expected: 01/07/2023 (Approximate), Expires: 07/08/2023 Start: 01-07-2023 End: 07-08-2023 TSH with reflex to Free T4 if abnormal TSH with reflex to Free T4 if abnormal Lab Routine Primary hypertension Expected: 01/07/2023 (Approximate), Expires: 07/08/2023 [facility] Work Phone: Comment on above: Expected: 01/07/2023 (Approximate), Expires: 07/08/2023 Start: 11-06-2022 COVID-19 Vaccine ( season) COVID-19 Vaccine ( season) [facility] Start: 11-06-2022 Influenza vaccination [facility] Start: 07-07-2022 EPV, Provider: Len Duque, Status: Pen, Time: 3:30 PM EPV, Provider: Len Duque, Status: Pen, Time: 3:30 PM [facility] Work Phone: Start: 04-12-2022 Hemoglobin A1c measurement Diabetes: Hemoglobin A1C [facility] Start: 01-13-2022 EPV, Provider: Len Duque, Status: Pen, Time: 3:30 PM EPV, Provider: Len Duque, Status: Pen, Time: 3:30 PM [facility] Work Phone: Start: 07-11-2021 EPV, Provider: Len Duque, Status: Pen, Time: 2:30 PM EPV, Provider: Len Duque, Status: Pen, Time: 2:30 PM [facility] Work Phone: Start: 01-25-2021 COVID-19 Vaccine (4 - Booster for Pfizer series) COVID-19 Vaccine (4 - Booster for Pfizer series) [facility] Start: 01-25-2021 COVID-19 Vaccine (4 - Pfizer series) COVID-19 Vaccine (4 - Pfizer series) [facility] Start: 01-09-2021 EPV, Provider: Len Duque, Status: Pen, Time: 2:00 PM EPV, Provider: Len Duque, Status: Pen, Time: 2:00 PM [facility] Work Phone: Start: 01-08-2021 Assay of prostate specific antigen total Prostate Specific Antigen [facility] Work Phone: Start: 01-08-2021 CBC W Auto Differential panel - Blood Complete Blood Count [facility] Work Phone: Start: 01-08-2021 Comprehensive metabolic 2000 panel - Serum or Plasma Comprehensive Metabolic Panel [facility] Work Phone: Start: 01-08-2021 Cyanocobalamin vitam in b-12 Vitamin B12, Serum [facility] Work Phone: Start: 01-08-2021 Hemoglobin glycosylated a1c Hemoglobin A1C [facility] Work Phone: Start: 01-08-2021 Lipid panel Lipid Panel [facility] Work Phone: Start: 01-05-2021 Urine screening for protein Diabetes: Urine Protein Screening [facility] Start: 07-08-2020 Assay of prostate specific antigen total Prostate Specific Antigen [facility] Work Phone: Start: 07-08-2020 CBC W Auto Differential panel - Blood Complete Blood Count [facility] Work Phone: Start: 07-08-2020 Comprehensive metabolic 2000 panel - Serum or Plasma Comprehensive Metabolic Panel [facility] Work Phone: Start: 07-08-2020 Cyanocobalamin vitam in b-12 Vitamin B12, Serum [facility] Work Phone: Start: 07-08-2020 Hemoglobin glycosylated a1c Hemoglobin A1C [facility] Work Phone: Start: 07-08-2020 Lipid panel Lipid Panel [facility] Work Phone: Start: 01-11-2020 Assay of prostate specific antigen total Prostate Specific Antigen [facility] Work Phone: Start: 01-11-2020 Cobalamin (Vitamin B12) [Mass/Vol] Vitamin B12, Serum [facility] Work Phone: Start: 01-11-2020 Comprehensive metabolic 2000 panel [facility] Work Phone: Start: 01-11-2020 HbA1c (Bld) [Mass fraction] Hemoglobin A1C [facility] Work Phone: Start: 01-11-2020 Lipid panel Lipid Panel [facility] Work Phone: Start: 11-06-2017 Influenza vaccination SEQUENTI AL INFLUENZA VACCINE (#1) [facility] Start: 2007 Pneumococcal vaccination PNEUMOCOCCAL VACCINE AGE 65+ (1 of 2 - PCV13) [facility] Start: 2002 RSV patient s and/or patients aged 60+ years (1 - 1-dose 60+ series) RSV patients and/or patients aged 60+ years (1 - 1-dose 60+ series) [facility] Start: 2002 Zoster vaccine hzv live for subcutaneous use ZOSTER VACCINE [facility] Start: 1992 Zoster Vaccines (1 o f 2) Zoster Vaccines (1 of 2) [facility] Start: 1952 Diabetic foot examination Diabetes: Foot Exam [facility] Start: 1952 Glaucoma screening Diabetes: R etinopathy Screening [facility] Start: 1952 Ophthalmic examinati on and evaluation Diabetes: Retinopathy Screening [facility] Start: 1942 Examination of skin Derm Melanoma Sk in Check [facility] Start: 1942 Screening colonoscopy [facility] Start: 1942 Tetanus vaccination TETANUS EVERY 10 YR [facility] Start: 1942 Yearly Adult Physical Yearly Adult P hysical [facility] Patient Education ED Chest Pain, Noncardiac ED Chest Wall Strain [facility] Work Phone: Patient referral [facility] Work Phone: NEGATED: Highlighted row has been ruled out! Planned Goals not documented [facility] Work Phone: Immunizations Immunization Date Immunization Notes Care Provider Fa cili 01-01-2024 influenza, seasonal, injectable Len Duque MD Work Phone: [facility] Work Phone: 01-01-2024 Pfizer Purple Cap SARS-CoV-2 Len Duque MD Work Phone: [facility] Work Phone: 01-01-2024 Respiratory Synctial Virus (Rsv), Unspecified Len Duque MD Work Phone: [facility] Work Phone: 01-23-2022 Pfizer COVID-19 Vac Bivalent 30 MCG/0.3ML Intramuscular Suspension Len Duque Work Phone: [facility] Work Phone: Comment on above: Series: 12-01-2021 Fluzone High-Dose Quadrivalent 0.7 ML Intramuscular Suspension Prefilled Syringe Len Duque Work Phone: [facility] Work Phone: Comment on above: Series: 12-01-2021 influenza virus vacc ine, unspecified formulation Len Duque MD Work Phone: [facility] Work Phone: 08-24-2021 zoster vaccine recombinant Len Duque Work Phone: [facility] Work Phone: Comment on above: Series: 08-24-2021 zoster vaccine, live Len Duque Work Phone: [facility] Work Phone: Comment on above: Series: 06-20-2021 zoster vaccine recombinant Len Duque Work Phone: [facility] Work Phone: Comment on above: Series: 11-30-2020 influenza, high dose seasonal, preservative-free Lenanamika Moralezer Work Phone: [facility] Work Phone: Comment on above: Series: 11-30-2020 influenza, seasonal, injectable Len Faith Roland Work Phone: [facility] Work Phone: Comment on above: Series: 11-30-2020 Influenza, Seasonal, Quadrivalent, Adjuvanted Len Duque MD Work Phone: [facility] Work Phone: 11-30-2020 Pfizer-BioNTech COVI D-19 Vacc 30 MCG/0.3ML Intramuscular Suspension Len Duque Work Phone: [facility] Work Phone: Comment on above: Series: 04-24-2020 Pfizer-BioNTech COVI D-19 Vacc 30 MCG/0.3ML Intramuscular Suspension Len Duque [facility] Work Phone: Comment on above: Series: 04-03-2020 Pfizer-BioNTech COVI D-19 Vacc 30 MCG/0.3ML Intramuscular Suspension Len Duque [facility] Work Phone: Comment on above: Series: 12-20-2019 influenza virus vacc ine, unspecified formulation Len Duque Work Phone: [facility] Work Phone: Comment on above: Series: 12-20-2019 influenza, injectabl e, quadrivalent, preservative free Len Duque MD Work Phone: [facility] Work Phone: 12-20-2019 influenza, seasonal, injectable Len Duque [facility] Work Phone: Comment on above: Series: 12-20-2019 influenza, seasonal, injectable Len Duque [facility] Work Phone: 01-06-2019 influenza, seasonal, injectable Len Duque [facility] Work Phone: Comment on above: Series: 12-24-2017 influenza virus vacc ine, unspecified formulation; Translations: [influenza virus vaccine, unspecified formulation] Len Duque [facility] Work Phone: Comment on above: Series: 07-09-2017 tetanus toxoid, redu omaira diphtheria toxoid, and acellular pertussis vaccine, adsorbed Len Duque [facility] Work Phone: Comment on above: Series: 12-30-2016 influenza virus vacc ine, live, attenuated, for intranasal use Len Duque MD Work Phone: [facility] Work Phone: 07-14-2016 pneumococcal conjuga te vaccine, 13 valent Len Duque [facility] Work Phone: Comment on above: Series: 01-19-2011 pneumococcal polysaccharide vaccine, 23 valent Len Duque [facility] Work Phone: Comment on above: Series: Payers Date Payer Category Payer Medicaid [id number] 2024 Self-pay [id number] 2023 Managed Care (Private) [employer] LTH PLAN [id number] 2023 Private Health Insurance [id number] 2023 Private Health Insurance [id number] 2015 Medicare supplementa l policy (as second payer) HU[employer] MEDICARE SUPPLEMENT [id number] 2015 Medicare [id number] 2015 Private Health Insurance [id number] 2011 Private Health Insurance 2011 Private Health Insurance [id number] 1942 Unknown [id number] 1942 Unknown [id number] .356 1942 Unknown [id number] .356 1942 Unknown [id number] [id number] .356 1942 Unknown [id number] .1245 1942 Unknown [id number] .1245 1942 Unknown [id number] .1244 1942 Unknown [id number] .1244 Unknown Unknown [id number] .462 Unknown [id number] .462 Unknown [id number] [id number] .462 Unknown [id number] 2.840.1.903122.3.579.2 .462 Unknown [id number] 2.840.1.060789.3.579.2 .462 Unknown [id number] 2.840.1.147822.3.579.2 .462 Unknown [id number] [id number] .462 Unknown [id number] .462 Unknown [id number] [id number] .462 Unknown [id number] [id number] .462 Unknown [id number] .462 Social History Date Type Detail Facility Start: 09-13-2017 End: 09-21-2024 Tobacco smoking status NHIS Former smoker [facility] Sex Assigned At Not on file [facility] Start: 07-07-2022 End: 01-11-2023 No recent foreign travel No recent foreign travel [facility] Work Phone: Start: 12-06-2021 Tobacco smoking status NHIS Unknown if ever smoked [facility] Work Phone: Start: 12-06-2021 None [facility] Start: 12-06-2021 Non-smoker [facility] Start: 1940 Sex Assigned At Male [facility] Start: 03-08-1954 End: 03-08-1964 History of tobacco use Current smoker [facility] Work Phone: Start: 03-08-1954 End: 03-08-1964 History of tobacco use Cigarette Smoker [facility] Work Phone: Start: 07-07-2022 End: 07-20-2023 Tobacco use and exposure Smokeless tobacco non-user [facility] Work Phone: Start: 07-07-2022 Alcohol intake Lifetime non-d marii (finding) [facility] Work Phone: Start: 07-07-2022 End: 01-11-2023 Tobacco use panel [facility] Work Phone: Start: 07-05-2022 Gender identity Identifies as male gender (finding) [facility] Work Phone: Start: 06-27-2022 End: 01-20-2024 Exposure to SARS-CoV-2 (event) Not sure [facility] Start: 01-11-2023 End: 01-20-2024 Alcohol intake Ex-drinker (finding) [facility] Work Phone: NEGATED: Highlighted row - - [facility] Work Phone: Functional Status Date Assessment Result Facility NEGATED: Highlighted row Functional performance Functional status health issues are not documented Disease [facility] Work Phone: Mental Status Date Assessment Result Facility 12-06-2021 Cognitive function Awake;Alert;A ppropria te;Inappropriate [facility] Work Phone: NEGATED: Highlighted row Cognitive function [Interpretation] Cognitive status health issues are not documented Disease [facility] Work Phone: Clinical Notes 01-09-2021 to [...] renal cysts Cervical 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 Diabetic mononeuropathy [...] - Established; Future documented in this encounter [facility] Work Phone: 07-20-2023 History of [...] States in August had pressure sore, used [place] and it cleared, but notes today he [...] hyperplasia with urinary obstruction Atherosclerosis of [place] coronary artery of [place] heart with stable angina pectoris ([facility]-HCC) Diabetic mononeuropathy associated with type [...] Care - Established documented in this encounter [facility] Work Phone: 02-23-2023 History of [...] of ulcer on buttocks with trip to [place] DM doing well Review of Systems Objective [...] daily at bedtime. documented in this encounter [facility] Work Phone: 01-11-2023 History of [...] on confused days. Follows with urologist in [place]. CERVICAL SPONDYLOSIS WITHOUT MYELOPATHY - has been [...] Yamila Young, Albert Macdonald Patient Care Team: Len Duque MD as [...] cysts Cervical spondylolysis Coronary atherosclerosis of [place] coronary artery Relevant Medications clopidogrel (Plavix) 75 [...] appetite. 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 I reviewed history and examined patient independently and updated as needed. documented in this encounter [facility] Work Phone: 07-07-2022 History of [...] Present, No bruit present. Integumentary: Warm, Dry, [place]. Psychiatric: Cooperative, Appropriate mood & affect, Normal judgment. Behavior: No pressured speech. Judgment: Able to make sensible decisions. Thought process: Appropriate. Low back not tender but tight with extension. 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 Risk prevention instructions provided. He was in the yard. Stumbled due to slow reflexes. When having more confusion. No injury documented in this encounter [facility] Work Phone: 07-07-2022 Instructions Len Duque [...] your healthcare team if you have questions [facility] 2021 documented in this encounter [facility] Work Phone: 01-13-2022 History of [...] Did have some swelling when driving to [place] after a long drive without walks.Having some leaking urine that is better on the medication. -[facility] Work Phone: 01-09-2021 History of [...] up words. Names OK. 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 Last day is tomorrow. When flying he [...] oxybutynin.Pseudophakia successful in both eyesCologuard 07/25/19PSA 12/28/20 -[facility] Work Phone: Evaluation note 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 (CMS/HCC) Diabetic [...] urine Urge incontinence documented in this encounter [facility] Work Phone: Evaluation note* Diagnosis Routine general medical examination at health care facility- Primary Routine general medical examination at a health care facility 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, psychotic disturbance, mood disturbance, or anxiety (CMS/HCC) Hypercholesterolemia Pure hypercholesterolemia Atherosclerosis of [place] coronary artery of [place] heart with stable angina pectoris (CMS/HCC) Primary [...] of skin (CMS/HCC) documented in this encounter [facility] Work Phone: Evaluation note* Diagnosis 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 (CMS/HCC)- Primary Abnormal weight loss Loss of weight 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, psychotic disturbance, mood disturbance, or anxiety (CMS/HCC) documented in this encounter [facility] Work Phone: Evaluation note* Diagnosis Abnormal weight loss- Primary Loss of weight 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 I believe your pain is related to muscles in the chest wall. 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, psychotic disturbance, mood disturbance, or anxiety (CMS/HCC) Procedures Follow Up In Primary Care Len Duque MD [address] [facility], [place] [id number] Referral ID Status Reason Start Date Expiration Date V isits Requested Visits Authorized [id number] Authorized 07/07/2022 01/03/2023 1 1 [facility] Work Phone: Reshpp for referral (narrative)* Consultation (Routine) - Authorized Specialty Diagnoses / Procedures Referred By Contac t Referred To Contact Primary Care Diagnoses Abnormal weight loss Procedures Follow Up In Primary Care - Established Len Duque MD [address] [facility], [facility] [address] [place] [address] Referral ID Status Reason Start Date Expiration Date V isits Requested Visits Authorized [id number] Authorized 01/11/2023 01/11/2024 1 1 [facility] Work Phone: reason for referral (narrative)* Consultation (Routine) - Authorized Specialty Diagnoses / Procedures Referred By Contac t Referred To Contact Primary Care Procedures Follow Up In Primary Care - Established Len Duque MD [address] [facility], [place] [id number] Referral ID Status Reason Start Date Expiration Date V isits Requested Visits Authorized [id number] Authorized 02/23/2023 02/23/2024 1 1 [facility] Work Phone: reason for referral (narrative)* Consultation (Routine) - Authorized Specialty Diagnoses / Procedures Referred By Contac t Referred To Contact Primary Care Diagnoses 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) Procedures Follow Up In Primary Care - Established Len Duque MD [address] [facility], [address] [address] Referral ID Status Reason Start Date Expiration Date V isits Requested Visits Authorized [id number] Authorized 07/20/2023 07/19/2024 1 1 [facility] Work Phone: reason for referral (narrative)* Consultation (Routine) - Authorized Specialty Diagnoses / Procedures Referred By Contac t Referred To Contact Primary Care Procedures Follow Up In Primary Care - Established Len Duque MD [address] [facility], [address] [address] Phone: tel: fax: Referral ID Status Reason Start Date Expiration Date V isits Requested Visits Authorized [id number] Authorized 01/20/2024 01/19/2025 1 1 [facility] Work Phone: Reason for referral (narrative)No reason for referral [facility] Work Phone: Assessments Diagnosis Coronary artery disease, ang cody presence unspecified, unspecified vessel or lesion type, unspecified whether [place] or transplanted heart Essential hypertension Unspecified essential [...] Will Yes December 06 4:12am Power of Fur Remodeler Yes December 06, 022 4:12am Name of Medical Power of Fur Remodeler Yamila Young December 06, 2021 4:12am Chief Complaint medckfollow up memantine Chief Complaint and Reason for Visit Chief Complaint cp Chief Complaint Admit Date ADMISSION EXAM August 07, 2024 2:45p m Chief Complaint Admit Date ADMISSION EXAM August 07, 2024 2:45p m ADMISSION EXAM August 08, 2024 4:30p m RESIDENTIAL LAB WORK August 22, 2024 5: 00am Chief Complaint Admit Date ADMISSION EXAM August 07, 2024 2:45p m ADMISSION EXAM August 08, 2024 4:30p m RESIDENTIAL LAB WORK August 22, 2024 5: 00am Monthly Exam September 05, 2024 10:28 pm Chief Complaint Admit Date ADMISSION EXAM August 07, 2024 2:45p m ADMISSION EXAM August 08, 2024 4:30p m RESIDENTIAL LAB WORK August 22, 2024 5: 00am Monthly Exam September 05, 2024 10:28 pm RESIDENTIAL LAB WORK October 02, 2024 5: 00am MONTHLY EXAM October 06, 2024 11: 00am Chief Complaint Admit Date ADMISSION EXAM August 07, 2024 2:45p m ADMISSION EXAM August 08, 2024 4:30p m RESIDENTIAL LAB WORK August 22, 2024 5: 00am Monthly Exam September 05, 2024 10:28 pm RESIDENTIAL LAB WORK October 02, 2024 5: 00am MONTHLY EXAM October 06, 2024 11: 00am RESIDENTIAL LAB WORK October 27, 2024 11:00am New [...] section and content) DATE CREATED AUTHOR 07/17/2018 [facility] DATE CREATED AUTHOR AUTHOR'S ORGANIZ ATION 06/24/2020 [facility] DATE CREATED AUTHOR AUTHOR'S ORGANIZ ATION 02/18/2022 [facility] DATE CREATED AUTHOR AUTHOR'S ORGANIZ ATION 04/20/2022 [facility] DATE CREATED AUTHOR AUTHOR'S ORGANIZ ATION 01/25/2024 [facility] DATE CREATED AUTHOR AUTHOR'S ORGANIZ ATION 07/17/2024 [facility] DATE CREATED AUTHOR AUTHOR'S ORGANIZ ATION 09/02/2024 [facility] DATE CREATED AUTHOR AUTHOR'S ORGANIZ ATION 01/10/2025 [facility] Goals (unrecognized section and content) Goals may [...] Management Specialty Diagnoses / Procedures Referred By Ferny ayoub Referred To Contact Primary Care Procedures Follow Up In Primary Care - Established Len Duque MD [address] [facility], [facility] [address] [place] [id number] Referral ID Status Reason Start Date Expiration Date V isits Requested Visits Authorized [id number] Authorized 02/23/2023 02/23/2024 1 1 Reason Comments Medicare Annual Wellness Visit Initial Specialty Diagnoses / Procedures Referred By Ferny ayoub Referred To Contact Primary Care Diagnoses 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, psychotic disturbance, mood disturbance, or anxiety (CMS/HCC) Procedures Follow Up In Primary Care Len Duque MD [address] [facility], [place] [address] [place] [address] Referral ID Status Reason Start Date Expiration Date Visits Re quested Visits Authorized [id number] Closed 07/07/2022 01/03/2023 1 1 Reason Comments Follow-up memory Specialty Diagnoses / Procedures Referred By Contac t Referred To Contact Primary Care Diagnoses Abnormal weight loss Procedures Follow Up In Primary Care - Established Len Duque MD [address] [facility], [address] [address] Referral ID Status Reason Start Date Expiration Date V isits Requested Visits Authorized [id number] Authorized 01/11/2023 01/11/2024 1 1 Specialty Diagnoses / Procedures Referred By Contac t Referred To Contact Primary Care Diagnoses 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) Procedures Follow Up In Primary Care - Established Len Duque MD [address] [facility], [place] [phone] Phone: tel: fax: Referral ID Status Reason Start Date Expiration Date V isits Requested Visits Authorized [id number] Authorized 07/20/2023 07/19/2024 1 1 Care Teams (unrecognized sec tion and content) 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 [employer] Relationship Specialty Start Date End Date Len Duque MD [address] [facility] [place], [place] [phone] PCP - General 11/08/18 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 [employer] Relationship Specialty Start Date End Date Len Duque MD [address] [facility] [place], [place] [id number] PCP - General 11/08/18 Salesperson [employer] Relationship Specialty Start Date End Date [facility] Duque MD [address] [facility] [place] [phone] PCP - General 11/08/18 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 Len Duque MD Family Provider Active Dr. Len Duque MD Primary Care Provider Active Team Status: Inactive Member Role/Relationship Status Dates Dr. Len Duque MD Primary Care Provider Active Start: August 07, 2024 End: August 07, 2024 Kirti Ortiz NP, DIGITAL COMPUTER OPERATOR-C Attending Provider Active Start: August 07, [...] 2024 End: October 06, 2024 Catrina Prasad NP-C Attending Provider Active Start: October 06, 2024 [...] End: October 27, 2024 Kirti Ortiz NP DIGITAL COMPUTER OPERATOR-C Attending Provider Active Start: October 27, [...] BE BASED ON THE PRIMARY CLINICAL RECORDS. [facility] provides no warranty or guarantee of the accuracy or completeness of information in this document.
[2025-01-11 09:16] LABS: Potassium 4.8 mmol/L (3.3-5.1)
== END ==
LOC: OLS.WHLCAR 05:00
PROVIDERS: PCP Family Medicine; Visit Provider Internal Medicine
DX: E11.22 Type 2 diabetes mellitus with diabetic chronic kidney disease (principal); E11.41 Type 2 diabetes mellitus with diabetic mononeuropathy; F01.B0 Vascular dementia, moderate, without behavioral disturbance, psychotic disturbance, mood disturbance, and anxiety; N18.30 Chronic kidney disease, stage 3 unspecified
CPT/HCPCS: 36415; 84132

== ENCOUNTER → 2025-01-30 05:00 | Outpatient (REF) | payer MEDICARE, OTHER, MEDICAID, SELFPAY ==
--- OUTSIDE RECORDS SUMMARY | 2025-01-30 04:10 | XMS RPT_ITS | CCD ---
Author Organization [facility] Informat ion [facility] Care Team Providers Care Tenter Feeder Name Role Phone Len Dquue Unavailable [phone] Len Duque Attending Unavailable Len Duque Primary [...] YOUNG, Dr. Len Cuevas Primary Care Provider Tickmylene RIBBON HAND-C, Kirti Attending Provider Chau Smallwood MD Attending Provider Unavaila lizzeth Smallwood MD, Dr. Ritchie Attending Provider Ungerer RIBBON HAND-C, Catrina Attending Provider Oleghe OLS, Efewongbe Attending Unavailabl e DuqueMandeep kumarer O Primary Care Unavailable Oleghe OLS, Efewongbe Attending Unavailabl e DuqueLen kumar O Primary Care Unavailable Oleghe OLS, Efewongbe Attending Unavailabl e Len Duque O Primary Care Unavailable Oleghe OLS, Efewongbe Attending Unavailabl e Len Duque O Primary Care Unavailable Oleghe OLS, Efewongbe Attending Unavailabl e Len Duque O Primary Care Unavailable Len Duque Primary Care Unavailable Oleghe, Efewongbe Attending Unavailable Tickton RIBBON HAND, Kirti Attending Unavailable Len Duque O Primary Care Unavailable Tickton RIBBON HAND, Ikrti Attending Unavailable Len Duque Primary Care Unavailable Len Duque Primary Care Unavailable Catrina Prasad Attending Unavailable Tickton RIBBON HAND, Kirti Attending Unavailable Len Duque O Primary Care Unavailable Tickton RIBBON HAND, Kirti Attending Unavailable Len Duque Primary Care Unavailable DuqueLen barnes Primary Care Unavailable Oleghe, Efewongbe Attending Unavailable DuqueLen barnes O Primary Care Unavailable Oleghe, Efewongbe Attending Unavailable Oleghe OLS, Efewongbe Attending Unavailabl e Len Duque O Primary Care Unavailable Allergies Allergy Classification Reported Allergen(s) Allergy Type Date of Onset Reaction(s) Facility NSAIDs (4 sources) NSAIDs; Translations: [NSAIDs] Drug Allergy [facility] Work Phone: (20 sources) nabumetone; Translations: [Relafen] Drug Allergy 5 Unknown [facility] Comment on above: KIDNEY DAMAGE (4 sources) nabumetone; Translations: [Relafen] Drug Allergy [facility] Repository (9 sources) NSAIDs; Translations: [NSAIDs] Propensity to adverse reactions to drug (disorder) [facility] Repository (7 sources) Non-steroidal anti-inflammator y agent; Translations: [NSAIDS (NON-STEROIDAL ANTI-INFLAMMATOR Y DRUG)] Drug Allergy 3 Unknown [facility] Work Phone: (5 sources) Mirtazapine; Translations: [MIRTAZAPINE] Drug Allergy 3 Other [facility] Work Phone: (1 source) nabumetone Drug Allergy 7 [facility] Repository Medications Current Medications Medication Drug [...] mg PO DAILY April 28, 2016 1:00am Rudjrqsq-Azfx-Kkb 7-M-Cklt-Bosw (Osteo Bi-Flex Caplet) 1 EACH tablet (7 sources) Start: 04-28-2016 take 1 tablet by mouth once daily Cnsjaopx-Cypp-Sns 2-T-Uxlm-Bosw (Osteo Bi-Flex Caplet) 1 EACH tablet Active 1 NMA PO DAILY April 28, 2016 1:00am Start: 04-28-2016 take 1 tablet by dmitri once daily Iisabfqc-Mmhq-Oyi4-C-Isreal-Bosw (Osteo Bi -Flex Caplet) 1 EACH tablet [...] mg extended release oral capsule (8 sources) U-byujin-G-aspart ate Receptor Antagonist Start: 10-01-2022 End: 04-08-2024 take 1 capsule by mouth once daily memantine (Namenda XR) 28 mg capsule,sprinkle,ER 24hr 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 90 capsule 3 04/09/2023 04/08/2024 Active Start: 02-17-2022 take 1 capsule by mo [facility] once daily Memantine HCl [...] Active Start: 04-17-2019 take 2 tablets by [facility] once daily metFORMIN HCl ER 500 MG Oral Tablet Extended Release 24 Hour TAKE 2 TABLET Daily Quantity: 180 Refills: 3 Ordered: 13-Jan-2022 Len Duque MD Start : 17-Apr-2019 Active Start: 04-17-2019 take 4 tablets by [facility] once daily metFORMIN HCl ER 500 MG Oral Tablet Extended Release 24 Hour TAKE 4 TABLET Daily Quantity: 360 Refills: 1 Ordered: 02-Oct-2021 Len Duque MD Start : 17-Apr-2019 Active Start: 04-28-2016 take 1 tablet by [facility] once daily Metformin 500 MG tablet Active 500 mg PO DAILY April 28, 2016 1:00am take 2 tablets by [facility] once daily metFORMIN XR (Glucophage-XR) 500 mg [...] (8 sources) Cholinergic Muscarinic Antagonist Start: 09-11-19 End: 09-14-19 take 1 tablet by mouth once daily [...] mg/ml ophthalmic solution (8 sources) Plasma Volume [employer] Watchman Start: 03-12-2020 take 1 drop(s) into the eye(s) once daily as needed Artificial Tears 0.1-0.3 % Ophthalmic Solution INSTILL 1 DROP Daily PRN Quantity: 0 Refills: 0 Ordered: 12-Mar-2020 DO Start : 12-Mar-2020 Active 24 hr donepezil hydrochloride 10 mg / memantine hydrochloride 28 mg extended release oral capsule (2 sources) U-jgkgzb-V-aspart ate Receptor Antagonist Start: 09-14-2022 End: 01-11-2023 take 1 capsule by mouth once daily memantine-donepezi L 28-10 mg daniel,Gurdeep quintero 24hr Indications: 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 behavioral [...] [Urinary tract infection, site not specified] Onset: 01-10-2025 Episodic Past or Other Problems Problem Classification [...] on 11-07-2024 Bilirubin.direct [Mass/Vol] 0.19 mg/dL 0.00-0.30 [facility] Bilirubin, totalOrdered By: Chau Smallwood on 11-07-2024 Bilirubin [Mass/Vol] 0.33 mg/dL 0.00-1.30 [facility] Hemoglobin A1c percentageOrd ered By: Chau Smallwood on 11-07-2024 HbA1c (Bld) [Mass fraction] 6.4 % High <5.7 [facility] Comment on above: Normal < 5.7 % Predi abetic 5.7 - 6.4 % Diabetic >or= 6.5 % Please note range changes. Laboratory - Chemistry and C hemistry - challengeOrdered By: Chau Smallwood on 11-07-2024 AST [Catalytic activity/Vol] 18 U/L <38 [facility] Serum globulin measurementOr dered By: Chau Smallwood on 11-07-2024 Globulin (S) [Mass/Vol] 2.2 g/dL 2.2-4.2 [facility] Serum or plasma alanine yepez otransferase (ALT) measurementOrdered By: Chau Smallwood on 11-07-2024 ALT [Catalytic activity/Vol] 11 U/L <47 [facility] Serum or plasma albumin lisa urement (mass/volume)Ordered By: Chau Smallwood on 11-07-2024 Albumin [Mass/Vol] 3.5 g/dL 3.4-4.8 [facility] Serum or plasma alkaline donavan sphatase measurementOrdered By: Chau Smallwood on 11-07-2024 ALP [Catalytic activity/Vol] 70 U/L 40-129 [facility] Total proteinOrdered By: Sam Smallwood on 11-07-2024 Protein [Mass/Vol] 5.7 g/dL Low 5.9-8.4 [facility] Absolute lymphocyte countOrd ered By: Omarefeyessy Shepardgurdeep on 10-27-2024 Lymphocytes Auto (Unsp spec) [#/Vol] 1.40 10*3/uL 0.83-4.51 [facility] Absolute neutrophil countOrd ered By: Efefeongernie Hortamale on 10-27-2024 Neutrophils (Bld) [#/Vol] 5.1 10*3/uL 2.0-7.7 [facility] Anion gap in Serum or Plasma Ordered By: Chau Hortamale on 10-27-2024 Anion gap [Moles/Vol] 13 mmol/L 5-15 [facility] Automated lymphocyte count a s percentage of total leukocytesOrdered By: Chau Hortamalgurdeep on 10-27-2024 Lymphocytes/100 WBC Auto (Unsp spec) 18.6 % Low 19-41 [facility] BUN/creatinine ratioOrdered By: Chau Hortamale on 10-27-2024 Urea nitrogen/Creatinine [Mass ratio] 24.8 mg/mg High 10-20 [facility] Basophil percentageOrdered B y: Omarefeyessy Mychalmale on 10-27-2024 Basophils/100 WBC (Bld) 0.4 % 0-1 [facility] Carbon dioxide, total [Moles /volume] in Central venous bloodOrdered By: Chau Smallwood on 10-27-2024 CO2 [Moles/Vol] 22.9 mmol/L 21.0-32.0 [facility] Chloride assayOrdered By: Ef efeyessy Smallwood on 10-27-2024 Chloride [Moles/Vol] 103 mmol/L 98-108 [facility] Eosinophil percentageOrdered By: Chau Hortamale on 10-27-2024 Eosinophils/100 WBC (Bld) 1.9 % 0-5 [facility] Erythrocyte distribution wid th ratioOrdered By: Erasmoongbe Mychalmale on 10-27-2024 Erythrocyte distribution width (RBC) [Ratio] 13.2 % 11.6-14.6 [facility] Erythrocyte distribution wid th standard deviationOrdered By: Erasmoongbe Cl on 10-27-2024 Erythrocyte distribution width (RBC) [Ratio] 43.2 fl 35.1-43.9 [facility] Glomerular filtration rate ( GFR) estimation/1.73 sq m using serum, plasma, or whole bOrdered By: Chau Smallwood on 10-27-2024 GFR/1.73 sq M.predicted among non-blacks MDRD (S/P/Bld) [Vol rate/Area] 55 mL/min/{1.73_m2} Low >60 [facility] Comment on above: mL/min/1.73m2 CKD-EP I Creatinine Equation (2020) Hematocrit Auto (Bld) [Volum e fraction]Ordered By: Chau Smallwood on 10-27-2024 Hematocrit (Bld) [Volume fraction] 39.9 % Low 40-54 [facility] Hemoglobin measurementOrdere d By: Chau Smallwood on 10-27-2024 Hemoglobin (Bld) [Mass/Vol] 13.5 g/dL 13.0-16.5 [facility] Immature granulocytes/100 WB C Auto (Bld)Ordered By: Chau Smallwood on 10-27-2024 Immature granulocytes/100 WBC (Bld) 0.400 % 0.0-0.9 [facility] Comment on above: IG% - Immature Granu locytes (promyelocytes, myelocytes and metamyelocytes) > 1% indicates that a LEFT SHIFT is Present. MCV (mean corpuscular volume ) determinationOrdered By: Chau Smallwood 10-27-2024 MCV (RBC) [Entitic vol] 89.3 fL 80-94 [facility] Mean corpuscular hemoglobin (MCH) determinationOrdered By: Chau Smallwood on 10-27-2024 MCH (RBC) [Entitic mass] 30.2 pg 27.0-32.0 [facility] Mean corpuscular hemoglobin concentration (MCHC) determinationOrdered By: Chau Smallwood on 10-27-2024 MCHC (RBC) [Mass/Vol] 33.8 g/dL 32-36 [facility] Mean platelet volume determi nationOrdered By: Chau Smallwood 10-27-2024 Platelet mean volume (Bld) [Entitic vol] 10.3 fL 6.2-12.0 [facility] Monocyte percentageOrdered B y: Chau Smallwood on 10-27-2024 Monocytes/100 WBC (Bld) 10.9 % High 0-10 [facility] Neutrophil percentageOrdered By: Chau Smallwood on 10-27-2024 Neutrophils/100 WBC (Bld) 67.8 % 47-70 [facility] Nucleated red blood cell per centageOrdered By: Chau Smallwood on 10-27-2024 Nucleated RBC/100 WBC (Bld) [Ratio] 0 % 0-5 [facility] Platelet countOrdered By: Omar dove Mychalcarmelo on 10-27-2024 Platelets (Bld) [#/Vol] 149 10*3/uL Low 150-450 [facility] Potassium measurement (mass/ volume)Ordered By: Omarefealinaernie Hortamalgurdeep on 10-27-2024 Potassium (Unsp spec) [Mass/Vol] 4.5 mmol/L 3.3-5.1 [facility] RBC Auto (Bld) [#/Vol]Ordere d By: Chau Smallwood on 10-27-2024 RBC (Bld) [#/Vol] 4.47 10*6/uL Low 4.6-6.2 [facility] Serum creatinine measurement (mass/volume)Ordered By: Omarefealinaernie Hortamalgurdeep on 10-27-2024 Creatinine [Mass/Vol] 1.30 mg/dL High 0.70-1.20 [facility] Serum glucose measurement (m ass/volume)Ordered By: Omarefealinaernie Hortamalgurdeep on 10-27-2024 Glucose [Mass/Vol] 95 mg/dL 70-99 [facility] Serum or plasma calcium lisa urement (mass/volume)Ordered By: Omarefeyessy Mychalmalgurdeep on 10-27-2024 Calcium [Mass/Vol] 9.3 mg/dL 7.6-11.0 [facility] Serum or plasma urea nitroge n measurement (mass/volume)Ordered By: Omarderrell Hortamalgurdeep on 10-27-2024 Urea nitrogen [Mass/Vol] 32 mg/dL High 4-19 [facility] Sodium levelOrdered By: Erasmo monetflash Cl on 10-27-2024 Sodium [Moles/Vol] 138 mmol/L 133-145 [facility] White blood cell (WBC) count Ordered By: Chau Smallwood on 10-27-2024 WBC (Bld) [#/Vol] 7.5 10*3/uL 4.4-11.0 [facility] Anion gap in Serum or Plasma Ordered By: Chau Smallwood on 10-02-2024 Anion gap [Moles/Vol] 11 mmol/L 5-15 [facility] BUN/creatinine ratioOrdered By: Chau Smallwood on 10-02-2024 Urea nitrogen/Creatinine [Mass ratio] 19.5 mg/mg 10- [facility] Carbon dioxide, total [Moles /volume] in Central venous bloodOrdered By: Chau Smallwood on 10-02-2024 CO2 [Moles/Vol] 24.2 mmol/L 21.0-32.0 [facility] Chloride assayOrdered By: Omar Smallwood on 10-02-2024 Chloride [Moles/Vol] 102 mmol/L 98-108 [facility] Glomerular filtration rate ( GFR) estimation/1.73 sq m using serum, plasma, or whole bOrdered By: Chau Smallwood on 10-02-2024 GFR/1.73 sq M.predicted among non-blacks MDRD (S/P/Bld) [Vol rate/Area] 59 mL/min/{1.73_m2} Low >60 [facility] Comment on above: mL/min/1.73m2 CKD-EP I Creatinine Equation (2020) Potassium measurement (mass/ volume)Ordered By: Chau Smallwood on 10-02-2024 Potassium (Unsp spec) [Mass/Vol] 4.8 mmol/L 3.3-5.1 [facility] Serum creatinine measurement (mass/volume)Ordered By: Chau Smallwood on 10-02-2024 Creatinine [Mass/Vol] 1.22 mg/dL High 0.70-1.20 [facility] Serum glucose measurement (m ass/volume)Ordered By: Chau Smallwood on 10-02-2024 Glucose [Mass/Vol] 119 mg/dL High 70-99 [facility] Serum or plasma calcium lisa urement (mass/volume)Ordered By: Omarefealinaernie Hortamalgurdeep on 10-02-2024 Calcium [Mass/Vol] 9.5 mg/dL 7.6-11.0 [facility] Serum or plasma urea nitroge n measurement (mass/volume)Ordered By: Chau Hortamalgurdeep on 10-02-2024 Urea nitrogen [Mass/Vol] 24 mg/dL High 4-19 [facility] Sodium levelOrdered By: Erasmo krishnamurthy Mychalmalgurdeep on 10-02-2024 Sodium [Moles/Vol] 137 mmol/L 133-145 [facility] Absolute lymphocyte countOrd ered By: Omarefealinaernie Hortamalgurdeep on 08-22-2024 Lymphocytes Auto (Unsp spec) [#/Vol] 2.18 10*3/uL 0.83-4.51 [facility] Absolute neutrophil countOrd ered By: Omarderrell Hortamalgurdeep on 08-22-2024 Neutrophils (Bld) [#/Vol] 3.9 10*3/uL 2.0-7.7 [facility] Anion gap in Serum or Plasma Ordered By: Chau Hortamalgurdeep on 08-22-2024 Anion gap [Moles/Vol] 11 mmol/L 5-15 [facility] Automated lymphocyte count a s percentage of total leukocytesOrdered By: Chau Smallwood on 08-22-2024 Lymphocytes/100 WBC Auto (Unsp spec) 31.1 % 19-41 [facility] BUN/creatinine ratioOrdered By: Chau Hortamalgurdeep on 08-22-2024 Urea nitrogen/Creatinine [Mass ratio] 23.3 mg/mg High 10-20 [facility] Basophil percentageOrdered B y: Omarefealinaernie Hortamalgurdeep on 08-22-2024 Basophils/100 WBC (Bld) 0.6 % 0-1 [facility] Bilirubin, totalOrdered By: Omarderrell Hortamalgurdeep on 08-22-2024 Bilirubin [Mass/Vol] 0.42 mg/dL 0.00-1.30 [facility] Calculated very low density lipoprotein (VLDL) cholesterol measurementOrdered By: Chau Smallwood on 08-22-2024 Calculated very low density lipoprotein (VLDL) cholesterol measurement 11 mg/dL 5-40 [facility] Carbon dioxide, total [Moles /volume] in Central venous bloodOrdered By: Chau Smallwood on 08-22-2024 CO2 [Moles/Vol] 25.7 mmol/L 21.0-32.0 [facility] Chloride assayOrdered By: Omar Smallwood on 08-22-2024 Chloride [Moles/Vol] 99 mmol/L 98-108 [facility] Eosinophil percentageOrdered By: Chau Smallwood on 08-22-2024 Eosinophils/100 WBC (Bld) 2.0 % 0-5 [facility] Erythrocyte distribution wid th ratioOrdered By: Chau Smallwood on 08-22-2024 Erythrocyte distribution width (RBC) [Ratio] 13.0 % 11.6-14.6 [facility] Erythrocyte distribution wid th standard deviationOrdered By: Chau Smallwood on 08-22-2024 Erythrocyte distribution width (RBC) [Ratio] 43.0 fl 35.1-43.9 [facility] Glomerular filtration rate ( GFR) estimation/1.73 sq m using serum, plasma, or whole bOrdered By: Chau Smallwood on 08-22-2024 GFR/1.73 sq M.predicted among non-blacks MDRD (S/P/Bld) [Vol rate/Area] 52 mL/min/{1.73_m2} Low >60 [facility] Comment on above: mL/min/1.73m2 CKD-EP I Creatinine Equation (2020) Hematocrit Auto (Bld) [Volum e fraction]Ordered By: Chau Smallwood on 08-22-2024 Hematocrit (Bld) [Volume fraction] 41.0 % 40-54 [facility] Hemoglobin A1c percentageOrd ered By: Chau Smallwood on 08-22-2024 HbA1c (Bld) [Mass fraction] 6.5 % High <5.7 [facility] Comment on above: Normal < 5.7 % Predi abetic 5.7 - 6.4 % Diabetic >or= 6.5 % Please note range changes. Hemoglobin measurementOrdere d By: Chau Smallwood on 08-22-2024 Hemoglobin (Bld) [Mass/Vol] 13.7 g/dL 13.0-16.5 [facility] Immature granulocytes/100 WB C Auto (Bld)Ordered By: Chau Smallwood on 08-22-2024 Immature granulocytes/100 WBC (Bld) 0.300 % 0.0-0.9 [facility] Comment on above: IG% - Immature Granu locytes (promyelocytes, myelocytes and metamyelocytes) > 1% indicates that a LEFT SHIFT is Present. LDL calc ser/plasOrdered By: Chau Smallwood on 08-22-2024 Cholesterol in LDL [Mass/Vol] 42 mg/dL [facility] Comment on above: Mlanggboes=423-342 m g/dL & Higher Khxa=353 mg/dL or greater Laboratory - Chemistry and C hemistry - challengeOrdered By: Chau Smallwood on 08-22-2024 AST [Catalytic activity/Vol] 20 U/L <38 [facility] MCV (mean corpuscular volume ) determinationOrdered By: Chau Smallwood on 08-22-2024 MCV (RBC) [Entitic vol] 89.9 fL 80-94 [facility] Mean corpuscular hemoglobin (MCH) determinationOrdered By: Erasmoo'fallonernie Smallwood on 08-22-2024 MCH (RBC) [Entitic mass] 30.0 pg 27.0-32.0 [facility] Mean corpuscular hemoglobin concentration (MCHC) determinationOrdered By: Chau Smallwood on 08-22-2024 MCHC (RBC) [Mass/Vol] 33.4 g/dL 32-36 [facility] Mean platelet volume determi nationOrdered By: Chau Smallwood on 08-22-2024 Platelet mean volume (Bld) [Entitic vol] 9.7 fL 6.2-12.0 [facility] Monocyte percentageOrdered B y: Chau Smallwood on 08-22-2024 Monocytes/100 WBC (Bld) 10.3 % High 0-10 [facility] Neutrophil percentageOrdered By: Chau Smallwood on 08-22-2024 Neutrophils/100 WBC (Bld) 55.7 % 47-70 [facility] Nucleated red blood cell per centageOrdered By: Chua Smallwood on 08-22-2024 Nucleated RBC/100 WBC (Bld) [Ratio] 0 % 0-5 [facility] Platelet countOrdered By: Omar Smallwood on 08-22-2024 Platelets (Bld) [#/Vol] 180 10*3/uL 150-450 [facility] Potassium measurement (mass/ volume)Ordered By: Chau Smallwood on 08-22-2024 Potassium (Unsp spec) [Mass/Vol] 4.5 mmol/L 3.3-5.1 [facility] RBC Auto (Bld) [#/Vol]Ordere d By: Chau Smallwood on 08-22-2024 RBC (Bld) [#/Vol] 4.56 10*6/uL Low 4.6-6.2 [facility] Screening total cholesterol/ high density lipoprotein (HDL) cholesterol ratioOrdered By: Chau Smallwood on 08-22-2024 Cholesterol.total/Cho lesterol in HDL [Mass ratio] 1.90 {ratio} [facility] Serum creatinine measurement (mass/volume)Ordered By: Chau Smallwood on 08-22-2024 Creatinine [Mass/Vol] 1.35 mg/dL High 0.70-1.20 [facility] Serum globulin measurementOr dered By: Chau Smallwood on 08-22-2024 Globulin (S) [Mass/Vol] 2.5 g/dL 2.2-4.2 [facility] Serum glucose measurement (m ass/volume)Ordered By: Chau Smallwood on 08-22-2024 Glucose [Mass/Vol] 117 mg/dL High 70-99 [facility] Serum or plasma alanine yepez otransferase (ALT) measurementOrdered By: Chau Smallwood on 08-22-2024 ALT [Catalytic activity/Vol] 13 U/L <47 [facility] Serum or plasma albumin lisa urement (mass/volume)Ordered By: Chau Smallwood on 08-22-2024 Albumin [Mass/Vol] 4.2 g/dL 3.4-4.8 [facility] Serum or plasma albumin/glob ulin mass ratioOrdered By: ernie Shepard on 08-22-2024 Albumin/Globulin [Mass ratio] 1.7 {ratio} 0.9-2.4 [facility] Serum or plasma alkaline donavan sphatase measurementOrdered By: yessy Smallwood 08-22-2024 ALP [Catalytic activity/Vol] 91 U/L 40-129 [facility] Serum or plasma calcium lisa urement (mass/volume)Ordered By: Chau Smallwood 08-22-2024 Calcium [Mass/Vol] 9.7 mg/dL 7.6-11.0 [facility] Serum or plasma cholesterol in HDL measurement (mass/volume)Ordered By: Chau Smallwood 08-22-2024 Cholesterol in HDL [Mass/Vol] 59 mg/dL >40 [facility] Comment on above: National Cholesterol Education Program (NCEP) guidelines:<40 mg/dL: Low HDL-cholesterol (major risk factor for CHD)>= 60 mg/dL: High HDL-cholesterol (negative risk factor for CHD)HDL-cholesterol is affected by a number of factors, e.g. smoking, exercise, hormones, sex and age. Serum or plasma cholesterol measurement (mass/volume)Ordered By: Chau Smallwood 08-22-2024 Cholesterol [Mass/Vol] 112 mg/dL <201 [facility] Comment on above: Cholesterol level, D esirable <200 mg/dLBorderline high cholesterol 200-239 mg/dLHigh cholesterol >=240 mg/dLRecommendations of the NCEP Adult Treatment Panel for the following risk-cutoff thresholds for the [place] population. Serum or plasma urea nitroge n measurement (mass/volume)Ordered By: Chau Smallwood 08-22-2024 Urea nitrogen [Mass/Vol] 32 mg/dL High 4-19 [facility] Sodium levelOrdered By: Erasmo monetflash Cl 08-22-2024 Sodium [Moles/Vol] 136 mmol/L 133-145 [facility] Total proteinOrdered By: Samgurdeep lai Cl on 08-22-2024 Protein [Mass/Vol] 6.7 g/dL 5.9-8.4 [facility] Triglycerides measurementOrd ered By: Sabihaernie Hortamalgurdeep on 08-22-2024 Triglyceride [Mass/Vol] 55 mg/dL <199 [facility] Comment on above: The drugs N-Acetylcy steine and Metamizole may falsely depress this assay. Normal range: <150 mg/dLBorderline High: 150-199 mg/dLHigh: 200-499 mg/dLVery High: >500 mg/dL White blood cell (WBC) count Ordered By: Chau Smallwood on 08-22-2024 WBC (Bld) [#/Vol] 7.0 10*3/uL 4.4-11.0 [facility] CBC (INCLUDES DIFF/PLT)on Basophils (Bld) [#/Vol] 0.049 10*3/uL Normal 0-200 [facility] Comment on above: Performed By: #### 9 27, 1499, 88645, 7600, 26177, 70101 #### [facility] [place] [address] Move Coordinator: Nash Ames MD Basophils/100 WBC (Bld) 0.6 % Normal [facility] Comment on above: Performed By: #### 9 27, 6376, 69511, 7600, 84273, 62171 #### [facility] [place] [address] Move Coordinator: Nash Ames MD Eosinophils (Bld) [#/Vol] 0.251 10*3/uL Normal 15-500 [facility] Comment on above: Performed By: #### 9 27, 6399, 05071, 7600, 55071, 83580 #### [facility] [place] [address] Move Coordinator: Nash Ames MD Eosinophils/100 WBC (Bld) 3.1 % Normal [facility] Comment on above: Performed By: #### 9 , 6399, 92405, 7600, 11663, #### [facility] of [address], [address] [place] [address] Move Coordinator: Nash Ames MD Erythrocyte distribution width (RBC) [Ratio] 13.0 % Normal 11.0-15.0 [facility] Comment on above: Performed By: #### 9 27, 6399, 74900, 7600, 59801, #### [facility] of [address], [address] [place] [address] Move Coordinator: Nash Ames MD Hematocrit (Bld) [Volume fraction] 47.6 % Normal 38.5-50.0 [facility] Comment on above: Performed By: #### 9 27, 6399, 30886, 7600, 70273, #### [facility] of [address], [address] [place] [address] Move Coordinator: Nash Ames MD Hemoglobin (Bld) [Mass/Vol] 15.3 g/dL Normal 13.2-17.1 [facility] Comment on above: Performed By: #### 9 27, 6399, 15240, 7600, 80350, #### [facility] of [place] [address] Move Coordinator: Nash Ames MD Lymphocytes (Bld) [#/Vol] 1.855 10*3/uL Normal 850-3900 [facility] Comment on above: Performed By: #### 9 27, 6399, 83167, 7600, 54930, #### [facility] of [address], [address] [place], [place] [address] Move Coordinator: Nash Ames MD Lymphocytes/100 WBC (Bld) 22.9 % Normal [facility] Comment on above: Performed By: #### 9 27, 6399, 23026, 7600, 30361, #### [facility] [place] [address] Move Coordinator: Nash Ames MD MCH (RBC) [Entitic mass] 30.1 pg Normal 27.0-33.0 [facility] Comment on above: Performed By: #### 9 , 63, 61734, 7600, 01562, #### [facility] of [address], [address] [place] [address] Move Coordinator: Nash Ames MD MCHC (RBC) [Mass/Vol] 32.1 g/dL Normal 32.0-36.0 [facility] Comment on above: Result Comment: For adults, a slight decrease in the calculated MCHC value (in the range of 30 to 32 g/dL) is most likely not clinically significant; however, it should be interpreted with caution in correlation with other red cell parameters and the patient's clinical condition. Performed By: #### 9 , 63, 04850, 7600, 96124, #### [facility] [place] [address] Move Coordinator: Nash Ames MD MCV (RBC) [Entitic vol] 93.5 fL Normal 80.0-100.0 [facility] Comment on above: Performed By: #### 9 , 63, 27023, 7600, 44129, #### [facility] [place] [address] Move Coordinator: Nash Ames MD Monocytes (Bld) [#/Vol] 0.826 10*3/uL Normal 200-950 [facility] Comment on above: Performed By: #### 9 , 63, 60358, 7600, 25462, #### [facility] [place] [address] Move Coordinator: Nash Ames MD Monocytes/100 WBC (Bld) 10.2 % Normal [facility] Comment on above: Performed By: #### 9 , 63, 47315, 7600, 86064, #### [facility] [place] [address] Move Coordinator: Nash Ames MD Neutrophils (Bld) [#/Vol] 5.119 10*3/uL Normal 8490-4466 [facility] Comment on above: Performed By: #### 9 27, 6399, 80308, 7600, 44802, #### [facility] [place] [address] Move Coordinator: Nash Ames MD Neutrophils/100 WBC (Bld) 63.2 % Normal [facility] Comment on above: Performed By: #### 9 27, 6399, 40817, 7600, 13336, #### [facility] [place] [address] Move Coordinator: Nash Ames MD Platelet mean volume (Bld) [Entitic vol] 9.7 fL Normal 7.5-12.5 [facility] Comment on above: Performed By: #### 9 27, 63, 52832, 7600, 05232, #### [facility] [place] [address] Move Coordinator: Nash Ames MD Platelets (Bld) [#/Vol] 180 10*3/uL Normal 140-400 [facility] Comment on above: Performed By: #### 9 27, 63, 35979, 7600, 12719, #### [facility] [place] [address] Move Coordinator: Nash Ames MD RBC (Bld) [#/Vol] 5.09 10*6/uL Normal 4.20-5.80 [facility] Comment on above: Performed By: #### 9 27, 63, 67918, 7600, 44331, #### [facility] [place] [address] Move Coordinator: Nash Ames MD WBC (Bld) [#/Vol] 8.1 10*3/uL Normal 3.8-10.8 [facility] Comment on above: Performed By: #### 9 , 6399, 41691, 7600, 33896, #### [facility] [place] [address] Move Coordinator: Nash Ames MD COMPREHENSIVE METABOLIC PANE L W/ANION GAPon 07-16-2024 Albumin [Mass/Vol] 4.5 g/dL Normal 3.6-5.1 [facility] Comment on above: Performed By: #### 9 27, 6399, 10326, 7600, 72576, #### [facility] [place] [address] Move Coordinator: Nash Ames MD ALP [Catalytic activity/Vol] 70 U/L Normal 35-144 [facility] Comment on above: Performed By: #### 9 27, 6399, 30128, 7600, 42013, #### [facility] [place] [address] Move Coordinator: Nash Ames MD ALT [Catalytic activity/Vol] 14 U/L Normal 9-46 [facility] Comment on above: Performed By: #### 9 27, 6399, 82654, 7600, 85660, #### [facility] [place] [address] Move Coordinator: Nash Ames MD AST [Catalytic activity/Vol] 16 U/L Normal 10-35 [facility] Comment on above: Performed By: #### 9 27, 63, 39269, 7600, 71989, #### [facility] [place] [address] Move Coordinator: Nash Ames MD Bilirubin [Mass/Vol] 0.7 mg/dL Normal 0.2-1.2 [facility] Comment on above: Performed By: #### 9 27, 6399, 97500, 7600, 46517, 55102 #### [facility] [place] [address] Move Coordinator: Nash Ames MD Calcium [Mass/Vol] 9.8 mg/dL Normal 8.6-10.3 [facility] Comment on above: Performed By: #### 9 27, 63, 39823, 7600, 68208, #### [facility] [place] [address] Move Coordinator: Nash Ames MD Chloride [Moles/Vol] 98 mmol/L Normal 98-110 [facility] Comment on above: Performed By: #### 9 27, 63, 28108, 7600, 54376, #### [facility] [place] [address] Move Coordinator: Nash Ames MD CO2 [Moles/Vol] 30 mmol/L Normal 20-32 [facility] Comment on above: Performed By: #### 9 , 63, 91929, 7600, , #### [facility] [place] [address] Move Coordinator: Nash Ames MD Creatinine [Mass/Vol] 1.18 mg/dL Normal 0.70-1.[address] [facility] Comment on above: Performed By: #### 9 27, 63, 78403, 7600, 78829, #### [facility] [place] [address] Move Coordinator: Nash Ames MD ELECTROLYTE BALANCE 8 mmol/L (calc) Normal 7-17 [facility] Comment on above: Performed By: #### 9 27, 63, 58668, 7600, 53202, #### [facility] [place] [address] Move Coordinator: Nash Ames MD GFR/1.73 sq M.predicted among non-blacks MDRD (S/P/Bld) [Vol rate/Area] 62 mL/min/{1.73_m2} Normal > OR = 60 [facility] Comment on above: Performed By: #### 9 , 63, 08611, 7600, 77774, #### [facility] of [address], [address] [place] [address] Move Coordinator: Nash Ames MD Glucose [Mass/Vol] 97 mg/dL Normal 65-99 [facility] Comment on above: Result Comment: Fasting reference interval Performed By: #### 9 27, 6399, 15884, 7600, 82906, 54826 #### [facility] of [address], [address] [place] [address] Move Coordinator: Nash Ames MD Potassium [Moles/Vol] 4.8 mmol/L Normal 3.5-5.3 [facility] Comment on above: Performed By: #### 9 27, 6399, 25943, 7600, 99005, #### [facility] [place] [address] Move Coordinator: Nash Ames MD Protein [Mass/Vol] 7.1 g/dL Normal 6.1-8.1 [facility] Comment on above: Performed By: #### 9 27, 6399, 76505, 7600, 35829, 71381 #### [facility] [place] [address] Move Coordinator: Nash Ames MD Sodium [Moles/Vol] 136 mmol/L Normal 135-146 [facility] Comment on above: Performed By: #### 9 27, 6399, 29250, 7600, 25487, #### [facility] [place] [address] Move Coordinator: Nash Ames MD Urea nitrogen [Mass/Vol] 23 mg/dL Normal 7-25 [facility] Comment on above: Performed By: #### 9 27, 6399, 82661, 7600, 13768, 76023 #### [facility] [place] [address] Move Coordinator: Nash Ames MD HEMOGLOBIN A1c WITH eAGon eAG (mmol/L) 7.4 mmol/L Normal [facility] Comment on above: Performed By: #### 9 27, 6399, 91220, 7600, 41103, 44359 #### [facility] [place] [address] Move Coordinator: Nash Ames MD HbA1c (Bld) [Mass fraction] [...] children. Performed By: #### 9 27, 6399, 11829, 7600, 08228, #### [facility] [address], [address] [place] [address] Move Coordinator: Nash Ames MD Magnesium [Mass/Vol] 134 mg/dL Normal [facility] Comment on above: Performed By: #### 9 27, 6399, 06670, 7600, 32770, 57794 #### [facility] [place] [address] Move Coordinator: Nash Ames MD LIPID PANEL, [facility] 05 Cholesterol [Mass/Vol] 126 mg/dL Normal <200 [facility] Comment on above: Order Comment: FASTI NG:YES FASTING: YES Performed By: #### 9 27, 6399, 32299, 7600, 92106, 74814 #### [facility] [place] [address] Move Coordinator: Nash Ames MD Cholesterol in HDL [Mass/Vol] 62 mg/dL Normal > OR = 40 [facility] Comment on above: Order Comment: FASTI NG:YES FASTING: YES Performed By: #### 9 27, 6399, 02504, 7600, 30174, 60681 #### [facility] [address], [address] [place] [address] Move Coordinator: Nash Ames MD Cholesterol in LDL [Mass/Vol] [...] LDL-C. Timothy SS et al. VIRGILIO. 2013;310(19): 8212-1422 (http://education.[employer]faq/DCU721) Performed By: #### 9 27, 6399, 25163, 7600, 98052, 05930 #### [facility] [address], [address] [place] [address] Move Coordinator: Nash Ames MD Cholesterol.total/Cho lesterol in HDL [Mass ratio] 2.0 {ratio} Normal <5.0 [facility] Comment on above: Order Comment: FASTI NG:YES FASTING: YES Performed By: #### 9 27, 6399, 00356, 7600, 24349, 62522 #### [facility] [address], [address] [place] [address] Move Coordinator: Nash Ames MD NON HDL CHOLESTEROL 64 mg/dL (calc) Normal <130 [facility] Comment on above: Order Comment: FASTI NG:YES FASTING: YES Result Comment: For patients with diabetes plus 1 major ASCVD risk factor, treating to a non-HDL-C goal of <100 mg/dL (LDL-C of <70 mg/dL) is considered a therapeutic option. Performed By: #### 9 27, 6399, 71633, 7600, 95038, 46334 #### [facility] [address], [address] [place] [address] Move Coordinator: Nash Ames MD Triglyceride [Mass/Vol] 92 mg/dL Normal <150 [facility] Comment on above: Order Comment: FASTI NG:YES FASTING: YES Performed By: #### 9 27, 6399, 76186, 7600, 78403, #### [facility] [address], [address] [place] [address] Move Coordinator: Nash Ames MD PSA, TOTAL, MONITORINGon PSA, [...] disease. Performed By: #### 9 27, 6399, 90594, 7600, 91998, #### [facility] [address], [address] [place] [address] Move Coordinator: Nash Ames MD TSH W/REFLEX TO FT4on 2024 TSH W/REFLEX TO FT4 1.70 mIU/L Normal 0.40-4.50 [facility] Comment on above: Performed By: #### 9 27, 6399, 55206, 7600, 11426, #### [facility] [address], [address] [place] [address] Move Coordinator: Nash Ames MD VITAMIN B12on 07-16-2024 Cobalamin [...] have symptoms. Performed By: #### 9 27, 5299, 68521, 7600, 23046, 53900 #### [facility] [address] [facility], [address] [place] [address] Move Coordinator: Nash Ames MD CBC panel Auto (Bld)on 01-19 Erythrocyte distribution width (RBC) [Ratio] 13.4 % Normal 11.5-14.5 [facility] Comment on above: Performed By: #### 5 8410-2 #### CECY WONG (48546) [facility] ([facility]) [address] [place] [address] Hematocrit (Bld) [Volume fraction] 43.8 % Normal 41.0-52.0 [facility] Comment on above: Performed By: #### 5 8410-2 #### CECY WONG ([id number]) [facility] ([facility]) [address] [place] [address] 09210 Hemoglobin (Bld) [Mass/Vol] 14.1 g/dL Normal 13.5-17.5 [facility] Comment on above: Performed By: #### 5 8410-2 #### CECY WONG ([id number]) [facility] ([facility]) [address] [place] [address] 70173 MCH (RBC) [Entitic mass] 29.7 pg Normal 26.0-34.0 [facility] Comment on above: Performed By: #### 5 8410-2 #### CECY WONG ([id number]) [facility] ([facility]) [address] [place] [address] 67755 MCHC (RBC) [Mass/Vol] 32.2 g/dL Normal 32.0-36.0 [facility] Comment on above: Performed By: #### 5 8410-2 #### CECY WONG (00403) [facility] ([facility]) [address] [place] [address] 43919 MCV (RBC) [Entitic vol] 92 fL Normal 80-100 [facility] Comment on above: Performed By: #### 5 8410-2 #### CECY WONG (94455) [facility] ([facility]) [address] [place] [address] 95605 Nucleated RBC/100 WBC (Bld) [Ratio] 0.0 /100 WBCs Normal 0.0-0.0 [facility] Comment on above: Performed By: #### 5 8410-2 #### CECY WONG ([id number]) [facility] ([facility]) [address] [place] [address] 10176 Platelets (Bld) [#/Vol] 197 x10*3/uL Normal 150-450 [facility] Comment on above: Performed By: #### 5 8410-2 #### CECY WONG ([id number]) [facility] ([facility]) [address] [place] [address] 19068 RBC (Bld) [#/Vol] 4.74 x10*6/uL Normal 4.50-5.90 [facility] Comment on above: Performed By: #### 5 8410-2 #### CECY WONG ([id number]) [facility] ([facility]) [address] [place] [address] 87401 WBC (Bld) [#/Vol] 8.0 x10*3/uL Normal 4.4-11.3 [facility] Comment on above: Performed By: #### 5 8410-2 #### CECY WONG (21189) [facility] ([facility]) [address] [place] [address] 28941 Cobalaminson 01-20-2024 Cobalamin (Vitamin B12) [Mass/Vol] 257 pg/mL Normal 211-911 [facility] Comment on above: Performed By: #### 2 132-9 #### HOLDEN Larosn (50924) [facility] ([facility]) [address] [place] [address] Comprehensive metabolic 2000 panelon 01-20-2024 Albumin BCP dye [Mass/Vol] 4.0 g/dL Normal 3.4-5.0 [facility] Comment on above: Performed By: #### 2 432-8 #### CECY WONG ([id number]) [facility] ([facility]) [address] [place] [address] ALP [Catalytic activity/Vol] 73 U/L Normal 33-136 [facility] Comment on above: Performed By: #### 2 432-8 #### CECY WONG (83572) [facility] ([facility]) [address] [place] [address] ALT With P-5'-P [Catalytic activity/Vol] 11 U/L Normal 10-52 [facility] Comment on above: Result Comment: [place] ents treated with Sulfasalazine may generate falsely decreased results for ALT. Performed By: #### 2 4322-8 #### CECY WONG (31091) [facility] ([facility]) [address] [place] [address] Anion gap [Moles/Vol] 13 mmol/L Normal 10-20 [facility] Comment on above: Performed By: #### 2 4322-8 #### CECY WONG (06052) [facility] ([facility]) [address] [place] [address] AST With P-5'-P [Catalytic activity/Vol] 12 U/L Normal 9-39 [facility] Comment on above: Performed By: #### 2 432-8 #### CECY WONG ([id number]) [facility] ([facility]) [address] [place] [address] Bilirubin [Mass/Vol] 0.6 mg/dL Normal 0.0-1.2 [facility] Comment on above: Performed By: #### 2 4322-8 #### CECY WONG (51024) [facility] ([facility]) [address] [place] [address] Calcium [Mass/Vol] 9.5 mg/dL Normal 8.6-10.3 [facility] Comment on above: Performed By: #### 2 432-8 #### CECY WONG (14031) [facility] ([facility]) [address] [place] [address] 47311 Chloride [Moles/Vol] 99 mmol/L Normal 98-107 [facility] Comment on above: Performed By: #### 2 4323-8 #### CECY WONG ([id number]) [facility] ([facility]) [facility] [place] [address] CO2 [Moles/Vol] 29 mmol/L Normal 21-32 [facility] Comment on above: Performed By: #### 2 4323-8 #### CECY WONG (03056) [facility] ([facility]) [address] [place] [address] 79260 Creatinine [Mass/Vol] 1.46 mg/dL High 0.50-1.30 [facility] Comment on above: Performed By: #### 2 4323-8 #### CECY WONG ([id number]) [facility] ([facility]) [address] [place] [address] 43569 Glomerular filtration rate/1.73 sq M.predicted 48 mL/min/1.73m*2 Low >60 [facility] Comment on above: Result Comment: Calc ulations of estimated GFR are performed using the 2020 CKD-EPI Study Refit equation without the race variable for the IDMS-Traceable creatinine methods. https://jasn.asnjournals.org/content/early//ASN.284067 6504 Performed By: #### 2 4323-8 #### CECY WONG (32226) [facility] ([facility]) [address] [place] [address] 65142 Glucose [Mass/Vol] 100 mg/dL High 74-99 [facility] Comment on above: Performed By: #### 2 4323-8 #### CECY WONG (35062) [facility] ([facility]) [address] [place] [address] 60404 Potassium [Moles/Vol] 5.0 mmol/L Normal 3.5-5.3 [facility] Comment on above: Performed By: #### 2 4323-8 #### CECY WONG (59264) [facility] ([facility]) [address] [place] [address] Protein [Mass/Vol] 6.4 g/dL Normal 6.4-8.2 [facility] Comment on above: Performed By: #### 2 4323-8 #### CECY WONG (78759) [facility] ([facility]) [address] [place] [address] Sodium [Moles/Vol] 136 mmol/L Normal 136-145 [facility] Comment on above: Performed By: #### 2 4323-8 #### CECY WONG (06300) [facility] ([facility]) [address] [place] [address] 93766 Urea nitrogen [Mass/Vol] 37 mg/dL High 6-23 [facility] Comment on above: Performed By: #### 2 4323-8 #### CECY WONG ([id number]) [facility] ([facility]) [address] [place] [address] 89447 HbA1c (Bld) [Mass fraction]o n 01-20-2024 Average glucose Estimated from glycated hemoglobin (Bld) [Mass/Vol] 131 mg/dL Normal Not Established [facility] Comment on above: Order Comment: Diagn osis of Diabetes-Adults Non-Diabetic: < or = 5.6% Increased risk for developing diabetes: 5.7-6.4% Diagnostic of diabetes: > or = 6.5% Performed By: #### 4 548-4 #### HOLDEN Larson ([id number]) [facility] ([facility]) [address] [place] [address] Hemoglobin A1c/Hemoglobin.to myles 01-20-2024 HbA1c (Bld) [Mass fraction] 6.2 % High See comment [facility] Comment on above: Order Comment: Diagn osis of Diabetes-Adults Non-Diabetic: < or = 5.6% Increased risk for developing diabetes: 5.7-6.4% Diagnostic of diabetes: > or = 6.5% Performed By: #### 4 548-4 #### HOLDEN Larson ([id number]) [facility] ([facility]) [address] [place], [place] [address] Lipid 1996 panelon 4 Cholesterol [Mass/Vol] 109 mg/dL Normal 0-199 [facility] Comment on above: Result Comment: Age [...] By: #### 2 4331-1 #### CECY WONG ([id number]) [facility] ([facility]) [address] [place] [address] 53498 Cholesterol in HDL [Mass/Vol] 46.0 mg/dL Normal [facility] Comment on above: Result Comment: Age Very Low Low Normal High 0-19 Y < 35 < 40 40-45 ---- 20-24 Y ---- < 40 >45 ---- >24 Y ---- < 40 40-60 >60 Performed By: #### 2 4331-1 #### CECY WONG (86066) [facility] ([facility]) [address] [place] [address] 98426 Cholesterol in LDL [Mass/Vol] 42 mg/dL Normal <=99 [facility] Comment on above: Result Comment: Near Borderline AGE Desirable Optimal High High Very High 0-19 Y 0 - 109 --- 110-129 >/= 130 ---- 20-24 Y 0 - 119 --- 120-159 >/= 160 ---- >24 Y 0 - 99 100-129 130-159 160-189 >/=190 Performed By: #### 2 4331-1 #### CECY WONG (72600) [facility] ([facility]) [address] [place] [address] 24761 Cholesterol in VLDL [Mass/Vol] 21 mg/dL Normal 0-40 [facility] Comment on above: Performed By: #### 2 4331-1 #### CECY WONG ([id number]) [facility] ([facility]) [address] [place] [address] 50461 CHOLESTEROL/HDL RATIO 2.4 Normal [facility] Comment on above: Result Comment: Ref Values Desirable < 3.4 High Risk > 5.0 Performed By: #### 2 4331-1 #### CECY WONG (22290) [facility] ([facility]) [address] [place] [address] 78857 NON HDL CHOLESTEROL 63 mg/dL Normal 0-149 [facility] Comment on above: Result Comment: Age Desirable Borderline High High Very High 0-19 Y 0 - 119 120 - 144 >/= 145 >/= 160 20-24 Y 0 - 149 150 - 189 >/= 190 ---- >24 Y 30 mg/dL above LDL Cholesterol goal Performed By: #### 2 4331-1 #### CECY WONG (34049) [facility] ([facility]) [address] [place] [address] 50071 Triglyceride [Mass/Vol] 106 mg/dL Normal 0-149 [facility] Comment on above: Result Comment: Age [...] By: #### 2 4331-1 #### CECY WONG ([id number]) [facility] ([facility]) [address] [place] [address] 74941 Prostate specific Agon 01-19 Prostate specific Ag [Mass/Vol] ng/mL Normal <=4.00 [facility] Comment on above: Order Comment: The F DA requires that the method used for PSA assay be reported to the physician. Values obtained with different assay methods must not be used interchangeably. This test was performed at [facility] using the [employer] PSA assay is a two-site immunoenzymatic sandwich assay. The assay is approved for measurement of prostate-specific antigen (PSA)in serum and may be used in conjunction with a digital rectal examination in men 50 years and older as an aid in detection of prostate cancer. 9-Fmbfv-fvuobgspm inhibitors (e.g. Proscar, Finasteride, Avodart, Dutasteride and Yessica) for the treatment of BPH have been shown to lower PSA levels by an average of 50% after 6 months of treatment. Performed By: #### 2 857-1 #### HOLDEN Larson ([id number]) [facility] ([facility]) [address] [place] [address] Comprehensive metabolic 2000 panelon 07-03-2023 Albumin BCP dye [Mass/Vol] 3.9 g/dL Normal 3.4-5.0 [facility] Comment on above: Performed By: #### 2 4323-8 #### CECY WONG ([id number]) [facility] ([facility]) [address] [place] [address] 65411 ALP [Catalytic activity/Vol] 62 U/L Normal 33-136 [facility] Comment on above: Performed By: #### 2 4323-8 #### CECY WONG (05959) [facility] ([facility]) [address] [place] [address] 94822 ALT With P-5'-P [Catalytic activity/Vol] 11 U/L Normal 10-52 [facility] Comment on above: Result Comment: [place] ents treated with Sulfasalazine may generate falsely decreased results for ALT. Performed By: #### 2 4323-8 #### CECY WONG (85055) [facility] ([facility]) [address] [place] [address] 81685 Anion gap [Moles/Vol] 12 mmol/L Normal 10-20 [facility] Comment on above: Performed By: #### 2 4323-8 #### CECY WONG (04420) [facility] ([facility]) [address] [place] [address] 68531 AST With P-5'-P [Catalytic activity/Vol] 13 U/L Normal 9-39 [facility] Comment on above: Performed By: #### 2 4323-8 #### CECY WONG (81126) [facility] ([facility]) [address] [place] [address] 27714 Bilirubin [Mass/Vol] 0.5 mg/dL Normal 0.0-1.2 [facility] Comment on above: Performed By: #### 2 4322-8 #### CECY WONG (01605) [facility] ([facility]) [address] [place] [address] 00172 Calcium [Mass/Vol] 9.6 mg/dL Normal 8.6-10.3 [facility] Comment on above: Performed By: #### 2 4322-8 #### CECY WONG (94509) [facility] ([facility]) [address] [place] [address] 80856 Chloride [Moles/Vol] 100 mmol/L Normal 98-107 [facility] Comment on above: Performed By: #### 2 4322-8 #### CECY WONG ([id number]) [facility] ([facility]) [address] [place] [address] 27968 CO2 [Moles/Vol] 29 mmol/L Normal 21-32 [facility] Comment on above: Performed By: #### 2 4323-8 #### CECY WONG ([id number]) [facility] ([facility]) [address] [place] [address] 18602 Creatinine [Mass/Vol] 1.59 mg/dL High 0.50-1.30 [facility] Comment on above: Performed By: #### 2 4323-8 #### CECY WONG ([id number]) [facility] ([facility]) [address] [place] [address] Glomerular filtration rate/1.73 sq M.predicted 43 mL/min/1.73m*2 Low >60 [facility] Comment on above: Result Comment: Calc ulations of estimated GFR are performed using the 2020 CKD-EPI Study Refit equation without the race variable for the IDMS-Traceable creatinine methods. https://jasn.asnjournals.org/content//ASN.814124 2467 Performed By: #### 2 4323-8 #### CECY WONG ([id number]) [facility] ([facility]) [address] [place] [address] Glucose [Mass/Vol] 142 mg/dL High 74-99 [facility] Comment on above: Performed By: #### 2 4323-8 #### CECY WONG ([id number]) [facility] ([facility]) [address] [place] [address] Potassium [Moles/Vol] 4.5 mmol/L Normal 3.5-5.3 [facility] Comment on above: Performed By: #### 2 4323-8 #### CECY WONG ([id number]) [facility] ([facility]) [address] [place] [address] Protein [Mass/Vol] 6.2 g/dL Low 6.4-8.2 [facility] Comment on above: Performed By: #### 2 4323-8 #### CECY WONG ([id number]) [facility] ([facility]) [address] [place] [address] Sodium [Moles/Vol] 136 mmol/L Normal 136-145 [facility] Comment on above: Performed By: #### 2 4323-8 #### CECY WONG ([id number]) [facility] ([facility]) [address] [place] [address] Urea nitrogen [Mass/Vol] 32 mg/dL High 6-23 [facility] Comment on above: Performed By: #### 2 4323-8 #### CECY WONG ([id number]) [facility] ([facility]) [address] [place] [address] HbA1c (Bld) [Mass fraction]o n 07-03-2023 Average glucose Estimated from glycated hemoglobin (Bld) [Mass/Vol] 134 mg/dL Normal Not Established [facility] Comment on above: Order Comment: Diagn osis of Diabetes-Adults Non-Diabetic: < or = 5.6% Increased risk for developing diabetes: 5.7-6.4% Diagnostic of diabetes: > or = 6.5% Monitoring of Diabetes Age (y)....................... Therapeutic Goal (%) Adults: >18.........................<7.0 Pediatrics: 13-18...................<7.5 Pediatrics: 7-12....................<8.0 Pediatrics: 0-6..................... 7.5-8.5 [place] [employer]. Diabetes Care 33(S1), Mar 2009 Performed By: #### 4 548-4 #### HOLDEN Larson ([id number]) [facility] ([facility]) [address] [place] [address] Hemoglobin A1c/Hemoglobin.to myles 07-03-2023 HbA1c (Bld) [Mass fraction] 6.3 % High see below [facility] Comment on above: Order Comment: Diagn osis of Diabetes-Adults Non-Diabetic: < or = 5.6% Increased risk for developing diabetes: 5.7-6.4% Diagnostic of diabetes: > or = 6.5% Monitoring of Diabetes Age (y)....................... Therapeutic Goal (%) Adults: >18.........................<7.0 Pediatrics: 13-18...................<7.5 Pediatrics: 7-12....................<8.0 Pediatrics: 0-6..................... 7.5-8.5 [place] [employer]. 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) HTN (hypertension) (401.9) (I10) Medication management (V58.69) (Z79.899) Prostate cancer (185) (C61) Orders HTN (hypertension) Comprehensive Metabolic Panel; Status:Active; Requested for:[id number]; Medication management Follow-up visit in 5 Months Outpatient Follow-up Status: Hold For - Scheduling Requested for: [id number] 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 Having some leaking urine that is better on the medication. 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 Eye: Not injected Respiratory: No respiratory distress. Symmetrical chest wall expans (more content not included)... 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.1,N13.8) Cervical spondylolysis (756.19) (M43.02) Coronary atherosclerosis of ramona coronary artery (414.01) (I25.10) 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, psychotic disturbance, mood disturbance, 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 Normal [facility] COMPREHENSIVE PANELon 2021 Albumin [Mass/Vol] 4.2 g/dL Normal 3.4 - 5.0 [facility] Comment on above: Performed By: #### C MP #### [address] [address] ALP [Catalytic activity/Vol] 53 U/L Normal 33 - 136 [facility] Comment on above: Performed By: #### C MP #### [address] [address] ALT [Catalytic activity/Vol] 12 U/L Normal 10 - 52 [facility] Comment on above: Result Comment: [place] ents treated with Sulfasalazine may generate falsely decreased results for ALT. Performed By: #### C MP #### [address] [address] Anion gap [Moles/Vol] 13 mmol/L Normal 10 - 20 [facility] Comment on above: Performed By: #### C MP #### [address] [address] AST [Catalytic activity/Vol] 14 U/L Normal 9 - 39 [facility] Comment on above: Performed By: #### C MP #### [address] [address] Bilirubin [Mass/Vol] 0.8 mg/dL Normal 0.0 - 1.2 [facility] Comment on above: Performed By: #### C MP #### [address] [address] Calcium [Mass/Vol] 9.5 mg/dL Normal 8.6 - 10.3 [facility] Comment on above: Performed By: #### C MP #### [address] [address] Chloride [Moles/Vol] 98 mmol/L Normal 98 - 107 [facility] Comment on above: Performed By: #### C MP #### [address] [address] Creatinine [Mass/Vol] 0.91 mg/dL Normal 0.50 - 1.30 [facility] Comment on above: Performed By: #### C MP #### [address] [address] GFR/1.73 sq M.predicted among non-blacks MDRD (S/P/Bld) [Vol rate/Area] 85 mL/min/{1.73_m2} Normal >90 [facility] Comment on above: Result Comment: CALC ULATIONS OF ESTIMATED GFR ARE PERFORMED USING THE 2020 CKD-EPI STUDY REFIT EQUATION WITHOUT THE RACE VARIABLE FOR THE IDMS-TRACEABLE CREATININE METHODS. https://jasn.asnjournals.org/content/early//ASN.299095 4402 Performed By: #### C MP #### [address] [address] Glucose [Mass/Vol] 135 mg/dL High 74 - 99 [facility] Comment on above: Performed By: #### C MP #### [address] [address] HCO3 (Bld) [Moles/Vol] 29 mmol/L Normal 21 - 32 [facility] Comment on above: Performed By: #### C MP #### [address] [address] Potassium [Moles/Vol] 4.5 mmol/L Normal 3.5 - 5.3 [facility] Comment on above: Performed By: #### C MP #### [address] [address] Protein [Mass/Vol] 6.8 g/dL Normal 6.4 - 8.2 [facility] Comment on above: Performed By: #### C MP #### [address] [address] Sodium [Moles/Vol] 135 mmol/L Low 136 - 145 [facility] Comment on above: Performed By: #### C MP #### [address] [address] Urea nitrogen [Mass/Vol] 23 mg/dL Normal 6 - 23 [facility] Comment on above: Performed By: #### C MP #### [address] [address] HEMOGLOBIN A1Con 01-10-2022 Glucose [Mass/Vol] 151 mg/dL Normal [facility] Comment on above: Performed By: #### H BA1E #### [address] [address] HbA1c (Bld) [Mass fraction] 6.9 % Abnormal [facility] Comment on above: Result Comment: Diag nosis of Diabetes-Adults Non-Diabetic: < or = 5.6% Increased risk for developing diabetes: 5.7-6.4% Diagnostic of diabetes: > or = 6.5% . Monitoring of Diabetes Age (y) Therapeutic Goal (%) Adults: >18 <7.0 Pediatrics: 13-18 <7.5 7-12 <8.0 0- 6 7.5-8.5 [place] [employer]. Diabetes Care 33(S1), Mar 2009. Performed By: #### H BA1E #### [address] [address] LIPID PANEL (CORONARY RISK 2 )on 01-10-2022 [...] 128(S5). Adult guidelines reference: NCEP ATPIII Guidelines, VIRGILOI 2001, 258:2486-97 . Venipuncture immediately after or during the administration of Metamizole may lead to falsely low results. Testing should be performed immediately prior to Metamizole dosing. Performed By: #### L IPID #### [address] [address] Cholesterol in HDL [Mass/Vol] 40.0 mg/dL Normal [facility] Comment on above: Result Comment: . AGE VERY LOW LOW NORMAL HIGH 0-19 Y < 35 < 40 40-45 ---- 20-24 Y ---- < 40 >45 ---- >24 Y ---- < 40 40-60 >60 . Performed By: #### L IPID #### [address] [address] Cholesterol in LDL [Mass/Vol] 41 mg/dL Normal [...] . Performed By: #### L IPID #### [address] [address] Cholesterol in VLDL [Mass/Vol] 24 mg/dL Normal 0 - 40 [facility] Comment on above: Performed By: #### L IPID #### [address] [address] Cholesterol.total/Cho lesterol in HDL [Mass ratio] 2.6 {ratio} Normal [facility] Comment on above: Result Comment: REF VALUES DESIRABLE < 3.4 HIGH RISK > 5.0 Performed By: #### L IPID #### [address] [address] Triglyceride [Mass/Vol] 121 mg/dL Normal 0 - [...] dosing. Performed By: #### L IPID #### [address] [address] PROSTATE SPECIFIC AGon 01-10 Prostate specific Ag [Mass/Vol] ng/mL Critically low 0.00 - 4.00 [facility] Comment on above: Result Comment: The FDA requires that the method used for PSA assay be reported to the physician. Values obtained with different assay methods must not be used interchangeably. This test was performed at [facility] using the Qraved PSA assay is a two-site immunoenzymatic sandwich assay. The assay is approved for measurement of prostate-specific antigen (PSA)in serum and may be used in conjunction with a digital rectal examination in men 50 years and older as an aid in detection of prostate cancer. 3-Qgghv-wqlrcqiyo inhibitors (e.g. Proscar, Finasteride, Avodart, Dutasteride and Yessica) for the treatment of BPH have been shown to lower PSA levels by an average of 50% after 6 months of treatment. Performed By: #### P SA #### [address] [address] TSH WITH REFLEX TO FREE T4 I F ABNORMALon 01-10-2022 TSH Qn 1.29 m[IU]/L Normal 0.44 - 3.98 [facility] Comment on above: Result Comment: TSH testing is performed using different testing methodology at [facility] than at other [facility]. Direct result comparisons should only be made within the same method. Performed By: #### T HYDS #### [address] [address] Absolute lymphocyte counton 12-06-2021 Lymphocytes Auto (Unsp spec) [#/Vol] 2.47 10*3/uL 0.83-4.51 [facility] Work Phone: Basophil percentageon 2021 Basophils/100 WBC (Bld) 0.5 % 0-1 [facility] Work Phone: Chloride [Moles/Vol] 101 mmol/L 98-107 [facility] Work Phone: Eosinophils/100 WBC (Bld) 2.4 % 0-5 [facility] Work Phone: Glucose [Mass/Vol] 128 mg/dL 74-106 [facility] Work Phone: Comment on above: Fasting Glucose resu lt greater than or equal to 126 mg/dL suggests DIABETES MELLITUS per A.D.A. criteria. Neutrophils (Bld) [#/Vol] 3.8 10*3/uL 2.0-7.7 [facility] Work Phone: Neutrophils/100 WBC (Bld) 51.5 % 47-70 [facility] Work Phone: Potassium [Moles/Vol] 3.8 mmol/L 3.5-5.1 [facility] Work Phone: Sodium [Moles/Vol] 138 mmol/L 136-145 [facility] Work Phone: WBC (Bld) [#/Vol] 7.4 10*3/uL 4.4-11.0 [facility] Work Phone: Blood erythrocytes count (nu mber/volume)on 12-06-2021 RBC (Bld) [#/Vol] 5.30 10*6/uL 4.6-6.2 [facility] Work Phone: Blood hemoglobin measurement (mass/volume)on 12-06-2021 Hemoglobin (Bld) [Mass/Vol] 15.9 g/dL 13.0-16.5 [facility] Work Phone: Blood lymphocytes/100 leukoc yteson 12-06-2021 Lymphocytes/100 WBC (Bld) 33.3 % 19-41 [facility] Work Phone: Blood monocytes/100 leukocyt eson 12-06-2021 Monocytes/100 WBC (Bld) 12.0 % 0-10 [facility] Work Phone: [phone] Blood platelet mean volumeon 12-06-2021 Platelet mean volume (Bld) [Entitic vol] 9.6 fL 6.2-12.0 [facility] Work Phone: [phone] Determination of erythrocyte mean corpuscular volume (MCV)on 12-06-2021 MCV (RBC) [Entitic vol] 89.2 fL 80-94 [facility] Work Phone: [phone] Hematocrit Auto (Bld) [Volum e fraction]on 12-06-2021 Hematocrit (Bld) [Volume fraction] 47.3 % 40-54 [facility] Work Phone: Laboratory - Chemistry and C hemistry - challengeon 12-06-2021 CO2 [Moles/Vol] 30.0 mmol/L 21.0-32.0 [facility] Work Phone: [phone] Magnesium [Mass/Vol] 1.4 mg/dL 1.6-2.6 [facility] Work Phone: [phone] Urea nitrogen/Creatinine [Mass ratio] 21.6 mg/mg 10-20 [facility] Work Phone: [phone] Laboratory - Hematology and Cell countson 12-06-2021 Erythrocyte distribution width (RBC) [Entitic vol] 42.6 fL 35.1-43.9 [facility] Work Phone: [phone] Erythrocyte distribution width (RBC) [Ratio] 13.1 % 11.6-14.6 [facility] Work Phone: [phone] Immature granulocytes/100 WBC (Bld) 0.300 % 0.0-0.9 [facility] Work Phone: Comment on above: IG% - Immature Granu locytes (promyelocytes, myelocytes and metamyelocytes) > 1% indicates that a LEFT SHIFT is Present. MCH (RBC) [Entitic mass] 30.0 pg 27.0-32.0 [facility] Work Phone: Nucleated RBC/100 WBC (Bld) [Ratio] 0 % 0-5 [facility] Work Phone: [phone] MCHC Auto (RBC) [Mass/Vol]on 12-06-2021 MCHC (RBC) [Mass/Vol] 33.6 g/dL 32-36 [facility] Work Phone: No Panel Informationon 12-06 Estimated Creatinine Clearance Calc 55.72 ml/min [facility] Work Phone: [phone] GFR (MDRD) Amer 82 mL/min >60 [facility] Work Phone: [phone] Comment on above: GFR Calc Estimated GFR (MDRD) Non-Af Amer 68 mL/min >60 [facility] Work Phone: [phone] Comment on above: Non- GFR Calc Troponin I High Sensitivity 6 pg/mL 3.0-78.0 [facility] Work Phone: Comment on above: Please Note: New [place] t Units and Gender Specific Reference Ranges. For more information see Policy Stat Procedure [place] High Sensitivity Troponin (TNIH) and attachments. Platelets bldon 12-06-2021 Platelets (Bld) [#/Vol] 198 10*3/uL 150-450 [facility] Work Phone: [phone] Serum or plasma calcium lisa urement (mass/volume)on 12-06-2021 Calcium [Mass/Vol] 9.3 mg/dL 8.5-10.1 [facility] Work Phone: [phone] Serum or plasma creatinine m easurement (mass/volume)on 12-06-2021 Creatinine [Mass/Vol] 1.11 mg/dL 0.70-1.30 [facility] Work Phone: Comment on above: The validity of the calculated GFR & GFRAA in patients over 70 years has not been determined. Clinical correlation is essential. 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 Normal [employer] BASIC METABOLIC PANELon 04-3 0-2021 Anion gap [Moles/Vol] 13 mmol/L Normal 10 - 20 [facility] Comment on above: Performed By: #### B MP #### [address] [address] Calcium [Mass/Vol] 9.4 mg/dL Normal 8.6 - 10.3 [facility] Comment on above: Performed By: #### B MP #### [address] [place] [address] Chloride [Moles/Vol] 98 mmol/L Normal 98 - 107 [facility] Comment on above: Performed By: #### B MP #### [address] [address] Creatinine [Mass/Vol] 1.07 mg/dL Normal 0.50 - 1.30 [facility] Comment on above: Performed By: #### B MP #### [address] [address] GFR/1.73 sq M.predicted among non-blacks MDRD (S/P/Bld) [Vol rate/Area] 70 mL/min/{1.73_m2} Normal >90 [facility] Comment on above: Result Comment: CALC ULATIONS OF ESTIMATED GFR ARE PERFORMED USING THE 2020 CKD-EPI STUDY REFIT EQUATION WITHOUT THE RACE VARIABLE FOR THE IDMS-TRACEABLE CREATININE METHODS. https://jasn.asnjournals.org/content/early//ASN.958492 7886 Performed By: #### B MP #### [address] [address] Glucose [Mass/Vol] 143 mg/dL High 74 - 99 [facility] Comment on above: Performed By: #### B MP #### [address] [address] HCO3 (Bld) [Moles/Vol] 29 mmol/L Normal 21 - 32 [facility] Comment on above: Performed By: #### B MP #### [address] [address] Potassium [Moles/Vol] 4.7 mmol/L Normal 3.5 - 5.3 [facility] Comment on above: Performed By: #### B MP #### [address] [address] Sodium [Moles/Vol] 135 mmol/L Low 136 - 145 [facility] Comment on above: Performed By: #### B MP #### [address] [address] Urea nitrogen [Mass/Vol] 25 mg/dL High 6 - 23 [facility] Comment on above: Performed By: #### B MP #### [address] [address] HEMOGLOBIN A1Con 07-05-2021 Glucose [Mass/Vol] 157 mg/dL Normal [facility] Comment on above: Performed By: #### H BA1E #### [address] [address] HbA1c (Bld) [Mass fraction] 7.1 % Abnormal [facility] Comment on above: Result Comment: Diag nosis of Diabetes-Adults Non-Diabetic: < or = 5.6% Increased risk for developing diabetes: 5.7-6.4% Diagnostic of diabetes: > or = 6.5% . Monitoring of Diabetes Age (y) Therapeutic Goal (%) Adults: >18 <7.0 Pediatrics: 13-18 <7.5 7-12 <8.0 0- 6 7.5-8.5 [place] [employer]. Diabetes Care 33(S1), Mar 2009. Performed By: #### H BA1E #### [address] [address] Hemoglobin A1Con 07-05-2021 Glucose [Mass/Vol] 157 mg/dL [facility] Work Phone: HbA1c (Bld) [Mass fraction] 7.1 % Abnormal [facility] Work Phone: Comment on above: Diagnosis of Diabete s-Adults Non-Diabetic: < or = 5.6% Increased risk for developing diabetes: 5.7-6.4% Diagnostic of diabetes: > or = 6.5%. Monitoring of Diabetes Age (y) Therapeutic Goal (%) Adults: >18 <7.0 Pediatrics: 13-18 <7.5 7-12 <8.0 0- 6 7.5-8.5 [place] [employer]. Diabetes Care 33(S1), Mar 2009. Laboratory - Chemistry and C hemistry - challengeon 07-05-2021 Anion gap [Moles/Vol] 13 mmol/L 10 - 20 [facility] Work Phone: Calcium [Mass/Vol] 9.4 mg/dL 8.6 - 10.3 [facility] Work Phone: Chloride [Moles/Vol] 98 mmol/L 98 - 107 [facility] Work Phone: CO2 [Moles/Vol] 29 mmol/L 21 - 32 [facility] Work Phone: Creatinine [Mass/Vol] 1.07 mg/dL See Below [facility] Work Phone: Comment on above: Reference Range: 0.5 0 - 1.30 Glucose [Mass/Vol] 143 mg/dL above high threshold 74 - 99 [facility] Work Phone: Potassium [Moles/Vol] 4.7 mmol/L 3.5 - 5.3 [facility] Work Phone: Sodium [Moles/Vol] 135 mmol/L below low threshold 136 - 145 [facility] Work Phone: Urea nitrogen [Mass/Vol] 25 mg/dL above high threshold 6 - 23 [facility] Work Phone: No Panel Informationon 07-05 70 {mL/min/1.73m2} >90 [facility] Work Phone: Comment on above: CALCULATIONS OF JORGE MATED GFR ARE PERFORMED USING THE 2020 CKD-EPI STUDY REFIT EQUATION WITHOUT THE RACE VARIABLE FOR THE IDMS-TRACEABLE CREATININE METHODS.https://jasn.asnjournals.org/content/early// N.1970743799 VITAMIN B12on 07-05-2021 Cobalamin (Vitamin B12) [Mass/Vol] 278 pg/mL Normal 211 - 911 [facility] Comment on above: Performed By: #### V TB12 #### [facility] [address] [place] [address] Vitamin B12, Serumon 022 Cobalamin (Vitamin B12) [Mass/Vol] 278 pg/mL 211 - 911 [facility] Work Phone: Tobacco Screening.on 021 Fall risk assessment a) No falls within the last year [facility] Work Phone: Tobacco use status [facility] b) No [facility] Work Phone: Hemoglobin A1Con 12-28-2020 Glucose [Mass/Vol] 160 mg/dL [facility] Work Phone: HbA1c (Bld) [Mass fraction] 7.2 % Abnormal [facility] Work Phone: Comment on above: Diagnosis of Diabete s-Adults Non-Diabetic: < or = 5.6% Increased risk for developing diabetes: 5.7-6.4% Diagnostic of diabetes: > or = 6.5%. Monitoring of Diabetes Age (y) Therapeutic Goal (%) Adults: >18 <7.0 Pediatrics: 13-18 <7.5 7-12 <8.0 0- 6 7.5-8.5 [place] [employer]. Diabetes Care 33(S1), Mar 2009. Laboratory - Chemistry and C hemistry - challengeon 12-28-2020 Albumin BCP dye [Mass/Vol] 4.2 g/dL 3.4 - 5.0 [facility] Work Phone: ALP [Catalytic activity/Vol] 52 U/L 33 - 136 [facility] Work Phone: ALT With P-5'-P [Catalytic activity/Vol] 18 U/L 10 - 52 [facility] Work Phone: Comment on above: Patients treated wit h Sulfasalazine may generate falsely decreased results for ALT. Anion gap [Moles/Vol] 12 mmol/L 10 - 20 [facility] Work Phone: AST With P-5'-P [Catalytic activity/Vol] 17 U/L 9 - 39 [facility] Work Phone: Bilirubin [Mass/Vol] 0.6 mg/dL 0.0 - 1.2 [facility] Work Phone: Calcium [Mass/Vol] 9.7 mg/dL 8.6 - 10.3 [facility] Work Phone: Chloride [Moles/Vol] 100 mmol/L 98 - 107 [facility] Work Phone: CO2 [Moles/Vol] 29 mmol/L 21 - 32 [facility] Work Phone: Creatinine [Mass/Vol] 0.94 mg/dL See Below [facility] Work Phone: Comment on above: Reference Range: 0.5 0 - 1.30 Glucose [Mass/Vol] 155 mg/dL above high threshold 74 - 99 [facility] Work Phone: Potassium [Moles/Vol] 4.0 mmol/L 3.5 - 5.3 [facility] Work Phone: Protein [Mass/Vol] 6.9 g/dL 6.4 - 8.2 [facility] Work Phone: Sodium [Moles/Vol] 137 mmol/L 136 - 145 [facility] Work Phone: Urea nitrogen [Mass/Vol] 18 mg/dL 6 - 23 [facility] Work Phone: Laboratory - Hematology and Cell countson 12-28-2020 Erythrocyte distribution width (RBC) [Ratio] 14.4 % See Below [facility] Work Phone: Comment on above: Reference Range: 11. 5 - 14.5 Hematocrit (Bld) [Volume fraction] 45.8 % See Below [facility] Work Phone: Comment on above: Reference Range: 41. 0 - 52.0 Hemoglobin (Bld) [Mass/Vol] 15.2 g/dL See Below [facility] Work Phone: Comment on above: Reference Range: 13. 5 - 17.5 MCHC (RBC) [Mass/Vol] 33.3 g/dL See Below [facility] Work Phone: Comment on above: Reference Range: 32. 0 - 36.0 MCV (RBC) [Entitic vol] 89 fL 80 - 100 [facility] Work Phone: [phone] Platelets (Bld) [#/Vol] 192 10*3/uL 150 - 450 [facility] Work Phone: RBC (Bld) [#/Vol] 5.12 {x10E12/L} See Below [facility] Work Phone: [phone] Comment on above: Reference Range: 4.5 0 - 5.90 WBC (Bld) [#/Vol] 5.1 10*3/uL 4.4 - 11.3 [facility] Work Phone: Lipid Panelon 12-28-2020 Cholesterol [Mass/Vol] 106 mg/dL 0 - 199 [facility] Work Phone: Comment on above: . AGE [...] Cholesterol in HDL [Mass/Vol] 38.0 mg/dL Abnormal [facility] Work Phone: Comment on above: . AGE VERY LOW LOW N ORMAL HIGH 0-19 Y < 35 < 40 40-45 ---- 20- 24 Y ---- < 40 >45 ---- >24 Y ---- < 40 40-60 >60. Cholesterol in LDL [Mass/Vol] 51 mg/dL 0 - 99 [facility] Work Phone: Comment on above: . NEAR BORD AGE ALISHA RABLE OPTIMAL HIGH HIGH VERY HIGH 0-19 Y 0 - 109 --- 110-129 >/= 130 ---- 20-24 Y 0 - 119 --- 120-159 >/= 160 ---- >24 Y 0 - 99 100-129 130-159 160-189 >/=190. Cholesterol.total/Cho lesterol in HDL [Mass ratio] 2.8 {ratio} [facility] Work Phone: Comment on above: REF VALUESDESIRABLE < 3.4HIGH RISK > 5.0 Triglyceride [Mass/Vol] 85 mg/dL 0 - 149 [facility] Work Phone: Comment on above: . AGE [...] Lipid Panel 17 mg/dL 0 - 40 [facility] Work Phone: No Panel Informationon 12-28 >60 >60 [facility] Work Phone: Comment on above: CALCULATIONS OF JORGE MATED GFR ARE PERFORMED USING THE MDRD STUDY EQUATION FOR THE IDMS-TRACEABLE CREATININE METHODS. CLIN CHEM 2007;53:766-72 Prostate Specific Antigenon 12-28-2020 Prostate specific Ag [Mass/Vol] ng/mL See Below [facility] Work Phone: Comment on above: Reference Range: 0.0 0 - 4.00The FDA requires that the method used for PSA assay be reported to the physician. Values obtained with different assay methods must not be used interchangeably. This testwas performed at [facility] using the Access CBTecch PSA assay is a two-site immunoenzymatic sandwich assay. The assay is approved for measurement of prostate-specific antigen (PSA)in serum and may be used in conjunction with a digital rectal examination in men 50 years and older as an aid in detection of prostate cancer.3-Swfuo-evbfygdrg inhibitors (e.g. Proscar, Finasteride, Avodart, Dutasteride and Yessica) for the treatment of BPH have been shown to lower PSA levels by an average of 50% after 6 months of treatment. Vitamin B12, Serumon 021 Cobalamin (Vitamin B12) [Mass/Vol] 291 pg/mL 211 - 911 [facility] Work Phone: MRI Brain w/wo Contraston MR Brain WO and W contrast IV Interpreted by: NEYDA PANCHAL06/18/20 15:43MRN: [id number] Name: ALL YOUNG STUDY:MRI BRAIN W/WO CONTRAST; 06/18/2020 2:58 pm INDICATION:Memory loss NO TO MRI QUESTION. COMPARISON:None. ORDERING CLINICIAN:LEN DUQUE TECHNIQUE:Axial T2, FLAIR, DWI, gradient echo T2 and sagittal and coronal [id number] images of brain were acquired. Contrast was [...] signed by: NEYDA PANCHAL 06/18/20 15:43 Normal [facility] Work Phone: Comment on above: ORDER REVISED TO A N R MRI BRAIN W/WO CONTRAST BY RADIOLOGIST; Original Order Number: [id number] NR MRI BRAIN W/WO CONTRASTon 06-18-2020 NR MRI BRAIN W/WO CONTRAST Patient Name: YOUNGALL STUDY: MRI BRAIN W/WO CONTRAST; 06/18/2020 2:58 pm INDICATION: Memory loss NO TO MRI QUESTION. COMPARISON: None. ACCESSION NUMBER(S): [id number] ORDERING CLINICIAN: LEN DUQUE TECHNIQUE: Axial T2, [...] Electronically signed by: NEYDA PANCHAL MD Normal [facility] BASIC METABOLIC PANELon - Anion gap [Moles/Vol] 14 mmol/L Normal 10 - 20 [facility] Comment on above: Performed By: #### B MP #### [address] [address] Calcium [Mass/Vol] 9.3 mg/dL Normal 8.6 - 10.[address] [facility] Comment on above: Performed By: #### B MP #### [address] [address] Chloride [Moles/Vol] 98 mmol/L Normal 98 - 107 [facility] Comment on above: Performed By: #### B MP #### [address] [address] Creatinine [Mass/Vol] 0.99 mg/dL Normal 0.50 - 1.30 [facility] Comment on above: Performed By: #### B MP #### [address] [address] GFR- AM. >60 Normal >60 [facility] Comment on above: Result Comment: CALC ULATIONS OF ESTIMATED GFR ARE PERFORMED USING THE MDRD STUDY EQUATION FOR THE IDMS-TRACEABLE CREATININE METHODS. CLIN CHEM 2007;53:766-72 Performed By: #### B MP #### [address] [address] GFR-NON AM. >60 Normal >60 [facility] Comment on above: Performed By: #### B MP #### [address] [address] Glucose [Mass/Vol] 161 mg/dL High 74 - [address] [facility] Comment on above: Performed By: #### B MP #### [address] [address] HCO3 (Bld) [Moles/Vol] 25 mmol/L Normal 21 - 32 [facility] Comment on above: Performed By: #### B MP #### [address] [address] Potassium [Moles/Vol] 4.2 mmol/L Normal 3.5 - 5.3 [facility] Comment on above: Performed By: #### B MP #### [address] [address] Sodium [Moles/Vol] 133 mmol/L Low 136 - [address] [facility] Comment on above: Performed By: #### B MP #### [address] [address] Urea nitrogen [Mass/Vol] 21 mg/dL Normal 6 - 23 [facility] Comment on above: Performed By: #### B MP #### [address] [address] HEMOGLOBIN A1Con 05-29-2020 Glucose [Mass/Vol] 186 mg/dL Normal [facility] Comment on above: Performed By: #### H BA1E #### [address] [address] HbA1c (Bld) [Mass fraction] 8.1 % Normal [facility] Comment on above: Result Comment: Diag nosis of Diabetes-Adults Non-Diabetic: < or = 5.6% Increased risk for developing diabetes: 5.7-6.4% Diagnostic of diabetes: > or = 6.5% . Monitoring of Diabetes Age (y) Therapeutic Goal (%) Adults: >18 <7.0 Pediatrics: 13-18 <7.5 7-12 <8.0 0- 6 7.5-8.5 [place] [employer]. Diabetes Care 33(S1), Mar 2009. Performed By: #### H BA1E #### [id number] [place] [address] Hemoglobin A1Con 05-29-2020 HbA1c (Bld) [Mass fraction] 8.1 % [facility] Work Phone: Comment on above: Diagnosis of Diabete s-Adults Non-Diabetic: < or = 5.6% Increased risk for developing diabetes: 5.7-6.4% Diagnostic of diabetes: > or = 6.5%. Monitoring of Diabetes Age (y) Therapeutic Goal (%) Adults: >18 <7.0 Pediatrics: 13-18 <7.5 7-12 <8.0 0- 6 7.5-8.5 [place] [employer]. Diabetes Care 33(S1), Mar 2009. HbA1c (Bld) [Mass fraction] 186 {MG/DL} [facility] Work Phone: Metabolic Panelon 05-29-2020 Anion gap [Moles/Vol] 14 mmol/L 10 - 20 [facility] Work Phone: Calcium [Mass/Vol] 9.3 mg/dL 8.6 - 10.3 [facility] Work Phone: Chloride [Moles/Vol] 98 mmol/L 98 - 107 [facility] Work Phone: CO2 [Moles/Vol] 25 mmol/L 21 - 32 [facility] Work Phone: Creatinine [Mass/Vol] 0.99 mg/dL See Below [facility] Work Phone: Comment on above: Reference Range: 0.5 0 - 1.30 Glucose [Mass/Vol] 161 mg/dL above high threshold 74 - 99 [facility] Work Phone: Potassium [Moles/Vol] 4.2 mmol/L 3.5 - 5.3 [facility] Work Phone: Sodium [Moles/Vol] 133 mmol/L below low threshold 136 - 145 [facility] Work Phone: [phone] Urea nitrogen [Mass/Vol] 21 mg/dL 6 - 23 [facility] Work Phone: Otheron 05-29-2020 >60 >60 [facility] Work Phone: Comment on above: CALCULATIONS OF JORGE MATED GFR ARE PERFORMED USING THE MDRD STUDY EQUATION FOR THE IDMS-TRACEABLE CREATININE METHODS. CLIN CHEM 2007;53:766-72 2 1 [facility] Work Phone: Comment on above: What year [...] - referral no t necessary at present [facility] Work Phone: [phone] TSH WITH REFLEX TO FREE T4 I F ABNORMALon 05-29-2020 TSH Qn 1.41 m[IU]/L Normal 0.44 - 3.98 [facility] Comment on above: Result Comment: TSH testing is performed using different testing methodology at [facility] than at other [facility]. Direct result comparisons should only be made within the same method. Performed By: #### T HYDS #### [address] [address] Thyroidon 05-29-2020 TSH Qn 1.41 {mIU/L} See Below [facility] Work Phone: Comment on above: Reference Range: 0.4 4 - 3.98 TSH testing is performed using different testing methodology at [facility] than at other [facility]. Direct result comparisons should only be made within the same method. 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 Comment on above: Performed By: #### A LBSP #### [id number] COMPREHENSIVE PANELon 2019 Albumin [Mass/Vol] 4.3 g/dL Normal 3.4 - 5.[address] [facility] Comment on above: Performed By: #### C MP #### [address] [address] ALP [Catalytic activity/Vol] 57 U/L Normal 33 - 136 [facility] Comment on above: Performed By: #### C MP #### [id number] ALT [Catalytic activity/Vol] 18 U/L Normal 10 - 52 [facility] Comment on above: Result Comment: [place] ents treated with Sulfasalazine may generate falsely decreased results for ALT. Performed By: #### C MP #### [address] [address] Anion gap [Moles/Vol] 11 mmol/L Normal 10 - 20 [facility] Comment on above: Performed By: #### C MP #### [address] [address] AST [Catalytic activity/Vol] 15 U/L Normal 9 - 39 [facility] Comment on above: Performed By: #### C MP #### [address] [address] Bilirubin [Mass/Vol] 0.4 mg/dL Normal 0.0 - 1.2 [facility] Comment on above: Performed By: #### C MP #### [address] [address] Calcium [Mass/Vol] 9.3 mg/dL Normal 8.6 - 10.[address] [facility] Comment on above: Performed By: #### C MP #### [address] [address] Chloride [Moles/Vol] 97 mmol/L Low 98 - 107 [facility] Comment on above: Performed By: #### C MP #### [address] [address] Creatinine [Mass/Vol] 0.95 mg/dL Normal 0.50 - 1.30 [facility] Comment on above: Performed By: #### C MP #### [address] [address] GFR- AM. >60 Normal >60 [facility] Comment on above: Result Comment: CALC ULATIONS OF ESTIMATED GFR ARE PERFORMED USING THE MDRD STUDY EQUATION FOR THE IDMS-TRACEABLE CREATININE METHODS. CLIN CHEM 2007;53:766-72 Performed By: #### C MP #### [address] [address] GFR-NON AM. >60 Normal >60 [facility] Comment on above: Performed By: #### C MP #### [address] [address] Glucose [Mass/Vol] 150 mg/dL High 74 - [address] [facility] Comment on above: Performed By: #### C MP #### [address] [address] HCO3 (Bld) [Moles/Vol] 30 mmol/L Normal 21 - 32 [facility] Comment on above: Performed By: #### C MP #### [address] [address] Potassium [Moles/Vol] 4.3 mmol/L Normal 3.5 - 5.3 [facility] Comment on above: Performed By: #### C MP #### [address] [address] Protein [Mass/Vol] 6.9 g/dL Normal 6.4 - 8.[address] [facility] Comment on above: Performed By: #### C MP #### [address] [address] Sodium [Moles/Vol] 134 mmol/L Low 136 - [address] [facility] Comment on above: Performed By: #### C MP #### [address] [address] Urea nitrogen [Mass/Vol] 22 mg/dL Normal 6 - 23 [facility] Comment on above: Performed By: #### C MP #### [address] [address] HEMOGLOBIN A1Con 01-06-2020 Glucose [Mass/Vol] 183 mg/dL Normal [facility] Comment on above: Performed By: #### H BA1E #### [address] [address] HbA1c (Bld) [Mass fraction] 8.0 % Normal [facility] Comment on above: Result Comment: Diag nosis of Diabetes-Adults Non-Diabetic: < or = 5.6% Increased risk for developing diabetes: 5.7-6.4% Diagnostic of diabetes: > or = 6.5% . Monitoring of Diabetes Age (y) Therapeutic Goal (%) Adults: >18 <7.0 Pediatrics: 13-18 <7.5 7-12 <8.0 0- 6 7.5-8.5 [place] [employer]. Diabetes Care 33(S1), Mar 2009. Performed By: #### H BA1E #### [address] [address] LIPID PANEL (CORONARY RISK 2 )on 01-06-2020 Cholesterol [Mass/Vol] 96 mg/dL Normal 0 - 199 [facility] Comment on above: Result Comment: [...] dosing. Performed By: #### L IPID #### [address] [address] Cholesterol in HDL [Mass/Vol] 34.0 mg/dL Abnormal [facility] Comment on above: Result Comment: . AGE VERY LOW LOW NORMAL HIGH 0-19 Y < 35 < 40 40-45 ---- 20-24 Y ---- < 40 >45 ---- >24 Y ---- < 40 40-60 >60 . Performed By: #### L IPID #### [address] [address] Cholesterol in LDL [Mass/Vol] 30 mg/dL Normal 0 - 99 [facility] Comment on above: Result Comment: . NEAR BORD AGE DESIRABLE OPTIMAL HIGH HIGH VERY HIGH 0-19 Y 0 - 109 --- 110-129 >/= 130 ---- 20-24 Y 0 - 119 --- 120-159 >/= 160 ---- >24 Y 0 - 99 100-129 130-159 160-189 >/=190 . Performed By: #### L IPID #### [address] [address] Cholesterol in VLDL [Mass/Vol] 32 mg/dL Normal 0 - 40 [facility] Comment on above: Performed By: #### L IPID #### [address] [address] Cholesterol.total/Cho lesterol in HDL [Mass ratio] 2.8 {ratio} Normal [facility] Comment on above: Result Comment: REF VALUES DESIRABLE < 3.4 HIGH RISK > 5.0 Performed By: #### L IPID #### [address] [address] Triglyceride [Mass/Vol] 162 mg/dL High 0 - 149 [facility] Comment on above: Result Comment: [...] dosing. Performed By: #### L IPID #### [address] [address] PROSTATE SPECIFIC AGon 01-05 Prostate specific Ag [Mass/Vol] ng/mL Normal 0.00 - 4.00 [facility] Comment on above: Result Comment: The FDA requires that the method used for PSA assay be reported to the physician. Values obtained with different assay methods must not be used interchangeably. This test was performed at [facility] using the Qraved PSA assay is a two-site immunoenzymatic sandwich assay. The assay is approved for measurement of prostate-specific antigen (PSA)in serum and may be used in conjunction with a digital rectal examination in men 50 years and older as an aid in detection of prostate cancer. 4-Pvxze-seosxhsml inhibitors (e.g. Proscar, Finasteride, Avodart, Dutasteride and Yessica) for the treatment of BPH have been shown to lower PSA levels by an average of 50% after 6 months of treatment. Performed By: #### P SA #### [address] [address] VITAMIN B12on 01-06-2020 Cobalamin (Vitamin B12) [Mass/Vol] 323 pg/mL Normal 211 - 911 [facility] Comment on above: Performed By: #### V TB12 #### [address] [address] BMPon 07-02-2018 Anion gap molar conc 11 mmol/L Normal 10- [facility] Comment on above: Performed By: #### 2 [id number] #### [facility] [address] [place] [address] Calcium mass conc 9.6 mg/dL Normal 8.6-10.3 [facility] Comment on above: Performed By: #### 2 [id number] #### [facility] [address] [place] [address] Chloride molar conc 100 mmol/L Normal 98-107 [facility] Comment on above: Performed By: #### 2 [id number] #### [facility] [address] [place] [address] CO2 molar conc 29.0 mmol/L Normal 21.0-32.0 [facility] Comment on above: Performed By: #### 2 [id number] #### [facility] [address] [place] [address] Creatinine mass conc 1.0 mg/dL Normal 0.5-1.3 [facility] Comment on above: Performed By: #### 2 [id number] #### [facility] [address] [place] [address] Glucose mass conc 186 mg/dL High 70-99 [facility] Comment on above: Performed By: #### 2 [id number] #### [facility] [address] [place] [address] Potassium molar conc 4.6 mmol/L Normal 3.5-5.3 [facility] Comment on above: Performed By: #### 2 [id number] #### [facility] [address] [place] [address] Sodium molar conc 135 mmol/L Low 136-145 [facility] Comment on above: Performed By: #### 2 [id number] #### [facility] [address] [place] [address] Urea nitrogen mass conc 20 mg/dL Normal 6-23 [facility] Comment on above: Performed By: #### 2 [id number] #### [facility] [address] [place] [address] Urea nitrogen/Creatinine mass ratio 20.0 ratio Normal 5.4-30.0 [facility] Comment on above: Performed By: #### 2 [id number] #### [facility] [address] [place] [address] [id number] 07-02-2018 Hemoglobin A1c/Hemoglobin.total mass fraction (Bld) 8.3 % High 4.0-6.3 [facility] Comment on above: Performed By: #### 3 [id number] #### [facility] Chemistry Manual Subsection [address] [place] [address] Microalb/Creat Ratioon 07-02 Creatinine mass conc 158.0 mg/dL Normal 20.0-300.0 [facility] Comment on above: Performed By: #### 1 [id number] #### [facility] [address] [place] [address] Creatinine mass conc 11 ug/mg Normal 0-30 [facility] Comment on above: Performed By: #### 1 [id number] #### [facility] [address] [place] [address] Ur Microalbumin 1.7 mg/dL Normal 0.0-1.9 [facility] Comment on above: Performed By: #### 1 [id number] #### [facility] [address] [place] [address] eGFRon 07-02-2018 GFR/1.73 sq M predicted among non-blacks MDRD vol rate/area (S/P/Bld) mL/min/{1.73_m2} Normal [facility] Comment on above: Order Comment: Order added by Discern Expert. Performed By: #### 1 [id number] #### [facility] [address] [place] [address] BMPon 01-08-2018 Anion gap molar conc 12 mmol/L Normal 10-20 [facility] Comment on above: Performed By: #### 2 [id number] #### [facility] [address] [place] [address] Calcium mass conc 9.7 mg/dL Normal 8.6-10.3 [facility] Comment on above: Performed By: #### 2 [id number] #### [facility] [address] [place] [address] Chloride molar conc 96 mmol/L Low 98-107 [facility] Comment on above: Performed By: #### 2 [id number] #### [facility] [address] [place] [address] CO2 molar conc 29.0 mmol/L Normal 21.0-32.0 [facility] Comment on above: Performed By: #### 2 [id number] #### [facility] [address] [place] [address] Creatinine mass conc 1.0 mg/dL Normal 0.6-1.3 [facility] Comment on above: Performed By: #### 2 [id number] #### [facility] [address] [place] [address] Glucose mass conc 160 mg/dL High 70-99 [facility] Comment on above: Performed By: #### 2 [id number] #### [facility] [address] [place] [address] Potassium molar conc 4.4 mmol/L Normal 3.5-5.3 [facility] Comment on above: Performed By: #### 2 [id number] #### [facility] [address] [place] [address] Sodium molar conc 133 mmol/L Low 136-145 [facility] Comment on above: Performed By: #### 2 [id number] #### [facility] [address] [place] [address] Urea nitrogen mass conc 24 mg/dL High 6-23 [facility] Comment on above: Performed By: #### 2 [id number] #### [facility] [address] [place] [address] Urea nitrogen/Creatinine mass ratio 24.0 ratio Normal 5.4-30.0 [facility] Comment on above: Performed By: #### 2 [id number] #### [facility] [address] [place] [address] [id number] 01-08-2018 Hemoglobin A1c/Hemoglobin.total mass fraction (Bld) 8.3 % High 4.0-6.3 [facility] Comment on above: Performed By: #### 3 [id number] #### [facility] Chemistry Manual Subsection [address] [place] [address] Lipid Profileon 01-08-2018 Cholesterol in HDL mass conc 37 mg/dL Normal [facility] Comment on above: Performed By: #### 3 [id number] #### [facility] [address] [place] [address] Cholesterol in LDL mass conc 44 mg/dL Normal 0-130 [facility] Comment on above: Performed By: #### 3 [id number] #### [facility] [address] [place] [address] Cholesterol in VLDL mass conc 24 mg/dL Normal [facility] Comment on above: Performed By: #### 3 [id number] #### [facility] [address] [place] [address] Cholesterol mass conc 105 mg/dL Low 120-200 [facility] Comment on above: Performed By: #### 3 [id number] #### [facility] [address] [place] [address] Triglyceride mass conc 122 mg/dL Normal 0-150 [facility] Comment on above: Result Comment: [...] 200 - 499 Performed By: #### 3 [id number] #### [facility] [address] [place] [address] PSA Totalon 01-08-2018 PSA Total <0.10 Normal [facility] Comment on above: Performed By: #### 1 [id number] #### [facility] [address] [place] [address] eGFRon 01-08-2018 GFR/1.73 sq M predicted among non-blacks MDRD vol rate/area (S/P/Bld) mL/min/{1.73_m2} Normal [facility] Comment on above: Order Comment: Order added by Discern Expert. Performed By: #### 1 [id number] #### [facility] [address] [place] [address] ECG 12 Leadon 09-13-2017 Atrial Rate Invalid Interpretation Code [facility] P Daisy Invalid Interpretation Code [facility] P-R Interval Invalid Interpretation Code [facility] Q-T Interval Invalid Interpretation Code [facility] Q-T Interval (corrected) Invalid Interpretation Code [facility] QRS Duration Invalid Interpretation Code [facility] QTC Calculation (Bezet) Invalid Interpretation Code [facility] R Daisy Invalid Interpretation Code [facility] T Daisy Invalid Interpretation Code [facility] Ventricular Rate Invalid Interpretation Code [facility] Vital Signs Date Time Vital Sign Value Performing Clinician Facility 09-21-2024 06:51-0400 Body height 177.[address] Len Duque MD Work Phone: [facility] 01-20-2024 14:57-0500 Body mass index (BMI) [Ratio] 22.63 kg/m2 Len Duque MD Work Phone: [facility] 01-20-2024 14:57-0500 Body weight 68.49 kg Len Duque MD Work Phone: [facility] 01-20-2024 14:57-0500 Diastolic blood pressure 77 mm[Hg] Len Duque MD Work Phone: [facility] 01-20-2024 14:57-0500 Heart rate 77 /min Len Duque MD Work Phone: [facility] 01-20-2024 14:57-0500 SaO2% (BldA) [Mass fraction] 96 % Len Duque MD Work Phone: [facility] 01-20-2024 14:57-0500 Systolic blood pressure 118 mm[Hg] Len Duque MD Work Phone: [facility] 07-20-2023 14:48-0400 Body height 174 cm Len Duque MD Work Phone: [facility] 07-20-2023 14:48-0400 Body mass index (BMI) [Ratio] 23.08 kg/m2 Len Duque MD Work Phone: [facility] 07-20-2023 14:48-0400 Body weight 69.85 kg Len Duque MD Work Phone: [facility] 07-20-2023 14:48-0400 Diastolic blood pressure 72 mm[Hg] Len Duque MD Work Phone: [facility] 07-20-2023 14:48-0400 Heart rate 72 /min Len Duque MD Work Phone: [facility] 07-20-2023 14:48-0400 SaO2% (BldA) [Mass fraction] 96 % Len Duque MD Work Phone: [facility] 07-20-2023 14:48-0400 Systolic blood pressure 122 mm[Hg] Len Duque MD Work Phone: [facility] 02-23-2023 14:27-0500 Body mass index (BMI) [Ratio] 23.48 kg/m2 Len Duque MD Work Phone: [facility] 02-23-2023 14:27-0500 Body weight 72.12 kg Lne Duque MD Work Phone: [facility] 02-23-2023 14:27-0500 Diastolic blood pressure 72 mm[Hg] Len Duque MD Work Phone: [facility] 02-23-2023 14:27-0500 Heart rate 69 /min Len Duque MD Work Phone: [facility] 02-23-2023 14:27-0500 SaO2% (BldA) [Mass fraction] 96 % Len Duque MD Work Phone: [facility] 02-23-2023 14:27-0500 Systolic blood pressure 116 mm[Hg] Len Duque MD Work Phone: [facility] 01-11-2023 15:30-0500 Body mass index (BMI) [Ratio] 24.07 kg/m2 Len Duque MD Work Phone: [facility] 01-11-2023 15:30-0500 Body weight 73.94 kg Len Duque MD Work Phone: [facility] 01-11-2023 15:30-0500 Diastolic blood pressure 70 mm[Hg] Len Duque MD Work Phone: [facility] 01-11-2023 15:30-0500 Heart rate 73 /min Len Duque MD Work Phone: [facility] 01-11-2023 15:30-0500 SaO2% (BldA) [Mass fraction] 97 % Len Duque MD Work Phone: [facility] 01-11-2023 15:30-0500 Systolic blood pressure 122 mm[Hg] Len Duque MD Work Phone: [facility] 07-07-2022 15:19-0400 Body height 175.3 cm Len Duque MD Work Phone: [facility] 07-07-2022 15:19-0400 Body mass index (BMI) [Ratio] 25.84 kg/m2 Len Duque MD Work Phone: [facility] 07-07-2022 15:19-0400 Body weight 79.38 kg Len Duque MD Work Phone: [facility] 07-07-2022 15:19-0400 Diastolic blood pressure 78 mm[Hg] Len Duque MD Work Phone: [facility] 07-07-2022 15:19-0400 Heart rate 79 /min Len Duque MD Work Phone: [facility] 07-07-2022 15:19-0400 SaO2% (BldA) [Mass fraction] 96 % Len Duque MD Work Phone: [facility] 07-07-2022 15:19-0400 Systolic blood pressure 110 mm[Hg] Len Duque MD Work Phone: [facility] 02-17-2022 13:53-0500 Body height 175.26 cm Len Duque Work Phone: [facility] Work Phone: 02-17-2022 13:53-0500 Body mass index (BMI) [Ratio] 24.96 kg/m2 Len Duque Work Phone: [facility] Work Phone: 02-17-2022 13:53-0500 Body surface area Derived from formula 1.92 m2 Len Moralezer Work Phone: [facility] Work Phone: 02-17-2022 13:53-0500 Body weight 76.66 kg Len Moralezer Work Phone: [facility] Work Phone: 02-17-2022 13:53-0500 Diastolic blood pressure 76 mm[Hg] Len Moralezer Work Phone: [facility] Work Phone: 02-17-2022 13:53-0500 Heart rate 68 /min Len Moralezer Work Phone: [facility] Work Phone: 02-17-2022 13:53-0500 Systolic blood pressure 128 mm[Hg] Len Moralezer Work Phone: [facility] Work Phone: 12-06-2021 06:09-0400 Body temperature 98 [degF] [facility] Work Phone: 12-06-2021 06:09-0400 Diastolic blood pressure 82 mm[Hg] [facility] Work Phone: 12-06-2021 06:09-0400 Heart rate 61 /min [facility] Work Phone: 12-06-2021 06:09-0400 Respiratory rate 17 /min [facility] Work Phone: 12-06-2021 06:09-0400 SaO2% (BldA) [Mass fraction] 96 % [facility] Work Phone: 12-06-2021 06:09-0400 Systolic blood pressure 141 mm[Hg] [facility] Work Phone: 12-06-2021 04:09-0400 Body height 177.8 cm [facility] Work Phone: 12-06-2021 04:09-0400 Body mass index (BMI) [Ratio] 24.2 kg/m2 [facility] Work Phone: 12-06-2021 04:09-0400 Body weight 76.5 kg [facility] Work Phone: 01-09-2021 13:50-0400 Body height 175.9 cm Len Faith RodgersDuque Work Phone: [facility] Work Phone: 01-09-2021 13:50-0400 Body mass index (BMI) [Ratio] 25.51 kg/m2 Len Faith RodgersDuque Work Phone: [facility] Work Phone: 01-09-2021 13:50-0400 Body surface area Derived from formula 1.95 m2 Len O Duque Work Phone: [facility] Work Phone: 01-09-2021 13:50-0400 Body weight 78.93 kg Len O Duque Work Phone: [facility] Work Phone: 01-09-2021 13:50-0400 Diastolic blood pressure 64 mm[Hg] Len O Duque Work Phone: [facility] Work Phone: 01-09-2021 13:50-0400 Heart rate 72 /min Len O Duque Work Phone: [facility] Work Phone: 01-09-2021 13:50-0400 Systolic blood pressure 110 mm[Hg] Len O Duque Work Phone: [facility] Work Phone: 07-08-2020 11:37-0400 Body height 175.9 cm Len Duque MD [facility] Work Phone: 07-08-2020 11:37-0400 Body mass index (BMI) [Ratio] 27.12 kg/m2 Len Duque MD [facility] Work Phone: 07-08-2020 11:37-0400 Body surface area Derived from formula 2 m2 Len Duque MD [facility] Work Phone: 07-08-2020 11:37-0400 Body weight 83.92 kg Len Duque MD [facility] Work Phone: 07-08-2020 11:37-0400 Diastolic blood pressure 80 mm[Hg] Len Duque MD [facility] Work Phone: Comment on above: [place] [facility]-08-2020 11:37-0400 Heart rate 72 /min Len Duque MD [facility] Work Phone: 07-08-2020 11:37-0400 Systolic blood pressure 124 mm[Hg] Len Duque MD [facility] Work Phone: Comment on above: [place] [facility] [place] 05-29-2020 11:09-0400 BMI (Body Mass Index) 27.85 kg/m2 Len Duque [facility] Work Phone: 05-29-2020 11:09-0400 Body weight 86.18 kg Len Duque [facility] Work Phone: 05-29-2020 11:09-0400 BP Diastolic 74 mm[Hg] Len Duque [facility] Work Phone: Comment on above: Location: E; 05-29-2020 11:09-0400 BP Systolic 126 mm[Hg] Len Duque [facility] Work Phone: Comment on above: Location: [facility]; 05-29-2020 11:09-0400 BSA (Body Surface Area) 2.03 m2 Len Wu [facility] Work Phone: 05-29-2020 11:090400 Height 175.9 cm [facility] Work Phone: 05-29-2020 11:09-0400 Pulse (Heart Rate) 68 /min Len Duque [facility] Work Phone: 09-13-2017 13:01-0400 BMI (Body Mass Index) 28.71 kg/m2 Ryan Dillard [facility] 09-13-2017 13:0400 Height 177.8 cm Ryan Dillard [facility] 09-13-2017 13:0400 Weight 90.77 kg Ryan Dillard [facility] Encounters Encounter Date Encounter Type Care Provider Facility Start: 01-11-2025 ambulatory Chau MURRELL Fa cility:[facility] Start: 01-09-2025 ambulatory Chau MURRELL Fa cility:[facility] Start: 11-30-2024 End: 11-30-2024 ambulatory Kirti Ortiz [facility] Facility:[facility] Start: 11-16-2024 End: 11-16-2024 ambulatory Kirti Ortiz [facility] Facility:[facility] Start: 11-07-2024 End: 11-07-2024 ambulatory Len Duque Facility:[facility] Start: 11-07-2024 Registered Referred Chau MONTGOMERY Christopher Start: 11-07-2024 End: 11-07-2024 ambulatory Chau MURRELL Facility:[facility] Start: 10-27-2024 End: 10-27-[address] Len Duque MD Work Phone: -[facility] Start: 10-27-2024 End: 10-27-2024 Patient encounter procedure Kirti Ortiz [facility] Work Phone: Start: 10-27-2024 Registered Referred Chau MONTGOMERY Christopher Start: 10-27-2024 End: 10-27-2024 ambulatory Chau MURRELL Facility:[facility] Start: 10-06-2024 End: 10-06-[address] Len Duque MD Work Phone: [facility] Start: 10-06-2024 End: 10-06-2024 Patient encounter procedure Catrina Prasad [facility]- -[facility] Work Phone: Start: 10-02-2024 ambulatory Chau MURRELL Fa cility:[facility] Start: 10-02-2024 Registered Referred Chau Smallwood MD -[facility] Start: 09-05-2024 End: 09-05-[address] Len Duque MD Work Phone: [facility] Start: 09-05-2024 End: 09-05-[address] Chau Smallwood MD -[facility] Work Phone: Start: 08-22-2024 End: 08-22-[address] Len Duque MD Work Phone: [facility] Start: 08-22-2024 End: 08-22-2024 [facility] Start: 08-22-2024 [facility] Start: 08-22-2024 End: 08-22-2024 ambulatory Chau MURRELL Facility:[facility] Start: 08-08-2024 End: 08-08-[address] Len Duque MD Work Phone: [facility] Start: 08-08-2024 End: 08-08-[address] Chau Smallwood MD -[facility] Work Phone: Start: 08-07-2024 End: 08-07-[address] 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); Hypercholesterolemia; Primary hypertension; Type 2 diabetes mellitus without complication, without long-term current use of insulin (Multi); Abnormal weight loss; Benign prostatic hyperplasia with urinary obstruction; Bilateral renal cysts; Cervical spondylolysis; 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; 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 (Multi); Hiatal hernia; Chronic bilateral low back pain without sciatica; Malignant neoplasm of skin; Prostate cancer (Multi); Pseudophakia, both eyes; 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); Hypercholesterolemia; Malignant neoplasm of skin; 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, psychotic disturbance, mood disturbance, or anxiety (Multi); Prostate cancer (Multi); Pseudophakia, both eyes; Skin ulcer, limited to breakdown of skin (Multi); Urge incontinence of urine Start: 07-03-2023 End: 07-03-2023 ambulatory LEN DUQUE [facility] Start: 02-23-2023 End: 02-23-2023 Office outpatient visit 15 minutes Len Duque MD Work Phone: [facility] Comment on above: Diabetic mononeuropa thy associated with type 2 diabetes mellitus (CMS/HCC) (Primary Dx); Abnormal weight loss; 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, psychotic disturbance, mood disturbance, or anxiety (CMS/HCC) Start: 01-11-2023 End: 01-11-2023 Assay of hemosiderin, quant Len Duque MD Work Phone: [facility] Work Phone: Start: 01-11-2023 End: 01-11-2023 Office outpatient visit 25 minutes Len Duque MD Work Phone: [facility] Comment on above: Routine general medi jean examination at health care facility (Primary Dx); 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, psychotic disturbance, mood disturbance, or anxiety (CMS/HCC); Hypercholesterolemia; 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 (CMS/HCC); Primary [...] 25 minutes Len Duque MD Work Phone: [facility] Comment on above: 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 (Primary Dx); Prostate cancer (CMS/HCC); Bilateral renal cysts; Cervical spondylolysis; 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 (CMS/HCC); 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 (CMS/HCC); Hiatal hernia; Hypercholesterolemia; Primary hypertension; Chronic bilateral low back pain without sciatica; 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, psychotic disturbance, mood disturbance, or anxiety (CMS/HCC); Malignant neoplasm of skin; Pseudophakia, both eyes; Urge incontinence of urine Start: 03-13-2022 AUDIT Len Duque Work Phone: [facility] Work Phone: Start: 02-17-2022 Office outpatient vi sit 15 minutes Len Cuevas Roland Work Phone: [facility] Work Phone: Start: 02-17-2022 ambulatory Len Duque Facil [id number] Start: 01-13-2022 ambulatory Len Duque Facil [id number] Start: 12-06-2021 End: 12-06-2021 Emergency department patient visit [facility] Start: 10-02-2021 AUDIT Len Faith Duuqe Work Phone: [facility] Work Phone: Start: 07-11-2021 ambulatory Len Duque Facil [id number] Start: 07-07-2021 Chart Update Len Moralezer Work Phone: [facility] Work Phone: Start: 01-09-2021 Office outpatient vi sit 25 minutes Lenjosé Moralezer Work Phone: [facility] Work Phone: Start: 10-07-2020 AUDIT Len Faith RodgersDuque Work Phone: [facility] Work Phone: Start: 07-08-2020 Patient encounter procedure Len Duque MD [facility] Work Phone: Start: 05-29-2020 Patient encounter procedure Len Duque [facility] Work Phone: Start: 01-11-2020 Patient encounter procedure Len Duque [facility] Work Phone: Start: 07-11-2019 Patient encounter procedure Len Duque [facility] Work Phone: Start: 01-11-2019 Patient encounter procedure Len Duque -[facility] Work Phone: Start: 07-08-2018 End: 07-09-2018 Patient encounter procedure Len Duque Facility:[facility] Start: 07-02-2018 End: 07-03-2018 Patient encounter procedure Len Duque Facility:[facility] Start: 01-08-2018 End: 01-09-2018 Patient encounter procedure Len Duque Facility:[facility] Start: 01-07-2018 End: 01-08-2018 Patient encounter procedure Len Duque Facility:[facility] Start: 09-13-2017 End: 09-13-2017 Office outpatient visit 15 minutes Ryan Dillard Work Phone: [facility] Office Procedures Date Procedure Procedure Detail [...] occult blood screening [Presence] in Stool Len Moralezer Start: 01-24-2010 Colonoscopy Len Duque Work Phone: Angioplasty of renal artery Len Duque End: 05-06-2020 Cataract surgery Len Duque Cholecystectomy Lenjosé Duque End: 01-24-2010 Colonoscopy Len Duque Esophagogastroduodenoscopy R oger Roland Hernia repair Len Duque Placement of stent i n coronary artery Len Duque Repair of shoulder Len Bateman triny Vasectomy Len Duque Plan of Treatment Date Care Activity Detail Author Start: 07-10-2027 DTaP/Tdap/Td Vaccine s (2 - Td or Tdap) DTaP/Tdap/Td Vaccines (2 - Td or Tdap) [facility] Start: 01-19-2025 Lipid panel Lipid Panel [facility] Start: 07-19-2024 End: 01-19-2025 Comprehensive metabolic 2000 panel - Serum or Plasma Comprehensive metabolic panel Lab Routine 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) Expected: 07/19/2024 (Approximate), Expires: 01/19/2025 [facility] Service Area Work Phone: Comment on above: Expected: 07/19/2024 (Approximate), Expires: 01/19/2025 Start: 07-19-2024 End: 01-19-2025 Hemoglobin A1c/Hemoglobin.total in Blood Hemoglobin A1c Lab Routine 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) Expected: 07/19/2024 (Approximate), Expires: 01/19/2025 [facility] Work Phone: Comment on above: Expected: 07/19/2024 (Approximate), Expires: 01/19/2025 Start: 02-26-2024 COVID-19 Vaccine () COVID-19 Vaccine () [facility] Start: 01-20-2024 End: 01-20-2024 Patient encounter procedure 01/20/2024 3:00 PM EST Office Visit [facility] [address] [place] [id number] Len Duque MD [address] [facility] [place] [facility] [place] [address] [place] [address] [facility] Start: 01-20-2024 End: 07-19-2024 CBC panel - Blood by Automated count CBC Lab Routine 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) Expected: 01/20/2024 (Approximate), Expires: 07/19/2024 [facility] Service Area Work Phone: Comment on above: Expected: 01/20/2024 (Approximate), Expires: 07/19/2024 Start: 01-20-2024 End: 07-19-2024 Cobalamin (Vitamin B12) [Mass/volume] in Serum or Plasma Vitamin B12 Lab Routine 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) Expected: 01/20/2024 (Approximate), Expires: 07/19/2024 [facility] Work Phone: Comment on above: Expected: 01/20/2024 (Approximate), Expires: 07/19/2024 Start: 01-20-2024 End: 07-19-2024 Comprehensive metabolic 2000 panel - Serum or Plasma Comprehensive Metabolic Panel Lab Routine 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) Expected: 01/20/2024 (Approximate), Expires: 07/19/2024 [facility] Work Phone: Comment on above: Expected: 01/20/2024 (Approximate), Expires: 07/19/2024 Start: 01-20-2024 End: 07-19-2024 Hemoglobin A1c/Hemoglobin.total in Blood Hemoglobin A1C Lab Routine 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) Expected: 01/20/2024 (Approximate), Expires: 07/19/2024 [facility] Work Phone: Comment on above: Expected: 01/20/2024 (Approximate), Expires: 07/19/2024 Start: 01-20-2024 End: 07-19-2024 Lipid 1996 panel - Serum or Plasma Lipid Panel Lab Routine Hypercholesterolemia Expected: 01/20/2024 (Approximate), Expires: 07/19/2024 [facility] Work Phone: Comment on above: Expected: 01/20/2024 (Approximate), Expires: 07/19/2024 Start: 01-20-2024 End: 07-19-2024 Prostate specific Ag [Mass/volume] in Serum or Plasma Prostate Specific Antigen Lab Routine Prostate cancer (Multi) Expected: 01/20/2024 (Approximate), Expires: 07/19/2024 [facility] Work Phone: Comment on above: Expected: 01/20/2024 (Approximate), Expires: 07/19/2024 Start: 12-27-2023 Lipid panel Lipid Panel [facility] Start: 11-07-2023 Influenza vaccination Influenz a Vaccine (Season Ended) [facility] Start: 10-02-2023 Hemoglobin A1c measurement Diabetes: Hemoglobin A1C [facility] Start: 07-27-2023 End: 07-27-2023 Patient encounter procedure 07/27/2023 3:00 PM EDT Office Visit [facility] [address] [id number] Len Duque MD [address] [facility] [place] [facility] [place] [address] [place] [address] [facility] Start: 07-23-2023 End: 02-24-2024 Comprehensive metabolic 2000 panel - Serum or Plasma Comprehensive Metabolic Panel Lab Routine 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 (CMS/HCC) Expected: 07/23/2023 (Approximate), Expires: 02/24/2024 [facility] Service Area Work Phone: Comment on above: Expected: 07/23/2023 (Approximate), Expires: 02/24/2024 Start: 07-23-2023 End: 02-24-2024 Hemoglobin A1c/Hemoglobin.total in Blood Hemoglobin A1C Lab Routine 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 (CMS/HCC) Expected: 07/23/2023 (Approximate), Expires: 02/24/2024 [facility] Work Phone: Comment on above: Expected: 07/23/2023 (Approximate), Expires: 02/24/2024 Start: 03-28-2023 Hemoglobin A1c measurement Diabetes: Hemoglobin A1C [facility] Start: 02-16-2023 End: 02-16-2023 Patient encounter procedure 02/16/2023 4:00 PM EST Office Visit [facility] [address] [place] [id number] Len Duque MD [address] [facility] [place] [facility] [place], [address] [place] [address] [facility] Start: 01-10-2023 Lipid panel Lipid Panel [facility] Start: 01-07-2023 End: 07-08-2023 CBC panel - Blood by Automated count CBC Lab Routine 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 (CMS/HCC) Expected: 01/07/2023 (Approximate), Expires: 07/08/2023 [facility] Work Phone: Comment on above: Expected: 01/07/2023 (Approximate), Expires: 07/08/2023 Start: 01-07-2023 End: 07-08-2023 Comprehensive metabolic 2000 panel - Serum or Plasma Comprehensive Metabolic Panel Lab Routine 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 (CMS/HCC) Expected: 01/07/2023 (Approximate), Expires: 07/08/2023 [facility] Work Phone: Comment on above: Expected: 01/07/2023 (Approximate), Expires: 07/08/2023 Start: 01-07-2023 End: 07-08-2023 Hemoglobin A1c/Hemoglobin.total in Blood Hemoglobin A1C Lab Routine 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 (CMS/HCC) Expected: 01/07/2023 (Approximate), Expires: 07/08/2023 [facility] Work Phone: Comment on above: Expected: 01/07/2023 (Approximate), Expires: 07/08/2023 Start: 01-07-2023 End: 07-08-2023 Lipid 1996 panel - Serum or Plasma Lipid Panel Lab Routine Hypercholesterolemia Expected: 01/07/2023 (Approximate), Expires: 07/08/2023 [facility] Work Phone: Comment on above: Expected: 01/07/2023 (Approximate), Expires: 07/08/2023 Start: 01-07-2023 End: 07-08-2023 Magnesium [Mass/volume] in Serum or Plasma Magnesium Lab Routine 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 (CMS/HCC) Expected: 01/07/2023 (Approximate), Expires: 07/08/2023 [facility] Work Phone: Comment on above: Expected: 01/07/2023 (Approximate), Expires: 07/08/2023 Start: 01-07-2023 End: 07-08-2023 Prostate specific Ag [Mass/volume] in Serum or Plasma PSA Lab Routine Prostate cancer ([facility]/HCC) Expected: 01/07/2023 (Approximate), Expires: 07/08/2023 [facility] Service Area Work Phone: Comment on above: Expected: 01/07/2023 (Approximate), Expires: 07/08/2023 Start: 01-07-2023 End: 07-08-2023 TSH with reflex to Free T4 if abnormal TSH with reflex to Free T4 if abnormal Lab Routine Primary hypertension Expected: 01/07/2023 (Approximate), Expires: 07/08/2023 [facility] Work Phone: Comment on above: Expected: 01/07/2023 (Approximate), Expires: 07/08/2023 Start: 11-06-2022 COVID-19 Vaccine () COVID-19 Vaccine () [facility] Start: 11-06-2022 Influenza vaccination [facility] Start: 07-07-2022 EPV, Provider: Len Duque, Status: Pen, Time: 3:30 PM EPV, Provider: Len Duque, Status: Pen, Time: 3:30 PM [facility] Work Phone: Start: 04-12-2022 Hemoglobin A1c measurement Diabetes: Hemoglobin A1C [facility] Start: 01-13-2022 EPV, Provider: Len Duque, Status: Pen, Time: 3:30 PM EPV, Provider: Len Duque, Status: Pen, Time: 3:30 PM [facility] Wellness Work Phone: Start: 07-11-2021 EPV, Provider: Len Duque, Status: Pen, Time: 2:30 PM EPV, Provider: Len Duque, Status: Pen, Time: 2:30 PM [facility] Work Phone: Start: 01-25-2021 COVID-19 Vaccine (4 - Booster for Pfizer series) COVID-19 Vaccine (4 - Booster for Pfizer series) [facility] Start: 01-25-2021 COVID-19 Vaccine (4 - Pfizer series) COVID-19 Vaccine (4 - Pfizer series) [facility] Start: 01-09-2021 EPV, Provider: Len Duque, Status: Pen, Time: 2:00 PM EPV, Provider: Len Duque, Status: Pen, Time: 2:00 PM [facility] Work Phone: Start: 01-08-2021 Assay of prostate specific antigen total Prostate Specific Antigen [facility] Work Phone: Start: 01-08-2021 CBC W Auto Differential panel - Blood Complete Blood Count [facility] Work Phone: Start: 01-08-2021 Comprehensive metabolic 2000 panel - Serum or Plasma Comprehensive Metabolic Panel [facility] Work Phone: Start: 01-08-2021 Cyanocobalamin vitam in b-12 Vitamin B12, Serum [facility] Work Phone: Start: 01-08-2021 Hemoglobin glycosylated a1c Hemoglobin A1C [facility] Work Phone: Start: 01-08-2021 Lipid panel Lipid Panel [facility] Work Phone: Start: 01-05-2021 Urine screening for protein Diabetes: Urine Protein Screening [facility] Start: 07-08-2020 Assay of prostate specific antigen total Prostate Specific Antigen [facility] Work Phone: Start: 07-08-2020 CBC W Auto Differential panel - Blood Complete Blood Count [facility] Work Phone: Start: 07-08-2020 Comprehensive metabolic 2000 panel - Serum or Plasma Comprehensive Metabolic Panel [facility] Work Phone: Start: 07-08-2020 Cyanocobalamin vitam in b-12 Vitamin B12, Serum [facility] Work Phone: Start: 07-08-2020 Hemoglobin glycosylated a1c Hemoglobin A1C [facility] Work Phone: Start: 07-08-2020 Lipid panel Lipid Panel [facility] Work Phone: Start: 01-11-2020 Assay of prostate specific antigen total Prostate Specific Antigen [facility] Work Phone: Start: 01-11-2020 Cobalamin (Vitamin B12) [Mass/Vol] Vitamin B12, Serum [facility] Work Phone: Start: 01-11-2020 Comprehensive metabolic 2000 panel [facility] Work Phone: Start: 01-11-2020 HbA1c (Bld) [Mass fraction] Hemoglobin A1C [facility] Work Phone: Start: 01-11-2020 Lipid panel Lipid Panel [facility] Work Phone: Start: 11-06-2017 Influenza vaccination SEQUENTI AL INFLUENZA VACCINE (#1) [facility] Start: 2007 Pneumococcal vaccination PNEUMOCOCCAL VACCINE AGE 65+ (1 of 2 - PCV13) [facility] Start: 2002 RSV patient s and/or patients aged 60+ years (1 - 1-dose 60+ series) RSV patients and/or patients aged 60+ years (1 - 1-dose 60+ series) [facility] Start: 2002 Zoster vaccine hzv live for subcutaneous use ZOSTER VACCINE [facility] Start: 1992 Zoster Vaccines (1 o f 2) Zoster Vaccines (1 of 2) [facility] Start: 1952 Diabetic foot examination Diabetes: Foot Exam [facility] Start: 1952 Glaucoma screening Diabetes: R etinopathy Screening [facility] Start: 1952 Ophthalmic examinati on and evaluation Diabetes: Retinopathy Screening [facility] Start: 1942 Examination of skin Derm Melanoma Sk in Check [facility] Start: 1942 Screening [facility] Start: 1942 Tetanus vaccination TETANUS EVERY 10 YR [facility] Start: 1942 Yearly Adult Physical Yearly Adult P hycal [facility] Patient Education ED Chest Pain, Noncardiac ED Chest Wall Strain [facility] Work Phone: Patient referral [facility] Work Phone: NEGATED: Highlighted row has been ruled out! Planned Goals not documented [facility] Work Phone: Immunizations Immunization Date Immunization Notes Care Provider Fa cili 01-01-2024 influenza, seasonal, injectable Len Duque MD Work Phone: [facility] Work Phone: 01-01-2024 Pfizer Purple Cap SARS-CoV-2 Len Duque MD Work Phone: [facility] Work Phone: 01-01-2024 Respiratory Synctial Virus (Rsv), Unspecified Len Duque MD Work Phone: [facility] Work Phone: 01-23-2022 Pfizer COVID-19 Vac Bivalent 30 MCG/0.3ML Intramuscular Suspension Len Rodgersyder Work Phone: [facility] Work Phone: Comment on above: Series: 12-01-2021 Fluzone High-Dose Quadrivalent 0.7 ML Intramuscular Suspension Prefilled Syringe Len Rodgersyder Work Phone: [facility] Work Phone: Comment on above: Series: 12-01-2021 influenza virus vacc ine, unspecified formulation Len Duque MD Work Phone: [facility] Work Phone: 08-24-2021 zoster vaccine recombinant Len Rodgersyder Work Phone: [facility] Work Phone: Comment on above: Series: 08-24-2021 zoster vaccine, live Len Rodgersyder Work Phone: [facility] Work Phone: Comment on above: Series: 06-20-2021 zoster vaccine recombinant Len Duque Work Phone: [facility] Work Phone: Comment on above: Series: 11-30-2020 influenza, high dose seasonal, preservative-free Len Duque Work Phone: [facility] Work Phone: Comment on above: Series: 11-30-2020 influenza, seasonal, injectable Len Duque Work Phone: [facility] Work Phone: Comment on above: Series: 11-30-2020 Influenza, Seasonal, Quadrivalent, Adjuvanted Len Duque MD Work Phone: [facility] Work Phone: 11-30-2020 [employer] COVI D-19 Vacc 30 MCG/0.3ML Intramuscular Suspension Len Duque Work Phone: [facility] Work Phone: Comment on above: Series: 04-24-2020 Pfizer-BioNTech COVI D-19 Vacc 30 MCG/0.3ML Intramuscular Suspension Len Duque [facility] Work Phone: Comment on above: Series: 04-03-2020 Pfizer-BioNTech COVI D-19 Vacc 30 MCG/0.3ML Intramuscular Suspension Len Duque [facility] Work Phone: Comment on above: Series: 12-20-2019 influenza virus vacc ine, unspecified formulation Len Duque Work Phone: [facility] Work Phone: Comment on above: Series: 12-20-2019 influenza, injectabl e, quadrivalent, preservative free Len Duque MD Work Phone: [facility] Work Phone: 12-20-2019 influenza, seasonal, injectable Lenjosé Moralezer [facility] Work Phone: Comment on above: Series: 12-20-2019 influenza, seasonal, injectable Len Duque [facility] Work Phone: 01-06-2019 influenza, seasonal, injectable Lenjosé Moralezer [facility] Work Phone: Comment on above: Series: 12-24-2017 influenza virus vacc ine, unspecified formulation; Translations: [influenza virus vaccine, unspecified formulation] Len Duque [facility] Work Phone: Comment on above: Series: 07-09-2017 tetanus toxoid, redu omaira diphtheria toxoid, and acellular pertussis vaccine, adsorbed Len Duque [facility] Work Phone: Comment on above: Series: 12-30-2016 influenza virus vacc ine, live, attenuated, for intranasal use Len Duque MD Work Phone: [facility] Work Phone: 07-14-2016 pneumococcal conjuga te vaccine, 13 valayana Duque [facility] Work Phone: Comment on above: Series: 01-19-2011 pneumococcal polysaccharide vaccine, 23 valayana Duque [facility] Work Phone: Comment on above: Series: Payers Date Payer Category Payer Medicaid [id number] 2024 Self-pay [id number] 2023 Managed Care (Private) [facility] PL[facility] [id number] 2023 Private Health Insurance [id number] 2023 Private Health Insurance [id number] 2015 Medicare supplementa l policy (as second payer) [employer] MEDICARE SUPPLEMENT [id number] 2015 Medicare [id number] 2015 Private Health Insurance [id number] 2011 Private Health Insurance 2011 Private Health Insurance [id number] 1942 Unknown [id number] .717 1942 Unknown [id number] 2.16.840.1.338756.3.579.2 .356 1942 Unknown [id number] [id number] .356 1942 Unknown [id number] 2.16.840.1.820846.3.579.2 .356 1942 Unknown [id number] 2.16.840.1.316952.3.579.2 .1245 1942 Unknown [id number] 2.16.840.1.746891.3.579.2 .1245 1942 Unknown [id number] 2.16.840.1.488070.3.579.2 .1244 1942 Unknown [id number] 2.16.840.1.455907.3.579.2 .1244 Unknown Unknown [id number] 2.16.840.1.922223.3.579.2 .462 Unknown [id number] 2.16.840.1.202723.3.579.2 .462 Unknown [id number] 2.16.840.1.161252.3.579.2 .462 Unknown [id number] 2.16.840.1.103894.3.579.2 .462 Unknown [id number] 2.16.840.1.326058.3.579.2 .462 Unknown [id number] 2.16.840.1.392256.3.579.2 .462 Unknown [id number] 2.16.840.1.250785.3.579.2 .462 Unknown [id number] 2.16.840.1.296873.3.579.2 .462 Unknown [id number] 2.16.840.1.242524.3.579.2 .462 Unknown [id number] 2.16.840.1.505734.3.579.2 .462 Unknown [id number] 2.16.840.1.319850.3.579.2 .462 Unknown [id number] 2.16.840.1.799065.3.579.2 .462 Unknown [id number] 2.16.840.1.883527.3.579.2 .462 Unknown [id number] 2.16.840.1.422560.3.579.2 .462 Unknown [id number] 2.16.840.1.580103.3.579.2 .462 Social History Date Type Detail Facility Start: 09-13-2017 End: 09-21-2024 Tobacco smoking status MOIS Former smoker [facility] Sex Assigned At Not on file [facility] Start: 07-07-2022 End: 01-11-2023 No recent foreign travel No recent foreign travel [facility] Work Phone: Start: 12-06-2021 Tobacco smoking status [facility] Unknown if ever smoked [facility] Work Phone: Start: 12-06-2021 [facility]: 12-06-2021 Non-smoker [facility] Start: 1940 Sex Assigned At Male [facility] Start: 03-08-1954 End: 03-08-1964 History of tobacco use Current smoker [facility] Work Phone: Start: 03-08-1954 End: 03-08-1964 History of tobacco use Cigarette Smoker [facility] Work Phone: Start: 07-07-2022 End: 07-20-2023 Tobacco use and exposure Smokeless tobacco non-user [facility] Work Phone: Start: 07-07-2022 Alcohol intake Lifetime non-d marii (finding) [facility] Work Phone: Start: 07-07-2022 End: 01-11-2023 Tobacco use panel [facility] Work Phone: Start: 07-05-2022 Gender identity Identifies as male gender (finding) [facility] Work Phone: Start: 06-27-2022 End: 01-20-2024 Exposure to SARS-CoV-2 (event) Not sure [facility] Start: 01-11-2023 End: 01-20-2024 Alcohol intake Ex-drinker (finding) [facility] Work Phone: NEGATED: Highlighted row - - [facility] Work Phone: Functional Status Date Assessment Result Facility NEGATED: Highlighted row Functional performance Functional status health issues are not documented Disease [facility] Work Phone: Mental Status Date Assessment Result Facility 12-06-2021 Cognitive function Awake;Alert;A ppropria te;Inappropriate [facility] Work Phone: NEGATED: Highlighted row Cognitive function [Interpretation] Cognitive status health issues are not documented Disease [facility] Work Phone: Clinical Notes 01-09-2021 to 01-20-2024 [...] Bilateral renal cysts Cervical spondylolysis 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 Diabetic mononeuropathy [...] - Established; Future documented in this encounter [facility] Work Phone: 07-20-2023 History of Present [...] States in August had pressure sore, used Foster and it cleared, but notes today he [...] prostatic hyperplasia with urinary obstruction 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 documented in this encounter [facility] Work Phone: 01-11-2023 History of Present [...] on confused days. Follows with urologist in [place]. CERVICAL SPONDYLOSIS WITHOUT MYELOPATHY - has been [...] States in August had pressure sore, used Foster and it cleared, but notes today he [...] Normal appearance. Comments: Most of history from [facility]: Head: Normocephalic. Right Ear: Tympanic membrane, ear [...] renal cysts Cervical spondylolysis Coronary atherosclerosis of ramona coronary artery Relevant Medications clopidogrel (Plavix) 75 [...] appetite. Patient initially seen by Melody Dunham [employer] student. I reviewed history and examined patient independently and updated as needed. documented in this encounter [facility] Work Phone: 07-07-2022 History of Present [...] Present, No bruit present. Integumentary: Warm, Dry, [place]. Psychiatric: Cooperative, Appropriate mood & affect, Normal judgment. Behavior: No pressured speech. Judgment: Able to make sensible decisions. Thought process: Appropriate. Low back not tender but tight with extension. No cogwheeling or tremor Assessment/Plan Problem List Items Addressed This Visit Benign prostatic hyperplasia with urinary obstruction - Primary Bilateral renal cysts Cervical spondylolysis Coronary atherosclerosis of ramona coronary artery Relevant Medications clopidogrel (Plavix) 75 mg tablet metoprolol succinate XL (Toprol-XL) 100 mg 24 hr tablet nitroglycerin (Nitrostat) 0.4 mg SL tablet 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) Relevant Orders Follow Up In Primary Care Prostate cancer ([facility]) Relevant Orders PSA Pseudophakia, both eyes Urge incontinence of urine Patient was identified as a fall risk. Risk prevention instructions provided. He was in the yard. Stumbled due to slow reflexes. When having more confusion. No injury documented in this encounter [facility] Work Phone: 07-07-2022 Instructions Len Duque [...] your healthcare team if you have questions [facility], 2021 documented in this encounter [facility] Work Phone: 01-13-2022 History of Present [...] Did have some swelling when driving to [place] after a long drive without walks.Having some leaking urine that is better on the medication. [facility] Work Phone: 01-09-2021 History of Present [...] up words. Names OK. Greets people at [facility]. Last day is tomorrow. 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 (CMS/HCC) Diabetic [...] urine Urge incontinence documented in this encounter [facility] Work Phone: Evaluation note* Diagnosis Routine general medical examination at health care facility- Primary Routine general medical examination at a health care facility 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, psychotic disturbance, mood disturbance, or anxiety (CMS/HCC) Hypercholesterolemia Pure hypercholesterolemia 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 (CMS/HCC) Primary [...] of skin (CMS/HCC) documented in this encounter [facility] Work Phone: Evaluation note* Diagnosis 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 (CMS/HCC)- Primary Abnormal weight loss Loss of weight 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, psychotic disturbance, mood disturbance, or anxiety (CMS/HCC) documented in this encounter [facility] Work Phone: Evaluation note* Diagnosis Abnormal weight loss- Primary Loss of weight 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 I believe your pain is related to muscles in the chest wall. 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, psychotic disturbance, mood disturbance, or anxiety (CMS/HCC) Procedures Follow Up In Primary Care Len Duque MD [address] [facility] [place] [facility] [place], [place] [address] Referral ID Status Reason Start Date Expiration Date V isits Requested Visits Authorized [id number] Authorized 07/07/2022 01/03/2023 1 1 T [facility] Work Phone: reason for referral (narrative)* Consultation (Routine) - Authorized Specialty Diagnoses / Procedures Referred By Contac t Referred To Contact Primary Care Diagnoses Abnormal weight loss Procedures Follow Up In Primary Care - Established Len Duque MD [address] [facility] [place] [facility] [place], [place] [address] Referral ID Status Reason Start Date Expiration Date V isits Requested Visits Authorized [id number] Authorized 01/11/2023 01/11/2024 1 1 [facility] Work Phone: reason for referral (narrative)* Consultation (Routine) - Authorized Specialty Diagnoses / Procedures Referred By Contac t Referred To Contact Primary Care Procedures Follow Up In Primary Care - Established Len Duque MD [address] [facility] [place] [facility] [place], [place] [address] Referral ID Status Reason Start Date Expiration Date V isits Requested Visits Authorized [id number] Authorized 02/23/2023 02/23/2024 1 1 [facility] Work Phone: reason for referral (narrative)* Consultation (Routine) - Authorized Specialty Diagnoses / Procedures Referred By Contac t Referred To Contact Primary Care Diagnoses 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) Procedures Follow Up In Primary Care - Established Len Duque MD [address] [facility] [place] [facility] [place], [place] [address] Referral ID Status Reason Start Date Expiration Date V isits Requested Visits Authorized [id number] Authorized 07/20/2023 07/19/2024 1 1 [facility] Work Phone: reason for referral (narrative)* Consultation (Routine) - Authorized Specialty Diagnoses / Procedures Referred By Ferny ayoub Referred To Contact Primary Care Procedures Follow Up In Primary Care - Established Len Duque MD [address] [facility] [place] [facility] [place], [place] [phone] Phone: tel: fax: Referral ID Status Reason Start Date Expiration Date V isits Requested Visits Authorized [id number] Authorized 01/20/2024 01/19/2025 1 1 [facility] Work Phone: reason for referral (narrative)No reason for referral [facility]: Assessments Diagnosis Coronary artery disease, ang cody presence unspecified, unspecified vessel or lesion type, unspecified whether ramona or transplanted heart Essential hypertension Unspecified essential [...] Will Yes December 06 4:12am Power of Mailing Machine Assistant Yes December 06 4:12am Name of Medical Power of Mailing Machine Assistant Yamila Young December 06, 2021 4:12am Chief Complaint medckfollow up memantine Chief Complaint and Reason for Visit Chief Complaint cp Chief Complaint Admit Date ADMISSION EXAM August 07, 2024 2:45p m Chief Complaint Admit Date ADMISSION EXAM August 07, 2024 2:45p m ADMISSION EXAM August 08, 2024 4:30p m PENITENTIARY LAB WORK August 22, 2024 5: 00am Chief Complaint Admit Date ADMISSION EXAM August 07, 2024 2:45p m ADMISSION EXAM August 08, 2024 4:30p m PENITENTIARY LAB WORK August 22, 2024 5: 00am Monthly Exam September 05, 2024 10:28 pm Chief Complaint Admit Date ADMISSION EXAM August 07, 2024 2:45p m ADMISSION EXAM August 08, 2024 4:30p m PENITENTIARY LAB WORK August 22, 2024 5: 00am Monthly Exam September 05, 2024 10:28 pm PENITENTIARY LAB WORK October 02, 2024 5: 00am MONTHLY EXAM October 06, 2024 11: 00am Chief Complaint Admit Date ADMISSION EXAM August 07, 2024 2:45p m ADMISSION EXAM August 08, 2024 4:30p m PENITENTIARY LAB WORK August 22, 2024 5: 00am Monthly Exam September 05, 2024 10:28 pm PENITENTIARY LAB WORK October 02, 2024 5: 00am MONTHLY EXAM October 06, 2024 11: 00am PENITENTIARY LAB WORK October 27, 2024 11:00am New [...] section and content) DATE CREATED AUTHOR 07/17/2018 [facility] DATE CREATED AUTHOR AUTHOR'S ORGANIZ ATION 06/24/2020 [facility] DATE CREATED AUTHOR AUTHOR'S ORGANIZ ATION 02/18/2022 [employer] DATE CREATED AUTHOR AUTHOR'S ORGANIZ ATION 04/20/2022 [facility] DATE CREATED AUTHOR AUTHOR'S ORGANIZ ATION 01/25/2024 [facility] DATE CREATED AUTHOR AUTHOR'S ORGANIZ ATION 07/17/2024 [facility] DATE CREATED AUTHOR AUTHOR'S ORGANIZ ATION 09/02/2024 [facility] DATE CREATED AUTHOR AUTHOR'S ORGANIZ ATION 01/14/2025 [facility] Goals (unrecognized section and [...] Len Duque MD [address] [facility] [place] [facility] [place], [place] [phone] Referral ID Status Reason Start Date Expiration Date V isits Requested Visits Authorized [id number] Authorized 02/23/2023 02/23/2024 1 1 Reason Comments Medicare Annual Wellness Visit Initial Specialty Diagnoses / Procedures Referred By Contac t Referred To Contact Primary Care Diagnoses 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) Procedures Follow Up In Primary Care Len Duque MD [address] [facility] [place] [facility] [place], [place] [phone] Referral ID Status Reason Start Date Expiration Date Visits Re quested Visits Authorized [id number] Closed 07/07/2022 01/03/2023 1 1 Reason Comments Follow-up memory Specialty Diagnoses / Procedures Referred By Contac t Referred To Contact Primary Care Diagnoses Abnormal weight loss Procedures Follow Up In Primary Care - Established Len Duque MD [address] [facility] [place] [facility]– [place], [place] [id number] Referral ID Status Reason Start Date Expiration Date V isits Requested Visits Authorized [id number] Authorized 01/11/2023 01/11/2024 1 1 Specialty Diagnoses / Procedures Referred By Contac t Referred To Contact Primary Care Diagnoses 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) Procedures Follow Up In Primary Care - Established Len Duque MD [address] [facility] [place] [facility]– [place], [place] [id number] Phone: tel: fax: Referral ID Status Reason Start Date Expiration Date V isits Requested Visits Authorized [id number] Authorized 07/20/2023 07/19/2024 1 1 Care Teams (unrecognized sec tion and content) Tenter Feeder Relationship Specialty Start Date End Date Len Duque MD [address] [facility] [place] [facility]– [place], [address] [place], [id number] PCP - General 11/08/18 Tenter Feeder Relationship Specialty Start Date End Date Len Duque MD [address] [facility], [address] [place] [address] PCP - General 11/08/18 Tenter Feeder Relationship Specialty Start Date End Date Len Duque MD [address] [facility], [address] [place] [address] PCP - General 11/08/18 Tenter Feeder Relationship Specialty Start Date End Date Len Duque MD [address] [facility] [place] [facility]– [place], [address] [place] [address] PCP - General 11/08/18 Tenter Feeder Relationship Specialty Start Date End Date Len Duque MD [address] [facility], [address] [place] [address] PCP - General 11/08/18 Team Status: Active Member Role/Relationship Status Dates Dr. Len Duque MD Family Provider Active Dr. Len Duque MD Primary Care Provider Active Team Status: Inactive Member Role/Relationship Status Dates Dr. Len Duque MD Primary Care Provider Active Start: August 07, 2024 End: August 07, 2024 Kirti Ortiz NP [employer] Attending Provider Active Start: August 07, 2024 End: August 07, 2024 Team Status: Active Member Role/Relationship Status Dates Dr. Len Duqeu MD Primary Care Provider Active Start: August [...] 2024 End: October 27, 2024 Kirti Ortiz NP, [employer] Attending Provider Active Start: October 27, 2024 [...] BE BASED ON THE PRIMARY CLINICAL RECORDS. [facility] [employer] [facility]. provides no warranty or guarantee of the accuracy or completeness of information in this document.
[2025-01-30 07:36] LABS: AST(SGOT) 17 U/L (<=37); Alanine Aminotransfer ALT/SGPT 8 U/L (<=46); Albumin, Serum 3.4 g/dL (3.4-4.8); Alkaline Phosphatase 64 U/L (40-129); Bilirubin, Direct 0.15 mg/dL (0.00-0.30); Globulin 2.2 g/dL (2.2-4.2)
== END ==
LOC: OLS.WHLCAR 05:00
PROVIDERS: PCP Family Medicine; Visit Provider Internal Medicine
DX: I12.9 Hypertensive chronic kidney disease with stage 1 through stage 4 chronic kidney disease, or unspecified chronic kidney disease (principal); E11.22 Type 2 diabetes mellitus with diabetic chronic kidney disease; N18.9 Chronic kidney disease, unspecified; E11.41 Type 2 diabetes mellitus with diabetic mononeuropathy
CPT/HCPCS: 36415; 80076; 83036

== ENCOUNTER 2025-02-21 10:06 | Emergency (ER) | payer MEDICARE, OTHER, MEDICAID, SELFPAY ==
[2025-02-21 10:07] VITALS: BP 142/72; PULSE 53; RESP 16; TEMP 36.6; O2SAT 97; BMI 21.7
--- NOTE | 2025-02-21 11:48 | EX.ED.DYSGE1 ---
HPI History of Present Illness Chief Complaint: Wound Informant: spouse/S.O. Onset/Context/Timing Onset: Days Context: Sudden Onset Timing: Intermittent Quality: Bleeding Location: Mouth Worsened by: Nothing Relieved by: Nothing Narrative Narrative: Patient presents with bleeding to his mouth that has been intermittent for the past couple days. states that she was told that the patient bit his tongue couple days ago and it was bleeding. states it stopped. states that today started bleeding again and patient was referred to the emergency department. states that the lower lip appears to be somewhat swollen. Patient has a history of dementia and is a poor informant. [facility] Medical History (Updated 02/21/25 @ 11:[address] Russell Ham, DO) Hx of malignant neoplasm of prostate Benign essential hypertension CAD (coronary artery disease) Diabetes mellitus, type 2 GERD (gastroesophageal reflux disease) Hyperlipidemia Dementia Home Medications ?Medication ?Instructions ?Recorded ?Last Taken ?Type aspirin 325 mg tablet 325 mg PO DAILY 04/28/16 09/07/16 History atorvastatin 40 mg tablet 40 mg PO QHS 04/28/16 Unknown History enalapril maleate 10 mg tablet 10 mg PO DAILY 04/28/16 09/18/16 History (Vasotec) glucosamine 750 [id number] 1 ea PO DAILY 04/28/16 Unknown History no1 644 mg-C 30 mg-jailyn 1 mg tablet (Osteo Bi-Flex Triple Strength) hydrochlorothiazide 12.5 mg capsule 12.5 mg PO DAILY 04/28/16 Unknown History metformin 500 mg tablet 500 mg PO DAILY 04/28/16 Unknown History metoprolol succinate 100 mg 100 mg PO DAILY 04/28/16 Unknown History tablet,extended release 24 hr (Toprol XL) multivitamin with folic acid 400 1 tab PO DAILY 04/28/16 Unknown History mcg tablet (Thera) nitroglycerin 0.4 mg sublingual 0.4 mg sublingual PRN PRN Angina 04/28/16 Unknown History tablet sucralfate 1 gram tablet 1 g PO QHS 04/28/16 Unknown History clopidogrel 75 mg tablet 75 mg PO DAILY 09/10/16 09/07/16 History metoprolol succinate 50 mg 50 mg PO DINNER 09/10/16 09/18/16 History tablet,extended release 24 hr (Toprol XL) omeprazole 20 mg capsule,delayed 20 mg PO DINNER 09/10/16 Unknown History release solifenacin 10 mg tablet (Vesicare) 10 mg PO DAILY 09/10/16 Unknown History methocarbamol 500 mg tablet 500 mg PO 4X/DAY PRN PRN Muscle 12/06/21 Unknown Rx pain/spasm #40 tabs Allergy/AdvReac Type Severity Reaction Status Date / Time nabumetone (From Relafen) AdvReac Other Verified 02/21/25 10:07 Surgical History History of heart artery stent Social History Smoking Status: Former smoker ROS ROS ED Review of Systems ROS Unobtainable: due to mental condition Constitutional Constitutional ED: Denies chills or fever(s) Respiratory/Chest Respiratory/Chest: Denies cough or dyspnea Gastrointestinal Gastrointestinal: Denies nausea or vomiting Musculoskeletal Musculoskeletal: Denies back pain or neck pain Integumentary Denies rash Neurologic Neurologic: Denies headache(s) Allergic/Immunologic Allergic/Immunologic ED: Denies mouth swelling or urticaria EXAM Physical Exam Const Vital Signs: 02/21/25 10:07 Temperature 97.9 F Temperature Source Oral Pulse Rate 53 L Respiratory Rate 16 Blood Pressure 142/72 H Blood Pressure Mean 95 Pulse Ox 97 Oxygen Delivery Method Room Air Positive well nourished and well developed General Appearance ED: well developed and NAD HEENT Reports moist mucous membranes HEENT Narrative: There is some dried blood noted over the left lower gingiva over the second premolar and first molar. There is no active bleeding. There are no lacerations of the tongue or lower lip. Neck supple and no JVD MDM MDM MDM Narrative Medical decision making narrative: states that patient does pick at his teeth. states that it is possible that he broke off his tooth. Surgicel was applied to the dental socket. There is no further bleeding noted. Patient was instructed to follow-up with his primary care physician and dentist in 3 to 5 days. Patient was instructed to return if worse in any way. understood and was agreeable with plan. All questions were answered. Discharge Plan Triage Chief Complaint: Wound ED Provider: Russell Ham Dx/Rx/DC Orders Clinical Impression: Gingival bleeding, Dementia Instructions: Delirium and Dementia Prescriptions: No Action atorvastatin 40 MG tablet 40 mg PO QHS Patient Comments: CHOLESTEROL metformin 500 MG tablet 500 mg PO DAILY Patient Comments: DIABETES enalapril maleate [Vasotec] 10 MG tablet 10 mg PO DAILY Patient Comments: BP aspirin 325 MG tablet 325 mg PO DAILY Patient Comments: WAS TOLD TO STOP FOR SURGERY 10 DAYS PRE OP sucralfate 1 GM tablet 1 g PO QHS Patient Comments: STOMACH metoprolol succinate [Toprol XL] 100 MG tablet extended release 24 hr 100 mg PO DAILY Patient Comments: BP hydrochlorothiazide 12.5 MG capsule 12.5 mg PO DAILY Patient Comments: WATER PILL nitroglycerin 0.4 MG tablet, sublingual 0.4 mg sublingual PRN PRN (Reason: Angina) Patient Comments: ALSO TAKES PRIOR TO TREADMILL EXERCISE PER MD multivitamin with folic acid [Thera] 1 TABLET tablet 1 tab PO DAILY [id number] [Osteo Bi-Flex Triple Strength] 1 EACH tablet 1 ea PO DAILY Patient Comments: SUPPLEMENT metoprolol succinate [Toprol XL] 50 MG tablet extended release 24 hr 50 mg PO DINNER Patient Comments: BP omeprazole 20 MG capsule 20 mg PO DINNER Patient Comments: REFLUX solifenacin [Vesicare] 10 MG tablet 10 mg PO DAILY Patient Comments: URINE clopidogrel 75 MG tablet 75 mg PO DAILY Patient Comments: WAS TOLD TO STOP FOR SURGERY methocarbamol 500 mg tablet 500 mg PO 4X/DAY PRN PRN (Reason: Muscle pain/spasm) Qty: 40 0RF Primary Care Provider: Berry Black Referrals: Berry Black PA [Primary Care Provider, Family Practice] - 5-7 Days Print Language: Pashto Disposition Disposition: Home, Self Care
[2025-02-21 12:04] VITALS: BP 129/66; PULSE 79; RESP 16; TEMP 36.6; O2SAT 96
--- OUTSIDE RECORDS SUMMARY | 2025-02-21 18:33 | XMS RPT_ITS | CCD ---
Author Organization [facility] Informat ion [facility] Care Team Providers Care Resin Coater Name Role Phone Len Duque Unavailable Len [...] Dr. Len Cuevas Primary Care Provider Tickmylene CONSERVATION PLANNER-C, Kirti Attending Provider Chau Smallwood MD Attending Provider Unavaila lizzeth Smallwood MD, Dr. Ritchie Attending Provider Ungerer CONSERVATION PLANNER-C, Catrina Attending Provider Oleghe OLS, Efewongbe Attending [...] Care Unavailable Oleghe, Efewongbe Attending Unavailable Tickton CONSERVATION PLANNER, Kirti Attending Unavailable Len Duque O Primary Care Unavailable [place] CONSERVATION PLANNER, Kirti Attending Unavailable Len Duque Primary Care Unavailable Len Duque Primary Care Unavailable Catrina Prasad Attending Unavailable [place] CONSERVATION PLANNER, Kirti Attending Unavailable Len Duque O Primary Care Unavailable [place] CONSERVATION PLANNER, Kirti Attending Unavailable Len Duque Primary Care Unavailable DuqueLen barnes Primary Care Unavailable Oleghe, Efewongbe Attending Unavailable DuqueLen barnes O Primary Care Unavailable Oleghe, Efewongbe Attending Unavailable Oleghe OLS, Efewongbe Attending Unavailabl e Len Duque O Primary Care Unavailable Allergies Allergy Classification Reported Allergen(s) Allergy Type Date of Onset Reaction(s) Facility NSAIDs (4 sources) NSAIDs; Translations: [NSAIDs] Drug Allergy [facility] Work Phone: (20 sources) nabumetone; Translations: [Relafen] Drug Allergy 5 Unknown [facility] Comment on above: KIDNEY DAMAGE (4 sources) nabumetone; Translations: [Relafen] Drug Allergy [facility] Repository (9 sources) NSAIDs; Translations: [NSAIDs] Propensity to adverse reactions to drug (disorder) [facility] Repository (7 sources) Non-steroidal anti-inflammator y agent; Translations: [NSAIDS (NON-STEROIDAL ANTI-INFLAMMATOR Y DRUG)] Drug Allergy 3 Unknown [facility] Work Phone: (5 sources) Mirtazapine; Translations: [MIRTAZAPINE] Drug Allergy 3 Other [facility] Work Phone: (1 source) nabumetone Drug Allergy 7 [facility] Repository Medications Current Medications Medication [...] mg PO DAILY April 28, 2016 1:00am Qpgucafi-Zhud-Ujy 3-P-Mxrr-Bosw (Osteo Bi-Flex Caplet) 1 EACH tablet (7 sources) Start: 04-28-2016 take 1 tablet by mouth once daily Wotzcryr-Tocv-Dbv 2-T-Mrgh-Bosw (Osteo Bi-Flex Caplet) 1 EACH tablet Active 1 NMA PO DAILY April 28, 2016 1:00am Start: 04-28-2016 take 1 tablet by dmitri once daily Nztixhqu-Ugwc-Mpg6-C-Isreal-Bosw (Osteo Bi -Flex Caplet) 1 EACH tablet [...] mg extended release oral capsule (8 sources) O-ykdflk-L-aspart ate Receptor Antagonist Start: 10-01-2022 End: 04-08-2024 take 1 capsule by mouth once daily memantine (Namenda XR) 28 mg capsule,sprinkle,ER 24hr 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 90 capsule 3 04/09/2023 04/08/2024 Active Start: 02-17-2022 take 1 capsule by mo [facility] once daily Memantine HCl ER 28 MG Oral Capsule Extended Release 24 Hour TAKE 1 CAPSULE Daily Quantity: 90 Refills: 3 Ordered: 13-Mar-2022 Lne Duque MD Start : 17-Feb-2022 Active change [...] Active Start: 04-17-2019 take 2 tablets by [facility] once daily metFORMIN HCl ER 500 MG Oral Tablet Extended Release 24 Hour TAKE 2 TABLET Daily Quantity: 180 Refills: 3 Ordered: 13-Jan-2022 Len Duque MD Start : 17-Apr-2019 Active Start: 04-17-2019 take 4 tablets by [facility] once daily metFORMIN HCl ER 500 MG Oral Tablet Extended Release 24 Hour TAKE 4 TABLET Daily Quantity: 360 Refills: 1 Ordered: 02-Oct-2021 Len Duque MD Start : 17-Apr-2019 Active Start: 04-28-2016 take 1 tablet by [facility] once daily Metformin 500 MG tablet Active 500 mg PO DAILY April 28, 2016 1:00am take 2 tablets by [facility] once daily metFORMIN XR (Glucophage-XR) [...] mg/ml ophthalmic solution (8 sources) Plasma Volume Rapid Outsole Stitcher Start: 03-12-2020 take 1 drop(s) into the eye(s) once daily as needed Artificial Tears 0.1-0.3 % Ophthalmic Solution INSTILL 1 DROP Daily PRN Quantity: 0 Refills: 0 Ordered: 12-Mar-2020 DO Start : 12-Mar-2020 Active 24 hr donepezil hydrochloride 10 mg / memantine hydrochloride 28 mg extended release oral capsule (2 sources) V-cooddi-C-aspart ate Receptor Antagonist Start: 09-14-2022 End: 01-11-2023 [...] on 11-07-2024 Bilirubin.direct [Mass/Vol] 0.19 mg/dL 0.00-0.30 [facility] Bilirubin, totalOrdered By: Chau Smallwood on 11-07-2024 Bilirubin [Mass/Vol] 0.33 mg/dL 0.00-1.30 [facility] Hemoglobin A1c percentageOrd ered By: Chau Smallwood on 11-07-2024 HbA1c (Bld) [Mass fraction] 6.4 % High <5.7 [facility] Comment on above: Normal < 5.7 % Predi abetic 5.7 - 6.4 % Diabetic >or= 6.5 % Please note range changes. Laboratory - Chemistry and C hemistry - challengeOrdered By: Chau Smallwood on 11-07-2024 AST [Catalytic activity/Vol] 18 U/L <38 [facility] Serum globulin measurementOr dered By: Chau Smallwood on 11-07-2024 Globulin (S) [Mass/Vol] 2.2 g/dL 2.2-4.2 [facility] Serum or plasma alanine yepez otransferase (ALT) measurementOrdered By: Chau Smallwood on 11-07-2024 ALT [Catalytic activity/Vol] 11 U/L <47 [facility] Serum or plasma albumin lisa urement (mass/volume)Ordered By: Chau Smallwood on 11-07-2024 Albumin [Mass/Vol] 3.5 g/dL 3.4-4.8 [facility] Serum or plasma alkaline donavan sphatase measurementOrdered By: Chau Smallwood on 11-07-2024 ALP [Catalytic activity/Vol] 70 U/L 40-129 [facility] Total proteinOrdered By: Sam Smallwood on 11-07-2024 Protein [Mass/Vol] 5.7 g/dL Low 5.9-8.4 [facility] Absolute lymphocyte countOrd ered By: Omarefeyessy Shepardgurdeep on 10-27-2024 Lymphocytes Auto (Unsp spec) [#/Vol] 1.40 10*3/uL 0.83-4.51 [facility] Absolute neutrophil countOrd ered By: Efefeongernie Hortamale on 10-27-2024 Neutrophils (Bld) [#/Vol] 5.1 10*3/uL 2.0-7.7 [facility] Anion gap in Serum or Plasma Ordered By: Chau Hortamale on 10-27-2024 Anion gap [Moles/Vol] 13 mmol/L 5-15 [facility] Automated lymphocyte count a s percentage of total leukocytesOrdered By: Chau Hortamalgurdeep on 10-27-2024 Lymphocytes/100 WBC Auto (Unsp spec) 18.6 % Low 19-41 [facility] BUN/creatinine ratioOrdered By: Chau Hortamale on 10-27-2024 Urea nitrogen/Creatinine [Mass ratio] 24.8 mg/mg High 10-20 [facility] Basophil percentageOrdered B y: Omarefeyessy Mychalmale on 10-27-2024 Basophils/100 WBC (Bld) 0.4 % 0-1 [facility] Carbon dioxide, total [Moles /volume] in Central venous bloodOrdered By: Chau Smallwood on 10-27-2024 CO2 [Moles/Vol] 22.9 mmol/L 21.0-32.0 [facility] Chloride assayOrdered By: Ef efeyessy Smallwood on 10-27-2024 Chloride [Moles/Vol] 103 mmol/L 98-108 [facility] Eosinophil percentageOrdered By: Chau Hortamale on 10-27-2024 Eosinophils/100 WBC (Bld) 1.9 % 0-5 [facility] Erythrocyte distribution wid th ratioOrdered By: Erasmoongbe Mychalmale on 10-27-2024 Erythrocyte distribution width (RBC) [Ratio] 13.2 % 11.6-14.6 [facility] Erythrocyte distribution wid th standard deviationOrdered By: Erasmoongbe Cl on 10-27-2024 Erythrocyte distribution width (RBC) [Ratio] 43.2 fl 35.1-43.9 [facility] Glomerular filtration rate ( GFR) estimation/1.73 sq m using serum, plasma, or whole bOrdered By: hCau Smallwood on 10-27-2024 GFR/1.73 sq M.predicted among non-blacks MDRD (S/P/Bld) [Vol rate/Area] 55 mL/min/{1.73_m2} Low >60 [facility] Comment on above: mL/min/1.73m2 CKD-EP I Creatinine Equation (2020) Hematocrit Auto (Bld) [Volum e fraction]Ordered By: Chau Smallwood on 10-27-2024 Hematocrit (Bld) [Volume fraction] 39.9 % Low 40-54 [facility] Hemoglobin measurementOrdere d By: Chau Smallwood on 10-27-2024 Hemoglobin (Bld) [Mass/Vol] 13.5 g/dL 13.0-16.5 [facility] Immature granulocytes/100 WB C Auto (Bld)Ordered By: Chau Smallwood on 10-27-2024 Immature granulocytes/100 WBC (Bld) 0.400 % 0.0-0.9 [facility] Comment on above: IG% - Immature Granu locytes (promyelocytes, myelocytes and metamyelocytes) > 1% indicates that a LEFT SHIFT is Present. MCV (mean corpuscular volume ) determinationOrdered By: Chau Smallwood 10-27-2024 MCV (RBC) [Entitic vol] 89.3 fL 80-94 [facility] Mean corpuscular hemoglobin (MCH) determinationOrdered By: Chau Smallwood on 10-27-2024 MCH (RBC) [Entitic mass] 30.2 pg 27.0-32.0 [facility] Mean corpuscular hemoglobin concentration (MCHC) determinationOrdered By: Chau Smallwood on 10-27-2024 MCHC (RBC) [Mass/Vol] 33.8 g/dL 32-36 [facility] Mean platelet volume determi nationOrdered By: Chau Smallwood 10-27-2024 Platelet mean volume (Bld) [Entitic vol] 10.3 fL 6.2-12.0 [facility] Monocyte percentageOrdered B y: Chau Smallwood on 10-27-2024 Monocytes/100 WBC (Bld) 10.9 % High 0-10 [facility] Neutrophil percentageOrdered By: Chau Smallwood on 10-27-2024 Neutrophils/100 WBC (Bld) 67.8 % 47-70 [facility] Nucleated red blood cell per centageOrdered By: Chau Smallwood on 10-27-2024 Nucleated RBC/100 WBC (Bld) [Ratio] 0 % 0-5 [facility] Platelet countOrdered By: Omar dove Mychalcarmelo on 10-27-2024 Platelets (Bld) [#/Vol] 149 10*3/uL Low 150-450 [facility] Potassium measurement (mass/ volume)Ordered By: Omarefealinaernie Hortamalgurdeep on 10-27-2024 Potassium (Unsp spec) [Mass/Vol] 4.5 mmol/L 3.3-5.1 [facility] RBC Auto (Bld) [#/Vol]Ordere d By: Chau Smallwood on 10-27-2024 RBC (Bld) [#/Vol] 4.47 10*6/uL Low 4.6-6.2 [facility] Serum creatinine measurement (mass/volume)Ordered By: Omarefealinaernie Hortamalgurdeep on 10-27-2024 Creatinine [Mass/Vol] 1.30 mg/dL High 0.70-1.20 [facility] Serum glucose measurement (m ass/volume)Ordered By: Omarefealinaernie Hortamalgurdeep on 10-27-2024 Glucose [Mass/Vol] 95 mg/dL 70-99 [facility] Serum or plasma calcium lisa urement (mass/volume)Ordered By: Omarefeyessy Mychalmalgurdeep on 10-27-2024 Calcium [Mass/Vol] 9.3 mg/dL 7.6-11.0 [facility] Serum or plasma urea nitroge n measurement (mass/volume)Ordered By: Omarderrell Hortamalgurdeep on 10-27-2024 Urea nitrogen [Mass/Vol] 32 mg/dL High 4-19 [facility] Sodium levelOrdered By: Erasmo monetflash Cl on 10-27-2024 Sodium [Moles/Vol] 138 mmol/L 133-145 [facility] White blood cell (WBC) count Ordered By: Chau Smallwood on 10-27-2024 WBC (Bld) [#/Vol] 7.5 10*3/uL 4.4-11.0 [facility] Anion gap in Serum or Plasma Ordered By: Chau Smallwood on 10-02-2024 Anion gap [Moles/Vol] 11 mmol/L 5-15 [facility] BUN/creatinine ratioOrdered By: Chau Smallwood on 10-02-2024 Urea nitrogen/Creatinine [Mass ratio] 19.5 mg/mg 10- [facility] Carbon dioxide, total [Moles /volume] in Central venous bloodOrdered By: Chau Smallwood on 10-02-2024 CO2 [Moles/Vol] 24.2 mmol/L 21.0-32.0 [facility] Chloride assayOrdered By: Omar Smallwood on 10-02-2024 Chloride [Moles/Vol] 102 mmol/L 98-108 [facility] Glomerular filtration rate ( GFR) estimation/1.73 sq m using serum, plasma, or whole bOrdered By: Chau Smallwood on 10-02-2024 GFR/1.73 sq M.predicted among non-blacks MDRD (S/P/Bld) [Vol rate/Area] 59 mL/min/{1.73_m2} Low >60 [facility] Comment on above: mL/min/1.73m2 CKD-EP I Creatinine Equation (2020) Potassium measurement (mass/ volume)Ordered By: Chau Smallwood on 10-02-2024 Potassium (Unsp spec) [Mass/Vol] 4.8 mmol/L 3.3-5.1 [facility] Serum creatinine measurement (mass/volume)Ordered By: Chau Smallwood on 10-02-2024 Creatinine [Mass/Vol] 1.22 mg/dL High 0.70-1.20 [facility] Serum glucose measurement (m ass/volume)Ordered By: Chau Smallwood on 10-02-2024 Glucose [Mass/Vol] 119 mg/dL High 70-99 [facility] Serum or plasma calcium lisa urement (mass/volume)Ordered By: Omarefealinaernie Hortamalgurdeep on 10-02-2024 Calcium [Mass/Vol] 9.5 mg/dL 7.6-11.0 [facility] Serum or plasma urea nitroge n measurement (mass/volume)Ordered By: Chau Hortamalgurdeep on 10-02-2024 Urea nitrogen [Mass/Vol] 24 mg/dL High 4-19 [facility] Sodium levelOrdered By: Erasmo krishnamurthy Mychalmalgurdeep on 10-02-2024 Sodium [Moles/Vol] 137 mmol/L 133-145 [facility] Absolute lymphocyte countOrd ered By: Omarefealinaernie Hortamalgurdeep on 08-22-2024 Lymphocytes Auto (Unsp spec) [#/Vol] 2.18 10*3/uL 0.83-4.51 [facility] Absolute neutrophil countOrd ered By: Omarderrell Hortamalgurdeep on 08-22-2024 Neutrophils (Bld) [#/Vol] 3.9 10*3/uL 2.0-7.7 [facility] Anion gap in Serum or Plasma Ordered By: Chau Hortamalgurdeep on 08-22-2024 Anion gap [Moles/Vol] 11 mmol/L 5-15 [facility] Automated lymphocyte count a s percentage of total leukocytesOrdered By: Chau Smallwood on 08-22-2024 Lymphocytes/100 WBC Auto (Unsp spec) 31.1 % 19-41 [facility] BUN/creatinine ratioOrdered By: Chau Hortamalgurdeep on 08-22-2024 Urea nitrogen/Creatinine [Mass ratio] 23.3 mg/mg High 10-20 [facility] Basophil percentageOrdered B y: Omraefealinaernie Hortamalgurdeep on 08-22-2024 Basophils/100 WBC (Bld) 0.6 % 0-1 [facility] Bilirubin, totalOrdered By: Omarderrell Hortamalgurdeep on 08-22-2024 Bilirubin [Mass/Vol] 0.42 mg/dL 0.00-1.30 [facility] Calculated very low density lipoprotein (VLDL) cholesterol measurementOrdered By: Chau Smallwood on 08-22-2024 Calculated very low density lipoprotein (VLDL) cholesterol measurement 11 mg/dL 5-40 [facility] Carbon dioxide, total [Moles /volume] in Central venous bloodOrdered By: Chau Smallwood on 08-22-2024 CO2 [Moles/Vol] 25.7 mmol/L 21.0-32.0 [facility] Chloride assayOrdered By: Omar Smallwood on 08-22-2024 Chloride [Moles/Vol] 99 mmol/L 98-108 [facility] Eosinophil percentageOrdered By: Chau Smallwood on 08-22-2024 Eosinophils/100 WBC (Bld) 2.0 % 0-5 [facility] Erythrocyte distribution wid th ratioOrdered By: Chau Smallwood on 08-22-2024 Erythrocyte distribution width (RBC) [Ratio] 13.0 % 11.6-14.6 [facility] Erythrocyte distribution wid th standard deviationOrdered By: Chau Smallwood on 08-22-2024 Erythrocyte distribution width (RBC) [Ratio] 43.0 fl 35.1-43.9 [facility] Glomerular filtration rate ( GFR) estimation/1.73 sq m using serum, plasma, or whole bOrdered By: Chau Smallwood on 08-22-2024 GFR/1.73 sq M.predicted among non-blacks MDRD (S/P/Bld) [Vol rate/Area] 52 mL/min/{1.73_m2} Low >60 [facility] Comment on above: mL/min/1.73m2 CKD-EP I Creatinine Equation (2020) Hematocrit Auto (Bld) [Volum e fraction]Ordered By: Chau Smallwood on 08-22-2024 Hematocrit (Bld) [Volume fraction] 41.0 % 40-54 [facility] Hemoglobin A1c percentageOrd ered By: Chau Smallwood on 08-22-2024 HbA1c (Bld) [Mass fraction] 6.5 % High <5.7 [facility] Comment on above: Normal < 5.7 % Predi abetic 5.7 - 6.4 % Diabetic >or= 6.5 % Please note range changes. Hemoglobin measurementOrdere d By: Chau Smallwood on 08-22-2024 Hemoglobin (Bld) [Mass/Vol] 13.7 g/dL 13.0-16.5 [facility] Immature granulocytes/100 WB C Auto (Bld)Ordered By: Chau Smallwood on 08-22-2024 Immature granulocytes/100 WBC (Bld) 0.300 % 0.0-0.9 [facility] Comment on above: IG% - Immature Granu locytes (promyelocytes, myelocytes and metamyelocytes) > 1% indicates that a LEFT SHIFT is Present. LDL calc ser/plasOrdered By: Chau Smallwood on 08-22-2024 Cholesterol in LDL [Mass/Vol] 42 mg/dL [facility] Comment on above: Sitpejmolv=102-553 m g/dL & Higher Lmne=014 mg/dL or greater Laboratory - Chemistry and C hemistry - challengeOrdered By: Chau Smallwood on 08-22-2024 AST [Catalytic activity/Vol] 20 U/L <38 [facility] MCV (mean corpuscular volume ) determinationOrdered By: Chau Smallwood on 08-22-2024 MCV (RBC) [Entitic vol] 89.9 fL 80-94 [facility] Mean corpuscular hemoglobin (MCH) determinationOrdered By: Erasmoeldenaernie Smallwood on 08-22-2024 MCH (RBC) [Entitic mass] 30.0 pg 27.0-32.0 [facility] Mean corpuscular hemoglobin concentration (MCHC) determinationOrdered By: Chau Smallwood on 08-22-2024 MCHC (RBC) [Mass/Vol] 33.4 g/dL 32-36 [facility] Mean platelet volume determi nationOrdered By: Chau Smallwood on 08-22-2024 Platelet mean volume (Bld) [Entitic vol] 9.7 fL 6.2-12.0 [facility] Monocyte percentageOrdered B y: Chau Smallwood on 08-22-2024 Monocytes/100 WBC (Bld) 10.3 % High 0-10 [facility] Neutrophil percentageOrdered By: Chau Smallwood on 08-22-2024 Neutrophils/100 WBC (Bld) 55.7 % 47-70 [facility] Nucleated red blood cell per centageOrdered By: Chau Smallwood on 08-22-2024 Nucleated RBC/100 WBC (Bld) [Ratio] 0 % 0-5 [facility] Platelet countOrdered By: Omar Smallwood on 08-22-2024 Platelets (Bld) [#/Vol] 180 10*3/uL 150-450 [facility] Potassium measurement (mass/ volume)Ordered By: Chau Smallwood on 08-22-2024 Potassium (Unsp spec) [Mass/Vol] 4.5 mmol/L 3.3-5.1 [facility] RBC Auto (Bld) [#/Vol]Ordere d By: Chau Smallwood on 08-22-2024 RBC (Bld) [#/Vol] 4.56 10*6/uL Low 4.6-6.2 [facility] Screening total cholesterol/ high density lipoprotein (HDL) cholesterol ratioOrdered By: Chau Smallwood on 08-22-2024 Cholesterol.total/Cho lesterol in HDL [Mass ratio] 1.90 {ratio} [facility] Serum creatinine measurement (mass/volume)Ordered By: Chau Smallwood on 08-22-2024 Creatinine [Mass/Vol] 1.35 mg/dL High 0.70-1.20 [facility] Serum globulin measurementOr dered By: Chau Smallwood on 08-22-2024 Globulin (S) [Mass/Vol] 2.5 g/dL 2.2-4.2 [facility] Serum glucose measurement (m ass/volume)Ordered By: Chau Smallwood on 08-22-2024 Glucose [Mass/Vol] 117 mg/dL High 70-99 [facility] Serum or plasma alanine yepez otransferase (ALT) measurementOrdered By: Chau Smallwood on 08-22-2024 ALT [Catalytic activity/Vol] 13 U/L <47 [facility] Serum or plasma albumin lisa urement (mass/volume)Ordered By: Chau Smallwood on 08-22-2024 Albumin [Mass/Vol] 4.2 g/dL 3.4-4.8 [facility] Serum or plasma albumin/glob ulin mass ratioOrdered By: ernie Shepard on 08-22-2024 Albumin/Globulin [Mass ratio] 1.7 {ratio} 0.9-2.4 [facility] Serum or plasma alkaline donavan sphatase measurementOrdered By: yessy Smallwood 08-22-2024 ALP [Catalytic activity/Vol] 91 U/L 40-129 [facility] Serum or plasma calcium lisa urement (mass/volume)Ordered By: Chau Smallwood 08-22-2024 Calcium [Mass/Vol] 9.7 mg/dL 7.6-11.0 [facility] Serum or plasma cholesterol in HDL measurement (mass/volume)Ordered By: Chau Smallwood 08-22-2024 Cholesterol in HDL [Mass/Vol] 59 mg/dL >40 [facility] Comment on above: National Cholesterol Education Program (NCEP) guidelines:<40 mg/dL: Low HDL-cholesterol (major risk factor for CHD)>= 60 mg/dL: High HDL-cholesterol (negative risk factor for CHD)HDL-cholesterol is affected by a number of factors, e.g. smoking, exercise, hormones, sex and age. Serum or plasma cholesterol measurement (mass/volume)Ordered By: Chau Smallwood 08-22-2024 Cholesterol [Mass/Vol] 112 mg/dL <201 [facility] Comment on above: Cholesterol level, D esirable <200 mg/dLBorderline high cholesterol 200-239 mg/dLHigh cholesterol >=240 mg/dLRecommendations of the NCEP Adult Treatment Panel for the following risk-cutoff thresholds for the [place] population. Serum or plasma urea nitroge n measurement (mass/volume)Ordered By: Chau Smallwood 08-22-2024 Urea nitrogen [Mass/Vol] 32 mg/dL High 4-19 [facility] Sodium levelOrdered By: Erasmo monetflash Cl 08-22-2024 Sodium [Moles/Vol] 136 mmol/L 133-145 [facility] Total proteinOrdered By: Samgurdeep lai Cl on 08-22-2024 Protein [Mass/Vol] 6.7 g/dL 5.9-8.4 [facility] Triglycerides measurementOrd ered By: Sabihaernie Hortamalgurdeep on 08-22-2024 Triglyceride [Mass/Vol] 55 mg/dL <199 [facility] Comment on above: The drugs N-Acetylcy steine and Metamizole may falsely depress this assay. Normal range: <150 mg/dLBorderline High: 150-199 mg/dLHigh: 200-499 mg/dLVery High: >500 mg/dL White blood cell (WBC) count Ordered By: Chau Smallwood on 08-22-2024 WBC (Bld) [#/Vol] 7.0 10*3/uL 4.4-11.0 [facility] CBC (INCLUDES DIFF/PLT)on Basophils (Bld) [#/Vol] 0.049 10*3/uL Normal 0-200 [facility] Comment on above: Performed By: #### 9 27, 4099, 26317, 7600, 27891, 18094 #### [facility] [place] [address] [employer]: Nash Ames MD Basophils/100 WBC (Bld) 0.6 % Normal [facility] Comment on above: Performed By: #### 9 27, 6341, 26229, 7600, 75498, [id number] #### [facility] [place] [address] [employer]: Nash Ames MD Eosinophils (Bld) [#/Vol] 0.251 10*3/uL Normal 15-500 [facility] Comment on above: Performed By: #### 9 27, 6399, 86758, 7600, 77823, 61948 #### [facility] [place] [address] [employer]: Nash Ames MD Eosinophils/100 WBC (Bld) 3.1 % Normal [facility] Comment on above: Performed By: #### 9 , 6399, 51414, 7600, 06686, #### [facility] of [address], [address] [place] [address] Supervisor [employer]: Nash Ames MD Erythrocyte distribution width (RBC) [Ratio] 13.0 % Normal 11.0-15.0 [facility] Comment on above: Performed By: #### 9 27, 6399, 40492, 7600, 16772, #### [facility] of [address], [address] [place] [address] Supervisor [employer]: Nash Ames MD Hematocrit (Bld) [Volume fraction] 47.6 % Normal 38.5-50.0 [facility] Comment on above: Performed By: #### 9 27, 6399, 83034, 7600, 73043, #### [facility] of [address], [address] [place] [address] Supervisor [employer]: Nash Ames MD Hemoglobin (Bld) [Mass/Vol] 15.3 g/dL Normal 13.2-17.1 [facility] Diagnostics Comment on above: Performed By: #### 9 27, 6399, 74535, 7600, 90718, #### [facility] [place] [address] Supervisor Waterproofing: Nash Ames MD Lymphocytes (Bld) [#/Vol] 1.855 10*3/uL Normal 850-3900 [facility] Comment on above: Performed By: #### 9 27, 6399, 74121, 7600, 90416, #### [facility] of [address], [address] [place] [address] Supervisor Waterproofing: Nash Ames MD Lymphocytes/100 WBC (Bld) 22.9 % Normal [facility] Comment on above: Performed By: #### 9 27, 6399, 18719, 7600, 52844, #### [facility] [place] [address] Supervisor Waterproofing: Nash Ames MD MCH (RBC) [Entitic mass] 30.1 pg Normal 27.0-33.0 [facility] Comment on above: Performed By: #### 9 , 63, 22640, 7600, 47599, #### [facility] [address], [address] [place] [address] Supervisor Waterproofing: Nash Ames MD MCHC (RBC) [Mass/Vol] 32.1 g/dL Normal 32.0-36.[address] [facility] Comment on above: Result Comment: For adults, a slight decrease in the calculated MCHC value (in the range of 30 to 32 g/dL) is most likely not clinically significant; however, it should be interpreted with caution in correlation with other red cell parameters and the patient's clinical condition. Performed By: #### 9 , 63, 91811, 7600, 20555, #### [facility] [place] [address] Supervisor Waterproofing: Nash Ames MD MCV (RBC) [Entitic vol] 93.5 fL Normal 80.0-100.0 [facility] Comment on above: Performed By: #### 9 , 63, 91416, 7600, 49739, #### [facility] [place] [address] Supervisor Waterproofing: Nash Ames MD Monocytes (Bld) [#/Vol] 0.826 10*3/uL Normal 200-950 [facility] Comment on above: Performed By: #### 9 , 63, 79747, 7600, 92495, #### [facility] [place] [address] Supervisor Waterproofing: Nash Ames MD Monocytes/100 WBC (Bld) 10.2 % Normal [facility] Comment on above: Performed By: #### 9 , 63, 29961, 7600, 74634, #### [facility] [place] [address] Supervisor Waterproofing: Nash Ames MD Neutrophils (Bld) [#/Vol] 5.119 10*3/uL Normal 3310-3096 [facility] Comment on above: Performed By: #### 9 27, 6399, 41665, 7600, 18995, #### [facility] [place] [address] Supervisor Waterproofing: Nash Ames MD Neutrophils/100 WBC (Bld) 63.2 % Normal [facility] Comment on above: Performed By: #### 9 27, 6399, 44520, 7600, 00644, #### [facility] [place] [address] Supervisor Waterproofing: Nash Ames MD Platelet mean volume (Bld) [Entitic vol] 9.7 fL Normal 7.5-12.5 [facility] Comment on above: Performed By: #### 9 27, 63, 77163, 7600, 82619, #### [facility] [place] [address] Supervisor Waterproofing: Nash Ames MD Platelets (Bld) [#/Vol] 180 10*3/uL Normal 140-400 [facility] Comment on above: Performed By: #### 9 27, 63, 19460, 7600, 82168, #### [facility] [place] [address] Supervisor Waterproofing: Nash Ames MD RBC (Bld) [#/Vol] 5.09 10*6/uL Normal 4.20-5.80 [facility] Comment on above: Performed By: #### 9 27, 63, 60479, 7600, 69839, #### [facility] [place] [address] Supervisor Waterproofing: Nash Ames MD WBC (Bld) [#/Vol] 8.1 10*3/uL Normal 3.8-10.8 [facility] Comment on above: Performed By: #### 9 , 6399, 19754, 7600, 33049, #### [facility] [place] [address] Supervisor Waterproofing: Nash Ames MD COMPREHENSIVE METABOLIC PANE L W/ANION GAPon 07-16-2024 Albumin [Mass/Vol] 4.5 g/dL Normal 3.6-5.1 [facility] Comment on above: Performed By: #### 9 27, 6399, 57969, 7600, 75887, #### [facility] [place] [address] Supervisor Waterproofing: Nash Ames MD ALP [Catalytic activity/Vol] 70 U/L Normal 35-144 [facility] Comment on above: Performed By: #### 9 27, 6399, 42801, 7600, 37044, #### [facility] [place] [address] Supervisor Waterproofing: Nash Ames MD ALT [Catalytic activity/Vol] 14 U/L Normal 9-46 [facility] Comment on above: Performed By: #### 9 27, 6399, 97846, 7600, 33628, #### [facility] [place] [address] Supervisor Waterproofing: Nash Ames MD AST [Catalytic activity/Vol] 16 U/L Normal 10-35 [facility] Comment on above: Performed By: #### 9 27, 63, 73517, 7600, 75027, #### [facility] [place] [address] Supervisor Waterproofing: Nash Ames MD Bilirubin [Mass/Vol] 0.7 mg/dL Normal 0.2-1.2 [facility] Comment on above: Performed By: #### 9 27, 6399, 86681, 7600, 60382, 68010 #### [facility] [place] [address] Supervisor Waterproofing: Nash Ames MD Calcium [Mass/Vol] 9.8 mg/dL Normal 8.6-10.3 [facility] Comment on above: Performed By: #### 9 27, 63, 53416, 7600, 09781, #### [facility] [place] [address] Supervisor Waterproofing: Nash Ames MD Chloride [Moles/Vol] 98 mmol/L Normal 98-110 [facility] Comment on above: Performed By: #### 9 27, 63, 35586, 7600, 05005, #### [facility] [place] [address] Supervisor Waterproofing: Nash Ames MD CO2 [Moles/Vol] 30 mmol/L Normal 20-32 [facility] Comment on above: Performed By: #### 9 , 63, 70063, 7600, , #### [facility] [place] [address] Supervisor Waterproofing: aNsh Ames MD Creatinine [Mass/Vol] 1.18 mg/dL Normal 0.70-1.[address] [facility] Comment on above: Performed By: #### 9 27, 63, 39359, 7600, 35046, #### [facility] [place] [address] Supervisor Waterproofing: Nash Ames MD ELECTROLYTE BALANCE 8 mmol/L (calc) Normal 7-17 [facility] Comment on above: Performed By: #### 9 27, 63, 75210, 7600, 73759, #### [facility] [place] [address] Supervisor Waterproofing: Nash Ames MD GFR/1.73 sq M.predicted among non-blacks MDRD (S/P/Bld) [Vol rate/Area] 62 mL/min/{1.73_m2} Normal > OR = 60 [facility] Comment on above: Performed By: #### 9 , 63, 18344, 7600, 50630, #### [facility] [address], [address] [place] [address] Supervisor Waterproofing: Nash Ames MD Glucose [Mass/Vol] 97 mg/dL Normal 65-99 [facility] Comment on above: Result Comment: Fasting reference interval Performed By: #### 9 27, 6399, 62330, 7600, 64437, 12120 #### [facility] [address], [address] [place] [address] Supervisor Waterproofing: Nash Ames MD Potassium [Moles/Vol] 4.8 mmol/L Normal 3.5-5.[address] [facility] [address] [facility] Comment on above: Performed By: #### 9 27, 6399, 60854, 7600, 01185, #### [facility] [place] [address] Supervisor Waterproofing: Nash Ames MD Protein [Mass/Vol] 7.1 g/dL Normal 6.1-8.1 [facility] Comment on above: Performed By: #### 9 27, 6399, 14845, 7600, 87079, 72390 #### [facility] [place] [address] Supervisor Waterproofing: Nash Ames MD Sodium [Moles/Vol] 136 mmol/L Normal 135-146 [facility] Comment on above: Performed By: #### 9 27, 6399, 88331, 7600, 67710, #### [facility] [place] [address] Supervisor Waterproofing: Nash Ames MD Urea nitrogen [Mass/Vol] 23 mg/dL Normal 7-25 [facility] Comment on above: Performed By: #### 9 27, 6399, 64051, 7600, 65231, 33903 #### [facility] [place] [address] Supervisor Waterproofing: Nash Ames MD HEMOGLOBIN A1c WITH eAGon eAG (mmol/L) 7.4 mmol/L Normal [facility] Comment on above: Performed By: #### 9 27, 6399, 61181, 7600, 29589, 02440 #### [facility] [place] [address] Supervisor Waterproofing: Nash Ames MD HbA1c (Bld) [Mass fraction] [...] children. Performed By: #### 9 27, 6399, 46126, 7600, 33714, #### [facility] [address], [address] [place] [address] Supervisor Waterproofing: Nash Ames MD Magnesium [Mass/Vol] 134 mg/dL Normal [facility] Comment on above: Performed By: #### 9 27, 6399, 92245, 7600, 08771, 41243 #### [facility] [place] [address] Supervisor Waterproofing: Nash Ames MD LIPID PANEL, [facility] 05 Cholesterol [Mass/Vol] 126 mg/dL Normal <200 [facility] Comment on above: Order Comment: FASTI NG:YES FASTING: YES Performed By: #### 9 27, 6399, 52113, 7600, 60159, 21866 #### [facility] [place] [address] Supervisor Waterproofing: Nash Ames MD Cholesterol in HDL [Mass/Vol] 62 mg/dL Normal > OR = 40 [facility] Comment on above: Order Comment: FASTI NG:YES FASTING: YES Performed By: #### 9 27, 6399, 81320, 7600, 48911, 48317 #### [facility] [address], [address] [place] [address] Supervisor Waterproofing: Nash Ames MD Cholesterol in LDL [Mass/Vol] [...] LDL-C. Timothy SS et al. VIRGILIO. 2013;310(19): 2433-1356 (http://education.Tvoop/faq/YLN908) Performed By: #### 9 27, 6399, 45618, 7600, 32757, 47375 #### [facility] [address], [address] [place] [address] Supervisor Waterproofing: Nash Ames MD Cholesterol.total/Cho lesterol in HDL [Mass ratio] 2.0 {ratio} Normal <5.0 [facility] Comment on above: Order Comment: FASTI NG:YES FASTING: YES Performed By: #### 9 27, 6399, 13754, 7600, 80075, 44240 #### [facility] [address], [address] [place] [address] Supervisor Waterproofing: Nash Ames MD NON HDL CHOLESTEROL 64 mg/dL (calc) Normal <130 [facility] Comment on above: Order Comment: FASTI NG:YES FASTING: YES Result Comment: For patients with diabetes plus 1 major ASCVD risk factor, treating to a non-HDL-C goal of <100 mg/dL (LDL-C of <70 mg/dL) is considered a therapeutic option. Performed By: #### 9 27, 6399, 27655, 7600, 37213, 96515 #### [facility] [address], [address] [place] [address] Supervisor Waterproofing: Nash Ames MD Triglyceride [Mass/Vol] 92 mg/dL Normal <150 [facility] Comment on above: Order Comment: FASTI NG:YES FASTING: YES Performed By: #### 9 27, 6399, 75670, 7600, 05462, #### [facility] [address], [address] [place] [address] Supervisor Waterproofing: Nash Ames MD PSA, TOTAL, MONITORINGon PSA, [...] disease. Performed By: #### 9 27, 6399, 90836, 7600, 12397, #### [facility] [address], [address] [place] [address] Supervisor Waterproofing: Nash Ames MD TSH W/REFLEX TO FT4on 2024 TSH W/REFLEX TO FT4 1.70 mIU/L Normal 0.40-4.50 [facility] Comment on above: Performed By: #### 9 27, 6399, 89060, 7600, 24284, #### [facility] [address], [address] [place] [address] Supervisor Waterproofing: Nash Ames MD VITAMIN B12on 07-16-2024 Cobalamin [...] have symptoms. Performed By: #### 9 27, 7399, 57463, 7600, 75869, 75069 #### [facility] [address] [facility], [address] [place] [address] Supervisor Waterproofing: Nash Ames MD CBC panel Auto (Bld)on 01-19 Erythrocyte distribution width (RBC) [Ratio] 13.4 % Normal 11.5-14.5 [facility] Comment on above: Performed By: #### 5 8410-2 #### CECY WONG (52008) [facility] ([facility]) [address] [place] [address] 74319 Hematocrit (Bld) [Volume fraction] 43.8 % Normal 41.0-52.0 [facility] Comment on above: Performed By: #### 5 8410-2 #### CECY WONG (94737) [facility] ([facility]) [address] [place] [address] 10063 Hemoglobin (Bld) [Mass/Vol] 14.1 g/dL Normal 13.5-17.5 [facility] Comment on above: Performed By: #### 5 8410-2 #### CECY WONG (79073) [facility] ([facility]) [address] [place] [address] 24356 MCH (RBC) [Entitic mass] 29.7 pg Normal 26.0-34.0 [facility] Comment on above: Performed By: #### 5 8410-2 #### CECY WONG (24603) [facility] ([facility]) [address] [place] [address] 63908 MCHC (RBC) [Mass/Vol] 32.2 g/dL Normal 32.0-36.0 [facility] Comment on above: Performed By: #### 5 8410-2 #### CECY WONG (05823) [facility] ([facility]) [address] [place] [address] 57278 MCV (RBC) [Entitic vol] 92 fL Normal 80-100 [facility] Comment on above: Performed By: #### 5 8410-2 #### CECY WONG (46732) [facility] ([facility]) [address] [place] [address] 33518 Nucleated RBC/100 WBC (Bld) [Ratio] 0.0 /100 WBCs Normal 0.0-0.0 [facility] Comment on above: Performed By: #### 5 8410-2 #### CECY WONG (66486) [facility] ([facility]) [address] [place] [address] 82236 Platelets (Bld) [#/Vol] 197 x10*3/uL Normal 150-450 [facility] Comment on above: Performed By: #### 5 8410-2 #### CECY WONG (96198) [facility] ([facility]) [address] [place] [address] 92459 RBC (Bld) [#/Vol] 4.74 x10*6/uL Normal 4.50-5.90 [facility] Comment on above: Performed By: #### 5 8410-2 #### CECY WONG (26039) [facility] ([facility]) [address] [place] [address] 69503 WBC (Bld) [#/Vol] 8.0 x10*3/uL Normal 4.4-11.3 [facility] Comment on above: Performed By: #### 5 8410-2 #### CECY WONG (09695) [facility] ([facility]) [address] [place] [address] 86288 Cobalaminson 01-20-2024 Cobalamin (Vitamin B12) [Mass/Vol] 257 pg/mL Normal 211-911 [facility] Comment on above: Performed By: #### 2 132-9 #### HOLDEN Larson (93305) [facility] ([facility]) [address] [place] [address] Comprehensive metabolic 2000 panelon 01-20-2024 Albumin BCP dye [Mass/Vol] 4.0 g/dL Normal 3.4-5.0 [facility] Comment on above: Performed By: #### 2 432-8 #### CECY WONG (84112) [facility] ([facility]) [address] [place] [address] ALP [Catalytic activity/Vol] 73 U/L Normal 33-136 [facility] Comment on above: Performed By: #### 2 432-8 #### CECY WONG (33522) [facility] ([facility]) [address] [place] [address] ALT With P-5'-P [Catalytic activity/Vol] 11 U/L Normal 10-52 [facility] Comment on above: Result Comment: [place] ents treated with Sulfasalazine may generate falsely decreased results for ALT. Performed By: #### 2 4322-8 #### CECY WONG (93568) [facility] ([facility]) [address] [place] [address] Anion gap [Moles/Vol] 13 mmol/L Normal 10-20 [facility] Comment on above: Performed By: #### 2 4322-8 #### CECY WONG (55467) [facility] ([facility]) [address] [place] [address] AST With P-5'-P [Catalytic activity/Vol] 12 U/L Normal 9-39 [facility] Comment on above: Performed By: #### 2 432-8 #### CECY WONG (43366) [facility] ([facility]) [address] [place] [address] Bilirubin [Mass/Vol] 0.6 mg/dL Normal 0.0-1.2 [facility] Comment on above: Performed By: #### 2 4322-8 #### CECY WONG (19551) [facility] ([facility]) [address] [place] [address] Calcium [Mass/Vol] 9.5 mg/dL Normal 8.6-10.3 [facility] Comment on above: Performed By: #### 2 432-8 #### CECY WONG (06077) [facility] ([facility]) [address] [place] [address] 29[address] Chloride [Moles/Vol] 99 mmol/L Normal 98-107 [facility] Comment on above: Performed By: #### 2 4323-8 #### CECY WONG (47327) [facility] ([facility]) [facility] [place] [address] CO2 [Moles/Vol] 29 mmol/L Normal 21-32 [facility] Comment on above: Performed By: #### 2 4323-8 #### CECY WONG (75197) [facility] ([facility]) [address] [place] [address] 74370 Creatinine [Mass/Vol] 1.46 mg/dL High 0.50-1.30 [facility] Comment on above: Performed By: #### 2 4323-8 #### CECY WONG (35610) [facility] ([facility]) [address] [place] [address] 50100 Glomerular filtration rate/1.73 sq M.predicted 48 mL/min/1.73m*2 Low >60 [facility] Comment on above: Result Comment: Calc ulations of estimated GFR are performed using the 2020 CKD-EPI Study Refit equation without the race variable for the IDMS-Traceable creatinine methods. https://jasn.asnjournals.org/content/early//ASN.485086 5012 Performed By: #### 2 4323-8 #### CECY WONG (97617) [facility] ([facility]) [address] [place] [address] 62988 Glucose [Mass/Vol] 100 mg/dL High 74-99 [facility] Comment on above: Performed By: #### 2 4323-8 #### CECY WONG (83233) [facility] ([facility]) [address] [place] [address] 77742 Potassium [Moles/Vol] 5.0 mmol/L Normal 3.5-5.3 [facility] Comment on above: Performed By: #### 2 4323-8 #### CECY WONG (96377) [facility] ([facility]) [address] [place] [address] Protein [Mass/Vol] 6.4 g/dL Normal 6.4-8.2 [facility] Comment on above: Performed By: #### 2 4323-8 #### CECY WONG (84958) [facility] ([facility]) [address] [place] [address] Sodium [Moles/Vol] 136 mmol/L Normal 136-145 [facility] Comment on above: Performed By: #### 2 4323-8 #### CECY WONG (73313) [facility] ([facility]) [address] [place] [address] 29879 Urea nitrogen [Mass/Vol] 37 mg/dL High 6-23 [facility] Comment on above: Performed By: #### 2 4323-8 #### CECY WONG (92114) [facility] ([facility]) [address] [place] [address] 64836 HbA1c (Bld) [Mass fraction]o n 01-20-2024 Average glucose Estimated from glycated hemoglobin (Bld) [Mass/Vol] 131 mg/dL Normal Not Established [facility] Comment on above: Order Comment: Diagn osis of Diabetes-Adults Non-Diabetic: < or = 5.6% Increased risk for developing diabetes: 5.7-6.4% Diagnostic of diabetes: > or = 6.5% Performed By: #### 4 548-4 #### HOLDEN Larson (82119) [facility] ([facility]) [address] [place] [address] Hemoglobin A1c/Hemoglobin.to myles 01-20-2024 HbA1c (Bld) [Mass fraction] 6.2 % High See comment [facility] Comment on above: Order Comment: Diagn osis of Diabetes-Adults Non-Diabetic: < or = 5.6% Increased risk for developing diabetes: 5.7-6.4% Diagnostic of diabetes: > or = 6.5% Performed By: #### 4 548-4 #### HOLDEN Larson (32169) [facility] ([facility]) [address] [place], [place] [address] Lipid 1996 panelon 4 Cholesterol [Mass/Vol] 109 mg/dL Normal 0-199 [facility] Comment on above: Result Comment: Age [...] By: #### 2 4331-1 #### CECY WONG (75108) [facility] ([facility]) [address] [place] [address] 16990 Cholesterol in HDL [Mass/Vol] 46.0 mg/dL Normal [facility] Comment on above: Result Comment: Age Very Low Low Normal High 0-19 Y < 35 < 40 40-45 ---- 20-24 Y ---- < 40 >45 ---- >24 Y ---- < 40 40-60 >60 Performed By: #### 2 4331-1 #### CECY WONG (55251) [facility] ([facility]) [address] [place] [address] 94744 Cholesterol in LDL [Mass/Vol] 42 mg/dL Normal <=99 [facility] Comment on above: Result Comment: Near Borderline AGE Desirable Optimal High High Very High 0-19 Y 0 - 109 --- 110-129 >/= 130 ---- 20-24 Y 0 - 119 --- 120-159 >/= 160 ---- >24 Y 0 - 99 100-129 130-159 160-189 >/=190 Performed By: #### 2 4331-1 #### CECY WONG (46002) [facility] ([facility]) [address] [place] [address] 89972 Cholesterol in VLDL [Mass/Vol] 21 mg/dL Normal 0-40 [facility] Comment on above: Performed By: #### 2 4331-1 #### CECY WONG (36965) [facility] ([facility]) [address] [place] [address] 01179 CHOLESTEROL/HDL RATIO 2.4 Normal Uni [facility] Comment on above: Result Comment: Ref Values Desirable < 3.4 High Risk > 5.0 Performed By: #### 2 4331-1 #### CECY WONG (51620) [facility] ([facility]) [address] [place] [address] 58757 NON HDL CHOLESTEROL 63 mg/dL Normal 0-149 [facility] Comment on above: Result Comment: Age Desirable Borderline High High Very High 0-19 Y 0 - 119 120 - 144 >/= 145 >/= 160 20-24 Y 0 - 149 150 - 189 >/= 190 ---- >24 Y 30 mg/dL above LDL Cholesterol goal Performed By: #### 2 4331-1 #### CECY WONG (11224) [facility] ([facility]) [address] [place] [address] 31539 Triglyceride [Mass/Vol] 106 mg/dL Normal 0-149 [facility] Comment on above: Result Comment: Age [...] By: #### 2 4331-1 #### CECY WONG (32021) [facility] ([facility]) [address] [place] [address] 44694 Prostate specific Agon 01-19 Prostate specific Ag [Mass/Vol] ng/mL Normal <=4.00 [facility] Comment on above: Order Comment: The F DA requires that the method used for PSA assay be reported to the physician. Values obtained with different assay methods must not be used interchangeably. This test was performed at [facility] using the [employer] PSA assay is a two-site immunoenzymatic sandwich assay. The assay is approved for measurement of prostate-specific antigen (PSA)in serum and may be used in conjunction with a digital rectal examination in men 50 years and older as an aid in detection of prostate cancer. 0-Mibwh-pdaesdnmm inhibitors (e.g. Proscar, Finasteride, Avodart, Dutasteride and Yessica) for the treatment of BPH have been shown to lower PSA levels by an average of 50% after 6 months of treatment. Performed By: #### 2 857-1 #### HOLDEN Larson (03624) [facility] ([facility]) [address] [place] [address] Comprehensive metabolic 2000 panelon 07-03-2023 Albumin BCP dye [Mass/Vol] 3.9 g/dL Normal 3.4-5.0 [facility] Comment on above: Performed By: #### 2 4323-8 #### CECY WONG (13991) [facility] ([facility]) [address] [place] [address] 79055 ALP [Catalytic activity/Vol] 62 U/L Normal 33-136 [facility] Comment on above: Performed By: #### 2 4323-8 #### CECY WONG (77403) [facility] ([facility]) [address] [place] [address] 41914 ALT With P-5'-P [Catalytic activity/Vol] 11 U/L Normal 10-52 [facility] Comment on above: Result Comment: [place] ents treated with Sulfasalazine may generate falsely decreased results for ALT. Performed By: #### 2 4323-8 #### CECY WNOG (07509) [facility] ([facility]) [address] [place] [address] 62525 Anion gap [Moles/Vol] 12 mmol/L Normal 10-20 [facility] Comment on above: Performed By: #### 2 4323-8 #### CECY WONG (10889) [facility] ([facility]) [address] [place] [address] 28571 AST With P-5'-P [Catalytic activity/Vol] 13 U/L Normal 9-39 [facility] Comment on above: Performed By: #### 2 4323-8 #### CECY WONG (04126) [facility] ([facility]) [address] [place] [address] 71925 Bilirubin [Mass/Vol] 0.5 mg/dL Normal 0.0-1.2 [facility] Comment on above: Performed By: #### 2 4322-8 #### CECY WONG (57827) [facility] ([facility]) [address] [place] [address] 13604 Calcium [Mass/Vol] 9.6 mg/dL Normal 8.6-10.3 [facility] Comment on above: Performed By: #### 2 4322-8 #### CECY WONG (69271) [facility] ([facility]) [address] [place] [address] 43418 Chloride [Moles/Vol] 100 mmol/L Normal 98-107 [facility] Comment on above: Performed By: #### 2 4322-8 #### CECY WONG (45016) [facility] ([facility]) [address] [place] [address] 30416 CO2 [Moles/Vol] 29 mmol/L Normal 21-32 [facility] Comment on above: Performed By: #### 2 4323-8 #### CECY WONG ([id number]) [facility] ([facility]) [address] [place] [address] Creatinine [Mass/Vol] 1.59 mg/dL High 0.50-1.30 [facility] Comment on above: Performed By: #### 2 4323-8 #### CECY WONG ([id number]) [facility] ([facility]) [address] [place] [address] Glomerular filtration rate/1.73 sq M.predicted 43 mL/min/1.73m*2 Low >60 [facility] Comment on above: Result Comment: Calc ulations of estimated GFR are performed using the 2020 CKD-EPI Study Refit equation without the race variable for the IDMS-Traceable creatinine methods. https://jasn.asnjournals.org/content//ASN.219531 0009 Performed By: #### 2 4323-8 #### CECY WONG ([id number]) [facility] ([facility]) [address] [place] [address] Glucose [Mass/Vol] 142 mg/dL High 74-99 [facility] Comment on above: Performed By: #### 2 4323-8 #### CECY WONG ([id number]) [facility] ([facility]) [address] [place] [address] Potassium [Moles/Vol] 4.5 mmol/L Normal 3.5-5.3 [facility] Comment on above: Performed By: #### 2 4323-8 #### CECY WONG ([id number]) [facility] ([facility]) [address] [place] [address]96 Protein [Mass/Vol] 6.2 g/dL Low 6.4-8.2 [facility] Comment on above: Performed By: #### 2 4323-8 #### CECY WONG ([id number]) [facility] ([facility]) [address] [place] [address]35 Sodium [Moles/Vol] 136 mmol/L Normal 136-145 [facility] Comment on above: Performed By: #### 2 4323-8 #### CECY WONG ([id number]) [facility] ([facility]) [address] [place] [address]2769 Urea nitrogen [Mass/Vol] 32 mg/dL High 6-23 [facility] Comment on above: Performed By: #### 2 4323-8 #### CECY WONG ([id number]) [facility] ([facility]) [address] [place] [address] HbA1c (Bld) [Mass fraction]o n 07-03-2023 Average glucose Estimated from glycated hemoglobin (Bld) [Mass/Vol] 134 mg/dL Normal Not Established [facility] Comment on above: Order Comment: Diagn osis of Diabetes-Adults Non-Diabetic: < or = 5.6% Increased risk for developing diabetes: 5.7-6.4% Diagnostic of diabetes: > or = 6.5% Monitoring of Diabetes Age (y)....................... Therapeutic Goal (%) Adults: >18.........................<7.0 Pediatrics: 13-18...................<7.5 Pediatrics: 7-12....................<8.0 Pediatrics: 0-6..................... 7.5-8.5 [employer]. Diabetes Care 33(S1), Mar 2009 Performed By: #### 4 548-4 #### HOLDEN Larson ([id number]) [facility] ([facility]) [address] [place] [address] Hemoglobin A1c/Hemoglobin.to myles 07-03-2023 HbA1c (Bld) [Mass fraction] 6.3 % High see below [facility] Comment on above: Order Comment: Diagn osis of Diabetes-Adults Non-Diabetic: < or = 5.6% Increased risk for developing diabetes: 5.7-6.4% Diagnostic of diabetes: > or = 6.5% Monitoring of Diabetes Age (y)....................... Therapeutic Goal (%) Adults: >18.........................<7.0 Pediatrics: 13-18...................<7.5 Pediatrics: 7-12....................<8.0 Pediatrics: 0-6..................... 7.5-8.5 [employer]. 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) HTN (hypertension) (401.9) (I10) Medication management (V58.69) (Z79.899) Prostate cancer (185) (C61) Orders HTN (hypertension) Comprehensive Metabolic Panel; Status:Active; Requested for:[id number]; Medication management Follow-up visit in 5 Months Outpatient Follow-up Status: Hold For - Scheduling Requested for: [id number] 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 Having some leaking urine that is better on the medication. 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 Eye: Not injected Respiratory: No respiratory distress. Symmetrical chest wall expans (more content not included)... 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,599.69) (N40.1,N13.8) Cervical spondylolysis (756.19) (M43.02) Coronary atherosclerosis of atka coronary artery (414.01) (I25.10) 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, psychotic disturbance, mood disturbance, 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 Normal [facility] COMPREHENSIVE PANELon 2021 Albumin [Mass/Vol] 4.2 g/dL Normal 3.4 - 5.0 [facility] Comment on above: Performed By: #### C MP #### [address] [address] ALP [Catalytic activity/Vol] 53 U/L Normal 33 - 136 [facility] Comment on above: Performed By: #### C MP #### [address] [address] ALT [Catalytic activity/Vol] 12 U/L Normal 10 - 52 [facility] Comment on above: Result Comment: [place] ents treated with Sulfasalazine may generate falsely decreased results for ALT. Performed By: #### C MP #### [address] [address] Anion gap [Moles/Vol] 13 mmol/L Normal 10 - 20 [facility] Comment on above: Performed By: #### C MP #### [address] [address] AST [Catalytic activity/Vol] 14 U/L Normal 9 - 39 [facility] Comment on above: Performed By: #### C MP #### [address] [address] Bilirubin [Mass/Vol] 0.8 mg/dL Normal 0.0 - 1.2 [facility] Comment on above: Performed By: #### C MP #### [address] [address] Calcium [Mass/Vol] 9.5 mg/dL Normal 8.6 - 10.3 [facility] Comment on above: Performed By: #### C MP #### [address] [address] Chloride [Moles/Vol] 98 mmol/L Normal 98 - 107 [facility] Comment on above: Performed By: #### C MP #### [address] [address] Creatinine [Mass/Vol] 0.91 mg/dL Normal 0.50 - 1.30 [facility] Comment on above: Performed By: #### C MP #### [address] [address] GFR/1.73 sq M.predicted among non-blacks MDRD (S/P/Bld) [Vol rate/Area] 85 mL/min/{1.73_m2} Normal >90 [facility] Comment on above: Result Comment: CALC ULATIONS OF ESTIMATED GFR ARE PERFORMED USING THE 2020 CKD-EPI STUDY REFIT EQUATION WITHOUT THE RACE VARIABLE FOR THE IDMS-TRACEABLE CREATININE METHODS. https://jasn.asnjournals.org/content/early//ASN.000119 7115 Performed By: #### C MP #### [address] [address] Glucose [Mass/Vol] 135 mg/dL High 74 - 99 [facility] Comment on above: Performed By: #### C MP #### [address] [address] HCO3 (Bld) [Moles/Vol] 29 mmol/L Normal 21 - 32 [facility] Comment on above: Performed By: #### C MP #### [address] [address] Potassium [Moles/Vol] 4.5 mmol/L Normal 3.5 - 5.3 [facility] Comment on above: Performed By: #### C MP #### [address] [address] Protein [Mass/Vol] 6.8 g/dL Normal 6.4 - 8.2 [facility] Comment on above: Performed By: #### C MP #### [address] [address] Sodium [Moles/Vol] 135 mmol/L Low 136 - 145 [facility] Comment on above: Performed By: #### C MP #### [address] [address] Urea nitrogen [Mass/Vol] 23 mg/dL Normal 6 - 23 [facility] Comment on above: Performed By: #### C MP #### [address] [address] HEMOGLOBIN A1Con 01-10-2022 Glucose [Mass/Vol] 151 mg/dL Normal [facility] Comment on above: Performed By: #### H BA1E #### [address] [address] HbA1c (Bld) [Mass fraction] 6.9 % Abnormal [facility] Comment on above: Result Comment: Diag nosis of Diabetes-Adults Non-Diabetic: < or = 5.6% Increased risk for developing diabetes: 5.7-6.4% Diagnostic of diabetes: > or = 6.5% . Monitoring of Diabetes Age (y) Therapeutic Goal (%) Adults: >18 <7.0 Pediatrics: 13-18 <7.5 7-12 <8.0 0- 6 7.5-8.5 [employer]. Diabetes Care 33(S1), Mar 2009. Performed By: #### H BA1E #### [address] [address] LIPID PANEL (CORONARY RISK 2 )on 01-10-2022 Cholesterol [Mass/Vol] 105 mg/dL Normal 0 - 199 [facility] Comment on above: Result Comment: [...] dosing. Performed By: #### L IPID #### [address] [address] Cholesterol in HDL [Mass/Vol] 40.0 mg/dL Normal [facility] Comment on above: Result Comment: . AGE VERY LOW LOW NORMAL HIGH 0-19 Y < 35 < 40 40-45 ---- 20-24 Y ---- < 40 >45 ---- >24 Y ---- < 40 40-60 >60 . Performed By: #### L IPID #### [address] [address] Cholesterol in LDL [Mass/Vol] 41 mg/dL Normal 0 - 99 [facility] Comment on above: Result Comment: . NEAR BORD AGE DESIRABLE OPTIMAL HIGH HIGH VERY HIGH 0-19 Y 0 - 109 --- 110-129 >/= 130 ---- 20-24 Y 0 - 119 --- 120-159 >/= 160 ---- >24 Y 0 - 99 100-129 130-159 160-189 >/=190 . Performed By: #### L IPID #### [address] [address] Cholesterol in VLDL [Mass/Vol] 24 mg/dL Normal 0 - 40 [facility] Comment on above: Performed By: #### L IPID #### [address] [address] Cholesterol.total/Cho lesterol in HDL [Mass ratio] 2.6 {ratio} Normal [facility] Comment on above: Result Comment: REF VALUES DESIRABLE < 3.4 HIGH RISK > 5.0 Performed By: #### L IPID #### [address] [address] Triglyceride [Mass/Vol] 121 mg/dL Normal 0 - 149 [facility] Comment on above: Result Comment: [...] dosing. Performed By: #### L IPID #### [address] [address] PROSTATE SPECIFIC AGon 01-10 Prostate specific Ag [Mass/Vol] ng/mL Critically low 0.00 - 4.00 [facility] Comment on above: Result Comment: The FDA requires that the method used for PSA assay be reported to the physician. Values obtained with different assay methods must not be used interchangeably. This test was performed at [facility] using the [employer] PSA assay is a two-site immunoenzymatic sandwich assay. The assay is approved for measurement of prostate-specific antigen (PSA)in serum and may be used in conjunction with a digital rectal examination in men 50 years and older as an aid in detection of prostate cancer. 3-Wtzbz-hwxcogxti inhibitors (e.g. Proscar, Finasteride, Avodart, Dutasteride and Yessica) for the treatment of BPH have been shown to lower PSA levels by an average of 50% after 6 months of treatment. Performed By: #### P SA #### [address] [address] TSH WITH REFLEX TO FREE T4 I F ABNORMALon 01-10-2022 TSH Qn 1.29 m[IU]/L Normal 0.44 - 3.98 [facility] Comment on above: Result Comment: TSH testing is performed using different testing methodology at [facility] than at other [facility]. Direct result comparisons should only be made within the same method. Performed By: #### T HYDS #### [address] [address] Absolute lymphocyte counton 12-06-2021 Lymphocytes Auto (Unsp spec) [#/Vol] 2.47 10*3/uL 0.83-4.51 [facility] Work Phone: Basophil percentageon 2021 Basophils/100 WBC (Bld) 0.5 % 0-1 [facility] Work Phone: Chloride [Moles/Vol] 101 mmol/L 98-107 [facility] Work Phone: Eosinophils/100 WBC (Bld) 2.4 % 0-5 [facility] Work Phone: Glucose [Mass/Vol] 128 mg/dL 74-106 [facility] Work Phone: Comment on above: Fasting Glucose resu lt greater than or equal to 126 mg/dL suggests DIABETES MELLITUS per A.D.A. criteria. Neutrophils (Bld) [#/Vol] 3.8 10*3/uL 2.0-7.7 [facility] Work Phone: Neutrophils/100 WBC (Bld) 51.5 % 47-70 [facility] Work Phone: Potassium [Moles/Vol] 3.8 mmol/L 3.5-5.1 [facility] Work Phone: Sodium [Moles/Vol] 138 mmol/L 136-145 [facility] Work Phone: WBC (Bld) [#/Vol] 7.4 10*3/uL 4.4-11.0 [facility] Work Phone: Blood erythrocytes count (nu mber/volume)on 12-06-2021 RBC (Bld) [#/Vol] 5.30 10*6/uL 4.6-6.2 [facility] Work Phone: Blood hemoglobin measurement (mass/volume)on 12-06-2021 Hemoglobin (Bld) [Mass/Vol] 15.9 g/dL 13.0-16.5 [facility] Work Phone: Blood lymphocytes/100 leukoc yteson 12-06-2021 Lymphocytes/100 WBC (Bld) 33.3 % 19-41 [facility] Work Phone: Blood monocytes/100 leukocyt eson 12-06-2021 Monocytes/100 WBC (Bld) 12.0 % 0-10 [facility] Work Phone: [phone] Blood platelet mean volumeon 12-06-2021 Platelet mean volume (Bld) [Entitic vol] 9.6 fL 6.2-12.0 [facility] Work Phone: [phone] Determination of erythrocyte mean corpuscular volume (MCV)on 12-06-2021 MCV (RBC) [Entitic vol] 89.2 fL 80-94 [facility] Work Phone: [phone] Hematocrit Auto (Bld) [Volum e fraction]on 12-06-2021 Hematocrit (Bld) [Volume fraction] 47.3 % 40-54 [facility] Work Phone: Laboratory - Chemistry and C hemistry - challengeon 12-06-2021 CO2 [Moles/Vol] 30.0 mmol/L 21.0-32.0 [facility] Work Phone: [phone] Magnesium [Mass/Vol] 1.4 mg/dL 1.6-2.6 [facility] Work Phone: [phone] Urea nitrogen/Creatinine [Mass ratio] 21.6 mg/mg 10-20 [facility] Work Phone: [phone] Laboratory - Hematology and Cell countson 12-06-2021 Erythrocyte distribution width (RBC) [Entitic vol] 42.6 fL 35.1-43.9 [facility] Work Phone: [phone] Erythrocyte distribution width (RBC) [Ratio] 13.1 % 11.6-14.6 [facility] Work Phone: [phone] Immature granulocytes/100 WBC (Bld) 0.300 % 0.0-0.9 [facility] Work Phone: Comment on above: IG% - Immature Granu locytes (promyelocytes, myelocytes and metamyelocytes) > 1% indicates that a LEFT SHIFT is Present. MCH (RBC) [Entitic mass] 30.0 pg 27.0-32.0 [facility] Work Phone: Nucleated RBC/100 WBC (Bld) [Ratio] 0 % 0-5 [facility] Work Phone: [phone] MCHC Auto (RBC) [Mass/Vol]on 12-06-2021 MCHC (RBC) [Mass/Vol] 33.6 g/dL 32-36 [facility] Work Phone: No Panel Informationon 12-06 Estimated Creatinine Clearance Calc 55.72 ml/min [facility] Work Phone: [phone] Estimated GFR (MDRD) Amer 82 mL/min >60 [facility] Work Phone: [phone] Comment on above: GFR Calc Estimated GFR (MDRD) Non-Af Amer 68 mL/min >60 [facility] Work Phone: [phone] Comment on above: Non- GFR Calc Troponin I High Sensitivity 6 pg/mL 3.0-78.0 [facility] Work Phone: Comment on above: Please Note: New [place]ima t Units and Gender Specific Reference Ranges. For more information see Policy Stat Procedure [place] High Sensitivity Troponin (TNIH) and attachments. Platelets bldon 12-06-2021 Platelets (Bld) [#/Vol] 198 10*3/uL 150-450 [facility] Work Phone: [phone] Serum or plasma calcium lisa urement (mass/volume)on 12-06-2021 Calcium [Mass/Vol] 9.3 mg/dL 8.5-10.1 [facility] Work Phone: [phone] Serum or plasma creatinine m easurement (mass/volume)on 12-06-2021 Creatinine [Mass/Vol] 1.11 mg/dL 0.70-1.30 [facility] Work Phone: Comment on above: The validity of the calculated GFR & GFRAA in patients over 70 years has not been determined. Clinical correlation is essential. 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 Normal [employer] BASIC METABOLIC PANELon 04-3 0-2021 Anion gap [Moles/Vol] 13 mmol/L Normal 10 - 20 [facility] Comment on above: Performed By: #### B MP #### [address] [address] Calcium [Mass/Vol] 9.4 mg/dL Normal 8.6 - 10.3 [facility] Comment on above: Performed By: #### B MP #### [address] [place] [address] Chloride [Moles/Vol] 98 mmol/L Normal 98 - 107 [facility] Comment on above: Performed By: #### B MP #### [address] [address] Creatinine [Mass/Vol] 1.07 mg/dL Normal 0.50 - 1.30 [facility] Comment on above: Performed By: #### B MP #### [address] [address] GFR/1.73 sq M.predicted among non-blacks MDRD (S/P/Bld) [Vol rate/Area] 70 mL/min/{1.73_m2} Normal >90 [facility] Comment on above: Result Comment: CALC ULATIONS OF ESTIMATED GFR ARE PERFORMED USING THE 2020 CKD-EPI STUDY REFIT EQUATION WITHOUT THE RACE VARIABLE FOR THE IDMS-TRACEABLE CREATININE METHODS. https://jasn.asnjournals.org/content/early//ASN.346040 6846 Performed By: #### B MP #### [address] [address] Glucose [Mass/Vol] 143 mg/dL High 74 - 99 [facility] Comment on above: Performed By: #### B MP #### [address] [address] HCO3 (Bld) [Moles/Vol] 29 mmol/L Normal 21 - 32 [facility] Comment on above: Performed By: #### B MP #### [address] [address] Potassium [Moles/Vol] 4.7 mmol/L Normal 3.5 - 5.3 [facility] Comment on above: Performed By: #### B MP #### [address] [address] Sodium [Moles/Vol] 135 mmol/L Low 136 - 145 [facility] Comment on above: Performed By: #### B MP #### [address] [address] Urea nitrogen [Mass/Vol] 25 mg/dL High 6 - 23 [facility] Comment on above: Performed By: #### B MP #### [address] [address] HEMOGLOBIN A1Con 07-05-2021 Glucose [Mass/Vol] 157 mg/dL Normal [facility] Comment on above: Performed By: #### H BA1E #### [address] [address] HbA1c (Bld) [Mass fraction] 7.1 % Abnormal [facility] Comment on above: Result Comment: Diag nosis of Diabetes-Adults Non-Diabetic: < or = 5.6% Increased risk for developing diabetes: 5.7-6.4% Diagnostic of diabetes: > or = 6.5% . Monitoring of Diabetes Age (y) Therapeutic Goal (%) Adults: >18 <7.0 Pediatrics: 13-18 <7.5 7-12 <8.0 0- 6 7.5-8.5 [employer]. Diabetes Care 33(S1), Mar 2009. Performed By: #### H BA1E #### [address] [address] Hemoglobin A1Con 07-05-2021 Glucose [Mass/Vol] 157 mg/dL [facility] Work Phone: HbA1c (Bld) [Mass fraction] 7.1 % Abnormal [facility] Work Phone: Comment on above: Diagnosis of Diabete s-Adults Non-Diabetic: < or = 5.6% Increased risk for developing diabetes: 5.7-6.4% Diagnostic of diabetes: > or = 6.5%. Monitoring of Diabetes Age (y) Therapeutic Goal (%) Adults: >18 <7.0 Pediatrics: 13-18 <7.5 7-12 <8.0 0- 6 7.5-8.5 [employer]. Diabetes Care 33(S1), Mar 2009. Laboratory - Chemistry and C hemistry - challengeon 07-05-2021 Anion gap [Moles/Vol] 13 mmol/L 10 - 20 [facility] Work Phone: Calcium [Mass/Vol] 9.4 mg/dL 8.6 - 10.3 [facility] Work Phone: Chloride [Moles/Vol] 98 mmol/L 98 - 107 [facility] Work Phone: CO2 [Moles/Vol] 29 mmol/L 21 - 32 [facility] Work Phone: Creatinine [Mass/Vol] 1.07 mg/dL See Below [facility] Work Phone: Comment on above: Reference Range: 0.5 0 - 1.30 Glucose [Mass/Vol] 143 mg/dL above high threshold 74 - 99 [facility] Work Phone: Potassium [Moles/Vol] 4.7 mmol/L 3.5 - 5.3 [facility] Work Phone: Sodium [Moles/Vol] 135 mmol/L below low threshold 136 - 145 [facility] Work Phone: Urea nitrogen [Mass/Vol] 25 mg/dL above high threshold 6 - 23 [facility] Work Phone: No Panel Informationon 07-05 70 {mL/min/1.73m2} >90 [facility] Work Phone: Comment on above: CALCULATIONS OF JORGE MATED GFR ARE PERFORMED USING THE 2020 CKD-EPI STUDY REFIT EQUATION WITHOUT THE RACE VARIABLE FOR THE IDMS-TRACEABLE CREATININE METHODS.https://jasn.asnjournals.org/content/early// N.5397327264 VITAMIN B12on 07-05-2021 Cobalamin (Vitamin B12) [Mass/Vol] 278 pg/mL Normal 211 - 911 [facility] Comment on above: Performed By: #### V TB12 #### [facility] [address] [place] [address] Vitamin B12, Serumon 022 Cobalamin (Vitamin B12) [Mass/Vol] 278 pg/mL 211 - 911 [facility] Work Phone: Tobacco Screening.on 021 Fall risk assessment a) No falls within the last year [facility] Work Phone: Tobacco use status [facility] b) No [facility] Work Phone: Hemoglobin A1Con 12-28-2020 Glucose [Mass/Vol] 160 mg/dL [facility] Work Phone: HbA1c (Bld) [Mass fraction] 7.2 % Abnormal [facility] Work Phone: Comment on above: Diagnosis of Diabete s-Adults Non-Diabetic: < or = 5.6% Increased risk for developing diabetes: 5.7-6.4% Diagnostic of diabetes: > or = 6.5%. Monitoring of Diabetes Age (y) Therapeutic Goal (%) Adults: >18 <7.0 Pediatrics: 13-18 <7.5 7-12 <8.0 0- 6 7.5-8.5 [employer] [employer]. Diabetes Care 33(S1), Mar 2009. Laboratory - Chemistry and C hemistry - challengeon 12-28-2020 Albumin BCP dye [Mass/Vol] 4.2 g/dL 3.4 - 5.0 [facility] Work Phone: ALP [Catalytic activity/Vol] 52 U/L 33 - 136 [facility] Work Phone: ALT With P-5'-P [Catalytic activity/Vol] 18 U/L 10 - 52 [facility] Work Phone: Comment on above: Patients treated wit h Sulfasalazine may generate falsely decreased results for ALT. Anion gap [Moles/Vol] 12 mmol/L 10 - 20 [facility] Work Phone: AST With P-5'-P [Catalytic activity/Vol] 17 U/L 9 - 39 [facility] Work Phone: Bilirubin [Mass/Vol] 0.6 mg/dL 0.0 - 1.2 [facility] Work Phone: Calcium [Mass/Vol] 9.7 mg/dL 8.6 - 10.3 [facility] Work Phone: Chloride [Moles/Vol] 100 mmol/L 98 - 107 [facility] Work Phone: CO2 [Moles/Vol] 29 mmol/L 21 - 32 [facility] Work Phone: Creatinine [Mass/Vol] 0.94 mg/dL See Below [facility] Work Phone: Comment on above: Reference Range: 0.5 0 - 1.30 Glucose [Mass/Vol] 155 mg/dL above high threshold 74 - 99 [facility] Work Phone: Potassium [Moles/Vol] 4.0 mmol/L 3.5 - 5.3 [facility] Work Phone: Protein [Mass/Vol] 6.9 g/dL 6.4 - 8.2 [facility] Work Phone: Sodium [Moles/Vol] 137 mmol/L 136 - 145 [facility] Work Phone: Urea nitrogen [Mass/Vol] 18 mg/dL 6 - 23 [facility] Work Phone: Laboratory - Hematology and Cell countson 12-28-2020 Erythrocyte distribution width (RBC) [Ratio] 14.4 % See Below [facility] Work Phone: Comment on above: Reference Range: 11. 5 - 14.5 Hematocrit (Bld) [Volume fraction] 45.8 % See Below [facility] Work Phone: Comment on above: Reference Range: 41. 0 - 52.0 Hemoglobin (Bld) [Mass/Vol] 15.2 g/dL See Below [facility] Work Phone: Comment on above: Reference Range: 13. 5 - 17.5 MCHC (RBC) [Mass/Vol] 33.3 g/dL See Below [facility] Work Phone: Comment on above: Reference Range: 32. 0 - 36.0 MCV (RBC) [Entitic vol] 89 fL 80 - 100 [facility] Work Phone: [phone] Platelets (Bld) [#/Vol] 192 10*3/uL 150 - 450 [facility] Work Phone: RBC (Bld) [#/Vol] 5.12 {x10E12/L} See Below [facility] Work Phone: [phone] Comment on above: Reference Range: 4.5 0 - 5.90 WBC (Bld) [#/Vol] 5.1 10*3/uL 4.4 - 11.3 [facility] Work Phone: Lipid Panelon 12-28-2020 Cholesterol [Mass/Vol] 106 mg/dL 0 - 199 [facility] Work Phone: Comment on above: . [...] Cholesterol in HDL [Mass/Vol] 38.0 mg/dL Abnormal [facility] Work Phone: Comment on above: . AGE VERY LOW LOW N ORMAL HIGH 0-19 Y < 35 < 40 40-45 ---- 20- 24 Y ---- < 40 >45 ---- >24 Y ---- < 40 40-60 >60. Cholesterol in LDL [Mass/Vol] 51 mg/dL 0 - 99 [facility] Work Phone: Comment on above: . NEAR BORD AGE ALISHA RABLE OPTIMAL HIGH HIGH VERY HIGH 0-19 Y 0 - 109 --- 110-129 >/= 130 ---- 20-24 Y 0 - 119 --- 120-159 >/= 160 ---- >24 Y 0 - 99 100-129 130-159 160-189 >/=190. Cholesterol.total/Cho lesterol in HDL [Mass ratio] 2.8 {ratio} [facility] Work Phone: Comment on above: REF VALUESDESIRABLE < 3.4HIGH RISK > 5.0 Triglyceride [Mass/Vol] 85 mg/dL 0 - 149 [facility] Work Phone: Comment on above: . [...] Lipid Panel 17 mg/dL 0 - 40 [facility] Work Phone: No Panel Informationon 12-28 >60 >60 [facility] Work Phone: Comment on above: CALCULATIONS OF JORGE MATED GFR ARE PERFORMED USING THE MDRD STUDY EQUATION FOR THE IDMS-TRACEABLE CREATININE METHODS. CLIN CHEM 2007;53:766-72 Prostate Specific Antigenon 12-28-2020 Prostate specific Ag [Mass/Vol] ng/mL See Below [facility] Work Phone: Comment on above: Reference Range: 0.0 0 - 4.00The FDA requires that the method used for PSA assay be reported to the physician. Values obtained with different assay methods must not be used interchangeably. This testwas performed at [facility] using the [employer] PSA assay is a two-site immunoenzymatic sandwich assay. The assay is approved for measurement of prostate-specific antigen (PSA)in serum and may be used in conjunction with a digital rectal examination in men 50 years and older as an aid in detection of prostate cancer.0-Hcbqa-mdgpjjust inhibitors (e.g. Proscar, Finasteride, Avodart, Dutasteride and Yessica) for the treatment of BPH have been shown to lower PSA levels by an average of 50% after 6 months of treatment. Vitamin B12, Serumon 021 Cobalamin (Vitamin B12) [Mass/Vol] 291 pg/mL 211 - 911 [facility] Work Phone: MRI Brain w/wo Contraston MR Brain WO and W contrast IV Interpreted by: NEYDA PANCHAL06/18/20 15:43MRN: [id number] Name: ALL YOUNG STUDY:MRI BRAIN W/WO CONTRAST; 06/18/2020 2:58 pm INDICATION:Memory loss NO TO MRI QUESTION. COMPARISON:None. ORDERING CLINICIAN:LEN DUQUE TECHNIQUE:Axial T2, FLAIR, DWI, gradient echo T2 and sagittal and coronal [id number] images of brain were acquired. Contrast was [...] signed by: NEYDA PANCHAL 06/18/20 15:43 Normal [facility] Work Phone: Comment on above: ORDER REVISED TO A N R MRI BRAIN W/WO CONTRAST BY RADIOLOGIST; Original Order Number: [id number] NR MRI BRAIN W/WO CONTRASTon 06-18-2020 NR MRI BRAIN W/WO CONTRAST Patient Name: YOUNGALL STUDY: MRI BRAIN W/WO CONTRAST; 06/18/2020 2:58 pm INDICATION: Memory loss NO TO MRI QUESTION. COMPARISON: None. ACCESSION NUMBER(S): [id number] ORDERING CLINICIAN: LEN DUQUE TECHNIQUE: Axial T2, [...] Electronically signed by: NEYDA PANCHAL MD Normal [facility] BASIC METABOLIC PANELon - Anion gap [Moles/Vol] 14 mmol/L Normal 10 - 20 [facility] Comment on above: Performed By: #### B MP #### [address] [address] Calcium [Mass/Vol] 9.3 mg/dL Normal 8.6 - 10.3 [facility] Comment on above: Performed By: #### B MP #### [address] [address] Chloride [Moles/Vol] 98 mmol/L Normal 98 - 107 [facility] Comment on above: Performed By: #### B MP #### [address] [address] Creatinine [Mass/Vol] 0.99 mg/dL Normal 0.50 - 1.30 [facility] Comment on above: Performed By: #### B MP #### [address] [address] GFR- AM. >60 Normal >60 [facility] Comment on above: Result Comment: CALC ULATIONS OF ESTIMATED GFR ARE PERFORMED USING THE MDRD STUDY EQUATION FOR THE IDMS-TRACEABLE CREATININE METHODS. CLIN CHEM 2007;53:766-72 Performed By: #### B MP #### [address] [address] GFR-NON AM. >60 Normal >60 [facility] Comment on above: Performed By: #### B MP #### [address] [address] Glucose [Mass/Vol] 161 mg/dL High 74 - 99 [facility] Comment on above: Performed By: #### B MP #### [address] [address] HCO3 (Bld) [Moles/Vol] 25 mmol/L Normal 21 - 32 [facility] Comment on above: Performed By: #### B MP #### [address] [address] Potassium [Moles/Vol] 4.2 mmol/L Normal 3.5 - 5.3 [facility] Comment on above: Performed By: #### B MP #### [address] [address] Sodium [Moles/Vol] 133 mmol/L Low 136 - 145 [facility] Comment on above: Performed By: #### B MP #### [address] [address] Urea nitrogen [Mass/Vol] 21 mg/dL Normal 6 - 23 [facility] Comment on above: Performed By: #### B MP #### [address] [address] HEMOGLOBIN A1Con 05-29-2020 Glucose [Mass/Vol] 186 mg/dL Normal [facility] Comment on above: Performed By: #### H BA1E #### [address] [address] HbA1c (Bld) [Mass fraction] 8.1 % Normal [facility] Comment on above: Result Comment: Diag nosis of Diabetes-Adults Non-Diabetic: < or = 5.6% Increased risk for developing diabetes: 5.7-6.4% Diagnostic of diabetes: > or = 6.5% . Monitoring of Diabetes Age (y) Therapeutic Goal (%) Adults: >18 <7.0 Pediatrics: 13-18 <7.5 7-12 <8.0 0- 6 7.5-8.5 [employer]. Diabetes Care 33(S1), Mar 2009. Performed By: #### H BA1E #### [address] [place] [address] Hemoglobin A1Con 05-29-2020 HbA1c (Bld) [Mass fraction] 8.1 % [facility] Work Phone: Comment on above: Diagnosis of Diabete s-Adults Non-Diabetic: < or = 5.6% Increased risk for developing diabetes: 5.7-6.4% Diagnostic of diabetes: > or = 6.5%. Monitoring of Diabetes Age (y) Therapeutic Goal (%) Adults: >18 <7.0 Pediatrics: 13-18 <7.5 7-12 <8.0 0- 6 7.5-8.5 [employer]. Diabetes Care 33(S1), Mar 2009. HbA1c (Bld) [Mass fraction] 186 {MG/DL} [facility] Work Phone: Metabolic Panelon 05-29-2020 Anion gap [Moles/Vol] 14 mmol/L 10 - 20 [facility] Work Phone: Calcium [Mass/Vol] 9.3 mg/dL 8.6 - 10.3 [facility] Work Phone: Chloride [Moles/Vol] 98 mmol/L 98 - 107 [facility] Work Phone: CO2 [Moles/Vol] 25 mmol/L 21 - 32 [facility] Work Phone: Creatinine [Mass/Vol] 0.99 mg/dL See Below [facility] Work Phone: Comment on above: Reference Range: 0.5 0 - 1.30 Glucose [Mass/Vol] 161 mg/dL above high threshold 74 - 99 [facility] Work Phone: Potassium [Moles/Vol] 4.2 mmol/L 3.5 - 5.3 [facility] Work Phone: Sodium [Moles/Vol] 133 mmol/L below low threshold 136 - 145 [facility] Work Phone: [phone] Urea nitrogen [Mass/Vol] 21 mg/dL 6 - 23 [facility] Work Phone: Otheron 05-29-2020 >60 >60 [facility] Work Phone: Comment on above: CALCULATIONS OF JORGE MATED GFR ARE PERFORMED USING THE MDRD STUDY EQUATION FOR THE IDMS-TRACEABLE CREATININE METHODS. CLIN CHEM 2007;53:766-72 2 1 [facility] Work Phone: Comment on above: What [...] - referral no t necessary at present [facility] Work Phone: [phone] TSH WITH REFLEX TO FREE T4 I F ABNORMALon 05-29-2020 TSH Qn 1.41 m[IU]/L Normal 0.44 - 3.98 [facility] Comment on above: Result Comment: TSH testing is performed using different testing methodology at [facility] than at other [facility]. Direct result comparisons should only be made within the same method. Performed By: #### T HYDS #### [address] [address] Thyroidon 05-29-2020 TSH Qn 1.41 {mIU/L} See Below [facility] Work Phone: Comment on above: Reference Range: 0.4 4 - 3.98 TSH testing is performed using different testing methodology at [facility] than at other [facility]. Direct result comparisons should only be made within the same method. 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 0.0 - 30.0 [facility] Comment on above: Performed By: #### A LBSP #### [address] [address] CREATININE,URINE 97.0 mg/dL Normal 20.0 - 370.0 [facility] Comment on above: Performed By: #### A LBSP #### [place] [id number] COMPREHENSIVE PANELon 2019 Albumin [Mass/Vol] 4.3 g/dL Normal 3.4 - 5.0 [facility] Comment on above: Performed By: #### C MP #### [address] [address] ALP [Catalytic activity/Vol] 57 U/L Normal 33 - 136 [facility] Comment on above: Performed By: #### C MP #### [place] [id number] ALT [Catalytic activity/Vol] 18 U/L Normal 10 - 52 [facility] Comment on above: Result Comment: [place] ents treated with Sulfasalazine may generate falsely decreased results for ALT. Performed By: #### C MP #### [address] [address] Anion gap [Moles/Vol] 11 mmol/L Normal 10 - 20 [facility] Comment on above: Performed By: #### C MP #### [address] [address] AST [Catalytic activity/Vol] 15 U/L Normal 9 - 39 [facility] Comment on above: Performed By: #### C MP #### [address] [address] Bilirubin [Mass/Vol] 0.4 mg/dL Normal 0.0 - 1.2 [facility] Comment on above: Performed By: #### C MP #### [address] [address] Calcium [Mass/Vol] 9.3 mg/dL Normal 8.6 - 10.3 [facility] Comment on above: Performed By: #### C MP #### [address] [address] Chloride [Moles/Vol] 97 mmol/L Low 98 - 107 [facility] Comment on above: Performed By: #### C MP #### [address] [address] Creatinine [Mass/Vol] 0.95 mg/dL Normal 0.50 - 1.30 [facility] Comment on above: Performed By: #### C MP #### [address] [address] GFR- AM. >60 Normal >60 [facility] Comment on above: Result Comment: CALC ULATIONS OF ESTIMATED GFR ARE PERFORMED USING THE MDRD STUDY EQUATION FOR THE IDMS-TRACEABLE CREATININE METHODS. CLIN CHEM 2007;53:766-72 Performed By: #### C MP #### [address] [address] GFR-NON AM. >60 Normal >60 [facility] Comment on above: Performed By: #### C MP #### [address] [address] Glucose [Mass/Vol] 150 mg/dL High 74 - 99 [facility] Comment on above: Performed By: #### C MP #### [address] [address] HCO3 (Bld) [Moles/Vol] 30 mmol/L Normal 21 - 32 [facility] Comment on above: Performed By: #### C MP #### [address] [address] Potassium [Moles/Vol] 4.3 mmol/L Normal 3.5 - 5.3 [facility] Comment on above: Performed By: #### C MP #### [address] [address] Protein [Mass/Vol] 6.9 g/dL Normal 6.4 - 8.2 [facility] Comment on above: Performed By: #### C MP #### [address] [address] Sodium [Moles/Vol] 134 mmol/L Low 136 - 145 [facility] Comment on above: Performed By: #### C MP #### [address] [address] Urea nitrogen [Mass/Vol] 22 mg/dL Normal 6 - 23 [facility] Comment on above: Performed By: #### C MP #### [address] [address] HEMOGLOBIN A1Con 01-06-2020 Glucose [Mass/Vol] 183 mg/dL Normal [facility] Comment on above: Performed By: #### H BA1E #### [address] [address] HbA1c (Bld) [Mass fraction] 8.0 % Normal [facility] Comment on above: Result Comment: Diag nosis of Diabetes-Adults Non-Diabetic: < or = 5.6% Increased risk for developing diabetes: 5.7-6.4% Diagnostic of diabetes: > or = 6.5% . Monitoring of Diabetes Age (y) Therapeutic Goal (%) Adults: >18 <7.0 Pediatrics: 13-18 <7.5 7-12 <8.0 0- 6 7.5-8.5 [employer]. Diabetes Care 33(S1), Mar 2009. Performed By: #### H BA1E #### [address] [address] LIPID PANEL (CORONARY RISK 2 )on 01-06-2020 Cholesterol [Mass/Vol] 96 mg/dL Normal 0 - 199 [facility] Comment on above: Result Comment: . [...] dosing. Performed By: #### L IPID #### [address] [address] Cholesterol in HDL [Mass/Vol] 34.0 mg/dL Abnormal [facility] Comment on above: Result Comment: . AGE VERY LOW LOW NORMAL HIGH 0-19 Y < 35 < 40 40-45 ---- 20-24 Y ---- < 40 >45 ---- >24 Y ---- < 40 40-60 >60 . Performed By: #### L IPID #### [address] [address] Cholesterol in LDL [Mass/Vol] 30 mg/dL Normal 0 - 99 [facility] Comment on above: Result Comment: . NEAR BORD AGE DESIRABLE OPTIMAL HIGH HIGH VERY HIGH 0-19 Y 0 - 109 --- 110-129 >/= 130 ---- 20-24 Y 0 - 119 --- 120-159 >/= 160 ---- >24 Y 0 - 99 100-129 130-159 160-189 >/=190 . Performed By: #### L IPID #### [address] [address] Cholesterol in VLDL [Mass/Vol] 32 mg/dL Normal 0 - 40 [facility] Comment on above: Performed By: #### L IPID #### [address] [address] Cholesterol.total/Cho lesterol in HDL [Mass ratio] 2.8 {ratio} Normal [facility] Comment on above: Result Comment: REF VALUES DESIRABLE < 3.4 HIGH RISK > 5.0 Performed By: #### L IPID #### [address] [address] Triglyceride [Mass/Vol] 162 mg/dL High 0 - 149 [facility] Comment on above: Result Comment: . [...] dosing. Performed By: #### L IPID #### [address] [address] PROSTATE SPECIFIC AGon 01-05 Prostate specific Ag [Mass/Vol] ng/mL Normal 0.00 - 4.00 [facility] Comment on above: Result Comment: The FDA requires that the method used for PSA assay be reported to the physician. Values obtained with different assay methods must not be used interchangeably. This test was performed at [facility] using the [employer] PSA assay is a two-site immunoenzymatic sandwich assay. The assay is approved for measurement of prostate-specific antigen (PSA)in serum and may be used in conjunction with a digital rectal examination in men 50 years and older as an aid in detection of prostate cancer. 2-Lgmyn-lpbnfreuh inhibitors (e.g. Proscar, Finasteride, Avodart, Dutasteride and Yessica) for the treatment of BPH have been shown to lower PSA levels by an average of 50% after 6 months of treatment. Performed By: #### P SA #### [address] [address] VITAMIN B12on 01-06-2020 Cobalamin (Vitamin B12) [Mass/Vol] 323 pg/mL Normal 211 - 911 [facility] Comment on above: Performed By: #### V TB12 #### [address] [address] BMPon 07-02-2018 Anion gap molar conc 11 mmol/L Normal 10- [facility] Comment on above: Performed By: #### 2 [id number] #### [facility] [address] [place] [address] Calcium mass conc 9.6 mg/dL Normal 8.6-10.3 [facility] Comment on above: Performed By: #### 2 [id number] #### [facility] [address] [place] [address] Chloride molar conc 100 mmol/L Normal 98-107 [facility] Comment on above: Performed By: #### 2 [id number] #### [facility] [address] [place] [address] CO2 molar conc 29.0 mmol/L Normal 21.0-32.0 [facility] Comment on above: Performed By: #### 2 [id number] #### [facility] [address] [place] [address] Creatinine mass conc 1.0 mg/dL Normal 0.5-1.3 [facility] Comment on above: Performed By: #### 2 [id number] #### [facility] [address] [place] [address] Glucose mass conc 186 mg/dL High 70-99 [facility] Comment on above: Performed By: #### 2 [id number] #### [facility] [address] [place] [address] Potassium molar conc 4.6 mmol/L Normal 3.5-5.3 [facility] Comment on above: Performed By: #### 2 [id number] #### [facility] [address] [place] [address] Sodium molar conc 135 mmol/L Low 136-145 [facility] Comment on above: Performed By: #### 2 [id number] #### [facility] [address] [place] [address] Urea nitrogen mass conc 20 mg/dL Normal 6-23 [facility] Comment on above: Performed By: #### 2 [id number] #### [facility] [address] [place] [address] Urea nitrogen/Creatinine mass ratio 20.0 ratio Normal 5.4-30.0 [facility] Comment on above: Performed By: #### 2 [id number] #### [facility] [address] [place] [address] [id number] 07-02-2018 Hemoglobin A1c/Hemoglobin.total mass fraction (Bld) 8.3 % High 4.0-6.3 [facility] Comment on above: Performed By: #### 3 [id number] #### [facility] Chemistry Manual Subsection [address] [place] [address] Microalb/Creat Ratioon 07-02 Creatinine mass conc 158.0 mg/dL Normal 20.0-300.0 [facility] Comment on above: Performed By: #### 1 [id number] #### [facility] [address] [place] [address] Creatinine mass conc 11 ug/mg Normal 0-30 [facility] Comment on above: Performed By: #### 1 [id number] #### [facility] [address] [place] [address] Ur Microalbumin 1.7 mg/dL Normal 0.0-1.9 [facility] Comment on above: Performed By: #### 1 [id number] #### [facility] [address] [place] [address] eGFRon 07-02-2018 GFR/1.73 sq M predicted among non-blacks MDRD vol rate/area (S/P/Bld) mL/min/{1.73_m2} Normal [facility] Comment on above: Order Comment: Order added by Discern Expert. Performed By: #### 1 [id number] #### [facility] [address] [place] [address] BMPon 01-08-2018 Anion gap molar conc 12 mmol/L Normal 10-20 [facility] Comment on above: Performed By: #### 2 [id number] #### [facility] [address] [place] [address] Calcium mass conc 9.7 mg/dL Normal 8.6-10.3 [facility] Comment on above: Performed By: #### 2 [id number] #### [facility] [address] [place] [address] Chloride molar conc 96 mmol/L Low 98-107 [facility] Comment on above: Performed By: #### 2 [id number] #### [facility] [address] [place] [address] CO2 molar conc 29.0 mmol/L Normal 21.0-32.0 [facility] Comment on above: Performed By: #### 2 [id number] #### [facility] [address] [place] [address] Creatinine mass conc 1.0 mg/dL Normal 0.6-1.3 [facility] Comment on above: Performed By: #### 2 [id number] #### [facility] [address] [place] [address] Glucose mass conc 160 mg/dL High 70-99 [facility] Comment on above: Performed By: #### 2 [id number] #### [facility] [address] [place] [address] Potassium molar conc 4.4 mmol/L Normal 3.5-5.3 [facility] Comment on above: Performed By: #### 2 [id number] #### [facility] [address] [place] [address] Sodium molar conc 133 mmol/L Low 136-145 [facility] Comment on above: Performed By: #### 2 [id number] #### [facility] [address] [place] [address] Urea nitrogen mass conc 24 mg/dL High 6-23 [facility] Comment on above: Performed By: #### 2 [id number] #### [facility] [address] [place] [address] Urea nitrogen/Creatinine mass ratio 24.0 ratio Normal 5.4-30.0 [facility] Comment on above: Performed By: #### 2 [id number] #### [facility] [address] [place] [address] [id number] 01-08-2018 Hemoglobin A1c/Hemoglobin.total mass fraction (Bld) 8.3 % High 4.0-6.3 [facility] Comment on above: Performed By: #### 3 [id number] #### [facility] Chemistry Manual Subsection [address] [place] [address] Lipid Profileon 01-08-2018 Cholesterol in HDL mass conc 37 mg/dL Normal [facility] Comment on above: Performed By: #### 3 [id number] #### [facility] [address] [place] [address] Cholesterol in LDL mass conc 44 mg/dL Normal 0-130 [facility] Comment on above: Performed By: #### 3 [id number] #### [facility] [address] [place] [address] Cholesterol in VLDL mass conc 24 mg/dL Normal [facility] Comment on above: Performed By: #### 3 [id number] #### [facility] [address] [place] [address] Cholesterol mass conc 105 mg/dL Low 120-200 [facility] Comment on above: Performed By: #### 3 [id number] #### [facility] [address] [place] [address] Triglyceride mass conc 122 mg/dL Normal 0-150 [facility] Comment on above: Result Comment: AGE DESIRABLE BORDELINE HIGH 91 D - 9 Y 0 - 74 75 - 99 > 100 10 - 19 Y 0 - 89 90 - 129 > 130 20 - 24 Y 0 - 114 115 - 149 > 150 > 25 Y 0 - 149 150 - 199 200 - 499 Performed By: #### 3 [id number] #### [facility] [address] [place] [address] PSA Totalon 01-08-2018 PSA Total <0.10 Normal [facility] Comment on above: Performed By: #### 1 [id number] #### [facility] [employer] [address] [place] [address] eGFRon 01-08-2018 GFR/1.73 sq M predicted among non-blacks MDRD vol rate/area (S/P/Bld) mL/min/{1.73_m2} Normal [facility] Comment on above: Order Comment: Order added by Discern Expert. Performed By: #### 1 [id number] #### [facility] [address] [place] [address] ECG 12 Leadon 09-13-2017 Atrial Rate Invalid Interpretation Code [facility] P Percy Invalid Interpretation Code [facility] P-R Interval Invalid Interpretation Code [facility] Q-T Interval Invalid Interpretation Code [facility] Q-T Interval (corrected) Invalid Interpretation Code [facility] QRS Duration Invalid Interpretation Code [facility] QTC Calculation (Bezet) Invalid Interpretation Code [facility] R Percy Invalid Interpretation Code [facility] T Percy Invalid Interpretation Code [facility] Ventricular Rate Invalid Interpretation Code [facility] Vital Signs Date Time Vital Sign Value Performing Clinician Facility 09-21-2024 06:51-0400 Body height 177.[address] Len Duque MD Work Phone: [facility] 01-20-2024 14:57-0500 Body mass index (BMI) [Ratio] 22.63 kg/m2 Len Duque MD Work Phone: [facility] 01-20-2024 14:57-0500 Body weight 68.49 kg Len Duque MD Work Phone: [facility] 01-20-2024 14:57-0500 Diastolic blood pressure 77 mm[Hg] Len Duque MD Work Phone: [facility] 01-20-2024 14:57-0500 Heart rate 77 /min Len Duque MD Work Phone: [facility] 01-20-2024 14:57-0500 SaO2% (BldA) [Mass fraction] 96 % Len Duque MD Work Phone: [facility] 01-20-2024 14:57-0500 Systolic blood pressure 118 mm[Hg] Len Duque MD Work Phone: [facility] 07-20-2023 14:48-0400 Body height 174 cm Len Duque MD Work Phone: [facility] 07-20-2023 14:48-0400 Body mass index (BMI) [Ratio] 23.08 kg/m2 Len Duque MD Work Phone: [facility] 07-20-2023 14:48-0400 Body weight 69.85 kg Len Duque MD Work Phone: [facility] 07-20-2023 14:48-0400 Diastolic blood pressure 72 mm[Hg] Len Duque MD Work Phone: [facility] 07-20-2023 14:48-0400 Heart rate 72 /min Len Duque MD Work Phone: [facility] 07-20-2023 14:48-0400 SaO2% (BldA) [Mass fraction] 96 % Len Duque MD Work Phone: [facility] 07-20-2023 14:48-0400 Systolic blood pressure 122 mm[Hg] Len Duque MD Work Phone: [facility] 02-23-2023 14:27-0500 Body mass index (BMI) [Ratio] 23.48 kg/m2 Len Duque MD Work Phone: [facility] 02-23-2023 14:27-0500 Body weight 72.12 kg Len Duque MD Work Phone: [facility] 02-23-2023 14:27-0500 Diastolic blood pressure 72 mm[Hg] Len Duque MD Work Phone: [facility] 02-23-2023 14:27-0500 Heart rate 69 /min Len Duque MD Work Phone: [facility] 02-23-2023 14:27-0500 SaO2% (BldA) [Mass fraction] 96 % Len Duque MD Work Phone: [facility] 02-23-2023 14:27-0500 Systolic blood pressure 116 mm[Hg] Len Duque MD Work Phone: [facility] 01-11-2023 15:30-0500 Body mass index (BMI) [Ratio] 24.07 kg/m2 Len Duque MD Work Phone: [facility] 01-11-2023 15:30-0500 Body weight 73.94 kg Len Duque MD Work Phone: [facility] 01-11-2023 15:30-0500 Diastolic blood pressure 70 mm[Hg] Len Duque MD Work Phone: [facility] 01-11-2023 15:30-0500 Heart rate 73 /min Len Duque MD Work Phone: [facility] 01-11-2023 15:30-0500 SaO2% (BldA) [Mass fraction] 97 % Len Duque MD Work Phone: [facility] 01-11-2023 15:30-0500 Systolic blood pressure 122 mm[Hg] Len Duque MD Work Phone: [facility] 07-07-2022 15:19-0400 Body height 175.3 cm Len Duque MD Work Phone: [facility] 07-07-2022 15:19-0400 Body mass index (BMI) [Ratio] 25.84 kg/m2 Len Duque MD Work Phone: [facility] 07-07-2022 15:19-0400 Body weight 79.38 kg Len Duque MD Work Phone: [facility] 07-07-2022 15:19-0400 Diastolic blood pressure 78 mm[Hg] Len Duque MD Work Phone: [facility] 07-07-2022 15:19-0400 Heart rate 79 /min Len Duque MD Work Phone: [facility] 07-07-2022 15:19-0400 SaO2% (BldA) [Mass fraction] 96 % Len Duque MD Work Phone: [facility] 07-07-2022 15:19-0400 Systolic blood pressure 110 mm[Hg] Len Duque MD Work Phone: [facility] 02-17-2022 13:53-0500 Body height 175.26 cm Len Duque Work Phone: [facility] Work Phone: 02-17-2022 13:53-0500 Body mass index (BMI) [Ratio] 24.96 kg/m2 Len Duque Work Phone: [facility] Work Phone: 02-17-2022 13:53-0500 Body surface area Derived from formula 1.92 m2 Len Moralezer Work Phone: [facility] Work Phone: 02-17-2022 13:53-0500 Body weight 76.66 kg Len Moralezer Work Phone: [facility] Work Phone: 02-17-2022 13:53-0500 Diastolic blood pressure 76 mm[Hg] Len Moralezer Work Phone: [facility] Work Phone: 02-17-2022 13:53-0500 Heart rate 68 /min Len Moralezer Work Phone: [facility] Work Phone: 02-17-2022 13:53-0500 Systolic blood pressure 128 mm[Hg] Len Moralezer Work Phone: [facility] Work Phone: 12-06-2021 06:09-0400 Body temperature 98 [degF] [facility] Work Phone: 12-06-2021 06:09-0400 Diastolic blood pressure 82 mm[Hg] [facility] Work Phone: 12-06-2021 06:09-0400 Heart rate 61 /min [facility] Work Phone: 12-06-2021 06:09-0400 Respiratory rate 17 /min [facility] Work Phone: 12-06-2021 06:09-0400 SaO2% (BldA) [Mass fraction] 96 % [facility] Work Phone: 12-06-2021 06:09-0400 Systolic blood pressure 141 mm[Hg] [facility] Work Phone: 12-06-2021 04:09-0400 Body height 177.8 cm [facility] Work Phone: 12-06-2021 04:09-0400 Body mass index (BMI) [Ratio] 24.2 kg/m2 [facility] Work Phone: 12-06-2021 04:09-0400 Body weight 76.5 kg [facility] Work Phone: 01-09-2021 13:50-0400 Body height 175.9 cm Len Faith RodgersDuque Work Phone: [facility] Work Phone: 01-09-2021 13:50-0400 Body mass index (BMI) [Ratio] 25.51 kg/m2 Len Faith RodgersDuque Work Phone: [facility] Work Phone: 01-09-2021 13:50-0400 Body surface area Derived from formula 1.95 m2 Len O Duque Work Phone: [facility] Work Phone: 01-09-2021 13:50-0400 Body weight 78.93 kg Len O Duque Work Phone: [facility] Work Phone: 01-09-2021 13:50-0400 Diastolic blood pressure 64 mm[Hg] Len O Duque Work Phone: [facility] Work Phone: 01-09-2021 13:50-0400 Heart rate 72 /min Len O Duque Work Phone: [facility] Work Phone: 01-09-2021 13:50-0400 Systolic blood pressure 110 mm[Hg] Len O Duque Work Phone: [facility] Work Phone: 07-08-2020 11:37-0400 Body height 175.9 cm Len Duque MD [facility] Work Phone: 07-08-2020 11:37-0400 Body mass index (BMI) [Ratio] 27.12 kg/m2 Len Duque MD [facility] Work Phone: 07-08-2020 11:37-0400 Body surface area Derived from formula 2 m2 Len Duque MD [facility] Work Phone: 07-08-2020 11:37-0400 Body weight 83.92 kg Len Duque MD [facility] Work Phone: 07-08-2020 11:37-0400 Diastolic blood pressure 80 mm[Hg] Len Duque MD [facility] Work Phone: Comment on above: [place] [facility] [place] 07-08-2020 11:37-0400 Heart rate 72 /min Len Duque MD [facility] Work Phone: 07-08-2020 11:37-0400 Systolic blood pressure 124 mm[Hg] Len Duque MD [facility] Work Phone: Comment on above: Location[place] [facility] [place] 05-29-2020 11:09-0400 BMI (Body Mass Index) 27.85 kg/m2 Len Duque [facility] Work Phone: 05-29-2020 11:09-0400 Body weight 86.18 kg Len Duque [facility] Work Phone: 05-29-2020 11:09-0400 BP Diastolic 74 mm[Hg] Len Duque [facility] Work Phone: Comment on above: Location: E; 05-29-2020 11:09-0400 BP Systolic 126 mm[Hg] Len Duque [facility] Work Phone: Comment on above: Location: [facility]; 05-29-2020 11:09-0400 BSA (Body Surface Area) 2.03 m2 Len Wu [facility] Work Phone: 05-29-2020 11:090400 Height 175.9 cm [facility] Work Phone: 05-29-2020 11:09-0400 Pulse (Heart Rate) 68 /min Len Duque [facility] Work Phone: 09-13-2017 13:01-0400 BMI (Body Mass Index) 28.71 kg/m2 Ryan Dillard [facility] 09-13-2017 13:0400 Height 177.8 cm Ryan Dillard [facility] 09-13-2017 13:0400 Weight 90.77 kg Ryan Dillard [facility] Encounters Encounter Date Encounter Type Care Provider Facility Start: 01-11-2025 ambulatory Chau MURRELL Fa cility:[facility] Start: 01-09-2025 ambulatory Chau MURRELL Fa cility:[facility] Start: 11-30-2024 End: 11-30-2024 ambulatory Kirti Ortiz [employer] Facility:[facility] Start: 11-16-2024 End: 11-16-2024 ambulatory Kirti Ortiz [employer] Facility:[facility] Start: 11-07-2024 End: 11-07-2024 ambulatory Len Duque Facility:[facility] Start: 11-07-2024 Registered Referred Chau MONTGOMERY Christopher Start: 11-07-2024 End: 11-07-2024 ambulatory Chau MURRELL Facility:[facility] Start: 10-27-2024 End: 10-27-[address] Len Duque MD Work Phone: -[facility] Start: 10-27-2024 End: 10-27-2024 Patient encounter procedure Kirti Ortiz [employer]-[facility] Work Phone: Start: 10-27-2024 Registered Referred Chau MONTGOMERY Christopher Start: 10-27-2024 End: 10-27-2024 ambulatory Chau MURRELL Facility:[facility] Start: 10-06-2024 End: 10-06-[address] Len Duque MD Work Phone: [facility] Start: 10-06-2024 End: 10-06-2024 Patient encounter procedure Catrina Prasad [employer]- -[facility] Work Phone: Start: 10-02-2024 ambulatory Chau MURRELL Fa cility:[facility] Start: 10-02-2024 Registered Referred Chau Smallwood MD -[facility] Start: 09-05-2024 End: 09-05-[address] Len Duque MD Work Phone: [facility] Start: 09-05-2024 End: 09-05-[address] Chau Smallwood MD -[facility] Work Phone: Start: 08-22-2024 End: 08-22-[address] Len Duque MD Work Phone: [facility] Start: 08-22-2024 End: 08-22-2024 [facility] Start: 08-22-2024 [facility] Start: 08-22-2024 End: 08-22-2024 ambulatory Chau MURRELL Facility:[facility] Start: 08-08-2024 End: 08-08-[address] Len Duque MD Work Phone: [facility] Start: 08-08-2024 End: 08-08-[address] Chau Smallwood MD -[facility] Work Phone: Start: 08-07-2024 End: 08-07-[address] 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); Hypercholesterolemia; Primary hypertension; Type 2 diabetes mellitus without complication, without long-term current use of insulin (Multi); Abnormal weight loss; Benign prostatic hyperplasia with urinary obstruction; Bilateral renal cysts; Cervical spondylolysis; 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; 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 (Multi); Hiatal hernia; Chronic bilateral low back pain without sciatica; Malignant neoplasm of skin; Prostate cancer (Multi); Pseudophakia, both eyes; 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, psychotic disturbance, mood disturbance, or anxiety; Urge incontinence of urine Start: 01-20-2024 End: 01-20-2024 ambulatory [facility] Start: 01-20-2024 End: 01-20-2024 ambulatory [facility] Start: 07-20-2023 End: 07-20-2023 Office outpatient visit 25 minutes Len Duque MD Work Phone: [facility] Comment on above: Abnormal weight loss (Primary Dx); Benign prostatic hyperplasia with urinary obstruction; 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 ([facility]-HCC); Diabetic mononeuropathy associated with type 2 diabetes [...] Start: 07-03-2023 End: 07-03-2023 ambulatory LEN DUQUE [facility] Start: 02-23-2023 End: 02-23-2023 Office outpatient visit 15 minutes Len Duque MD Work Phone: [facility] Comment on above: Diabetic mononeuropa thy associated with type 2 diabetes mellitus (CMS/HCC) (Primary Dx); Abnormal weight loss; 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, psychotic disturbance, mood disturbance, or anxiety (CMS/HCC) Start: 01-11-2023 End: 01-11-2023 Assay of hemosiderin, quant Len Duque MD Work Phone: [facility] Work Phone: Start: 01-11-2023 End: 01-11-2023 Office outpatient visit 25 minutes Len Duque MD Work Phone: [facility] Comment on above: Routine general medi jean examination at health care facility (Primary Dx); 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, psychotic disturbance, mood disturbance, or anxiety (CMS/HCC); Hypercholesterolemia; 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 (CMS/HCC); Primary [...] 25 minutes Len Duque MD Work Phone: [facility] Comment on above: 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 (Primary Dx); Prostate cancer (CMS/HCC); Bilateral renal cysts; Cervical spondylolysis; 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 (CMS/HCC); 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 (CMS/HCC); Hiatal hernia; Hypercholesterolemia; Primary hypertension; Chronic bilateral low back pain without sciatica; 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, psychotic disturbance, mood disturbance, or anxiety (CMS/HCC); Malignant neoplasm of skin; Pseudophakia, both eyes; Urge incontinence of urine Start: 03-13-2022 AUDIT Len Duque Work Phone: [facility] Work Phone: Start: 02-17-2022 Office outpatient vi sit 15 minutes Len Cuevas Roland Work Phone: [facility] Work Phone: Start: 02-17-2022 ambulatory Len Duque Facil [id number] Start: 01-13-2022 ambulatory Len Duque Facil [id number] Start: 12-06-2021 End: 12-06-2021 Emergency department patient visit [facility] Start: 10-02-2021 AUDIT Len Faith Duque Work Phone: [facility] Work Phone: Start: 07-11-2021 ambulatory Len Duque Facil [id number] Start: 07-07-2021 Chart Update Len Moralezer Work Phone: [facility] Work Phone: Start: 01-09-2021 Office outpatient vi sit 25 minutes Lenjosé Moralezer Work Phone: [facility] Work Phone: Start: 10-07-2020 AUDIT Len Faith RodgersDuque Work Phone: [facility] Work Phone: Start: 07-08-2020 Patient encounter procedure Len Duque MD [facility] Work Phone: Start: 05-29-2020 Patient encounter procedure Len Duque [facility] Work Phone: Start: 01-11-2020 Patient encounter procedure Len Duque [facility] Work Phone: Start: 07-11-2019 Patient encounter procedure Len Duque [facility] Work Phone: Start: 01-11-2019 Patient encounter procedure Len Duque -[facility] Work Phone: Start: 07-08-2018 End: 07-09-2018 Patient encounter procedure Len Duque Facility:[facility] Start: 07-02-2018 End: 07-03-2018 Patient encounter procedure Len Duque Facility:[facility] Start: 01-08-2018 End: 01-09-2018 Patient encounter procedure Len Duque Facility:[facility] Start: 01-07-2018 End: 01-08-2018 Patient encounter procedure Len Duque Facility:[facility] Start: 09-13-2017 End: 09-13-2017 Office outpatient visit 15 minutes Ryan Dillard Work Phone: [facility] Office Procedures Date Procedure Procedure Detail Performing Clinician Start: 01-20-2024 Lipid 1996 panel - Serum or Plasma Len Duque MD Work Phone: Start: 07-03-2023 Comprehensive metabolic 2000 panel - Serum or Plasma LEN DUQUE Start: 07-03-2023 Hemoglobin A1c/Hemoglobin.total in Blood LEN DUQUE Start: 12-26-2022 Lipid 1996 panel - Serum or Plasma Len Duuqe MD Work Phone: Start: 01-10-2022 Lipid 1996 [...] Vaccines (2 - Td or Tdap) [facility] Start: 01-19-2025 Lipid panel Lipid Panel [facility] Start: 07-19-2024 End: 01-19-2025 Comprehensive metabolic 2000 panel - Serum or Plasma Comprehensive metabolic panel Lab Routine 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) Expected: 07/19/2024 (Approximate), Expires: 01/19/2025 [facility] Service Area Work Phone: Comment on above: Expected: 07/19/2024 (Approximate), Expires: 01/19/2025 Start: 07-19-2024 End: 01-19-2025 Hemoglobin A1c/Hemoglobin.total in Blood Hemoglobin A1c Lab Routine 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) Expected: 07/19/2024 (Approximate), Expires: 01/19/2025 [facility] Work Phone: Comment on above: Expected: 07/19/2024 (Approximate), Expires: 01/19/2025 Start: 02-26-2024 COVID-19 Vaccine () COVID-19 Vaccine () [facility] Start: 01-20-2024 End: 01-20-2024 Patient encounter procedure 01/20/2024 3:00 PM EST Office Visit [facility] [address] [place] [id number] Len Duque MD [address] [facility], [address] [place] [address] [facility] Start: 01-20-2024 End: 07-19-2024 CBC panel - Blood by Automated count CBC Lab Routine 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) Expected: 01/20/2024 (Approximate), Expires: 07/19/2024 [facility] Service Area Work Phone: Comment on above: Expected: 01/20/2024 (Approximate), Expires: 07/19/2024 Start: 01-20-2024 End: 07-19-2024 Cobalamin (Vitamin B12) [Mass/volume] in Serum or Plasma Vitamin B12 Lab Routine 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) Expected: 01/20/2024 (Approximate), Expires: 07/19/2024 [facility] Work Phone: Comment on above: Expected: 01/20/2024 (Approximate), Expires: 07/19/2024 Start: 01-20-2024 End: 07-19-2024 Comprehensive metabolic 2000 panel - Serum or Plasma Comprehensive Metabolic Panel Lab Routine 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) Expected: 01/20/2024 (Approximate), Expires: 07/19/2024 [facility] Work Phone: Comment on above: Expected: 01/20/2024 (Approximate), Expires: 07/19/2024 Start: 01-20-2024 End: 07-19-2024 Hemoglobin A1c/Hemoglobin.total in Blood Hemoglobin A1C Lab Routine 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) Expected: 01/20/2024 (Approximate), Expires: 07/19/2024 [facility] Work Phone: Comment on above: Expected: 01/20/2024 (Approximate), Expires: 07/19/2024 Start: 01-20-2024 End: 07-19-2024 Lipid 1996 panel - Serum or Plasma Lipid Panel Lab Routine Hypercholesterolemia Expected: 01/20/2024 (Approximate), Expires: 07/19/2024 [facility] Work Phone: Comment on above: Expected: 01/20/2024 (Approximate), Expires: 07/19/2024 Start: 01-20-2024 End: 07-19-2024 Prostate specific Ag [Mass/volume] in Serum or Plasma Prostate Specific Antigen Lab Routine Prostate cancer (Multi) Expected: 01/20/2024 (Approximate), Expires: 07/19/2024 [facility] Work Phone: Comment on above: Expected: 01/20/2024 (Approximate), Expires: 07/19/2024 Start: 12-27-2023 Lipid panel Lipid Panel [facility] Start: 11-07-2023 Influenza vaccination Influenz a Vaccine (Season Ended) [facility] Start: 10-02-2023 Hemoglobin A1c measurement Diabetes: Hemoglobin A1C [facility] Start: 07-27-2023 End: 07-27-2023 Patient encounter procedure 07/27/2023 3:00 PM EDT Office Visit [facility] [address] [phone] Len Duque MD [address] [facility] [address] [place] [address] [facility] Start: 07-23-2023 End: 02-24-2024 Comprehensive metabolic 2000 panel - Serum or Plasma Comprehensive Metabolic Panel Lab Routine 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 (CMS/HCC) Expected: 07/23/2023 (Approximate), Expires: 02/24/2024 [facility] Service Area Work Phone: Comment on above: Expected: 07/23/2023 (Approximate), Expires: 02/24/2024 Start: 07-23-2023 End: 02-24-2024 Hemoglobin A1c/Hemoglobin.total in Blood Hemoglobin A1C Lab Routine 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 (CMS/HCC) Expected: 07/23/2023 (Approximate), Expires: 02/24/2024 [facility] Work Phone: Comment on above: Expected: 07/23/2023 (Approximate), Expires: 02/24/2024 Start: 03-28-2023 Hemoglobin A1c measurement Diabetes: Hemoglobin A1C [facility] Start: 02-16-2023 End: 02-16-2023 Patient encounter procedure 02/16/2023 4:00 PM EST Office Visit [facility] [address] [place] [phone] Len Duque MD [address] [facility], [address] [place] [address] [facility] Start: 01-10-2023 Lipid panel Lipid Panel [facility] Start: 01-07-2023 End: 07-08-2023 CBC panel - Blood by Automated count CBC Lab Routine 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 (CMS/HCC) Expected: 01/07/2023 (Approximate), Expires: 07/08/2023 [facility] Work Phone: Comment on above: Expected: 01/07/2023 (Approximate), Expires: 07/08/2023 Start: 01-07-2023 End: 07-08-2023 Comprehensive metabolic 2000 panel - Serum or Plasma Comprehensive Metabolic Panel Lab Routine 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 (CMS/HCC) Expected: 01/07/2023 (Approximate), Expires: 07/08/2023 [facility] Work Phone: Comment on above: Expected: 01/07/2023 (Approximate), Expires: 07/08/2023 Start: 01-07-2023 End: 07-08-2023 Hemoglobin A1c/Hemoglobin.total in Blood Hemoglobin A1C Lab Routine 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 (CMS/HCC) Expected: 01/07/2023 (Approximate), Expires: 07/08/2023 [facility] Work Phone: Comment on above: Expected: 01/07/2023 (Approximate), Expires: 07/08/2023 Start: 01-07-2023 End: 07-08-2023 Lipid 1996 panel - Serum or Plasma Lipid Panel Lab Routine Hypercholesterolemia Expected: 01/07/2023 (Approximate), Expires: 07/08/2023 [facility] Work Phone: Comment on above: Expected: 01/07/2023 (Approximate), Expires: 07/08/2023 Start: 01-07-2023 End: 07-08-2023 Magnesium [Mass/volume] in Serum or Plasma Magnesium Lab Routine 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 (CMS/HCC) Expected: 01/07/2023 (Approximate), Expires: 07/08/2023 [facility] Work Phone: Comment on above: Expected: 01/07/2023 (Approximate), Expires: 07/08/2023 Start: 01-07-2023 End: 07-08-2023 Prostate specific Ag [Mass/volume] in Serum or Plasma PSA Lab Routine Prostate cancer ([facility]/HCC) Expected: 01/07/2023 (Approximate), Expires: 07/08/2023 [facility] Service Area Work Phone: Comment on above: Expected: 01/07/2023 (Approximate), Expires: 07/08/2023 Start: 01-07-2023 End: 07-08-2023 TSH with reflex to Free T4 if abnormal TSH with reflex to Free T4 if abnormal Lab Routine Primary hypertension Expected: 01/07/2023 (Approximate), Expires: 07/08/2023 [facility] Work Phone: Comment on above: Expected: 01/07/2023 (Approximate), Expires: 07/08/2023 Start: 11-06-2022 COVID-19 Vaccine () COVID-19 Vaccine () [facility] Start: 11-06-2022 Influenza vaccination [facility] Start: 07-07-2022 EPV, Provider: Len Duque, Status: Pen, Time: 3:30 PM EPV, Provider: Len Duque, Status: Pen, Time: 3:30 PM [facility] Work Phone: Start: 04-12-2022 Hemoglobin A1c measurement Diabetes: Hemoglobin A1C [facility] Start: 01-13-2022 EPV, Provider: Len Duque, Status: Pen, Time: 3:30 PM EPV, Provider: Len Duque, Status: Pen, Time: 3:30 PM [facility] Work Phone: Start: 07-11-2021 EPV, Provider: Len Duque, Status: Pen, Time: 2:30 PM EPV, Provider: Len Duque, Status: Pen, Time: 2:30 PM [facility] Work Phone: Start: 01-25-2021 COVID-19 Vaccine (4 - Booster for Pfizer series) COVID-19 Vaccine (4 - Booster for Pfizer series) [facility] Start: 01-25-2021 COVID-19 Vaccine (4 - Pfizer series) COVID-19 Vaccine (4 - Pfizer series) [facility] Start: 01-09-2021 EPV, Provider: Len Duque, Status: Pen, Time: 2:00 PM EPV, Provider: Len Duque, Status: Pen, Time: 2:00 PM [facility] Work Phone: Start: 01-08-2021 Assay of prostate specific antigen total Prostate Specific Antigen [facility] Work Phone: Start: 01-08-2021 CBC W Auto Differential panel - Blood Complete Blood Count [facility] Work Phone: Start: 01-08-2021 Comprehensive metabolic 2000 panel - Serum or Plasma Comprehensive Metabolic Panel [facility] Work Phone: Start: 01-08-2021 Cyanocobalamin vitam in b-12 Vitamin B12, Serum [facility] Work Phone: Start: 01-08-2021 Hemoglobin glycosylated a1c Hemoglobin A1C [facility] Work Phone: Start: 01-08-2021 Lipid panel Lipid Panel [facility] Work Phone: Start: 01-05-2021 Urine screening for protein Diabetes: Urine Protein Screening [facility] Start: 07-08-2020 Assay of prostate specific antigen total Prostate Specific Antigen [facility] Work Phone: Start: 07-08-2020 CBC W Auto Differential panel - Blood Complete Blood Count [facility] Work Phone: Start: 07-08-2020 Comprehensive metabolic 2000 panel - Serum or Plasma Comprehensive Metabolic Panel [facility] Work Phone: Start: 07-08-2020 Cyanocobalamin vitam in b-12 Vitamin B12, Serum [facility] Work Phone: Start: 07-08-2020 Hemoglobin glycosylated a1c Hemoglobin A1C [facility] Work Phone: Start: 07-08-2020 Lipid panel Lipid Panel [facility] Work Phone: Start: 01-11-2020 Assay of prostate specific antigen total Prostate Specific Antigen [facility] Work Phone: Start: 01-11-2020 Cobalamin (Vitamin B12) [Mass/Vol] Vitamin B12, Serum [facility] Work Phone: Start: 01-11-2020 Comprehensive metabolic 2000 panel [facility] Work Phone: Start: 01-11-2020 HbA1c (Bld) [Mass fraction] Hemoglobin A1C [facility] Work Phone: Start: 01-11-2020 Lipid panel Lipid Panel [facility] Work Phone: Start: 11-06-2017 Influenza vaccination SEQUENTI AL INFLUENZA VACCINE (#1) [facility] Start: 2007 Pneumococcal vaccination PNEUMOCOCCAL VACCINE AGE 65+ (1 of 2 - PCV13) [facility] Start: 2002 RSV patient s and/or patients aged 60+ years (1 - 1-dose 60+ series) RSV patients and/or patients aged 60+ years (1 - 1-dose 60+ series) [facility] Start: 2002 Zoster vaccine hzv live for subcutaneous use ZOSTER VACCINE [facility] Start: 1992 Zoster Vaccines (1 o f 2) Zoster Vaccines (1 of 2) [facility] Start: 1952 Diabetic foot examination Diabetes: Foot Exam [facility] Start: 1952 Glaucoma screening Diabetes: R etinopathy Screening [facility] Start: 1952 Ophthalmic examinati on and evaluation Diabetes: Retinopathy Screening [facility] Start: 1942 Examination of skin Derm Melanoma Sk in Check [facility] Start: 1942 Screening colon[facility] Start: 1942 Tetanus vaccination TETANUS EVERY 10 YR [facility] Start: 1942 Yearly Adult Physical Yearly Adult P hycal [facility] Patient Education ED Chest Pain, Noncardiac ED Chest Wall Strain [facility] Work Phone: Patient referral [facility] Work Phone: NEGATED: Highlighted row has been ruled out! Planned Goals not documented [facility] Work Phone: Immunizations Immunization Date Immunization Notes Care Provider Fa cili 01-01-2024 influenza, seasonal, injectable Len Duque MD Work Phone: [facility] Work Phone: 01-01-2024 Pfizer Purple Cap SARS-CoV-2 Len Duque MD Work Phone: [facility] Work Phone: 01-01-2024 Respiratory Synctial Virus (Rsv), Unspecified Len Duque MD Work Phone: [facility] Work Phone: 01-23-2022 Pfizer COVID-19 Vac Bivalent 30 MCG/0.3ML Intramuscular Suspension Len Rodgersyder Work Phone: [facility] Work Phone: Comment on above: Series: 12-01-2021 Fluzone High-Dose Quadrivalent 0.7 ML Intramuscular Suspension Prefilled Syringe Len Rodgersyder Work Phone: [facility] Work Phone: Comment on above: Series: 12-01-2021 influenza virus vacc ine, unspecified formulation Len Duque MD Work Phone: [facility] Work Phone: 08-24-2021 zoster vaccine recombinant Len Rodgersyder Work Phone: [facility] Work Phone: Comment on above: Series: 08-24-2021 zoster vaccine, live Len Rodgersyder Work Phone: [facility] Work Phone: Comment on above: Series: 06-20-2021 zoster vaccine recombinant Len Duque Work Phone: [facility] Work Phone: Comment on above: Series: 11-30-2020 influenza, high dose seasonal, preservative-free Len Duque Work Phone: [facility] Work Phone: Comment on above: Series: 11-30-2020 influenza, seasonal, injectable Len Duque Work Phone: [facility] Work Phone: Comment on above: Series: 11-30-2020 Influenza, Seasonal, Quadrivalent, Adjuvanted Len Duque MD Work Phone: [facility] Work Phone: 11-30-2020 [employer] COVI D-19 Vacc 30 MCG/0.3ML Intramuscular Suspension Len Duque Work Phone: [facility] Work Phone: Comment on above: Series: 04-24-2020 Pfizer-BioNTech COVI D-19 Vacc 30 MCG/0.3ML Intramuscular Suspension Len Duque [facility] Work Phone: Comment on above: Series: 04-03-2020 Pfizer-BioNTech COVI D-19 Vacc 30 MCG/0.3ML Intramuscular Suspension Len Duque [facility] Work Phone: Comment on above: Series: 12-20-2019 influenza virus vacc ine, unspecified formulation Len Duque Work Phone: [facility] Work Phone: Comment on above: Series: 12-20-2019 influenza, injectabl e, quadrivalent, preservative free Len Duque MD Work Phone: [facility] Work Phone: 12-20-2019 influenza, seasonal, injectable Lenjosé Moralezer [facility] Work Phone: Comment on above: Series: 12-20-2019 influenza, seasonal, injectable Len Duque [facility] Work Phone: 01-06-2019 influenza, seasonal, injectable Lenjosé Moralezer [facility] Work Phone: Comment on above: Series: 12-24-2017 influenza virus vacc ine, unspecified formulation; Translations: [influenza virus vaccine, unspecified formulation] Len Duque [facility] Work Phone: Comment on above: Series: 07-09-2017 tetanus toxoid, redu omaira diphtheria toxoid, and acellular pertussis vaccine, adsorbed Len Duque [facility] Work Phone: Comment on above: Series: 12-30-2016 influenza virus vacc ine, live, attenuated, for intranasal use Len Duque MD Work Phone: [facility] Work Phone: 07-14-2016 pneumococcal conjuga te vaccine, 13 valayana Duque [facility] Work Phone: Comment on above: Series: 01-19-2011 pneumococcal polysaccharide vaccine, 23 valayana Duque [facility] Work Phone: Comment on above: Series: Payers Date Payer Category Payer Medicaid [id number] 2024 Self-pay [id number] 2023 Managed Care (Private) [employer] [id number] 2023 Private Health Insurance [id number] 2023 Private Health Insurance [id number] 2015 Medicare supplementa l policy (as second payer) [employer] MEDICARE SUPPLEMENT [id number] 2015 Medicare [id number] 2015 Private Health Insurance [id number] 2011 Private Health Insurance 2011 Private Health Insurance [id number] 1942 Unknown [id number] .717 1942 Unknown [id number] 2.16.840.1.196617.3.579.2 .356 1942 Unknown [id number] [id number] .356 1942 Unknown [id number] 2.16.840.1.812210.3.579.2 .356 1942 Unknown [id number] 2.16.840.1.305588.3.579.2 .1245 1942 Unknown [id number] 2.16.840.1.251232.3.579.2 .1245 1942 Unknown [id number] 2.16.840.1.364992.3.579.2 .1244 1942 Unknown [id number] 2.16.840.1.807531.3.579.2 .1244 Unknown Unknown [id number] 2.16.840.1.663202.3.579.2 .462 Unknown [id number] 2.16.840.1.574514.3.579.2 .462 Unknown [id number] 2.16.840.1.080147.3.579.2 .462 Unknown [id number] 2.16.840.1.855162.3.579.2 .462 Unknown [id number] 2.16.840.1.840642.3.579.2 .462 Unknown [id number] 2.16.840.1.744107.3.579.2 .462 Unknown [id number] 2.16.840.1.922527.3.579.2 .462 Unknown [id number] 2.16.840.1.069885.3.579.2 .462 Unknown [id number] 2.16.840.1.355055.3.579.2 .462 Unknown [id number] 2.16.840.1.180274.3.579.2 .462 Unknown [id number] 2.16.840.1.720355.3.579.2 .462 Unknown [id number] 2.16.840.1.987950.3.579.2 .462 Unknown [id number] 2.16.840.1.880054.3.579.2 .462 Unknown [id number] 2.16.840.1.715464.3.579.2 .462 Unknown [id number] 2.16.840.1.381399.3.579.2 .462 Social History Date Type Detail Facility Start: 09-13-2017 End: 09-21-2024 Tobacco smoking status SCIS Former smoker [facility] Sex Assigned At Not on file [facility] Start: 07-07-2022 End: 01-11-2023 No recent foreign travel No recent foreign travel [facility] Work Phone: Start: 12-06-2021 Tobacco smoking status [facility] Unknown if ever smoked [facility] Work Phone: Start: 12-06-2021 [facility] Start: 12-06-2021 Non-smoker [facility] Start: 1940 Sex Assigned At Male [facility] Start: 03-08-1954 End: 03-08-1964 History of tobacco use Current smoker [facility] Work Phone: Start: 03-08-1954 End: 03-08-1964 History of tobacco use Cigarette Smoker [facility] Work Phone: Start: 07-07-2022 End: 07-20-2023 Tobacco use and exposure Smokeless tobacco non-user [facility] Work Phone: Start: 07-07-2022 Alcohol intake Lifetime non-d marii (finding) [facility] Work Phone: Start: 07-07-2022 End: 01-11-2023 Tobacco use panel [facility] Work Phone: Start: 07-05-2022 Gender identity Identifies as male gender (finding) [facility] Work Phone: Start: 06-27-2022 End: 01-20-2024 Exposure to SARS-CoV-2 (event) Not sure [facility] Start: 01-11-2023 End: 01-20-2024 Alcohol intake Ex-drinker (finding) [facility] Work Phone: NEGATED: Highlighted row - - [facility] Work Phone: Functional Status Date Assessment Result Facility NEGATED: Highlighted row Functional performance Functional status health issues are not documented Disease [facility] Work Phone: Mental Status Date Assessment Result Facility 12-06-2021 Cognitive function Awake;Alert;A ppropria te;Inappropriate [facility] Work Phone: NEGATED: Highlighted row Cognitive function [Interpretation] Cognitive status health issues are not documented Disease [facility] Work Phone: Clinical Notes 01-09-2021 to [...] Bilateral renal cysts Cervical spondylolysis 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 Diabetic mononeuropathy [...] Established; Future documented in this encounter [facility] Work Phone: 07-20-2023 History of Present illness [...] States in August had pressure sore, used [place] and it cleared, but notes today he [...] prostatic hyperplasia with urinary obstruction 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 documented in this encounter [facility] Work Phone: 01-11-2023 History of Present illness [...] on confused days. Follows with urologist in [place]. CERVICAL SPONDYLOSIS WITHOUT MYELOPATHY - has been [...] Normal appearance. Comments: Most of history from [place]: Head: Normocephalic. Right Ear: Tympanic membrane, ear [...] renal cysts Cervical spondylolysis Coronary atherosclerosis of atka coronary artery Relevant Medications clopidogrel (Plavix) 75 [...] appetite. Patient initially seen by Melody Dunham [employer] student. I reviewed history and examined patient independently and updated as needed. documented in this encounter [facility] Work Phone: 07-07-2022 History of Present illness [...] Present, No bruit present. Integumentary: Warm, Dry, [place]. Psychiatric: Cooperative, Appropriate mood & affect, Normal judgment. Behavior: No pressured speech. Judgment: Able to make sensible decisions. Thought process: Appropriate. Low back not tender but tight with extension. 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 Risk prevention instructions provided. He was in the yard. Stumbled due to slow reflexes. When having more confusion. No injury documented in this encounter [facility] Work Phone: 07-07-2022 Instructions Len Duque MD [...] your healthcare team if you have questions [facility], 2021 documented in this encounter [facility] Work Phone: 01-13-2022 History of Present illness [...] Did have some swelling when driving to [place] after a long drive without walks.Having some leaking urine that is better on the medication. [facility] Work Phone: 01-09-2021 History of Present [...] up words. Names OK. 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 Last day is tomorrow. 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 (CMS/HCC) Diabetic [...] Urge incontinence documented in this encounter [facility] Work Phone: Evaluation note* Diagnosis Routine general medical examination at health care facility- Primary Routine general medical examination at a health care facility 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, psychotic disturbance, mood disturbance, or anxiety (CMS/HCC) Hypercholesterolemia Pure hypercholesterolemia 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 (CMS/HCC) Primary [...] skin (CMS/HCC) documented in this encounter [facility] Work Phone: Evaluation note* Diagnosis 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 (CMS/HCC)- Primary Abnormal weight loss Loss of weight 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, psychotic disturbance, mood disturbance, or anxiety (CMS/HCC) documented in this encounter [facility] Work Phone: Evaluation note* Diagnosis Abnormal weight loss- Primary Loss of weight 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 I believe your pain is related to muscles in the chest wall. 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, psychotic disturbance, mood disturbance, or anxiety (CMS/HCC) Procedures Follow Up In Primary Care Len Duque MD [address] [facility], [place] [address] Referral ID Status Reason Start Date Expiration Date V isits Requested Visits Authorized [id number] Authorized 07/07/2022 01/03/2023 1 1 T [facility] Work Phone: reason for referral (narrative)* Consultation (Routine) - Authorized Specialty Diagnoses / Procedures Referred By Contac t Referred To Contact Primary Care Diagnoses Abnormal weight loss Procedures Follow Up In Primary Care - Established Len Duque MD [address] [facility], [place] [address] Referral ID Status Reason Start Date Expiration Date V isits Requested Visits Authorized [id number] Authorized 01/11/2023 01/11/2024 1 1 [facility] Work Phone: reason for referral (narrative)* Consultation (Routine) - Authorized Specialty Diagnoses / Procedures Referred By Contac t Referred To Contact Primary Care Procedures Follow Up In Primary Care - Established Len Duque MD [address] [facility], [place] [address] Referral ID Status Reason Start Date Expiration Date V isits Requested Visits Authorized [id number] Authorized 02/23/2023 02/23/2024 1 1 [facility] Work Phone: reason for referral (narrative)* Consultation (Routine) - Authorized Specialty Diagnoses / Procedures Referred By Contac t Referred To Contact Primary Care Diagnoses 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) Procedures Follow Up In Primary Care - Established Len Duque MD [address] [facility], [place] [address] Referral ID Status Reason Start Date Expiration Date V isits Requested Visits Authorized [id number] Authorized 07/20/2023 07/19/2024 1 1 [facility] Work Phone: reason for referral (narrative)* Consultation (Routine) - Authorized Specialty Diagnoses / Procedures Referred By Ferny ayoub Referred To Contact Primary Care Procedures Follow Up In Primary Care - Established Len Duque MD [address] [facility], [facility] [address] [id number] Phone: tel: fax: Referral ID Status Reason Start Date Expiration Date V isits Requested Visits Authorized [id number] Authorized 01/20/2024 01/19/2025 1 1 [facility] Work Phone: Rejyhu for referral (narrative)No reason for referral information availableSharp [facility] Work Phone: Assessments Diagnosis Coronary artery disease, ang cody presence unspecified, unspecified vessel or lesion type, unspecified whether atka or transplanted heart Essential hypertension Unspecified essential [...] Will Yes December 06 4:12am Power of Purchasing Engineer Yes December 06 4:12am Name of Medical Power of Purchasing Engineer Yamila Young December 06, 2021 4:12am Chief Complaint medckfollow up memantine Chief Complaint and Reason for Visit Chief Complaint cp Chief Complaint Admit Date ADMISSION EXAM August 07, 2024 2:45p m Chief Complaint Admit Date ADMISSION EXAM August 07, 2024 2:45p m ADMISSION EXAM August 08, 2024 4:30p m ASSISTED LAB WORK August 22, 2024 5: 00am Chief Complaint Admit Date ADMISSION EXAM August 07, 2024 2:45p m ADMISSION EXAM August 08, 2024 4:30p m ASSISTED LAB WORK August 22, 2024 5: 00am Monthly Exam September 05, 2024 10:28 pm Chief Complaint Admit Date ADMISSION EXAM August 07, 2024 2:45p m ADMISSION EXAM August 08, 2024 4:30p m ASSISTED LAB WORK August 22, 2024 5: 00am Monthly Exam September 05, 2024 10:28 pm ASSISTED LAB WORK October 02, 2024 5: 00am MONTHLY EXAM October 06, 2024 11: 00am Chief Complaint Admit Date ADMISSION EXAM August 07, 2024 2:45p m ADMISSION EXAM August 08, 2024 4:30p m ASSISTED LAB WORK August 22, 2024 5: 00am Monthly Exam September 05, 2024 10:28 pm ASSISTED LAB WORK October 02, 2024 5: 00am MONTHLY EXAM October 06, 2024 11: 00am ASSISTED LAB WORK October 27, 2024 11:00am New [...] section and content) DATE CREATED AUTHOR 07/17/2018 [facility] DATE CREATED AUTHOR AUTHOR'S ORGANIZ ATION 06/24/2020 [facility] DATE CREATED AUTHOR AUTHOR'S ORGANIZ ATION 02/18/2022 [employer] DATE CREATED AUTHOR AUTHOR'S ORGANIZ ATION 04/20/2022 [facility] DATE CREATED AUTHOR AUTHOR'S ORGANIZ ATION 01/25/2024 [facility] DATE CREATED AUTHOR AUTHOR'S ORGANIZ ATION 07/17/2024 [facility] DATE CREATED AUTHOR AUTHOR'S ORGANIZ ATION 09/02/2024 [facility] DATE CREATED AUTHOR AUTHOR'S ORGANIZ ATION 01/14/2025 [facility] Goals (unrecognized section and [...] Len Duque MD [address] [facility], [place] [id number] Referral ID Status Reason Start Date Expiration Date V isits Requested Visits Authorized [id number] Authorized 02/23/2023 02/23/2024 1 1 Reason Comments Medicare Annual Wellness Visit Initial Specialty Diagnoses / Procedures Referred By Contac t Referred To Contact Primary Care Diagnoses 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, psychotic disturbance, mood disturbance, or anxiety ([facility]) Procedures Follow Up In Primary Care Len Duque MD [address] [place] [facility], [place] [id number] Referral ID Status Reason Start Date Expiration Date Visits Re quested Visits Authorized [id number] Closed 07/07/2022 01/03/2023 1 1 Reason Comments Follow-up memory Specialty Diagnoses / Procedures Referred By Contac t Referred To Contact Primary Care Diagnoses Abnormal weight loss Procedures Follow Up In Primary Care - Established Len Duque MD [address] [facility], [place] [id number] Referral ID Status Reason Start Date Expiration Date V isits Requested Visits Authorized [id number] Authorized 01/11/2023 01/11/2024 1 1 Specialty Diagnoses / Procedures Referred By Contac t Referred To Contact Primary Care Diagnoses 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) Procedures Follow Up In Primary Care - Established Len Duque MD [address] [facility], [place] [id number] Phone: tel: fax: Referral ID Status Reason Start Date Expiration Date V isits Requested Visits Authorized [id number] Authorized 07/20/2023 07/19/2024 1 1 Care Teams (unrecognized sec tion and content) Resin Coater Relationship Specialty Start Date End Date Len Duque MD [address] [facility], [address] [place] [address] PCP - General 11/08/18 Resin Coater Relationship Specialty Start Date End Date Len Duque MD [address] [facility], [address] [place] [address] PCP - General 11/08/18 Resin Coater Relationship Specialty Start Date End Date Len Duque MD [address] [facility], [address] [place] [address] PCP - General 11/08/18 Resin Coater Relationship Specialty Start Date End Date Len Duque MD [address] [facility], [address] [place] [address] PCP - General 11/08/18 Resin Coater Relationship Specialty Start Date End Date Len Duque MD [address] [facility], [address] [place] [address] PCP - General 11/08/18 Team Status: Active Member Role/Relationship Status Dates Dr. Len Duque MD Family Provider Active Dr. Len Duque MD Primary Care Provider Active Team Status: Inactive Member Role/Relationship Status Dates Dr. Len Duque MD Primary Care Provider Active Start: August 07, 2024 End: August 07, 2024 Kirti Ortiz CONSERVATION PLANNER, CONSERVATION PLANNER-C Attending Provider Active Start: August 07, 2024 [...] End: October 27, 2024 Kirti Ortiz NP, CONSERVATION PLANNER-C Attending Provider Active Start: October 27, 2024 [...] BE BASED ON THE PRIMARY CLINICAL RECORDS. [facility] [employer] [facility] provides no warranty or guarantee of the accuracy or completeness of information in this document.
== END 2025-02-21 12:06 | disposition home or self-care (01) ==
PROVIDERS: Emergency Provider Emergency Medicine; PCP Physician Assistant; Visit Provider Emergency Medicine
DX: K06.8 Other specified disorders of gingiva and edentulous alveolar ridge (principal); F03.90 Unspecified dementia, unspecified severity, without behavioral disturbance, psychotic disturbance, mood disturbance, and anxiety; E11.9 Type 2 diabetes mellitus without complications; I10 Essential (primary) hypertension; E78.5 Hyperlipidemia, unspecified; I25.10 Atherosclerotic heart disease of native coronary artery without angina pectoris; Z87.891 Personal history of nicotine dependence; K21.9 Gastro-esophageal reflux disease without esophagitis
CPT/HCPCS: 99284